=== PATIENT | male | born 1955 | race Caucasian/White ===

== ENCOUNTER 2016-10-18 18:50 | Inpatient (IN) | payer OTHER, BC ==
[2016-10-18] MEDS ORDERED: SODIUM CHLORIDE 500 ML IV STA (19:24)
[2016-10-18 19:26] VITALS: BMI 30.4
[2016-10-18 19:53] LABS: URINE APPEARANCE CLEAR; URINE BILIRUBIN NEGATIVE (NEGATIVE); URINE BLOOD NEGATIVE (NEGATIVE); URINE COLOR DKYELLOW; URINE GLUCOSE (UA) NEGATIVE (NEGATIVE); URINE KETONE NEGATIVE (NEGATIVE); URINE LEUK ESTERASE NEGATIVE (NEGATIVE); URINE NITRITE NEGATIVE (NEGATIVE); URINE UROBILINOGEN NEGATIVE E.U./dl (0.2-1.0)
[2016-10-18 20:03] LABS: URINE PROTEIN 2+ (NEGATIVE)
[2016-10-18 20:11] LABS: BASOPHIL 0.8 % (0-2.0); EOSINOPHIL 7.9 % (0-4.5); MCH 33.2 pg (25.7-33.7); MCHC 33.2 g/dl (32.0-35.9); MEAN CELL VOLUME 99.9 fl (80-96); MEAN PLT VOLUME 8.2 fl (7.5-11.1); NEUTROPHILS 77.3 % (42.8-82.8); PLATELET COUNT 195 K/MM3 (134-434); RDW 13.9 % (11.9-15.9)
[2016-10-18] MEDS ORDERED: FAMOTIDINE 20 MG/50 ML IVPB 50 ML IVPB ONE ×2 (20:14→20:20)
[2016-10-18] MEDS ORDERED: PANTOPRAZOLE SODIUM 100 ML IVPB ONE (20:14)
[2016-10-18 20:16] LABS: URINE MUCUS MANY; URINE RBC 1 /hpf (0-3); URINE WBC 2 /hpf (3-5)
[2016-10-18] MEDS ORDERED: PANTOPRAZOLE SODIUM 40 MG in SODIUM CHLORIDE 100 ML IVPB ONE (20:20)
[2016-10-18 20:38] LABS: INR 1.09 (0.82-1.09)
[2016-10-18 20:40] LABS: ACTIVATED PTT 33.6 SECONDS (26.9-34.4)
[2016-10-18] MEDS ORDERED: SODIUM CHLORIDE 1,000 ML IV SCH (21:00)
[2016-10-18] MEDS ORDERED: dilTIAZem HCL 50 MG/10 ML - 10 ML VIAL IVPUSH ONE (21:00)
[2016-10-18] MEDS ORDERED: dilTIAZem HCL 125 MG/25 ML - 25 ML VIAL ONE (21:06)
[2016-10-18] MEDS ORDERED: HYDROmorphone HCL CARPU-JECT 1 MG/1 ML DISP.SYRIN IVPB ONE (21:42)
--- NOTE | 2016-10-18 21:45 | PDOC ---
History of Present Illness - General Chief Complaint: Vomiting/Diarrhea Stated Complaint: VOMITING/DIARRHEA Time Seen by Provider: 10/18/16 19:05 History Source: Patient, Family Exam Limitations: No Limitations - History of Present Illness Travel History: No Initial Comments: 10/18/16 21:45 61yo Male patient w/ PmHx COPD, Afib, Stage 4 Melanoma metasatic, Nephrectomy ( left) presented to ED c/o nausea, DM, vomiting x 8 w/ diarrhea that began this morning. 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 Patient last chemo dose: . Denies CP, Diff breathing, back pain, fever, rectal bleeding, hematuria, hematemesis, dysuria, or any other complaints at this time. Oncologist: Dr. Glover. PCP: Dr. Andrade. Timing/Duration: reports: constant Quality: reports: severe Abdominal Pain Onset Location: reports: generalized abdomen Pain Radiation: reports: no radiation Activities at Onset: reports: no specific activity Treatment Prior to Arrive: worse with: analgesics, antacids, cold pack, heat, laxative, enema, other Aggravating Factors: worse with: None, Defecation, Eating, Emotional upset, Exertion, [place], Movement, Voiding, Change in position Alleviating Factors: improves with: Defecation, Passing Gas Past History - Travel Traveled outside of the country in the last 30 days: No Close contact w/someone who was outside of country & ill: No - Past Medical History Allergies/Adverse Reactions: Allergies Allergy/AdvReac Type Severity Reaction Status Date / Time codeine [Codeine] AdvReac Severe abd pain Verified 10/18/16 19:05 morphine AdvReac Severe Verified 10/18/16 19:05 Home Medications: Ambulatory Orders Budesonide/Formoterol Fumarate [Symbicort 160-4.5 Mcg Inhaler] 1 ih IH BID 11/07 Metformin HCl [Metformin HCl ER] 500 mg PO BID 12/09/15 Metoprolol Succinate [Toprol XL -] 50 mg PO HS 12/09/15 Albuterol Sulfate Inhaler - [Ventolin HFA Inhaler -] 1 - 2 inh PO Q4H PRN Ascorbic Acid [Vitamin C -] 100 mg PO DAILY 04/09/16 Ferrous Sulfate [Feosol] 325 mg PO BID 04/09/16 Gabapentin [Neurontin] 600 mg PO TID 04/09/16 Metoprolol Succinate [Toprol XL -] 100 mg PO AM 04/09/16 Alprazolam [Xanax] 0.5 mg PO Q8H PRN #42 tablet MDD 1.5 04/12/16 Digoxin [Lanoxin -] 0.25 mg PO DAILY #30 tablet 04/12/16 Dexamethasone [Decadron -] 2 mg PO BID 04/21/16 Pantoprazole Sodium [Protonix -] 40 mg PO DAILY 10/18/16 Prednisone 5 mg PO AM 10/18/16 Prednisone [Deltasone -] 2.5 mg PO HS 10/18/16 Repaglinide [Prandin -] 2 mg PO DAILY 10/18/16 Anemia: No Asthma: Yes Cancer: Yes (MELANOMA stage 4) Cardiac Disorders: Yes (AFIB, SVT) CVA: No COPD: Yes CHF: No Dementia: No Diabetes: No GI Disorders: No Disorders: No HTN: No Hypercholesterolemia: Yes Liver Disease: No Suicide Attempt (Hx): No Seizures: (CLEARED MASS IN FRONTAL LOBE) Thyroid Disease: No - Surgical History Abdominal Surgery: Yes (HOLLY INGUINAL HERNIA REPAIR X2) Appendectomy: No Cardiac Surgery: No (CARDIAC CATH 07/2008 CLEAR) Cholecystectomy: Yes Lung Surgery: No Neurologic Surgery: Yes (CRANIOTOMY 11/18) Orthopedic Surgery: Yes (left femoral dissection and total knee replacement) - Immunization History Td Vaccination: No TDAP Vaccination: No Immunization Up to Date: No - Psycho/Social/Smoking Cessation Hx Anxiety: No Suicidal Ideation: No Smoking Status: No Smoking History: Former smoker Have you smoked in the past 12 months: No Number of Cigarettes Smoked Daily: 0 If you are a former smoker, when did you quit?: 17yrs ago Information on smoking cessation initiated: No 'Breaking Loose' booklet given: 04/22/16 Hx Alcohol Use: Yes (occasional) Drug/Substance Use Hx: No Substance Use Type: None Hx Substance Use Treatment: No Abd/GI Specific PMHX - Complaint Specific PMHX Colitis: Yes Diverticulitis: Yes Gall Bladder Disease: No GERD: No Hepatitis: No Irritable Bowel Synd (IBS): No Pancreatitis: No GI Ulcer Disease: No Review of Systems - Review of Systems Able to Perform ROS?: Yes Is the patient limited Japanese proficient: No Constitutional: No: Chills, Fever Respiratory: No: Orthopnea, Shortness of Breath, Stridor, Wheezing Cardiac (ROS): No: Chest Pain, Lightheadedness, Palpitations, Syncope, Chest Tightness ABD/GI: Yes: Abdominal Distended, Diarrhea, Nausea, Vomiting, Abdominal cramping. No: Constipated, Difficulty Swallowing, Poor Appetite, Poor Fluid Intake, Rectal Bleeding : No: Burning, Dysuria, Flank Pain, Hematuria Musculoskeletal: Yes: Muscle Weakness. No: Back Pain Integumentary: Yes: Sweating. No: Bruising, Erythema, Rash Neurological: Yes: Headache. No: Numbness, Seizure, Tingling, Tremors, Weakness , Unsteady Gait, Ataxia, Dizziness All Other Systems: Reviewed and Negative *Physical Exam - Vital Signs Last Vital Signs Temp Pulse Resp BP Pulse Ox 99.0 F 160 H 18 120/68 93 L 10/18/16 18:50 10/18/16 18:50 10/18/16 18:50 10/18/16 18:50 10/18/16 18:50 - Physical Exam General Appearance: Yes: Nourished, Appropriately Dressed, Moderate Distress. No: Apparent Distress Respiratory/Chest: positive: Lungs Clear, Normal Breath Sounds. negative: Respiratory Distress, Accessory Muscle Use, Labored Respiration, Rapid RR, Crackles, Rales, Stridor, Wheezing Cardiovascular: positive: Tachycardia, Irregular Gastrointestinal/Abdominal: positive: Soft, Increased Bowel Sounds, Distended, Tenderness (generalized tenderness on examination. Neg [place] Sign). negative : Guarding, Rebound Musculoskeletal: positive: Normal Inspection. negative: CVA Tenderness Extremity: positive: Normal Capillary Refill, Normal Inspection, Normal Range of Motion. negative: Pedal Edema, Swelling, Erythema, Inflammation Integumentary: positive: Normal Color, Dry, Warm, Moist. 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, Fully Oriented, Alert, Normal Mood/ Affect, Normal Response, Motor Strength 5/5 Heart Score/ECG Review - ECG Impressions Normal ECG: No Non-specific ST Elevation: No Ischemic Changes: No Bradycardia: No Tachycardia: Afib w/rapid Vent rate Torsades bell Pointes: No WPW: No ED Treatment Course - LABORATORY CBC & Chemistry Diagram: 10/18/16 19:30 10/18/16 22:00 - ADDITIONAL ORDERS Additional order review: Laboratory Results 10/18/16 10/18/16 10/18/16 19:30 19:30 19:30 INR 1.09 PTT (Actin FS) 33.6 D Sodium Cancelled Potassium Cancelled Chloride Cancelled Carbon Dioxide Cancelled Anion Gap Cancelled BUN Cancelled Creatinine Cancelled Creat Clearance w eGFR Cancelled Random Glucose Cancelled Calcium Cancelled Phosphorus Cancelled Magnesium Cancelled Total Bilirubin Cancelled AST Cancelled ALT Cancelled Alkaline Phosphatase Cancelled Creatine Kinase Cancelled Troponin I Cancelled B-Natriuretic Peptide Cancelled Total Protein Cancelled Albumin Cancelled Total Amylase Cancelled Lipase Cancelled Urine Color Urine Appearance Urine pH Ur Specific [place] Urine Protein Urine Glucose (UA) Urine Ketones Urine Blood Urine Nitrite Urine Bilirubin Urine Urobilinogen Ur Leukocyte Esterase Urine RBC Urine WBC Ur Epithelial Cells Urine Mucus 10/18/16 19:20 INR PTT (Actin FS) Sodium Potassium Chloride Carbon Dioxide Anion Gap BUN Creatinine Creat Clearance w eGFR Random Glucose Calcium Phosphorus Magnesium Total Bilirubin AST ALT Alkaline Phosphatase Creatine Kinase Troponin I B-Natriuretic Peptide Total Protein Albumin Total Amylase Lipase Urine Color Dkyellow Urine Appearance Clear Urine pH 5.0 Ur Specific [place] 1.032 Urine Protein 2+ H Urine Glucose (UA) Negative Urine Ketones Negative Urine Blood Negative Urine Nitrite Negative Urine Bilirubin Negative Urine Urobilinogen Negative Ur Leukocyte Esterase Negative Urine RBC 1 Urine WBC 2 Ur Epithelial Cells Rare Urine Mucus Many 10/18/16 19:30 RBC 4.72 D MCV 99.9 H MCHC 33.2 RDW 13.9 D MPV 8.2 Neutrophils % 77.3 Lymphocytes % 6.5 L Monocytes % 7.5 Eosinophils % 7.9 H D Basophils % 0.8 - RADIOLOGY Radiology Studies Ordered: Category Date Time Status ABDOMEN & PELVIS CT W/O CONTR [CT] Stat CT Scan 10/18/16 21:03 Ordered CHEST X-RAY PORTABLE* [RAD] Stat Radiology 10/18/16 19:23 Taken - Medications Given in the ED: ED Medications Discontinued Medications Generic Name Dose Route Start Last Admin Trade Name Freq PRN Reason Stop Dose Admin Diltiazem HCl 10 mg 10/18/16 21:00 10/18/16 21:21 Cardizem Injection - IVPUSH 10/18/16 21:01 10 mg ONCE ONE Administration Sodium Chloride 500 mls @ 500 mls/hr 10/18/16 19:24 10/18/16 19:30 Normal Saline - IV 10/18/16 20:23 500 mls/hr ASDIR STA Administration Pantoprazole Sodium 40 mg/ 100 mls @ 200 mls/hr 10/18/16 20:20 10/18/16 20:20 Sodium Chloride IVPB 10/18/16 20:49 200 mls/hr NOW ONE Administration Famotidine/Sodium Chloride 50 mls @ 100 mls/hr 10/18/16 20:20 10/18/16 21:02 Pepcid 20 Mg Premixed Ivpb - IVPB 10/18/16 20:49 100 mls/hr ONCE ONE Administration *DC/Admit/Observation/Transfer Diagnosis at time of Disposition: Dehydration, Gastroenteritis - Discharge Dispostion Condition at time of disposition: Fair Admit: Yes - Referrals Referrals: Rodrigo Andrade MD [Primary Care Provider] -
[2016-10-18] MEDS ORDERED: HYDROmorphone HCL CARPU-JECT 1 MG/1 ML DISP.SYRIN ONE (21:57)
[2016-10-18 22:47] LABS: ALBUMIN 3.3 g/dl (3.4-5.0); ANION GAP 11 (8-16); BILIRUBIN,TOTAL 0.7 mg/dL (0.2-1.0); CALCIUM 7.7 mg/dL (8.5-10.1); CO2 25 mmol/L (21-32); COCKROFT - GAULT 95.33; GLUCOSE,RANDOM 147 mg/dL (74-106); MAGNESIUM 1.9 mg/dL (1.8-2.4); PHOSPHOROUS 1.7 mg/dL (2.5-4.9); SGOT/AST 23 U/L (15-37); SGPT/ALT 51 U/L (12-78); TOT PROT 6.4 g/dl (6.4-8.2)
[2016-10-18 22:50] LABS: ALK PHOS 106 U/L (45-117); TROPONIN I < 0.02 ng/ml (0.00-0.05)
[2016-10-19] MEDS ORDERED: HYDROmorphone HCL CARPU-JECT 1 MG/1 ML DISP.SYRIN IVPUSH ONE (04:07)
[2016-10-19] MEDS ORDERED: METOPROLOL SUCCINATE 50 MG TAB.SR.24H (FP) PO ONE (04:09)
[2016-10-19] MEDS ORDERED: ALBUTEROL SO4 2.5/IPRATROPIUM 0.5 INH SOL 3 ML VIAL.NEB. NEB ONE (04:23)
--- NOTE | 2016-10-19 04:36 | HP ---
CHIEF COMPLAINT: N/V/D PCP: Lupe HISTORY OF PRESENT ILLNESS: This is a 60 year old male with a past medical history of Stage 4 melanoma with mult surgeries and mets, adrenal insufficiency, HTN, HLD, atrial fibrillation, COPD/Asthma, diverticulosis with GI bleed, colitis who presented to the ED with c/o nausea, vomiting, diarrhea since AM on 10/18/16. Last time he vomited was 3pm. No further vomiting since, but 9 episodes diarrhea total. Pt denies any blood in stool. ER course was notable for: (1) WBC 10, Lactic acid 1.371 (2) CT abdomen and pelvis completed, see results below (3) arrived in afib with RVR, converted after NS Recent Travel: pt denies Past Medical / Surgical History Stage 4 melanoma with mets s/p 6 surgeries: 2005 initial removal on chin; 2009 Left nephrectomy; 2011 brain-frontal lobe resection; 2013 L femur resection; 2014 L TKR and partial femur replacement Diverticulosis with bleed s/p clipping 12/2015 adrenal insufficiency HTN Hyperlipidemia Atrial fibrillation COPD/Asthma B/L inguinal hernia repair Social History: Smoking: Quit 17y ago Alcohol: pt denies Drugs: pt denies Family History: mother with OA, father with OA, DM; 3 grandparents with CA , 1 with [place], 2 sisters healthy Allergies codeine [Codeine] Adverse Reaction (Severe, Verified 10/18/16 19:05) abd pain morphine Adverse Reaction (Severe, Verified 10/18/16 19:05) ABD PAIN HOME MEDICATIONS: 3 Medication Instructions Recorded Budesonide/Formoterol Fumarate 1 ih IH BID 11/08/11 [Symbicort 160-4.5 Mcg Inhaler] Metformin HCl [Metformin HCl ER] 500 mg PO BID 12/09/15 Metoprolol Succinate [Toprol XL -] 50 mg PO HS 12/09/15 Albuterol Sulfate Inhaler - 1 - 2 inh PO Q4H PRN 04/09/16 [Ventolin HFA Inhaler -] Ascorbic Acid [Vitamin C -] 100 mg PO DAILY 04/09/16 Ferrous Sulfate [Feosol] 325 mg PO BID 04/09/16 Gabapentin [Neurontin] 600 mg PO TID 04/09/16 Metoprolol Succinate [Toprol XL -] 100 mg PO AM 04/09/16 Alprazolam [Xanax] 0.5 mg PO Q8H PRN #42 tablet MDD 04/12/16 1.5 Digoxin [Lanoxin -] 0.25 mg PO DAILY #30 tablet 04/12/16 Dexamethasone [Decadron -] 2 mg PO BID 04/21/16 Pantoprazole Sodium [Protonix -] 40 mg PO DAILY 10/18/16 Prednisone 5 mg PO AM 10/18/16 Prednisone [Deltasone -] 2.5 mg PO HS 10/18/16 Repaglinide [Prandin -] 2 mg PO DAILY 10/18/16 REVIEW OF SYSTEMS CONSTITUTIONAL: Absent: fever, chills, diaphoresis, generalized weakness, malaise, loss of appetite, weight change HEENT: Absent: rhinorrhea, nasal congestion, throat pain, throat swelling, difficulty swallowing, mouth swelling, ear pain, eye pain, visual changes CARDIOVASCULAR: Absent: chest pain, syncope, palpitations, irregular heart rate, lightheadedness , peripheral edema RESPIRATORY: Absent: cough, shortness of breath, dyspnea with exertion, orthopnea, wheezing, stridor, hemoptysis GASTROINTESTINAL: Present: abdominal pain, nausea, vomiting, diarrhea Absent: abdominal distension, constipation, melena, hematochezia GENITOURINARY: Absent: dysuria, frequency, urgency, hesitancy, hematuria, flank pain, genital pain MUSCULOSKELETAL: Absent: myalgia, arthralgia, joint swelling, back pain, neck pain SKIN: Absent: rash, itching, pallor HEMATOLOGIC/IMMUNOLOGIC: Absent: easy bleeding, easy bruising, lymphadenopathy, frequent infections ENDOCRINE: Absent: unexplained weight gain, unexplained weight loss, heat intolerance, cold intolerance NEUROLOGIC: Absent: headache, focal weakness or paresthesias, dizziness, unsteady gait, seizure, mental status changes, bladder or bowel incontinence PSYCHIATRIC: Absent: anxiety, depression, suicidal or homicidal ideation, hallucinations. PHYSICAL EXAMINATION Vital Signs - 24 hr 3 10/18/16 10/18/16 18:50 21:20 Temperature 99.0 F Pulse Rate 160 H Pulse Rate [ 120 H Apical] Respiratory 18 20 Rate Blood Pressure 120/68 Blood Pressure 136/83 [Right Arm] O2 Sat by Pulse 93 L 94 L Oximetry (%) GENERAL: Awake, alert, and fully oriented, in no acute distress. HEAD: Normal with no signs of trauma. EYES: Pupils equal, round and reactive to light, extraocular movements intact, sclera anicteric, conjunctiva clear. No lid lag. EARS, NOSE, THROAT: Ears normal, nares patent, oropharynx clear without exudates. Moist mucous membranes. NECK: Normal range of motion, supple without lymphadenopathy, JVD, or masses. LUNGS: inspiratory and expiratory wheezing bilaterally HEART: Regular rate and rhythm, normal S1 and S2 without murmur, rub or gallop. ABDOMEN: Soft, nontender, not distended, normoactive bowel sounds, no guarding, no rebound, no masses. No hepatomegaly or splenomegaly. MUSCULOSKELETAL: Normal range of motion at all joints. No bony deformities or tenderness. No CVA tenderness. UPPER EXTREMITIES: 2+ pulses, warm, well-perfused. No cyanosis. No clubbing. No peripheral edema. LOWER EXTREMITIES: 2+ pulses, warm, well-perfused. No calf tenderness. No peripheral edema. NEUROLOGICAL: Cranial nerves II-XII intact. Normal speech. Normal gait. PSYCHIATRIC: Cooperative. Good eye contact. Appropriate mood and affect. SKIN: Warm, dry, normal turgor, no rashes or lesions noted, normal capillary refill. Laboratory Results - last 24 hr 3 10/18/16 10/18/16 10/18/16 10/18/16 10/18/16 19:30 19:30 22:00 22:02 02:00 WBC 10.0 RBC 4.72 D Hgb 15.7 D Hct 47.2 D MCV 99.9 H MCHC 33.2 RDW 13.9 D Plt Count 195 D MPV 8.2 Neutrophils % 77.3 Lymphocytes % 6.5 L Monocytes % 7.5 Eosinophils % 7.9 H D Basophils % 0.8 INR 1.09 PTT (Actin FS) 33.6 D Sodium 142 Potassium 3.6 Chloride 106 Carbon Dioxide 25 Anion Gap 11 BUN 17 D Creatinine 1.0 D Creat Clearance w eGFR > 60 Random Glucose 147 H D Lactic Acid 1.371 Calcium 7.7 L Phosphorus 1.7 L D Magnesium 1.9 Total Bilirubin 0.7 D AST 23 D ALT 51 D Alkaline Phosphatase 106 D Creatine Kinase 49 Troponin I < 0.02 B-Natriuretic Peptide Cancelled 89.23 Total Protein 6.4 D Albumin 3.3 L D Total Amylase 41 Lipase 164 Urine Color Urine Appearance Urine pH Ur Specific [place] Urine Protein Urine Glucose (UA) Urine Ketones Urine Blood Urine Nitrite Urine Bilirubin Urine Urobilinogen Ur Leukocyte Esterase Urine RBC Urine WBC Ur Epithelial Cells Urine Mucus 3 Urine Color Dkyellow 10/18/16 19:20 Urine Appearance Clear 10/18/16 19:20 Urine pH 5.0 (5.0-8.0) 10/18/16 19:20 Ur Specific [place] 1.032 (1.001-1.035) 10/18/16 19:20 Urine Protein 2+ (NEGATIVE) H 10/18/16 19:20 Urine Glucose (UA) Negative (NEGATIVE) 10/18/16 19:20 Urine Ketones Negative (NEGATIVE) 10/18/16 19:20 Urine Blood Negative (NEGATIVE) 10/18/16 19:20 Urine Nitrite Negative (NEGATIVE) 10/18/16 19:20 Urine Bilirubin Negative (NEGATIVE) 10/18/16 19:20 Ur Leukocyte Esterase Negative (NEGATIVE) 10/18/16 19:20 Urine RBC 1 /hpf (0-3) 10/18/16 19:20 Urine WBC 2 /hpf (3-5) 10/18/16 19:20 Ur Epithelial Cells Rare /hpf (FEW) 10/18/16 19:20 Urine Mucus Many 10/18/16 19:20 CT abdomen and pelvis without contrast: IMAGES: 515 INDICATION: Abdominal pain DATE OF SERVICE: 2016-10-18 23:23:45.0 COMPARISON: 04/22/16 FINDINGS: Lung bases are clear. The visualized cardiac chambers are normal size and configuration. Status post left nephrectomy. Status post cholecystectomy without biliary duct dilation. There is new linear air in the left hepatic lobe and minimally in the right pedicle which could represent postoperative pneumobilia, which is new since the prior exam, portal venous air, suggesting bowel ischemia, cannot be excluded. The hepatic lobe calcification is unchanged.. 10 mm partially calcified density in the gallbladder fossa may represent a retained stone and is unchanged. There is no gallbladder fossa inflammation. Normal unenhanced pancreas, spleen, adrenal glands and right kidney. No change in left inferior lumbar hernia status post surgery which colon protrudes but is not entrapped. The stomach and small bowel are normal. There is diffuse liquids without colonic wall thickening suggesting a viral illness. Colonic diverticulosis without evidence of diverticulitis. There is no aortic aneurysm. There is no significant retroperitoneal lymphadenopathy. The appendix is normal. The urinary bladder and prostate gland are normal. No pelvic free fluid is identified. There is no significant pelvic lymphadenopathy. IMPRESSION: New air in the liver could represent postoperative pneumobilia, but portal venous air, suggesting bowel ischemia, cannot be excluded. Diffuse liquid stool without colonic wall thickening may indicate a diarrheal illness. Stable left inferior lumbar hernia without bowel obstruction. ECG: atrial fibrillation with RVR, rate 130, QTC 456, ST/T wave abnormality:ST depressions 2,3, aVF, v3-v6, present on old ECG but more pronounced, likely rate related. CXR: no acute infiltrate or effusion seen, official read pending. ASSESSMENT/PLAN: 60yM with PMH stage 4 melanoma w/ mult mets and surgeries, adrenal insufficiency , HTN, HLD, Afib, COPD/asthma, diverticulosis, colitis presented to the ED with nausea, vomiting and diarrhea x 1 day. He is being admitted for further management. Atrial fibrillation with RVR - likely due to hypovolemia r/t acute gastritis - now in sinus rhythm, HR improved in 110s - cont IV hydration - repeat ECG in am. - cont home toprol and digoxin - digoxin level. diarrhea/gastroenteritis - stool culture and stool for c diff to r/o other etiology - cont iv hydration, NS @100cc/hr, supportive care hypophosphatemia - 15mmol IVPB over 4 hours - 2 packets neutraphos now - repeat labs in am asthma - duoneb now and q4h PRN for wheezing - cont home symbicort - monitor resp status, change nebs to standing if no improvement or declining. HTN - cont home BP meds adrenal insufficiency - cont home prednisone DVT PPX - defer chemoprophylaxis for now, major GI bleed history FEN - NS @ 100cc/hr - repeat labs am - trial clear liquid diet in am Dispo: pt currently requires inpatient care for management of his emergent condition. Visit type - Emergency Visit Emergency Visit: Yes ED Registration Date: 10/18/16 Care time: The patient presented to the Emergency Department on the above date and was hospitalized for further evaluation of their emergent condition. - New Patient This patient is new to me today: Yes Date on this admission: 10/19/16 - Critical Care Critical Care patient: No
[2016-10-19] MEDS ORDERED: ALPRAZolam 0.25 MG TABLET PO PRN (04:38)
[2016-10-19] MEDS ORDERED: ALBUTEROL SO4 2.5/IPRATROPIUM 0.5 INH SOL 3 ML VIAL.NEB. NEB PRN (04:41)
[2016-10-19] MEDS ORDERED: SODIUM PHOSPHATE - 15 MM in SODIUM CHLORIDE 250 ML IVPB ONE (04:44)
[2016-10-19] MEDS ORDERED: NAPH,MB-DB/K PH,MBDB POWDER PACKET PO ONE (04:47)
[2016-10-19] MEDS: GABAPENTIN 300 MG CAPSULE (FP) PO SCH ×3 (06:42→21:32)
[2016-10-19] MEDS: predniSONE 5 MG TABLET (UD) PO SCH ×2 (06:42→22:43)
[2016-10-19 09:07] LABS: BASOPHIL 0.2 % (0-2.0); EOSINOPHIL 7.9 % (0-4.5); MCH 33.3 pg (25.7-33.7); MCHC 32.9 g/dl (32.0-35.9); MEAN CELL VOLUME 101.1 fl (80-96); MEAN PLT VOLUME 7.9 fl (7.5-11.1); NEUTROPHILS 70.9 % (42.8-82.8); PLATELET COUNT 167 K/MM3 (134-434); RDW 14.4 % (11.9-15.9); WHITE BLOOD COUNT 9.7 K/mm3 (4.0-10.0)
[2016-10-19 09:22] LABS: CALCIUM 7.3 mg/dL (8.5-10.1); COCKROFT - GAULT 79.44; CREATININE 1.2 mg/dL (0.7-1.3); MAGNESIUM 1.7 mg/dL (1.8-2.4)
[2016-10-19] MEDS ORDERED: FERROUS SO4 325 MG TABLET (FP) ONE (09:39)
[2016-10-19] MEDS: DIGOXIN 0.25 MG TABLET (FP) PO SCH (09:40)
[2016-10-19] MEDS: FERROUS SO4 325 MG TABLET (FP) PO SCH ×2 (09:40→21:32)
[2016-10-19] MEDS: BUDESONIDE/FORMETEROL FUMARATE 160/4.5 mcg INHALER IH SCH ×2 (09:40→22:43)
[2016-10-19] MEDS: METOPROLOL SUCCINATE 100 MG TAB.SR.24H (FP) PO SCH (09:40)
[2016-10-19] MEDS: PANTOPRAZOLE 40 MG TABLET (FP) PO SCH (09:40)
[2016-10-19] MEDS ORDERED: ACETAMINOPHEN 325 MG TABLET (FP) ONE (09:56)
[2016-10-19] MEDS ORDERED: DEXAMETHASONE 4 MG TABLET (FP) PO SCH (10:00)
[2016-10-19] MEDS ORDERED: MAGNESIUM SULF 50% (8.12 MEQ/2 ML-1 GM VIAL) IVPB ONE (10:45)
--- NOTE | 2016-10-19 10:46 | PN ---
Progress Note, Physician Chief Complaint: Asked to see for AF, well known to our service from previous admissions. 1. Metastatic melanoma to brain, bone and GI tract with previous GI bleed. 2. PAF Presents to ER w/ one day of nausea, vomiting and diarrhea. Was in AF with moderately elevated V-response, given cardizem with improvement. He denies chest pain, SOB, palps. No PND, orthopnea, edema or syncope. CT showed prior cholecystectomy, pneumobilia and non-specific dilated loops of bowel. PMH: as above. -multiple prior ortho surgeries for mets -Cholecystectomy -Prior cath non-obstructive. -COPD -DM -adrenal insufficiency -GI bleed History of Present Illness: ALL: Codeine and Morphine FH: non-contributory to this presentation SH: , lives with who is an RN here. One daughter. 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 - Current Medication List Current Medications: Active Medications Albuterol/Ipratropium (Duoneb -) 1 amp NEB Q4H PRN PRN Reason: SHORTNESS OF BREATH Alprazolam (Xanax -) 0.5 mg PO Q8H PRN PRN Reason: ANXIETY Budesonide/Formoterol Fumarate (Symbicort 160/4.5mcg -) 1 puff IH BID [facility] Last Admin: 10/19/16 09:40 Dose: Not Given Digoxin (Lanoxin -) 0.25 mg PO DAILY [facility] Last Admin: 10/19/16 09:40 Dose: 0.25 mg Ferrous Sulfate (Feosol -) 325 mg PO BID [facility] Last Admin: 10/19/16 09:40 Dose: 325 mg Gabapentin (Neurontin -) 600 mg PO TID [facility] Last Admin: 10/19/16 06:42 Dose: 600 mg Hydromorphone HCl (Dilaudid Injection -) 1 mg IVPUSH Q4H PRN PRN Reason: PAIN Sodium Chloride (Normal Saline -) 1,000 mls @ 100 mls/hr IV ASDIR [facility] Last Admin: 10/18/16 21:21 Dose: 100 mls/hr Magnesium Sulfate (Magnesium Sulfate) 2 gm IVPB ONCE ONE Stop: 10/19/16 10:46 Metoprolol Succinate (Toprol Xl -) 100 mg PO DAILY [facility] Last Admin: 10/19/16 09:40 Dose: 100 mg Metoprolol Succinate (Toprol Xl -) 50 mg PO HS [facility] Pantoprazole Sodium (Protonix -) 40 mg PO DAILY [facility] Last Admin: 10/19/16 09:40 Dose: 40 mg Prednisone (Deltasone -) 2.5 mg PO HS [facility] Prednisone (Deltasone -) 5 mg PO AM [facility] Last Admin: 10/19/16 06:42 Dose: 5 mg - Objective Vital Signs: Vital Signs Temperature 99.0 F 10/18/16 18:50 Pulse Rate 106 H 10/19/16 09:05 Respiratory Rate 18 10/19/16 09:05 Blood Pressure 113/58 10/19/16 09:05 O2 Sat by Pulse Oximetry (%) 96 10/19/16 09:05 Constitutional: Yes: Calm Eyes: Yes: Conjunctiva Clear Cardiovascular: Yes: Pulse Irregular Respiratory: Yes: CTA Bilaterally Gastrointestinal: Yes: Soft (hyperactive bowel sounds, no rebound or guarding.) Edema: No Neurological: Yes: Alert, Oriented ...Motor Strength: WNL Labs: CBC, BMP 10/19/16 08:15 10/19/16 08:15 INR, PTT INR 1.09 (0.82-1.09) 10/18/16 19:30 Laboratory Tests 12/17/15 10/18/16 10/18/16 06:00 19:30 22:00 WBC 7.3 D Hgb 9.5 L Plt Count 289 INR 1.09 Potassium Creatinine Magnesium Creatine Kinase 49 Troponin I < 0.02 B-Natriuretic Peptide Total Amylase Lipase 164 Digoxin 10/18/16 10/18/16 10/19/16 22:00 22:02 08:15 WBC 9.7 Hgb 14.5 Plt Count 167 INR Potassium Creatinine Magnesium Creatine Kinase Troponin I B-Natriuretic Peptide 89.23 Total Amylase 41 Lipase Digoxin 10/19/16 08:15 WBC Hgb Plt Count INR Potassium 4.1 Creatinine 1.2 Magnesium 1.7 L Creatine Kinase Troponin I B-Natriuretic Peptide Total Amylase Lipase Digoxin 1.0395 - ....Imaging EKG: Image Reviewed (AF with RVR 130bpm, diffuse NSST changes.) Assessment/Plan IMP: Metastatic melanoma Probable/suspected gastroenteritis PAF with RVR in setting gastroenteritis and dehydration REC: Heart rate improved now down to high 90s and low 100s after hydration and IV Cardizem. Continue home meds and IV fluid hydration, heart rate trend should continue to improved. Can use IV cardizem PRN for rates > 130bpm (sustained) Because of his mets to brain/GI tract with previous GI bleed, he has not been fully anticoagulated (risk > benefit) Would continue ASA 81mg as tolerated. GI evaluation is planned.
--- NOTE | 2016-10-19 12:10 | CON.PULM ---
Consult - History of Present Illness Chief Complaint: diarrhea History of Present Illness: 61 year old male developed rapid onset of large amounts of diarrhea and abdominal pain. No fever or hematochezia. No vomiting or hematemesis. No syncope or palpitations. No chest pain. Pt has COPD which has been stable for months. No recent cough, sputum or wheezing. PMH -Stage 4 melanoma (s/p multiple surgical procedures including craniotomy, nephrectomy, femoral bone resection and knee replacement-all for mets). He is s/ p multiple rounds and types of chemotherapies. He has been off chemotherapy since 04/24. Pt's last CT scans were in July. Pt is followed at [facility] re : his melanoma. -PAF -Adrenal Insufficience -COPD:streroid dependent - History Source History Provided By: Patient, Medical Record Limitations to Obtaining History: No Limitations - Past Medical History Cardio/Vascular: Yes: AFIB Pulmonary: Yes: Asthma, COPD Gastrointestinal: Yes: Other (Colitis) Renal/: Yes: Other (L Nephrectomy) Musculoskeletal: Yes: Chronic low back pain Endocrine: Yes: Other (AI) Dermatology: Yes: Melanoma - Past Surgical History Past Surgical History: Yes: Cholecystectomy - Alcohol/Substance Use Hx Alcohol Use: Yes (occasional) - Smoking History Smoking history: Former smoker Have you smoked in the past 12 months: No Aproximately how many cigarettes per day: 0 If you are a former smoker, when did you quit?: 17yrs ago - Social History Usual Living Arrangement: With Spouse History of Recent Travel: No Home Medications - Allergies Allergies/Adverse Reactions: Allergies Allergy/AdvReac Type Severity Reaction Status Date / Time codeine [Codeine] AdvReac Severe abd pain Verified 10/18/16 19:05 morphine AdvReac Severe Verified 10/18/16 19:05 - Home Medications Home Medications: Ambulatory Orders Budesonide/Formoterol Fumarate [Symbicort 160-4.5 Mcg Inhaler] 1 ih IH BID 11/07 Metformin HCl [Metformin HCl ER] 500 mg PO BID 12/09/15 Metoprolol Succinate [Toprol XL -] 50 mg PO HS 12/09/15 Albuterol Sulfate Inhaler - [Ventolin HFA Inhaler -] 1 - 2 inh PO Q4H PRN Ascorbic Acid [Vitamin C -] 100 mg PO DAILY 04/09/16 Ferrous Sulfate [Feosol] 325 mg PO BID 04/09/16 Gabapentin [Neurontin] 600 mg PO TID 04/09/16 Metoprolol Succinate [Toprol XL -] 100 mg PO AM 04/09/16 Alprazolam [Xanax] 0.5 mg PO Q8H PRN #42 tablet MDD 1.5 04/12/16 Digoxin [Lanoxin -] 0.25 mg PO DAILY #30 tablet 04/12/16 Pantoprazole Sodium [Protonix -] 40 mg PO DAILY 10/18/16 Prednisone 5 mg PO AM 10/18/16 Prednisone [Deltasone -] 2.5 mg PO HS 10/18/16 Repaglinide [Prandin -] 2 mg PO DAILY 10/18/16 Physical Exam Vital Sings: Vital Signs Temperature 99.0 F 10/18/16 18:50 Pulse Rate 106 H 10/19/16 09:05 Respiratory Rate 18 10/19/16 09:05 Blood Pressure 113/58 10/19/16 09:05 O2 Sat by Pulse Oximetry (%) 96 10/19/16 09:05 Constitutional: Yes: Moderate Distress Eyes: No: Sclera Icterus HENT: Yes: Atraumatic, Normocephalic Neck: Yes: Supple, Trachea Midline Cardiovascular: Yes: Pulse Irregular. No: JVD, Gallop Respiratory: Yes: CTA Bilaterally ...Clubbing: No Gastrointestinal: Yes: Hyperactive Bowel Sounds, Tenderness (diffuse). No: Hepatomegaly, Palpable Mass, Splenomegaly, Tenderness, Rebound, Vomiting Edema: No Neurological: Yes: Alert, Oriented Labs: CBC, BMP 10/19/16 08:15 10/19/16 08:15 Imaging - Results Chest X-ray: Report Reviewed, Image Reviewed (MORGAN) Cat Scan: Report Reviewed, Image Reviewed Problem List - Problems (1) Sepsis Code(s): A41.9 - SEPSIS, UNSPECIFIED ORGANISM (2) COPD (chronic obstructive pulmonary disease) Code(s): J44.9 - CHRONIC OBSTRUCTIVE PULMONARY DISEASE, UNSPECIFIED Assessment/Plan 61 year old male who developed diarrhea and air in the portal vein. -r/o Sepsis, r/o C.Difficile colitis -COPD-pt on systemic steroids because of adrenal insufficiency. Respiratory status is stable at present -PAF-ventricular rate OK -Metastatic Melanoma-off chemotx since 04/24: being monitored by oncology at [facility]-no recurrence at last evaluation. The case was discussed with Dr. Aranda and Dr. García Suggest Antibiotics per Dr. Rivers GI f/u Monitor for hypotension-fluids PRN. In addition since pt is known to have adrenal insufficiency, he may need additional systemic steroids while under physiologic stress secondary to infection. Symbicort Albuterol PRN O2 PRN to maintain > SaO2 Thank you for referring this patient for consultation.
[2016-10-19] MEDS ORDERED: SODIUM CHLORIDE 1,000 ML IV SCH ×2 (12:45→17:16)
--- NOTE | 2016-10-19 12:53 | CON.GI ---
Consult Consult Specialty:: Gastroenterology Referred by:: Dr. Andrade Reason for Consultation:: Diarrhea and abdominal pain - History of Present Illness Chief Complaint: Diffuse abdominal colicky pain and explosive diarrhea History of Present Illness: 61M presents with sudden onset of diffuse severe colicky abdominal pain and explosive nonbloody diarrhea that began yesterday. He did eat chicken oz day before but no one else at home has diarrhea. He has not had antibiotics or foreign travel in te past 6 months. He last got chemotherapy for metastatic melanoma in 04/24. He did have a similar colitis attack in 2015 but this was related to a chemotherapeutic drug. Colonoscopy in 12/23 failed to reveal colitis but did reveal many pigmented lesions and diverticulosis. Biopsies failed to substantiate melanoma. His CT now reveals liver lesions and gas in bot intrahepatic portal veins and ducts. he has not had any recent biliary tract procedures and had a cholecystectomy remotely. 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) Cardio/Vascular: Yes: AFIB Pulmonary: Yes: Asthma, COPD, Pneumonia Gastrointestinal: Yes: Diverticulosis, Other (colon polyp= adenoma 2011) Renal/: Yes: Other (L Nephrectomy) Heme/Onc: Yes: Other (metastatic melanoma last rx'ed 04/24) Musculoskeletal: Yes: Chronic low back pain Endocrine: Yes: Other (AI) Dermatology: Yes: Melanoma - Past Surgical History Past Surgical History: Yes: Cholecystectomy, Colonoscopy, Craniotomy (for melanoma metastases with seizures), Hernia Repair (umbilical hernia repair), Nephrectomy (melanoma invasion), Tonsillectomy, Upper Endoscopy Additional Surgical History: LUE tendon repairs. multiple MOHs surgeries cutaneously ( chin, knee). 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 Place of : [facility] History of Recent Travel: No Home Medications - Allergies Allergies/Adverse Reactions: Allergies Allergy/AdvReac Type Severity Reaction Status Date / Time codeine [Codeine] AdvReac Severe abd pain Verified 10/18/16 19:05 morphine AdvReac Severe Verified 10/18/16 19:05 - Home Medications Home Medications: Ambulatory Orders Budesonide/Formoterol Fumarate [Symbicort 160-4.5 Mcg Inhaler] 1 ih IH BID 11/07 Metformin HCl [Metformin HCl ER] 500 mg PO BID 12/09/15 Metoprolol Succinate [Toprol XL -] 50 mg PO HS 12/09/15 Albuterol Sulfate Inhaler - [Ventolin HFA Inhaler -] 1 - 2 inh PO Q4H PRN Ascorbic Acid [Vitamin C -] 100 mg PO DAILY 04/09/16 Ferrous Sulfate [Feosol] 325 mg PO BID 04/09/16 Gabapentin [Neurontin] 600 mg PO TID 04/09/16 Metoprolol Succinate [Toprol XL -] 100 mg PO AM 04/09/16 Alprazolam [Xanax] 0.5 mg PO Q8H PRN #42 tablet MDD 1.5 04/12/16 Digoxin [Lanoxin -] 0.25 mg PO DAILY #30 tablet 04/12/16 Pantoprazole Sodium [Protonix -] 40 mg PO DAILY 10/18/16 Prednisone 5 mg PO AM 10/18/16 Prednisone [Deltasone -] 2.5 mg PO HS 10/18/16 Repaglinide [Prandin -] 2 mg PO DAILY 10/18/16 Family Disease History - Family Disease History Family Disease History: Diabetes: Father, CA: Son (melanoma) Review of Systems - Review of Systems Constitutional: reports: Chills Eyes: reports: No Symptoms HENT: reports: No Symptoms Neck: reports: No Symptoms Cardiovascular: reports: No Symptoms Respiratory: reports: No Symptoms Gastrointestinal: reports: Abdominal Pain, Diarrhea Genitourinary: reports: No Symptoms Musculoskeletal: reports: No Symptoms Physical Exam-GI Vital Signs: Vital Signs Temperature 98.3 F 10/19/16 12:38 Pulse Rate 82 10/19/16 12:38 Respiratory Rate 18 10/19/16 12:38 Blood Pressure 105/58 10/19/16 12:38 O2 Sat by Pulse Oximetry (%) 96 10/19/16 12:38 Current Medications Generic Name Dose Route Start Last Admin Trade Name Freq PRN Reason Stop Dose Admin Albuterol/Ipratropium 1 amp 10/19/16 04:41 Duoneb - NEB Q4H PRN SHORTNESS OF BREATH Alprazolam 0.5 mg 10/19/16 04:38 Xanax - PO Q8H PRN ANXIETY Budesonide/Formoterol Fumarate 1 puff 10/19/16 10:00 10/19/16 09:40 Symbicort 160/4.5mcg - IH Not Given BID SEBASTIÁN Digoxin 0.25 mg 10/19/16 10:00 10/19/16 09:40 Lanoxin - PO 0.25 mg DAILY SEBASTIÁN Administration Ferrous Sulfate 325 mg 10/19/16 10:00 10/19/16 09:40 Feosol - PO 325 mg BID SEBASTI[facility]N Administration Gabapentin 600 mg 10/19/16 06:00 10/19/16 06:42 Neurontin - PO 600 mg TID SEBASTIÁN Administration Hydromorphone HCl 1 mg 10/19/16 04:35 Dilaudid Injection - IVPUSH Q4H PRN PAIN Metronidazole 100 mls @ 100 mls/hr 10/19/16 12:30 Flagyl 500mg Premixed Ivpb - IVPB Q8H-IV SEBASTI[facility]N Sodium Chloride 1,000 mls @ 100 mls/hr 10/19/16 12:45 Normal Saline - IV ASDIR SEBASTIÁN Metoprolol Succinate 100 mg 10/19/16 10:00 10/19/16 09:40 Toprol Xl - PO 100 mg DAILY SEBASTIÁN Administration Metoprolol Succinate 50 mg 10/19/16 22:00 Toprol Xl - PO HS SEBASTIÁN Pantoprazole Sodium 40 mg 10/19/16 10:00 10/19/16 09:40 Protonix - PO 40 mg DAILY SEBASTIÁN Administration Piperacillin Sod/Tazobactam Sod 4.5 gm 10/19/16 12:30 Zosyn 4.5gm Ivpb (Pre-Docked) IVPB Q8H-IV SEBASTI[facility]N Prednisone 2.5 mg 10/19/16 22:00 Deltasone - PO HS ESBASTIÁN Prednisone 5 mg 10/19/16 07:00 10/19/16 06:42 Deltasone - PO 5 mg AM SEBASTIÁN Administration CBC,CMP WBC 9.7 K/mm3 (4.0-10.0) 10/19/16 08:15 RBC 4.37 M/mm3 (4.00-5.60) 10/19/16 08:15 Hgb 14.5 GM/dL (11.7-16.9) 10/19/16 08:15 Hct 44.2 % (35.4-49) 10/19/16 08:15 MCV 101.1 fl (80-96) H 10/19/16 08:15 MCHC 32.9 g/dl (32.0-35.9) 10/19/16 08:15 RDW 14.4 % (11.9-15.9) 10/19/16 08:15 Plt Count 167 K/MM3 (134-434) 10/19/16 08:15 MPV 7.9 fl (7.5-11.1) 10/19/16 08:15 Neutrophils % 70.9 % (42.8-82.8) 10/19/16 08:15 Lymphocytes % 11.0 % (8-40) D 10/19/16 08:15 Monocytes % 10.0 % (3.8-10.2) 10/19/16 08:15 Eosinophils % 7.9 % (0-4.5) H 10/19/16 08:15 Basophils % 0.2 % (0-2.0) 10/19/16 08:15 Sodium 142 mmol/L (136-145) 10/19/16 08:15 Potassium 4.1 mmol/L (3.5-5.1) 10/19/16 08:15 Chloride 106 mmol/L (98-107) 10/19/16 08:15 Carbon Dioxide 26 mmol/L (21-32) 10/19/16 08:15 Anion Gap 10 (8-16) 10/19/16 08:15 BUN 16 mg/dL (7-18) 10/19/16 08:15 Creatinine 1.2 mg/dL (0.7-1.3) 10/19/16 08:15 Creat Clearance w eGFR > 60 (>60) 10/18/16 22:00 Random Glucose 139 mg/dL (74-106) H 10/19/16 08:15 Lactic Acid 1.371 mmol/L (0.4-2.0) 10/19/16 02:00 Calcium 7.3 mg/dL (8.5-10.1) L 10/19/16 08:15 Phosphorus 3.0 mg/dL (2.5-4.9) D 10/19/16 08:15 Magnesium 1.7 mg/dL (1.8-2.4) L 10/19/16 08:15 Total Bilirubin 0.7 mg/dL (0.2-1.0) D 10/18/16 22:00 AST 23 U/L (15-37) D 10/18/16 22:00 ALT 51 U/L (12-78) D 10/18/16 22:00 Alkaline Phosphatase 106 U/L (45-117) D 10/18/16 22:00 Creatine Kinase 49 IU/L (39-308) 10/18/16 22:00 Troponin I < 0.02 ng/ml (0.00-0.05) 10/18/16 22:00 B-Natriuretic Peptide 89.23 pg/ml (5-125) 10/18/16 22:02 Total Protein 6.4 g/dl (6.4-8.2) D 10/18/16 22:00 Albumin 3.3 g/dl (3.4-5.0) L D 10/18/16 22:00 Total Amylase 41 U/L (25-115) 10/18/16 22:00 Lipase 164 U/L (73-393) 10/18/16 22:00 Constitutional: Yes: Mild Distress Eyes: Yes: Conjunctiva Clear HENT: Yes: Normocephalic Neck: Yes: Supple Cardiovascular: Yes: Regular Rate and Rhythm Respiratory: Yes: CTA Bilaterally Gastrointestinal Inspection: Yes: Scars (LIH, RIH, left flank, laparoscopic) ...Auscultate: Yes: Hyperactive Bowel Sounds ...Palpate: Yes: Soft, Other (nontender at present) ...Rectal Exam: Yes: Guaiac Negative (loose stool) Musculoskeletal: Yes: WNL Edema: No Labs: CBC, BMP 10/19/16 08:15 10/19/16 08:15 INR, PTT INR 1.09 (0.82-1.09) 10/18/16 19:30 Assessment/Plan I suspect an infectious colitis with concern that he has sepsis ascending via the portal venous system. Clostridia difficile and the ususal enteric pathogens need to be exclude. The pneumobilia is more difficult to explain but given the liver lesions suspected to be recurrent melanoma there may be some intraductal invasion. I have discussed antibiotic management with Dr García. Stools will be cultured. When stabizied an MRCP will be considered. Will follow
[2016-10-19] MEDS ORDERED: PIPERACILLIN/TAZOB 4.5 GM 100 ML IVPB ONE (13:04)
[2016-10-19] MEDS ORDERED: MAGNESIUM SULF 50% (8.12 MEQ/2 ML-1 GM VIAL) ONE (13:04)
[2016-10-19] MEDS ORDERED: METRONIDAZOLE 500 MG PREMIXED 100 ML IVPB ONE (13:05)
--- NOTE | 2016-10-19 13:06 | PN ---
Progress Note (short form) - Note Progress Note: ID consult dictated imp/reccd 61 year old male with metastatic melanoma- currently in remission- last treated in April admitted with sudden onset of multiple episodes of diarrhea nonbloody and abdominal pain recalls eating chicken on Monday night no salad no uncooked foots no travel pet dog has been eating the same foods as his who is not sick came to ED last night and found to be in rapid afib blood cultures sent ct scan with ?pneumobilia reviewed with radiologist he is profusely diaphoretic and c/o gas pains still having diarrhea yellow stool d/w GI, d/w Dr Hutchinson, d/w hospitilist suspect sepsis ?gastroenteritis, with air in portal venous system (new) will cover broadly with zosyn flagy ? tumor erosion ? liver abscess check liver sonogram may need repeat ct scan with iv contrast obtain stool cultures and cdiff no recent antibiotic use no recent hospitalizations afib with RVR metastatic melanoma
[2016-10-19] MEDS: METRONIDAZOLE 500 MG PREMIXED 100 ML IVPB SCH ×2 (13:09→17:09)
[2016-10-19] MEDS ORDERED: DEXTROSE 5%-0.45% SALINE 1,000 ML IV SCH (13:15)
[2016-10-19] MEDS: PIPERACILLIN/TAZOB 4.5 GM/100 ML PRE-DOCKED IVPB SCH ×2 (13:37→22:35)
--- NOTE | 2016-10-19 14:15 | CONS ---
DATE OF CONSULTATION: DATE OF DICTATION: 10/19/2016 Requested by the hospitalist service. This is a 61-year-old man. Past medical history of stage 4 melanoma. He was last treated in April and has been in remission since that time. He last had a PET scan in July where he was felt to be in continued remission. He has a history of hypertension, hyperlipidemia, atrial fibrillation, adrenal insufficiency, COPD, diverticulosis, and colitis. He presents to the emergency room with complaints of multiple episodes of diarrhea and then diffuse abdominal pain that started yesterday morning. He reports no change in his regular routine. He lives with his . They eat the same food. He had chicken to eat on the night before this started. His ate all the same foods he ate. He did not eat any salad. He did not eat any raw foods. He did not eat any soft cheeses. He had some vomiting, as well, that is now resolved. He continues to have diarrhea. It is yellow and non-bloody. He continues to have abdominal pain which he describes as gas pain. All the diarrhea is non-bloody. He was seen in the emergency room and treated with IV fluids. He had a CAT scan of his abdomen and pelvis done that showed new air in the portal venous system cannot be excluded. This was compared with a CAT scan from April 2016 and is apparently new. I am asked to see him for antibiotic recommendations. He denies any chest pain. He denies any trouble with his breathing. There is no history of any recent travel. PAST MEDICAL HISTORY: Notable for stage 4 melanoma. He has had 6 surgeries. He has had melanoma removed from his chin. He had a left nephrectomy in 2009. He had a frontal lobe resection in his brain in 2011. He had a femur resection in 2013, a left total knee replacement in 2014, and partial femur replacement. He has a history of diverticulosis with bleed, status post clipping in December 2015, adrenal insufficiency, hypertension, hyperlipidemia, atrial fibrillation, COPD, asthma, bilateral inguinal hernia repair. FAMILY HISTORY: Notable for osteoarthritis in his parents and grandparents have a history of malignancy. SOCIAL HISTORY: He is . 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 He says that he stopped smoking 17 years ago. There is no history of any alcohol or drug use. There is no history of any travel. ALLERGIES: He is allergic to CODEINE and MORPHINE. MEDICATIONS AN OUTPATIENT: Include Symbicort, metformin, Toprol XL, Ventolin inhaler, vitamin C, Feosol, Neurontin, Xanax, Lanoxin, Protonix, prednisone, and Prandin. REVIEW OF SYSTEMS: He denies chest pain. He denies any headache. He denies any trouble breathing. He notes gas pain. He notes continued diarrhea and he is extremely diaphoretic. PHYSICAL EXAMINATION: General: He is awake and alert. Vital signs: T-max is 99.3, current temperature is 98.3; pulse of 82; blood pressure 105/58; respiratory rate is 18. HEENT: He is normocephalic. His eyes are anicteric. Neck: Supple. Lungs: Clear to auscultation. Heart: Regular rate and rhythm. Abdomen: Soft. Slightly distended. He has good bowel sounds. Extremities: Without edema. He has no rash. White count is 9.7, hemoglobin 14.5, platelets are 167. INR is 1. BUN is 16 and creatinine is 1.2. LFTs are normal. Urinalysis has 2 white cells. Blood cultures are pending. Chest x-ray is negative. CAT scan findings are as previously discussed with status post cholecystectomy; hepatomegaly; interval pneumobilia; question of portal venous air; hiatal hernia; status post left nephrectomy; with fluid-filled small-bowel loops in the left flank; there are no signs of diverticulitis. In summary, this is a 61-year-old man with metastatic melanoma, currently not on treatment, admitted with acute onset of diarrhea. Given his diaphoresis and diarrhea, concern is for sepsis. The air in the biliary tree, as well, is concerning for anaerobic infection. We will cover him quite broadly, at this time, with Zosyn and Flagyl. Blood cultures have been sent. He has not been on recent antibiotics, but would obtain stool culture and stool C difficile. Would continue his IV fluids. Further imaging per GI. The case was discussed at length with Dr. Andrade, Dr. Bonilla, as well as the hospitalist. Further recommendations to follow, based on his clinical course. ALIYAH SHELL M.D. [id number]
--- NOTE | 2016-10-19 14:16 | EKG ---
Test Reason : Blood Pressure : / mmHG Vent. Rate : 093 BPM Atrial Rate : 093 BPM P-R Int : 146 ms QRS Dur : 094 ms QT Int : 344 ms P-R-T Axes : 066 079 065 degrees QTc Int : 427 ms SINUS RHYTHM WITH PREMATURE ATRIAL COMPLEXES WITH ABERRANT CONDUCTION NONSPECIFIC ST AND T WAVE ABNORMALITY ABNORMAL ECG WHEN COMPARED WITH ECG OF 18-OCT-2016 20:22, SINUS RHYTHM HAS REPLACED ATRIAL FIBRILLATION NONSPECIFIC T WAVE ABNORMALITY HAS REPLACED INVERTED T WAVES IN INFERIOR LEADS NONSPECIFIC T WAVE ABNORMALITY NOW EVIDENT IN LATERAL LEADS Confirmed by MARK BLOCK MD ([id number]) on 10/19/2016 2:16:10 PM Referred By: Diana ROMAN Confirmed By:MARK BLOCK MD
--- NOTE | 2016-10-19 14:16 | EKG ---
Test Reason : Blood Pressure : / mmHG Vent. Rate : 130 BPM Atrial Rate : 097 BPM P-R Int : 000 ms QRS Dur : 088 ms QT Int : 310 ms P-R-T Axes : 000 064 029 degrees QTc Int : 456 ms ATRIAL FIBRILLATION WITH RAPID VENTRICULAR RESPONSE ABNORMAL ECG WHEN COMPARED WITH ECG OF 22-APR-2016 14:17, ATRIAL FIBRILLATION HAS REPLACED SINUS RHYTHM VENT. RATE HAS INCREASED BY 55 BPM INVERTED T WAVES HAVE REPLACED NONSPECIFIC T WAVE ABNORMALITY IN INFERIOR LEADS T WAVE INVERSION NO LONGER EVIDENT IN ANTEROLATERAL LEADS Confirmed by MCKAYLA MORRIS, MARK ([id number]) on 10/19/2016 2:15:54 PM Referred By: Confirmed By:MARK BLOCK MD
[2016-10-19] MEDS: HYDROmorphone HCL CARPU-JECT 1 MG/1 ML DISP.SYRIN IVPUSH PRN ×2 (17:09→22:44)
[2016-10-19] MEDS: SODIUM CHLORIDE 1,000 ML IV SCH (21:32)
[2016-10-19] MEDS: METOPROLOL SUCCINATE 50 MG TAB.SR.24H (FP) PO SCH (21:32)
[2016-10-19] MEDS: ACETAMINOPHEN 325 MG TABLET (FP) PO PRN (21:33)
[2016-10-19] MEDS ORDERED: predniSONE 2.5 MG TABLET PO SCH (22:00)
[2016-10-19] MEDS: PIPERACILLIN/TAZOB 4.5 GM 4.5 GM in DEXTROSE 5%-WATER - 100 ML IVPB SCH (22:15)
[2016-10-20] MEDS: METRONIDAZOLE 500 MG PREMIXED 100 ML IVPB SCH ×3 (01:03→18:10)
[2016-10-20] MEDS: PIPERACILLIN/TAZOB 4.5 GM 4.5 GM in DEXTROSE 5%-WATER - 100 ML IVPB SCH ×3 (02:49→19:13)
[2016-10-20] MEDS ORDERED: VANCOMYCIN 1,250 MG in DEXTROSE 5%-WATER - 250 ML IVPB ONE (03:45)
[2016-10-20] MEDS: ACETAMINOPHEN 325 MG TABLET (FP) PO PRN (05:01)
[2016-10-20] MEDS: GABAPENTIN 300 MG CAPSULE (FP) PO SCH ×3 (05:01→21:17)
[2016-10-20] MEDS: predniSONE 5 MG TABLET (UD) PO SCH ×2 (06:14→21:17)
[2016-10-20 07:31] LABS: BASOPHIL 0.2 % (0-2.0); EOSINOPHIL 7.4 % (0-4.5); MCH 33.8 pg (25.7-33.7); MCHC 34.5 g/dl (32.0-35.9); MEAN CELL VOLUME 98.1 fl (80-96); MEAN PLT VOLUME 7.4 fl (7.5-11.1); NEUTROPHILS 74.7 % (42.8-82.8); PLATELET COUNT 154 K/MM3 (134-434); RDW 13.8 % (11.9-15.9); WHITE BLOOD COUNT 5.1 K/mm3 (4.0-10.0)
[2016-10-20 07:58] LABS: ALBUMIN 2.7 g/dl (3.4-5.0); BILIRUBIN,DIRECT 0.2 mg/dL (0.0-0.2)
[2016-10-20 07:59] LABS: ALBUMIN 2.7 g/dl (3.4-5.0); ANION GAP 8 (8-16); CO2 25 mmol/L (21-32); GLUCOSE,RANDOM 140 mg/dL (74-106); MAGNESIUM 2.2 mg/dL (1.8-2.4); SGOT/AST 48 U/L (15-37); SGPT/ALT 70 U/L (12-78)
[2016-10-20 08:00] LABS: BILIRUBIN,TOTAL 0.9 mg/dL (0.2-1.0); TOT PROT 5.1 g/dl (6.4-8.2)
[2016-10-20 08:01] LABS: ALK PHOS 82 U/L (45-117); BILIRUBIN,TOTAL 0.7 mg/dL (0.2-1.0); C-REACTIVE PROTEIN 12.5 MG/DL (0.00-0.3); COCKROFT - GAULT 86.66; CREATININE 1.1 mg/dL (0.7-1.3); TOT PROT 4.9 g/dl (6.4-8.2)
[2016-10-20 08:25] LABS: CALCIUM 6.4 mg/dL (8.5-10.1)
--- NOTE | 2016-10-20 09:24 | PN ---
Progress Note, Physician Chief Complaint: back in sinus no further diarrhea - Current Medication List Current Medications: Active Medications Acetaminophen (Tylenol -) 650 mg PO Q6H PRN PRN Reason: FEVER OR PAIN Last Admin: 10/20/16 05:01 Dose: 650 mg Albuterol/Ipratropium (Duoneb -) 1 amp NEB Q4H PRN PRN Reason: SHORTNESS OF BREATH Alprazolam (Xanax -) 0.5 mg PO Q8H PRN PRN Reason: ANXIETY Last Admin: 10/19/16 22:43 Dose: 0.5 mg Budesonide/Formoterol Fumarate (Symbicort 160/4.5mcg -) 1 puff IH BID [facility] Last Admin: 10/19/16 22:43 Dose: 1 puff Calcium Carbonate/Cholecalciferol (Os-Odell 500+D -) 1 tab PO BID [facility] Digoxin (Lanoxin -) 0.25 mg PO DAILY [facility] Last Admin: 10/19/16 09:40 Dose: 0.25 mg Ferrous Sulfate (Feosol -) 325 mg PO BID [facility] Last Admin: 10/19/16 21:32 Dose: 325 mg Gabapentin (Neurontin -) 600 mg PO TID [facility] Last Admin: 10/20/16 05:01 Dose: 600 mg Hydromorphone HCl (Dilaudid Injection -) 1 mg IVPUSH Q4H PRN PRN Reason: PAIN Last Admin: 10/19/16 22:44 Dose: 1 mg Metronidazole (Flagyl 500mg Premixed Ivpb -) 100 mls @ 100 mls/hr IVPB Q8H-IV [facility] Last Admin: 10/20/16 01:03 Dose: 100 mls/hr Sodium Chloride (Normal Saline -) 1,000 mls @ 100 mls/hr IV ASDIR [facility] Last Admin: 10/19/16 21:32 Dose: 100 mls/hr Piperacillin Sod/Tazobactam (Sod 4.5 gm/ Dextrose) 100 mls @ 200 mls/hr IVPB Q8H-IV [facility] Last Admin: 10/20/16 02:49 Dose: 200 mls/hr Metoprolol Succinate (Toprol Xl -) 100 mg PO DAILY [facility] Last Admin: 10/19/16 09:40 Dose: 100 mg Metoprolol Succinate (Toprol Xl -) 50 mg PO HS [facility] Last Admin: 10/19/16 21:32 Dose: 50 mg Pantoprazole Sodium (Protonix -) 40 mg PO DAILY [facility] Last Admin: 10/19/16 09:40 Dose: 40 mg Prednisone (Deltasone -) 5 mg PO AM [facility] Last Admin: 10/20/16 06:14 Dose: 5 mg Prednisone (Deltasone -) 2.5 mg PO HS [facility] Last Admin: 10/19/16 22:43 Dose: 2.5 mg - Objective Vital Signs: Vital Signs Temperature 99.3 F 10/20/16 06:00 Pulse Rate 76 10/20/16 06:00 Respiratory Rate 20 10/20/16 06:00 Blood Pressure 126/58 10/20/16 06:00 O2 Sat by Pulse Oximetry (%) 97 10/19/16 22:00 Constitutional: Yes: Calm Eyes: Yes: Conjunctiva Clear Cardiovascular: Yes: Regular Rate and Rhythm Respiratory: Yes: CTA Bilaterally Gastrointestinal: Yes: Soft Edema: No Neurological: Yes: Alert Labs: CBC, BMP 10/20/16 06:30 10/20/16 06:30 INR, PTT INR 1.09 (0.82-1.09) 10/18/16 19:30 Laboratory Tests 10/20/16 10/20/16 06:30 06:30 WBC 5.1 D Hgb 12.8 D Plt Count 154 Sodium 141 Potassium 3.5 BUN 11 D Creatinine 1.1 C-Reactive Protein 12.5 H D Assessment/Plan IMP: Metastatic melanoma Probable/suspected gastroenteritis vs colitis PAF with RVR in setting gastroenteritis and dehydration REC: Back in sinus with hydration and as diarrhea has subsided. Continue home meds GI work up in progress
[2016-10-20] MEDS ORDERED: PT OWN MED DRAWER 7, Y5N ONE ×3 (10:39→20:24)
[2016-10-20] MEDS: SODIUM CHLORIDE 1,000 ML IV SCH ×2 (10:47→18:09)
[2016-10-20] MEDS: BUDESONIDE/FORMETEROL FUMARATE 160/4.5 mcg INHALER IH SCH ×2 (10:55→21:17)
[2016-10-20] MEDS: CALCIUM 500MG/VIT-D 200 UNITS COMBO TABLET (FP) PO SCH ×2 (10:56→21:17)
[2016-10-20] MEDS: DIGOXIN 0.25 MG TABLET (FP) PO SCH (10:56)
[2016-10-20] MEDS: PANTOPRAZOLE 40 MG TABLET (FP) PO SCH (10:57)
[2016-10-20] MEDS: METOPROLOL SUCCINATE 100 MG TAB.SR.24H (FP) PO SCH (10:57)
[2016-10-20] MEDS: FERROUS SO4 325 MG TABLET (FP) PO SCH ×2 (10:57→21:17)
--- NOTE | 2016-10-20 13:55 | PN ---
Physical Exam: SUBJECTIVE: Patient seen and examined. He says he feels tired. He had a small BM this morning. Denies abd pain, fever, chills, diaphoresis. Tele: sinus OBJECTIVE: Vital Signs Period Temp Pulse Resp BP Sys/Betancourt Pulse Ox Last 24 Hr 98.7 F-99.3 F 72-80 18-20 94-126/49-65 97-97 PE Gen: plethoric Neuro: alert, awake, cn 2-12intact Pulm: CTAB CV: s1 s2 rrr no mrg Abd: s nt + hernia +bs Ext: warm no le edema Laboratory Results - last 24 hr 10/20/16 10/20/16 10/20/16 06:30 06:30 06:30 WBC 5.1 D RBC 3.80 L Hgb 12.8 D Hct 37.3 D MCV 98.1 H MCHC 34.5 RDW 13.8 Plt Count 154 MPV 7.4 L Neutrophils % 74.7 Lymphocytes % 10.8 Monocytes % 6.9 Eosinophils % 7.4 H Basophils % 0.2 Sodium 141 Potassium 3.5 Chloride 108 H Carbon Dioxide 25 Anion Gap 8 BUN 11 D Creatinine 1.1 Creat Clearance w eGFR > 60 Random Glucose 140 H Calcium 6.4 L* Magnesium 2.2 D Total Bilirubin 0.9 D 0.7 Direct Bilirubin 0.2 D GGT 96 H D AST 48 H D 48 H ALT 70 D 70 Alkaline Phosphatase 85 82 C-Reactive Protein 12.5 H D Total Protein 5.1 L D 4.9 L Albumin 2.7 L 2.7 L Total Amylase 32 D Lipase 121 Active Medications Generic Name Dose Route Start Last Admin Trade Name Freq PRN Reason Stop Dose Admin Acetaminophen 650 mg 10/19/16 20:51 10/20/16 05:01 Tylenol - PO 650 mg Q6H PRN Administration FEVER OR PAIN Albuterol/Ipratropium 1 amp 10/19/16 04:41 Duoneb - NEB Q4H PRN SHORTNESS OF BREATH Alprazolam 0.5 mg 10/19/16 04:38 10/19/16 22:43 Xanax - PO 0.5 mg Q8H PRN Administration ANXIETY Budesonide/Formoterol Fumarate 1 puff 10/19/16 10:00 10/20/16 10:55 Symbicort 160/4.5mcg - IH 1 puff BID [facility] Administration Calcium Carbonate/Cholecalciferol 1 tab 10/20/16 10:00 10/20/16 10:56 Os-Odell 500+D - PO 1 tab BID SE[facility]N Administration Digoxin 0.25 mg 10/19/16 10:00 10/20/16 10:56 Lanoxin - PO 0.25 mg DAILY SE[facility] Administration Ferrous Sulfate 325 mg 10/19/16 10:00 10/20/16 10:57 Feosol - PO 325 mg BID [facility] Administration Gabapentin 600 mg 10/19/16 06:00 10/20/16 05:01 Neurontin - PO 600 mg TID [facility] Administration Hydromorphone HCl 1 mg 10/19/16 04:35 10/19/16 22:44 Dilaudid Injection - IVPUSH 1 mg Q4H PRN Administration PAIN Metronidazole 100 mls @ 100 mls/hr 10/19/16 12:30 10/20/16 10:48 Flagyl 500mg Premixed Ivpb - IVPB 100 mls/hr Q8H-IV [facility]N Administration Sodium Chloride 1,000 mls @ 100 mls/hr 10/19/16 17:30 10/20/16 10:47 Normal Saline - IV 100 mls/hr ASDIR [facility] Administration Piperacillin Sod/Tazobactam 100 mls @ 200 mls/hr 10/19/16 21:45 10/20/16 11:57 Sod 4.5 gm/ Dextrose IVPB 200 mls/hr Q8H-IV [facility] Administration Metoprolol Succinate 100 mg 10/19/16 10:00 10/20/16 10:57 Toprol Xl - PO 100 mg DAILY SE[facility] Administration Metoprolol Succinate 50 mg 10/19/16 22:00 10/19/16 21:32 Toprol Xl - PO 50 mg HS [facility]N Administration Pantoprazole Sodium 40 mg 10/19/16 10:00 10/20/16 10:57 Protonix - PO 40 mg DAILY [facility] Administration Prednisone 5 mg 10/19/16 07:00 10/20/16 06:14 Deltasone - PO 5 mg AM [facility] Administration Prednisone 2.5 mg 10/19/16 22:00 10/19/16 22:43 Deltasone - PO 2.5 mg HS [facility] Administration Microbiology 10/20/16 14:00 Parasite Direct Smear - Final Stool Ova and Parasite Macroscopic Exam - Final Parasite Concentrated Smear - Preliminary Parasite Permanent Smear - Preliminary Cryptosporidium Antigen - Final - Final Giardia Antigen (THERESA) - Final 10/19/16 02:00 Blood Culture - Preliminary Blood - Peripheral Venous Staphylococcus Coagulase Neg 10/18/16 19:51 Salmonella/Shigella Culture - Preliminary Stool Non Lactose Fermenting Gnb Gram Negative Estrada Yersinia Culture - Preliminary NO ENTERIC PATHOGENS, 24 HOURS, ON PRIMARY PLATES Vibrio Culture - Final Escherichia coli 0157 Culture - Final NO GROWTH OF E COLI 0157 OBTAINED 10/19/16 02:00 Blood Culture - Preliminary Blood - Peripheral Venous NO GROWTH OBTAINED AFTER 24 HOURS, INCUBATION TO CONTINUE FOR 4 DAYS. 10/19/16 15:00 Clostridium difficile Antigen (THERESA) - Final Stool Clostridium difficile Toxin Assay - Final Assessment: 60 year old male with a past medical history of Stage 4 melanoma (s/ p multiple surgical procedures including craniotomy, nephrectomy, femoral bone resection and knee replacement-all for mets) adrenal insufficiency (on chronic steroids) HTN, HLD, atrial fibrillation, COPD/Asthma, diverticulosis with GI bleed, colitis admitted with c/o nausea, vomiting, x several episodes diarrhea. Plan: 1. Gram positive staph sepsis - BC x1 bottle +, ? contaminate - Stop Vanco - Continue zosyn (day 1) Flagyl (day 2) - Discussed with ID 2. Gastroenteritis - Stool cx pre jama nlfnb, gn rods, salmonella - Continue IVF - Zosyn/Flagyl - Advance to full liquids 3. Pneumobilia - CTAP with pneumobilia and prot venous air - Due to liver abscess vs mets vs transient bowel distention from above - GI following - Will obtain Renal consult eval for CTAP with contrast given hx of nephrectomy 4. A Fib w RVR - No sinus - Dig 0.25mg daily - Toprol xl 100mg qam - Toprol xl 50mg Hs 5. Melenoma stage 4 - Prednisone 5mg qam; 2.5mg HS - PPI 6. Hypocalcemia - No acute symptoms - Start ca/vid supp 1tab BID Visit type - Emergency Visit Emergency Visit: Yes ED Registration Date: 10/19/16 Care time: The patient presented to the Emergency Department on the above date and was hospitalized for further evaluation of their emergent condition. - New Patient This patient is new to me today: Yes Date on this admission: 10/20/16 - Critical Care Critical Care patient: No
--- NOTE | 2016-10-20 14:35 | PN ---
Progress Note (short form) - Note Progress Note: diarrhea improved didnt wake up at night to use the bathroom no abdominal pain 2 stools today no blood Vital Signs Period Temp Pulse Resp BP Sys/Betancourt Pulse Ox Last 24 Hr 98.2 F-99.3 F 72-80 18-20 94-126/49-65 94-97 cor-rrr lungs clear abd soft,nt +BS ext no edema CBC, BMP 10/20/16 06:30 10/20/16 06:30 Microbiology 10/18/16 19:51 Stool Salmonella/Shigella Culture - Preliminary Non Lactose Fermenting Gnb Gram Negative Estrada 10/18/16 19:51 Stool Yersinia Culture - Preliminary NO ENTERIC PATHOGENS, 24 HOURS, ON PRIMARY PLATES 10/18/16 19:51 Stool Vibrio Culture - Final 10/18/16 19:51 Stool Escherichia coli 0157 Culture - Final NO GROWTH OF E COLI 0157 OBTAINED 10/19/16 02:00 Blood - Peripheral Venous Blood Culture - Preliminary Pending Organism 10/19/16 02:00 Blood - Peripheral Venous Blood Culture - Preliminary NO GROWTH OBTAINED AFTER 24 HOURS, INCUBATION TO CONTINUE FOR 4 DAYS. 10/19/16 15:00 Stool Clostridium difficile Antigen (THERESA) - Final 10/19/16 15:00 Stool Clostridium difficile Toxin Assay - Final a/p sepsis gastroenteritis bacteremia-gram positive pneumobilia spoke with lab coag neg staph, will d/c vancomycin f/u stool studies ?need for further imaging - will d/w GI
--- NOTE | 2016-10-20 15:50 | PN ---
GI Progress Note Subjective: No acute events No abdominal pain Diarrhea improving Blood cx + however appears it will be a contaminant Stool Cx + however unclear if this will san out to be a pathogenic organism - Objective Vital Signs: Vital Signs Temperature 97.9 F 10/20/16 14:53 Pulse Rate 70 10/20/16 14:53 Respiratory Rate 16 10/20/16 14:53 Blood Pressure 130/70 10/20/16 14:53 O2 Sat by Pulse Oximetry (%) 94 L 10/20/16 10:00 Constitutional: Calm Eyes: No: Sclera Icterus Cardiovascular: Yes: Regular Rate and Rhythm Respiratory: Yes: CTA Bilaterally Gastrointestinal Inspection: No: Distention ...Auscultate: Yes: Normoactive Bowel Sounds ...Palpate: No: Tenderness ...Percussion: No: Tympanitic Edema: No Neurological: Yes: Alert, Oriented Labs: CBC, BMP 10/20/16 06:30 10/20/16 06:30 INR, PTT INR 1.09 (0.82-1.09) 10/18/16 19:30 Hepatic Panel Total Bilirubin 0.7 mg/dL (0.2-1.0) 10/20/16 06:30 Direct Bilirubin 0.2 mg/dL (0.0-0.2) D 10/20/16 06:30 AST 48 U/L (15-37) H 10/20/16 06:30 ALT 70 U/L (12-78) 10/20/16 06:30 Alkaline Phosphatase 82 U/L (45-117) 10/20/16 06:30 Albumin 2.7 g/dl (3.4-5.0) L 10/20/16 06:30 Problem List - Problems (1) Gastroenteritis Assessment/Plan: Clinically improved. Still unclear as to the etiology of the pneumobilia or portovenous air. ? if this was secondary to a transient ischemic event or from transient bowel dilation from a gastroenteritis. I discussed the case with Dr. García. Ideally a contrast study would be helpful to further evaluate liver parenchyma and bowel. Renal will give input regarding this given that Mr. Hoang has one kidney Advanced to full liquids Code(s): K52.9 - NONINFECTIVE GASTROENTERITIS AND COLITIS, UNSPECIFIED
[2016-10-20] MEDS ORDERED: VANCOMYCIN 1 GRAM (PRE-DOCKED) 1,000 MG/250 ML BAG IVPB SCH (16:00)
[2016-10-20] MEDS: HYDROmorphone HCL CARPU-JECT 1 MG/1 ML DISP.SYRIN IVPUSH PRN (17:02)
--- NOTE | 2016-10-20 17:54 | PN ---
Progress Note, Physician History of Present Illness: Pt alert. Diarrhea and abdominal pain reduced. - Current Medication List Current Medications: Active Medications Acetaminophen (Tylenol -) 650 mg PO Q6H PRN PRN Reason: FEVER OR PAIN Last Admin: 10/20/16 05:01 Dose: 650 mg Albuterol/Ipratropium (Duoneb -) 1 amp NEB Q4H PRN PRN Reason: SHORTNESS OF BREATH Alprazolam (Xanax -) 0.5 mg PO Q8H PRN PRN Reason: ANXIETY Last Admin: 10/19/16 22:43 Dose: 0.5 mg Budesonide/Formoterol Fumarate (Symbicort 160/4.5mcg -) 1 puff IH BID [facility] Last Admin: 10/20/16 10:55 Dose: 1 puff Calcium Carbonate/Cholecalciferol (Os-Odell 500+D -) 1 tab PO BID [facility] Last Admin: 10/20/16 10:56 Dose: 1 tab Digoxin (Lanoxin -) 0.25 mg PO DAILY [facility] Last Admin: 10/20/16 10:56 Dose: 0.25 mg Ferrous Sulfate (Feosol -) 325 mg PO BID [facility] Last Admin: 10/20/16 10:57 Dose: 325 mg Gabapentin (Neurontin -) 600 mg PO TID [facility] Last Admin: 10/20/16 15:00 Dose: 600 mg Hydromorphone HCl (Dilaudid Injection -) 1 mg IVPUSH Q4H PRN PRN Reason: PAIN Last Admin: 10/20/16 17:02 Dose: 1 mg Metronidazole (Flagyl 500mg Premixed Ivpb -) 100 mls @ 100 mls/hr IVPB Q8H-IV [facility] Last Admin: 10/20/16 10:48 Dose: 100 mls/hr Sodium Chloride (Normal Saline -) 1,000 mls @ 100 mls/hr IV ASDIR [facility] Last Admin: 10/20/16 10:47 Dose: 100 mls/hr Piperacillin Sod/Tazobactam (Sod 4.5 gm/ Dextrose) 100 mls @ 200 mls/hr IVPB Q8H-IV [facility] Last Admin: 10/20/16 11:57 Dose: 200 mls/hr Metoprolol Succinate (Toprol Xl -) 100 mg PO DAILY [facility] Last Admin: 10/20/16 10:57 Dose: 100 mg Metoprolol Succinate (Toprol Xl -) 50 mg PO HS [facility] Last Admin: 10/19/16 21:32 Dose: 50 mg Pantoprazole Sodium (Protonix -) 40 mg PO DAILY [facility] Last Admin: 10/20/16 10:57 Dose: 40 mg Prednisone (Deltasone -) 5 mg PO AM [facility] Last Admin: 10/20/16 06:14 Dose: 5 mg Prednisone (Deltasone -) 2.5 mg PO HS [facility] Last Admin: 10/19/16 22:43 Dose: 2.5 mg - Objective Vital Signs: Vital Signs Temperature 97.9 F 10/20/16 14:53 Pulse Rate 70 10/20/16 14:53 Respiratory Rate 16 10/20/16 14:53 Blood Pressure 130/70 10/20/16 14:53 O2 Sat by Pulse Oximetry (%) 94 L 10/20/16 10:00 Constitutional: Yes: No Distress Eyes: No: Sclera Icterus HENT: Yes: Atraumatic, Normocephalic Neck: Yes: Supple, Trachea Midline Cardiovascular: Yes: Regular Rate and Rhythm. No: JVD Respiratory: Yes: CTA Bilaterally Gastrointestinal: Yes: Soft. No: Tenderness Neurological: Yes: Alert, Oriented Labs: CBC, BMP 10/20/16 06:30 10/20/16 06:30 INR, PTT INR 1.09 (0.82-1.09) 10/18/16 19:30 Problem List - Problems (1) Sepsis Code(s): A41.9 - SEPSIS, UNSPECIFIED ORGANISM (2) COPD (chronic obstructive pulmonary disease) Code(s): J44.9 - CHRONIC OBSTRUCTIVE PULMONARY DISEASE, UNSPECIFIED Assessment/Plan 61 year old male who developed diarrhea and air in the portal vein. -r/o Sepsis, r/o C.Difficile colitis -COPD-pt on systemic steroids because of adrenal insufficiency. Respiratory status is stable at present -PAF-ventricular rate OK -Metastatic Melanoma-off chemotx since 04/24: being monitored by oncology at [facility]-no recurrence at last evaluation. Abdominal pain and diasrrhea improved unclear if positive blood culture is a contaminant. Vital signs and respiratory status stable. Suggest Antibiotics per ID Gi to decide re further imaging Symbicort Albuterol PRN O2 PRN to maintain > SaO2
[2016-10-20] MEDS ORDERED: diphenhydrAMINE HCL 25 MG CAPSULE (FP) PO PRN (20:31)
[2016-10-20] MEDS: METOPROLOL SUCCINATE 50 MG TAB.SR.24H (FP) PO SCH (21:17)
[2016-10-21] MEDS ORDERED: PT OWN MED DRAWER 7, Y5N ONE ×3 (01:03→22:10)
[2016-10-21] MEDS: METRONIDAZOLE 500 MG PREMIXED 100 ML IVPB SCH ×3 (01:05→17:40)
[2016-10-21] MEDS: SODIUM CHLORIDE 1,000 ML IV SCH ×4 (01:06→17:40)
[2016-10-21] MEDS: PIPERACILLIN/TAZOB 4.5 GM 4.5 GM in DEXTROSE 5%-WATER - 100 ML IVPB SCH ×2 (02:17→11:30)
[2016-10-21] MEDS: GABAPENTIN 300 MG CAPSULE (FP) PO SCH ×3 (05:59→22:15)
[2016-10-21] MEDS: predniSONE 5 MG TABLET (UD) PO SCH ×2 (06:00→22:13)
[2016-10-21 07:40] LABS: BASOPHIL 0.6 % (0-2.0); EOSINOPHIL 12.2 % (0-4.5); MCH 34.1 pg (25.7-33.7); MCHC 34.8 g/dl (32.0-35.9); MEAN CELL VOLUME 97.8 fl (80-96); MEAN PLT VOLUME 7.4 fl (7.5-11.1); NEUTROPHILS 53.6 % (42.8-82.8); PLATELET COUNT 151 K/MM3 (134-434); RDW 13.7 % (11.9-15.9); WHITE BLOOD COUNT 3.6 K/mm3 (4.0-10.0)
[2016-10-21 07:59] LABS: ALBUMIN 2.7 g/dl (3.4-5.0); ALK PHOS 71 U/L (45-117); ANION GAP 8 (8-16); BILIRUBIN,TOTAL 0.5 mg/dL (0.2-1.0); CALCIUM 7.3 mg/dL (8.5-10.1); CO2 24 mmol/L (21-32); COCKROFT - GAULT 105.92; CREATININE 0.9 mg/dL (0.7-1.3); GLUCOSE,RANDOM 131 mg/dL (74-106); SGOT/AST 25 U/L (15-37); SGPT/ALT 51 U/L (12-78); TOT PROT 5.1 g/dl (6.4-8.2)
--- NOTE | 2016-10-21 09:23 | PN ---
Progress Note, Physician History of Present Illness: seen and examined today in nad. no overnight events. feeling better. diarrhea improving. - Current Medication List Current Medications: Active Medications Acetaminophen (Tylenol -) 650 mg PO Q6H PRN PRN Reason: FEVER OR PAIN Last Admin: 10/20/16 05:01 Dose: 650 mg Albuterol/Ipratropium (Duoneb -) 1 amp NEB Q4H PRN PRN Reason: SHORTNESS OF BREATH Alprazolam (Xanax -) 0.5 mg PO Q8H PRN PRN Reason: ANXIETY Last Admin: 10/19/16 22:43 Dose: 0.5 mg Budesonide/Formoterol Fumarate (Symbicort 160/4.5mcg -) 1 puff IH BID [facility] Last Admin: 10/20/16 21:17 Dose: 1 puff Calcium Carbonate/Cholecalciferol (Os-Odell 500+D -) 1 tab PO BID [facility] Last Admin: 10/20/16 21:17 Dose: 1 tab Digoxin (Lanoxin -) 0.25 mg PO DAILY [facility] Last Admin: 10/20/16 10:56 Dose: 0.25 mg Diphenhydramine HCl (Benadryl -) 25 mg PO Q6H PRN Last Admin: 10/20/16 20:35 Dose: 25 mg Ferrous Sulfate (Feosol -) 325 mg PO BID [facility] Last Admin: 10/20/16 21:17 Dose: 325 mg Gabapentin (Neurontin -) 600 mg PO TID [facility] Last Admin: 10/21/16 05:59 Dose: 600 mg Hydromorphone HCl (Dilaudid Injection -) 1 mg IVPUSH Q4H PRN PRN Reason: PAIN Last Admin: 10/20/16 17:02 Dose: 1 mg Metronidazole (Flagyl 500mg Premixed Ivpb -) 100 mls @ 100 mls/hr IVPB Q8H-IV [facility] Last Admin: 10/21/16 01:05 Dose: 100 mls/hr Sodium Chloride (Normal Saline -) 1,000 mls @ 100 mls/hr IV ASDIR [facility] Last Admin: 10/21/16 01:06 Dose: 100 mls/hr Piperacillin Sod/Tazobactam (Sod 4.5 gm/ Dextrose) 100 mls @ 200 mls/hr IVPB Q8H-IV [facility] Last Admin: 10/21/16 02:17 Dose: 200 mls/hr Metoprolol Succinate (Toprol Xl -) 100 mg PO DAILY [facility] Last Admin: 10/20/16 10:57 Dose: 100 mg Metoprolol Succinate (Toprol Xl -) 50 mg PO HS [facility] Last Admin: 10/20/16 21:17 Dose: 50 mg Pantoprazole Sodium (Protonix -) 40 mg PO DAILY [facility] Last Admin: 10/20/16 10:57 Dose: 40 mg Prednisone (Deltasone -) 5 mg PO AM [facility] Last Admin: 10/21/16 06:00 Dose: 5 mg Prednisone (Deltasone -) 2.5 mg PO HS [facility] Last Admin: 10/20/16 21:17 Dose: 2.5 mg - Objective Vital Signs: Vital Signs Temperature 97.7 F 10/21/16 06:00 Pulse Rate 62 10/21/16 06:00 Respiratory Rate 20 10/21/16 06:00 Blood Pressure 97/56 10/21/16 06:00 O2 Sat by Pulse Oximetry (%) 94 L 10/20/16 21:00 Constitutional: Yes: Well Nourished, No Distress, Calm Eyes: Yes: WNL, Conjunctiva Clear, EOM Intact, PERRL HENT: Yes: WNL, Atraumatic, Normocephalic Neck: Yes: WNL, Supple, Trachea Midline Cardiovascular: Yes: WNL, Regular Rate and Rhythm, S1, S2. No: Bradycardia, Tachycardia, Pulse Irregular, Bruit, JVD, Gallop, Murmur, Rub, S3, S4, Varicosities Respiratory: Yes: WNL, Regular, CTA Bilaterally. No: Rales, Rhonchi, Wheezes Gastrointestinal: Yes: WNL, Normal Bowel Sounds, Soft. No: Distention, Tenderness Extremities: Yes: WNL Edema: No Peripheral Pulses WNL: Yes Peripheral Pulses: Left Doralis Pedis: 2+, Right Dorsalis Pedis: 2+ Integumentary: Yes: WNL Neurological: Yes: WNL, Alert, Oriented, Cran Nerves II-XII Intact ...Motor Strength: WNL Psychiatric: Yes: WNL, Alert, Oriented Labs: CBC, BMP 10/21/16 06:00 10/21/16 06:00 INR, PTT INR 1.09 (0.82-1.09) 10/18/16 19:30 - ....Imaging Chest X-ray: Report Reviewed, Image Reviewed EKG: Report Reviewed, Image Reviewed Other: Report Reviewed, Image Reviewed (tele-no longer on tele) Assessment/Plan IMP: Metastatic melanoma Probable/suspected gastroenteritis vs colitis PAF with RVR in setting gastroenteritis and dehydration REC: Remains in NSR after hydration and improvement in diarrhea, no longer on tele Cont Toprol and Digoxin GI work up in progress
[2016-10-21] MEDS: CALCIUM 500MG/VIT-D 200 UNITS COMBO TABLET (FP) PO SCH ×2 (09:52→22:13)
[2016-10-21] MEDS: PANTOPRAZOLE 40 MG TABLET (FP) PO SCH (09:57)
[2016-10-21] MEDS: FERROUS SO4 325 MG TABLET (FP) PO SCH ×2 (09:57→22:14)
[2016-10-21] MEDS: BUDESONIDE/FORMETEROL FUMARATE 160/4.5 mcg INHALER IH SCH ×2 (11:31→22:12)
[2016-10-21] MEDS: DIGOXIN 0.25 MG TABLET (FP) PO SCH (11:31)
[2016-10-21] MEDS: METOPROLOL SUCCINATE 100 MG TAB.SR.24H (FP) PO SCH (11:31)
--- NOTE | 2016-10-21 13:37 | CONSULT ---
Consult - text type - Consultation Consultation Note: Renal Consult for Contrast Nephropathy Prophylaxis This is a 60 year old Gentleman with PMhx of stage 4 Melenoma s/p multple suergies including a nephrectomy, Adrenal Insufficiency, HTN, HLD, Afib, COPD/ Asthma, GI bleed who presented with N/V/D and found to have bactermia/Sepsis with supected GI source planned for Contrast study of the Abd. PMhx: As above Allergies: NKDA Family Hx: NC Social Hx: No T/A/D ROS: No chest pain, sob, abd pain, fever, chills, N/V/D at the present time. Home meds: Home Medications Medication Instructions Recorded Budesonide/Formoterol Fumarate 1 ih IH BID 11/08/11 [Symbicort 160-4.5 Mcg Inhaler] Metformin HCl [Metformin HCl ER] 500 mg PO BID 12/09/15 Metoprolol Succinate [Toprol XL -] 50 mg PO HS 12/09/15 Albuterol Sulfate Inhaler - 1 - 2 inh PO Q4H PRN 04/09/16 [Ventolin HFA Inhaler -] Ascorbic Acid [Vitamin C -] 100 mg PO DAILY 04/09/16 Ferrous Sulfate [Feosol] 325 mg PO BID 04/09/16 Gabapentin [Neurontin] 600 mg PO TID 04/09/16 Metoprolol Succinate [Toprol XL -] 100 mg PO AM 04/09/16 Alprazolam [Xanax] 0.5 mg PO Q8H PRN #42 tablet MDD 04/12/16 1.5 Digoxin [Lanoxin -] 0.25 mg PO DAILY #30 tablet 04/12/16 Pantoprazole Sodium [Protonix -] 40 mg PO DAILY 10/18/16 Prednisone 5 mg PO AM 10/18/16 Prednisone [Deltasone -] 2.5 mg PO HS 10/18/16 Repaglinide [Prandin -] 2 mg PO DAILY 10/18/16 Vital Signs Temperature 97.7 F 10/21/16 06:00 Pulse Rate 60 10/21/16 11:31 Respiratory Rate 20 10/21/16 06:00 Blood Pressure 97/56 10/21/16 06:00 O2 Sat by Pulse Oximetry (%) 94 L 10/20/16 21:00 Gen: NAD HEENT: NC/AT, MMM, No JVD CVS: RRR, No M/R Lungs: CTA, no rales or wheeze Abd: soft NT/ND Ext: No edema, clubbing or cyanosis : No bladder distension CBC, BMP 10/21/16 06:00 10/21/16 06:00 Current Medications Acetaminophen (Tylenol -) 650 mg PO Q6H PRN PRN Reason: FEVER OR PAIN Last Admin: 10/20/16 05:01 Dose: 650 mg Albuterol/Ipratropium (Duoneb -) 1 amp NEB Q4H PRN PRN Reason: SHORTNESS OF BREATH Alprazolam (Xanax -) 0.5 mg PO Q8H PRN PRN Reason: ANXIETY Last Admin: 10/19/16 22:43 Dose: 0.5 mg Budesonide/Formoterol Fumarate (Symbicort 160/4.5mcg -) 1 puff IH BID [facility] Last Admin: 10/21/16 11:31 Dose: 1 puff Calcium Carbonate/Cholecalciferol (Os-Odell 500+D -) 1 tab PO BID [facility] Last Admin: 10/21/16 09:52 Dose: 1 tab Digoxin (Lanoxin -) 0.25 mg PO DAILY [facility] Last Admin: 10/21/16 11:31 Dose: 0.25 mg Diphenhydramine HCl (Benadryl -) 25 mg PO Q6H PRN Last Admin: 10/20/16 20:35 Dose: 25 mg Ferrous Sulfate (Feosol -) 325 mg PO BID [facility] Last Admin: 10/21/16 09:57 Dose: 325 mg Gabapentin (Neurontin -) 600 mg PO TID [facility] Last Admin: 10/21/16 05:59 Dose: 600 mg Hydromorphone HCl (Dilaudid Injection -) 1 mg IVPUSH Q4H PRN PRN Reason: PAIN Last Admin: 10/20/16 17:02 Dose: 1 mg Metronidazole (Flagyl 500mg Premixed Ivpb -) 100 mls @ 100 mls/hr IVPB Q8H-IV [facility] Last Admin: 10/21/16 09:55 Dose: 100 mls/hr Sodium Chloride (Normal Saline -) 1,000 mls @ 100 mls/hr IV ASDIR [facility] Last Admin: 10/21/16 01:06 Dose: 100 mls/hr Piperacillin Sod/Tazobactam (Sod 4.5 gm/ Dextrose) 100 mls @ 200 mls/hr IVPB Q8H-IV [facility] Last Admin: 10/21/16 11:30 Dose: 200 mls/hr Metoprolol Succinate (Toprol Xl -) 100 mg PO DAILY [facility] Last Admin: 10/21/16 11:31 Dose: 100 mg Metoprolol Succinate (Toprol Xl -) 50 mg PO HS [facility] Last Admin: 10/20/16 21:17 Dose: 50 mg Pantoprazole Sodium (Protonix -) 40 mg PO DAILY [facility] Last Admin: 10/21/16 09:57 Dose: 40 mg Prednisone (Deltasone -) 5 mg PO AM [facility] Last Admin: 10/21/16 06:00 Dose: 5 mg Prednisone (Deltasone -) 2.5 mg PO HS [facility] Last Admin: 10/20/16 21:17 Dose: 2.5 mg A/P 60 year old Gentleman with PMhx of stage 4 Melenoma s/p multple suergies including a nephrectomy, Adrenal Insufficiency, HTN, HLD, Afib, COPD/Asthma, GI bleed who presented with N/V/D and found to have bactermia/Sepsis with supected GI source planned for Contrast study of the Abd. #Contrast Nephropathy Risk Stratification/Prophylaxis Risk of ABHIJIT as calculated by ABHIJIT risk calculator developed by [employer] and published in the Journal of the [employer] is as follows: Risk of ABHIJIT (> 25% in Cr) is 7.5 to 14% (higher in presense of hypotension) and risk of needing [employer] is 0.04 to 0.12% BP is low (MAP ~69) Suggest IVF Bolous to increase pressure continue isotonic saline before and after procedure Mucomyst 1200mg BID today Trend BUN/Cr after avoid NSAIDs The above stated risks were discussed with the Pt and and they both expressed understanding Thank you Will monitor renal function Lonnie Worley DO
[2016-10-21] MEDS ORDERED: SODIUM CHLORIDE 500 ML IV STA (14:39)
--- NOTE | 2016-10-21 14:55 | PN ---
Progress Note (short form) - Note Progress Note: diarrhea improved no abdominal pain 2 stools today no blood Vital Signs Period Temp Pulse Resp BP Sys/Betancourt Pulse Ox Last 24 Hr 97.4 F-98.2 F 60-68 18-20 97-116/46-71 94 cor-rrr lungs clear abd soft,nt ext no edema CBC, BMP 10/21/16 06:00 10/21/16 06:00 Microbiology 10/18/16 19:51 Stool Salmonella/Shigella Culture - Final Escherichia Coli 10/18/16 19:51 Stool Campylobacter Culture - Final NO GROWTH OF CAMPYLOBACTER SPECIES OBTAINED 10/18/16 19:51 Stool Yersinia Culture - Final NO GROWTH OF YERSINIA SPECIES OBTAINED 10/18/16 19:51 Stool Vibrio Culture - Final 10/18/16 19:51 Stool Escherichia coli 0157 Culture - Final NO GROWTH OF E COLI 0157 OBTAINED 10/19/16 02:00 Blood - Peripheral Venous Blood Culture - Preliminary Staphylococcus Coagulase Neg 10/20/16 05:00 Stool Norovirus GI - Preliminary 10/20/16 05:00 Stool Norovirus GII - Preliminary 10/19/16 02:00 Blood - Peripheral Venous Blood Culture - Preliminary NO GROWTH OBTAINED AFTER 48 HOURS, INCUBATION TO CONTINUE FOR 3 DAYS. 10/20/16 14:00 Stool Parasite Direct Smear - Final 10/20/16 14:00 Stool Ova and Parasite Macroscopic Exam - Final 10/20/16 14:00 Stool Parasite Concentrated Smear - Preliminary 10/20/16 14:00 Stool Parasite Permanent Smear - Preliminary 10/20/16 14:00 Stool Cryptosporidium Antigen - Final 10/20/16 14:00 Stool - Final 10/20/16 14:00 Stool Giardia Antigen (THERESA) - Final 10/19/16 15:00 Stool Clostridium difficile Antigen (THERESA) - Final 10/19/16 15:00 Stool Clostridium difficile Toxin Assay - Final a/p sepsis gastroenteritis blood culture contaminant pneumobilia switch to rocephin/flagyl d/w GI- will get MRI abdomen- no contrast today d/w patient and
[2016-10-21] MEDS ORDERED: ACETYLCYSTEINE 20% 200MG/ML 30 ML VIAL *FOR ORAL / INH USE ONLY PO SCH (15:00)
--- NOTE | 2016-10-21 15:26 | PN ---
Physical Exam: SUBJECTIVE: Patient seen and examined, he says he feels much better today. His stool is light green now and its mildly odorous. Events: hypoensive: give 500cc bolus, keep MAP >70 OBJECTIVE: Vital Signs Period Temp Pulse Resp BP Sys/Betancourt Pulse Ox Last 24 Hr 97.4 F-98.2 F 58-68 18-20 97-123/46-72 94 PE Neuro: alert, awake, cn 2-12intact Pulm: CTAB CV: s1 s2 rrr no mrg Abd: s nt nd +bs Ext: warm no le edema Laboratory Results - last 24 hr 10/20/16 10/21/16 10/21/16 06:30 06:00 06:00 WBC 3.6 L RBC 3.70 L Hgb 12.6 Hct 36.2 MCV 97.8 H MCHC 34.8 RDW 13.7 Plt Count 151 MPV 7.4 L Neutrophils % 53.6 D Lymphocytes % 24.6 D Monocytes % 9.0 Eosinophils % 12.2 H Basophils % 0.6 Sodium 146 H Potassium 3.4 L Chloride 114 H Carbon Dioxide 24 Anion Gap 8 BUN 4 L D Creatinine 0.9 Creat Clearance w eGFR > 60 Random Glucose 131 H Calcium 7.3 L Total Bilirubin 0.5 D AST 25 D ALT 51 D Alkaline Phosphatase 71 Total Protein 5.1 L Albumin 2.7 L Tumor Marker AFP 1.3 Active Medications Generic Name Dose Route Start Last Admin Trade Name Freq PRN Reason Stop Dose Admin Acetaminophen 650 mg 10/19/16 20:51 10/20/16 05:01 Tylenol - PO 650 mg Q6H PRN Administration FEVER OR PAIN Acetylcysteine 1,200 mg 10/21/16 15:00 Mucomyst 20 Oral / Inh Use Only* PO 10/22/16 03:01 Q12H SEBASTIÁN Albuterol/Ipratropium 1 amp 10/19/16 04:41 Duoneb - NEB Q4H PRN SHORTNESS OF BREATH Alprazolam 0.5 mg 10/19/16 04:38 10/19/16 22:43 Xanax - PO 0.5 mg Q8H PRN Administration ANXIETY Budesonide/Formoterol Fumarate 1 puff 10/19/16 10:00 10/21/16 11:31 Symbicort 160/4.5mcg - IH 1 puff BID SEBASTI[facility]N Administration Calcium Carbonate/Cholecalciferol 1 tab 10/20/16 10:00 10/21/16 09:52 Os-Odell 500+D - PO 1 tab BID SEBAST[facility]N Administration Digoxin 0.25 mg 10/19/16 10:00 10/21/16 11:31 Lanoxin - PO 0.25 mg DAILY SE[facility]ST[facility]N Administration Diphenhydramine HCl 25 mg 10/20/16 20:31 10/20/16 20:35 Benadryl - PO 25 mg Q6H PRN Administration Ferrous Sulfate 325 mg 10/19/16 10:00 10/21/16 09:57 Feosol - PO 325 mg BID [facility] Administration Gabapentin 600 mg 10/19/16 06:00 10/21/16 13:54 Neurontin - PO 600 mg TID SE[facility]STI[facility]N Administration Hydromorphone HCl 1 mg 10/19/16 04:35 10/20/16 17:02 Dilaudid Injection - IVPUSH 1 mg Q4H PRN Administration PAIN Metronidazole 100 mls @ 100 mls/hr 10/19/16 12:30 10/21/16 09:55 Flagyl 500mg Premixed Ivpb - IVPB 100 mls/hr Q8H-IV [facility] Administration Sodium Chloride 1,000 mls @ 100 mls/hr 10/19/16 17:30 10/21/16 10:00 Normal Saline - IV 100 mls/hr ASDIR SEBASTI[facility]N Administration Sodium Chloride 500 mls @ 500 mls/hr 10/21/16 14:39 Normal Saline - IV 10/21/16 15:38 ASDIR STA Ceftriaxone Sodium 100 mls @ 200 mls/hr 10/21/16 15:00 Rocephin 2gm Ivpb (Pre-Docked) IVPB DAILY [facility] Metoprolol Succinate 100 mg 10/19/16 10:00 10/21/16 11:31 Toprol Xl - PO 100 mg DAILY [facility] Administration Metoprolol Succinate 50 mg 10/19/16 22:00 10/20/16 21:17 Toprol Xl - PO 50 mg HS SE[facility]ST[facility]N Administration Pantoprazole Sodium 40 mg 10/19/16 10:00 10/21/16 09:57 Protonix - PO 40 mg DAILY [facility] Administration Prednisone 5 mg 10/19/16 07:00 10/21/16 06:00 Deltasone - PO 5 mg AM [facility]N Administration Prednisone 2.5 mg 10/19/16 22:00 10/20/16 21:17 Deltasone - PO 2.5 mg HS SE[facility]STI[facility]N Administration Microbiology: 10/18/16 19:51 Stool Salmonella/Shigella Culture - Final 10/18/16 19:51 Stool Escherichia coli 0157 Culture - Final Escherichia Coli NO GROWTH OF CAMPYLOBACTER SPECIES OBTAINED NO GROWTH OF YERSINIA SPECIES OBTAINED NO GROWTH OF E COLI 0157 OBTAINED Imaging: - CTAP with pneumobilia and prot venous air Assessment: 60 year old male with a past medical history of Stage 4 melanoma (s/ p multiple surgical procedures including craniotomy, nephrectomy, femoral bone resection and knee replacement-all for mets) adrenal insufficiency (on chronic steroids) HTN, HLD, atrial fibrillation, COPD/Asthma, diverticulosis with GI bleed, colitis admitted with c/o nausea, vomiting, x several episodes diarrhea. Plan: 1. Gastroenteritis - Stool cx with Ecoli - Stop zosyn - Start ceftriaxone, continue flagyl - Continue IVF 2. Pneumobilia - Abdominal MRI w/o contrast today eval liver densities - If unhelpful move to CTAP w/ contrast, prep with mucomyst and monitor for hypotension, refer to nephrology note, consult appreciated - Diff dx: abscess vs mets vs transient bowel distention from above 3. Gram positive staph sepsis - Blood cx contaminate - Zosyn discontinued 4. A Fib w RVR - No sinus - Dig 0.25mg daily - Toprol xl 100mg qam - Toprol xl 50mg Hs 5. Melenoma stage 4 - Prednisone 5mg qam; 2.5mg HS - PPI 6. Hypocalcemia - Improved - Continue ca/vid supp 1 tab BID Visit type - Emergency Visit Emergency Visit: Yes ED Registration Date: 10/19/16 Care time: The patient presented to the Emergency Department on the above date and was hospitalized for further evaluation of their emergent condition. - New Patient This patient is new to me today: No - Critical Care Critical Care patient: No
[2016-10-21] MEDS: CEFTRIAXONE 100 ML IVPB SCH (15:27)
--- NOTE | 2016-10-21 16:42 | PN ---
Progress Note, Physician History of Present Illness: Pt alert. Diarrhea and abdominal pain reduced. - Current Medication List Current Medications: Active Medications Acetaminophen (Tylenol -) 650 mg PO Q6H PRN PRN Reason: FEVER OR PAIN Last Admin: 10/20/16 05:01 Dose: 650 mg Acetylcysteine (Mucomyst 20 Oral / Inh Use Only*) 1,200 mg PO Q12H [facility] Stop: 10/22/16 03:01 Last Admin: 10/21/16 15:22 Dose: Not Given Albuterol/Ipratropium (Duoneb -) 1 amp NEB Q4H PRN PRN Reason: SHORTNESS OF BREATH Alprazolam (Xanax -) 0.5 mg PO Q8H PRN PRN Reason: ANXIETY Last Admin: 10/19/16 22:43 Dose: 0.5 mg Budesonide/Formoterol Fumarate (Symbicort 160/4.5mcg -) 1 puff IH BID [facility] Last Admin: 10/21/16 11:31 Dose: 1 puff Calcium Carbonate/Cholecalciferol (Os-Odell 500+D -) 1 tab PO BID [facility] Last Admin: 10/21/16 09:52 Dose: 1 tab Digoxin (Lanoxin -) 0.25 mg PO DAILY [facility] Last Admin: 10/21/16 11:31 Dose: 0.25 mg Diphenhydramine HCl (Benadryl -) 25 mg PO Q6H PRN Last Admin: 10/20/16 20:35 Dose: 25 mg Ferrous Sulfate (Feosol -) 325 mg PO BID [facility] Last Admin: 10/21/16 09:57 Dose: 325 mg Gabapentin (Neurontin -) 600 mg PO TID [facility] Last Admin: 10/21/16 13:54 Dose: 600 mg Hydromorphone HCl (Dilaudid Injection -) 1 mg IVPUSH Q4H PRN PRN Reason: PAIN Last Admin: 10/20/16 17:02 Dose: 1 mg Metronidazole (Flagyl 500mg Premixed Ivpb -) 100 mls @ 100 mls/hr IVPB Q8H-IV [facility] Last Admin: 10/21/16 09:55 Dose: 100 mls/hr Sodium Chloride (Normal Saline -) 1,000 mls @ 100 mls/hr IV ASDIR [facility] Last Admin: 10/21/16 10:00 Dose: 100 mls/hr Ceftriaxone Sodium (Rocephin 2gm Ivpb (Pre-Docked)) 100 mls @ 200 mls/hr IVPB DAILY [facility] Last Admin: 10/21/16 15:27 Dose: 200 mls/hr Metoprolol Succinate (Toprol Xl -) 100 mg PO DAILY [facility] Last Admin: 10/21/16 11:31 Dose: 100 mg Metoprolol Succinate (Toprol Xl -) 50 mg PO HS [facility] Last Admin: 10/20/16 21:17 Dose: 50 mg Pantoprazole Sodium (Protonix -) 40 mg PO DAILY [facility] Last Admin: 10/21/16 09:57 Dose: 40 mg Prednisone (Deltasone -) 5 mg PO AM [facility] Last Admin: 10/21/16 06:00 Dose: 5 mg Prednisone (Deltasone -) 2.5 mg PO HS [facility] Last Admin: 10/20/16 21:17 Dose: 2.5 mg - Objective Vital Signs: Vital Signs Temperature 97.9 F 10/21/16 14:00 Pulse Rate 58 L 10/21/16 14:00 Respiratory Rate 20 10/21/16 14:00 Blood Pressure 123/72 10/21/16 14:00 O2 Sat by Pulse Oximetry (%) 94 L 10/20/16 21:00 Constitutional: Yes: No Distress, Calm Eyes: No: Sclera Icterus HENT: Yes: Atraumatic, Normocephalic Neck: Yes: Supple Cardiovascular: Yes: Regular Rate and Rhythm. No: JVD Respiratory: Yes: CTA Bilaterally Gastrointestinal: Yes: Soft, Hyperactive Bowel Sounds Edema: No Neurological: Yes: Alert, Oriented Labs: CBC, BMP 10/21/16 06:00 10/21/16 06:00 INR, PTT INR 1.09 (0.82-1.09) 10/18/16 19:30 Problem List - Problems (1) Sepsis Code(s): A41.9 - SEPSIS, UNSPECIFIED ORGANISM (2) COPD (chronic obstructive pulmonary disease) Code(s): J44.9 - CHRONIC OBSTRUCTIVE PULMONARY DISEASE, UNSPECIFIED Assessment/Plan 61 year old male who developed diarrhea and air in the portal vein. -r/o Sepsis, r/o C.Difficile colitis -COPD-pt on systemic steroids because of adrenal insufficiency. Respiratory status is stable at present -PAF-ventricular rate OK -Metastatic Melanoma-off chemotx since 04/24: being monitored by oncology at [facility]-no recurrence at last evaluation. Abdominal pain and diarrhea improved. Plan: MRI abdomen pending Antibiotics per ID Albuterol PRN O2 PRN to maintain > SaO2
--- NOTE | 2016-10-21 16:57 | PN ---
GI Progress Note Subjective: GI: Diarrhea subsiding . NO pain. Stool for C diff, Salmonella, Shigella and Campoylobacter is negative. Growing E coli but not 0157. Hungry. - Objective Vital Signs: Vital Signs Temperature 97.9 F 10/21/16 14:00 Pulse Rate 58 L 10/21/16 14:00 Respiratory Rate 20 10/21/16 14:00 Blood Pressure 123/72 10/21/16 14:00 O2 Sat by Pulse Oximetry (%) 94 L 10/20/16 21:00 Constitutional: No Distress ...Auscultate: Yes: Normoactive Bowel Sounds ...Palpate: Yes: Soft, Other (nontender) Labs: CBC, BMP 10/21/16 06:00 10/21/16 06:00 INR, PTT INR 1.09 (0.82-1.09) 10/18/16 19:30 Assessment/Plan Resolving infectious colitis. Await MRCP to assess status of portal venous and biliary gas. Will leave further investigation of liver masses to PET scan that will be done by his melanoma team. Will advance to lactose free diet.
[2016-10-21] MEDS: METOPROLOL SUCCINATE 50 MG TAB.SR.24H (FP) PO SCH (22:15)
[2016-10-22] MEDS: SODIUM CHLORIDE 1,000 ML IV SCH (01:12)
[2016-10-22] MEDS: METRONIDAZOLE 500 MG PREMIXED 100 ML IVPB SCH ×2 (01:12→09:34)
[2016-10-22] MEDS: predniSONE 5 MG TABLET (UD) PO SCH (06:58)
[2016-10-22] MEDS: GABAPENTIN 300 MG CAPSULE (FP) PO SCH ×2 (06:59→13:56)
[2016-10-22 07:56] LABS: ANION GAP 8 (8-16); CALCIUM 8.1 mg/dL (8.5-10.1); CO2 29 mmol/L (21-32); COCKROFT - GAULT 105.92; CREATININE 0.9 mg/dL (0.7-1.3); GLUCOSE,RANDOM 133 mg/dL (74-106); SGOT/AST 16 U/L (15-37); SGPT/ALT 46 U/L (12-78)
[2016-10-22 07:58] LABS: ALK PHOS 76 U/L (45-117); BILIRUBIN,TOTAL 0.5 mg/dL (0.2-1.0); TOT PROT 5.7 g/dl (6.4-8.2)
[2016-10-22] MEDS: DIGOXIN 0.25 MG TABLET (FP) PO SCH (09:34)
[2016-10-22] MEDS: PANTOPRAZOLE 40 MG TABLET (FP) PO SCH (09:34)
[2016-10-22] MEDS: METOPROLOL SUCCINATE 100 MG TAB.SR.24H (FP) PO SCH (09:34)
[2016-10-22] MEDS: CALCIUM 500MG/VIT-D 200 UNITS COMBO TABLET (FP) PO SCH (09:34)
[2016-10-22] MEDS: FERROUS SO4 325 MG TABLET (FP) PO SCH (09:34)
[2016-10-22] MEDS: CEFTRIAXONE 100 ML IVPB SCH (09:34)
[2016-10-22] MEDS: BUDESONIDE/FORMETEROL FUMARATE 160/4.5 mcg INHALER IH SCH ×2 (09:45→10:05)
[2016-10-22] MEDS ORDERED: PT OWN MED DRAWER 7, Y5N ONE (10:42)
--- NOTE | 2016-10-22 10:50 | PN ---
Progress Note, Physician Chief Complaint: ID Resting comfortably Diarrhea much improved Ceftriaxone and metronidazole - Current Medication List Current Medications: Active Medications Acetaminophen (Tylenol -) 650 mg PO Q6H PRN PRN Reason: FEVER OR PAIN Last Admin: 10/20/16 05:01 Dose: 650 mg Albuterol/Ipratropium (Duoneb -) 1 amp NEB Q4H PRN PRN Reason: SHORTNESS OF BREATH Alprazolam (Xanax -) 0.5 mg PO Q8H PRN PRN Reason: ANXIETY Last Admin: 10/19/16 22:43 Dose: 0.5 mg Budesonide/Formoterol Fumarate (Symbicort 160/4.5mcg -) 1 puff IH BID [facility] Last Admin: 10/22/16 10:05 Dose: 1 puff Calcium Carbonate/Cholecalciferol (Os-Odell 500+D -) 1 tab PO BID [facility] Last Admin: 10/22/16 09:34 Dose: 1 tab Digoxin (Lanoxin -) 0.25 mg PO DAILY [facility] Last Admin: 10/22/16 09:34 Dose: 0.25 mg Diphenhydramine HCl (Benadryl -) 25 mg PO Q6H PRN Last Admin: 10/20/16 20:35 Dose: 25 mg Ferrous Sulfate (Feosol -) 325 mg PO BID [facility] Last Admin: 10/22/16 09:34 Dose: 325 mg Gabapentin (Neurontin -) 600 mg PO TID [facility] Last Admin: 10/22/16 06:59 Dose: 600 mg Metronidazole (Flagyl 500mg Premixed Ivpb -) 100 mls @ 100 mls/hr IVPB Q8H-IV [facility] Last Admin: 10/22/16 09:34 Dose: 100 mls/hr Ceftriaxone Sodium (Rocephin 2gm Ivpb (Pre-Docked)) 100 mls @ 200 mls/hr IVPB DAILY [facility] Last Admin: 10/22/16 09:34 Dose: 200 mls/hr Sodium Chloride (Normal Saline -) 1,000 mls @ 75 mls/hr IV ASDIR [facility] Last Admin: 10/22/16 01:12 Dose: 75 mls/hr Metoprolol Succinate (Toprol Xl -) 100 mg PO DAILY [facility] Last Admin: 10/22/16 09:34 Dose: 100 mg Metoprolol Succinate (Toprol Xl -) 50 mg PO HS [facility] Last Admin: 10/21/16 22:15 Dose: Not Given Pantoprazole Sodium (Protonix -) 40 mg PO DAILY [facility] Last Admin: 10/22/16 09:34 Dose: 40 mg Prednisone (Deltasone -) 5 mg PO AM [facility] Last Admin: 10/22/16 06:58 Dose: 5 mg Prednisone (Deltasone -) 2.5 mg PO HS [facility] Last Admin: 10/21/16 22:13 Dose: 2.5 mg - Objective Vital Signs: Vital Signs Temperature 98.3 F 10/22/16 06:00 Pulse Rate 71 10/22/16 09:34 Respiratory Rate 16 10/22/16 06:00 Blood Pressure 104/57 10/22/16 06:00 O2 Sat by Pulse Oximetry (%) 96 10/21/16 21:00 Constitutional: Yes: Well Nourished, No Distress Neck: Yes: WNL, Supple Cardiovascular: Yes: S1, S2 Respiratory: Yes: WNL, Regular, CTA Bilaterally Gastrointestinal: Yes: WNL, Normal Bowel Sounds, Soft. No: Tenderness, Tenderness, Epigastrium Edema: No Labs: CBC, BMP 10/21/16 06:00 10/22/16 06:20 INR, PTT INR 1.09 (0.82-1.09) 10/18/16 19:30 Assessment/Plan Microbiology 10/19/16 02:00 Blood - Peripheral Venous Blood Culture - Final Staphylococcus Epidermidis 10/18/16 19:51 Stool Salmonella/Shigella Culture - Final 10/18/16 19:51 Stool Escherichia coli 0157 Culture - Final Escherichia Coli NO GROWTH OF CAMPYLOBACTER SPECIES OBTAINED NO GROWTH OF YERSINIA SPECIES OBTAINED NO GROWTH OF E COLI 0157 OBTAINED 10/19/16 02:00 Blood - Peripheral Venous Blood Culture - Preliminary Gram Positive Cocci Laboratory Tests 10/21/16 10/22/16 06:00 06:20 WBC 3.6 L Hgb 12.6 Plt Count 151 BUN 4 L Creatinine 0.9 Assessment Suspect gastroenteritis resolving Unsure what to make of air on CT scan but the MRI shows no acute pathology Blood cultures a contaminant Plan IF GI agrees could consider switching to oral antibiotic with a quinolone and metronidazole for few more days Primitivo MORRIS
--- NOTE | 2016-10-22 11:25 | PN ---
Progress Note, Physician History of Present Illness: seen and examined today in nad. no overnight events. no new complaints. tolerating food. wants to go home. - Current Medication List Current Medications: Active Medications Acetaminophen (Tylenol -) 650 mg PO Q6H PRN PRN Reason: FEVER OR PAIN Last Admin: 10/20/16 05:01 Dose: 650 mg Albuterol/Ipratropium (Duoneb -) 1 amp NEB Q4H PRN PRN Reason: SHORTNESS OF BREATH Alprazolam (Xanax -) 0.5 mg PO Q8H PRN PRN Reason: ANXIETY Last Admin: 10/19/16 22:43 Dose: 0.5 mg Budesonide/Formoterol Fumarate (Symbicort 160/4.5mcg -) 1 puff IH BID [facility] Last Admin: 10/22/16 10:05 Dose: 1 puff Calcium Carbonate/Cholecalciferol (Os-Odell 500+D -) 1 tab PO BID [facility] Last Admin: 10/22/16 09:34 Dose: 1 tab Digoxin (Lanoxin -) 0.25 mg PO DAILY [facility] Last Admin: 10/22/16 09:34 Dose: 0.25 mg Diphenhydramine HCl (Benadryl -) 25 mg PO Q6H PRN Last Admin: 10/20/16 20:35 Dose: 25 mg Ferrous Sulfate (Feosol -) 325 mg PO BID [facility] Last Admin: 10/22/16 09:34 Dose: 325 mg Gabapentin (Neurontin -) 600 mg PO TID [facility] Last Admin: 10/22/16 06:59 Dose: 600 mg Metronidazole (Flagyl 500mg Premixed Ivpb -) 100 mls @ 100 mls/hr IVPB Q8H-IV [facility] Last Admin: 10/22/16 09:34 Dose: 100 mls/hr Ceftriaxone Sodium (Rocephin 2gm Ivpb (Pre-Docked)) 100 mls @ 200 mls/hr IVPB DAILY [facility] Last Admin: 10/22/16 09:34 Dose: 200 mls/hr Sodium Chloride (Normal Saline -) 1,000 mls @ 75 mls/hr IV ASDIR [facility] Last Admin: 10/22/16 01:12 Dose: 75 mls/hr Metoprolol Succinate (Toprol Xl -) 100 mg PO DAILY [facility] Last Admin: 10/22/16 09:34 Dose: 100 mg Metoprolol Succinate (Toprol Xl -) 50 mg PO HS [facility] Last Admin: 10/21/16 22:15 Dose: Not Given Pantoprazole Sodium (Protonix -) 40 mg PO DAILY [facility] Last Admin: 10/22/16 09:34 Dose: 40 mg Prednisone (Deltasone -) 5 mg PO AM [facility] Last Admin: 10/22/16 06:58 Dose: 5 mg Prednisone (Deltasone -) 2.5 mg PO HS [facility] Last Admin: 10/21/16 22:13 Dose: 2.5 mg - Objective Vital Signs: Vital Signs Temperature 98.3 F 10/22/16 06:00 Pulse Rate 71 10/22/16 09:34 Respiratory Rate 16 10/22/16 06:00 Blood Pressure 104/57 10/22/16 06:00 O2 Sat by Pulse Oximetry (%) 96 10/21/16 21:00 Constitutional: Yes: Well Nourished, No Distress, Calm Eyes: Yes: WNL, Conjunctiva Clear, EOM Intact, PERRL HENT: Yes: WNL, Atraumatic, Normocephalic Neck: Yes: WNL, Supple, Trachea Midline Cardiovascular: Yes: Regular Rate and Rhythm, S1, S2. No: Bradycardia, Tachycardia, Pulse Irregular, Bruit, JVD, Gallop, Murmur, Rub, S3, S4, Varicosities Respiratory: Yes: WNL, Regular, CTA Bilaterally. No: Rales, Rhonchi, Wheezes Gastrointestinal: Yes: WNL, Normal Bowel Sounds, Soft. No: Distention, Tenderness Musculoskeletal: Yes: WNL Extremities: Yes: WNL Edema: No Peripheral Pulses WNL: Yes Peripheral Pulses: Left Doralis Pedis: 2+, Right Dorsalis Pedis: 2+ Integumentary: Yes: WNL Neurological: Yes: WNL, Alert, Oriented, Cran Nerves II-XII Intact ...Motor Strength: WNL Psychiatric: Yes: WNL, Alert, Oriented Labs: CBC, BMP 10/21/16 06:00 10/22/16 06:20 INR, PTT INR 1.09 (0.82-1.09) 10/18/16 19:30 - ....Imaging Chest X-ray: Report Reviewed, Image Reviewed EKG: Report Reviewed, Image Reviewed Other: Report Reviewed, Image Reviewed Assessment/Plan IMP: Metastatic melanoma Probable/suspected gastroenteritis vs colitis PAF with RVR in setting gastroenteritis and dehydration REC: Remains in NSR after hydration and improvement in diarrhea, no longer on tele Cont Toprol and Digoxin No additional inpatient cardiac work up needed, ok for discharge from a cardiac standpoint Receiving abx for presumed gastroenteritis
--- NOTE | 2016-10-22 12:49 | PN ---
GI Progress Note Subjective: No abdominal pain No fevers/chills Improved diarrhea and tolerating PO Abdominal MRI unrevealing - Objective Vital Signs: Vital Signs Temperature 97.8 F 10/22/16 10:00 Pulse Rate 71 10/22/16 10:00 Respiratory Rate 18 10/22/16 10:00 Blood Pressure 130/77 10/22/16 10:00 O2 Sat by Pulse Oximetry (%) 96 10/22/16 09:00 Constitutional: Calm Eyes: No: Sclera Icterus Cardiovascular: Yes: Regular Rate and Rhythm Respiratory: Yes: CTA Bilaterally Gastrointestinal Inspection: No: Distention ...Auscultate: Yes: Normoactive Bowel Sounds ...Palpate: No: Tenderness Edema: No Neurological: Yes: Alert, Oriented Labs: CBC, BMP 10/21/16 06:00 10/22/16 06:20 INR, PTT INR 1.09 (0.82-1.09) 10/18/16 19:30 Problem List - Problems (1) Gastroenteritis Assessment/Plan: Clinically much improved and tolerating PO. MRI unrevealing. Agree with ID to change to PO abx. OK for D/C Home from GI standpoint D/C Protonix Code(s): K52.9 - NONINFECTIVE GASTROENTERITIS AND COLITIS, UNSPECIFIED
[2016-10-22 16:00] VITALS: BP 129/52; PULSE 51; TEMP 98
--- NOTE | 2016-11-04 19:43 | DS ---
Physical Exam: SUBJECTIVE: Patient seen and examined OBJECTIVE: PHYSICAL EXAM GENERAL: The patient is awake, alert, and fully oriented, in no acute distress. HEAD: Normal with no signs of trauma. EYES: PERRL, extraocular movements intact, sclera anicteric, conjunctiva clear. ENT: Ears normal, nares patent, oropharynx clear without exudates, moist mucous membranes. NECK: Trachea midline, full range of motion, supple. LUNGS: Breath sounds equal, clear to auscultation bilaterally, no wheezes, no crackles, no accessory muscle use. HEART: Regular rate and rhythm, S1, S2 without murmur, rub or gallop. ABDOMEN: Soft, nontender, nondistended, normoactive bowel sounds, no guarding, no rebound, no hepatosplenomegaly, no masses. EXTREMITIES: 2+ pulses, warm, well-perfused, no edema. NEUROLOGICAL: Cranial nerves II through XII grossly intact. Normal speech, gait not observed. PSYCH: Normal mood, normal affect. SKIN: Warm, dry, normal turgor, no rashes or lesions noted. LABS CBCD WBC 3.6 K/mm3 (4.0-10.0) L 10/21/16 06:00 RBC 3.70 M/mm3 (4.00-5.60) L 10/21/16 06:00 Hgb 12.6 GM/dL (11.7-16.9) 10/21/16 06:00 Hct 36.2 % (35.4-49) 10/21/16 06:00 MCV 97.8 fl (80-96) H 10/21/16 06:00 MCHC 34.8 g/dl (32.0-35.9) 10/21/16 06:00 RDW 13.7 % (11.9-15.9) 10/21/16 06:00 Plt Count 151 K/MM3 (134-434) 10/21/16 06:00 MPV 7.4 fl (7.5-11.1) L 10/21/16 06:00 CMP Sodium 147 mmol/L (136-145) H 10/22/16 06:20 Potassium 3.7 mmol/L (3.5-5.1) 10/22/16 06:20 Chloride 110 mmol/L (98-107) H 10/22/16 06:20 Carbon Dioxide 29 mmol/L (21-32) D 10/22/16 06:20 Anion Gap 8 (8-16) 10/22/16 06:20 BUN 4 mg/dL (7-18) L 10/22/16 06:20 Creatinine 0.9 mg/dL (0.7-1.3) 10/22/16 06:20 Creat Clearance w eGFR > 60 (>60) 10/22/16 06:20 Calcium 8.1 mg/dL (8.5-10.1) L 10/22/16 06:20 Total Bilirubin 0.5 mg/dL (0.2-1.0) 10/22/16 06:20 AST 16 U/L (15-37) D 10/22/16 06:20 ALT 46 U/L (12-78) 10/22/16 06:20 Alkaline Phosphatase 76 U/L (45-117) 10/22/16 06:20 Total Protein 5.7 g/dl (6.4-8.2) L 10/22/16 06:20 Albumin 3.0 g/dl (3.4-5.0) L 10/22/16 06:20 Microbiology 10/22/16 07:00 Stool Parasite Direct Smear - Final 10/22/16 07:00 Stool Ova and Parasite Macroscopic Exam - Final 10/22/16 07:00 Stool Parasite Concentrated Smear - Final 10/22/16 07:00 Stool Parasite Permanent Smear - Final 10/22/16 07:00 Stool Cryptosporidium Antigen - Final 10/22/16 07:00 Stool - Final 10/22/16 07:00 Stool Giardia Antigen (THERESA) - Final 10/21/16 11:00 Stool Parasite Direct Smear - Final 10/21/16 11:00 Stool Ova and Parasite Macroscopic Exam - Final 10/21/16 11:00 Stool Parasite Concentrated Smear - Final 10/21/16 11:00 Stool Parasite Permanent Smear - Final 10/21/16 11:00 Stool Cryptosporidium Antigen - Final 10/21/16 11:00 Stool - Final 10/21/16 11:00 Stool Giardia Antigen (THERESA) - Final 10/20/16 14:00 Stool Parasite Direct Smear - Final 10/20/16 14:00 Stool Ova and Parasite Macroscopic Exam - Final 10/20/16 14:00 Stool Parasite Concentrated Smear - Final 10/20/16 14:00 Stool Parasite Permanent Smear - Final 10/20/16 14:00 Stool Cryptosporidium Antigen - Final 10/20/16 14:00 Stool - Final 10/20/16 14:00 Stool Giardia Antigen (THERESA) - Final 10/20/16 05:00 Stool Norovirus GI - Final 10/20/16 05:00 Stool Norovirus GII - Final 10/19/16 02:00 Blood - Peripheral Venous Blood Culture - Final Staphylococcus Epidermidis 10/20/16 11:48 Colon Fluid Gram Stain - Final 10/19/16 02:00 Blood - Peripheral Venous Blood Culture - Final Staphylococcus Epidermidis 10/18/16 19:51 Stool Salmonella/Shigella Culture - Final Escherichia Coli 10/18/16 19:51 Stool Campylobacter Culture - Final NO GROWTH OF CAMPYLOBACTER SPECIES OBTAINED 10/18/16 19:51 Stool Yersinia Culture - Final NO GROWTH OF YERSINIA SPECIES OBTAINED 10/18/16 19:51 Stool Vibrio Culture - Final 10/18/16 19:51 Stool Escherichia coli 0157 Culture - Final NO GROWTH OF E COLI 0157 OBTAINED 10/19/16 15:00 Stool Clostridium difficile Antigen (THERESA) - Final 10/19/16 15:00 Stool Clostridium difficile Toxin Assay - Final HOSPITAL COURSE: Date of Admission:10/19/16 Date of Discharge: 11/04/16 60 year old male with a past medical history of Stage 4 melanoma (s/p multiple surgical procedures including craniotomy, nephrectomy, femoral bone resection and knee replacement-all for mets) adrenal insufficiency (on chronic steroids) HTN, HLD, atrial fibrillation, COPD/Asthma, diverticulosis with GI bleed, colitis admitted with c/o nausea, vomiting, x several episodes diarrhea. Gastroenteritis - Stool cx with Ecoli - treated with vanco x 1; zosyn x 3 days; ceftriaxone x 2 days; metronidazole x 3 days; discharged with prescriptions to continue cipro x 4 days and metronidazole x 4 days Minutes to complete discharge: 35 Discharge Summary Reason For Visit: GASTROENTERITIS DEHYDRATION Current Active Problems Dehydration (Acute) Gastroenteritis (Acute) Sepsis (Acute) Condition: Fair - Instructions Diet, Activity, Other Instructions: Two prescriptions for antibiotics have been sent to your pharmacy. Take this medication as directed. Return to the emergency department for any new or worsening symptoms. Referrals: Rodrigo Andrade MD [Primary Care Provider] - Disposition: HOME - Home Medications Comprehensive Discharge Medication List: Ambulatory Orders Budesonide/Formoterol Fumarate [Symbicort 160-4.5 Mcg Inhaler] 1 ih IH BID 11/07 Metformin HCl [Metformin HCl ER] 500 mg PO BID 12/09/15 Metoprolol Succinate [Toprol XL -] 50 mg PO HS 12/09/15 Albuterol Sulfate Inhaler - [Ventolin HFA Inhaler -] 1 - 2 inh PO Q4H PRN Ascorbic Acid [Vitamin C -] 100 mg PO DAILY 04/09/16 Ferrous Sulfate [Feosol] 325 mg PO BID 04/09/16 Gabapentin [Neurontin] 600 mg PO TID 04/09/16 Metoprolol Succinate [Toprol XL -] 100 mg PO AM 04/09/16 Alprazolam [Xanax] 0.5 mg PO Q8H PRN #42 tablet MDD 1.5 04/12/16 Digoxin [Lanoxin -] 0.25 mg PO DAILY #30 tablet 04/12/16 Pantoprazole Sodium [Protonix -] 40 mg PO DAILY 10/18/16 Prednisone 5 mg PO AM 10/18/16 Prednisone [Deltasone -] 2.5 mg PO HS 10/18/16 Repaglinide [Prandin -] 2 mg PO DAILY 10/18/16 Ciprofloxacin HCl [Cipro] 500 mg PO BID #8 tablet 10/22/16 Metronidazole [Flagyl -] 500 mg PO TID #12 tablet 10/22/16 This patient is new to me today: Yes Date on this admission: 11/04/16 Emergency Visit: Yes ED Registration Date: 10/19/16 Care time: The patient presented to the Emergency Department on the above date and was hospitalized for further evaluation of their emergent condition. Critical Care patient: No - Discharge Referral Referred to [facility] Med [facility].C.: No
== END 2016-10-22 16:47 | disposition home or self-care (01) | DRG 641 ==
LOC: JER 18:50 → JERBED 10-19 03:03 → UNDOADMOB 10-19 03:20 → J4S 10-19 16:00 → OBSVTOIN 10-19 22:26
PROVIDERS: ADMIT Internal Medicine; ATTEND Nurse Practitioner Acute Care
DX: E86.0 Dehydration (principal); E27.40 Unspecified adrenocortical insufficiency; K52.9 Noninfective gastroenteritis and colitis, unspecified; E86.1 Hypovolemia; J44.9 Chronic obstructive pulmonary disease, unspecified; I48.91 Unspecified atrial fibrillation; Z87.891 Personal history of nicotine dependence; I10 Essential (primary) hypertension; E78.5 Hyperlipidemia, unspecified; J45.909 Unspecified asthma, uncomplicated; E83.39 Other disorders of phosphorus metabolism; E11.9 Type 2 diabetes mellitus without complications; Z79.84 Long term (current) use of oral hypoglycemic drugs; I48.0 Paroxysmal atrial fibrillation; E83.51 Hypocalcemia; Z85.820 Personal history of malignant melanoma of skin
CPT/HCPCS: 36415; 71010-TC; 74176-TC; 74181-TC; 76705-TC; 80048; 80053; 80076; 80162; 81003; 81015; 82105; 82150; 82550; 82977; 83605; 83690; 83735; 83880; 84100; 84484; 85025; 85610; 85730; 86140; 87040; 87045; 87046; 87177; 87186; 87205; 87207; 87209; 87324; 87328; 87329; 87449; 87798; 93005; 93010; 99285-25; G0378

== ENCOUNTER 2018-02-15 16:17 | Emergency (ER) | payer OTHER, BC ==
--- NOTE | 2018-02-15 16:27 | PDOC ---
History of Present Illness <Snehal Ramsey - Last Filed: 02/15/18 21:28> - General History Source: Patient, Family Exam Limitations: No Limitations - History of Present Illness Initial Comments: 02/15/18 19:49 The patient is a 62 year old male, accompanied by , with a significant PMH of COPD, Afib, Stage 4 melanoma metastatic, hypertension, hyperlipidemia, who presents to the emergency department with 2 days of progressively worsening left lower extremity weakness and left upper extremity weakness. The patient states he was at PT yesterday around 4 pm and noticed he was leaning more towards the left side and dragging his LLE. The patient states he has baseline left lower extremity weakness but reports the left leg feels more weak than his baseline. He denies any recent injuries or trauma. As per , she states the patient appears to be more fatigued and flat in the past few days than his baseline behavior. The patient reports he had a craniotomy on 01/22/18 at [facility] by Dr. Bales. The patient denies chest pain, shortness of breath, headache and dizziness. Denies fever, chills, nausea, vomit, diarrhea and constipation. Denies dysuria, frequency, urgency and hematuria. Allergies: codeine and morphine Surgical Hx: Nephrectomy (left), Craniotomy at [facility] on 01/22/18 Social history: No reported Neurosurgeon: Dr. Bales [phone] Oncologist: Dr. Glover [phone], <Herman Dai - Last Filed: 02/15/18 21:48> - General Stated Complaint: WEAKNESS Time Seen by Provider: 02/15/18 16:27 Past History - Past Medical History Anemia: Yes Asthma: Yes Cancer: Yes (MELANOMA stage 4) Cardiac Disorders: Yes (AFIB,) CVA: No COPD: Yes CHF: No Dementia: No Diabetes: Yes GI Disorders: Yes (diverticulitis/colitis) Disorders: No HTN: No Hypercholesterolemia: No Liver Disease: No Seizures: Yes (CLEARED MASS IN FRONTAL LOBE) Thyroid Disease: (adrenal insufficiency) - Surgical History Abdominal Surgery: Yes (HOLLY INGUINAL HERNIA REPAIR X2) Appendectomy: No Cardiac Surgery: No (CARDIAC CATH 07/2008 CLEAR) Cholecystectomy: Yes Lung Surgery: No Neurologic Surgery: Yes (CRANIOTOMY 11/18) Orthopedic Surgery: Yes (left femoral dissection and total knee replacement) - Immunization History Td Vaccination: No TDAP Vaccination: No Immunization Up to Date: No - Suicide/Smoking/Psychosocial Hx Smoking Status: No Smoking History: Former smoker Have you smoked in the past 12 months: No Number of Cigarettes Smoked Daily: 0 If you are a former smoker, when did you quit?: 17yrs ago 'Breaking Loose' booklet given: 04/22/16 Hx Alcohol Use: Yes (occasional) Drug/Substance Use Hx: No Substance Use Type: None Hx Substance Use Treatment: No <Snehal Ramsey - Last Filed: 02/15/18 21:28> <Herman Dai - Last Filed: 02/15/18 21:48> - Past Medical History Allergies/Adverse Reactions: Allergies Allergy/AdvReac Type Severity Reaction Status Date / Time codeine [Codeine] AdvReac Severe abd pain Verified 02/15/18 16:52 morphine AdvReac Severe Verified 02/15/18 16:52 Home Medications: Ambulatory Orders Budesonide/Formoterol Fumarate [Symbicort 160-4.5 Mcg Inhaler] 1 ih IH BID 11/07 Metformin HCl [Metformin HCl ER] 500 mg PO BID 12/09/15 Metoprolol Succinate [Toprol XL -] 50 mg PO HS 12/09/15 Ascorbic Acid [Vitamin C -] 100 mg PO DAILY 04/09/16 Ferrous Sulfate [Feosol] 325 mg PO BID 04/09/16 Gabapentin [Neurontin] 600 mg PO TID 04/09/16 Metoprolol Succinate [Toprol XL -] 100 mg PO AM 04/09/16 Digoxin [Lanoxin -] 0.25 mg PO DAILY #30 tablet 04/12/16 Pantoprazole Sodium [Protonix -] 40 mg PO DAILY 10/18/16 Prednisone 5 mg PO AM 10/18/16 Repaglinide [Prandin -] 1 mg PO DAILY 10/18/16 predniSONE [Deltasone -] 2.5 mg PO HS 10/18/16 Levalbuterol Tartrate [Xopenex Hfa] 15 gm IH PRN 02/15/18 Review of Systems - Review of Systems Comments:: 02/15/18 19:50 GENERAL/CONSTITUTIONAL: +Fatigue. No fever or chills. HEAD, EYES, EARS, NOSE AND THROAT: No change in vision. No ear pain or discharge. No sore throat. CARDIOVASCULAR: No chest pain or shortness of breath. RESPIRATORY: No cough, wheezing, or hemoptysis. GASTROINTESTINAL: No nausea, vomiting, diarrhea or constipation. GENITOURINARY: No dysuria, frequency, or change in urination. MUSCULOSKELETAL: No joint or muscle swelling or pain. No neck or back pain. SKIN: No rash NEUROLOGIC: +Left upper extremity weakness. +Left lower extremity weakness. No headache, vertigo, loss of consciousness. ENDOCRINE: No increased thirst. No abnormal weight change. HEMATOLOGIC/LYMPHATIC: No anemia, easy bleeding, or history of blood clots. ALLERGIC/IMMUNOLOGIC: No hives or skin allergy. <Herman Dai - Last Filed: 02/15/18 21:48> *Physical Exam - Vital Signs Last Vital Signs Temp Pulse Resp BP Pulse Ox 99.5 F 81 18 140/80 98 02/15/18 16:52 02/15/18 16:52 02/15/18 16:52 02/15/18 16:52 02/15/18 16:52 - Physical Exam Comments: 02/15/18 19:50 GENERAL: Awake, alert, and fully oriented, in no acute distress HEAD: No signs of trauma EYES: PERRLA, EOMI, sclera anicteric, conjunctiva clear ENT: Auricles normal inspection, hearing grossly normal, nares patent, oropharynx clear without exudates. Moist mucosa NECK: Normal ROM, supple, no lymphadenopathy, JVD, or masses LUNGS: Breath sounds equal, clear to auscultation bilaterally. No wheezes, and no crackles HEART: Regular rate and rhythm, normal S1 and S2, no murmurs, rubs or gallops ABDOMEN: +Mild suprapubic tenderness to palpation. Soft, normoactive bowel sounds. No guarding, no rebound. No masses EXTREMITIES: +Limited ROM of the left lower extremity. No edema. No clubbing or cyanosis. No cords, erythema, or tenderness NEUROLOGICAL: +Weakness of the shoulder girdle. +Weakness of the left upper extremity 4/5. +Weakness of the left lower extremity 3/5. +Some movement of the left lower extremity noted against gravity. Cranial nerves II through XII grossly intact. Normal speech. Neurovascular intact. Sensation intact throughout. SKIN: Warm, Dry, normal turgor, no rashes or lesions noted. <Herman Dai - Last Filed: 02/15/18 21:48> Heart Score/ECG Review - ECG Intrepretation Comment:: 02/15/18 18:59 sinus at 80, nl axis, nl interval, mild st depressions v4-6 <Snehal Ramsey - Last Filed: 02/15/18 21:28> ED Treatment Course - LABORATORY CBC & Chemistry Diagram: 02/15/18 18:30 02/15/18 18:30 <Snehal Ramsey - Last Filed: 02/15/18 21:28> - LABORATORY CBC & Chemistry Diagram: 02/15/18 18:30 02/15/18 18:30 - ADDITIONAL ORDERS Additional order review: Laboratory Results 02/15/18 02/15/18 02/15/18 18:30 18:30 18:30 PT with INR 12.00 INR 1.06 PTT (Actin FS) 30.3 Sodium 142 Potassium 3.8 Chloride 100 Carbon Dioxide 31 Anion Gap 11 BUN 12 Creatinine 0.9 Creat Clearance w eGFR > 60 Random Glucose 125 H Calcium 9.0 Magnesium 2.0 Total Bilirubin 0.5 AST 12 L D ALT 39 Alkaline Phosphatase 102 Creatine Kinase 30 L Troponin I < 0.02 Total Protein 6.7 Albumin 3.3 L Urine Color Ltyellow Urine Appearance Clear Urine pH 5.0 Ur Specific [place] 1.020 Urine Protein Negative Urine Glucose (UA) 3+ H Urine Ketones Negative Urine Blood Negative Urine Nitrite Negative Urine Bilirubin Negative Urine Urobilinogen Negative Ur Leukocyte Esterase Negative 02/15/18 18:30 RBC 4.16 MCV 96.0 MCHC 34.9 RDW 14.4 MPV 7.3 L Neutrophils % 71.4 D Lymphocytes % 16.0 D Monocytes % 8.7 Eosinophils % 2.9 Basophils % 1.0 - RADIOLOGY Radiograph Interpretation: 02/15/18 21:48 EXAM#: TYPE/EXAM: RESULT: [id number] CT/HEAD CT WITHOUT CONTRAST HISTORY PROVIDED: Headache TECHNIQUE: Sequential axial images were obtained from the base of the skull to the vertex. The patient is S/P right frontal craniotomy. There is a ventricular shunt extending through the surgical site into the frontal horn of the right lateral ventricle. There is a large amount of intracranial air at the craniotomy site, as well as vasogenic edema right frontal and parietal lobes. The edema is exerting mild mass effect and a slight midline shift. Clinical correlation as to the nature of the prior procedures is recommended. A follow-up MRI may also be warranted. There is no evidence of acute intracranial hemorrhage, mass lesions or infarctions. IMPRESSION: S/P right frontal craniotomy. There is intracranial air at the craniotomy site , as well as extensive vasogenic edema that is exerting mild mass effect and a slight midline shift. Clinical correlation and follow-up MRI recommended. Please see above discussion. Reported By: Julian Coe MD - Medications Given in the ED: ED Medications Discontinued Medications Generic Name Dose Route Start Last Admin Trade Name Freq PRN Reason Stop Dose Admin Acetaminophen 1,000 mg 02/15/18 18:59 02/15/18 19:13 Ofirmev Injection - IVPB 02/15/18 19:00 1,000 mg ONCE ONE Administration <Herman Dai - Last Filed: 02/15/18 21:48> Medical Decision Making - Medical Decision Making 02/15/18 18:56 a/p: 62yo male with melanoma to the brain s/p crani at [facility] -had tube placed for drainage of a fluid collection in the brain Neurosx is at [facility] weakness to L arm and increasing weakness L leg over last 2 days walks with a walker hx of chronic L leg weakness from prior crani for mass removal in the past -new L arm and increasing L leg weakness -also with low grade temp today -will send labs, ua -mild suprapubic ttp -will obtain xray, ekg, head ct -tylenol iv for pain -will monitor and reassess -discussed poss transfer to the patients neurosx pending ct findings - s/p crani x 3 weeks with new neuro deficits x 2 days 02/15/18 20:24 pt with air and vasogenic edema on head ct call placed to neurosx at [facility] family updated 02/15/18 21:[address] Bales - pts neurosx from [facility] slightly increased air to the crani site Dr. Bales accepts pt in transfer back to [facility] to the neurosx floor requests 1g Keppra IV be started <Snehal Ramsey - Last Filed: 02/15/18 21:28> - Medical Decision Making 02/15/18 21:10 Call placed to neurosurgeon Dr. Bales at 8:20 pm. Call returned at 8:35 pm. Case discussed. <Herman Dai - Last Filed: 02/15/18 21:48> *DC/Admit/Observation/Transfer - Transfer to Acute Care Facility Receiving Facility: [facility] Accepting Physician:: Dr. Yana Bales - Attestations Physician Attestion: 02/15/18 21:30 I, Dr. Snehal Ramsey DO, attest that this document has been prepared under my direction and personally reviewed by me in its entirety. I further attest, that it accurately reflects all work, treatment, procedures and medical decision -making performed by me. <Snehal Ramsey - Last Filed: 02/15/18 21:28> - Attestations Scribe Attestion: 02/15/18 19:54 Documentation prepared by Herman Dai, acting as durable medical equipment repairer for Snehal Ramsey DO. <Herman Dai - Last Filed: 02/15/18 21:48> Diagnosis at time of Disposition: Left-sided weakness, Pneumocephalus, Vasogenic brain edema - Discharge Dispostion Disposition: TRANSFER ACUTE CARE/OTHER HOSP Condition at time of disposition: Guarded - Referrals Referrals: Rodrigo Andrade MD [Primary Care Provider] - - Patient Instructions - Post Discharge Activity
[2018-02-15 16:55] VITALS: BMI 28.3
[2018-02-15] MEDS ORDERED: ACETAMINOPHEN INJECTION 100 ML IVPB ONE (18:51)
[2018-02-15] MEDS ORDERED: ACETAMINOPHEN 1000 MG/100 ML VIAL (NON FORMULARY) IVPB ONE (18:59)
[2018-02-15 19:07] LABS: PLATELET COUNT 341 K/MM3 (134-434); RDW 14.4 % (11.9-15.9)
[2018-02-15 19:09] LABS: EOS % 2.9 % (0-4.5); HEMATOCRIT 39.9 % (35.4-49); HEMOGLOBIN 13.9 GM/dL (11.7-16.9); MCH 33.5 pg (25.7-33.7); MCHC 34.9 g/dl (32.0-35.9); MEAN PLT VOLUME 7.3 fl (7.5-11.1); MONO % 8.7 % (3.8-10.2); NEUT % 71.4 % (42.8-82.8); RBC 4.16 M/mm3 (4.00-5.60); WHITE BLOOD COUNT 9.1 K/mm3 (4.0-10.0)
[2018-02-15 19:19] LABS: INR 1.06 (0.83-1.09)
[2018-02-15 19:22] LABS: ACTIVATED PTT 30.3 SECONDS (25.2-36.5)
[2018-02-15 19:32] LABS: URINE APPEARANCE CLEAR; URINE BILIRUBIN NEGATIVE (<2.0 mg/dL); URINE COLOR LTYELLOW; URINE GLUCOSE (UA) 3+ (NEGATIVE); URINE KETONE NEGATIVE (NEGATIVE); URINE LEUK ESTERASE NEGATIVE (NEGATIVE); URINE NITRITE NEGATIVE (NEGATIVE); URINE PROTEIN NEGATIVE (NEGATIVE); URINE UROBILINOGEN NEGATIVE mg/dL (0.2-1.0)
[2018-02-15 19:38] LABS: ALBUMIN 3.3 g/dl (3.4-5.0); ANION GAP 11 (8-16); BILIRUBIN,TOTAL 0.5 mg/dL (0.2-1.0); BLOOD UREA NITROGEN 12 mg/dL (7-18); CHLORIDE 100 mmol/L (98-107); CO2 31 mmol/L (21-32); CREATININE 0.9 mg/dL (0.7-1.3); GLUCOSE,RANDOM 125 mg/dL (74-106); POTASSIUM 3.8 mmol/L (3.5-5.1); SGOT/AST 12 U/L (15-37); SGPT/ALT 39 U/L (12-78); SODIUM 142 mmol/L (136-145); TOT PROT 6.7 g/dl (6.4-8.2)
[2018-02-15 19:40] LABS: ALK PHOS 102 U/L (45-117)
[2018-02-15] MEDS ORDERED: METOCLOPRAMIDE HCL INJECTION 10 MG/2 ML VIAL IVPUSH ONE (20:23)
[2018-02-15] MEDS ORDERED: METOCLOPRAMIDE HCL INJECTION 10 MG/2 ML VIAL ONE (20:31)
[2018-02-15] MEDS ORDERED: levETIRAcetam 500 MG/5 ML INJECTION VIAL IVPB ONE ×2 (20:53→21:31)
[2018-02-15 21:25] LABS: PLATELET ESTIMATE ADEQUATE
[2018-02-15 23:29] VITALS: BP 114/84; PULSE 76
[2018-02-15 23:31] VITALS: TEMP 99
--- NOTE | 2018-02-17 09:08 | EKG ---
Test Reason : Blood Pressure : / mmHG Vent. Rate : 080 BPM Atrial Rate : 080 BPM P-R Int : 156 ms QRS Dur : 092 ms QT Int : 354 ms P-R-T Axes : 030 063 043 degrees QTc Int : 408 ms NORMAL SINUS RHYTHM NONSPECIFIC ST AND T WAVE ABNORMALITY ABNORMAL ECG WHEN COMPARED WITH ECG OF 19-OCT-2016 11:41, ABERRANT CONDUCTION IS NO LONGER PRESENT NONSPECIFIC T WAVE ABNORMALITY, IMPROVED IN INFERIOR LEADS NONSPECIFIC T WAVE ABNORMALITY NO LONGER EVIDENT IN LATERAL LEADS Confirmed by SHERIDAN CLEMENT MD ([id number]) on 02/17/2018 9:08:24 AM Referred By: Confirmed By:SHERIDAN CLEMENT MD
== END 2018-02-15 23:42 | disposition short-term general hospital (02) ==
LOC: JER 16:17
PROC: 3E033NZ Introduction of Analgesics, Hypnotics, Sedatives into Peripheral Vein, Percutaneous Approach (ICD-10-PCS; principal; 2018-02-15)
PROC: 3E033GC Introduction of Other Therapeutic Substance into Peripheral Vein, Percutaneous Approach (ICD-10-PCS; 2018-02-15)
DX: G93.89 Other specified disorders of brain (principal); G93.6 Cerebral edema; M62.81 Muscle weakness (generalized); I48.91 Unspecified atrial fibrillation; C71.9 Malignant neoplasm of brain, unspecified; J44.9 Chronic obstructive pulmonary disease, unspecified; J45.909 Unspecified asthma, uncomplicated; I10 Essential (primary) hypertension; E78.5 Hyperlipidemia, unspecified; D64.9 Anemia, unspecified; E11.9 Type 2 diabetes mellitus without complications; Z87.891 Personal history of nicotine dependence; Z88.5 Allergy status to narcotic agent; Z79.84 Long term (current) use of oral hypoglycemic drugs
CPT/HCPCS: 36415; 70450-TC; 71045-TC-FY; 80053; 81003; 82550; 83735; 84484; 85025; 85610; 85730; 86850; 86900; 86901; 93005; 93010; 99285-25; J0131

== ENCOUNTER 2018-03-27 13:37 | Inpatient (IN) | payer OTHER, BC ==
--- NOTE | 2018-03-27 14:18 | CON.CARD ---
Consult Consult Specialty:: cardiology Reason for Consultation:: AF; diastolic CHF - History of Present Illness Chief Complaint: Prt A&oXE; feels weak. Pt's is at bedside, and says he developed the weak feeling "all of a sudden", uncharaceristically refusing to do physical rehabilitation today. History of Present Illness: 62 yr old white man with PMHx melanoma, s/p craniotomy 12/2017, thoracic vetebral surgery 01/2018, AF, HTN, DM, now admitted with fever and weakness. Pt had been undergoing physical therapy at home, but felt too weak to continue. 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: Seizure (related to cerebral melanoma) Cardio/Vascular: Yes: AFIB, HTN Pulmonary: Yes: Asthma, COPD Gastrointestinal: Yes: Other (Colitis) Renal/: Yes: Other (L Nephrectomy) Musculoskeletal: Yes: Chronic low back pain Endocrine: Yes: Other (AI) Dermatology: Yes: Melanoma - Past Surgical History Past Surgical History: Yes: Cholecystectomy - Alcohol/Substance Use Hx Alcohol Use: No - Smoking History Smoking history: Former smoker Have you smoked in the past 12 months: No Aproximately how many cigarettes per day: 0 If you are a former smoker, when did you quit?: 17yrs ago - Social History Usual Living Arrangement: With Spouse ADL: Independent 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 History of Recent Travel: No Home Medications - Allergies Allergies/Adverse Reactions: Allergies Allergy/AdvReac Type Severity Reaction Status Date / Time codeine [Codeine] AdvReac Severe abd pain Verified 02/15/18 16:52 morphine AdvReac Severe Verified 02/15/18 16:52 - Home Medications Home Medications: Ambulatory Orders Budesonide/Formoterol Fumarate [Symbicort 160-4.5 Mcg Inhaler] 1 ih IH BID 11/07 Metformin HCl [Metformin HCl ER] 500 mg PO BID 12/09/15 Metoprolol Succinate [Toprol XL -] 50 mg PO HS 12/09/15 Ascorbic Acid [Vitamin C -] 100 mg PO DAILY 04/09/16 Ferrous Sulfate [Feosol] 325 mg PO BID 04/09/16 Gabapentin [Neurontin] 600 mg PO TID 04/09/16 Metoprolol Succinate [Toprol XL -] 100 mg PO AM 04/09/16 Digoxin [Lanoxin -] 0.25 mg PO DAILY #30 tablet 04/12/16 Pantoprazole Sodium [Protonix -] 40 mg PO DAILY 10/18/16 Prednisone 5 mg PO AM 10/18/16 Repaglinide [Prandin -] 1 mg PO DAILY 10/18/16 predniSONE [Deltasone -] 2.5 mg PO HS 10/18/16 Levalbuterol Tartrate [Xopenex Hfa] 15 gm IH PRN 02/15/18 Family Disease History - Family Disease History Family Disease History: Diabetes: Father, CA: Son (melanoma) Review of Systems - Review of Systems Constitutional: reports: Fever, Weakness Eyes: reports: No Symptoms Neck: reports: No Symptoms Cardiovascular: reports: No Symptoms Respiratory: reports: SOB on Exertion Musculoskeletal: reports: Muscle Weakness Integumentary: reports: Bruising Neurological: reports: Weakness Psychiatric: reports: Altered Sleep Pattern, Anxiety, Depression - Risk Factors Known Risk Factors: Yes: Age, Gender, Hypertension, Physical Inactivity, Smoking (former), Other Vital Signs: Vital Signs Temperature 99.0 F 03/27/18 13:48 Pulse Rate 94 H 03/27/18 13:48 Respiratory Rate 18 03/27/18 13:48 Blood Pressure 107/63 03/27/18 13:48 O2 Sat by Pulse Oximetry (%) 95 03/27/18 13:48 Constitutional: Yes: Anxious Eyes: Yes: WNL HENT: Yes: WNL Neck: Yes: WNL Respiratory: Yes: Regular Gastrointestinal: Yes: Soft Renal/: No: Anuria Cardiovascular: Yes: Pulse Irregular JVD: No Carotid Bruit: No PMI: Non-Displaced Heart Sounds: Yes: S1, S2 Murmur: Yes: Systolic Murmur, Grade 1 Musculoskeletal: Yes: Back Pain, Joint Stiffness, Muscle Weakness Extremities: Yes: Cool Edema: No Peripheral Pulses WNL: Yes Integumentary: Yes: WNL Neurological: Yes: Alert, Oriented, Weakness Psychiatric: Yes: Other (anxiety/depression) - Other Data Ejection Fraction %: LVEF > or = 40 % Imaging - Results Chest X-ray: Image Reviewed (no acute pathology) Problem List - Problems (1) Anemia Code(s): D64.9 - ANEMIA, UNSPECIFIED Qualifiers: Anemia type: unspecified type Qualified Code(s): D64.9 - Anemia, unspecified (2) Atrial fibrillation Assessment/Plan: On metoprolol bid at home. Not on anticoagulant (?due to prior GI bleed). Normal LVEF; mild-moderate LA size;mild MR and TR by 2016 ECHO; will repeat. Code(s): I48.91 - UNSPECIFIED ATRIAL FIBRILLATION Qualifiers: Atrial fibrillation type: unspecified Qualified Code(s): I48.91 - Unspecified atrial fibrillation (3) COPD (chronic obstructive pulmonary disease) Code(s): J44.9 - CHRONIC OBSTRUCTIVE PULMONARY DISEASE, UNSPECIFIED (4) Melanoma Assessment/Plan: f/u with oncologist Code(s): C43.9 - MALIGNANT MELANOMA OF SKIN, UNSPECIFIED (5) Sepsis Code(s): A41.9 - SEPSIS, UNSPECIFIED ORGANISM (6) Weakness Code(s): R53.1 - WEAKNESS (7) Scalp wound Assessment/Plan: s/p redo craniotomy 01/2018; now with fever (101 F at home this morning, per pt' s ) and yellowish discharge from surgical site. Cultures; antibiotics; antipyretics. F/u with neurosurgeon. Code(s): S01.00XA - UNSPECIFIED OPEN WOUND OF SCALP, INITIAL ENCOUNTER
--- NOTE | 2018-03-27 15:04 | PDOC ---
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 The states that last week she noticed a yellow discharge coming from the surgical site on his scalp which she reported to the patients neurosurgeon, who put him on a course of amoxicillin. states that the discharge cleared up completely except for a scant amount of crusting from the surgical site. However, this morning, the patient became febrile to 101. Denies any associated chills, nausea, vomiting, diarrhea, cough , shortness of breath, chest pain or urinary complaints. The patient reports having a headache this morning but has since subsided. He denies any focal neurological deficits. <JobDanilo - Last Filed: 03/27/18 19:21> - General Chief Complaint: Cold Symptoms Stated Complaint: FEVER Time Seen by Provider: 03/27/18 14:00 Past History <Katrin May - Last Filed: 03/27/18 18:58> - Past Medical History Anemia: Yes Asthma: Yes Cancer: Yes (MELANOMA stage 4) Cardiac Disorders: Yes (AFIB,) CVA: No COPD: Yes CHF: No Dementia: No Diabetes: Yes GI Disorders: Yes (diverticulitis/colitis) Disorders: No HTN: No Hypercholesterolemia: No Liver Disease: No Seizures: Yes (CLEARED MASS IN FRONTAL LOBE) Thyroid Disease: (adrenal insufficiency) - Surgical History Abdominal Surgery: Yes (HOLLY INGUINAL HERNIA REPAIR X2) Appendectomy: No Cardiac Surgery: No (CARDIAC CATH 07/2008 CLEAR) Cholecystectomy: Yes Lung Surgery: No Neurologic Surgery: Yes (CRANIOTOMY 11/18) Orthopedic Surgery: Yes (left femoral dissection and total knee replacement) - Immunization History Td Vaccination: No TDAP Vaccination: No Immunization Up to Date: No - Suicide/Smoking/Psychosocial Hx Smoking Status: No Smoking History: Former smoker Have you smoked in the past 12 months: No Number of Cigarettes Smoked Daily: 0 If you are a former smoker, when did you quit?: 17yrs ago Information on smoking cessation initiated: No 'Breaking Loose' booklet given: 04/22/16 Hx Alcohol Use: No Drug/Substance Use Hx: No Substance Use Type: None Hx Substance Use Treatment: No <Danilo Kaiser - Last Filed: 03/27/18 19:21> - Past Medical History Allergies/Adverse Reactions: Allergies Allergy/AdvReac Type Severity Reaction Status Date / Time codeine [Codeine] AdvReac Severe abd pain Verified 02/15/18 16:52 morphine AdvReac Severe Verified 02/15/18 16:52 Home Medications: Ambulatory Orders Budesonide/Formoterol Fumarate [Symbicort 160-4.5 Mcg Inhaler] 1 ih IH BID 11/07 Metformin HCl [Metformin HCl ER] 500 mg PO BID 12/09/15 Metoprolol Succinate [Toprol XL -] 50 mg PO HS 12/09/15 Ascorbic Acid [Vitamin C -] 100 mg PO DAILY 04/09/16 Ferrous Sulfate [Feosol] 325 mg PO BID 04/09/16 Gabapentin [Neurontin] 600 mg PO TID 04/09/16 Metoprolol Succinate [Toprol XL -] 100 mg PO AM 04/09/16 Digoxin [Lanoxin -] 0.25 mg PO DAILY #30 tablet 04/12/16 Pantoprazole Sodium [Protonix -] 40 mg PO DAILY 10/18/16 Prednisone 5 mg PO AM 10/18/16 Repaglinide [Prandin -] 1 mg PO DAILY 10/18/16 predniSONE [Deltasone -] 2.5 mg PO HS 10/18/16 Levalbuterol Tartrate [Xopenex Hfa] 15 gm IH PRN 02/15/18 Review of Systems - Review of Systems Comments:: 03/27/18 15:04 "GENERAL/CONSTITUTIONAL: + fever, no chills. No weakness. HEAD, EYES, EARS, NOSE AND THROAT: No change in vision. No ear pain or discharge. No sore throat. CARDIOVASCULAR: No chest pain or shortness of breath. RESPIRATORY: No cough, wheezing, or hemoptysis. GASTROINTESTINAL: No nausea, vomiting, diarrhea or constipation. GENITOURINARY: No dysuria, frequency, or change in urination. MUSCULOSKELETAL: No joint or muscle swelling or pain. No neck or back pain. SKIN: No rash NEUROLOGIC: No headache, vertigo, loss of consciousness, or change in strength/ sensation. ENDOCRINE: No increased thirst. No abnormal weight change. HEMATOLOGIC/LYMPHATIC: No anemia, easy bleeding, or history of blood clots. ALLERGIC/IMMUNOLOGIC: No hives or skin allergy. " <Danilo Kaiser - Last Filed: 03/27/18 19:21> *Physical Exam - Vital Signs Last Vital Signs Temp Pulse Resp BP Pulse Ox 99.0 F 94 H 18 107/63 95 03/27/18 13:48 03/27/18 13:48 03/27/18 13:48 03/27/18 13:48 03/27/18 13:48 <Katrin May - Last Filed: 03/27/18 18:58> - Vital Signs Last Vital Signs Temp Pulse Resp BP Pulse Ox 99.0 F 94 H 18 107/63 95 03/27/18 13:48 03/27/18 13:48 03/27/18 13:48 03/27/18 13:48 03/27/18 13:48 - Physical Exam Comments: 03/27/18 15:04 GENERAL: Awake, alert, and fully oriented, in no acute distress. HEAD: + well healed craniotomy incision with scant amount of yellow crusting, no erythema/fluctuance/induration, no purulent drainage EYES: PERRLA, EOMI, sclera anicteric, conjunctiva clear ENT: Auricles normal inspection, hearing grossly normal, nares patent, oropharynx clear without exudates. Moist mucosa NECK: Nontender, no stepoffs, Normal ROM, supple, no lymphadenopathy, JVD, or masses LUNGS: Breath sounds equal, clear to auscultation bilaterally. No wheezes, and no crackles HEART: Regular rate and rhythm, normal S1 and S2, no murmurs, rubs or gallops ABDOMEN: Soft, nontender, normoactive bowel sounds. No guarding, no rebound. No masses EXTREMITIES: Normal range of motion, no edema. No clubbing or cyanosis. No cords, erythema, or tenderness NEUROLOGICAL: Cranial nerves II through XII intact. 5/5 strength and sensation in all extremities, Normal speech, normal gait, normal cerebellar function SKIN: Warm, Dry, normal turgor, no rashes or lesions noted. <OuDanilo - Last Filed: 03/27/18 19:21> ED Treatment Course - LABORATORY CBC & Chemistry Diagram: 03/27/18 15:23 03/27/18 15:23 - ADDITIONAL ORDERS Additional order review: Laboratory Results 03/27/18 03/27/18 03/27/18 15:36 15:23 15:23 PT with INR INR PTT (Actin FS) VBG pH 7.44 H POC VBG pCO2 39.9 POC VBG pO2 59.9 H Mixed VBG HCO3 26.8 H Sodium 141 Potassium 4.2 Chloride 102 Carbon Dioxide 26 Anion Gap 13 BUN 15 Creatinine 0.6 Creat Clearance w eGFR > 60 Random Glucose 252 H Total Bilirubin 1.0 AST 27 ALT 40 Alkaline Phosphatase 91 Troponin I < 0.02 Total Protein 5.9 L Albumin 2.7 L Urine Color Dkyellow Urine Appearance Clear Urine pH 5.0 Ur Specific [place] 1.028 Urine Protein 1+ H Urine Glucose (UA) 3+ H Urine Ketones Trace H Urine Blood Negative Urine Nitrite Negative Urine Bilirubin Negative Urine Urobilinogen Negative Ur Leukocyte Esterase Negative Urine WBC (Auto) 1 Urine RBC (Auto) 1 Urine Mucus Rare 03/27/18 15:23 PT with INR 12.50 INR 1.11 H PTT (Actin FS) 29.8 VBG pH POC VBG pCO2 POC VBG pO2 Mixed VBG HCO3 Sodium Potassium Chloride Carbon Dioxide Anion Gap BUN Creatinine Creat Clearance w eGFR Random Glucose Total Bilirubin AST ALT Alkaline Phosphatase Troponin I Total Protein Albumin Urine Color Urine Appearance Urine pH Ur Specific [place] Urine Protein Urine Glucose (UA) Urine Ketones Urine Blood Urine Nitrite Urine Bilirubin Urine Urobilinogen Ur Leukocyte Esterase Urine WBC (Auto) Urine RBC (Auto) Urine Mucus 03/27/18 15:23 RBC 3.63 L MCV 97.6 H MCHC 34.3 RDW 17.0 H MPV 7.5 Neutrophils % 84.0 H Lymphocytes % 7.3 L D Monocytes % 7.2 Eosinophils % 0.5 D Basophils % 1.0 - RADIOLOGY Radiograph Interpretation: 03/27/18 17:14 Chest x-ray as reviewed by Dr. Hamm reports interval spinal surgery but no acute pathology. - Medications Given in the ED: ED Medications Discontinued Medications Generic Name Dose Route Start Last Admin Trade Name Freq PRN Reason Stop Dose Admin Sodium Chloride 1,000 mls @ 1,000 mls/hr 03/27/18 15:05 03/27/18 15:39 Normal Saline - IV 03/27/18 16:04 1,000 mls/hr ASDIR STA Administration <Kartin May - Last Filed: 03/27/18 18:58> - LABORATORY CBC & Chemistry Diagram: 03/27/18 15:23 03/27/18 15:23 - RADIOLOGY Radiology Studies Ordered: Category Date Time Status HEAD CT WITH AND W/O CONTRAST [CT] Stat CT Scan 03/27/18 14:13 Ordered CHEST X-RAY PORTABLE* [RAD] Stat Radiology 03/27/18 14:10 Taken <JobDanilo - Last Filed: 03/27/18 19:21> Medical Decision Making - Medical Decision Making 03/27/18 18:[address] Magali Bales, patient's neurosurgeon. Awaiting waldemar back. 03/27/18 18:25 Microblog sent to [employer], awaiting call back. 03/27/18 18:35 Phone call returned by Dr. Bales, case was discussed. 03/27/18 18:46 Phone call placed to Dr. Ramirez Simmons, awaiting call back. 03/27/18 18:58 Phone call returned by Dr. Simmons. Case was discussed. <Katrin May - Last Filed: 03/27/18 18:58> - Medical Decision Making 03/27/18 15:04 62 M presenting with fever. Will need to r/o intracranial abscess given recent craniotomy and history of discharge from wound, though wound today looks well healed with no signs of infection. Also consider PNA/UTI/viral syndrome. - Labs, cultures - CXR, UA - Flu swab - CT head w/ contrast 03/27/18 18:16 Labs wnl. CXR and UA clear. CT head shows R frontal rim enhancing lesion - fluid collection vs abscess vs metastasis. Will attempt to call pt's neurosurgeon at [facility], Dr. Bales ([phone]) Discussed results with pt, who is adamant that he DOES NOT want to be transferred to [facility] and would not consent for a transfer. 03/27/18 18:[address] Bales, who reports that previous imaging did not reveal any collection or mass. She recommends transfer to [place] for further management. I discussed with pt, who again refuses transfer. Will consult nsgy here Empiric abx ordered for potential intracranial abscess 03/27/18 19:[address] Simmons, who recommends MRI w/wo contrast and starting seizure prophylaxis. Will load with Keppra 1g Will admit to hospitalist <Danilo Kaiser - Last Filed: 03/27/18 19:21> *DC/Admit/Observation/Transfer <Katrin May - Last Filed: 03/27/18 18:58> - Discharge Dispostion Decision to Admit order: Yes - Attestations Physician Attestion: 03/27/18 19:21 I, Dr. Danilo Kaiesr MD, attest that this document has been prepared under my direction and personally reviewed by me in its entirety. I further attest, that it accurately reflects all work, treatment, procedures and medical decision -making performed by me. <Danilo Kaiser - Last Filed: 03/27/18 19:21> Diagnosis at time of Disposition: Fever, Intracranial mass, Metastatic melanoma - Referrals Referrals: Rodrigo Andrade MD [Primary Care Provider] - - Patient Instructions - Post Discharge Activity
[2018-03-27] MEDS ORDERED: SODIUM CHLORIDE 1,000 ML IV STA (15:05)
[2018-03-27 15:37] LABS: EOS % 0.5 % (0-4.5); HEMATOCRIT 35.4 % (35.4-49); HEMOGLOBIN 12.2 GM/dL (11.7-16.9); LYMPH % 7.3 % (8-40); MCH 33.5 pg (25.7-33.7); MCHC 34.3 g/dl (32.0-35.9); MEAN CELL VOLUME 97.6 fl (80-96); MEAN PLT VOLUME 7.5 fl (7.5-11.1); MONO % 7.2 % (3.8-10.2); PLATELET COUNT 181 K/MM3 (134-434); RBC 3.63 M/mm3 (4.00-5.60); WHITE BLOOD COUNT 8.6 K/mm3 (4.0-10.0)
[2018-03-27 15:40] LABS: VENOUS PC02 39.9 mmHg (38-52); VENOUS PH 7.44 (7.32-7.42); VENOUS PO2 59.9 mmHg (28-48)
[2018-03-27 15:49] LABS: INR 1.11 (0.83-1.09); PROTHROMBIN TIME (PATIENT) 12.5 SEC (9.7-13.0)
[2018-03-27 15:52] LABS: ACTIVATED PTT 29.8 SECONDS (25.2-36.5)
[2018-03-27 16:00] LABS: ALBUMIN 2.7 g/dl (3.4-5.0); ANION GAP 13 MMOL/L (8-16); BLOOD UREA NITROGEN 15 mg/dL (7-18); CHLORIDE 102 mmol/L (98-107); CO2 26 mmol/L (21-32); CREATININE 0.6 mg/dL (0.55-1.3); GLUCOSE,RANDOM 252 mg/dL (74-106); SGPT/ALT 40 U/L (13-61); SODIUM 141 mmol/L (136-145); TOT PROT 5.9 g/dl (6.4-8.2)
[2018-03-27 16:02] LABS: ALK PHOS 91 U/L (45-117)
--- NOTE | 2018-03-27 16:13 | EKG ---
Test Reason : Blood Pressure : / mmHG Vent. Rate : 092 BPM Atrial Rate : 092 BPM P-R Int : 156 ms QRS Dur : 088 ms QT Int : 332 ms P-R-T Axes : 058 071 051 degrees QTc Int : 410 ms SINUS RHYTHM WITH PREMATURE ATRIAL COMPLEXES OTHERWISE NORMAL ECG WHEN COMPARED WITH ECG OF 15-FEB-2018 18:41, PREMATURE ATRIAL COMPLEXES ARE NOW PRESENT Confirmed by Sal Schwab ([id number]) on 03/27/2018 4:13:02 PM Referred By: Confirmed By:Sal Schwab
[2018-03-27 16:35] LABS: POTASSIUM 4.2 mmol/L (3.5-5.1); SGOT/AST 27 U/L (15-37)
[2018-03-27 16:58] LABS: URINE APPEARANCE CLEAR; URINE BILIRUBIN NEGATIVE (<2.0 mg/dL); URINE COLOR DKYELLOW; URINE GLUCOSE (UA) 3+ (NEGATIVE); URINE KETONE TRACE (NEGATIVE); URINE LEUK ESTERASE NEGATIVE (NEGATIVE); URINE NITRITE NEGATIVE (NEGATIVE); URINE UROBILINOGEN NEGATIVE mg/dL (0.2-1.0)
[2018-03-27 16:59] LABS: URINE PROTEIN 1+ (NEGATIVE)
[2018-03-27 17:06] LABS: URINE MUCUS RARE
[2018-03-27 17:26] LABS: PLATELET ESTIMATE ADEQUATE
[2018-03-27 17:36] LABS: CALCIUM 8.5 mg/dL (8.5-10.1)
[2018-03-27] MEDS ORDERED: VANCOMYCIN 1,250 MG in DEXTROSE 5%-WATER - 250 ML IVPB ONE (18:45)
[2018-03-27] MEDS ORDERED: PIPERACILLIN/TAZOB 4.5 GM 4.5 GM in DEXTROSE 5%-WATER 100 ML IVPB ONE (18:45)
[2018-03-27] MEDS ORDERED: PIPERACILLIN/TAZOB 4.5 GM 4.5 GM/100 ML BAG IVPB ONE (19:01)
[2018-03-27] MEDS ORDERED: levETIRAcetam 500 MG/5 ML INJECTION VIAL IVPB ONE ×2 (19:02→20:18)
[2018-03-27] MEDS ORDERED: ACETAMINOPHEN 325 MG TABLET (FP) PO ONE (19:39)
[2018-03-27] MEDS ORDERED: ACETAMINOPHEN 325 MG TABLET (FP) ONE (19:40)
--- NOTE | 2018-03-27 20:09 | PN ---
Progress Note (short form) - Note Progress Note: NEUROSURGERY CONSULT DICTATED H/o stage IV melanoma, hypertension, hyperlipidemia, diabetes, atrial fibrillation (not on anticoagulation), initially s/p craniotomy and debulking 5 years ago followed by stereotactic radiosurgery, and redo craniotomy and Ommaya catheter in 01/2018, who presents to the ED with complaints of fever that began this morning. Yellow discharge coming from the surgical site on his scalp for a couple weeks. Dr Bales, operating surgeon, put him on a course of amoxicillin. This morning, the patient became febrile to 101. Denies any associated chills, nausea, vomiting, diarrhea, cough, shortness of breath, chest pain or urinary complaints. The patient reports having a headache and PT noted L LE weakness. PE: Tmax 99.9 Scalp incision (posterior limb) with purulent discharge back incision- mostly healed with slight erythemia Mild jaundice L LE 4+/5, mild L UE drift Head CT 02/2018- R frontal craniotomy with intracranial air; catheter in frontal horn Head CT today- R frontal irregularly enhancing lesion with mild mass effect; catheter pulled back by collection/lesion Brain MRI (prelim)- fluid collection with peripheral enhancement; appears to connect with subdural and possibly subgaleal space; mild mass effect, mild edema Probable brain abscess: high risks for infection given stage IV melanoma, DM, prior RT, prior craniotomy, prior chemo and recent posterior T spine surgery Culture scalp drainage after cleaning and send for gram stain and culture Offered and strongly recommended transfer back to [facility] since he is within the postoperative period and Dr Bales had operated on him twice already If collection under the bone flap is purulent the bone flap would need to be presumed infected and removed aswell Pt declines to be transferred back to [facility], despite the above Obtain op report 01/2018 to ascertain implant type if possible Keppra for seizure prophylaxis
[2018-03-27] MEDS ORDERED: ENOXAPARIN NA (PORCINE) 40 MG/0.4 ML DISP.SYRIN SQ SCH (21:15)
--- NOTE | 2018-03-27 21:33 | HP ---
CHIEF COMPLAINT: fever and weakness x1 day PCP: HISTORY OF PRESENT ILLNESS: 62 y/o male with PMH of stage 4 melanoma with mets to the brain (s/p recent craniotomy) and kidney (s/p L nephrectomy), HTN, HLD, DM afib (not on AC), COPD presents to the ED with a one day history of fever and LE weakness. Of note, patient had a re-do craniotomy back in January at [facility] and began to notice yellowish discharge draining from the incision site shortly after the surgery, so [facility] so that the amount of fluid was soaking through his pillows nightly. Patient went to his neurosurgeon 10 days ago for this complaint and was placed on amoxicillin. This morning, patient woke up not feeling himself found to have a fever of 101 and also complained of headache, but denied any dizziness or vision changed. He went to physical therapy and the therapist noticed he wasnt acting himself so she told him to come to the ER. Of note, patient is refusing to go back to [facility] for any further treatment or surgeries. ER course was notable for: (1)labs unremarkable besides glucose of 252 (2) head CT showed R frontal rim enhancing lesion with fluid collection; possible abcess vs. metastatic disease (3) given vanc/zosyn and loaded with keppra 1g; received 1L fluids in ER Recent Travel: none PAST MEDICAL HISTORY: see above PAST SURGICAL HISTORY: 2 craniotomies; multiple herniated disc repair surgeries; inguinal hernia repair ; L nephrectomy; cholecystectomy; L knee replacement Social History: Smoking: former ppd smoker for 20 years; quit 17 years ago Alcohol:denies Drugs: denies Family History: father DM; paternal grandfather past from bone cancer; mother past from stomach cancer Allergies codeine [Codeine] Adverse Reaction (Severe, Verified 02/15/18 16:52) abd pain morphine Adverse Reaction (Severe, Verified 02/15/18 16:52) ABD PAIN HOME MEDICATIONS: Home Medications Medication Instructions Recorded Budesonide/Formoterol Fumarate 1 ih IH BID 11/08/11 [Symbicort 160-4.5 Mcg Inhaler] Metformin HCl [Metformin HCl ER] 500 mg PO BID 12/09/15 Metoprolol Succinate [Toprol XL -] 50 mg PO HS 12/09/15 Ascorbic Acid [Vitamin C -] 100 mg PO DAILY 04/09/16 Ferrous Sulfate [Feosol] 325 mg PO BID 04/09/16 Gabapentin [Neurontin] 600 mg PO TID 04/09/16 Metoprolol Succinate [Toprol XL -] 100 mg PO AM 04/09/16 Digoxin [Lanoxin -] 0.25 mg PO DAILY #30 tablet 04/12/16 Pantoprazole Sodium [Protonix -] 40 mg PO DAILY 10/18/16 Prednisone 5 mg PO AM 10/18/16 Repaglinide [Prandin -] 1 mg PO DAILY 10/18/16 predniSONE [Deltasone -] 2.5 mg PO HS 10/18/16 Levalbuterol Tartrate [Xopenex Hfa] 15 gm IH PRN 02/15/18 REVIEW OF SYSTEMS CONSTITUTIONAL: Present: fever, generalized weakness Absent: chills, diaphoresis, malaise, loss of appetite, weight change HEENT: Absent: rhinorrhea, nasal congestion, throat pain, throat swelling, difficulty swallowing, mouth swelling, ear pain, eye pain, visual changes CARDIOVASCULAR: Absent: chest pain, syncope, palpitations, irregular heart rate, lightheadedness , peripheral edema RESPIRATORY: Absent: cough, shortness of breath, dyspnea with exertion, orthopnea, wheezing, stridor, hemoptysis GASTROINTESTINAL: Absent: abdominal pain, abdominal distension, nausea, vomiting, diarrhea, constipation, melena, hematochezia GENITOURINARY: Absent: dysuria, frequency, urgency, hesitancy, hematuria, flank pain, genital pain MUSCULOSKELETAL: Absent: myalgia, arthralgia, joint swelling, back pain, neck pain SKIN: Absent: rash, itching, pallor HEMATOLOGIC/IMMUNOLOGIC: Absent: easy bleeding, easy bruising, lymphadenopathy, frequent infections ENDOCRINE: Absent: unexplained weight gain, unexplained weight loss, heat intolerance, cold intolerance NEUROLOGIC: Present: headache, Absent: focal weakness or paresthesias, dizziness, unsteady gait, seizure, mental status changes, bladder or bowel incontinence PSYCHIATRIC: Absent: anxiety, depression, suicidal or homicidal ideation, hallucinations. PHYSICAL EXAMINATION Vital Signs - 24 hr 03/27/18 03/27/18 13:48 15:10 Temperature 99.0 F 99.9 F H Pulse Rate 94 H Respiratory 18 Rate Blood Pressure 107/63 O2 Sat by Pulse 95 Oximetry (%) GENERAL: Awake, alert, and fully oriented, in no acute distress. HEAD: scalp incision sight + yellowish fluid draining from sight . NECK: no JVD appreciated . LUNGS:CTA B/L; no rales, rhonchi or wheezing. HEART: irregularly irregular, normal S1 and S2 without murmur, rub or gallop. ABDOMEN: Soft, nontender, not distended, normoactive bowel sounds, no guarding, no rebound, no masses. No hepatomegaly or splenomegaly. MUSCULOSKELETAL: Normal range of motion at all joints. No bony deformities or tenderness. No CVA tenderness. EXTREMITES: warm; well-perfused; no clubbing, cyanosis or edema NEUROLOGICAL: Cranial nerves II-XII intact. Normal speech. Normal gait. strength: LLE 4/5, LUE 5/5; RUE/RLE: 5/5; sensation intact B/L PSYCHIATRIC: Cooperative. Good eye contact. Appropriate mood and affect. SKIN: Warm, dry, normal turgor, no rashes or lesions noted, normal capillary refill. Laboratory Results - last 24 hr 03/27/18 03/27/18 03/27/18 15:23 15:23 15:23 WBC 8.6 RBC 3.63 L Hgb 12.2 Hct 35.4 MCV 97.6 H MCH 33.5 MCHC 34.3 RDW 17.0 H Plt Count 181 D MPV 7.5 Absolute Neuts (auto) 7.2 Total Counted 100 Neutrophils % 84.0 H Neutrophils % (Manual) 76.0 Band Neutrophils % 1.0 Lymphocytes % 7.3 L D Lymphocytes % (Manual) 10.0 D Monocytes % 7.2 Monocytes % (Manual) 8 Eosinophils % 0.5 D Basophils % 1.0 Nucleated RBC % 0 Metamyelocytes 5 H Platelet Estimate Adequate Platelet Comment No clumping noted PT with INR 12.50 INR 1.11 H PTT (Actin FS) 29.8 VBG pH 7.44 H POC VBG pCO2 39.9 POC VBG pO2 59.9 H Mixed VBG HCO3 26.8 H Sodium Potassium Chloride Carbon Dioxide Anion Gap BUN Creatinine Creat Clearance w eGFR Random Glucose Calcium Total Bilirubin AST ALT Alkaline Phosphatase Troponin I Total Protein Albumin Urine Color Urine Appearance Urine pH Ur Specific [place] Urine Protein Urine Glucose (UA) Urine Ketones Urine Blood Urine Nitrite Urine Bilirubin Urine Urobilinogen Ur Leukocyte Esterase Urine WBC (Auto) Urine RBC (Auto) Urine Mucus 03/27/18 03/27/18 15:23 15:36 WBC RBC Hgb Hct MCV MCH MCHC RDW Plt Count MPV Absolute Neuts (auto) Total Counted Neutrophils % Neutrophils % (Manual) Band Neutrophils % Lymphocytes % Lymphocytes % (Manual) Monocytes % Monocytes % (Manual) Eosinophils % Basophils % Nucleated RBC % Metamyelocytes Platelet Estimate Platelet Comment PT with INR INR PTT (Actin FS) VBG pH POC VBG pCO2 POC VBG pO2 Mixed VBG HCO3 Sodium 141 Potassium 4.2 Chloride 102 Carbon Dioxide 26 Anion Gap 13 BUN 15 Creatinine 0.6 Creat Clearance w eGFR > 60 Random Glucose 252 H Calcium 8.5 Total Bilirubin 1.0 AST 27 ALT 40 Alkaline Phosphatase 91 Troponin I < 0.02 Total Protein 5.9 L Albumin 2.7 L Urine Color Dkyellow Urine Appearance Clear Urine pH 5.0 Ur Specific [place] 1.028 Urine Protein 1+ H Urine Glucose (UA) 3+ H Urine Ketones Trace H Urine Blood Negative Urine Nitrite Negative Urine Bilirubin Negative Urine Urobilinogen Negative Ur Leukocyte Esterase Negative Urine WBC (Auto) 1 Urine RBC (Auto) 1 Urine Mucus Rare ASSESSMENT/PLAN: 62 y/o male with PMH of Stage 4 melanoma (s/p recent redo craniotomy in January at [facility]), afib (not on AC), HTN, HLD,DM, COPD presents to the ED with a one day history of fever and LE weakness found, to have a R frontal rim enhancing lesion with fluid collection on head CT. # R front rim enhancing lesion found on CT possibly 2/2 abscess vs. metastatic disease - Brain MRI w/wo contrast ordered for further evalution -c/w vanc and zosyn for now as per ID -Dr. Simmons consulted; wants culture and gram stain of fluid - keppra 500 BID for seizure prophylaxis -patient refusing to go back to [facility] for further care -tylenol PRN for fever -blood cx and urine cx pending #Afib -not on AC; -need to verify if patient still taking digoxin 0.125 #HTN/ - c/w patients home meds #DM - holding patients home dose -started on ISS DVT Prophylaxis: lovenox 40 SQ F/E/N not on standing fluids replete electrolytes when needed diabetic diet dispo: telemetry Problem List - Problem (1) Fever Code(s): R50.9 - FEVER, UNSPECIFIED (2) Intracranial mass Code(s): R90.0 - INTCRN SPACE-OCCUPYING LESION FOUND ON DX IMAGING OF CNSL (3) Metastatic melanoma Code(s): C79.9 - SECONDARY MALIGNANT NEOPLASM OF UNSPECIFIED SITE (4) Atrial fibrillation Code(s): I48.91 - UNSPECIFIED ATRIAL FIBRILLATION Qualifiers: Atrial fibrillation type: unspecified Qualified Code(s): I48.91 - Unspecified atrial fibrillation Visit type - Emergency Visit Emergency Visit: Yes ED Registration Date: 03/27/18 Care time: The patient presented to the Emergency Department on the above date and was hospitalized for further evaluation of their emergent condition. - New Patient This patient is new to me today: Yes Date on this admission: 03/27/18 - Critical Care Critical Care patient: No Hospitalist Screening - Colonoscopy Questionnaire Colonoscopy Questionnaire: Colonoscopy Questionnaire - Patient: 50 - 75 years old and never had a screening colonoscopy: Unknown History of colon or rectal polyps, or CA: Unknown History of IBD, Crohn's disease or UC: Unknown History of abdominal radiation therapy as a child: Unknown - Relative: 1 with colon or rectal CA, or polyps at age 60 or younger: Unknown Colon or rectal CA diagnosed at age 45 or younger: Unknown Multiple relatives with colon or rectal CA: Unknown - Outcome: Screening Result: Negative Screen
[2018-03-27] MEDS ORDERED: D5-1/2NS+20 MEQ KCL - 20 MEQ/1,000 ML INFUS.BAG IV SCH (22:00)
--- NOTE | 2018-03-27 22:40 | PN ---
Teaching Attending Note Name of Resident: Monika Rico ATTENDING PHYSICIAN STATEMENT I saw and evaluated the patient. I reviewed the resident's note and discussed the case with the resident. I agree with the resident's findings and plan as documented. 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 The states that last week she noticed a yellow discharge coming from the surgical site on his scalp which she reported to the patients neurosurgeon, who put him on a course of amoxicillin. states that the discharge cleared up completely except for a scant amount of crusting from the surgical site. However, this morning, the patient became febrile to 101. Denies any associated chills, nausea, vomiting, diarrhea, cough, shortness of breath, chest pain or urinary complaints. The patient reports having a headache this morning but has since subsided. OBJECTIVE: Alert Vital Signs Period Temp Pulse Resp BP Sys/Betancourt Pulse Ox Last 24 Hr 99.0 F-99.9 F 94 18 107/63 95 HEENT: No Jaundice, eye redness or discharge, PERRLA, EOMI. Healed scalp incision on crown of head - no active drainage. External ears are normal and hearing is grossly intact. No nasal discharge. Neck: Supple, nontender. No palpable adenopathy or thyromegaly. No JVD Chest: Good effort. Clear to auscultation and percussion. Heart: Regular. No S3, rub or murmur Abdomen: Not distended, soft, nontender and no HSM. No rebound or guarding. Normoactive bowel sounds. Ext: Peripheral pulses intact. No leg edema. Skin: Warm and dry. No petechiae, rash or ecchymosis. Neuro: Alert. Oriented x3. CN 2-12 grossly intact. Sensation grossly intact in all four extremities; decreased strength in LLE. Current Medications Generic Name Dose Route Start Last Admin Trade Name Freq PRN Reason Stop Dose Admin Enoxaparin Sodium 40 mg 03/27/18 21:15 Lovenox - SQ DAILY SEBASTIÁN Vancomycin HCl 1,250 mg/ 250 mls @ 166.667 mls/hr 03/28/18 08:00 Dextrose IVPB Q12H SEBASTIÁN Protocol Piperacillin Sod/Tazobactam 100 mls @ 200 mls/hr 03/28/18 02:00 Sod 4.5 gm/ Dextrose IVPB Q8H-IV SEBASTIÁN Protocol Potassium Chloride/Dextrose/Sod Cl 20 meq in 1,000 mls @ 75 mls/hr 03/27/18 22 :00 D5-1/2ns+20 Meq Kcl - IV ASDIR SEBASTIÁN Insulin Aspart 1 vial 03/27/18 22:00 Novolog Vial Sliding Scale - SQ ACHS [facility] Protocol Home Medications Medication Instructions Recorded Budesonide/Formoterol Fumarate 1 ih IH BID 11/08/11 [Symbicort 160-4.5 Mcg Inhaler] Metformin HCl [Metformin HCl ER] 500 mg PO BID 12/09/15 Metoprolol Succinate [Toprol XL -] 50 mg PO HS 12/09/15 Ascorbic Acid [Vitamin C -] 100 mg PO DAILY 04/09/16 Ferrous Sulfate [Feosol] 325 mg PO BID 04/09/16 Gabapentin [Neurontin] 600 mg PO TID 04/09/16 Metoprolol Succinate [Toprol XL -] 100 mg PO AM 04/09/16 Digoxin [Lanoxin -] 0.25 mg PO DAILY #30 tablet 04/12/16 Pantoprazole Sodium [Protonix -] 40 mg PO DAILY 10/18/16 Prednisone 5 mg PO AM 10/18/16 Repaglinide [Prandin -] 1 mg PO DAILY 10/18/16 predniSONE [Deltasone -] 2.5 mg PO HS 10/18/16 Levalbuterol Tartrate [Xopenex Hfa] 15 gm IH PRN 02/15/18 Abnormal Lab Results 03/27/18 03/27/18 03/27/18 15:23 15:23 15:23 RBC 3.63 L MCV 97.6 H RDW 17.0 H Neutrophils % 84.0 H Lymphocytes % 7.3 L D Metamyelocytes 5 H INR 1.11 H VBG pH 7.44 H POC VBG pO2 59.9 H Mixed VBG HCO3 26.8 H Random Glucose Total Protein Albumin Urine Protein Urine Glucose (UA) Urine Ketones 03/27/18 03/27/18 15:23 15:36 RBC MCV RDW Neutrophils % Lymphocytes % Metamyelocytes INR VBG pH POC VBG pO2 Mixed VBG HCO3 Random Glucose 252 H Total Protein 5.9 L Albumin 2.7 L Urine Protein 1+ H Urine Glucose (UA) 3+ H Urine Ketones Trace H ASSESSMENT AND PLAN: 1. Postcraniotomy CLOTHING SORTER infection? - CT head shows right frontal rim enhancing lesion - fluid collection vs abscess vs metastasis. Sepsis work up done and patient is being evaluated by the neurosurgeon. Started on vancomycin, zosyn and keppra. ID consult. 2. Hypoalbuminemia - Possibly due to combined effects of malnutrition and inflammation associated with comorbid chronic conditions. Will ensure adequate dietary protein intake and also consult manager zone. 3. DM - For now, we will hold the home diabetes drugs and implement sliding scale insulin regimen. Provide comprehensive diabetes care with patient teaching and counseling about the importance of euglycemia, eye care and foot care. 4. DVT prophylaxis - Lovenox 40 mg SQ q 24 hours. 5. Advance directives - Full code
[2018-03-27] MEDS: INSULIN SLIDING SCALE (NOVOLOG) 1 VIAL SQ SCH (23:31)
[2018-03-27] MEDS ORDERED: INSULIN (NOVOLOG) ASPART 100 UNITS/ML 10ML VIAL ONE (23:33)
[2018-03-28] MEDS ORDERED: ACETAMINOPHEN 325 MG TABLET (FP) PO ONE (02:52)
[2018-03-28] MEDS ORDERED: PIPERACILLIN/TAZOB 4.5 GM 4.5 GM/100 ML BAG IVPB ONE (02:52)
[2018-03-28] MEDS: PIPERACILLIN/TAZOB 4.5 GM 4.5 GM in DEXTROSE 5%-WATER 100 ML IVPB SCH (03:02)
[2018-03-28] MEDS: INSULIN SLIDING SCALE (NOVOLOG) 1 VIAL SQ SCH ×3 (07:08→21:43)
[2018-03-28 07:30] LABS: BASO % 0.9 % (0-2.0); HEMATOCRIT 34.6 % (35.4-49); HEMOGLOBIN 11.6 GM/dL (11.7-16.9); LYMPH % 12.4 % (8-40); MCH 32.9 pg (25.7-33.7); MCHC 33.7 g/dl (32.0-35.9); MEAN CELL VOLUME 97.5 fl (80-96); MEAN PLT VOLUME 7.2 fl (7.5-11.1); MONO % 6.6 % (3.8-10.2); NEUT % 79.1 % (42.8-82.8); PLATELET COUNT 153 K/MM3 (134-434); RBC 3.55 M/mm3 (4.00-5.60); RDW 16.5 % (11.9-15.9); WHITE BLOOD COUNT 7.1 K/mm3 (4.0-10.0)
[2018-03-28 07:59] LABS: ALBUMIN 2.6 g/dl (3.4-5.0); ANION GAP 10 MMOL/L (8-16); BLOOD UREA NITROGEN 9 mg/dL (7-18); CHLORIDE 98 mmol/L (98-107); CO2 29 mmol/L (21-32); CREATININE 0.7 mg/dL (0.55-1.3); GLUCOSE,RANDOM 147 mg/dL (74-106); MAGNESIUM 1.7 mg/dL (1.8-2.4); PHOSPHOROUS 2.8 mg/dL (2.5-4.9); POTASSIUM 3.5 mmol/L (3.5-5.1); SGOT/AST 17 U/L (15-37); SGPT/ALT 35 U/L (13-61); SODIUM 137 mmol/L (136-145)
[2018-03-28 08:00] LABS: ALK PHOS 93 U/L (45-117); TOT PROT 5.7 g/dl (6.4-8.2)
[2018-03-28] MEDS ORDERED: VANCOMYCIN 1,250 MG in DEXTROSE 5%-WATER - 250 ML IVPB SCH ×2 (08:00→20:00)
[2018-03-28] MEDS ORDERED: BENZOIN/ALOE VERA/STORAX/TOLU 58 ML BOTTLE ONE ×2 (08:02→10:40)
[2018-03-28 08:43] LABS: INR 1.18 (0.83-1.09); PROTHROMBIN TIME (PATIENT) 13.3 SEC (9.7-13.0)
--- NOTE | 2018-03-28 08:53 | PN ---
Progress Note (short form) - Note Progress Note: NEUROSURGERY H/o stage IV melanoma/renal cell met, s/p redo craniotomy , cyst exploration, and Ommaya catheter in 01/2018, who presents to the ED with fever and scalp purulent drainage. and daughter at bedside. R frontal H/A. PE: T 99 Scalp incision (posterior limb of R frontal craniotomy incision) with purulent discharge back incision- mostly healed with slight erythemia Mild jaundice L LE 4+/5, mild L UE drift Head CT 02/2018- R frontal craniotomy with intracranial air; catheter tip in frontal horn Head CT today- R frontal irregularly enhancing lesion with mild mass effect; catheter pulled back by collection/lesion; r/o abscess vs tumor recurrence ( though prior craniotomy did not reveal tumor) Brain MRI - fluid collection with peripheral enhancement; appears to connect with subdural and possibly subgaleal space; mild mass effect, mild edema Probable brain abscess: high risks for infection given stage IV melanoma, DM, prior RT, prior craniotomy, prior chemo and recent posterior T spine surgery Offered and strongly recommended transfer back to [facility] since he is within the postoperative period and Dr Bales had operated on him twice already; Pt declines to be transferred back to [facility], despite the above If collection under the bone flap is purulent the bone flap would need to be presumed infected and removed Indications for procedure, procedure in detail, risks, benefits, alternatives, and overall care discussed and pt wishes to proceed with surgery Prior course/treatment d/w operating surgeon, Dr. Bales [phone] [facility] for seizure prophylaxis
[2018-03-28] MEDS ORDERED: fentaNYL CITRATE 250 MCG/5 ML VIAL ONE (09:00)
[2018-03-28] MEDS ORDERED: ROCURONIUM BROMIDE 50 MG/5 ML VIAL ONE ×2 (09:00→11:33)
[2018-03-28] MEDS ORDERED: PROPOFOL 20 ML ONE (09:00)
[2018-03-28] MEDS ORDERED: ONDANSETRON 4 MG/2 ML VIAL ONE (09:00)
[2018-03-28] MEDS ORDERED: SUCCINYLCHOLINE CHLORIDE 200 MG/10 ML VIAL ONE (09:00)
[2018-03-28] MEDS ORDERED: LIDOCAINE HCL/PF 2% SDV 5ML VIAL ONE (09:00)
[2018-03-28] MEDS ORDERED: DEXAMETHASONE SOD PHOSPHATE 4 MG/1 ML VIAL ONE (09:00)
--- NOTE | 2018-03-28 09:19 | CONS ---
DATE OF CONSULTATION: 03/27/2018 REQUESTING PHYSICIAN: Dr. Kaiser at the emergency department PLC CONTROLS ENGINEER: Elias Sanchez M.D. CHIEF COMPLAINT: Status post right frontal craniotomy, rule out abscess. HISTORY OF PRESENT ILLNESS: The patient is a 62-year-old right-handed male with history of stage IV melanoma, diabetes, hypertension and atrial fibrillation, who underwent craniotomy initially 5 years ago at [facility] for a stage IV melanoma. This was followed by stereotactic radiosurgery at [place] also. This past December the patient was found to have a recurrent cyst/tumor and underwent repeat craniotomy under the care of Dr. Bales. An Ommaya reservoir was also placed, reportedly to drain the cystic collection at the time. The patient while at [place] and in rehabilitation underwent a thoracic MRI because of his lower extremity weakness and was found to have thoracic disk disease. There, in February he underwent posterior thoracic decompression with instrumentation were done at the same time as well. Postoperatively, the patient went home about 3 weeks ago and developed a significant amount of drainage from his right frontal scalp incision. The drainage was purulent. The patient did see his operating surgeon at [place] and was put on amoxicillin. The drainage did slow down. However, this morning he developed a fever of 101. He also has a headache in the right frontal region. There is no associated nausea or vomiting, and he has had no seizure activity. He states that he has lower extremity weakness and was unable to undergo PT earlier today. PAST MEDICAL HISTORY: Significant for hypertension, stage IV melanoma, hypercholesterolemia, diabetes, atrial fibrillation. CURRENT MEDICATIONS: Include metformin, metoprolol, vitamin C, gabapentin, digoxin, Protonix, prednisone, Symbicort inhaler. ALLERGIES: CODEINE, MORPHINE. SOCIAL HISTORY: He drinks alcohol socially. He does not work. He is retired. He lives at his . REVIEW OF SYSTEMS: Otherwise negative for other major constitutional, head and neck, cardiovascular, pulmonary, gastrointestinal, genitourinary, endocrinological, neurological or psychological problems except for the above. PHYSICAL EXAMINATION: Vital Signs: Temperature is 99.9 currently. Blood pressure is 107/63. He has a pulse rate of 94. HEENT: Examination shows a right frontal horseshoe-shaped incision, hinged laterally. There is purulent discharge from the posterior limb of the incision. The drainage will be sent for Gram stain and culture later. Neck: Supple. Heart: Coronary examination demonstrated an irregular rhythm. Respiratory: Lungs are clear bilaterally. Abdomen: Obese but benign. Extremities: Examination shows no signs of DVT. Neurologic: He is awake, alert and oriented x4. Cranial nerve examination is intact II through XII. Motor examination shows 5/5 strength except for the left lower extremity, which is 4 to 4+. Sensory examination is intact to light touch. He has decreased distal lower extremity vibratory sensation. Deep tendon reflexes are hyporeflexic throughout. His left big toe is upgoing. Gait was not tested for safety reasons. Back: Examination shows a lower posterior thoracic 5-inch incision in the midline. There is slight erythema around the incision, but the incision appears healed. DIAGNOSTIC STUDIES: Laboratory examination shows white blood cell count 8.6, hemoglobin 12.2. There are 84% neutrophils and 7.3% lymphocytes. The manual differential shows 76% neutrophils and 10% lymphocytes. INR is 1.11, and PTT is 29.8. Serum sodium is 141. Potassium is 4.2. BUN and creatinine are 15 and 0.6, respectively. Albumin is 2.7. Urinalysis shows 1+ protein and 3+ glucose; there is trace ketone, there is 1 WBC and 1 RBC; leukocyte esterase was negative. Blood culture and urine culture are pending. CT scan of the head from February 2018 demonstrated postcraniotomy changes with pneumocephalus. There is a ventricular catheter in the right frontal horn near the midline. There is slight edema. CT scan of the head with and without contrast from earlier today demonstrated right frontal vasogenic edema with mild mass effect and mild midline shift. On the current examination, there is a rim-enhancing right frontal lesion of approximately 3.4 x 3.4 x 3.5 cm. This could be either subdural or intraparenchymal lesion. The ventricular catheter has been retracted from outside the frontal horn on the right side. An Ommaya reservoir is noted over the frontal bone flap. IMPRESSION: 1. Stage IV metastatic melanoma. 2. Rule out brain abscess. 3. Status post posterior thoracic procedure. 4. Hypertension/atrial fibrillation. 5. Diabetes. RECOMMENDATIONS: The patient presents with purulent discharge from the posterior aspect of the scalp incision. He has a history of diabetes, prior craniotomy and radiation treatment, as well as chemotherapy, making him at increased risk of developing an infection. The scalp drainage will be sent for Gram stain and culture. He should be on empiric antibiotic coverage. I spoke to the ER attending and started the patient on Keppra for seizure prophylaxis because the brain abscess could be highly epileptogenic. An MRI of the brain with and without gadolinium is recommended. More likely than not, his craniotomy bone flap and Ommaya reservoir would need to be removed, and the abscess debrided. Unfortunately, the bone flap will need to be left out if there is underlying purulent material in the subdural space or the epidural space. The above was discussed with the patient at bedside in the emergency room. He is urged strongly to be transferred back to [place], since his operating surgeon had operated on him twice, most recently 2 months ago. The patient adamantly does not want to do so despite recommendation from the emergency room attending and myself. He does understand that the most ideal treatment should be delivered by his operating surgeon. All questions were answered at the bedside. ELIAS SANCHEZ M.D. [place]/[id number] MTDD
[2018-03-28] MEDS ORDERED: ACETAMINOPHEN 1000 MG/100 ML VIAL (NON FORMULARY) IVPB ONE ×4 (09:20→16:45)
[2018-03-28] MEDS ORDERED: ONDANSETRON 4 MG/2 ML VIAL IVPUSH ONE (09:21)
[2018-03-28] MEDS ORDERED: VANCOMYCIN 1,000 MG VIAL (RESTRICTED TO ID ONLY) IVPB ONE (09:45)
[2018-03-28] MEDS ORDERED: THROMBIN (BOVINE) 5,000 UNIT VIAL TP ONE ×2 (09:56→12:24)
--- NOTE | 2018-03-28 10:01 | PN ---
Progress Note (short form) - Note Progress Note: ID Consult dictated 62 year old male with stage IV melanoma with brain mets admitted with fever, craniotomy wound drainage. Imaging reveals enhancing R frontal lesion brain abscess v. neoplasm. For craniotomy/ debridement in OR. Pending c/s empiric antibiotic coverage vancomycin/ cefepime/ flagyl
[2018-03-28 10:45] LABS: ANISOCYTOSIS 1+; MACROCYTOSIS 1+
--- NOTE | 2018-03-28 11:03 | PN ---
Physical Exam: SUBJECTIVE: Patient seen and examined at bedside this morning. He admits headache localized to midline of the head. Endorses yellow, "sticky" drainage from Ommaya catheter for approx 10 days. States he does not want to take Keppra as it causes him flashbacks from the [employer]. Denies changes in vision, dizziness, fevers, chills, shortness of breath, chest pain, palpitations, abdominal pain, nausea, vomiting, diarrhea focal weakness. OBJECTIVE: Vital Signs Period Temp Pulse Resp BP Sys/Betancourt Pulse Ox Last 24 Hr 98.8 F-101.2 F 89-104 16-19 107-145/63-79 95-99 GENERAL: The patient is awake, alert, and fully oriented, in no acute distress. HEAD: Linear scar overlying the Omayya catheter. Diffuse wetness over scalp. EYES: PERRLA, extraocular movements intact b/l. Sclera anicteric, conjunctiva clear. ENT: Oropharynx clear without exudates or lesions. Moist mucous membranes. NECK: Trachea midline, Supple without lymphadenopathy. LUNGS: Good inspiratory effort. Breath sounds equal, clear to auscultation bilaterally. No wheezes. No accessory muscle use. HEART: Irregular rate and rhythm. S1, S2 auscultated without murmur appreciated. ABDOMEN: Soft, nontender, nondistended. Normoactive bowel sounds x4 quadrants. No guarding, no rebound. No hepatosplenomegaly appreciated.. EXTREMITIES: 2+ radial and dorsalis pedis pulses. Warm. No lower extremity edema b/l. NEUROLOGICAL: Cranial nerves II through XII grossly intact. Normal speech. Strength 5/5 b/l upper extremities in flexion, extension, abduciton, adduction. Strength 5/5 right lower extremity in hip flexion, extension and knee flexion, extension. 4/5 in left lower extremity hip flexion, extension and knee flexion, extension PSYCH: Appropriate mood and affect upon my encounter. Laboratory Results - last 24 hr 03/27/18 03/27/18 03/27/18 15:23 15:23 15:23 WBC 8.6 RBC 3.63 L Hgb 12.2 Hct 35.4 MCV 97.6 H MCH 33.5 MCHC 34.3 RDW 17.0 H Plt Count 181 D MPV 7.5 Absolute Neuts (auto) 7.2 Total Counted 100 Neutrophils % 84.0 H Neutrophils % (Manual) 76.0 Band Neutrophils % 1.0 Lymphocytes % 7.3 L D Lymphocytes % (Manual) 10.0 D Monocytes % 7.2 Monocytes % (Manual) 8 Eosinophils % 0.5 D Basophils % 1.0 Nucleated RBC % 0 Metamyelocytes 5 H Platelet Estimate Adequate Platelet Comment No clumping noted PT with INR 12.50 INR 1.11 H PTT (Actin FS) 29.8 VBG pH 7.44 H POC VBG pCO2 39.9 POC VBG pO2 59.9 H Mixed VBG HCO3 26.8 H Sodium Potassium Chloride Carbon Dioxide Anion Gap BUN Creatinine Creat Clearance w eGFR POC Glucometer Random Glucose Calcium Phosphorus Magnesium Total Bilirubin AST ALT Alkaline Phosphatase Troponin I Total Protein Albumin Urine Color Urine Appearance Urine pH Ur Specific [place] Urine Protein Urine Glucose (UA) Urine Ketones Urine Blood Urine Nitrite Urine Bilirubin Urine Urobilinogen Ur Leukocyte Esterase Urine WBC (Auto) Urine RBC (Auto) Urine Mucus Blood Type Antibody Screen 03/27/18 03/27/18 03/27/18 15:23 15:36 23:30 WBC RBC Hgb Hct MCV MCH MCHC RDW Plt Count MPV Absolute Neuts (auto) Total Counted Neutrophils % Neutrophils % (Manual) Band Neutrophils % Lymphocytes % Lymphocytes % (Manual) Monocytes % Monocytes % (Manual) Eosinophils % Basophils % Nucleated RBC % Metamyelocytes Platelet Estimate Platelet Comment PT with INR INR PTT (Actin FS) VBG pH POC VBG pCO2 POC VBG pO2 Mixed VBG HCO3 Sodium 141 Potassium 4.2 Chloride 102 Carbon Dioxide 26 Anion Gap 13 BUN 15 Creatinine 0.6 Creat Clearance w eGFR > 60 POC Glucometer [phone] Random Glucose 252 H Calcium 8.5 Phosphorus Magnesium Total Bilirubin 1.0 AST 27 ALT 40 Alkaline Phosphatase 91 Troponin I < 0.02 Total Protein 5.9 L Albumin 2.7 L Urine Color Dkyellow Urine Appearance Clear Urine pH 5.0 Ur Specific [place] 1.028 Urine Protein 1+ H Urine Glucose (UA) 3+ H Urine Ketones Trace H Urine Blood Negative Urine Nitrite Negative Urine Bilirubin Negative Urine Urobilinogen Negative Ur Leukocyte Esterase Negative Urine WBC (Auto) 1 Urine RBC (Auto) 1 Urine Mucus Rare Blood Type Antibody Screen 03/28/18 03/28/18 03/28/18 06:16 06:20 07:10 WBC 7.1 RBC 3.55 L Hgb 11.6 L Hct 34.6 L MCV 97.5 H MCH 32.9 MCHC 33.7 RDW 16.5 H Plt Count 153 MPV 7.2 L Absolute Neuts (auto) 5.6 Total Counted Neutrophils % 79.1 Neutrophils % (Manual) Band Neutrophils % Lymphocytes % 12.4 D Lymphocytes % (Manual) Monocytes % 6.6 Monocytes % (Manual) Eosinophils % 1.0 D Basophils % 0.9 Nucleated RBC % 0 Metamyelocytes Platelet Estimate Platelet Comment PT with INR INR PTT (Actin FS) VBG pH POC VBG pCO2 POC VBG pO2 Mixed VBG HCO3 Sodium Potassium Chloride Carbon Dioxide Anion Gap BUN Creatinine Creat Clearance w eGFR POC Glucometer [phone] Random Glucose Calcium Phosphorus Magnesium Total Bilirubin AST ALT Alkaline Phosphatase Troponin I Total Protein Albumin Urine Color Urine Appearance Urine pH Ur Specific [place] Urine Protein Urine Glucose (UA) Urine Ketones Urine Blood Urine Nitrite Urine Bilirubin Urine Urobilinogen Ur Leukocyte Esterase Urine WBC (Auto) Urine RBC (Auto) Urine Mucus Blood Type O POSITIVE Antibody Screen Negative 03/28/18 03/28/18 03/28/18 07:10 07:10 07:10 WBC RBC Hgb Hct MCV MCH MCHC RDW Plt Count MPV Absolute Neuts (auto) Total Counted Neutrophils % Neutrophils % (Manual) Band Neutrophils % Lymphocytes % Lymphocytes % (Manual) Monocytes % Monocytes % (Manual) Eosinophils % Basophils % Nucleated RBC % Metamyelocytes Platelet Estimate Platelet Comment PT with INR 13.30 H INR 1.18 H PTT (Actin FS) 29.5 VBG pH POC VBG pCO2 POC VBG pO2 Mixed VBG HCO3 Sodium 137 Potassium 3.5 Chloride 98 Carbon Dioxide 29 Anion Gap 10 BUN 9 Creatinine 0.7 Creat Clearance w eGFR > 60 POC Glucometer Random Glucose 147 H Calcium 8.0 L Phosphorus 2.8 Magnesium 1.7 L Total Bilirubin 1.0 AST 17 ALT 35 Alkaline Phosphatase 93 Troponin I Total Protein 5.7 L Albumin 2.6 L Urine Color Urine Appearance Urine pH Ur Specific [place] Urine Protein Urine Glucose (UA) Urine Ketones Urine Blood Urine Nitrite Urine Bilirubin Urine Urobilinogen Ur Leukocyte Esterase Urine WBC (Auto) Urine RBC (Auto) Urine Mucus Blood Type Antibody Screen Active Medications Generic Name Dose Route Start Last Admin Trade Name Freq PRN Reason Stop Dose Admin Enoxaparin Sodium 40 mg 03/27/18 21:15 09/18/18 23:14 Lovenox - SQ Not Given DAILY SEBASTIÁN Vancomycin HCl 1,250 mg/ 250 mls @ 166.667 mls/hr 03/28/18 08:00 Dextrose IVPB Q12H SEBASTIÁN Protocol Piperacillin Sod/Tazobactam 100 mls @ 200 mls/hr 03/28/18 02:00 03/28/18 03: 02 Sod 4.5 gm/ Dextrose IVPB 200 mls/hr Q8H-IV SEBASTIÁN Administration Protocol Potassium Chloride/Dextrose/Sod Cl 20 meq in 1,000 mls @ 75 mls/hr 03/27/18 22 :00 03/27/18 23:43 D5-1/2ns+20 Meq Kcl - IV 75 mls/hr ASDIR SEBASTIÁN Administration Insulin Aspart 1 vial 03/27/18 22:00 03/28/18 07:08 Novolog Vial Sliding Scale - SQ Not Given ACHS SE[facility]ST[facility]N Protocol IMAGING: CT head: Nonspecific right frontal rim enhancing lesion 3.4 x 3.4 x 3.3 cm concerning for abscess vs. neoplastic disease. MRI head: ASSESSMENT/PLAN: Patient is a 62 year old male with history of stage four melanoma (s/p recent revision of craniotomy in January d/t leaking cyst), Afib (not on anticoagulation) , HTN, DM, COPD, presents with complaint of yellow, sticky discharge from Ommaya catheter for approx. 10 days and new left lower extremity weakness. Probably brain abscess -CT scan shows rontal rim enhancing lesion 3.4 x 3.4 x 3.3 cm -Neurosurgery consult (Dr. Simmons) appreciated: Patient is for debridement, and craniotomy today. -ID consult (Dr. Wilhelm) appreciated: Empiric coverage with Vancomycin 1250mg Q12H, Cefepime 2gm Q8H IV, Flagy 500mg Q8H IV. -Follow wound cultures -Follow blood cultures -Tylenol 650mg PO Q6H PRN for pain Afib -Not on anticoagulation d/t history of GI bleed ?diverticulitis in 2016 -Continue Metoprolol 100mg PO AM, 50mg PO HS -Continue Digoxin 0.25mg PO daily HTN -Continue Metoprolol 100mg PO AM, 50mg PO HS DM -ISS -BGM ACHS FEN -No IV fluids -Follow CMP -Diabetic diet Prophylaxis -Lovenox 40mg subq QD Disposition -Continue care in medical-surgical floor. Visit type - Emergency Visit Emergency Visit: Yes ED Registration Date: 03/27/18 Care time: The patient presented to the Emergency Department on the above date and was hospitalized for further evaluation of their emergent condition. - New Patient This patient is new to me today: Yes Date on this admission: 03/28/18 - Critical Care Critical Care patient: No - Discharge Referral Referred to [facility] No
--- NOTE | 2018-03-28 11:08 | PN ---
Progress Note, Physician History of Present Illness: 62 yr old white man with PMHx melanoma, s/p craniotomy 12/2017, thoracic vetebral surgery 01/2018, AF, HTN, DM, now admitted with fever and weakness. Pt had been undergoing physical therapy at home, but felt too weak to continue. - Current Medication List Current Medications: Active Medications Enoxaparin Sodium (Lovenox -) 40 mg SQ DAILY SE[facility]ST[facility]N Last Admin: 03/27/18 23:14 Dose: Not Given Vancomycin HCl 1,250 mg/ (Dextrose) 250 mls @ 166.667 mls/hr IVPB Q12H SE[place]N; Protocol Potassium Chloride/Dextrose/Sod Cl (D5-1/2ns+20 Meq Kcl -) 20 meq in 1,000 mls @ 75 mls/hr IV ASDIR SEBASTI[facility]N Last Admin: 03/27/18 23:43 Dose: 75 mls/hr Cefepime HCl 2 gm/ Dextrose 100 mls @ 200 mls/hr IVPB Q8H-IV [facility]N; Protocol Metronidazole (Flagyl 500mg Premixed Ivpb -) 500 mg in 100 mls @ 100 mls/hr IVPB Q8H-IV [facility] Insulin Aspart (Novolog Vial Sliding Scale -) 1 vial SQ ACHS SE[facility]N; Protocol Last Admin: 03/28/18 07:08 Dose: Not Given - Objective Vital Signs: Vital Signs Temperature 101.2 F H 03/28/18 09:27 Pulse Rate 104 H 03/28/18 09:27 Respiratory Rate 16 03/28/18 09:27 Blood Pressure 145/79 03/28/18 09:27 O2 Sat by Pulse Oximetry (%) 98 03/28/18 08:00 Eyes: Yes: WNL, Conjunctiva Clear, EOM Intact HENT: Yes: WNL, Atraumatic, Normocephalic Neck: Yes: WNL, Supple, Trachea Midline Cardiovascular: Yes: Pulse Irregular, S1, S2 Respiratory: Yes: WNL, Regular, CTA Bilaterally Gastrointestinal: Yes: WNL, Normal Bowel Sounds Genitourinary: Yes: WNL Musculoskeletal: Yes: WNL Extremities: Yes: WNL Edema: No Integumentary: Yes: WNL Neurological: Yes: WNL, Alert, Oriented ...Motor Strength: WNL Psychiatric: Yes: WNL Labs: CBC, BMP 03/28/18 07:10 03/28/18 07:10 INR, PTT INR 1.18 (0.83-1.09) H 03/28/18 07:10 Assessment/Plan Problems (1) Anemia Code(s): D64.9 - ANEMIA, UNSPECIFIED Qualifiers: Anemia type: unspecified type Qualified Code(s): D64.9 - Anemia, unspecified (2) Atrial fibrillation Assessment/Plan: On metoprolol bid at home. Not on anticoagulant (?due to prior GI bleed). Normal LVEF; mild-moderate LA size;mild MR and TR by 2016 ECHO; will repeat. Code(s): I48.91 - UNSPECIFIED ATRIAL FIBRILLATION Qualifiers: Atrial fibrillation type: unspecified Qualified Code(s): I48.91 - Unspecified atrial fibrillation (3) COPD (chronic obstructive pulmonary disease) Code(s): J44.9 - CHRONIC OBSTRUCTIVE PULMONARY DISEASE, UNSPECIFIED (4) Melanoma Assessment/Plan: f/u with oncologist Code(s): C43.9 - MALIGNANT MELANOMA OF SKIN, UNSPECIFIED (5) Sepsis Code(s): A41.9 - SEPSIS, UNSPECIFIED ORGANISM (6) Weakness Code(s): R53.1 - WEAKNESS (7) Scalp wound Assessment/Plan: s/p redo craniotomy 01/2018; now with fever (101 F at home this morning, per pt' s ) and yellowish discharge from surgical site. Cultures; antibiotics; antipyretics. s/p debridement F/u with neurosurgeon. Code(s): S01.00XA - UNSPECIFIED OPEN WOUND OF SCALP, INITIAL ENCOUNTER
--- NOTE | 2018-03-28 11:23 | CONS ---
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 He was admitted to the hospital on March 27, 2018 with a 1 day history of fever and worsening generalized weakness. He had undergone craniotomies at [facility] in December 2017. He has melanoma with brain metastasis. He has an Ommaya catheter. He reports fever and drainage from the craniotomy wound. Neurosugeon was contacted and the patient was started on amoxicillin. According to the notes, the drainage improved; however, now he was admitted with a 1 day history of fever and drainage from the surgical site. He was seen in the emergency room where a CAT scan of the head was performed. It showed right frontal vasogenic edema with mild midline displacement, a nonspecific rim enhancing lesion in the right frontal lobe representing either a subdural collection, versus an intraparenchymal lesion. The findings were consistent with possible abscess, versus neoplastic disease. He was seen in consultation by Neurosurgery. An MRI was obtained. Official report is pending. However, according to Dr. Simmons there is a fluid collection with peripheral enhancement, which appears to connect with the subdural space with mild mass effect, probable brain abscess. The patient is to be taken to the operating room today for a craniotomy, bone flap and Ommaya reservoir removal and abscess debridement. PAST MEDICAL HISTORY: Positive for stage IV melanoma, history of craniotomy, chemotherapy and radiation, atrial fibrillation, COPD, hypertension, hyperlipidemia, diabetes mellitus. PAST SURGICAL HISTORY: As above. Thoracic vertebral surgery, left nephrectomy, cholecystectomy, bilateral total hip replacement, total knee replacement. ALLERGIES: TO CODEINE AND MORPHINE. MEDICATIONS: Metformin, Symbicort, Toprol, Neurontin, Lanoxin, Protonix. SOCIAL HISTORY: He lives at home with family, former smoker. LABORATORY DATA: White count 7.1, hematocrit 34.6, platelet count 153. Creatinine 0.7. Chest x-ray negative for acute infiltrate. PHYSICAL EXAMINATION: General: On exam, he is awake and alert, ambulatory, in no acute distress. Vitals: Temperature 101.2, blood pressure 145/79, pulse 104 regular, respirations 18 per minute. HEENT: Sclera anicteric. Craniotomy wound no drainage noted. Heart: Sounds S1, S2. Lungs: Clear bilaterally. Abdomen: Soft, no tenderness elicited, no mass, rebound or rigidity. Extremities: Negative for edema. IMPRESSION: A 62-year-old male with stage IV melanoma with brain metastasis admitted with fever, craniotomy wound drainage. Imaging reveals enhancing right frontal lesion; brain abscess, versus neoplasm. Patient for craniotomy/debridement in OR today. Pending cultures, empiric antibiotic coverage with vancomycin, cefepime and Flagyl. Further recommendations pending culture results. Will follow. Thank you for the kind referral. ANN REYNA M.D. [id number]
[2018-03-28] MEDS ORDERED: CEFEPIME 2 GM in DEXTROSE 5%-WATER 100 ML IVPB SCH (11:30)
[2018-03-28 11:43] LABS: PLATELET ESTIMATE ADEQUATE
[2018-03-28] MEDS ORDERED: BACITRACIN 50,000 UNITS VIAL TP ONE (12:01)
[2018-03-28] MEDS ORDERED: ONDANSETRON 4 MG/2 ML VIAL IVPUSH PRN ×4 (12:28→13:56)
[2018-03-28] MEDS ORDERED: D5-NS + 20 MEQ KCL - 20 MEQ/1,000 ML INFUS.BAG IV SCH ×2 (12:30→13:56)
[2018-03-28] MEDS ORDERED: NEOSTIGMINE METHYLSULFATE 0.5 MG/ML - 10 ML MDV ONE (12:36)
--- NOTE | 2018-03-28 12:37 | OP ---
Operative Note - Note: Operative Date: 03/28/18 Pre-Operative Diagnosis: Fever, post-craniotomy, purulent drainage Operation: R frontal craniectomy, debridement of abscess, excision of firbotic tissues, removal of Ommaya reservoir/catheter, CSF sampling from Ommaya, microdissection Findings: Fibrotic resection cavity stewart, purulent parenchymal fluids, CSF appears clear Surgeon: Elias Simmons Multiple Effect Evaporator Operator: Lazaro Bauer Anesthesiologist/CHIEF LIBRARIAN BRANCH: Antoni Benoit Anesthesia: General Specimens Removed: skin purulent tissue, CSF, resection cavity stewart - no tumor ; cloudy parenchymal fluid gram stain- gram + bacilli; Ommaya reservoir and ventricular catheter, skull flap Estimated Blood Loss (mls): 200 Operative Report Dictated: Yes
[2018-03-28] MEDS ORDERED: GLYCOPYRROLATE 0.2 MG/1 ML VIAL ONE ×2 (12:46)
[2018-03-28] MEDS ORDERED: AMPICILLIN SODIUM 250 MG VIAL IVPB SCH (13:00)
--- NOTE | 2018-03-28 13:26 | SURG ---
Surgery Advisor To Command In Combat Note Advisor To Command In Combat: Lazaro Bauer PA-C (Suzy) Date of Service: 03/28/18 Diagnosis: Fever, post-craniotomy, purulent drainage Procedure: R frontal craniectomy, debridement of abscess, excision of firbotic tissues, removal of Ommaya reservoir/catheter, CSF sampling from Ommaya, microdissection Placement of tinajero catheter in OR by PA I was present for the entirety of the operative procedure. For further detail, please refer to operative report. Visit type - Case Type Case Type: ED Admission - Emergency Emergency Visit: No - New patient This patient is new to me today: Yes Date on this admission: 03/28/18 - Critical Care Critical Care patient: No
[2018-03-28] MEDS ORDERED: LACTATED RINGERS SOLUTION 1,000 ML IV SCH ×2 (13:30→13:56)
[2018-03-28] MEDS ORDERED: ACETAMINOPHEN INJECTION 100 ML IVPB ONE (13:32)
[2018-03-28] MEDS ORDERED: DOCUSATE SODIUM 100 MG CAPSULE (FP) PO SCH (14:00)
[2018-03-28] MEDS ORDERED: AMPICILLIN SODIUM 2 GM VIAL IVPB ONE (14:20)
[2018-03-28 14:21] LABS: GLUCOSE,CSF 103 mg/dL (40-70)
--- NOTE | 2018-03-28 15:14 | OP ---
DATE OF OPERATION: 03/28/2018 PREOPERATIVE DIAGNOSES: 1. Status post recent right frontal craniotomy. 2. Subcutaneous and deep brain infection. 3. Diabetes. POSTOPERATIVE DIAGNOSES: 1. Status post recent right frontal craniotomy. 2. Subcutaneous and deep brain infection. 3. Diabetes. ATTENDING SURGEON: Elias Simmons MD DISTILLERY LABORER: NATHAN Londono ESTIMATED BLOOD LOSS: 200 mL. ANESTHESIA: General endotracheal. ANESTHESIOLOGIST: Antoni Benoit MD FINDINGS: 1. Subcutaneous and brain parenchymal purulent liquid with Gram stain consistent with gram-positive bacilli. 2. Fibrotic right frontal parenchymal tumor wall. INDICATION: The patient is a 62-year-old male with history of stage IV melanoma with metastasis to the right frontal lobe, status post prior radiation and chemotherapy as well as craniotomy for tumor debulking, who underwent repeat craniotomy for placement of Ommaya reservoir and biopsy at [facility]. The patient presents with purulent drainage, fever, and headache. CT scan and MRI demonstrating enhancing parenchymal lesions in the right frontal lobe with associated edema. Because of the patient's MRI findings and his clinical presentation, he is consented for right frontal craniotomy, debridement, Ommaya reservoir removal, including risks of general anesthesia. The patient understands the indication for the procedure, procedure in detail, risks and benefits and alternatives for treatment of his condition, and wished to proceed. No guarantees given for a favorable outcome. The patient has been on coverage with vancomycin and cefepime per Infectious Disease. PROCEDURES: 1. Right frontal craniectomy and removal of plating/screw system as well as the skull flap for debulking of resection cavity wall ([id number]). 2. Microsurgical dissection with operative microscope and microsurgical techniques (38767). 3. Removal of Ommaya reservoir and ventricular catheter ([id number]). PROCEDURE IN DETAIL: After patient was taken to the operating room, he was placed in supine position. After general anesthesia was induced and appropriate lines were placed, a Otero catheter was also inserted. The head was secured in a Pascal horseshoe with head turned to the left. The right frontotemporal region was clipped and then cleaned with alcohol and prepped with Betadine. After the patient was sterile prepped and draped, a prior incision was used. Moderate degree of bleeding was noted and hemostasis was obtained with monopolar followed by bipolar electrocautery. The scalp was undermined to facilitate closure later on. The scalp was opened from anterior to posterior because the purulent wound draining was from the posterior aspect of the scalp incision. The horseshoe-shaped incision was opened and a swab culture was obtained posteriorly. There was no meredith pus under the scalp flap. Rosario clips were applied. The scalp flap was secured with fish hooks and the prior craniotomy bone flap as well as the cranial plating system were skeletonized. The screws on the outside portion of the skull were removed, and the craniotomy bone flap was mobilized with periosteal elevator. There was no dura covering the brain. The craniotomy bone flap was removed. The cortical brain surface was slightly dusky in appearance and there was white cloudy fluid in the resection cavity. Fluid was sent for Gram stain and culture and Gram stain shows gram-positive bacilli. At this point, the wound was irrigated with saline first, and then antibiotic containing saline. CSF sample was previously taken from the Ommaya reservoir and CSF smaple was sent for culture and gram stain. With the surrounding purulent fluid the reservoir and ventricular catheter were both removed. The tumor resection wall was explored, and operative microscope was needed to provide both illumination and magnification. Microsurgical techniques were utilized. The very fibrotic tumor stewart were resected with bipolar electrocautery and pituitary rongeur. Frozen section only shows reactive and possible infectious tissues but no tumor. A good resection was accomplished. After resection was completed, edematous brain tissue was noted. Hemostasis was obtained with bipolar electrocautery. The wound at this point was irrigated with copious amount of antibiotic irrigation. A layer of Surgicel was laid on the resection cavity. A piece of 3 x 3-inch DuraGen was laid on top of the cortical brain surface after a large piece of Surgicel was laid on the cortical surface. Hemostasis was obtained with bipolar electrocautery at this point. Because of the infected fluid noted in the parenchyma, the skull flap could not be replaced. At this point, the scalp was closed as a single layer with interrupted vertical mattress suture with 3-0 nylon suture material. Xeroform, 4 x 4, and sterile head wrap was applied. The patient tolerated the procedure well and was extubated in the operating room. He was bilateral upper and lower extremities while in recovery. His examination is unchanged. The intraoperative findings were communicated with the patient as well as the patient's family in the waiting room. All needle and lap counts were correct. The OR timeout procedure was followed. The patient received 1 dose of 1 g vancomycin prior to the incision. The patient also took his morning beta vannessa prior to surgery. ELIAS SIMMONS M.D. PETERSON/[id number] MTDD
--- NOTE | 2018-03-28 15:19 | PN ---
Teaching Attending Note Name of Resident: Shahnaz Smith ATTENDING PHYSICIAN STATEMENT I saw and evaluated the patient. I reviewed the resident's note and discussed the case with the resident. I agree with the resident's findings and plan as documented. SUBJECTIVE: patient seen at 9 am before surgery. at that time , he had nausea , and vomiting. felt sick and tired. had ROBERTS . no change in vision. OBJECTIVE: NAD , Awake , alert , pleasant and cooperative HEENT: round equal pupils , reactive to light , MMM, no facial droop. surgical scar on scalp with small opening and purulent drainage . CC: RRR. no MRG Lungs: CTAB anteriorly . pt could not turn Abd: sfot, NT, ND , NL BS Ext: no edema NEuro : round equal reactive pupils, no facial droop. tongue and uvula at mid line. strength 5/5 in R upper and lower extremitie, proximally and distally. LUE strength 5/5 at shoulder , elbow and wrist . LLE : 4/5 hip flexion, knee flexion and extention . 4/5 plantar flexion ASSESSMENT AND PLAN: 62 year-old man with a PMH of metastatic melanoma , HTN, afib, NIDDM, adrenal insufficiency, COPD, HLP, nephrectomy, metastatic melanoma s/p cracneotomy 5 years ago, s/p re-do craniotomy 01/24 fro fluid collection, and Ommaya cath placement, T7-8 disc herniation s/p spinal sx in 02/24 , who presented with fever and purulent drainage from scalp incision site. He was found to have R frontal collection 1- R frontal abscess : s/p craniotomy, debridement, and drainage. imaging reviewed. wound G stain with G+ bacilli - Abx - neuro checks - appreciate Dr. Simmons input - follow intra-op cx - follow blood cx - vanco trough. monitor level closely as has h/o nephrectomy. Crcl 127%, cont with current dosing - hold chemical DVT px until safe per neuro 2- H/o A fib: in sinus rhythm on EKG. - cont home dig and toprol - will confirm meds. - not on AC, but was in past. will investigate. any way , now just got craniotomy, no Ac 3- H/o adrenal insufficiency: takes 5 mg in am and 2.5 in evening - per dose did not need to be increased with previous surgeries - will cont current dose and will ask Endocrine advise, to avoid adrenal crisis 4- DM: hole prandin and metformin, and cont SSI 5- h/o metastatic melanoma: most recent fluid aspiration from R frontal area was neg for malignancy per . DVT px , when safe per neuro surgery
[2018-03-28] MEDS ORDERED: predniSONE 10 MG TABLET (UD) PO ONE (15:38)
--- NOTE | 2018-03-28 15:45 | CONSULT ---
Consultation: REQUESTING PROVIDER: CONSULT REQUEST: We have been asked to medically evaluate this patient for POD 0 for craniotomy. HISTORY OF PRESENT ILLNESS: Patient is a 62 y/o male with a history of afib, DM, HTN, stage 4 melanoma, nephrectomy for metastasis, and 2 craniotomies the most recent being 01/24 who is admitted to the ICU POD 0 for R frontal craniotomy. Patient came to the ED with leakage of fluid from his last craniotomy site and a fever. Brain MRI showed a fluid collection. Dr. Simmons took patient to OR today for R frontal craniotomy, abscess debridment, excision of fibrotic tissue, removal of catheter and CSF sampling. Patient had previous surgeries at [facility] and follows up at [facility] for his treatment of melanoma. He does not receive treatment for the melanoma, but has CT scans every 3 months. Patient currently denies any headache, blurry vision, chest pain, shortness of breath, fever, constipation, or nausea. REVIEW OF SYSTEMS: CONSTITUTIONAL: Absent: fever, chills, diaphoresis, generalized weakness, malaise, loss of appetite, weight change HEENT: Absent: rhinorrhea, nasal congestion, throat pain, throat swelling, difficulty swallowing, mouth swelling, ear pain, eye pain, visual changes CARDIOVASCULAR: Absent: chest pain, syncope, palpitations, irregular heart rate, lightheadedness , peripheral edema RESPIRATORY: Absent: cough, shortness of breath, dyspnea with exertion, orthopnea, wheezing, stridor, hemoptysis GASTROINTESTINAL: Absent: abdominal pain, abdominal distension, nausea, vomiting, diarrhea, constipation, melena, hematochezia GENITOURINARY: Absent: dysuria, frequency, urgency, hesitancy, hematuria, flank pain, genital pain MUSCULOSKELETAL: Absent: myalgia, arthralgia, joint swelling, back pain, neck pain SKIN: Absent: rash, itching, pallor HEMATOLOGIC/IMMUNOLOGIC: Absent: easy bleeding, easy bruising, lymphadenopathy, frequent infections ENDOCRINE: Absent: unexplained weight gain, unexplained weight loss, heat intolerance, cold intolerance NEUROLOGIC: Absent: headache, focal weakness or paresthesias, dizziness, unsteady gait, seizure, mental status changes, bladder or bowel incontinence PSYCHIATRIC: Absent: anxiety, depression, suicidal or homicidal ideation, hallucinations. PHYSICAL EXAMINATION Vital Signs Temperature 97.4 F L 03/28/18 14:58 Pulse Rate 95 H 03/28/18 14:58 Respiratory Rate 18 03/28/18 14:58 Blood Pressure 102/74 03/28/18 14:58 O2 Sat by Pulse Oximetry (%) 98 03/28/18 14:20 GENERAL: Awake, alert, and fully oriented, in no acute distress. HEAD: head dressing EYES: Pupils equal, round and reactive to light, extraocular movements intact, LUNGS: Breath sounds equal, clear to auscultation bilaterally. No accessory muscle use. HEART: Regular rate and rhythm, normal S1 and S2 without murmur, rub or gallop. ABDOMEN: Soft, nontender, not distended, normoactive bowel sounds LOWER EXTREMITIES: warm, well-perfused. No calf tenderness. No peripheral edema. NEUROLOGICAL: sensation intact, 5/5 dorsal and plantar flexion, UE ROm intact PSYCHIATRIC: Cooperative. Good eye contact. Appropriate mood and affect. SKIN: Warm, dry, normal turgor, no rashes or lesions noted. CBCD WBC 7.1 K/mm3 (4.0-10.0) 03/28/18 07:10 RBC 3.55 M/mm3 (4.00-5.60) L 03/28/18 07:10 Hgb 11.6 GM/dL (11.7-16.9) L 03/28/18 07:10 Hct 34.6 % (35.4-49) L 03/28/18 07:10 MCV 97.5 fl (80-96) H 03/28/18 07:10 MCHC 33.7 g/dl (32.0-35.9) 03/28/18 07:10 RDW 16.5 % (11.9-15.9) H 03/28/18 07:10 Plt Count 153 K/MM3 (134-434) 03/28/18 07:10 MPV 7.2 fl (7.5-11.1) L 03/28/18 07:10 CMP Sodium 137 mmol/L (136-145) 03/28/18 07:10 Potassium 3.5 mmol/L (3.5-5.1) 03/28/18 07:10 Chloride 98 mmol/L (98-107) 03/28/18 07:10 Carbon Dioxide 29 mmol/L (21-32) 03/28/18 07:10 Anion Gap 10 MMOL/L (8-16) 03/28/18 07:10 BUN 9 mg/dL (7-18) 03/28/18 07:10 Creatinine 0.7 mg/dL (0.55-1.3) 03/28/18 07:10 Creat Clearance w eGFR > 60 (>60) 03/28/18 07:10 Calcium 8.0 mg/dL (8.5-10.1) L 03/28/18 07:10 Total Bilirubin 1.0 mg/dL (0.2-1) 03/28/18 07:10 AST 17 U/L (15-37) 03/28/18 07:10 ALT 35 U/L (13-61) 03/28/18 07:10 Alkaline Phosphatase 93 U/L (45-117) 03/28/18 07:10 Total Protein 5.7 g/dl (6.4-8.2) L 03/28/18 07:10 Albumin 2.6 g/dl (3.4-5.0) L 03/28/18 07:10 Microbiology 03/28/18 11:38 Head Gram Stain - Final 03/28/18 00:00 Nasopharyngeal Swab Influenza Types A,B Antigen - Final 03/28/18 00:00 Nasopharyngeal Swab - Final Active Medications Chlorhexidine Gluconate (Hibiclens For Decolonization -) 1 applic TP HS [place]N Chlorhexidine Gluconate (Hibiclens For Decolonization -) 1 applic TP HS [place] Digoxin (Lanoxin -) 0.25 mg PO DAILY [facility] Docusate Sodium (Colace -) 100 mg PO TID [place] Enoxaparin Sodium (Lovenox -) 40 mg SQ DAILY [facility] Fentanyl (Sublimaze Injection -) 50 mcg IVPUSH [id number] PRN PRN Reason: PAIN-PACU ORDER X 4 DOSES ONLY Stop: 03/28/18 21:00 Ampicillin Sodium 2 gm/ Sodium (Chloride) 100 mls @ 200 mls/hr IVPB Q4H-IV [facility] Cefepime HCl 2 gm/ Dextrose 100 mls @ 200 mls/hr IVPB Q8H-IV [facility]ST[facility]N; Protocol Metronidazole (Flagyl 500mg Premixed Ivpb -) 500 mg in 100 mls @ 100 mls/hr IVPB Q8H-IV [facility] Lactated Ringer's (Lactated Ringers Solution) 1,000 mls @ 125 mls/hr IV ASDIR [facility]BA[place]N Vancomycin HCl 1,250 mg/ (Dextrose) 250 mls @ 166.667 mls/hr IVPB Q12H [facility]ST[facility]N; Protocol Insulin Aspart (Novolog Vial Sliding Scale -) 1 vial SQ ACHS SE[facility]N; Protocol Metoprolol Succinate (Toprol Xl -) 50 mg PO HS [place]N Metoprolol Succinate (Toprol Xl -) 100 mg PO AM [place] Mupirocin (Bactroban Ointment (For Decolonization) -) 1 applic NS BID [place]N Stop: 04/02/18 21:59 Mupirocin (Bactroban Ointment (For Decolonization) -) 1 applic NS BID [place]ST[place]N Stop: 04/02/18 21:59 Ondansetron HCl (Zofran Injection) 4 mg IVPUSH Q6H PRN PRN Reason: NAUSEA Ondansetron HCl (Zofran Injection) 4 mg IVPUSH Q6H PRN PRN Reason: NAUSEA AND/OR VOMITING Stop: 03/29/18 06:00 Pantoprazole Sodium (Protonix Iv) 40 mg IVPUSH DAILY [facility] ASSESSMENT/PLAN: Patient is a 62 y/o male with a history of afib, stage 4 melanoma, nephrectomy for met, and 2 craniotomies the most recent being 01/24 who is POD 0 for R frontal craniotomy, abscess debridment, excision of fibrotic tissue, removal of catheter and CSF sampling. Neuro R Frontal Craniotomy - R frontal craniotomy, abscess debridment, excision of fibrotic tissue, removal of catheter and CSF sampling by Dr. Simmons - patient bone was not replaced, soft top at 3.5 x 3.5 site of incision, expected drainage from this surgery - discussed with NATHAN Cherry - past brain MRI: showed frontal lesion, because of recent craniotomy in 01/24 , worry for abscess/infection - CSF glucose increased at 103 - f/u repeat head CT tomorrow - f/u cx of CSF sampling, cx of catheter tip, and cx of bone - f/u bcx, ucx, nasopharyngeal swap - patient refusing keppra for seizure ppx - continue neuro checks hourly - keep head of bed elevated Cardio afib - continue digoxin .24 mg po daily - metoprolol 100 mg am, 50 mg hs - rate and rhythm controlled, EKG showed no av block, no st segment changes Pulm s/p surgery - incentive spirometer q 1h - CXR: no evidence of acute process Nephro s/p nephrectomy from metastasis - BUN/Cr stable - monitor closely - per ID continue antibiotics GI - ppx pantoprazole - bowel regimen: docusate - nausea: Zofran 4mg q6h prn QTC 410 Infectious Disease R frontal abscess - Ampicilin, Metronidazole - Cefepime - Vanc, Zosyn - Vanc trough for am - f/u Dr. Wilhelm - f/u cultures - if fevers, can give tylenol Endocrine DM - continue SS adrenal insufficency - 5mg in am and 2.5 mg in pm - f/u morning cortisol level - f/u Dr. Hernandes Hematology DVT ppx - SCD's for now - can restart lovenox tomorrow per surgery FEN - clear liquids as tolerated - LR @ 125 Dispo: We will continue to follow the patient. Thank you for this consultative opportunity. Visit type - Emergency Visit Emergency Visit: No - New Patient This patient is new to me today: Yes Date on this admission: 03/28/18 - Critical Care Critical Care patient: Yes Total Critical Care Time (in minutes): 45 Critical Care Statement: The care of this patient involved high complexity decision making to prevent further life threatening deterioration of the patient 's condition and/or to evaluate & treat vital organ system(s) failure or risk of failure.
[2018-03-28] MEDS ORDERED: HYDROCORTISONE SOD SUCCINATE 100 MG/2 ML VIAL IVPB ONE (15:55)
[2018-03-28] MEDS ORDERED: PANTOPRAZOLE 40 MG TABLET (FP) PO SCH (16:00)
[2018-03-28] MEDS ORDERED: PATIENT'S OWN MEDICATION (NON-FORMULARY) (Levalbuterol Tartrate [Xopenex Hfa] 15 GM) IH PRN (16:00)
[2018-03-28] MEDS: GABAPENTIN 300 MG CAPSULE (FP) PO SCH ×2 (16:22→21:18)
[2018-03-28] MEDS ORDERED: PT OWN MED DRAWER 7, Y5N ONE ×3 (16:50→20:25)
[2018-03-28] MEDS: DOCUSATE SODIUM 100 MG CAPSULE (FP) PO SCH ×2 (16:52→21:18)
[2018-03-28] MEDS: ASCORBIC ACID 250 MG TABLET (FP) PO SCH (17:48)
--- NOTE | 2018-03-28 17:48 | PN ---
Progress Note (short form) - Note Progress Note: NEUROSURGERY POD #1 Seen in PACU earlier Minimal H/A PE: AF, VSS CN- nonfocal; motor- L LE 4+-5/5 WBC 7.1, Hgb 11.6, Cr 0.7 Gram stain- gram positive baccili, PMN's Brain abscess: s/p craniectomy, debridement, Ommaya removal Stable neurologically Head CT in AM Cont iv abc Care d/w Dr Wilhelm intra-op findings d/w patient and family
--- NOTE | 2018-03-28 18:00 | CONSULT ---
Consult Consult Specialty:: Endocrinology Referred by:: Dileep Valenzuela Reason for Consultation:: Adrenal Insufficiency - History of Present Illness Chief Complaint: leakage from Craniotomy site History of Present Illness: This is a 62 y/o male with h/o Afib, T2DM, HTN, stage 4 melanoma, nephrectomy for metastasis, Adrenal insufficiency and 2 craniotomies the most recent being who is admitted to the ICU POD 0 for R frontal craniotomy. Patient came to the ED with leakage of fluid from his last craniotomy site and a fever. Brain MRI showed a fluid collection. Dr. Simmons took patient to OR today for R frontal craniotomy, abscess debridment, excision of fibrotic tissue, removal of catheter and CSF sampling. Patient had previous surgeries at [facility] and follows up at [facility] for his treatment of melanoma. He does not receive treatment for the melanoma, but has CT scans every 3 months. Patient currently denies any headache, blurry vision, chest pain, shortness of breath, fever, constipation, or nausea. Pt referred for management of Adrenal insufficiency. Pt in bed in NAD. On Prednisone 5 +2.5mg at home. 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) Cardio/Vascular: Yes: AFIB, HTN Pulmonary: Yes: Asthma, COPD Gastrointestinal: Yes: Other (Colitis) Renal/: Yes: Other (L Nephrectomy) Musculoskeletal: Yes: Chronic low back pain Endocrine: Yes: Diabetes Mellitus, Other (Adrenal Insufficiency) Dermatology: Yes: Melanoma - Past Surgical History Past Surgical History: Yes: Cholecystectomy - Alcohol/Substance Use Hx Alcohol Use: No - Smoking History Smoking history: Former smoker Have you smoked in the past 12 months: No Aproximately how many cigarettes per day: 0 If you are a former smoker, when did you quit?: 17yrs ago - Social History Usual Living Arrangement: With Spouse ADL: Independent 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 History of Recent Travel: No Home Medications - Allergies Allergies/Adverse Reactions: Allergies Allergy/AdvReac Type Severity Reaction Status Date / Time codeine [Codeine] AdvReac Severe abd pain Verified 02/15/18 16:52 morphine AdvReac Severe Verified 02/15/18 16:52 - Home Medications Home Medications: Ambulatory Orders Budesonide/Formoterol Fumarate [Symbicort 160-4.5 Mcg Inhaler] 1 ih IH BID 11/07 Metformin HCl [Metformin HCl ER] 500 mg PO BID 12/09/15 Metoprolol Succinate [Toprol XL -] 50 mg PO HS 12/09/15 Ascorbic Acid [Vitamin C -] 100 mg PO DAILY 04/09/16 Ferrous Sulfate [Feosol] 325 mg PO BID 04/09/16 Gabapentin [Neurontin] 600 mg PO TID 04/09/16 Metoprolol Succinate [Toprol XL -] 100 mg PO AM 04/09/16 Digoxin [Lanoxin -] 0.25 mg PO DAILY #30 tablet 04/12/16 Pantoprazole Sodium [Protonix -] 40 mg PO DAILY 10/18/16 Prednisone 5 mg PO AM 10/18/16 Repaglinide [Prandin -] 1 mg PO DAILY 10/18/16 predniSONE [Deltasone -] 2.5 mg PO HS 10/18/16 Levalbuterol Tartrate [Xopenex Hfa] 15 gm IH PRN 02/15/18 Family Disease History - Family Disease History Family Disease History: Diabetes: Father, CA: Son (melanoma) Review of Systems - Review of Systems Constitutional: reports: No Symptoms Eyes: reports: No Symptoms HENT: reports: No Symptoms Neck: reports: No Symptoms Cardiovascular: reports: No Symptoms Respiratory: reports: No Symptoms Gastrointestinal: reports: No Symptoms Genitourinary: reports: No Symptoms Musculoskeletal: reports: No Symptoms Integumentary: reports: No Symptoms Endocrine: reports: No Symptoms Physical Exam Vital Signs: Vital Signs Temperature 97.4 F L 03/28/18 14:58 Pulse Rate 95 H 03/28/18 14:58 Respiratory Rate 18 03/28/18 14:58 Blood Pressure 102/74 03/28/18 14:58 O2 Sat by Pulse Oximetry (%) 98 03/28/18 14:20 Constitutional: Yes: No Distress, Calm Eyes: Yes: Conjunctiva Clear, EOM Intact HENT: Yes: Other (Dressing over the head) Neck: Yes: Supple, Trachea Midline Cardiovascular: Yes: Pulse Irregular Respiratory: Yes: Regular, CTA Bilaterally Gastrointestinal: Yes: Normal Bowel Sounds, Soft Musculoskeletal: Yes: WNL Extremities: Yes: WNL Edema: No Neurological: Yes: Alert, Oriented, Other (Grossly no focal deficit) Labs: CBC, BMP 03/28/18 07:10 03/28/18 07:10 Imaging - Results MRI: Report Reviewed Assessment/Plan AP S/P Craniotomy ? abscess Melanoma A Fib S/P Nephrectomy Adrenal Insufficiency Start stress dose glucocorticoid Hydrocortison 50mg Iv stat and Q8 hrs If stable will do rapid taper after 24 hrs Will f/u
[2018-03-28] MEDS ORDERED: HYDROmorphone HCl 2 MG/ML VIAL IVPUSH PRN ×2 (18:11→18:23)
[2018-03-28] MEDS: CEFEPIME 2 GM in DEXTROSE 5%-WATER 100 ML IVPB SCH (21:15)
[2018-03-28] MEDS: AMPICILLIN - 2 GM in SODIUM CHLORIDE 100 ML IVPB SCH ×2 (21:15→23:30)
[2018-03-28] MEDS: BUDESONIDE/FORMETEROL FUMARATE 160/4.5 mcg INHALER IH SCH (21:17)
[2018-03-28] MEDS: FERROUS SO4 325 MG TABLET (FP) PO SCH (21:19)
[2018-03-28] MEDS: MUPIROCIN 2% TOPICAL OINTMENT FOR DECOLONIZATION NS SCH (21:20)
[2018-03-28] MEDS ORDERED: MUPIROCIN 2% TOPICAL OINTMENT FOR DECOLONIZATION NS SCH (22:00)
[2018-03-28] MEDS: CHLORHEXIDINE GLUCONATE 4% CLEANSER FOR DECOLONIZATION TP SCH ×2 (22:21)
[2018-03-29] MEDS: HYDROCORTISONE SOD SUCCINATE 100 MG/2 ML VIAL IVPUSH SCH ×4 (00:27→17:04)
[2018-03-29] MEDS: CEFEPIME 2 GM in DEXTROSE 5%-WATER 100 ML IVPB SCH ×3 (01:22→17:03)
[2018-03-29] MEDS: AMPICILLIN - 2 GM in SODIUM CHLORIDE 100 ML IVPB SCH ×6 (02:48→21:24)
[2018-03-29] MEDS: GABAPENTIN 300 MG CAPSULE (FP) PO SCH ×3 (06:23→21:25)
[2018-03-29] MEDS: DOCUSATE SODIUM 100 MG CAPSULE (FP) PO SCH ×3 (06:23→21:25)
[2018-03-29] MEDS: INSULIN SLIDING SCALE (NOVOLOG) 1 VIAL SQ SCH ×4 (06:48→21:47)
[2018-03-29 06:50] LABS: ALBUMIN 2.3 g/dl (3.4-5.0); ANION GAP 6 MMOL/L (8-16); BLOOD UREA NITROGEN 14 mg/dL (7-18); CALCIUM 7.8 mg/dL (8.5-10.1); CHLORIDE 103 mmol/L (98-107); CO2 30 mmol/L (21-32); CREATININE 0.9 mg/dL (0.55-1.3); GLUCOSE,RANDOM 278 mg/dL (74-106); MAGNESIUM 1.7 mg/dL (1.8-2.4); PHOSPHOROUS 3.2 mg/dL (2.5-4.9); POTASSIUM 3.7 mmol/L (3.5-5.1); SGOT/AST 18 U/L (15-37); SGPT/ALT 41 U/L (13-61); SODIUM 139 mmol/L (136-145)
[2018-03-29 06:52] LABS: ALK PHOS 82 U/L (45-117); BILIRUBIN,TOTAL 0.7 mg/dL (0.2-1); TOT PROT 5.3 g/dl (6.4-8.2)
[2018-03-29] MEDS ORDERED: MAGNESIUM OXIDE 400 MG TABLET (FP) PO ONE (07:13)
[2018-03-29] MEDS ORDERED: POTASSIUM CHLORIDE TABS 20 MEQ TABLET.ER (FP) PO ONE (07:13)
[2018-03-29 07:39] LABS: BASO % 0.2 % (0-2.0); HEMATOCRIT 31.2 % (35.4-49); HEMOGLOBIN 10.8 GM/dL (11.7-16.9); LYMPH % 4.4 % (8-40); MCH 33.2 pg (25.7-33.7); MCHC 34.5 g/dl (32.0-35.9); MEAN CELL VOLUME 96.1 fl (80-96); MEAN PLT VOLUME 7.6 fl (7.5-11.1); MONO % 2.1 % (3.8-10.2); NEUT % 93.3 % (42.8-82.8); PLATELET COUNT 148 K/MM3 (134-434); RBC 3.25 M/mm3 (4.00-5.60); RDW 16.8 % (11.9-15.9); WHITE BLOOD COUNT 7.3 K/mm3 (4.0-10.0)
[2018-03-29] MEDS: LACTATED RINGERS SOLUTION 1,000 ML IV SCH (08:08)
[2018-03-29] MEDS ORDERED: PT OWN MED DRAWER 7, Y5N ONE ×5 (08:10→21:21)
[2018-03-29] MEDS: ASCORBIC ACID 250 MG TABLET (FP) PO SCH (08:59)
[2018-03-29] MEDS: FERROUS SO4 325 MG TABLET (FP) PO SCH ×2 (09:00→21:25)
[2018-03-29] MEDS: DIGOXIN 0.25 MG TABLET (FP) PO SCH (09:00)
[2018-03-29] MEDS: PANTOPRAZOLE SODIUM 40 MG VIAL IVPUSH SCH (09:02)
[2018-03-29] MEDS: MUPIROCIN 2% TOPICAL OINTMENT FOR DECOLONIZATION NS SCH ×2 (09:05→21:41)
--- NOTE | 2018-03-29 09:14 | PN ---
Physical Exam: SUBJECTIVE: Patient is a 62 y/o male with a history of afib, DM, HTN, stage 4 melanoma, nephrectomy for metastasis, and 2 craniotomies the most recent being 01/24 who is admitted to the ICU POD 1 for R frontal craniotomy. Patient has no complaints overnight, just mentions he has a little double vision this morning. No acute events. OBJECTIVE: Vital Signs Temperature 97.8 F 03/29/18 06:00 Pulse Rate 94 H 03/29/18 09:00 Respiratory Rate 12 03/29/18 08:00 Blood Pressure 120/72 03/29/18 08:00 O2 Sat by Pulse Oximetry (%) 99 03/28/18 21:00 GENERAL: Awake, alert, and fully oriented, in no acute distress. HEAD: head dressing. stiches in place EYES: Pupils equal, round and reactive to light, extraocular movements intact, LUNGS: Breath sounds equal, clear to auscultation bilaterally. No accessory muscle use. HEART: Regular rate and rhythm, normal S1 and S2 without murmur, rub or gallop. ABDOMEN: Soft, nontender, not distended, normoactive bowel sounds LOWER EXTREMITIES: warm, well-perfused. No calf tenderness. No peripheral edema. NEUROLOGICAL: sensation intact, 5/5 dorsal and plantar flexion, UE ROm intact PSYCHIATRIC: Cooperative. Good eye contact. Appropriate mood and affect. SKIN: Warm, dry, normal turgor, no rashes or lesions noted. CBCD WBC 7.3 K/mm3 (4.0-10.0) 03/29/18 05:30 RBC 3.25 M/mm3 (4.00-5.60) L 03/29/18 05:30 Hgb 10.8 GM/dL (11.7-16.9) L 03/29/18 05:30 Hct 31.2 % (35.4-49) L 03/29/18 05:30 MCV 96.1 fl (80-96) H 03/29/18 05:30 MCHC 34.5 g/dl (32.0-35.9) 03/29/18 05:30 RDW 16.8 % (11.9-15.9) H 03/29/18 05:30 Plt Count 148 K/MM3 (134-434) 03/29/18 05:30 MPV 7.6 fl (7.5-11.1) 03/29/18 05:30 CMP Sodium 139 mmol/L (136-145) 03/29/18 05:30 Potassium 3.7 mmol/L (3.5-5.1) 03/29/18 05:30 Chloride 103 mmol/L (98-107) 03/29/18 05:30 Carbon Dioxide 30 mmol/L (21-32) 03/29/18 05:30 Anion Gap 6 MMOL/L (8-16) L 03/29/18 05:30 BUN 14 mg/dL (7-18) 03/29/18 05:30 Creatinine 0.9 mg/dL (0.55-1.3) 03/29/18 05:30 Creat Clearance w eGFR > 60 (>60) 03/29/18 05:30 Calcium 7.8 mg/dL (8.5-10.1) L 03/29/18 05:30 Total Bilirubin 0.7 mg/dL (0.2-1) 03/29/18 05:30 AST 18 U/L (15-37) 03/29/18 05:30 ALT 41 U/L (13-61) 03/29/18 05:30 Alkaline Phosphatase 82 U/L (45-117) 03/29/18 05:30 Total Protein 5.3 g/dl (6.4-8.2) L 03/29/18 05:30 Albumin 2.3 g/dl (3.4-5.0) L 03/29/18 05:30 Microbiology 03/28/18 10:43 Head Gram Stain - Final 03/28/18 13:28 Cerebral Spinal Fluid - Shunt-Csf Gram Stain - Final 03/28/18 11:49 Body Fluid - Other Gram Stain - Final 03/28/18 11:49 Body Fluid - Other Body Fluid Culture - Preliminary 03/28/18 11:49 Body Fluid - Other Gram Stain - Final 03/27/18 15:29 Blood - Peripheral Venous Blood Culture - Preliminary NO GROWTH OBTAINED AFTER 24 HOURS, INCUBATION TO CONTINUE FOR 4 DAYS. 03/27/18 15:20 Blood - Peripheral Venous Blood Culture - Preliminary NO GROWTH OBTAINED AFTER 24 HOURS, INCUBATION TO CONTINUE FOR 4 DAYS. 03/27/18 22:23 Head Gram Stain - Final 03/28/18 11:38 Head Gram Stain - Final Active Medications Ascorbic Acid (Vitamin C -) 250 mg PO DAILY [facility] Last Admin: 03/28/18 17:48 Dose: 250 mg Budesonide/Formoterol Fumarate (Symbicort 160/4.5mcg -) 1 puff IH BID [facility] Last Admin: 03/28/18 21:17 Dose: 1 puff Chlorhexidine Gluconate (Hibiclens For Decolonization -) 1 applic TP HS [facility] Last Admin: 03/28/18 22:21 Dose: 1 applic Chlorhexidine Gluconate (Hibiclens For Decolonization -) 1 applic TP HS [facility] Last Admin: 03/28/18 22:21 Dose: Not Given Digoxin (Lanoxin -) 0.25 mg PO DAILY [facility] Docusate Sodium (Colace -) 100 mg PO TID [facility] Last Admin: 03/29/18 06:23 Dose: 100 mg Ferrous Sulfate (Feosol -) 325 mg PO BID [facility] Last Admin: 03/28/18 21:19 Dose: 325 mg Gabapentin (Neurontin -) 600 mg PO TID [facility] Last Admin: 03/29/18 06:23 Dose: 600 mg Hydrocortisone Sodium Succinate (Solu-Cortef -) 50 mg IVPUSH Q8H-IV [facility] Last Admin: 03/29/18 02:47 Dose: 50 mg Hydromorphone HCl (Dilaudid Vial -) 0.5 mg IVPUSH Q4H PRN PRN Reason: PAIN LEVEL 6-10 Ampicillin Sodium 2 gm/ Sodium (Chloride) 100 mls @ 200 mls/hr IVPB Q4H-IV [facility] Last Admin: 03/29/18 06:24 Dose: 200 mls/hr Cefepime HCl 2 gm/ Dextrose 100 mls @ 200 mls/hr IVPB Q8H-IV [facility]; Protocol Last Admin: 03/29/18 01:22 Dose: 200 mls/hr Metronidazole (Flagyl 500mg Premixed Ivpb -) 500 mg in 100 mls @ 100 mls/hr IVPB Q8H-IV [facility] Last Admin: 03/29/18 01:23 Dose: 100 mls/hr Vancomycin HCl 1,250 mg/ (Dextrose) 250 mls @ 166.667 mls/hr IVPB Q12H [facility]; Protocol Last Admin: 03/28/18 21:16 Dose: 166.667 mls/hr Lactated Ringer's (Lactated Ringers Solution) 1,000 mls @ 75 mls/hr IV ASDIR [facility] Last Admin: 03/29/18 08:08 Dose: 75 mls/hr Insulin Aspart (Novolog Vial Sliding Scale -) 1 vial SQ ACHS [facility]; Protocol Last Admin: 03/29/18 06:48 Dose: 6 units Metoprolol Succinate (Toprol Xl -) 50 mg PO HS [facility] Last Admin: 03/28/18 21:40 Dose: 50 mg Metoprolol Succinate (Toprol Xl -) 100 mg PO AM [facility] Last Admin: 03/29/18 06:24 Dose: 100 mg Mupirocin (Bactroban Ointment (For Decolonization) -) 1 applic NS BID [facility] Stop: 04/02/18 21:59 Last Admin: 03/28/18 21:20 Dose: 1 applic Non-Formulary Medication (Levalbuterol Tartrate [Xopenex Hfa]) 15 gm IH Q4H PRN PRN Reason: SHORTNESS OF BREATH Ondansetron HCl (Zofran Injection) 4 mg IVPUSH Q6H PRN PRN Reason: NAUSEA Pantoprazole Sodium (Protonix Iv) 40 mg IVPUSH DAILY [facility] ASSESSMENT/PLAN: Patient is a 62 y/o male with a history of afib, stage 4 melanoma, nephrectomy for met, and 2 craniotomies the most recent being 01/24 who is POD 1 for R frontal craniotomy, abscess debridment, excision of fibrotic tissue, removal of catheter and CSF sampling. Neuro R Frontal Craniotomy with abscess - R frontal craniotomy, abscess debridment, excision of fibrotic tissue, removal of catheter and CSF sampling by Dr. Simmons - patient bone was not replaced, soft top at 3.5 x 3.5 site of incision, expected drainage from this surgery - discussed with NATHAN Cherry - past brain MRI: showed frontal lesion, because of recent craniotomy in 01/24 , worry for abscess/infection - CSF glucose increased at 103 - f/u cx of CSF sampling, cx of catheter tip, and cx of bone - f/u bcx, ucx, nasopharyngeal swap - head cx: staph coag negative, gram negative fawad, pending organisms - continue neuro checks hourly - keep head of bed elevated - f/u Head CT taken today, discussed case with radiology, will have read later today - nursing called Dr. Simmons and discussed patients vision change Cardio afib - continue digoxin .24 mg po daily - metoprolol 100 mg am, 50 mg hs - rate and rhythm controlled, EKG showed no av block, no st segment changes Pulm s/p surgery - incentive spirometer q 1h - CXR: no evidence of acute process Nephro s/p nephrectomy from metastasis - BUN/Cr stable - monitor closely - per ID continue antibiotics GI - ppx pantoprazole - bowel regimen: docusate - nausea: Zofran 4mg q6h prn QTC 410 Infectious Disease R frontal abscess - Ampicilin, Metronidazole - Cefepime - Zosyn - Vanc level 23- hold Vanc dose - repeat level was 16, continue to hold Vancomycin until trough below [address] Wilhelm - f/u trough level tomorrow - f/u Dr. Wilhelm - f/u cultures - head cx: staph coag negative, gram negative fawad, pending organisms - if fevers, can give tylenol Endocrine DM - continue SS adrenal insufficency - f/u morning cortisol level - Dr. Hernandes: 50 mg hydrochortisone q8h, can taper down after 24 hours Hematology DVT ppx - Heparin TID - SCD's FEN - diabetic diet - LR @ 125 Dispo: discuss with Dr. Simmons when patient can be moved to floors Visit type - Emergency Visit Emergency Visit: No - New Patient This patient is new to me today: No - Critical Care Critical Care patient: Yes Total Critical Care Time (in minutes): 45 Critical Care Statement: The care of this patient involved high complexity decision making to prevent further life threatening deterioration of the patient 's condition and/or to evaluate & treat vital organ system(s) failure or risk of failure.
--- NOTE | 2018-03-29 09:28 | PN ---
Progress Note, Physician Chief Complaint: PT A&Ox3; no chest pain or shortness of breath; s/p cranial debridement. History of Present Illness: 62 yr old white man with PMHx melanoma, s/p craniotomy 12/2017, thoracic vetebral surgery 01/2018, PAF, HTN, DM, now admitted with fever and weakness. Pt had been undergoing physical therapy at home, but felt too weak to continue. - Current Medication List Current Medications: Active Medications Ascorbic Acid (Vitamin C -) 250 mg PO DAILY [facility] Last Admin: 03/29/18 08:59 Dose: 250 mg Budesonide/Formoterol Fumarate (Symbicort 160/4.5mcg -) 1 puff IH BID [facility] Last Admin: 03/28/18 21:17 Dose: 1 puff Chlorhexidine Gluconate (Hibiclens For Decolonization -) 1 applic TP HS [facility] Last Admin: 03/28/18 22:21 Dose: 1 applic Chlorhexidine Gluconate (Hibiclens For Decolonization -) 1 applic TP [facility] Last Admin: 03/28/18 22:21 Dose: Not Given Digoxin (Lanoxin -) 0.25 mg PO DAILY [facility] Last Admin: 03/29/18 09:00 Dose: 0.25 mg Docusate Sodium (Colace -) 100 mg PO TID [facility] Last Admin: 03/29/18 06:23 Dose: 100 mg Ferrous Sulfate (Feosol -) 325 mg PO BID [facility] Last Admin: 03/29/18 09:00 Dose: 325 mg Gabapentin (Neurontin -) 600 mg PO TID [facility] Last Admin: 03/29/18 06:23 Dose: 600 mg Hydrocortisone Sodium Succinate (Solu-Cortef -) 50 mg IVPUSH Q8H-IV [facility] Last Admin: 03/29/18 09:00 Dose: 50 mg Hydromorphone HCl (Dilaudid Vial -) 0.5 mg IVPUSH Q4H PRN PRN Reason: PAIN LEVEL 6-10 Ampicillin Sodium 2 gm/ Sodium (Chloride) 100 mls @ 200 mls/hr IVPB Q4H-IV [facility] Last Admin: 03/29/18 06:24 Dose: 200 mls/hr Cefepime HCl 2 gm/ Dextrose 100 mls @ 200 mls/hr IVPB Q8H-IV [facility]; Protocol Last Admin: 03/29/18 08:59 Dose: 200 mls/hr Metronidazole (Flagyl 500mg Premixed Ivpb -) 500 mg in 100 mls @ 100 mls/hr IVPB Q8H-IV [facility] Last Admin: 03/29/18 09:01 Dose: 100 mls/hr Vancomycin HCl 1,250 mg/ (Dextrose) 250 mls @ 166.667 mls/hr IVPB Q12H [facility]; Protocol Last Admin: 03/28/18 21:16 Dose: 166.667 mls/hr Lactated Ringer's (Lactated Ringers Solution) 1,000 mls @ 75 mls/hr IV ASDIR [facility] Last Admin: 03/29/18 08:08 Dose: 75 mls/hr Insulin Aspart (Novolog Vial Sliding Scale -) 1 vial SQ ACHS [facility]; Protocol Last Admin: 03/29/18 06:48 Dose: 6 units Metoprolol Succinate (Toprol Xl -) 50 mg PO HS [facility] Last Admin: 03/28/18 21:40 Dose: 50 mg Metoprolol Succinate (Toprol Xl -) 100 mg PO AM [facility] Last Admin: 03/29/18 06:24 Dose: 100 mg Mupirocin (Bactroban Ointment (For Decolonization) -) 1 applic NS BID [facility] Stop: 04/02/18 21:59 Last Admin: 03/29/18 09:05 Dose: 1 applic Non-Formulary Medication (Levalbuterol Tartrate [Xopenex Hfa]) 15 gm IH Q4H PRN PRN Reason: SHORTNESS OF BREATH Ondansetron HCl (Zofran Injection) 4 mg IVPUSH Q6H PRN PRN Reason: NAUSEA Pantoprazole Sodium (Protonix Iv) 40 mg IVPUSH DAILY [facility] Last Admin: 03/29/18 09:02 Dose: 40 mg - Objective Vital Signs: Vital Signs Temperature 97.8 F 03/29/18 06:00 Pulse Rate 94 H 03/29/18 09:00 Respiratory Rate 12 03/29/18 08:00 Blood Pressure 120/72 03/29/18 08:00 O2 Sat by Pulse Oximetry (%) 99 03/28/18 21:00 Constitutional: Yes: Calm Eyes: Yes: WNL HENT: Yes: Other (scalp covered with "turban" bandage; sutures withou drainage) Neck: Yes: WNL Cardiovascular: Yes: S1, S2 Respiratory: Yes: Regular Gastrointestinal: Yes: Soft ...Rectal Exam: Yes: Deferred Genitourinary: No: Anuria Musculoskeletal: Yes: Muscle Weakness Extremities: Yes: Cool Edema: No Peripheral Pulses WNL: Yes Integumentary: Yes: Other Wound/Incision: Yes: Clean/Dry, Dressing Dry and Intact Neurological: Yes: Alert, Oriented, Weakness Psychiatric: Yes: Alert, Oriented Labs: CBC, BMP 03/29/18 05:30 03/29/18 05:30 INR, PTT INR 1.18 (0.83-1.09) H 03/28/18 07:10 Abnormal Lab Results 03/28/18 03/28/18 03/29/18 06:20 13:28 05:30 RBC Hgb Hct MCV RDW Neutrophils % Neutrophils % (Manual) Lymphocytes % Lymphocytes % (Manual) Monocytes % Monocytes % (Manual) Anion Gap 6 L Random Glucose 278 H Calcium 7.8 L Magnesium 1.7 L Total Protein 5.3 L Albumin 2.3 L CSF Glucose 103 H Random Vancomycin Crossmatch IS Only See Detail 03/29/18 03/29/18 05:30 11:10 RBC 3.25 L Hgb 10.8 L Hct 31.2 L MCV 96.1 H RDW 16.8 H Neutrophils % 93.3 H Neutrophils % (Manual) 89.0 H Lymphocytes % 4.4 L D Lymphocytes % (Manual) 2.0 L D Monocytes % 2.1 L Monocytes % (Manual) 3 L Anion Gap Random Glucose Calcium Magnesium Total Protein Albumin CSF Glucose Random Vancomycin 16.7 L Crossmatch IS Only - ....Imaging EKG: Image Reviewed (NSR; occasional APCs) Problem List - Problems (1) Anemia Code(s): D64.9 - ANEMIA, UNSPECIFIED Qualifiers: Anemia type: unspecified type Qualified Code(s): D64.9 - Anemia, unspecified (2) Atrial fibrillation Assessment/Plan: On metoprolol bid at home. Not on anticoagulant (?due to prior GI bleed). Normal LVEF; mild-moderate LA size;mild MR and TR by 2016 ECHO; will repeat. Code(s): I48.91 - UNSPECIFIED ATRIAL FIBRILLATION Qualifiers: Atrial fibrillation type: unspecified Qualified Code(s): I48.91 - Unspecified atrial fibrillation (3) COPD (chronic obstructive pulmonary disease) Code(s): J44.9 - CHRONIC OBSTRUCTIVE PULMONARY DISEASE, UNSPECIFIED (4) Melanoma Assessment/Plan: MRI: likely abscess, subdural empyema. s/p operation of cranial wound by Dr. Simmons. Code(s): C43.9 - MALIGNANT MELANOMA OF SKIN, UNSPECIFIED (5) Sepsis Code(s): A41.9 - SEPSIS, UNSPECIFIED ORGANISM (6) Weakness Code(s): R53.1 - WEAKNESS (7) Hypomagnesemia Assessment/Plan: mg and PO4 replaced; f/u all electrolytes. Code(s): E83.42 - HYPOMAGNESEMIA
--- NOTE | 2018-03-29 09:46 | PN ---
Progress Note (short form) - Note Progress Note: NEUROSURGERY POD #1 In ICU No H/A, No N/V C/o diplopia earlier reportedly PE: Tmax 97.8, AF, VSS CN- nonfocal; motor- L LE 4+-5/5 Gram stain- gram positive baccili, PMN's Head CT- postop changes R frontal lobe, edema Brain abscess: s/p craniectomy, debridement, Ommaya removal Stable neurologically Cont iv abx Care d/w Dr Wilhelm intra-op findings d/w patient Adv diet SQ heparin later today
[2018-03-29] MEDS ORDERED: PANTOPRAZOLE SODIUM 40 MG VIAL IVPUSH SCH (10:00)
[2018-03-29] MEDS ORDERED: ENOXAPARIN NA (PORCINE) 40 MG/0.4 ML DISP.SYRIN SQ SCH (10:00)
[2018-03-29] MEDS: BUDESONIDE/FORMETEROL FUMARATE 160/4.5 mcg INHALER IH SCH ×2 (10:54→22:00)
--- NOTE | 2018-03-29 11:12 | PN ---
Physical Exam: SUBJECTIVE: Patient seen and examined at bedside this morning. He is POD #1 after craniotomy, abscess debridement, excision of bone, fibrotic tissue, and removal of Ommaya catheter. Patient admits diplopia, and that when reading distant text on the TV, or along the stewart, the letters appear to be packed close together. He is tolerating clear liquids, anisha lindy. He has not passed bowel movement or flatus. Denies fevers, chills, shortness of breath palpitations, chest pain, palpitations, abdominal pain, nausea, vomiting, diarrhea. OBJECTIVE: Vital Signs Period Temp Pulse Resp BP Sys/Betancourt Pulse Ox Last 24 Hr 97.4 F-98.3 F 85-115 12-22 102-165/55-87 97-99 GENERAL: The patient is awake, alert, and fully oriented, in no acute distress. HEAD: S/P craniotomy. scar visualized, clean cutures. No active draining. EYES: PERRLA, extraocular movements intact b/l. No nystagmus b/l. Sclera anicteric, conjunctiva clear. ENT: Oropharynx clear without exudates or lesions. Moist mucous membranes. NECK: Trachea midline, Supple without lymphadenopathy. LUNGS: Good inspiratory effort. Breath sounds equal, clear to auscultation bilaterally. No wheezes. No accessory muscle use. HEART: Irregular rate and rhythm. S1, S2 auscultated without murmur appreciated. ABDOMEN: Soft, nontender, nondistended. Normoactive bowel sounds x4 quadrants. No guarding, no rebound. No hepatosplenomegaly appreciated.. EXTREMITIES: 2+ radial and dorsalis pedis pulses. Warm. No lower extremity edema b/l. NEUROLOGICAL: Cranial nerves II through XII grossly intact. Normal speech. Strength 5/5 b/l upper extremities in flexion, extension, abduciton, adduction. Strength 5/5 right lower extremity in hip flexion, extension and knee flexion, extension. 5/5 in left lower extremity hip flexion, extension and 4/5 knee flexion, extension. Plantarflexion and dorsiflexion 5/5 b/l. Sensation intact b/ l upper and lower extremities. PSYCH: Appropriate mood and affect upon my encounter. Laboratory Results - last 24 hr 03/28/18 03/28/18 03/28/18 06:20 07:10 13:28 WBC Corrected WBC (auto) RBC Hgb Hct MCV MCH MCHC RDW Plt Count MPV Absolute Neuts (auto) Neutrophils % Neutrophils % (Manual) 74.2 Band Neutrophils % 6.2 Lymphocytes % Lymphocytes % (Manual) 10.3 Monocytes % Monocytes % (Manual) 6 Eosinophils % Eosinophils % (Manual) 1.1 Basophils % Basophils % (Manual) 1.0 Myelocytes % (Man) 0 Promyelocytes % (Man) 0 Blast Cells % (Manual) 0 Nucleated RBC % Metamyelocytes 0 D Manual Slide Review Hypochromia 0 Platelet Estimate Adequate Platelet Comment Polychromasia 0 Poikilocytosis 0 Anisocytosis 1+ Microcytosis 0 Macrocytosis 1+ Sodium Potassium Chloride Carbon Dioxide Anion Gap BUN Creatinine Creat Clearance w eGFR POC Glucometer Random Glucose Calcium Phosphorus Magnesium Total Bilirubin AST ALT Alkaline Phosphatase Total Protein Albumin CSF Glucose 103 H CSF Total Protein 34 Random Vancomycin Blood Type O POSITIVE Antibody Screen Negative Crossmatch IS Only See Detail 03/28/18 03/28/18 03/28/18 14:19 16:41 21:36 WBC Corrected WBC (auto) RBC Hgb Hct MCV MCH MCHC RDW Plt Count MPV Absolute Neuts (auto) Neutrophils % Neutrophils % (Manual) Band Neutrophils % Lymphocytes % Lymphocytes % (Manual) Monocytes % Monocytes % (Manual) Eosinophils % Eosinophils % (Manual) Basophils % Basophils % (Manual) Myelocytes % (Man) Promyelocytes % (Man) Blast Cells % (Manual) Nucleated RBC % Metamyelocytes Manual Slide Review Hypochromia Platelet Estimate Platelet Comment Polychromasia Poikilocytosis Anisocytosis Microcytosis Macrocytosis Sodium Potassium Chloride Carbon Dioxide Anion Gap BUN Creatinine Creat Clearance w eGFR POC Glucometer [phone] > 400 Random Glucose Calcium Phosphorus Magnesium Total Bilirubin AST ALT Alkaline Phosphatase Total Protein Albumin CSF Glucose CSF Total Protein Random Vancomycin Blood Type Antibody Screen Crossmatch IS Only 03/29/18 03/29/18 03/29/18 05:30 05:30 05:30 WBC Cancelled Corrected WBC (auto) Cancelled RBC Cancelled Hgb Cancelled Hct Cancelled MCV Cancelled MCH Cancelled MCHC Cancelled RDW Cancelled Plt Count Cancelled MPV Cancelled Absolute Neuts (auto) Neutrophils % Neutrophils % (Manual) Band Neutrophils % Lymphocytes % Lymphocytes % (Manual) Monocytes % Monocytes % (Manual) Eosinophils % Eosinophils % (Manual) Basophils % Basophils % (Manual) Myelocytes % (Man) Promyelocytes % (Man) Blast Cells % (Manual) Nucleated RBC % Metamyelocytes Manual Slide Review Cancelled Hypochromia Platelet Estimate Platelet Comment Cancelled Polychromasia Poikilocytosis Anisocytosis Microcytosis Macrocytosis Sodium 139 Potassium 3.7 Chloride 103 Carbon Dioxide 30 Anion Gap 6 L BUN 14 Creatinine 0.9 Creat Clearance w eGFR > 60 POC Glucometer Random Glucose 278 H Calcium 7.8 L Phosphorus 3.2 Magnesium 1.7 L Total Bilirubin 0.7 AST 18 ALT 41 Alkaline Phosphatase 82 Total Protein 5.3 L Albumin 2.3 L CSF Glucose CSF Total Protein Random Vancomycin 23.52 Blood Type Antibody Screen Crossmatch IS Only 03/29/18 03/29/18 05:30 06:44 WBC 7.3 Corrected WBC (auto) RBC 3.25 L Hgb 10.8 L Hct 31.2 L MCV 96.1 H MCH 33.2 MCHC 34.5 RDW 16.8 H Plt Count 148 MPV 7.6 Absolute Neuts (auto) 6.8 Neutrophils % 93.3 H Neutrophils % (Manual) Band Neutrophils % Lymphocytes % 4.4 L D Lymphocytes % (Manual) Monocytes % 2.1 L Monocytes % (Manual) Eosinophils % 0.0 D Eosinophils % (Manual) Basophils % 0.2 Basophils % (Manual) Myelocytes % (Man) Promyelocytes % (Man) Blast Cells % (Manual) Nucleated RBC % 0 Metamyelocytes Manual Slide Review Hypochromia Platelet Estimate Platelet Comment Polychromasia Poikilocytosis Anisocytosis Microcytosis Macrocytosis Sodium Potassium Chloride Carbon Dioxide Anion Gap BUN Creatinine Creat Clearance w eGFR POC Glucometer [phone] Random Glucose Calcium Phosphorus Magnesium Total Bilirubin AST ALT Alkaline Phosphatase Total Protein Albumin CSF Glucose CSF Total Protein Random Vancomycin Blood Type Antibody Screen Crossmatch IS Only Active Medications Generic Name Dose Route Start Last Admin Trade Name Freq PRN Reason Stop Dose Admin Ascorbic Acid 250 mg 03/28/18 16:00 03/29/18 08:59 Vitamin C - PO 250 mg DAILY [facility] Administration Budesonide/Formoterol Fumarate 1 puff 03/28/18 22:00 03/29/18 10:54 Symbicort 160/4.5mcg - IH 1 puff BID [facility] Administration Chlorhexidine Gluconate 1 applic 03/28/18 22:00 03/28/18 22:21 Hibiclens For Decolonization - TP 1 applic HS [facility] Administration Chlorhexidine Gluconate 1 applic 03/28/18 22:00 03/28/18 22:21 Hibiclens For Decolonization - TP Not Given HS [facility] Digoxin 0.25 mg 03/29/18 10:00 03/29/18 09:00 Lanoxin - PO 0.25 mg DAILY [facility] Administration Docusate Sodium 100 mg 03/28/18 14:00 03/29/18 06:23 Colace - PO 100 mg TID [facility] Administration Ferrous Sulfate 325 mg 03/28/18 22:00 03/29/18 09:00 Feosol - PO 325 mg BID [facility] Administration Gabapentin 600 mg 03/28/18 16:00 03/29/18 06:23 Neurontin - PO 600 mg TID [facility] Administration Hydrocortisone Sodium Succinate 50 mg 03/29/18 00:01 03/29/18 09:00 Solu-Cortef - IVPUSH 50 mg Q8H-IV [facility] Administration Hydromorphone HCl 0.5 mg 03/28/18 18:23 Dilaudid Vial - IVPUSH Q4H PRN PAIN LEVEL 6-10 Ampicillin Sodium 2 gm/ Sodium 100 mls @ 200 mls/hr 03/28/18 14:00 03/29/18 10:52 Chloride IVPB 200 mls/hr Q4H-IV [facility] Administration Cefepime HCl 2 gm/ Dextrose 100 mls @ 200 mls/hr 03/28/18 14:00 03/29/18 08: 59 IVPB 200 mls/hr Q8H-IV [facility] Administration Protocol Metronidazole 500 mg in 100 mls @ 100 mls/hr 03/28/18 18:00 03/29/18 09:01 Flagyl 500mg Premixed Ivpb - IVPB 100 mls/hr Q8H-IV [facility] Administration Lactated Ringer's 1,000 mls @ 75 mls/hr 03/29/18 07:40 03/29/18 08:08 Lactated Ringers Solution IV 75 mls/hr ASDIR [facility] Administration Insulin Aspart 1 vial 03/28/18 16:30 03/29/18 06:48 Novolog Vial Sliding Scale - SQ 6 units ACHS [facility] Administration Protocol Metoprolol Succinate 50 mg 03/28/18 22:00 03/28/18 21:40 Toprol Xl - PO 50 mg HS [facility] Administration Metoprolol Succinate 100 mg 03/29/18 07:00 03/29/18 06:24 Toprol Xl - PO 100 mg AM [facility] Administration Mupirocin 1 applic 03/28/18 22:00 03/29/18 09:05 Bactroban Ointment (For Decolonization) - NS 04/02/18 21:59 1 applic BID [facility] Administration Non-Formulary Medication 15 gm 03/28/18 16:00 Levalbuterol Tartrate [Xopenex Hfa] IH Q4H PRN SHORTNESS OF BREATH Ondansetron HCl 4 mg 03/28/18 13:56 Zofran Injection IVPUSH Q6H PRN NAUSEA Pantoprazole Sodium 40 mg 03/29/18 10:00 03/29/18 09:02 Protonix Iv IVPUSH 40 mg DAILY [facility] Administration IMAGING: CT head: Nonspecific right frontal rim enhancing lesion 3.4 x 3.4 x 3.3 cm concerning for abscess vs. neoplastic disease. MRI head: Vasogenic edema of right frontal lobe. Findings suggestive of abscess with subdural empyema CT head (post-operative): Vasogenic edema right frontal lobe. No herniation, hydrocephalus. No acute ischemic changes. ASSESSMENT/PLAN: Patient is a 62 year old male with history of stage four melanoma (s/p recent revision of craniotomy in January d/t leaking cyst), Afib (not on anticoagulation) , HTN, DM, COPD, presents with complaint of yellow, sticky discharge from Ommaya catheter for approx. 10 days and new left lower extremity weakness. Brain abscess -Patient is POD #1 s/p craniotomy. -ID consult (Dr. Wilhelm) appreciated: Empiric coverage with Vancomycin 1250mg Q12H, Cefepime 2gm Q8H IV, Flagy 500mg Q8H IV. Ampicillin 2gm IV Q4H added Holding Vancomycin until trough reaches less than 15. At that point will reinstate Vancomycin 1gram Q2H -Wound cultures grow gram positive bacilli (concern for Listeria) -Follow blood cultures- -Tylenol 650mg PO Q6H PRN for pain 1-5 -Dilaudid 0.5mg IV Q4H for pain 6-10 Adrenal Insufficiency -Endocrinology (Dr. Martinez) consult appreciated: Hydocortisone 50mg Q8H for stress-dose steroids. Afib -Not on anticoagulation d/t history of GI bleed ?diverticulitis in 2016 -Continue Metoprolol 100mg PO AM, 50mg PO HS -Continue Digoxin 0.25mg PO daily HTN -Continue Metoprolol 100mg PO AM, 50mg PO HS DM -ISS -BGM ACHS FEN -Lactated Ringers 75mL/hr -Follow CMP -Diabetic diet Prophylaxis -Heparin 5000units subq TID Disposition -Continue care in ICU Visit type - Emergency Visit Emergency Visit: Yes ED Registration Date: 03/27/18 Care time: The patient presented to the Emergency Department on the above date and was hospitalized for further evaluation of their emergent condition. - New Patient This patient is new to me today: No - Critical Care Critical Care patient: Yes Total Critical Care Time (in minutes): 35 Critical Care Statement: The care of this patient involved high complexity decision making to prevent further life threatening deterioration of the patient 's condition and/or to evaluate & treat vital organ system(s) failure or risk of failure. - Discharge Referral Referred to [facility] No
[2018-03-29 11:14] LABS: ANISOCYTOSIS 1+; MACROCYTOSIS 1+; OVALOCYTE 1+; PLATELET ESTIMATE DECREASED
--- NOTE | 2018-03-29 11:28 | PN ---
Progress Note, Physician History of Present Illness: POD #1 R frontal craniotomy, debridement/ abscess drainage, removal of Ommaya catheter Awake, alert, oriented Conversant Temps down Had episode of diplopia this am Operative c/s pending ( gram stain GPR) WBC WNL Vanco level noted - Current Medication List Current Medications: Active Medications Ascorbic Acid (Vitamin C -) 250 mg PO DAILY [facility] Last Admin: 03/29/18 08:59 Dose: 250 mg Budesonide/Formoterol Fumarate (Symbicort 160/4.5mcg -) 1 puff IH BID [facility] Last Admin: 03/29/18 10:54 Dose: 1 puff Chlorhexidine Gluconate (Hibiclens For Decolonization -) 1 applic TP HS [facility] Last Admin: 03/28/18 22:21 Dose: 1 applic Chlorhexidine Gluconate (Hibiclens For Decolonization -) 1 applic TP HS [facility] Last Admin: 03/28/18 22:21 Dose: Not Given Digoxin (Lanoxin -) 0.25 mg PO DAILY [facility] Last Admin: 03/29/18 09:00 Dose: 0.25 mg Docusate Sodium (Colace -) 100 mg PO TID [facility] Last Admin: 03/29/18 06:23 Dose: 100 mg Ferrous Sulfate (Feosol -) 325 mg PO BID [facility] Last Admin: 03/29/18 09:00 Dose: 325 mg Gabapentin (Neurontin -) 600 mg PO TID [facility] Last Admin: 03/29/18 06:23 Dose: 600 mg Hydrocortisone Sodium Succinate (Solu-Cortef -) 50 mg IVPUSH Q8H-IV [facility] Last Admin: 03/29/18 09:00 Dose: 50 mg Hydromorphone HCl (Dilaudid Vial -) 0.5 mg IVPUSH Q4H PRN PRN Reason: PAIN LEVEL 6-10 Ampicillin Sodium 2 gm/ Sodium (Chloride) 100 mls @ 200 mls/hr IVPB Q4H-IV [facility] Last Admin: 03/29/18 10:52 Dose: 200 mls/hr Cefepime HCl 2 gm/ Dextrose 100 mls @ 200 mls/hr IVPB Q8H-IV [facility]; Protocol Last Admin: 03/29/18 08:59 Dose: 200 mls/hr Metronidazole (Flagyl 500mg Premixed Ivpb -) 500 mg in 100 mls @ 100 mls/hr IVPB Q8H-IV [facility] Last Admin: 03/29/18 09:01 Dose: 100 mls/hr Lactated Ringer's (Lactated Ringers Solution) 1,000 mls @ 75 mls/hr IV ASDIR [facility] Last Admin: 03/29/18 08:08 Dose: 75 mls/hr Insulin Aspart (Novolog Vial Sliding Scale -) 1 vial SQ ACHS [facility]; Protocol Last Admin: 03/29/18 06:48 Dose: 6 units Metoprolol Succinate (Toprol Xl -) 50 mg PO HS [facility] Last Admin: 03/28/18 21:40 Dose: 50 mg Metoprolol Succinate (Toprol Xl -) 100 mg PO AM [facility] Last Admin: 03/29/18 06:24 Dose: 100 mg Mupirocin (Bactroban Ointment (For Decolonization) -) 1 applic NS BID [facility] Stop: 04/02/18 21:59 Last Admin: 03/29/18 09:05 Dose: 1 applic Non-Formulary Medication (Levalbuterol Tartrate [Xopenex Hfa]) 15 gm IH Q4H PRN PRN Reason: SHORTNESS OF BREATH Ondansetron HCl (Zofran Injection) 4 mg IVPUSH Q6H PRN PRN Reason: NAUSEA Pantoprazole Sodium (Protonix Iv) 40 mg IVPUSH DAILY [facility] Last Admin: 03/29/18 09:02 Dose: 40 mg - Objective Vital Signs: Vital Signs Temperature 98.3 F 03/29/18 10:00 Pulse Rate 92 H 03/29/18 10:00 Respiratory Rate 12 03/29/18 10:00 Blood Pressure 165/73 03/29/18 10:00 O2 Sat by Pulse Oximetry (%) 99 03/28/18 21:00 Constitutional: Yes: Other HENT: Yes: Other (surgical wound intact No erythema/ drainage) Neck: Yes: Supple Cardiovascular: Yes: Regular Rate and Rhythm, S1, S2 Respiratory: Yes: CTA Bilaterally Gastrointestinal: Yes: Normal Bowel Sounds, Soft. No: Tenderness Labs: CBC, BMP 03/29/18 05:30 03/29/18 05:30 INR, PTT INR 1.18 (0.83-1.09) H 03/28/18 07:10 Assessment/Plan POD #1 R frontal craniotomy/ debridement/ abscess drainage/ removal of Ommaya Stage IV melanoma Solitary kidney Await c/s Continue cefepime/ flagyl/ ampicillin D/C vancomycin
--- NOTE | 2018-03-29 12:04 | PN ---
Teaching Attending Note Name of Resident: Arleen Gutiérrez ATTENDING PHYSICIAN STATEMENT I saw and evaluated the patient. I reviewed the resident's note and discussed the case with the resident. I agree with the resident's findings and plan as documented. SUBJECTIVE: Pt seen and examined in the ICU. s/p R frontal craniectomy/abscess drainage/ Ommaya removal. Some blurred vision this AM but now improving. OBJECTIVE: Vital Signs Period Temp Pulse Resp BP Sys/Betancourt Pulse Ox Last 24 Hr 97.4 F-98.3 F 85-115 12-22 102-165/55-87 97-99 Intake & Output 03/26/18 03/27/18 03/28/18 03/29/18 23:59 23:59 23:59 23:59 Intake Total 1000 3035 1510 Output Total 2440 1600 Balance 1000 595 -90 Weight 81.647 kg 83.461 kg 84.232 kg Gen: NAD at rest Heart: RRR Lung: decreased breath sounds at the bases Abd: soft, nontender Ext: no edema CBC, BMP 03/29/18 05:30 03/29/18 05:30 Active Medications Ascorbic Acid (Vitamin C -) 250 mg PO DAILY [facility] Last Admin: 03/29/18 08:59 Dose: 250 mg Budesonide/Formoterol Fumarate (Symbicort 160/4.5mcg -) 1 puff IH BID [facility] Last Admin: 03/29/18 10:54 Dose: 1 puff Chlorhexidine Gluconate (Hibiclens For Decolonization -) 1 applic TP [facility] Last Admin: 03/28/18 22:21 Dose: 1 applic Chlorhexidine Gluconate (Hibiclens For Decolonization -) 1 applic TP [facility] Last Admin: 03/28/18 22:21 Dose: Not Given Digoxin (Lanoxin -) 0.25 mg PO DAILY [facility] Last Admin: 03/29/18 09:00 Dose: 0.25 mg Docusate Sodium (Colace -) 100 mg PO TID [facility] Last Admin: 03/29/18 06:23 Dose: 100 mg Ferrous Sulfate (Feosol -) 325 mg PO BID [facility] Last Admin: 03/29/18 09:00 Dose: 325 mg Gabapentin (Neurontin -) 600 mg PO TID [facility] Last Admin: 03/29/18 06:23 Dose: 600 mg Hydrocortisone Sodium Succinate (Solu-Cortef -) 50 mg IVPUSH Q8H-IV [facility] Last Admin: 03/29/18 09:00 Dose: 50 mg Hydromorphone HCl (Dilaudid Vial -) 0.5 mg IVPUSH Q4H PRN PRN Reason: PAIN LEVEL 6-10 Ampicillin Sodium 2 gm/ Sodium (Chloride) 100 mls @ 200 mls/hr IVPB Q4H-IV [facility] Last Admin: 03/29/18 10:52 Dose: 200 mls/hr Cefepime HCl 2 gm/ Dextrose 100 mls @ 200 mls/hr IVPB Q8H-IV [facility]; Protocol Last Admin: 03/29/18 08:59 Dose: 200 mls/hr Metronidazole (Flagyl 500mg Premixed Ivpb -) 500 mg in 100 mls @ 100 mls/hr IVPB Q8H-IV [facility] Last Admin: 03/29/18 09:01 Dose: 100 mls/hr Lactated Ringer's (Lactated Ringers Solution) 1,000 mls @ 75 mls/hr IV ASDIR [facility] Last Admin: 03/29/18 08:08 Dose: 75 mls/hr Insulin Aspart (Novolog Vial Sliding Scale -) 1 vial SQ ACHS [facility]; Protocol Last Admin: 03/29/18 06:48 Dose: 6 units Metoprolol Succinate (Toprol Xl -) 50 mg PO HS [facility] Last Admin: 03/28/18 21:40 Dose: 50 mg Metoprolol Succinate (Toprol Xl -) 100 mg PO AM [facility] Last Admin: 03/29/18 06:24 Dose: 100 mg Mupirocin (Bactroban Ointment (For Decolonization) -) 1 applic NS BID [facility] Stop: 04/02/18 21:59 Last Admin: 03/29/18 09:05 Dose: 1 applic Non-Formulary Medication (Levalbuterol Tartrate [Xopenex Hfa]) 15 gm IH Q4H PRN PRN Reason: SHORTNESS OF BREATH Ondansetron HCl (Zofran Injection) 4 mg IVPUSH Q6H PRN PRN Reason: NAUSEA Pantoprazole Sodium (Protonix Iv) 40 mg IVPUSH DAILY [facility] Last Admin: 03/29/18 09:02 Dose: 40 mg ASSESSMENT AND PLAN: R Frontal Brain Abscess s/p Craniectomy/Abscess Drainage/Ommaya removal Metastatic Melanoma Atrial Fibrillation COPD Adrenal Insufficiency HTN DM Hyperlipidemia - continue antibiotics per ID - f/u cultures - continue hydrocortisone - inhaled bronchodilators - rate controlled - O2 to keep SpO2 >90% - pain control - DVT prophylaxis - continue ICU monitoring critical care time spent in reviewing chart, evaluating patient and formulating plan 35 min
[2018-03-29] MEDS ORDERED: INSULIN (NOVOLOG) ASPART 100 UNITS/ML 10ML VIAL ONE (12:53)
[2018-03-29] MEDS: HEPARIN NA (PORCINE) 5,000 UNITS/ML 1ML VIAL SQ SCH ×2 (12:59→21:25)
--- NOTE | 2018-03-29 14:01 | PN ---
Teaching Attending Note Name of Resident: Dileep Valenzuela ATTENDING PHYSICIAN STATEMENT I saw and evaluated the patient. I reviewed the resident's note and discussed the case with the resident. I agree with the resident's findings and plan as documented. SUBJECTIVE: no fever or hcills. feels better. N minimal ROBERTS this am . blurry vision this am , resolved by time of eval at 9 am . OBJECTIVE: NAD , Awake , alert , pleasant and cooperative HEENT: round equal pupils , reactive to light , MMM, no facial droop. surical wound with jeannie. and pulsating skin flap no drainage CC: RRR. no MRG Lungs: CTAB Ext: no edema NEuro : round equal reactive pupils, no facial droop. tongue and uvula at mid line. strength 5/5 in R upper and lower extremities, proximally and distally. LUE strength 5/5 at shoulder , elbow and wrist . LLE : 5/5 hip flexion. 4/5 knee flexion and extention . 5/5 plantar flexion and extension ASSESSMENT AND PLAN: 62 year-old man with a PMH of metastatic melanoma , HTN, afib, NIDDM, adrenal insufficiency, COPD, HLP, nephrectomy, metastatic melanoma s/p cracneotomy 5 years ago, s/p re-do craniotomy 01/24 fro fluid collection, and Ommaya cath placement, T7-8 disc herniation s/p spinal sx in 02/24 , who presented with fever and purulent drainage from scalp incision site. He was found to have R frontal collection 1- R frontal abscess : s/p craniotomy, debridement, and drainage. - Abx . vano level noted. - repeat CT noted. - follow cultures 2- H/o A fib: in sinus rhythm on EKG. - cont home dig and toprol - not on AC 3- H/o adrenal insufficiency: cont stress dose hydrocortisone for today . will taper tomorrow 4- DM: hole prandin and metformin, and cont SSI 5- h/o metastatic melanoma: out pt follo wup heparin sq. Ok with sx
[2018-03-29] MEDS ORDERED: ALPRAZolam 0.25 MG TABLET PO ONE ×2 (20:00)
[2018-03-29] MEDS: CHLORHEXIDINE GLUCONATE 4% CLEANSER FOR DECOLONIZATION TP SCH ×2 (21:29→22:00)
[2018-03-30] MEDS ORDERED: VANCOMYCIN 1,250 MG in DEXTROSE 5%-WATER - 250 ML IVPB SCH (00:01)
[2018-03-30] MEDS: CEFEPIME 2 GM in DEXTROSE 5%-WATER 100 ML IVPB SCH ×3 (01:19→20:29)
[2018-03-30] MEDS: AMPICILLIN - 2 GM in SODIUM CHLORIDE 100 ML IVPB SCH ×5 (01:19→22:30)
[2018-03-30] MEDS: HYDROCORTISONE SOD SUCCINATE 100 MG/2 ML VIAL IVPUSH SCH ×2 (01:23→22:31)
[2018-03-30] MEDS ORDERED: VANCOMYCIN 1,000 MG in DEXTROSE 5%-WATER - 250 ML IVPB SCH ×2 (02:30→14:30)
[2018-03-30] MEDS ORDERED: VANCOMYCIN 1,000 MG in DEXTROSE 5%-WATER - 250 ML IVPB ONE ×2 (02:30→14:05)
[2018-03-30] MEDS: DOCUSATE SODIUM 100 MG CAPSULE (FP) PO SCH ×3 (05:56→22:31)
[2018-03-30] MEDS: GABAPENTIN 300 MG CAPSULE (FP) PO SCH ×3 (05:56→22:31)
[2018-03-30] MEDS: HEPARIN NA (PORCINE) 5,000 UNITS/ML 1ML VIAL SQ SCH ×3 (05:57→22:31)
[2018-03-30] MEDS: INSULIN SLIDING SCALE (NOVOLOG) 1 VIAL SQ SCH ×4 (06:00→22:34)
[2018-03-30 06:12] LABS: BASO % 0.5 % (0-2.0); EOS % 0.5 % (0-4.5); HEMATOCRIT 27.7 % (35.4-49); HEMOGLOBIN 9.4 GM/dL (11.7-16.9); LYMPH % 5.3 % (8-40); MCH 33.3 pg (25.7-33.7); MCHC 34.1 g/dl (32.0-35.9); MEAN CELL VOLUME 97.8 fl (80-96); MEAN PLT VOLUME 7.6 fl (7.5-11.1); MONO % 3.8 % (3.8-10.2); NEUT % 89.9 % (42.8-82.8); PLATELET COUNT 148 K/MM3 (134-434); RBC 2.83 M/mm3 (4.00-5.60); RDW 16.6 % (11.9-15.9); WHITE BLOOD COUNT 8.3 K/mm3 (4.0-10.0)
[2018-03-30 06:48] LABS: ALBUMIN 2.1 g/dl (3.4-5.0); ALK PHOS 70 U/L (45-117); ANION GAP 8 MMOL/L (8-16); BILIRUBIN,TOTAL 0.5 mg/dL (0.2-1); BLOOD UREA NITROGEN 18 mg/dL (7-18); CALCIUM 7.9 mg/dL (8.5-10.1); CHLORIDE 104 mmol/L (98-107); CO2 30 mmol/L (21-32); CREATININE 0.9 mg/dL (0.55-1.3); MAGNESIUM 2.1 mg/dL (1.8-2.4); PHOSPHOROUS 2.1 mg/dL (2.5-4.9); POTASSIUM 3.7 mmol/L (3.5-5.1); SGOT/AST 10 U/L (15-37); SGPT/ALT 29 U/L (13-61); SODIUM 142 mmol/L (136-145); TOT PROT 4.8 g/dl (6.4-8.2)
[2018-03-30 06:52] LABS: GLUCOSE,RANDOM 335 mg/dL (74-106)
--- NOTE | 2018-03-30 07:59 | PN ---
Progress Note (short form) - Note Progress Note: NEUROSURGERY POD #2 In ICU No H/A, No N/V, no sz No diplopia PE: Tmax 98.6, AF, VSS Incision C/D/I General- unremarkable CN- nonfocal; motor- L LE 4+-5/5 Scalp drainage- staph epi and gram positive rods, aerobic culture negative x 24 hours, anaerobic culture pending cavity fluid gram stain- gram positive baccili, PMN's Head CT- postop changes R frontal lobe, edema Brain abscess: s/p craniectomy, debridement, Ommaya reservoir removal Stable neurologically Cont iv abx- on amp, cefepime and flagyl currently Adv diet D/C Otero Tx to 8 W
[2018-03-30] MEDS ORDERED: NAPH,MB-DB/K PH,MBDB POWDER PACKET PO ONE (08:00)
--- NOTE | 2018-03-30 09:02 | PN ---
Progress Note, Physician Chief Complaint: PT A&Ox3; he says, "I feel fine, except I didn't sleep all night because of the steroids". History of Present Illness: 62 yr old white man with PMHx melanoma, s/p craniotomy 12/2017, thoracic vetebral surgery 01/2018, PAF, HTN, DM, now admitted with fever and weakness. Pt had been undergoing physical therapy at home, but felt too weak to continue. - Current Medication List Current Medications: Active Medications Ascorbic Acid (Vitamin C -) 250 mg PO DAILY [facility] Last Admin: 03/29/18 08:59 Dose: 250 mg Budesonide/Formoterol Fumarate (Symbicort 160/4.5mcg -) 1 puff IH BID [facility] Last Admin: 03/29/18 22:00 Dose: 1 puff Chlorhexidine Gluconate (Hibiclens For Decolonization -) 1 applic TP HS [facility] Last Admin: 03/29/18 22:00 Dose: 1 applic Digoxin (Lanoxin -) 0.25 mg PO DAILY [facility] Last Admin: 03/29/18 09:00 Dose: 0.25 mg Docusate Sodium (Colace -) 100 mg PO TID [facility] Last Admin: 03/30/18 05:56 Dose: 100 mg Ferrous Sulfate (Feosol -) 325 mg PO BID [facility] Last Admin: 03/29/18 21:25 Dose: 325 mg Gabapentin (Neurontin -) 600 mg PO TID [facility] Last Admin: 03/30/18 05:56 Dose: 600 mg Heparin Sodium (Porcine) (Heparin -) 5,000 unit SQ TID [facility] Last Admin: 03/30/18 05:57 Dose: 5,000 unit Hydrocortisone Sodium Succinate (Solu-Cortef -) 50 mg IVPUSH Q8H-IV [facility] Last Admin: 03/30/18 01:23 Dose: 50 mg Hydromorphone HCl (Dilaudid Vial -) 0.5 mg IVPUSH Q4H PRN PRN Reason: PAIN LEVEL 6-10 Ampicillin Sodium 2 gm/ Sodium (Chloride) 100 mls @ 200 mls/hr IVPB Q4H-IV [facility] Last Admin: 03/30/18 05:52 Dose: 200 mls/hr Cefepime HCl 2 gm/ Dextrose 100 mls @ 200 mls/hr IVPB Q8H-IV [facility]; Protocol Last Admin: 03/30/18 01:19 Dose: 200 mls/hr Metronidazole (Flagyl 500mg Premixed Ivpb -) 500 mg in 100 mls @ 100 mls/hr IVPB Q8H-IV [facility] Last Admin: 03/30/18 01:23 Dose: 100 mls/hr Lactated Ringer's (Lactated Ringers Solution) 1,000 mls @ 75 mls/hr IV ASDIR [facility] Last Admin: 03/29/18 08:08 Dose: 75 mls/hr Insulin Aspart (Novolog Vial Sliding Scale -) 1 vial SQ ACHS [facility]; Protocol Last Admin: 03/30/18 06:00 Dose: 8 units Lactobacillus Acidophilus (Bacid -) 1 tab PO DAILY [facility] Metoprolol Succinate (Toprol Xl -) 50 mg PO HS [facility] Last Admin: 03/29/18 21:25 Dose: 50 mg Metoprolol Succinate (Toprol Xl -) 100 mg PO AM [facility] Last Admin: 03/30/18 06:16 Dose: 100 mg Mupirocin (Bactroban Ointment (For Decolonization) -) 1 applic NS BID [facility] Stop: 04/02/18 21:59 Last Admin: 03/29/18 21:41 Dose: 1 applic Non-Formulary Medication (Levalbuterol Tartrate [Xopenex Hfa]) 15 gm IH Q4H PRN PRN Reason: SHORTNESS OF BREATH Ondansetron HCl (Zofran Injection) 4 mg IVPUSH Q6H PRN PRN Reason: NAUSEA Pantoprazole Sodium (Protonix Iv) 40 mg IVPUSH DAILY [facility] Last Admin: 03/29/18 09:02 Dose: 40 mg - Objective Vital Signs: Vital Signs Temperature 98.6 F 03/30/18 02:00 Pulse Rate 81 03/30/18 08:00 Respiratory Rate 18 03/30/18 08:00 Blood Pressure 129/59 L 03/30/18 08:00 O2 Sat by Pulse Oximetry (%) 97 03/29/18 20:31 Constitutional: Yes: Calm Eyes: Yes: WNL HENT: Yes: Other (dressing of scalp surgical wound is dry) Neck: Yes: WNL Cardiovascular: Yes: S1, S2 Respiratory: Yes: WNL Gastrointestinal: Yes: Soft ...Rectal Exam: Yes: Deferred Genitourinary: No: Anuria Musculoskeletal: Yes: Muscle Weakness Extremities: Yes: Cool Edema: No Peripheral Pulses WNL: Yes Integumentary: Yes: Incision Wound/Incision: Yes: Clean/Dry, Dressing Removed (pt removes protective dressing to show surgical cranial site) Neurological: Yes: Alert, Oriented, Weakness Psychiatric: Yes: WNL Labs: CBC, BMP 03/30/18 05:30 03/30/18 05:30 INR, PTT INR 1.18 (0.83-1.09) H 03/28/18 07:10 Abnormal Lab Results 03/30/18 03/30/18 03/30/18 01:00 05:30 05:30 RBC 2.83 L Hgb 9.4 L Hct 27.7 L MCV 97.8 H RDW 16.6 H Neutrophils % 89.9 H Neutrophils % (Manual) 90.9 H Lymphocytes % 5.3 L D Lymphocytes % (Manual) 1.0 L D Random Glucose 335 H* Calcium 7.9 L Phosphorus 2.1 L AST 10 L Total Protein 4.8 L Albumin 2.1 L Random Vancomycin 8.4 L 03/30/18 19:30 RBC Hgb Hct MCV RDW Neutrophils % Neutrophils % (Manual) Lymphocytes % Lymphocytes % (Manual) Random Glucose 538 H* Calcium Phosphorus AST Total Protein Albumin Random Vancomycin Problem List - Problems (1) Anemia Code(s): D64.9 - ANEMIA, UNSPECIFIED Qualifiers: Anemia type: unspecified type Qualified Code(s): D64.9 - Anemia, unspecified (2) Atrial fibrillation Assessment/Plan: On metoprolol bid at home. Not on anticoagulant (?due to prior GI bleed). Normal LVEF; mild-moderate LA size;mild MR and TR by 2016 ECHO. Code(s): I48.91 - UNSPECIFIED ATRIAL FIBRILLATION Qualifiers: Atrial fibrillation type: unspecified Qualified Code(s): I48.91 - Unspecified atrial fibrillation (3) COPD (chronic obstructive pulmonary disease) Code(s): J44.9 - CHRONIC OBSTRUCTIVE PULMONARY DISEASE, UNSPECIFIED (4) Melanoma Assessment/Plan: post-craniotomy. MRI: likely abscess, subdural empyema. s/p operation of cranial wound by Dr. Simmons. Code(s): C43.9 - MALIGNANT MELANOMA OF SKIN, UNSPECIFIED (5) Sepsis Code(s): A41.9 - SEPSIS, UNSPECIFIED ORGANISM (6) Weakness Code(s): R53.1 - WEAKNESS (7) Hypomagnesemia Assessment/Plan: mg and PO4 replaced; Mg norrmal level today (2.1); PO4 still low at 2.1. Code(s): E83.42 - HYPOMAGNESEMIA
--- NOTE | 2018-03-30 09:18 | PN ---
Progress Note (short form) - Note Progress Note: Feels good Denies any complaints Vital Signs Period Temp Pulse Resp BP Sys/Betancourt Pulse Ox Last 24 Hr 98.2 F-98.6 F 75-104 11-18 102-165/58-85 97 PE: AOx3 Neck: supple. no JVD HEENT: EOMI Lungs: CTA CVS: S1S2 Abd: Benign EXT: No edema Neuro: No focal deficit CMP Sodium 142 mmol/L (136-145) 03/30/18 05:30 Potassium 3.7 mmol/L (3.5-5.1) 03/30/18 05:30 Chloride 104 mmol/L (98-107) 03/30/18 05:30 Carbon Dioxide 30 mmol/L (21-32) 03/30/18 05:30 Anion Gap 8 MMOL/L (8-16) 03/30/18 05:30 BUN 18 mg/dL (7-18) 03/30/18 05:30 Creatinine 0.9 mg/dL (0.55-1.3) 03/30/18 05:30 Creat Clearance w eGFR > 60 (>60) 03/30/18 05:30 POC Glucometer > 400 UNITS (80-120) 03/29/18 21:46 Random Glucose 335 mg/dL (74-106) H* 03/30/18 05:30 Calcium 7.9 mg/dL (8.5-10.1) L 03/30/18 05:30 Phosphorus 2.1 mg/dL (2.5-4.9) L 03/30/18 05:30 Magnesium 2.1 mg/dL (1.8-2.4) 03/30/18 05:30 Total Bilirubin 0.5 mg/dL (0.2-1) 03/30/18 05:30 AST 10 U/L (15-37) L 03/30/18 05:30 ALT 29 U/L (13-61) 03/30/18 05:30 Alkaline Phosphatase 70 U/L (45-117) 03/30/18 05:30 Troponin I < 0.02 ng/ml (0.00-0.05) 03/27/18 15:23 Total Protein 4.8 g/dl (6.4-8.2) L 03/30/18 05:30 Albumin 2.1 g/dl (3.4-5.0) L 03/30/18 05:30 Cortisol AM Sample 42.3 ug/dL (.) 03/29/18 05:30 Current Medications Generic Name Dose Route Start Last Admin Trade Name Madhu PRN Reason Stop Dose Admin Ascorbic Acid 250 mg 03/28/18 16:00 03/29/18 08:59 Vitamin C - PO 250 mg DAILY [facility] Administration Budesonide/Formoterol Fumarate 1 puff 03/28/18 22:00 03/29/18 22:00 Symbicort 160/4.5mcg - IH 1 puff BID [facility] Administration Chlorhexidine Gluconate 1 applic 03/28/18 22:00 03/29/18 22:00 Hibiclens For Decolonization - TP 1 applic HS [facility] Administration Digoxin 0.25 mg 03/29/18 10:00 03/29/18 09:00 Lanoxin - PO 0.25 mg DAILY [facility] Administration Docusate Sodium 100 mg 03/28/18 14:00 03/30/18 05:56 Colace - PO 100 mg TID [facility] Administration Ferrous Sulfate 325 mg 03/28/18 22:00 03/29/18 21:25 Feosol - PO 325 mg BID [facility] Administration Gabapentin 600 mg 03/28/18 16:00 03/30/18 05:56 Neurontin - PO 600 mg TID [facility] Administration Heparin Sodium (Porcine) 5,000 unit 03/29/18 14:00 03/30/18 05:57 Heparin - SQ 5,000 unit TID [facility] Administration Hydrocortisone Sodium Succinate 50 mg 03/30/18 10:00 Solu-Cortef - IVPUSH BID [facility] Hydromorphone HCl 0.5 mg 03/28/18 18:23 Dilaudid Vial - IVPUSH Q4H PRN PAIN LEVEL 6-10 Ampicillin Sodium 2 gm/ Sodium 100 mls @ 200 mls/hr 03/28/18 14:00 03/30/18 05:52 Chloride IVPB 200 mls/hr Q4H-IV [facility] Administration Cefepime HCl 2 gm/ Dextrose 100 mls @ 200 mls/hr 03/28/18 14:00 03/30/18 01: 19 IVPB 200 mls/hr Q8H-IV [facility] Administration Protocol Metronidazole 500 mg in 100 mls @ 100 mls/hr 03/28/18 18:00 03/30/18 01:23 Flagyl 500mg Premixed Ivpb - IVPB 100 mls/hr Q8H-IV [facility] Administration Lactated Ringer's 1,000 mls @ 75 mls/hr 03/29/18 07:40 03/29/18 08:08 Lactated Ringers Solution IV 75 mls/hr ASDIR [facility] Administration Insulin Aspart 1 vial 03/28/18 16:30 03/30/18 06:00 Novolog Vial Sliding Scale - SQ 8 units ACHS [facility] Administration Protocol Lactobacillus Acidophilus 1 tab 03/30/18 10:00 Bacid - PO DAILY [facility] Metoprolol Succinate 50 mg 03/28/18 22:00 03/29/18 21:25 Toprol Xl - PO 50 mg HS [facility] Administration Metoprolol Succinate 100 mg 03/29/18 07:00 03/30/18 06:16 Toprol Xl - PO 100 mg AM [facility] Administration Mupirocin 1 applic 03/28/18 22:00 03/29/18 21:41 Bactroban Ointment (For Decolonization) - NS 04/02/18 21:59 1 applic BID [facility] Administration Non-Formulary Medication 15 gm 03/28/18 16:00 Levalbuterol Tartrate [Xopenex Hfa] IH Q4H PRN SHORTNESS OF BREATH Ondansetron HCl 4 mg 03/28/18 13:56 Zofran Injection IVPUSH Q6H PRN NAUSEA Pantoprazole Sodium 40 mg 03/29/18 10:00 03/29/18 09:02 Protonix Iv IVPUSH 40 mg DAILY [facility] Administration AP S/P Craniotomy ? abscess Melanoma A Fib S/P Nephrectomy Adrenal Insufficiency Decrease Hydrocortison 50mg Iv BID, then 25 BID if asymptomatic If stable will do rapid taper after 24 hrs Will f/u
--- NOTE | 2018-03-30 09:34 | PN ---
Physical Exam: SUBJECTIVE:Patient is a 62 y/o male with a history of afib, DM, HTN, stage 4 melanoma, nephrectomy for metastasis, and 2 craniotomies the most recent being who is admitted to the ICU POD 2 for R frontal craniotomy. Patient has no complaints overnight, reports he had trouble sleeping. OBJECTIVE: Vital Signs Period Temp Pulse Resp BP Sys/Betancourt Pulse Ox Last 24 Hr 98.2 F-98.6 F 75-104 - 102-165/58-85 97 GENERAL: Awake, alert, and fully oriented, in no acute distress. HEAD: head dressing. stiches in place, drainage not appreciated EYES: Pupils equal, round and reactive to light, extraocular movements intact, LUNGS: Breath sounds equal, clear to auscultation bilaterally. No accessory muscle use. HEART: Regular rate and rhythm, normal S1 and S2 without murmur, rub or gallop. ABDOMEN: Soft, nontender, not distended, normoactive bowel sounds LOWER EXTREMITIES: warm, well-perfused. No calf tenderness. No peripheral edema. NEUROLOGICAL: sensation intact, 5/5 dorsal and plantar flexion, UE ROM intact CBCD WBC 8.3 K/mm3 (4.0-10.0) 03/30/18 05:30 RBC 2.83 M/mm3 (4.00-5.60) L 03/30/18 05:30 Hgb 9.4 GM/dL (11.7-16.9) L 03/30/18 05:30 Hct 27.7 % (35.4-49) L 03/30/18 05:30 MCV 97.8 fl (80-96) H 03/30/18 05:30 MCHC 34.1 g/dl (32.0-35.9) 03/30/18 05:30 RDW 16.6 % (11.9-15.9) H 03/30/18 05:30 Plt Count 148 K/MM3 (134-434) 03/30/18 05:30 MPV 7.6 fl (7.5-11.1) 03/30/18 05:30 CMP Sodium 142 mmol/L (136-145) 03/30/18 05:30 Potassium 3.7 mmol/L (3.5-5.1) 03/30/18 05:30 Chloride 104 mmol/L (98-107) 03/30/18 05:30 Carbon Dioxide 30 mmol/L (21-32) 03/30/18 05:30 Anion Gap 8 MMOL/L (8-16) 03/30/18 05:30 BUN 18 mg/dL (7-18) 03/30/18 05:30 Creatinine 0.9 mg/dL (0.55-1.3) 03/30/18 05:30 Creat Clearance w eGFR > 60 (>60) 03/30/18 05:30 Calcium 7.9 mg/dL (8.5-10.1) L 03/30/18 05:30 Total Bilirubin 0.5 mg/dL (0.2-1) 03/30/18 05:30 AST 10 U/L (15-37) L 03/30/18 05:30 ALT 29 U/L (13-61) 03/30/18 05:30 Alkaline Phosphatase 70 U/L (45-117) 03/30/18 05:30 Total Protein 4.8 g/dl (6.4-8.2) L 03/30/18 05:30 Albumin 2.1 g/dl (3.4-5.0) L 03/30/18 05:30 Microbiology 03/28/18 13:28 Cerebral Spinal Fluid - Shunt-Csf Gram Stain - Final 03/28/18 13:28 Cerebral Spinal Fluid - Shunt-Csf CSF Culture - Preliminary 03/27/18 15:29 Blood - Peripheral Venous Blood Culture - Preliminary NO GROWTH OBTAINED AFTER 48 HOURS, INCUBATION TO CONTINUE FOR 3 DAYS. 03/27/18 15:20 Blood - Peripheral Venous Blood Culture - Preliminary NO GROWTH OBTAINED AFTER 48 HOURS, INCUBATION TO CONTINUE FOR 3 DAYS. 03/28/18 13:31 Catheter Tip - Catheter - Other Foreign Body Culture - Preliminary NO GROWTH OBTAINED AFTER 24 HOURS INCUBATION, REINCUBATED. 03/28/18 10:43 Head Gram Stain - Final 03/28/18 10:43 Head Wound Culture - Preliminary Staphylococcus Coagulase Neg Gram Negative Fawad 03/27/18 22:23 Head Gram Stain - Final 03/27/18 22:23 Head Wound Culture - Preliminary Staphylococcus Coagulase Neg Pending Organism 03/28/18 11:49 Body Fluid - Other Gram Stain - Final 03/28/18 11:49 Body Fluid - Other Body Fluid Culture - Preliminary NO AEROBIC GROWTH, 24 HRS 09/19/18 11:49 Body Fluid - Other Gram Stain - Final 03/28/18 11:49 Body Fluid - Other Body Fluid Culture - Preliminary NO AEROBIC GROWTH, 24 HRS 03/27/18 15:36 Urine - Urine Clean Catch Urine Culture - Final NO GROWTH OBTAINED Active Medications Ascorbic Acid (Vitamin C -) 250 mg PO DAILY [facility] Last Admin: 03/29/18 08:59 Dose: 250 mg Budesonide/Formoterol Fumarate (Symbicort 160/4.5mcg -) 1 puff IH BID [facility] Last Admin: 03/29/18 22:00 Dose: 1 puff Chlorhexidine Gluconate (Hibiclens For Decolonization -) 1 applic TP HS [facility] Last Admin: 03/29/18 22:00 Dose: 1 applic Digoxin (Lanoxin -) 0.25 mg PO DAILY [facility] Last Admin: 03/29/18 09:00 Dose: 0.25 mg Docusate Sodium (Colace -) 100 mg PO TID [facility] Last Admin: 03/30/18 05:56 Dose: 100 mg Ferrous Sulfate (Feosol -) 325 mg PO BID [facility] Last Admin: 03/29/18 21:25 Dose: 325 mg Gabapentin (Neurontin -) 600 mg PO TID [facility] Last Admin: 03/30/18 05:56 Dose: 600 mg Heparin Sodium (Porcine) (Heparin -) 5,000 unit SQ TID [facility] Last Admin: 03/30/18 05:57 Dose: 5,000 unit Hydrocortisone Sodium Succinate (Solu-Cortef -) 50 mg IVPUSH BID [facility] Hydromorphone HCl (Dilaudid Vial -) 0.5 mg IVPUSH Q4H PRN PRN Reason: PAIN LEVEL 6-10 Ampicillin Sodium 2 gm/ Sodium (Chloride) 100 mls @ 200 mls/hr IVPB Q4H-IV [facility] Last Admin: 03/30/18 05:52 Dose: 200 mls/hr Cefepime HCl 2 gm/ Dextrose 100 mls @ 200 mls/hr IVPB Q8H-IV [facility]; Protocol Last Admin: 03/30/18 01:19 Dose: 200 mls/hr Metronidazole (Flagyl 500mg Premixed Ivpb -) 500 mg in 100 mls @ 100 mls/hr IVPB Q8H-IV [facility] Last Admin: 03/30/18 01:23 Dose: 100 mls/hr Lactated Ringer's (Lactated Ringers Solution) 1,000 mls @ 75 mls/hr IV ASDIR [facility] Last Admin: 03/29/18 08:08 Dose: 75 mls/hr Insulin Aspart (Novolog Vial Sliding Scale -) 1 vial SQ ACHS [facility]; Protocol Last Admin: 03/30/18 06:00 Dose: 8 units Lactobacillus Acidophilus (Bacid -) 1 tab PO DAILY [facility] Metoprolol Succinate (Toprol Xl -) 50 mg PO HS [facility] Last Admin: 03/29/18 21:25 Dose: 50 mg Metoprolol Succinate (Toprol Xl -) 100 mg PO AM [facility] Last Admin: 03/30/18 06:16 Dose: 100 mg Mupirocin (Bactroban Ointment (For Decolonization) -) 1 applic NS BID [facility] Stop: 04/02/18 21:59 Last Admin: 03/29/18 21:41 Dose: 1 applic Non-Formulary Medication (Levalbuterol Tartrate [Xopenex Hfa]) 15 gm IH Q4H PRN PRN Reason: SHORTNESS OF BREATH Ondansetron HCl (Zofran Injection) 4 mg IVPUSH Q6H PRN PRN Reason: NAUSEA Pantoprazole Sodium (Protonix Iv) 40 mg IVPUSH DAILY [facility] Last Admin: 03/29/18 09:02 Dose: 40 mg ASSESSMENT/PLAN: Patient is a 62 y/o male with a history of afib, stage 4 melanoma, nephrectomy for met, and 2 craniotomies the most recent being 01/24 who is POD 2 for R frontal craniotomy, abscess debridment, excision of fibrotic tissue, removal of catheter and CSF sampling. Neuro R Frontal Craniotomy with abscess - R frontal craniotomy, abscess debridment, excision of fibrotic tissue, removal of catheter and CSF sampling by Dr. Simmons - patient bone was not replaced, soft top at 3.5 x 3.5 site of incision, expected drainage from this surgery - discussed with NATHAN Cherry - past brain MRI: showed frontal lesion, because of recent craniotomy in 01/24 , worry for abscess/infection - CSF glucose increased at 103 - f/u cx of CSF sampling, cx of catheter tip, and cx of bone - f/u bcx, ucx, nasopharyngeal swap - head cx: staph coag negative, gram negative fawad, pending organisms - continue neuro checks hourly - keep head of bed elevated - repeat head CT: vasogenic edema at the R frontal lobe Cardio afib - continue digoxin .24 mg po daily - metoprolol 100 mg am, 50 mg hs - rate and rhythm controlled, EKG showed no av block, no st segment changes Pulm s/p surgery - incentive spirometer q 1h - CXR: no evidence of acute process Nephro s/p nephrectomy from metastasis - BUN/Cr stable - monitor closely - per ID continue antibiotics GI - ppx pantoprazole - bowel regimen: docusate - nausea: Zofran 4mg q6h prn QTC 410 Infectious Disease R frontal abscess - Ampicilin, Metronidazole - Cefepime - Zosyn - f/u Dr. Wilhelm - f/u cultures - head cx: staph coag negative, gram negative fawad, pending organisms - if fevers, can give tylenol - Vanc trough drawn at 12 am last night and low so dose of Vanc given, f.u ID rec's Endocrine DM - continue SS adrenal insufficency - morning cortisol level 42.3 - Dr. Hernandes: 50 mg hydrochortisone BID Hematology DVT ppx - Heparin TID - SCD's FEN - diabetic diet - LR @ 125 Dispo: patient can be transferred to 8w Visit type - Emergency Visit Emergency Visit: No - New Patient This patient is new to me today: No - Critical Care Critical Care patient: Yes Total Critical Care Time (in minutes): 40 Critical Care Statement: The care of this patient involved high complexity decision making to prevent further life threatening deterioration of the patient 's condition and/or to evaluate & treat vital organ system(s) failure or risk of failure.
[2018-03-30] MEDS ORDERED: PT OWN MED DRAWER 7, Y5N ONE ×3 (09:42→23:10)
[2018-03-30] MEDS: PANTOPRAZOLE SODIUM 40 MG VIAL IVPUSH SCH (09:49)
[2018-03-30] MEDS: ASCORBIC ACID 250 MG TABLET (FP) PO SCH (09:58)
[2018-03-30] MEDS: BUDESONIDE/FORMETEROL FUMARATE 160/4.5 mcg INHALER IH SCH (09:58)
[2018-03-30] MEDS ORDERED: HYDROCORTISONE SOD SUCCINATE 100 MG/2 ML VIAL IVPUSH SCH (10:00)
[2018-03-30] MEDS ORDERED: LACTOBACILLUS ACIDOPHILUS 1 TABLET PO SCH (10:00)
[2018-03-30] MEDS: DIGOXIN 0.25 MG TABLET (FP) PO SCH (10:07)
[2018-03-30] MEDS: FERROUS SO4 325 MG TABLET (FP) PO SCH ×2 (10:07→22:31)
[2018-03-30] MEDS: MUPIROCIN 2% TOPICAL OINTMENT FOR DECOLONIZATION NS SCH (10:07)
[2018-03-30] MEDS ORDERED: INSULIN (NOVOLOG) ASPART 100 UNITS/ML 10ML VIAL ONE ×3 (10:49→22:18)
[2018-03-30] MEDS: LACTATED RINGERS SOLUTION 1,000 ML IV SCH (11:09)
[2018-03-30 11:21] LABS: ANISOCYTOSIS 1+; MACROCYTOSIS 1+; PLATELET ESTIMATE DECREASED
--- NOTE | 2018-03-30 12:15 | PN ---
Teaching Attending Note Name of Resident: Arleen Gutiérrez ATTENDING PHYSICIAN STATEMENT I saw and evaluated the patient. I reviewed the resident's note and discussed the case with the resident. I agree with the resident's findings and plan as documented. SUBJECTIVE: Patient seen and examined in the ICU. Awake and alert. No ROBERTS or dizziness. No CP or SOB. OBJECTIVE: Intake & Output 03/27/18 03/28/18 03/29/18 03/30/18 23:59 23:59 23:59 23:59 Intake Total 1000 3035 2960 1550 Output Total 2440 4200 Balance 1000 595 -1240 1550 Weight 180 lb 184 lb 185 lb 185 lb 5 oz Last Vital Signs Temp Pulse Resp BP Pulse Ox 98.6 F 83 18 139/60 97 03/30/18 02:00 03/30/18 11:00 03/30/18 11:00 03/30/18 11:00 03/29/18 20:31 Active Medications Ascorbic Acid (Vitamin C -) 250 mg PO DAILY [facility] Last Admin: 03/30/18 09:58 Dose: 250 mg Budesonide/Formoterol Fumarate (Symbicort 160/4.5mcg -) 1 puff IH BID [facility] Last Admin: 03/30/18 09:58 Dose: 1 puff Chlorhexidine Gluconate (Hibiclens For Decolonization -) 1 applic TP HS [facility] Last Admin: 03/29/18 22:00 Dose: 1 applic Digoxin (Lanoxin -) 0.25 mg PO DAILY [facility] Last Admin: 03/30/18 10:07 Dose: 0.25 mg Docusate Sodium (Colace -) 100 mg PO TID [facility] Last Admin: 03/30/18 05:56 Dose: 100 mg Ferrous Sulfate (Feosol -) 325 mg PO BID [facility] Last Admin: 03/30/18 10:07 Dose: 325 mg Gabapentin (Neurontin -) 600 mg PO TID [facility] Last Admin: 03/30/18 05:56 Dose: 600 mg Heparin Sodium (Porcine) (Heparin -) 5,000 unit SQ TID [facility] Last Admin: 03/30/18 05:57 Dose: 5,000 unit Hydrocortisone Sodium Succinate (Solu-Cortef -) 25 mg IVPUSH BID [facility] Hydromorphone HCl (Dilaudid Vial -) 0.5 mg IVPUSH Q4H PRN PRN Reason: PAIN LEVEL 6-10 Ampicillin Sodium 2 gm/ Sodium (Chloride) 100 mls @ 200 mls/hr IVPB Q4H-IV [facility] Last Admin: 03/30/18 11:09 Dose: 200 mls/hr Cefepime HCl 2 gm/ Dextrose 100 mls @ 200 mls/hr IVPB Q8H-IV [facility]; Protocol Last Admin: 03/30/18 11:09 Dose: 200 mls/hr Metronidazole (Flagyl 500mg Premixed Ivpb -) 500 mg in 100 mls @ 100 mls/hr IVPB Q8H-IV [facility] Last Admin: 03/30/18 09:47 Dose: 100 mls/hr Lactated Ringer's (Lactated Ringers Solution) 1,000 mls @ 75 mls/hr IV ASDIR [facility] Last Admin: 03/30/18 11:09 Dose: 75 mls/hr Insulin Aspart (Novolog Vial Sliding Scale -) 1 vial SQ ACHS [facility]; Protocol Last Admin: 03/30/18 11:16 Dose: 6 units Lactobacillus Acidophilus (Bacid -) 1 tab PO DAILY [facility] Last Admin: 03/30/18 09:49 Dose: 1 tab Metoprolol Succinate (Toprol Xl -) 50 mg PO HS [facility] Last Admin: 03/29/18 21:25 Dose: 50 mg Metoprolol Succinate (Toprol Xl -) 100 mg PO AM [facility] Last Admin: 03/30/18 06:16 Dose: 100 mg Mupirocin (Bactroban Ointment (For Decolonization) -) 1 applic NS BID [facility] Stop: 04/02/18 21:59 Last Admin: 03/30/18 10:07 Dose: 1 applic Non-Formulary Medication (Levalbuterol Tartrate [Xopenex Hfa]) 15 gm IH Q4H PRN PRN Reason: SHORTNESS OF BREATH Ondansetron HCl (Zofran Injection) 4 mg IVPUSH Q6H PRN PRN Reason: NAUSEA Pantoprazole Sodium (Protonix Iv) 40 mg IVPUSH DAILY [facility] Last Admin: 03/30/18 09:49 Dose: 40 mg Gen: Awake and alert, NAD at rest, bandage intact Heart: RRR Lung: decreased breath sounds at the bases Abd: soft, nontender Ext: no edema Laboratory Results - last 24 hr 0903/29/18 03/29/18 05:30 11:10 12:11 WBC RBC Hgb Hct MCV MCH MCHC RDW Plt Count MPV Absolute Neuts (auto) Neutrophils % Neutrophils % (Manual) Band Neutrophils % Lymphocytes % Lymphocytes % (Manual) Monocytes % Monocytes % (Manual) Eosinophils % Eosinophils % (Manual) Basophils % Basophils % (Manual) Myelocytes % (Man) Promyelocytes % (Man) Blast Cells % (Manual) Nucleated RBC % Metamyelocytes Hypochromia Platelet Estimate Polychromasia Poikilocytosis Anisocytosis Microcytosis Macrocytosis Sodium Potassium Chloride Carbon Dioxide Anion Gap BUN Creatinine Creat Clearance w eGFR POC Glucometer [phone] Random Glucose Calcium Phosphorus Magnesium Total Bilirubin AST ALT Alkaline Phosphatase Total Protein Albumin Cortisol AM Sample 42.3 Random Vancomycin 16.7 L 03/29/18 03/29/18 03/30/18 16:38 21:46 01:00 WBC RBC Hgb Hct MCV MCH MCHC RDW Plt Count MPV Absolute Neuts (auto) Neutrophils % Neutrophils % (Manual) Band Neutrophils % Lymphocytes % Lymphocytes % (Manual) Monocytes % Monocytes % (Manual) Eosinophils % Eosinophils % (Manual) Basophils % Basophils % (Manual) Myelocytes % (Man) Promyelocytes % (Man) Blast Cells % (Manual) Nucleated RBC % Metamyelocytes Hypochromia Platelet Estimate Polychromasia Poikilocytosis Anisocytosis Microcytosis Macrocytosis Sodium Potassium Chloride Carbon Dioxide Anion Gap BUN Creatinine Creat Clearance w eGFR POC Glucometer [phone] > 400 Random Glucose Calcium Phosphorus Magnesium Total Bilirubin AST ALT Alkaline Phosphatase Total Protein Albumin Cortisol AM Sample Random Vancomycin 8.4 L 03/30/18 03/30/18 03/30/18 05:30 05:30 05:38 WBC 8.3 RBC 2.83 L Hgb 9.4 L Hct 27.7 L MCV 97.8 H MCH 33.3 MCHC 34.1 RDW 16.6 H Plt Count 148 MPV 7.6 Absolute Neuts (auto) 7.5 Neutrophils % 89.9 H Neutrophils % (Manual) 90.9 H Band Neutrophils % 1.0 Lymphocytes % 5.3 L D Lymphocytes % (Manual) 1.0 L D Monocytes % 3.8 D Monocytes % (Manual) 5 Eosinophils % 0.5 D Eosinophils % (Manual) 0.0 Basophils % 0.5 Basophils % (Manual) 0.0 Myelocytes % (Man) 1 D Promyelocytes % (Man) 0 Blast Cells % (Manual) 0 Nucleated RBC % 0 Metamyelocytes 1 D Hypochromia 0 Platelet Estimate Decreased Polychromasia 0 Poikilocytosis 0 Anisocytosis 1+ Microcytosis 0 Macrocytosis 1+ Sodium 142 Potassium 3.7 Chloride 104 Carbon Dioxide 30 Anion Gap 8 BUN 18 Creatinine 0.9 Creat Clearance w eGFR > 60 POC Glucometer [phone] Random Glucose 335 H* Calcium 7.9 L Phosphorus 2.1 L Magnesium 2.1 Total Bilirubin 0.5 AST 10 L ALT 29 Alkaline Phosphatase 70 Total Protein 4.8 L Albumin 2.1 L Cortisol AM Sample Random Vancomycin 03/30/18 11:13 WBC RBC Hgb Hct MCV MCH MCHC RDW Plt Count MPV Absolute Neuts (auto) Neutrophils % Neutrophils % (Manual) Band Neutrophils % Lymphocytes % Lymphocytes % (Manual) Monocytes % Monocytes % (Manual) Eosinophils % Eosinophils % (Manual) Basophils % Basophils % (Manual) Myelocytes % (Man) Promyelocytes % (Man) Blast Cells % (Manual) Nucleated RBC % Metamyelocytes Hypochromia Platelet Estimate Polychromasia Poikilocytosis Anisocytosis Microcytosis Macrocytosis Sodium Potassium Chloride Carbon Dioxide Anion Gap BUN Creatinine Creat Clearance w eGFR POC Glucometer [phone] Random Glucose Calcium Phosphorus Magnesium Total Bilirubin AST ALT Alkaline Phosphatase Total Protein Albumin Cortisol AM Sample Random Vancomycin ASSESSMENT AND PLAN: R Frontal Brain Abscess s/p Craniectomy/Abscess Drainage/Ommaya removal Metastatic Melanoma Atrial Fibrillation COPD Adrenal Insufficiency HTN DM Hyperlipidemia - ABX per ID - Steroid wean - inhaled bronchodilators - rate controlled - O2 to keep SpO2 >90% - pain control - DVT prophylaxis - [address] Holder
--- NOTE | 2018-03-30 14:17 | PN ---
Physical Exam: SUBJECTIVE: Patient seen and examined at bedside this morning. No acute overnight events. He is POD #2 after craniotomy, abscess debridement, excision of bone, fibrotic tissue, and removal of Ommaya catheter. Admits resolution of diplopia, and no longer sees letters as "close together" with distant vision. He is tolerating diabetic diet, urinating without tinajero catheter, and passing flatus. Denies headache, dizziness, lightheadedness, fevers, chills, shortness of breath, chest pain, palpitations, abdominal pain, nausea, vomiting, diarrhea , hematuria, dysuria. OBJECTIVE: Vital Signs Period Temp Pulse Resp BP Sys/Betancourt Pulse Ox Last 24 Hr 98.2 F-98.6 F 75-104 11-18 102-157/58-85 97 GENERAL: The patient is awake, alert, and fully oriented, in no acute distress. HEAD: S/P craniotomy. scar visualized, clean cutures. No active draining. EYES: PERRLA, extraocular movements intact b/l. No nystagmus b/l. Sclera anicteric, conjunctiva clear. ENT: Oropharynx clear without exudates or lesions. Moist mucous membranes. NECK: Trachea midline, Supple without lymphadenopathy. LUNGS: Good inspiratory effort. Breath sounds equal, clear to auscultation bilaterally. No wheezes. No accessory muscle use. HEART: Irregular rate and rhythm. S1, S2 auscultated without murmur appreciated. ABDOMEN: Soft, nontender, nondistended. Normoactive bowel sounds x4 quadrants. No guarding, no rebound. No hepatosplenomegaly appreciated.. EXTREMITIES: 2+ radial and dorsalis pedis pulses. Warm. No lower extremity edema b/l. NEUROLOGICAL: Cranial nerves II through XII grossly intact. Normal speech. Strength 5/5 b/l upper extremities in flexion, extension, abduciton, adduction. Biceps reflex 2+ b/l. Strength 5/5 right lower extremity in hip flexion, extension and knee flexion, extension. Patellar and Achilles tendon reflex 2+ b/ l. 5/5 in left lower extremity hip flexion, extension and 4/5 knee flexion, extension. 1+ left patellar reflex, 2+ left Achilles tendon. Plantarflexion and dorsiflexion 5/5 b/l. Sensation intact b/l upper and lower extremities. PSYCH: Appropriate mood and affect upon my encounter. Laboratory Results - last 24 hr 03/29/18 03/29/18 03/29/18 05:30 12:11 16:38 WBC RBC Hgb Hct MCV MCH MCHC RDW Plt Count MPV Absolute Neuts (auto) Neutrophils % Neutrophils % (Manual) Band Neutrophils % Lymphocytes % Lymphocytes % (Manual) Monocytes % Monocytes % (Manual) Eosinophils % Eosinophils % (Manual) Basophils % Basophils % (Manual) Myelocytes % (Man) Promyelocytes % (Man) Blast Cells % (Manual) Nucleated RBC % Metamyelocytes Hypochromia Platelet Estimate Polychromasia Poikilocytosis Anisocytosis Microcytosis Macrocytosis Sodium Potassium Chloride Carbon Dioxide Anion Gap BUN Creatinine Creat Clearance w eGFR POC Glucometer [phone] Random Glucose Calcium Phosphorus Magnesium Total Bilirubin AST ALT Alkaline Phosphatase Total Protein Albumin Cortisol AM Sample 42.3 Random Vancomycin 03/29/18 03/30/18 03/30/18 21:46 01:00 05:30 WBC 8.3 RBC 2.83 L Hgb 9.4 L Hct 27.7 L MCV 97.8 H MCH 33.3 MCHC 34.1 RDW 16.6 H Plt Count 148 MPV 7.6 Absolute Neuts (auto) 7.5 Neutrophils % 89.9 H Neutrophils % (Manual) 90.9 H Band Neutrophils % 1.0 Lymphocytes % 5.3 L D Lymphocytes % (Manual) 1.0 L D Monocytes % 3.8 D Monocytes % (Manual) 5 Eosinophils % 0.5 D Eosinophils % (Manual) 0.0 Basophils % 0.5 Basophils % (Manual) 0.0 Myelocytes % (Man) 1 D Promyelocytes % (Man) 0 Blast Cells % (Manual) 0 Nucleated RBC % 0 Metamyelocytes 1 D Hypochromia 0 Platelet Estimate Decreased Polychromasia 0 Poikilocytosis 0 Anisocytosis 1+ Microcytosis 0 Macrocytosis 1+ Sodium Potassium Chloride Carbon Dioxide Anion Gap BUN Creatinine Creat Clearance w eGFR POC Glucometer > 400 Random Glucose Calcium Phosphorus Magnesium Total Bilirubin AST ALT Alkaline Phosphatase Total Protein Albumin Cortisol AM Sample Random Vancomycin 8.4 L 03/30/18 03/30/18 03/30/18 05:30 05:38 11:13 WBC RBC Hgb Hct MCV MCH MCHC RDW Plt Count MPV Absolute Neuts (auto) Neutrophils % Neutrophils % (Manual) Band Neutrophils % Lymphocytes % Lymphocytes % (Manual) Monocytes % Monocytes % (Manual) Eosinophils % Eosinophils % (Manual) Basophils % Basophils % (Manual) Myelocytes % (Man) Promyelocytes % (Man) Blast Cells % (Manual) Nucleated RBC % Metamyelocytes Hypochromia Platelet Estimate Polychromasia Poikilocytosis Anisocytosis Microcytosis Macrocytosis Sodium 142 Potassium 3.7 Chloride 104 Carbon Dioxide 30 Anion Gap 8 BUN 18 Creatinine 0.9 Creat Clearance w eGFR > 60 POC Glucometer [phone] Random Glucose 335 H* Calcium 7.9 L Phosphorus 2.1 L Magnesium 2.1 Total Bilirubin 0.5 AST 10 L ALT 29 Alkaline Phosphatase 70 Total Protein 4.8 L Albumin 2.1 L Cortisol AM Sample Random Vancomycin Active Medications Generic Name Dose Route Start Last Admin Trade Name Freq PRN Reason Stop Dose Admin Ascorbic Acid 250 mg 03/28/18 16:00 03/30/18 09:58 Vitamin C - PO 250 mg DAILY [facility] Administration Budesonide/Formoterol Fumarate 1 puff 03/28/18 22:00 03/30/18 09:58 Symbicort 160/4.5mcg - IH 1 puff BID [facility] Administration Chlorhexidine Gluconate 1 applic 03/28/18 22:00 03/29/18 22:00 Hibiclens For Decolonization - TP 1 applic HS [facility] Administration Digoxin 0.25 mg 03/29/18 10:00 03/30/18 10:07 Lanoxin - PO 0.25 mg DAILY [facility] Administration Docusate Sodium 100 mg 03/28/18 14:00 03/30/18 13:33 Colace - PO 100 mg TID [facility] Administration Ferrous Sulfate 325 mg 03/28/18 22:00 03/30/18 10:07 Feosol - PO 325 mg BID [facility] Administration Gabapentin 600 mg 03/28/18 16:00 03/30/18 13:33 Neurontin - PO 600 mg TID [facility] Administration Heparin Sodium (Porcine) 5,000 unit 03/29/18 14:00 03/30/18 13:39 Heparin - SQ 5,000 unit TID [facility] Administration Hydrocortisone Sodium Succinate 25 mg 03/30/18 10:06 Solu-Cortef - IVPUSH BID [facility] Hydromorphone HCl 0.5 mg 09/19/18 18:23 Dilaudid Vial - IVPUSH Q4H PRN PAIN LEVEL 6-10 Ampicillin Sodium 2 gm/ Sodium 100 mls @ 200 mls/hr 03/28/18 14:00 03/30/18 11:09 Chloride IVPB 200 mls/hr Q4H-IV [facility] Administration Cefepime HCl 2 gm/ Dextrose 100 mls @ 200 mls/hr 03/28/18 14:00 03/30/18 11: 09 IVPB 200 mls/hr Q8H-IV [facility] Administration Protocol Metronidazole 500 mg in 100 mls @ 100 mls/hr 03/28/18 18:00 03/30/18 09:47 Flagyl 500mg Premixed Ivpb - IVPB 100 mls/hr Q8H-IV [facility] Administration Lactated Ringer's 1,000 mls @ 75 mls/hr 03/29/18 07:40 03/30/18 11:09 Lactated Ringers Solution IV 75 mls/hr ASDIR [facility] Administration Insulin Aspart 1 vial 03/28/18 16:30 03/30/18 11:16 Novolog Vial Sliding Scale - SQ 6 units ACHS [facility] Administration Protocol Lactobacillus Acidophilus 1 tab 03/30/18 10:00 03/30/18 09:49 Bacid - PO 1 tab DAILY [facility] Administration Metoprolol Succinate 50 mg 03/28/18 22:00 03/29/18 21:25 Toprol Xl - PO 50 mg HS [facility] Administration Metoprolol Succinate 100 mg 03/29/18 07:00 03/30/18 06:16 Toprol Xl - PO 100 mg AM [facility] Administration Mupirocin 1 applic 03/28/18 22:00 03/30/18 10:07 Bactroban Ointment (For Decolonization) - NS 04/02/18 21:59 1 applic BID [facility] Administration Non-Formulary Medication 15 gm 03/28/18 16:00 Levalbuterol Tartrate [Xopenex Hfa] IH Q4H PRN SHORTNESS OF BREATH Ondansetron HCl 4 mg 03/28/18 13:56 Zofran Injection IVPUSH Q6H PRN NAUSEA Pantoprazole Sodium 40 mg 03/29/18 10:00 03/30/18 09:49 Protonix Iv IVPUSH 40 mg DAILY [facility] Administration IMAGING: CT head: Nonspecific right frontal rim enhancing lesion 3.4 x 3.4 x 3.3 cm concerning for abscess vs. neoplastic disease. MRI head: Vasogenic edema of right frontal lobe. Findings suggestive of abscess with subdural empyema CT head (post-operative): Vasogenic edema right frontal lobe. No herniation, hydrocephalus. No acute ischemic changes. ASSESSMENT/PLAN: Patient is a 62 year old male with history of stage four melanoma (s/p recent revision of craniotomy in January d/t leaking cyst), Afib (not on anticoagulation) , HTN, DM, COPD, presents with complaint of yellow, sticky discharge from Ommaya catheter for approx. 10 days and new left lower extremity weakness. Brain abscess -Patient is POD #2 s/p craniotomy. -ID consult (Dr. Wilhelm) appreciated: Empiric coverage with Vancomycin 1250mg Q12H, Cefepime 2gm Q8H IV, Flagy 500mg Q8H IV. Ampicillin 2gm IV Q4H Reinstate Vancomycin 1gram Q24H. Vancomycin trough overnight was 8.4. -Wound cultures (from scalp) grow gram positive bacilli. Staph coagulase negative, E. coli, strep viridians -CSF cultures negative at 46 hours -Blood cultures- growing gram positive bacilli (concern for Listeria) -Tylenol 650mg PO Q6H PRN for pain 1-5 -Dilaudid 0.5mg IV Q4H for pain 6-10 Adrenal Insufficiency -Endocrinology (Dr. Martinez) consult appreciated. -Hydocortisone lowered to 25mg BID Afib -Not on anticoagulation d/t history of GI bleed ?diverticulitis in 2016 -Continue Metoprolol 100mg PO AM, 50mg PO HS -Continue Digoxin 0.25mg PO daily HTN -Continue Metoprolol 100mg PO AM, 50mg PO HS DM -ISS (scale and dosage updated) -BGM ACHS FEN -Patient tolerating PO fluids. Encourage judicious hydration. -Follow CMP -Diabetic diet Prophylaxis -Heparin 5000units subq TID Disposition -Continue care in medical-surgical floor Visit type - Emergency Visit Emergency Visit: Yes ED Registration Date: 03/27/18 Care time: The patient presented to the Emergency Department on the above date and was hospitalized for further evaluation of their emergent condition. - New Patient This patient is new to me today: No - Critical Care Critical Care patient: No - Discharge Referral Referred to [facility] No
--- NOTE | 2018-03-30 14:19 | PN ---
Progress Note, Physician History of Present Illness: POD # 2 R frontal craniotomy, debridement/ abscess drainage, removal of Ommaya catheter Awake, alert, oriented Conversant Temps down Operative c/s no growth Wound c/s (swab of scalp) SCN/E coli WBC WNL Vanco level noted - Current Medication List Current Medications: Active Medications Ascorbic Acid (Vitamin C -) 250 mg PO DAILY [facility] Last Admin: 03/30/18 09:58 Dose: 250 mg Budesonide/Formoterol Fumarate (Symbicort 160/4.5mcg -) 1 puff IH BID [facility] Last Admin: 03/30/18 09:58 Dose: 1 puff Chlorhexidine Gluconate (Hibiclens For Decolonization -) 1 applic TP HS [facility] Last Admin: 03/29/18 22:00 Dose: 1 applic Digoxin (Lanoxin -) 0.25 mg PO DAILY [facility] Last Admin: 03/30/18 10:07 Dose: 0.25 mg Docusate Sodium (Colace -) 100 mg PO TID [facility] Last Admin: 03/30/18 13:33 Dose: 100 mg Ferrous Sulfate (Feosol -) 325 mg PO BID [facility] Last Admin: 03/30/18 10:07 Dose: 325 mg Gabapentin (Neurontin -) 600 mg PO TID [facility] Last Admin: 03/30/18 13:33 Dose: 600 mg Heparin Sodium (Porcine) (Heparin -) 5,000 unit SQ TID [facility] Last Admin: 03/30/18 13:39 Dose: 5,000 unit Hydrocortisone Sodium Succinate (Solu-Cortef -) 25 mg IVPUSH BID [facility] Hydromorphone HCl (Dilaudid Vial -) 0.5 mg IVPUSH Q4H PRN PRN Reason: PAIN LEVEL 6-10 Ampicillin Sodium 2 gm/ Sodium (Chloride) 100 mls @ 200 mls/hr IVPB Q4H-IV [facility] Last Admin: 03/30/18 11:09 Dose: 200 mls/hr Cefepime HCl 2 gm/ Dextrose 100 mls @ 200 mls/hr IVPB Q8H-IV [facility]; Protocol Last Admin: 03/30/18 11:09 Dose: 200 mls/hr Metronidazole (Flagyl 500mg Premixed Ivpb -) 500 mg in 100 mls @ 100 mls/hr IVPB Q8H-IV [facility] Last Admin: 03/30/18 09:47 Dose: 100 mls/hr Lactated Ringer's (Lactated Ringers Solution) 1,000 mls @ 75 mls/hr IV ASDIR [facility] Last Admin: 03/30/18 11:09 Dose: 75 mls/hr Vancomycin HCl 1,000 mg/ (Dextrose) 250 mls @ 166.667 mls/hr IVPB ONCE ONE; Protocol Stop: 03/30/18 15:34 Insulin Aspart (Novolog Vial Sliding Scale -) 1 vial SQ ACHS [facility]; Protocol Lactobacillus Acidophilus (Bacid -) 1 tab PO DAILY [facility] Last Admin: 03/30/18 09:49 Dose: 1 tab Metoprolol Succinate (Toprol Xl -) 50 mg PO HS [facility] Last Admin: 03/29/18 21:25 Dose: 50 mg Metoprolol Succinate (Toprol Xl -) 100 mg PO AM [facility] Last Admin: 03/30/18 06:16 Dose: 100 mg Mupirocin (Bactroban Ointment (For Decolonization) -) 1 applic NS BID [facility] Stop: 04/02/18 21:59 Last Admin: 03/30/18 10:07 Dose: 1 applic Non-Formulary Medication (Levalbuterol Tartrate [Xopenex Hfa]) 15 gm IH Q4H PRN PRN Reason: SHORTNESS OF BREATH Ondansetron HCl (Zofran Injection) 4 mg IVPUSH Q6H PRN PRN Reason: NAUSEA Pantoprazole Sodium (Protonix Iv) 40 mg IVPUSH DAILY [facility] Last Admin: 03/30/18 09:49 Dose: 40 mg - Objective Vital Signs: Vital Signs Temperature 98.6 F 03/30/18 02:00 Pulse Rate 99 H 03/30/18 13:00 Respiratory Rate 20 03/30/18 13:00 Blood Pressure 126/88 03/30/18 13:00 O2 Sat by Pulse Oximetry (%) 97 03/29/18 20:31 Constitutional: Yes: No Distress Eyes: Yes: Conjunctiva Clear HENT: Yes: Other (craniotomy wound no erythema/ drainage) Cardiovascular: Yes: Regular Rate and Rhythm, S1, S2 Respiratory: Yes: CTA Bilaterally Gastrointestinal: Yes: Normal Bowel Sounds, Soft, Abdomen, Obese. No: Tenderness Edema: No Labs: CBC, BMP 03/30/18 05:30 03/30/18 05:30 INR, PTT INR 1.18 (0.83-1.09) H 03/28/18 07:10 Assessment/Plan POD #2 R frontal craniotomy/ debridement/ abscess drainage/ removal of Ommaya Stage IV melanoma Solitary kidney Await final c/s Continue cefepime/ flagyl/ ampicillin. resume vancomycin
--- NOTE | 2018-03-30 14:23 | PN ---
Teaching Attending Note Name of Resident: Dileep Valenzuela ATTENDING PHYSICIAN STATEMENT I saw and evaluated the patient. I reviewed the resident's note and discussed the case with the resident. I agree with the resident's findings and plan as documented. SUBJECTIVE: no fever or chills. no ROBERTS, no visual changes. OBJECTIVE: NAD , Awake HEENT: round equal pupils , reactive to light , MMM, no facial droop. surgical wound with jeannie. no drainage CC: RRR. no MRG Lungs: CTAB Ext: no edema NEuro : round equal reactive pupils, no facial droop. tongue and uvula at mid line. strength 5/5 in R upper and lower extremities, proximally and distally. LUE strength 5/5 at shoulder , elbow and wrist . LLE : 4/5 hip flexion. 3/5 knee flexion and extension. 5/5 plantar flexion and extension ASSESSMENT AND PLAN: 62 year-old man with a PMH of metastatic melanoma , HTN, afib, NIDDM, adrenal insufficiency, COPD, HLP, nephrectomy, metastatic melanoma s/p cracneotomy 5 years ago, s/p re-do craniotomy 01/24 fro fluid collection, and Ommaya cath placement, T7-8 disc herniation s/p spinal sx in 02/24 , who presented with fever and purulent drainage from scalp incision site. He was found to have R frontal collection 1- R frontal abscess: s/p craniotomy, debridement, and drainage. - cont Abx. vanco dose adjusted - cultrues reviewed. will d/w ID the need for ampicillin - follow rest of cx 2- H/o A fib: in sinus rhythm on EKG. - cont home dig and toprol - not on AC 3- H/o adrenal insufficiency:decrease hydrocortisone to 25 BID . 5- DM : worsening in BGM due to steroids. increase SSI 6- h/o metastatic melanoma: out pt follow up heparin sq PT Tx out of unit
[2018-03-30] MEDS ORDERED: ONDANSETRON 4 MG/2 ML VIAL IVPUSH PRN (16:53)
[2018-03-30] MEDS ORDERED: HYDROmorphone HCl 2 MG/ML VIAL IVPUSH PRN (16:53)
[2018-03-30] MEDS: VANCOMYCIN 1,000 MG in DEXTROSE 5%-WATER - 250 ML IVPB SCH (17:17)
[2018-03-30] MEDS ORDERED: MUPIROCIN 2% TOPICAL OINTMENT FOR DECOLONIZATION NS SCH (22:00)
[2018-03-30] MEDS ORDERED: CHLORHEXIDINE GLUCONATE 4% CLEANSER FOR DECOLONIZATION TP SCH (22:00)
[2018-03-31] MEDS: BUDESONIDE/FORMETEROL FUMARATE 160/4.5 mcg INHALER IH SCH ×3 (00:24→22:01)
[2018-03-31] MEDS ORDERED: PT OWN MED DRAWER 7, Y5N ONE ×8 (01:02→22:00)
[2018-03-31] MEDS: AMPICILLIN - 2 GM in SODIUM CHLORIDE 100 ML IVPB SCH ×7 (01:05→19:22)
[2018-03-31] MEDS: CEFEPIME 2 GM in DEXTROSE 5%-WATER 100 ML IVPB SCH ×4 (01:42→19:22)
[2018-03-31] MEDS: DOCUSATE SODIUM 100 MG CAPSULE (FP) PO SCH ×3 (05:36→21:43)
[2018-03-31] MEDS: GABAPENTIN 300 MG CAPSULE (FP) PO SCH ×3 (05:36→21:43)
[2018-03-31] MEDS: HEPARIN NA (PORCINE) 5,000 UNITS/ML 1ML VIAL SQ SCH ×3 (05:36→21:44)
[2018-03-31] MEDS: INSULIN SLIDING SCALE (NOVOLOG) 1 VIAL SQ SCH ×5 (06:16→21:41)
[2018-03-31 06:51] LABS: HEMOGLOBIN 9.6 GM/dL (11.7-16.9); MCH 32.8 pg (25.7-33.7); MCHC 34.2 g/dl (32.0-35.9); MEAN PLT VOLUME 7.4 fl (7.5-11.1); PLATELET COUNT 143 K/MM3 (134-434); RBC 2.92 M/mm3 (4.00-5.60); RDW 16.7 % (11.9-15.9); WHITE BLOOD COUNT 6.8 K/mm3 (4.0-10.0)
[2018-03-31] MEDS: PIPERACILLIN/TAZOB 4.5 GM 4.5 GM in DEXTROSE 5%-WATER 100 ML IVPB SCH (07:50)
[2018-03-31 07:58] LABS: ALBUMIN 2.2 g/dl (3.4-5.0); ALK PHOS 74 U/L (45-117); ANION GAP 10 MMOL/L (8-16); BILIRUBIN,TOTAL 0.7 mg/dL (0.2-1); BLOOD UREA NITROGEN 14 mg/dL (7-18); CALCIUM 8.2 mg/dL (8.5-10.1); CHLORIDE 102 mmol/L (98-107); CO2 30 mmol/L (21-32); CREATININE 0.8 mg/dL (0.55-1.3); GLUCOSE,RANDOM 256 mg/dL (74-106); SGOT/AST 11 U/L (15-37); SGPT/ALT 28 U/L (13-61); SODIUM 143 mmol/L (136-145); TOT PROT 4.8 g/dl (6.4-8.2)
[2018-03-31 07:59] LABS: POTASSIUM 2.9 mmol/L (3.5-5.1)
--- NOTE | 2018-03-31 08:50 | PN ---
Progress Note (short form) - Note Progress Note: NEUROSURGERY POD #3 On 9 W No H/A, No N/V, no sz No diplopia PE: Tmax 99.1, AF, VSS Incision C/D/I General- unremarkable CN- nonfocal; motor- L LE 4+-5/5 Scalp drainage- staph epi, E Coli cavity fluid gram stain- gram positive baccili, PMN's; negative x [address]- postop changes R frontal lobe, edema Brain abscess: s/p craniectomy, debridement, Ommaya reservoir removal Stable neurologically Cont iv abx- on amp, cefepime and flagyl currently per ID OOB/mobilize PT ordered Check final culture and sensitivity
[2018-03-31] MEDS: LACTOBACILLUS ACIDOPHILUS 1 TABLET PO SCH (09:11)
[2018-03-31] MEDS: FERROUS SO4 325 MG TABLET (FP) PO SCH ×2 (09:11→21:44)
[2018-03-31] MEDS: DIGOXIN 0.25 MG TABLET (FP) PO SCH (09:12)
[2018-03-31] MEDS: HYDROCORTISONE SOD SUCCINATE 100 MG/2 ML VIAL IVPUSH SCH ×2 (09:12→21:59)
[2018-03-31] MEDS: ASCORBIC ACID 500 MG TABLET (FP) PO SCH (09:14)
[2018-03-31] MEDS ORDERED: KCL 10 MEQ IVPB 10 MEQ/100 ML INFUS.BAG IVPB SCH (09:15)
[2018-03-31 09:33] LABS: MAGNESIUM 1.8 mg/dL (1.8-2.4); PHOSPHOROUS 2.2 mg/dL (2.5-4.9)
[2018-03-31] MEDS ORDERED: PANTOPRAZOLE SODIUM 40 MG VIAL IVPUSH SCH (10:00)
--- NOTE | 2018-03-31 10:01 | PN ---
Teaching Attending Note Name of Resident: Dileep Valenzuela ATTENDING PHYSICIAN STATEMENT I saw and evaluated the patient. I reviewed the resident's note and discussed the case with the resident. I agree with the resident's findings and plan as documented. SUBJECTIVE: No fever or chills. No ROBERTS or visual changes. . OBJECTIVE: NAD , Awake HEENT: round equal pupils , reactive to light , MMM, no facial droop. surgical wound with jeannie. no drainage CC: RRR. no MRG Lungs: CTAB Ext: no edema NEuro : round equal reactive pupils, no facial droop. tongue and uvula at mid line. strength 5/5 in R upper and lower extremities, proximally and distally. LUE strength 5/5 at shoulder , elbow and wrist . LLE : 4/5 hip flexion. 3/5 knee flexion and extension. 5/5 plantar flexion and extension ASSESSMENT AND PLAN: 62 year-old man with a PMH of metastatic melanoma , HTN, afib, NIDDM, adrenal insufficiency, COPD, HLP, nephrectomy, metastatic melanoma s/p cracneotomy 5 years ago, s/p re-do craniotomy 01/24 fro fluid collection, and Ommaya cath placement, T7-8 disc herniation s/p spinal sx in 02/24 , who presented with fever and purulent drainage from scalp incision site. He was found to have R frontal collection 1- R frontal abscess: s/p craniotomy, debridement, and drainage. - cont Abx. - follow final cx 2- H/o A fib: in sinus rhythm on EKG. - cont home dig and toprol - not on AC 3- H/o adrenal insufficiency:cont BID dosing today and once tomorrow then switch to home dose 5- DM : add levemir for now 6- h/o metastatic melanoma: out pt follow up heparin sq PT
--- NOTE | 2018-03-31 10:11 | PN ---
Physical Exam: SUBJECTIVE: Patient seen and examined at bedside this morning. He is POD #3 after craniotomy, abscess debridement,and Ommaya catheter removal. Admits he slept well last night, though he states he is still tired. Complains spasm of left hand that began today. Admits similar occurrence after last craniotomy that lasted approx. 1 week. He does not recall any workup or treatment at that time. Denies parasthesias, weakness, or trauma. Admits one semi-soft bowel movement overnight without meredith blood or melena. Urinating well without tinajero catheter, without dysuria or hematuria. Tolerating diabetic diet without abdominal pain, nausea or vomiting. Denies fevers, chills, shortness of breath, chest pain, palpitations. OBJECTIVE: Vital Signs Period Temp Pulse Resp BP Sys/Betancourt Pulse Ox Last 24 Hr 98.1 F-99.4 F 78-99 18-20 115-155/60-88 98 GENERAL: The patient is awake, alert, and fully oriented, in no acute distress. HEAD: S/P craniotomy. scar visualized, clean cutures. No active draining. EYES: PERRLA, extraocular movements intact b/l. No nystagmus b/l. Sclera anicteric, conjunctiva clear. ENT: Oropharynx clear without exudates or lesions. Moist mucous membranes. NECK: Trachea midline, Supple without lymphadenopathy. LUNGS: Good inspiratory effort. Breath sounds equal, clear to auscultation bilaterally. No wheezes. No accessory muscle use. HEART: Irregular rate and rhythm. S1, S2 auscultated without murmur appreciated. ABDOMEN: Soft, nontender, nondistended. Normoactive bowel sounds x4 quadrants. No guarding, no rebound. No hepatosplenomegaly appreciated.. EXTREMITIES: 2+ radial and dorsalis pedis pulses. Warm. No lower extremity edema b/l. NEUROLOGICAL: Cranial nerves II through XII grossly intact. Normal speech. Strength 5/5 b/l upper extremities in flexion, extension, abduciton, adduction. Biceps reflex 2+ b/l. Strength 5/5 right lower extremity in hip flexion, extension and knee flexion, extension. Patellar and Achilles tendon reflex 2+ b/ l. 5/5 in left lower extremity hip flexion, extension and 4/5 knee flexion, extension. 1+ left patellar reflex, 2+ left Achilles tendon. Plantarflexion and dorsiflexion 5/5 b/l. Sensation intact b/l upper and lower extremities. PSYCH: Blunted affect upon my encounter today. Laboratory Results - last 24 hr 03/30/18 03/30/18 03/30/18 05:30 05:38 11:13 WBC RBC Hgb Hct MCV MCH MCHC RDW Plt Count MPV Neutrophils % (Manual) 90.9 H Band Neutrophils % 1.0 Lymphocytes % (Manual) 1.0 L D Monocytes % (Manual) 5 Eosinophils % (Manual) 0.0 Basophils % (Manual) 0.0 Myelocytes % (Man) 1 D Promyelocytes % (Man) 0 Blast Cells % (Manual) 0 Nucleated RBC % 0 Metamyelocytes 1 D Hypochromia 0 Platelet Estimate Decreased Polychromasia 0 Poikilocytosis 0 Anisocytosis 1+ Microcytosis 0 Macrocytosis 1+ Sodium Potassium Chloride Carbon Dioxide Anion Gap BUN Creatinine Creat Clearance w eGFR POC Glucometer [phone] Random Glucose Calcium Phosphorus Magnesium Total Bilirubin AST ALT Alkaline Phosphatase Total Protein Albumin 03/30/18 03/31/18 03/31/18 19:30 00:33 06:08 WBC RBC Hgb Hct MCV MCH MCHC RDW Plt Count MPV Neutrophils % (Manual) Band Neutrophils % Lymphocytes % (Manual) Monocytes % (Manual) Eosinophils % (Manual) Basophils % (Manual) Myelocytes % (Man) Promyelocytes % (Man) Blast Cells % (Manual) Nucleated RBC % Metamyelocytes Hypochromia Platelet Estimate Polychromasia Poikilocytosis Anisocytosis Microcytosis Macrocytosis Sodium Potassium Chloride Carbon Dioxide Anion Gap BUN Creatinine Creat Clearance w eGFR POC Glucometer 324 255 Random Glucose 538 H* Calcium Phosphorus Magnesium Total Bilirubin AST ALT Alkaline Phosphatase Total Protein Albumin 03/31/18 03/31/18 06:30 06:30 WBC 6.8 RBC 2.92 L Hgb 9.6 L Hct 28.0 L MCV 96.0 MCH 32.8 MCHC 34.2 RDW 16.7 H Plt Count 143 MPV 7.4 L Neutrophils % (Manual) Band Neutrophils % Lymphocytes % (Manual) Monocytes % (Manual) Eosinophils % (Manual) Basophils % (Manual) Myelocytes % (Man) Promyelocytes % (Man) Blast Cells % (Manual) Nucleated RBC % Metamyelocytes Hypochromia Platelet Estimate Polychromasia Poikilocytosis Anisocytosis Microcytosis Macrocytosis Sodium 143 Potassium 2.9 L* Chloride 102 Carbon Dioxide 30 Anion Gap 10 BUN 14 Creatinine 0.8 Creat Clearance w eGFR > 60 POC Glucometer Random Glucose 256 H Calcium 8.2 L Phosphorus 2.2 L Magnesium 1.8 Total Bilirubin 0.7 AST 11 L ALT 28 Alkaline Phosphatase 74 Total Protein 4.8 L Albumin 2.2 L Active Medications Generic Name Dose Route Start Last Admin Trade Name Zionq PRN Reason Stop Dose Admin Ascorbic Acid 250 mg 03/31/18 10:00 03/31/18 09:14 Vitamin C - PO 250 mg DAILY SEBASTIÁN Administration Budesonide/Formoterol Fumarate 1 puff 03/30/18 22:00 03/31/18 09:14 Symbicort 160/4.5mcg - IH 1 puff BID SEBASTIÁN Administration Digoxin 0.25 mg 03/31/18 10:00 03/31/18 09:12 Lanoxin - PO 0.25 mg DAILY SEBASTIÁN Administration Docusate Sodium 100 mg 03/30/18 22:00 03/31/18 05:36 Colace - PO 100 mg TID SEBASTIÁN Administration Ferrous Sulfate 325 mg 03/30/18 22:00 03/31/18 09:11 Feosol - PO 325 mg BID SEBASTIÁN Administration Gabapentin 600 mg 03/30/18 22:00 03/31/18 05:36 Neurontin - PO 600 mg TID SEBASTIÁN Administration Heparin Sodium (Porcine) 5,000 unit 03/30/18 22:00 03/31/18 05:36 Heparin - SQ 5,000 unit TID SEBASTIÁN Administration Hydrocortisone Sodium Succinate 25 mg 03/30/18 10:06 03/31/18 09:12 Solu-Cortef - IVPUSH 25 mg BID SEBASTIÁN Administration Hydromorphone HCl 0.5 mg 03/30/18 16:53 Dilaudid Vial - IVPUSH Q4H PRN PAIN LEVEL 6-10 Ampicillin Sodium 2 gm/ Sodium 100 mls @ 200 mls/hr 03/30/18 18:00 03/31/18 06:02 Chloride IVPB 200 mls/hr Q4H-IV SEBASTIÁN Administration Cefepime HCl 2 gm/ Dextrose 100 mls @ 200 mls/hr 03/30/18 18:00 03/31/18 01: 42 IVPB 200 mls/hr Q8H-IV SEBASTIÁN Administration Protocol Metronidazole 500 mg in 100 mls @ 100 mls/hr 03/30/18 18:00 03/31/18 09:11 Flagyl 500mg Premixed Ivpb - IVPB 100 mls/hr Q8H-IV SEBASTIÁN Administration Vancomycin HCl 1,000 mg/ 250 mls @ 200 mls/hr 03/30/18 17:15 03/30/18 17:17 Dextrose IVPB 200 mls/hr Q24H SEBASTIÁN Administration Protocol Insulin Aspart 1 vial 03/30/18 14:09 03/31/18 06:16 Novolog Vial Sliding Scale - SQ 7 units ACHS SEBASTIÁN Administration Protocol Lactobacillus Acidophilus 1 tab 03/31/18 10:00 03/31/18 09:11 Bacid - PO 1 tab DAILY SEBASTIÁN Administration Metoprolol Succinate 50 mg 03/30/18 22:00 03/30/18 22:30 Toprol Xl - PO 50 mg HS SEBASTIÁN Administration Metoprolol Succinate 100 mg 03/31/18 07:00 03/31/18 09:11 Toprol Xl - PO 100 mg DAILY@0700 SEBASTIÁN Administration Non-Formulary Medication 15 gm 03/30/18 16:53 Levalbuterol Tartrate [Xopenex Hfa] IH Q4H PRN SHORTNESS OF BREATH Ondansetron HCl 4 mg 03/30/18 16:53 Zofran Injection IVPUSH Q6H PRN NAUSEA Pantoprazole Sodium 40 mg 03/31/18 10:00 03/31/18 09:12 Protonix Iv IVPUSH 40 mg DAILY SEBASTIÁN Administration Potassium Chloride 40 meq 03/31/18 09:34 K-Dur - PO 03/31/18 09:35 ONCE ONE IMAGING: CT head: Nonspecific right frontal rim enhancing lesion 3.4 x 3.4 x 3.3 cm concerning for abscess vs. neoplastic disease. MRI head: Vasogenic edema of right frontal lobe. Findings suggestive of abscess with subdural empyema CT head (post-operative): Vasogenic edema right frontal lobe. No herniation, hydrocephalus. No acute ischemic changes. ASSESSMENT/PLAN: Patient is a 62 year old male with history of stage four melanoma (s/p recent revision of craniotomy in January d/t leaking cyst), Afib (not on anticoagulation) , HTN, DM, COPD, presents with complaint of yellow, sticky discharge from Ommaya catheter for approx. 10 days and new left lower extremity weakness. Brain abscess -Patient is POD #3 s/p craniotomy. -ID consult (Dr. Wilhelm) appreciated: Empiric coverage with Vancomycin 1250mg Q12H, Cefepime 2gm Q8H IV, Flagy 500mg Q8H IV. Ampicillin 2gm IV Q4H Reinstate Vancomycin 1gram Q24H. -Wound cultures (from scalp) grow gram positive bacilli. Staph coagulase negative, E. coli, strep viridians -CSF cultures negative at 46 hours -Blood cultures- negative for growth at 72 hours -Tylenol 650mg PO Q6H PRN for pain 1-5 -Dilaudid 0.5mg IV Q4H for pain 6-10 Fevers -Unclear etiology. May be due to atelectasis, vs. C.diff vs. DVT. -F/U chest xray -Encourage continuous use of incentive spirometer -B/L lower extremity duplex US to rule out DVT -F/U stool for C.diff -Will consider blood cultures if fever progresses. Hypokalemia, hypophosphatemia -Potassium 2.9, Mg1.8, Phos 2.2 -Replete with 40meq K-dur PO -Phos NaK 2X packets -Will F/U Potassium and Phosphorus after repletion -K-Phos at 15mm IV started Adrenal Insufficiency -Endocrinology (Dr. Martinez) consult appreciated. -Hydocortisone lowered to 25mg BID Afib -Not on anticoagulation d/t history of GI bleed ?diverticulitis in 2016 -Continue Metoprolol 100mg PO AM, 50mg PO HS -Continue Digoxin 0.25mg PO daily HTN -Continue Metoprolol 100mg PO AM, 50mg PO HS DM -Begin Levemir 15 units subq in the mornings -ISS (scale and dosage updated) -BGM ACHS FEN -Patient tolerating PO fluids. Encourage judicious hydration. -Follow CMP -Diabetic diet Prophylaxis -Heparin 5000units subq TID Disposition -Continue care in medical-surgical floor Visit type - Emergency Visit Emergency Visit: Yes ED Registration Date: 03/27/18 Care time: The patient presented to the Emergency Department on the above date and was hospitalized for further evaluation of their emergent condition. - New Patient This patient is new to me today: No - Critical Care Critical Care patient: No - Discharge Referral Referred to [facility] No
[2018-03-31] MEDS ORDERED: POTASSIUM CHLORIDE TABS 20 MEQ TABLET.ER (FP) PO ONE (10:15)
[2018-03-31] MEDS ORDERED: INSULIN (NOVOLOG) ASPART 100 UNITS/ML 10ML VIAL ONE ×6 (11:37→21:32)
--- NOTE | 2018-03-31 11:52 | PN ---
Progress Note (short form) - Note Progress Note: feels fatigued awake and alert Vital Signs Period Temp Pulse Resp BP Sys/Betancourt Pulse Ox Last 24 Hr 98.1 F-99.4 F 78-99 18-20 115-155/61-88 98 cor-rrr lungs clear abd soft, nt ext no edema CBC, BMP 03/31/18 06:30 03/31/18 06:30 Microbiology 03/27/18 15:29 Blood - Peripheral Venous Blood Culture - Preliminary NO GROWTH OBTAINED AFTER 72 HOURS, INCUBATION TO CONTINUE FOR 2 DAYS. 03/27/18 15:20 Blood - Peripheral Venous Blood Culture - Preliminary NO GROWTH OBTAINED AFTER 72 HOURS, INCUBATION TO CONTINUE FOR 2 DAYS. 03/28/18 13:31 Catheter Tip - Catheter - Other Foreign Body Culture - Final NO GROWTH AFTER 48 HOURS INCUBATION 03/28/18 13:28 Cerebral Spinal Fluid - Shunt-Csf Gram Stain - Final 03/28/18 13:28 Cerebral Spinal Fluid - Shunt-Csf CSF Culture - Preliminary 03/28/18 11:49 Body Fluid - Other Gram Stain - Final 03/28/18 11:49 Body Fluid - Other Body Fluid Culture - Preliminary NO AEROBIC GROWTH, 24 HRS 03/28/18 11:49 Body Fluid - Other Anaerobic Culture - Preliminary 03/28/18 11:49 Body Fluid - Other Gram Stain - Final 03/28/18 11:49 Body Fluid - Other Body Fluid Culture - Preliminary NO AEROBIC GROWTH, 24 HRS 03/28/18 11:49 Body Fluid - Other Anaerobic Culture - Preliminary 03/27/18 22:23 Head Gram Stain - Final 03/27/18 22:23 Head Wound Culture - Preliminary Staphylococcus Coagulase Neg Streptococcus Viridans 03/28/18 10:43 Head Gram Stain - Final 03/28/18 10:43 Head Wound Culture - Preliminary Staphylococcus Coagulase Neg Escherichia Coli 03/27/18 15:36 Urine - Urine Clean Catch Urine Culture - Final NO GROWTH OBTAINED 03/28/18 11:38 Head Gram Stain - Final 03/28/18 00:00 Nasopharyngeal Swab Influenza Types A,B Antigen - Final 03/28/18 00:00 Nasopharyngeal Swab - Final a/p pod#3 s/p craniotomy awaiting cultures to narrow antibiotic therapy stage 4 melanoma solitary kidney replete potassium d/w Hospitalist earlier today
[2018-03-31] MEDS ORDERED: NAPH,MB-DB/K PH,MBDB POWDER PACKET PO ONE (12:17)
[2018-03-31 14:20] LABS: PHOSPHOROUS 1.7 mg/dL (2.5-4.9); POTASSIUM 3.2 mmol/L (3.5-5.1)
[2018-03-31] MEDS ORDERED: INSULIN (LEVEMIR) 100 UNITS/ML UNITS SQ ONE ×2 (15:17→16:43)
[2018-03-31] MEDS ORDERED: POTASSIUM PHOSPHATE 15 MM in SODIUM CHLORIDE 245 ML IVPB ONE (16:00)
[2018-03-31] MEDS: VANCOMYCIN 1,000 MG in DEXTROSE 5%-WATER - 250 ML IVPB SCH (16:28)
[2018-03-31] MEDS: ACETAMINOPHEN 325 MG TABLET (FP) PO PRN (16:50)
--- NOTE | 2018-03-31 16:52 | HOSP ---
Subjective - Review of Symptoms Events since last encounter: fever this afternoon. pt seen , feels tired. no pain or cough. annoyed by the L hand tremors. Lungs: fine crackles at R base. L leg edema > R . no tenderness ( L leg is always swollen per ) a/p fever : could be due to atelectasis. unlikely PNA or other infection as on broad spectrum Abx . no diarrhea . - check c diff if diarrhea - US to r/o DVT - check Cxray - if higher fever, will send blood cx - incentive spirometer d/w patient and Physical Examination Vital Signs: Vital Signs Temperature 100.0 F H 03/31/18 15:50 Pulse Rate 91 H 03/31/18 15:50 Respiratory Rate 18 03/31/18 15:50 Blood Pressure 126/67 03/31/18 15:50 O2 Sat by Pulse Oximetry (%) 95 03/31/18 09:00 Labs: CBC, BMP 03/31/18 06:30 03/31/18 13:05
[2018-04-01] MEDS: AMPICILLIN - 2 GM in SODIUM CHLORIDE 100 ML IVPB SCH ×7 (02:55→21:43)
[2018-04-01] MEDS ORDERED: PT OWN MED DRAWER 7, Y5N ONE ×4 (03:08→14:51)
[2018-04-01] MEDS: CEFEPIME 2 GM in DEXTROSE 5%-WATER 100 ML IVPB SCH ×2 (04:45→10:30)
[2018-04-01] MEDS: GABAPENTIN 300 MG CAPSULE (FP) PO SCH ×3 (06:38→22:18)
[2018-04-01] MEDS: DOCUSATE SODIUM 100 MG CAPSULE (FP) PO SCH ×3 (06:38→22:17)
[2018-04-01] MEDS: HEPARIN NA (PORCINE) 5,000 UNITS/ML 1ML VIAL SQ SCH ×3 (06:39→22:23)
[2018-04-01] MEDS: INSULIN SLIDING SCALE (NOVOLOG) 1 VIAL SQ SCH ×4 (06:44→22:14)
[2018-04-01] MEDS: INSULIN (LEVEMIR) 100 UNITS/ML UNITS SQ SCH (07:00)
[2018-04-01] MEDS ORDERED: INSULIN (LEVEMIR) 100 UNITS/ML UNITS SQ ONE (07:32)
[2018-04-01 07:48] LABS: HEMATOCRIT 27.8 % (35.4-49); HEMOGLOBIN 9.6 GM/dL (11.7-16.9); MCH 33.6 pg (25.7-33.7); MCHC 34.5 g/dl (32.0-35.9); MEAN CELL VOLUME 97.3 fl (80-96); MEAN PLT VOLUME 7.6 fl (7.5-11.1); PLATELET COUNT 154 K/MM3 (134-434); RBC 2.85 M/mm3 (4.00-5.60); RDW 16.4 % (11.9-15.9)
[2018-04-01 08:23] LABS: ANION GAP 10 MMOL/L (8-16); BLOOD UREA NITROGEN 14 mg/dL (7-18); CALCIUM 7.6 mg/dL (8.5-10.1); CHLORIDE 105 mmol/L (98-107); CO2 30 mmol/L (21-32); CREATININE 0.8 mg/dL (0.55-1.3); GLUCOSE,RANDOM 221 mg/dL (74-106); MAGNESIUM 1.7 mg/dL (1.8-2.4); PHOSPHOROUS 3.1 mg/dL (2.5-4.9); POTASSIUM 3.5 mmol/L (3.5-5.1); SODIUM 145 mmol/L (136-145)
[2018-04-01] MEDS: DIGOXIN 0.25 MG TABLET (FP) PO SCH (09:26)
[2018-04-01] MEDS: FERROUS SO4 325 MG TABLET (FP) PO SCH ×2 (09:26→22:17)
[2018-04-01] MEDS: LACTOBACILLUS ACIDOPHILUS 1 TABLET PO SCH (09:26)
[2018-04-01] MEDS: HYDROCORTISONE SOD SUCCINATE 100 MG/2 ML VIAL IVPUSH SCH (09:27)
[2018-04-01] MEDS: ASCORBIC ACID 500 MG TABLET (FP) PO SCH (09:28)
[2018-04-01] MEDS: BUDESONIDE/FORMETEROL FUMARATE 160/4.5 mcg INHALER IH SCH ×2 (09:28→22:25)
[2018-04-01] MEDS: PANTOPRAZOLE 40 MG TABLET (FP) PO SCH (09:28)
--- NOTE | 2018-04-01 09:32 | PN ---
Progress Note (short form) - Note Progress Note: NEUROSURGERY POD #4 On 8W No H/A, No N/V, no sz No diplopia PE: Tmax 99.9, VSS Incision C/D/I General- unremarkable CN- nonfocal; motor- L LE 4+-5/5 WBC 7, K 3.5 CXR- bibasilar atelectasis LE doppler pending Scalp drainage- staph epi, E Coli cavity fluid gram stain- gram positive baccili, PMN's; proprionibacterium Head CT- postop changes R frontal lobe, edema Brain abscess: s/p craniectomy, debridement, Ommaya reservoir removal Stable neurologically Care d/w ID and medical team Cont iv abx- on amp/vanco, cefepime and flagyl currently per ID OOB/mobilize PT
[2018-04-01] MEDS ORDERED: INSULIN (LEVEMIR) 100 UNITS/ML UNITS SQ SCH (10:00)
[2018-04-01] MEDS ORDERED: MAGNESIUM SULF 50% (8.12 MEQ/2 ML-1 GM VIAL) IVPB ONE (10:23)
--- NOTE | 2018-04-01 10:29 | PN ---
Progress Note (short form) - Note Progress Note: Subjective: feels better today. has no fever or chills. still tremors and twitching in his L hand Objective: Vital Signs: Last Vital Signs Temp Pulse Resp BP Pulse Ox 98.2 F 76 18 139/74 96 04/01/18 09:22 04/01/18 09:26 04/01/18 09:22 04/01/18 09:22 03/31/18 21:00 Laboratory Results - last 24 hr 03/28/18 03/31/18 03/31/18 06:20 11:31 13:05 WBC RBC Hgb Hct MCV MCH MCHC RDW Plt Count MPV Sodium Potassium 3.2 L Chloride Carbon Dioxide Anion Gap BUN Creatinine Creat Clearance w eGFR POC Glucometer 339 Random Glucose Calcium Phosphorus 1.7 L Magnesium Crossmatch IS Only See Detail 03/31/18 03/31/18 04/01/18 16:46 21:39 06:30 WBC 7.0 RBC 2.85 L Hgb 9.6 L Hct 27.8 L MCV 97.3 H MCH 33.6 MCHC 34.5 RDW 16.4 H Plt Count 154 MPV 7.6 Sodium Potassium Chloride Carbon Dioxide Anion Gap BUN Creatinine Creat Clearance w eGFR POC Glucometer 304 315 Random Glucose Calcium Phosphorus Magnesium Crossmatch IS Only 04/01/18 04/01/18 06:30 06:46 WBC RBC Hgb Hct MCV MCH MCHC RDW Plt Count MPV Sodium 145 Potassium 3.5 Chloride 105 Carbon Dioxide 30 Anion Gap 10 BUN 14 Creatinine 0.8 Creat Clearance w eGFR > 60 POC Glucometer 212 Random Glucose 221 H Calcium 7.6 L Phosphorus 3.1 Magnesium 1.7 L Crossmatch IS Only Physical Exam: NAD , Awake HEENT: round equal pupils , surgical wound on scalp with no drainage or erythema CC: RRR. no MRG Lungs: CTAB Ext: LLE edema, no erythema or tenderness . twitching of L hand NEuro : round equal reactive pupils, no facial droop. tongue and uvula at mid line. strength 5/5 in R upper and lower extremities, proximally and distally. LUE strength 5/5 at shoulder , elbow and wrist . LLE : 4/5 hip flexion. 3/5 knee flexion and extension. 5/5 plantar flexion and extension ASSESSMENT AND PLAN: 62 year-old man with a PMH of metastatic melanoma , HTN, afib, NIDDM, adrenal insufficiency, COPD, HLP, nephrectomy, metastatic melanoma s/p cracneotomy 5 years ago, s/p re-do craniotomy 01/24 fro fluid collection, and Ommaya cath placement, T7-8 disc herniation s/p spinal sx in 02/24 , who presented with fever and purulent drainage from scalp incision site. He was found to have R frontal collection 1- R frontal abscess: s/p craniotomy, debridement, and drainage. - new cx results revioed ( propriobactrium) d/w ID. follow sensitivity and dc ampicillin - d/w Dr. Simmons, the staph epi seen on cx are from skin superficially before craniotomy 2- H/o A fib: - cont home dig and toprol - not on AC 3- H/o adrenal insufficiency: one dose of hydrocortisone this am , then switch to home dose of 5 in am and 2.5 in HS 5- DM : cont levemir and SSI . might be able to cut down after steroids taper 6- h/o metastatic melanoma: out pt follow up heparin sq PT Visit type - Emergency Visit Emergency Visit: Yes ED Registration Date: 03/27/18 Care time: The patient presented to the Emergency Department on the above date and was hospitalized for further evaluation of their emergent condition. - New Patient This patient is new to me today: No - Critical Care Critical Care patient: No
[2018-04-01] MEDS ORDERED: VANCOMYCIN 1,000 MG in SODIUM CHLORIDE 250 ML IVPB SCH (10:39)
[2018-04-01] MEDS ORDERED: CEFEPIME 2 GM in SODIUM CHLORIDE 100 ML IVPB SCH (10:40)
--- NOTE | 2018-04-01 10:48 | PN ---
Progress Note (short form) - Note Progress Note: feels better today, less fatigued soft bm yesterday fever yesterday Vital Signs Period Temp Pulse Resp BP Sys/Betancourt Pulse Ox Last 24 Hr 98.2 F-100.6 F 76-91 18-20 126-139/67-74 96 cor-rrr lungs clear abd soft,nt ext no phlebitis CBC, BMP 04/01/18 06:30 04/01/18 06:30 Microbiology 03/28/18 11:49 Body Fluid - Other Gram Stain - Final 03/28/18 11:49 Body Fluid - Other Body Fluid Culture - Preliminary NO AEROBIC GROWTH, 24 HRS 03/28/18 11:49 Body Fluid - Other Anaerobic Culture - Preliminary Propionibacterium Acnes 03/27/18 15:29 Blood - Peripheral Venous Blood Culture - Preliminary NO GROWTH OBTAINED AFTER 96 HOURS, INCUBATION TO CONTINUE FOR 1 DAYS. 03/27/18 15:20 Blood - Peripheral Venous Blood Culture - Preliminary NO GROWTH OBTAINED AFTER 96 HOURS, INCUBATION TO CONTINUE FOR 1 DAYS. 03/27/18 22:23 Head Gram Stain - Final 03/27/18 22:23 Head Wound Culture - Preliminary Staphylococcus Epidermidis Streptococcus Viridans 03/28/18 10:43 Head Gram Stain - Final 03/28/18 10:43 Head Wound Culture - Final Staphylococcus Epidermidis Escherichia Coli 03/28/18 13:28 Cerebral Spinal Fluid - Shunt-Csf Gram Stain - Final 03/28/18 13:28 Cerebral Spinal Fluid - Shunt-Csf CSF Culture - Final 03/28/18 11:49 Body Fluid - Other Gram Stain - Final 03/28/18 11:49 Body Fluid - Other Body Fluid Culture - Preliminary NO AEROBIC GROWTH, 24 HRS 03/28/18 11:49 Body Fluid - Other Anaerobic Culture - Preliminary 03/28/18 13:31 Catheter Tip - Catheter - Other Foreign Body Culture - Final NO GROWTH AFTER 48 HOURS INCUBATION 03/27/18 15:36 Urine - Urine Clean Catch Urine Culture - Final NO GROWTH OBTAINED 03/28/18 11:38 Head Gram Stain - Final 03/28/18 00:00 Nasopharyngeal Swab Influenza Types A,B Antigen - Final 03/28/18 00:00 Nasopharyngeal Swab - Final cxray atelectasis a/p pod#3 s/p craniotomy awaiting cultures to narrow antibiotic therapy d/c cefepime, switch to ceftriaxone fever yesterday- ?atelectasis repeat blood cultures if fevers recur duplex pending incentive spirometry check vanco trough in am stage 4 melanoma solitary kidney d/w Hospitalist earlier today d/w Dr Simmons
[2018-04-01] MEDS ORDERED: INSULIN (NOVOLOG) ASPART 100 UNITS/ML 10ML VIAL ONE (12:22)
[2018-04-01] MEDS ORDERED: DEXTROSE 5%-WATER 100 ML IVPB ONE (14:48)
[2018-04-01] MEDS ORDERED: CEFTRIAXONE 2 GM in DEXTROSE 5%-WATER 100 ML IVPB SCH (15:00)
[2018-04-01] MEDS: VANCOMYCIN 1,000 MG in SODIUM CHLORIDE 250 ML IVPB SCH (16:29)
[2018-04-01] MEDS ORDERED: CEFTRIAXONE 2 GM-D5W BAG 2 GM/50 ML BAG IVPB SCH (18:00)
[2018-04-01] MEDS ORDERED: predniSONE 2.5 MG TABLET PO SCH (22:00)
[2018-04-01] MEDS: predniSONE 5 MG TABLET (UD) PO SCH (22:17)
[2018-04-02] MEDS: AMPICILLIN - 2 GM in SODIUM CHLORIDE 100 ML IVPB SCH ×6 (01:28→21:37)
[2018-04-02] MEDS: DOCUSATE SODIUM 100 MG CAPSULE (FP) PO SCH ×3 (06:10→21:34)
[2018-04-02] MEDS: GABAPENTIN 300 MG CAPSULE (FP) PO SCH ×3 (06:10→21:36)
[2018-04-02] MEDS: HEPARIN NA (PORCINE) 5,000 UNITS/ML 1ML VIAL SQ SCH ×3 (06:11→21:37)
[2018-04-02] MEDS: INSULIN (LEVEMIR) 100 UNITS/ML UNITS SQ SCH (06:48)
[2018-04-02] MEDS: INSULIN SLIDING SCALE (NOVOLOG) 1 VIAL SQ SCH ×4 (06:48→21:38)
--- NOTE | 2018-04-02 08:02 | PN ---
Progress Note (short form) - Note Progress Note: Pt seen and examined. States he is feeling well today. Looking forward to working with PT today, hoping to walk. Was oob to chair yesterday. Tolerating Po , +voiding, +BMS. Denies cp/sob, n/v/d, h/a, calf pain/edema. Had some visual disturbances Monday which have resolved. Vital Signs Temp 99.2 F 04/02/18 06:00 Pulse 69 04/02/18 06:00 Resp 22 H 04/02/18 06:00 BP 137/69 04/02/18 06:00 Pulse Ox 93 L 04/01/18 21:00 Intake & Output 04/01/18 04/01/18 04/02/18 11:59 23:59 11:59 Intake Total 1050 Output Total 700 Balance 350 Weight 184 lb 7 oz 186 lb 6.4 oz Intake: IVPB 1050 Output: Urine 700 Void 700 Other: Voiding Method Urinal Urinal Weight Measurement Method Built in [facility] Built in [facility] CBC, BMP 04/01/18 06:30 Gen: awake, alert, nad, laying in bed watching TV H: Incision c/d/i, no erythema, no drainage. No facial droop, tongue protrudes midline Ext: B/L UE [employer] Representative strength intact, RUE 5/5 biceps/triceps/WF/WE, RLE 5/5 DF/PF, LUE 4+/5 biceps, 4+/5 triceps, LLE 3+/5 PF/DF, SILT equal b/l UEs/LEs 2+ PT b/l les, DP not appreciated 62 y/o M w/ PMHx Afib, T2DM, HTN, stage 4 melanoma, nephrectomy for metastasis, Adrenal insufficiency and 2 craniotomies the most recent being 01/24 who is now admitted 03/27 with fevers and drainage from scalp incision, s/p craniectomy, debridement, Ommaya reservoir removal on 03/28. Micro: Scalp drainage- staph epi, E Coli Cavity fluid gram stain- gram positive baccili, PMN's; proprionibacterium Exam stable, incision c/d/i. Low grade fever this AM (99.2). Cont iv abx- on amp/vanco, ceftriaxone and flagyl currently per ID OOB/mobilize Incentive spirometry DVT prophylaxis
[2018-04-02 08:03] LABS: MAGNESIUM 1.9 mg/dL (1.8-2.4); PHOSPHOROUS 2.7 mg/dL (2.5-4.9)
--- NOTE | 2018-04-02 08:09 | PN ---
Progress Note (short form) - Note Progress Note: NEUROSURGERY POD #5 On 8W No H/A, No N/V, no sz No diplopia tolerating diet well PE: Tmax 99.2, VSS Incision C/D/I General- unremarkable CN- nonfocal; motor- L LE 4+-5/5 CXR- bibasilar atelectasis LE doppler negative for DVT Scalp drainage- staph epi, E Coli resection cavity fluid- proprionibacterium Head CT- postop changes R frontal lobe, edema Brain abscess: s/p craniectomy, debridement, Ommaya reservoir removal Stable neurologically Care d/w ID and medical team Cont iv abx- on amp/vanco, ceftriaxone and flagyl currently per ID OOB/mobilize Incentive spirometry DVT prophylaxis PT
[2018-04-02] MEDS ORDERED: PT OWN MED DRAWER 7, Y5N ONE ×4 (09:57→17:30)
[2018-04-02] MEDS ORDERED: POTASSIUM CHLORIDE TABS 20 MEQ TABLET.ER (FP) PO ONE ×2 (10:00→15:31)
[2018-04-02] MEDS: LACTOBACILLUS ACIDOPHILUS 1 TABLET PO SCH (10:46)
[2018-04-02] MEDS: ASCORBIC ACID 500 MG TABLET (FP) PO SCH (10:46)
[2018-04-02] MEDS: BUDESONIDE/FORMETEROL FUMARATE 160/4.5 mcg INHALER IH SCH ×2 (10:47→21:37)
[2018-04-02] MEDS: FERROUS SO4 325 MG TABLET (FP) PO SCH ×2 (10:47→21:36)
[2018-04-02] MEDS: PANTOPRAZOLE 40 MG TABLET (FP) PO SCH (10:47)
[2018-04-02] MEDS: DIGOXIN 0.25 MG TABLET (FP) PO SCH (10:48)
[2018-04-02] MEDS: predniSONE 5 MG TABLET (UD) PO SCH ×2 (10:48→21:35)
--- NOTE | 2018-04-02 11:52 | PN ---
Progress Note, Physician History of Present Illness: POD # 5 R frontal craniotomy, debridement/ abscess drainage, removal of Ommaya catheter Awake, alert, oriented Conversant Temps down Operative c/s P. acnes Wound c/s (swab of scalp) SCN/E coli WBC WNL - Current Medication List Current Medications: Active Medications Acetaminophen (Tylenol -) 650 mg PO Q6H PRN PRN Reason: TEMP > 100 Last Admin: 03/31/18 16:50 Dose: 650 mg Ascorbic Acid (Vitamin C -) 250 mg PO DAILY [facility] Last Admin: 04/02/18 10:46 Dose: 250 mg Budesonide/Formoterol Fumarate (Symbicort 160/4.5mcg -) 1 puff IH BID [facility] Last Admin: 04/02/18 10:47 Dose: 1 puff Digoxin (Lanoxin -) 0.25 mg PO DAILY [facility] Last Admin: 04/02/18 10:48 Dose: 0.25 mg Docusate Sodium (Colace -) 100 mg PO TID [facility] Last Admin: 04/02/18 06:10 Dose: Not Given Ferrous Sulfate (Feosol -) 325 mg PO BID [facility] Last Admin: 04/02/18 10:47 Dose: 325 mg Gabapentin (Neurontin -) 600 mg PO TID [facility] Last Admin: 04/02/18 06:10 Dose: 600 mg Heparin Sodium (Porcine) (Heparin -) 5,000 unit SQ TID [facility] Last Admin: 04/02/18 06:11 Dose: 5,000 unit Hydromorphone HCl (Dilaudid Vial -) 0.5 mg IVPUSH Q4H PRN PRN Reason: PAIN LEVEL 6-10 Ampicillin Sodium 2 gm/ Sodium (Chloride) 100 mls @ 200 mls/hr IVPB Q4H-IV [facility] Last Admin: 04/02/18 11:22 Dose: 200 mls/hr Metronidazole (Flagyl 500mg Premixed Ivpb -) 500 mg in 100 mls @ 100 mls/hr IVPB Q8H-IV [facility] Last Admin: 04/02/18 10:47 Dose: 100 mls/hr Ceftriaxone Sodium 2 gm/ (Dextrose) 100 mls @ 200 mls/hr IVPB Q24H [facility] Last Admin: 04/01/18 15:00 Dose: 200 mls/hr Vancomycin HCl 1,000 mg/ (Sodium Chloride) 250 mls @ 200 mls/hr IVPB Q24H [facility]; Protocol Last Admin: 04/01/18 16:29 Dose: 200 mls/hr Insulin Aspart (Novolog Vial Sliding Scale -) 1 vial SQ ACHS [facility]; Protocol Last Admin: 04/02/18 06:48 Dose: 5 units Insulin Detemir (Levemir Vial) 15 units SQ 0700 [facility] Last Admin: 04/02/18 06:48 Dose: 15 unit Lactobacillus Acidophilus (Bacid -) 1 tab PO DAILY [facility] Last Admin: 04/02/18 10:46 Dose: 1 tab Metoprolol Succinate (Toprol Xl -) 50 mg PO HS [facility] Last Admin: 04/01/18 22:18 Dose: 50 mg Metoprolol Succinate (Toprol Xl -) 100 mg PO DAILY@0700 [facility] Last Admin: 04/02/18 06:10 Dose: 100 mg Non-Formulary Medication (Levalbuterol Tartrate [Xopenex Hfa]) 15 gm IH Q4H PRN PRN Reason: SHORTNESS OF BREATH Ondansetron HCl (Zofran Injection) 4 mg IVPUSH Q6H PRN PRN Reason: NAUSEA Pantoprazole Sodium (Protonix -) 40 mg PO DAILY [facility] Last Admin: 04/02/18 10:47 Dose: 40 mg Prednisone (Deltasone -) 5 mg PO DAILY [facility] Last Admin: 04/02/18 10:48 Dose: 5 mg Prednisone (Deltasone -) 2.5 mg [address] [facility] Last Admin: 04/01/18 22:17 Dose: 2.5 mg - Objective Vital Signs: Vital Signs Temperature 99.2 F 04/02/18 06:00 Pulse Rate 85 04/02/18 10:48 Respiratory Rate 22 H 04/02/18 06:00 Blood Pressure 137/69 04/02/18 06:00 O2 Sat by Pulse Oximetry (%) 93 L 04/01/18 21:00 Constitutional: Yes: No Distress HENT: Yes: Other (scalp surgical wound healing well no erythema/ drainage) Cardiovascular: Yes: Regular Rate and Rhythm, S1, S2 Respiratory: Yes: CTA Bilaterally Gastrointestinal: Yes: Normal Bowel Sounds, Soft. No: Tenderness Labs: CBC, BMP 04/01/18 06:30 04/02/18 06:30 INR, PTT INR 1.18 (0.83-1.09) H 03/28/18 07:10 Assessment/Plan POD #5 R frontal craniotomy/ debridement/ abscess drainage/ removal of Ommaya Stage IV melanoma Solitary kidney Continue flagyl/ ampicillin / vancomycin
[2018-04-02 12:56] VITALS: BMI 30.9
--- NOTE | 2018-04-02 13:10 | PN ---
Progress Note, Physician History of Present Illness: 62 yr old white man with PMHx melanoma, s/p craniotomy 12/2017, thoracic vetebral surgery 01/2018, AF, HTN, DM, now admitted with fever and weakness. Pt had been undergoing physical therapy at home, but felt too weak to continue. - Current Medication List Current Medications: Active Medications Acetaminophen (Tylenol -) 650 mg PO Q6H PRN PRN Reason: TEMP > 100 Last Admin: 03/31/18 16:50 Dose: 650 mg Ascorbic Acid (Vitamin C -) 250 mg PO DAILY [facility] Last Admin: 04/02/18 10:46 Dose: 250 mg Budesonide/Formoterol Fumarate (Symbicort 160/4.5mcg -) 1 puff IH BID [facility] Last Admin: 04/02/18 10:47 Dose: 1 puff Digoxin (Lanoxin -) 0.25 mg PO DAILY [facility] Last Admin: 04/02/18 10:48 Dose: 0.25 mg Docusate Sodium (Colace -) 100 mg PO TID [facility] Last Admin: 04/02/18 06:10 Dose: Not Given Ferrous Sulfate (Feosol -) 325 mg PO BID [facility] Last Admin: 04/02/18 10:47 Dose: 325 mg Gabapentin (Neurontin -) 600 mg PO TID [facility] Last Admin: 04/02/18 06:10 Dose: 600 mg Heparin Sodium (Porcine) (Heparin -) 5,000 unit SQ TID [facility] Last Admin: 04/02/18 06:11 Dose: 5,000 unit Hydromorphone HCl (Dilaudid Vial -) 0.5 mg IVPUSH Q4H PRN PRN Reason: PAIN LEVEL 6-10 Ampicillin Sodium 2 gm/ Sodium (Chloride) 100 mls @ 200 mls/hr IVPB Q4H-IV [facility] Last Admin: 04/02/18 11:22 Dose: 200 mls/hr Metronidazole (Flagyl 500mg Premixed Ivpb -) 500 mg in 100 mls @ 100 mls/hr IVPB Q8H-IV [facility] Last Admin: 04/02/18 10:47 Dose: 100 mls/hr Vancomycin HCl 1,000 mg/ (Sodium Chloride) 250 mls @ 200 mls/hr IVPB Q24H [facility]; Protocol Last Admin: 04/01/18 16:29 Dose: 200 mls/hr Insulin Aspart (Novolog Vial Sliding Scale -) 1 vial SQ ACHS [facility]; Protocol Last Admin: 04/02/18 06:48 Dose: 5 units Insulin Detemir (Levemir Vial) 15 units SQ 0700 [facility] Last Admin: 04/02/18 06:48 Dose: 15 unit Lactobacillus Acidophilus (Bacid -) 1 tab PO DAILY [facility] Last Admin: 04/02/18 10:46 Dose: 1 tab Metoprolol Succinate (Toprol Xl -) 50 mg PO [facility] Last Admin: 04/01/18 22:18 Dose: 50 mg Metoprolol Succinate (Toprol Xl -) 100 mg PO DAILY@0700 [facility] Last Admin: 04/02/18 06:10 Dose: 100 mg Non-Formulary Medication (Levalbuterol Tartrate [Xopenex Hfa]) 15 gm IH Q4H PRN PRN Reason: SHORTNESS OF BREATH Ondansetron HCl (Zofran Injection) 4 mg IVPUSH Q6H PRN PRN Reason: NAUSEA Pantoprazole Sodium (Protonix -) 40 mg PO DAILY [facility] Last Admin: 04/02/18 10:47 Dose: 40 mg Prednisone (Deltasone -) 5 mg PO DAILY [facility] Last Admin: 04/02/18 10:48 Dose: 5 mg Prednisone (Deltasone -) 2.5 mg PO [facility] Last Admin: 04/01/18 22:17 Dose: 2.5 mg - Objective Vital Signs: Vital Signs Temperature 99.2 F 04/02/18 06:00 Pulse Rate 85 04/02/18 10:48 Respiratory Rate 22 H 04/02/18 06:00 Blood Pressure 137/69 04/02/18 06:00 O2 Sat by Pulse Oximetry (%) 93 L 04/01/18 21:00 Eyes: Yes: WNL, Conjunctiva Clear, EOM Intact HENT: Yes: WNL, Atraumatic, Normocephalic Neck: Yes: WNL, Supple, Trachea Midline Cardiovascular: Yes: WNL, Regular Rate and Rhythm Respiratory: Yes: WNL, Regular, CTA Bilaterally Gastrointestinal: Yes: WNL, Normal Bowel Sounds Genitourinary: Yes: WNL Musculoskeletal: Yes: WNL Extremities: Yes: WNL Edema: No Integumentary: Yes: WNL Neurological: Yes: WNL, Alert, Oriented ...Motor Strength: WNL Psychiatric: Yes: WNL Labs: CBC, BMP 04/01/18 06:30 INR, PTT INR 1.18 (0.83-1.09) H 03/28/18 07:10 Assessment/Plan Problems (1) Anemia Code(s): D64.9 - ANEMIA, UNSPECIFIED Qualifiers: Anemia type: unspecified type Qualified Code(s): D64.9 - Anemia, unspecified (2) Atrial fibrillation Assessment/Plan: On metoprolol bid at home. Not on anticoagulant (?due to prior GI bleed). Normal LVEF; mild-moderate LA size;mild MR and TR by 2016 ECHO. Code(s): I48.91 - UNSPECIFIED ATRIAL FIBRILLATION Qualifiers: Atrial fibrillation type: unspecified Qualified Code(s): I48.91 - Unspecified atrial fibrillation (3) COPD (chronic obstructive pulmonary disease) Code(s): J44.9 - CHRONIC OBSTRUCTIVE PULMONARY DISEASE, UNSPECIFIED (4) Melanoma Assessment/Plan: post-craniotomy. MRI: likely abscess, subdural empyema. s/p operation of cranial wound by Dr. Simmons. Code(s): C43.9 - MALIGNANT MELANOMA OF SKIN, UNSPECIFIED (5) Sepsis Code(s): A41.9 - SEPSIS, UNSPECIFIED ORGANISM (6) Weakness Code(s): R53.1 - WEAKNESS (7) Hypomagnesemia Assessment/Plan: mg and PO4 replaced; Mg norrmal level today (2.1); PO4 still low at 2.1. Code(s): E83.42 - HYPOMAGNESEMIA
[2018-04-02] MEDS: ACETAMINOPHEN 325 MG TABLET (FP) PO PRN ×2 (14:09→21:49)
--- NOTE | 2018-04-02 14:51 | PATH ---
Surgical Pathology Report Patient Name: BRANDON RECIO Med. Rec. #: [id number] /Age/Gender: 1955 (Age: 62) / M Account: [id number] Location: [facility] MED/SURG Taken: 03/28/2018 Received: 03/28/2018 Reported: 04/02/2018 Physicians: Elias Simmons M.D. PHYSICIAN EMERGENCY DEPT Specimen(s) Received A: RIGHT FRONTAL LOBE TISSUE B: RIGHT FRONTAL LOBE TISSUE C: BONE FLAP WITH PLATES AND SCREWS D: OLD OMMAYA RESERVOIR Clinical History Right frontal lobe tissue Intraoperative Consult Diagnosis Right frontal lobe tissue, frozen section: Predominately necrotic material and scattered inflammatory cells. No definitive tumor identified. Sd Perez M.D., 03/28/2018 Final Diagnosis A. FRONTAL LOBE TISSUE, RIGHT, BIOPSY (FS): PREDOMINANTLY NECROTIC TISSUE WITH ACUTE AND CHRONIC INFLAMMATION AND FOCAL DYSTROPHIC CALCIFICATIONS. SPECIAL STAINS FOR FUNGUS (PAS) AND ACID FAST BACILLI ARE NEGATIVE. SEE COMMENT. B. FRONTAL LOBE TISSUE, RIGHT, BIOPSY BRAIN PARENCHYMA WITH AREAS OF NECROSIS, ACUTE AND CHRONIC INFLAMMATION, HISTIOCYTIC PROLIFERATION, HEMOSIDERIN DEPOSITION, FOCAL DYSTROPHIC CALCIFICATIONS, AND REACTIVE CHANGES. SEE COMMENT. C. BONE FLAP AND SCREWS, EXCISION: PORTION OF BONE WITH REACTIVE CHANGES. SURGICAL HARDWARE. MACROSCOPIC DIAGNOSIS. D. OMMAYA RESERVOIR, REMOVAL: OMMAYA RESERVOIR. MACROSCOPIC DIAGNOSIS. Comment: No definitive/viable tumor is identified. Immunohistochemical stains performed at [facility] and interpreted at [facility] ([id number]) show that Melan-A is negative. Immuno stain for Sox-10 is non-contributory. History of melanoma is noted. Suggest clinical and microbiology studies correlation. Electronically Signed Arleen Aguiar M.D. Gross Description A. Received fresh labeled "right frontal lobe tissue," are 3 rivers fragments of necrotic soft tissue ranging from 0.5-0.9 cm in greatest dimension. A touch prep is performed and the specimen is entirely submitted for frozen section. The frozen section residue is entirely submitted in one cassette. B. Received in formalin labeled "right frontal lobe tissue," is a 3.0 x 2.2 x 0.3 cm aggregate of rivers soft tissue fragments. The specimen is entirely submitted in 2 cassettes. C. Received in formalin labeled "bone flap plates and screws," is a 6.5 x 4.6 x 0.6 cm rivers portion of bone, consistent with a portion of skull. The specimen displays 5 sr metallic portions of hardware with 8 screws. A hospital sales representative section is submitted in one cassette, following decalcification. D. Received fresh labeled "Ommaya reservoir," is a 2.0 cm in greatest dimension clear, rubbery device. No soft tissue is present. No sections are submitted, gross only. 03/28/2018 [facility]03/28/2018
--- NOTE | 2018-04-02 15:21 | PN ---
Physical Exam: SUBJECTIVE: Patient seen and examined at bedside this morning. He is POD #5 s/p craniotomy, abscess debridement, and Ommaya catheter removal. Still complains of tremor in the left hand when he tries to hold objects. Patient denies headache, double vision, dizziness, fevers, chills, shortness of breath, chest pain, palpitations, abdominal pain, nausea vomiting, diarrhea, constipation, melena hematochezia, dysuria, hematuria. OBJECTIVE: Vital Signs Period Temp Pulse Resp BP Sys/Betancourt Pulse Ox Last 24 Hr 98.4 F-101.2 F 69-85 22-22 120-147/65-74 93 GENERAL: The patient is awake, alert, and fully oriented, in no acute distress. HEAD: S/P craniotomy. scar visualized, clean cutures. No active draining. EYES: PERRLA, extraocular movements intact b/l. No nystagmus b/l. Sclera anicteric, conjunctiva clear. ENT: Oropharynx clear without exudates or lesions. Moist mucous membranes. NECK: Trachea midline, Supple without lymphadenopathy. LUNGS: Good inspiratory effort. Breath sounds equal, clear to auscultation bilaterally. No wheezes. No accessory muscle use. HEART: Irregular rate and rhythm. S1, S2 auscultated without murmur appreciated. ABDOMEN: Soft, nontender, nondistended. Normoactive bowel sounds x4 quadrants. No guarding, no rebound. No hepatosplenomegaly appreciated.. EXTREMITIES: 2+ radial and dorsalis pedis pulses. Warm. No lower extremity edema b/l. NEUROLOGICAL: Cranial nerves II through XII grossly intact. Normal speech. Strength 5/5 b/l upper extremities in flexion, extension, abduciton, adduction. Tremor in left arm noted with strength testing against resistance. Biceps reflex 2+ b/l. Strength 5/5 right lower extremity in hip flexion, extension and knee flexion, extension. Patellar and Achilles tendon reflex 2+ b/l. 5/5 in left lower extremity hip flexion, extension and 4/5 knee flexion, extension. 1+ left patellar reflex, 2+ left Achilles tendon. Plantarflexion and dorsiflexion 5 /5 b/l. Sensation intact b/l upper and lower extremities. PSYCH: Mood and affect appropriate upon my encounter today. Laboratory Results - last 24 hr 03/30/18 03/30/18 04/01/18 18:19 22:02 16:55 Potassium POC Glucometer > 600 469 286 Phosphorus Magnesium 04/01/18 04/02/18 04/02/18 22:07 06:15 06:30 Potassium 3.0 L POC Glucometer 336 209 Phosphorus 2.7 Magnesium 1.9 04/02/18 04/02/18 11:50 12:21 Potassium 3.1 L POC Glucometer 141 Phosphorus Magnesium Active Medications Generic Name Dose Route Start Last Admin Trade Name Freq PRN Reason Stop Dose Admin Acetaminophen 650 mg 03/31/18 16:28 04/02/18 14:09 Tylenol - PO 650 mg Q6H PRN Administration TEMP > 100 Ascorbic Acid 250 mg 03/31/18 10:00 04/02/18 10:46 Vitamin C - PO 250 mg DAILY [facility] Administration Budesonide/Formoterol Fumarate 1 puff 03/30/18 22:00 04/02/18 10:47 Symbicort 160/4.5mcg - IH 1 puff BID [facility] Administration Digoxin 0.25 mg 03/31/18 10:00 04/02/18 10:48 Lanoxin - PO 0.25 mg DAILY [facility] Administration Docusate Sodium 100 mg 03/30/18 22:00 04/02/18 14:09 Colace - PO 100 mg TID [facility] Administration Ferrous Sulfate 325 mg 03/30/18 22:00 04/02/18 10:47 Feosol - PO 325 mg BID [facility] Administration Gabapentin 600 mg 03/30/18 22:00 04/02/18 14:09 Neurontin - PO 600 mg TID [facility] Administration Heparin Sodium (Porcine) 5,000 unit 03/30/18 22:00 04/02/18 14:10 Heparin - SQ 5,000 unit TID [facility] Administration Hydromorphone HCl 0.5 mg 03/30/18 16:53 Dilaudid Vial - IVPUSH Q4H PRN PAIN LEVEL 6-10 Ampicillin Sodium 2 gm/ Sodium 100 mls @ 200 mls/hr 03/30/18 18:00 04/02/18 14:09 Chloride IVPB 200 mls/hr Q4H-IV [facility] Administration Metronidazole 500 mg in 100 mls @ 100 mls/hr 03/30/18 18:00 04/02/18 10:47 Flagyl 500mg Premixed Ivpb - IVPB 100 mls/hr Q8H-IV [facility] Administration Vancomycin HCl 1,000 mg/ 250 mls @ 200 mls/hr 04/01/18 17:30 04/01/18 16:29 Sodium Chloride IVPB 200 mls/hr Q24H [facility] Administration Protocol Insulin Aspart 1 vial 03/30/18 14:09 04/02/18 14:08 Novolog Vial Sliding Scale - SQ Not Given ACHS [facility] Protocol Insulin Detemir 15 units 04/01/18 07:00 04/02/18 06:48 Levemir Vial SQ 15 unit 0700 [facility] Administration Lactobacillus Acidophilus 1 tab 03/31/18 10:00 04/02/18 10:46 Bacid - PO 1 tab DAILY [facility] Administration Metoprolol Succinate 50 mg 03/30/18 22:00 04/01/18 22:18 Toprol Xl - PO 50 mg HS [facility] Administration Metoprolol Succinate 100 mg 03/31/18 07:00 04/02/18 06:10 Toprol Xl - PO 100 mg DAILY@0700 [facility] Administration Non-Formulary Medication 15 gm 03/30/18 16:53 Levalbuterol Tartrate [Xopenex Hfa] IH Q4H PRN SHORTNESS OF BREATH Ondansetron HCl 4 mg 03/30/18 16:53 Zofran Injection IVPUSH Q6H PRN NAUSEA Pantoprazole Sodium 40 mg 04/01/18 10:00 04/02/18 10:47 Protonix - PO 40 mg DAILY [facility] Administration Prednisone 5 mg 04/02/18 10:00 04/02/18 10:48 Deltasone - PO 5 mg DAILY [facility] Administration Prednisone 2.5 mg 04/01/18 22:00 04/01/18 22:17 Deltasone - PO 2.5 mg HS [facility] Administration IMAGING: CT head: Nonspecific right frontal rim enhancing lesion 3.4 x 3.4 x 3.3 cm concerning for abscess vs. neoplastic disease. MRI head: Vasogenic edema of right frontal lobe. Findings suggestive of abscess with subdural empyema CT head (post-operative): Vasogenic edema right frontal lobe. No herniation, hydrocephalus. No acute ischemic changes. ASSESSMENT/PLAN: Patient is a 62 year old male with history of stage four melanoma (s/p recent revision of craniotomy in January d/t leaking cyst), Afib (not on anticoagulation) , HTN, DM, COPD, presents with complaint of yellow, sticky discharge from Ommaya catheter for approx. 10 days and new left lower extremity weakness. Brain abscess -Patient is POD #5 s/p craniotomy. -ID consult (Dr. Wilhelm) appreciated: Empiric coverage with Ceftriaxone 2gm Q24H IV, Flagy 500mg Q8H IV. Ampicillin 2gm IV Q4H Reinstate Vancomycin 1gram Q24H. -Wound cultures noted. -CSF cultures negative for growth -Blood cultures- negative for growth -Tylenol 650mg PO Q6H PRN for pain 1-5 -Dilaudid 0.5mg IV Q4H for pain 6-10 Fevers -Unclear etiology. May be due to atelectasis, vs. C.diff vs. DVT. -Tmax today 101.2F -Chest xray shows bibasilar subsegmental atelectasis, and questionable small left pleural effusion. -Encourage continuous use of incentive spirometer -B/L lower extremity duplex US negative for DVT -Stool for C.diff negative. -Will consider blood cultures if fever progresses. Hypokalemia, hypophosphatemia -Potassium 3.0, Mg 1.8, Phos 2.7 -Replete with 40meq K-dur PO X2 -Will F/U Potassium after repletion Adrenal Insufficiency -Endocrinology (Dr. Martinez) consult appreciated. -Reinstate home dose Prednisone 5mg AM, 2.5mg HS. Afib -Not on anticoagulation d/t history of GI bleed ?diverticulitis in 2016 -Continue Metoprolol 100mg PO AM, 50mg PO HS -Continue Digoxin 0.25mg PO daily HTN -Continue Metoprolol 100mg PO AM, 50mg PO HS DM -Begin Levemir 15 units subq in the mornings -ISS (scale and dosage updated) -BGM ACHS FEN -Patient tolerating PO fluids. Encourage judicious hydration. -Follow CMP -Diabetic diet Prophylaxis -Heparin 5000units subq TID Disposition -Continue care in medical-surgical floor Visit type - Emergency Visit Emergency Visit: Yes ED Registration Date: 03/27/18 Care time: The patient presented to the Emergency Department on the above date and was hospitalized for further evaluation of their emergent condition. - New Patient This patient is new to me today: No - Critical Care Critical Care patient: No - Discharge Referral Referred to [facility] Med P.C.: No
--- NOTE | 2018-04-02 16:14 | PN ---
Teaching Attending Note Name of Resident: Dileep Valenzuela ATTENDING PHYSICIAN STATEMENT I saw and evaluated the patient. I reviewed the resident's note and discussed the case with the resident. I agree with the resident's findings and plan as documented. SUBJECTIVE: No fever or chills . noapin, no weakness. L arm twitching is beter OBJECTIVE: NAD, Awake HEENT: round equal pupils, surgical wound on scalp with no drainage or erythema CC: RRR. no MRG Lungs: CTAB Ext: LLE edema, no erythema or tenderness . twitching of L hand Neuro : round equal reactive pupils, no facial droop. tongue and uvula at mid line. strength 5/5 in R upper and lower extremities, proximally and distally. LUE strength 5/5 at shoulder , elbow and wrist . LLE : 3/5 hip flexion. 3/5 knee flexion and extension. 5/5 plantar flexion and extension ASSESSMENT AND PLAN: 62 year-old man with a PMH of metastatic melanoma , HTN, afib, NIDDM, adrenal insufficiency, COPD, HLP, nephrectomy, metastatic melanoma s/p cracneotomy 5 years ago, s/p re-do craniotomy 01/24 fro fluid collection, and Ommaya cath placement, T7-8 disc herniation s/p spinal sx in 02/24 , who presented with fever and purulent drainage from scalp incision site. He was found to have R frontal collection 1- R frontal abscess: s/p craniotomy, debridement, and drainage. - cont Abx , vanco , flagyl and ampicillin - vanco trough this afternoon monitor neuro exam 2- H/o A fib: - cont home dig and toprol - not on AC 3- H/o adrenal insufficiency: cont home dose of 5 in am and 2.5 in HS 5- DM : decrease levemir dose as steroids are off . might be able to dc later cont SSI . 6- h/o metastatic melanoma: out pt follow up Heparin sq PT
[2018-04-02] MEDS ORDERED: INSULIN (NOVOLOG) ASPART 100 UNITS/ML 10ML VIAL ONE (17:47)
[2018-04-02] MEDS: VANCOMYCIN 1,000 MG in SODIUM CHLORIDE 250 ML IVPB SCH ×2 (17:48→19:24)
[2018-04-02 22:15] LABS: ANION GAP 10 MMOL/L (8-16); BLOOD UREA NITROGEN 14 mg/dL (7-18); CALCIUM 7.4 mg/dL (8.5-10.1); CHLORIDE 102 mmol/L (98-107); CO2 29 mmol/L (21-32); CREATININE 0.9 mg/dL (0.55-1.3); GLUCOSE,RANDOM 228 mg/dL (74-106); POTASSIUM 3.6 mmol/L (3.5-5.1); SODIUM 141 mmol/L (136-145)
[2018-04-03] MEDS: AMPICILLIN - 2 GM in SODIUM CHLORIDE 100 ML IVPB SCH ×6 (02:04→21:54)
[2018-04-03] MEDS: INSULIN SLIDING SCALE (NOVOLOG) 1 VIAL SQ SCH ×4 (06:19→21:39)
[2018-04-03] MEDS: HEPARIN NA (PORCINE) 5,000 UNITS/ML 1ML VIAL SQ SCH ×3 (06:19→21:35)
[2018-04-03] MEDS: INSULIN (LEVEMIR) 100 UNITS/ML UNITS SQ SCH (06:20)
[2018-04-03] MEDS: GABAPENTIN 300 MG CAPSULE (FP) PO SCH ×3 (06:22→21:33)
[2018-04-03] MEDS: DOCUSATE SODIUM 100 MG CAPSULE (FP) PO SCH ×3 (06:23→21:33)
[2018-04-03 07:48] LABS: HEMATOCRIT 29.3 % (35.4-49); HEMOGLOBIN 10.1 GM/dL (11.7-16.9); MCH 33.1 pg (25.7-33.7); MCHC 34.3 g/dl (32.0-35.9); MEAN CELL VOLUME 96.4 fl (80-96); MEAN PLT VOLUME 7.7 fl (7.5-11.1); PLATELET COUNT 196 K/MM3 (134-434); RBC 3.04 M/mm3 (4.00-5.60); RDW 17.2 % (11.9-15.9); WHITE BLOOD COUNT 7.4 K/mm3 (4.0-10.0)
--- NOTE | 2018-04-03 07:53 | PN ---
Progress Note (short form) - Note Progress Note: NEUROSURGERY POD #6 On 8W No H/A, No N/V, no sz No diplopia tolerating diet well PE: Tmax 100, VSS Incision C/D/I General- unremarkable, in good spirit CN- nonfocal; motor- L LE 4+-5/5 CXR- bibasilar atelectasis LE doppler negative for DVT Scalp drainage- staph epi, E Coli resection cavity fluid- proprionibacterium Head CT- postop changes R frontal lobe, edema Brain abscess: s/p craniectomy, debridement, Ommaya reservoir removal Stable neurologically Care d/w ID and medical team Cont iv abx- on amp/vanco, and flagyl per ID OOB/mobilize Incentive spirometry DVT prophylaxis PT
[2018-04-03] MEDS ORDERED: PT OWN MED DRAWER 7, Y5N ONE ×4 (08:55→19:04)
[2018-04-03] MEDS: ACETAMINOPHEN 325 MG TABLET (FP) PO PRN (08:56)
[2018-04-03 09:01] LABS: ALBUMIN 2.2 g/dl (3.4-5.0); ALK PHOS 72 U/L (45-117); ANION GAP 8 MMOL/L (8-16); BILIRUBIN,TOTAL 0.6 mg/dL (0.2-1); BLOOD UREA NITROGEN 13 mg/dL (7-18); CALCIUM 7.7 mg/dL (8.5-10.1); CHLORIDE 101 mmol/L (98-107); CO2 29 mmol/L (21-32); CREATININE 0.7 mg/dL (0.55-1.3); GLUCOSE,RANDOM 161 mg/dL (74-106); MAGNESIUM 1.9 mg/dL (1.8-2.4); PHOSPHOROUS 2.2 mg/dL (2.5-4.9); POTASSIUM 3.4 mmol/L (3.5-5.1); SGOT/AST 21 U/L (15-37); SGPT/ALT 34 U/L (13-61); SODIUM 138 mmol/L (136-145); TOT PROT 5.1 g/dl (6.4-8.2)
[2018-04-03] MEDS: PANTOPRAZOLE 40 MG TABLET (FP) PO SCH (10:25)
[2018-04-03] MEDS: FERROUS SO4 325 MG TABLET (FP) PO SCH ×2 (10:25→21:33)
[2018-04-03] MEDS: LACTOBACILLUS ACIDOPHILUS 1 TABLET PO SCH (10:25)
[2018-04-03] MEDS: predniSONE 5 MG TABLET (UD) PO SCH ×2 (10:25→21:45)
[2018-04-03] MEDS: ASCORBIC ACID 500 MG TABLET (FP) PO SCH (10:25)
[2018-04-03] MEDS: BUDESONIDE/FORMETEROL FUMARATE 160/4.5 mcg INHALER IH SCH ×2 (10:26→21:43)
[2018-04-03] MEDS: DIGOXIN 0.25 MG TABLET (FP) PO SCH (10:27)
[2018-04-03] MEDS ORDERED: INSULIN (NOVOLOG) ASPART 100 UNITS/ML 10ML VIAL ONE (12:45)
--- NOTE | 2018-04-03 12:47 | PN ---
Progress Note, Physician History of Present Illness: POD # 6 R frontal craniotomy, debridement/ abscess drainage, removal of Ommaya catheter Awake, alert, oriented No c/o pain Low grade temp Operative c/s P. acnes Wound c/s (swab of scalp) SCN/E coli WBC WNL - Current Medication List Current Medications: Active Medications Acetaminophen (Tylenol -) 650 mg PO Q6H PRN PRN Reason: TEMP > 100 Last Admin: 04/03/18 08:56 Dose: 650 mg Ascorbic Acid (Vitamin C -) 250 mg PO DAILY [facility] Last Admin: 04/03/18 10:25 Dose: 250 mg Budesonide/Formoterol Fumarate (Symbicort 160/4.5mcg -) 1 puff IH BID [facility] Last Admin: 04/03/18 10:26 Dose: 1 puff Digoxin (Lanoxin -) 0.25 mg PO DAILY [facility] Last Admin: 04/03/18 10:27 Dose: 0.25 mg Docusate Sodium (Colace -) 100 mg PO TID [facility] Last Admin: 04/03/18 06:23 Dose: 100 mg Ferrous Sulfate (Feosol -) 325 mg PO BID [facility] Last Admin: 04/03/18 10:25 Dose: 325 mg Gabapentin (Neurontin -) 600 mg PO TID [facility] Last Admin: 04/03/18 06:22 Dose: 600 mg Heparin Sodium (Porcine) (Heparin -) 5,000 unit SQ TID [facility] Last Admin: 04/03/18 06:19 Dose: 5,000 unit Ampicillin Sodium 2 gm/ Sodium (Chloride) 100 mls @ 200 mls/hr IVPB Q4H-IV [facility] Last Admin: 04/03/18 08:59 Dose: 200 mls/hr Metronidazole (Flagyl 500mg Premixed Ivpb -) 500 mg in 100 mls @ 100 mls/hr IVPB Q8H-IV [facility] Last Admin: 04/03/18 10:25 Dose: 100 mls/hr Vancomycin HCl 1,000 mg/ (Sodium Chloride) 250 mls @ 200 mls/hr IVPB Q24H [facility]; Protocol Last Admin: 04/02/18 19:24 Dose: 200 mls/hr Insulin Aspart (Novolog Vial Sliding Scale -) 1 vial SQ ACHS [facility]; Protocol Last Admin: 04/03/18 06:19 Dose: 3 units Insulin Detemir (Levemir Vial) 7 units SQ 0700 [facility] Last Admin: 04/03/18 06:20 Dose: 7 units Lactobacillus Acidophilus (Bacid -) 1 tab PO DAILY [facility] Last Admin: 04/03/18 10:25 Dose: 1 tab Metoprolol Succinate (Toprol Xl -) 50 mg PO HS [facility] Last Admin: 04/02/18 21:37 Dose: 50 mg Metoprolol Succinate (Toprol Xl -) 100 mg PO DAILY@0700 [facility] Last Admin: 04/03/18 06:23 Dose: 100 mg Non-Formulary Medication (Levalbuterol Tartrate [Xopenex Hfa]) 15 gm IH Q4H PRN PRN Reason: SHORTNESS OF BREATH Ondansetron HCl (Zofran Injection) 4 mg IVPUSH Q6H PRN PRN Reason: NAUSEA Pantoprazole Sodium (Protonix -) 40 mg PO DAILY [facility] Last Admin: 04/03/18 10:25 Dose: 40 mg Prednisone (Deltasone -) 5 mg PO DAILY [facility] Last Admin: 04/03/18 10:25 Dose: 5 mg Prednisone (Deltasone -) 2.5 mg PO [facility] Last Admin: 04/02/18 21:35 Dose: 2.5 mg - Objective Vital Signs: Vital Signs Temperature 100 F H 04/03/18 06:00 Pulse Rate 88 04/03/18 10:27 Respiratory Rate 20 04/03/18 06:00 Blood Pressure 133/69 04/03/18 06:00 O2 Sat by Pulse Oximetry (%) 94 L 04/02/18 21:00 Constitutional: Yes: No Distress Eyes: Yes: Conjunctiva Clear HENT: Yes: Other (surgical wound healing well No erythema/ drainage) Cardiovascular: Yes: Regular Rate and Rhythm, S1, S2 Respiratory: Yes: CTA Bilaterally Gastrointestinal: Yes: Normal Bowel Sounds, Soft. No: Tenderness Edema: No Labs: CBC, BMP 04/03/18 07:15 04/03/18 07:15 INR, PTT INR 1.18 (0.83-1.09) H 03/28/18 07:10 Assessment/Plan POD #6 R frontal craniotomy/ debridement/ abscess drainage/ removal of Ommaya Stage IV melanoma Solitary kidney Continue flagyl/ ampicillin / vancomycin
--- NOTE | 2018-04-03 13:31 | PN ---
Progress Note, Physician Chief Complaint: PT A&Ox3; no chest pain or izziness; frustrated that he is not been allowed to walk more (but has trouble moving his legs). History of Present Illness: 62 yr old white man with PMHx melanoma, s/p craniotomy 12/2017, thoracic vetebral surgery 01/2018, PAF, HTN, DM, now admitted with fever and weakness. Pt had been undergoing physical therapy at home, but felt too weak to continue. - Current Medication List Current Medications: Active Medications Acetaminophen (Tylenol -) 650 mg PO Q6H PRN PRN Reason: TEMP > 100 Last Admin: 04/03/18 08:56 Dose: 650 mg Ascorbic Acid (Vitamin C -) 250 mg PO DAILY [facility] Last Admin: 04/03/18 10:25 Dose: 250 mg Budesonide/Formoterol Fumarate (Symbicort 160/4.5mcg -) 1 puff IH BID [facility] Last Admin: 04/03/18 10:26 Dose: 1 puff Digoxin (Lanoxin -) 0.25 mg PO DAILY [facility] Last Admin: 04/03/18 10:27 Dose: 0.25 mg Docusate Sodium (Colace -) 100 mg PO TID [facility] Last Admin: 04/03/18 06:23 Dose: 100 mg Ferrous Sulfate (Feosol -) 325 mg PO BID [facility] Last Admin: 04/03/18 10:25 Dose: 325 mg Gabapentin (Neurontin -) 600 mg PO TID [facility] Last Admin: 04/03/18 06:22 Dose: 600 mg Heparin Sodium (Porcine) (Heparin -) 5,000 unit SQ TID [facility] Last Admin: 04/03/18 06:19 Dose: 5,000 unit Ampicillin Sodium 2 gm/ Sodium (Chloride) 100 mls @ 200 mls/hr IVPB Q4H-IV [facility] Last Admin: 04/03/18 08:59 Dose: 200 mls/hr Metronidazole (Flagyl 500mg Premixed Ivpb -) 500 mg in 100 mls @ 100 mls/hr IVPB Q8H-IV [facility] Last Admin: 04/03/18 10:25 Dose: 100 mls/hr Vancomycin HCl 1,000 mg/ (Sodium Chloride) 250 mls @ 200 mls/hr IVPB Q24H [facility]; Protocol Last Admin: 04/02/18 19:24 Dose: 200 mls/hr Insulin Aspart (Novolog Vial Sliding Scale -) 1 vial SQ ACHS [facility]; Protocol Last Admin: 04/03/18 12:51 Dose: 3 units Insulin Detemir (Levemir Vial) 7 units SQ 0700 [facility] Last Admin: 04/03/18 06:20 Dose: 7 units Lactobacillus Acidophilus (Bacid -) 1 tab PO DAILY [facility] Last Admin: 04/03/18 10:25 Dose: 1 tab Metoprolol Succinate (Toprol Xl -) 50 mg PO [facility] Last Admin: 04/02/18 21:37 Dose: 50 mg Metoprolol Succinate (Toprol Xl -) 100 mg PO DAILY@0700 [facility] Last Admin: 04/03/18 06:23 Dose: 100 mg Non-Formulary Medication (Levalbuterol Tartrate [Xopenex Hfa]) 15 gm IH Q4H PRN PRN Reason: SHORTNESS OF BREATH Ondansetron HCl (Zofran Injection) 4 mg IVPUSH Q6H PRN PRN Reason: NAUSEA Pantoprazole Sodium (Protonix -) 40 mg PO DAILY [facility] Last Admin: 04/03/18 10:25 Dose: 40 mg Prednisone (Deltasone -) 5 mg PO DAILY [facility] Last Admin: 04/03/18 10:25 Dose: 5 mg Prednisone (Deltasone -) 2.5 mg PO [facility] Last Admin: 04/02/18 21:35 Dose: 2.5 mg - Objective Vital Signs: Vital Signs Temperature 100 F H 04/03/18 06:00 Pulse Rate 88 04/03/18 10:27 Respiratory Rate 20 04/03/18 06:00 Blood Pressure 133/69 04/03/18 06:00 O2 Sat by Pulse Oximetry (%) 94 L 04/02/18 21:00 Labs: CBC, BMP 04/03/18 07:15 04/03/18 07:15 INR, PTT INR 1.18 (0.83-1.09) H 03/28/18 07:10 Problem List - Problems (1) Sepsis Assessment/Plan: low-grade fever persists; f/u with ID. Code(s): A41.9 - SEPSIS, UNSPECIFIED ORGANISM Qualifiers: Sepsis type: puerperal sepsis Qualified Code(s): O85 - Puerperal sepsis (2) Anemia Code(s): D64.9 - ANEMIA, UNSPECIFIED Qualifiers: Anemia type: unspecified type Qualified Code(s): D64.9 - Anemia, unspecified (3) Atrial fibrillation Assessment/Plan: Now on metoprolol ER 50 mg daily. On digoxin; f/u level (keep 0.5-1.0); review need for continuation of this medication (on metoprolol for HR control; LVEF WNL). Not on anticoagulant (?due to prior GI bleed); review feasibility of starting warfarin or NOAC. Normal LVEF; mild-moderate LA size;mild MR and TR by 2016 ECHO. Code(s): I48.91 - UNSPECIFIED ATRIAL FIBRILLATION Qualifiers: Atrial fibrillation type: unspecified Qualified Code(s): I48.91 - Unspecified atrial fibrillation (4) COPD (chronic obstructive pulmonary disease) Code(s): J44.9 - CHRONIC OBSTRUCTIVE PULMONARY DISEASE, UNSPECIFIED (5) Melanoma Assessment/Plan: post-craniotomy. MRI: likely abscess, subdural empyema. s/p operation of cranial wound by Dr. Simmons. Code(s): C43.9 - MALIGNANT MELANOMA OF SKIN, UNSPECIFIED (6) Weakness Code(s): R53.1 - WEAKNESS (7) Hypokalemia Assessment/Plan: replete, and keep K 4-4.5. F/u digoxin level; review need for continuation of the medication (on metoprolol for HR control; LVEF is WNL on ECHO). Code(s): E87.6 - HYPOKALEMIA
[2018-04-03] MEDS ORDERED: POTASSIUM CHLORIDE TABS 20 MEQ TABLET.ER (FP) PO ONE (13:44)
[2018-04-03] MEDS ORDERED: NAPH,MB-DB/K PH,MBDB POWDER PACKET PO ONE (13:48)
--- NOTE | 2018-04-03 17:45 | PN ---
Teaching Attending Note Name of Resident: Dileep Valenzuela ATTENDING PHYSICIAN STATEMENT I saw and evaluated the patient. I reviewed the resident's note and discussed the case with the resident. I agree with the resident's findings and plan as documented. SUBJECTIVE: No fever or chills. feels better OBJECTIVE: NAD, Awake HEENT: round equal pupils, surgical wound on scalp with no drainage or erythema CC: RRR. no MRG Lungs: CTAB Ext: LLE edema, no erythema or tenderness. twitching of L hand is better Neuro : round equal reactive pupils, no facial droop. tongue and uvula at mid line. strength 5/5 in R upper and lower extremities, proximally and distally. LUE strength 5/5 at shoulder, elbow and wrist . LLE : 3/5 hip flexion. 3/5 knee flexion and extension. 5/5 plantar flexion and extension ASSESSMENT AND PLAN: 62 year-old man with a PMH of metastatic melanoma , HTN, afib, NIDDM, adrenal insufficiency, COPD, HLP, nephrectomy, metastatic melanoma s/p cracneotomy 5 years ago, s/p re-do craniotomy 01/24 fro fluid collection, and Ommaya cath placement, T7-8 disc herniation s/p spinal sx in 02/24 , who presented with fever and purulent drainage from scalp incision site. He was found to have R frontal collection 1- R frontal abscess: s/p craniotomy, debridement, and drainage. - cont Abx , vanco , flagyl and ampicillin - follow vanco trough this afternoon goal 15-20 2- H/o A fib: - cont home dig and toprol - dig level noted 3- H/o adrenal insufficiency: cont home dose of 5 in am and 2.5 in HS 5- DM : cont levemir at 7, hopefully can stop soon . cont SSI . 6- h/o metastatic melanoma: out pt follow up Heparin sq PT
[2018-04-03 17:59] LABS: ANION GAP 9 MMOL/L (8-16); BLOOD UREA NITROGEN 14 mg/dL (7-18); CALCIUM 8.1 mg/dL (8.5-10.1); CHLORIDE 100 mmol/L (98-107); CO2 28 mmol/L (21-32); CREATININE 0.8 mg/dL (0.55-1.3); GLUCOSE,RANDOM 295 mg/dL (74-106); POTASSIUM 4.1 mmol/L (3.5-5.1); SODIUM 137 mmol/L (136-145)
[2018-04-03] MEDS: VANCOMYCIN 1,000 MG in SODIUM CHLORIDE 250 ML IVPB SCH ×2 (18:16→19:08)
[2018-04-03] MEDS ORDERED: SODIUM PHOSPHATE - 15 MM in SODIUM CHLORIDE 250 ML IVPB ONE (18:18)
--- NOTE | 2018-04-03 18:25 | PN ---
Physical Exam: SUBJECTIVE: Patient seen and examined at bedside this morning. He is POD #6 s/p craniotomy, abscess debridement, and Ommaya catheter removal. States tremor in the left hand is improving. Tmax 100F today morning. Patient denies headache, double vision, dizziness, chills, shortness of breath, chest pain, palpitations , abdominal pain, nausea vomiting, diarrhea, constipation, melena hematochezia, dysuria, hematuria. OBJECTIVE: Vital Signs Period Temp Pulse Resp BP Sys/Betancourt Pulse Ox Last 24 Hr 98.3 F-100 F 72-97 18-20 128-143/66-72 94-94 GENERAL: The patient is awake, alert, and fully oriented, in no acute distress. HEAD: S/P craniotomy. scar visualized, clean cutures. No active draining. EYES: PERRLA, extraocular movements intact b/l. No nystagmus b/l. Sclera anicteric, conjunctiva clear. ENT: Oropharynx clear without exudates or lesions. Moist mucous membranes. NECK: Trachea midline, Supple without lymphadenopathy. LUNGS: Good inspiratory effort. Breath sounds equal, clear to auscultation bilaterally. No wheezes. No accessory muscle use. HEART: Irregular rate and rhythm. S1, S2 auscultated without murmur appreciated. ABDOMEN: Soft, nontender, nondistended. Normoactive bowel sounds x4 quadrants. No guarding, no rebound. No hepatosplenomegaly appreciated.. EXTREMITIES: 2+ radial and dorsalis pedis pulses. Warm. No lower extremity edema b/l. NEUROLOGICAL: Cranial nerves II through XII grossly intact. Normal speech. Strength 5/5 b/l upper extremities in flexion, extension, abduciton, adduction. Tremor in left arm noted with strength testing against resistance. Biceps reflex 2+ b/l. Strength 5/5 right lower extremity in hip flexion, extension and knee flexion, extension. Patellar and Achilles tendon reflex 2+ b/l. 5/5 in left lower extremity hip flexion, extension and 4/5 knee flexion, extension. 1+ left patellar reflex, 2+ left Achilles tendon. Plantarflexion and dorsiflexion 5 /5 b/l. Sensation intact b/l upper and lower extremities. PSYCH: Mood and affect appropriate upon my encounter today. Laboratory Results - last 24 hr 04/02/18 04/02/1818 17:00 20:00 21:31 WBC RBC Hgb Hct MCV MCH MCHC RDW Plt Count MPV Sodium 141 Potassium 3.6 Chloride 102 Carbon Dioxide 29 Anion Gap 10 BUN 14 Creatinine 0.9 Creat Clearance w eGFR > 60 POC Glucometer 256 Random Glucose 228 H Calcium 7.4 L Phosphorus Magnesium Total Bilirubin AST ALT Alkaline Phosphatase Total Protein Albumin Vancomycin Pre-Dose 5.5 L Digoxin 04/03/18 04/03/18 04/03/18 06:15 07:15 07:15 WBC 7.4 RBC 3.04 L Hgb 10.1 L Hct 29.3 L MCV 96.4 H MCH 33.1 MCHC 34.3 RDW 17.2 H Plt Count 196 D MPV 7.7 Sodium 138 Potassium 3.4 L Chloride 101 Carbon Dioxide 29 Anion Gap 8 BUN 13 Creatinine 0.7 Creat Clearance w eGFR > 60 POC Glucometer 178 Random Glucose 161 H Calcium 7.7 L Phosphorus 2.2 L Magnesium 1.9 Total Bilirubin 0.6 AST 21 ALT 34 Alkaline Phosphatase 72 Total Protein 5.1 L Albumin 2.2 L Vancomycin Pre-Dose Digoxin 1.10 04/03/18 04/03/18 04/03/18 12:35 16:35 16:35 WBC RBC Hgb Hct MCV MCH MCHC RDW Plt Count MPV Sodium 137 Potassium 4.1 Chloride 100 Carbon Dioxide 28 Anion Gap 9 BUN 14 Creatinine 0.8 Creat Clearance w eGFR > 60 POC Glucometer 179 Random Glucose 295 H Calcium 8.1 L Phosphorus 2.0 L Magnesium Total Bilirubin AST ALT Alkaline Phosphatase Total Protein Albumin Vancomycin Pre-Dose 4.7 L Digoxin 04/03/18 17:27 WBC RBC Hgb Hct MCV MCH MCHC RDW Plt Count MPV Sodium Potassium Chloride Carbon Dioxide Anion Gap BUN Creatinine Creat Clearance w eGFR POC Glucometer 292 Random Glucose Calcium Phosphorus Magnesium Total Bilirubin AST ALT Alkaline Phosphatase Total Protein Albumin Vancomycin Pre-Dose Digoxin Active Medications Generic Name Dose Route Start Last Admin Trade Name Freq PRN Reason Stop Dose Admin Acetaminophen 650 mg 03/31/18 16:28 04/03/18 08:56 Tylenol - PO 650 mg Q6H PRN Administration TEMP > 100 Ascorbic Acid 250 mg 03/31/18 10:00 04/03/18 10:25 Vitamin C - PO 250 mg DAILY [facility] Administration Budesonide/Formoterol Fumarate 1 puff 03/30/18 22:00 04/03/18 10:26 Symbicort 160/4.5mcg - IH 1 puff BID [facility] Administration Digoxin 0.25 mg 03/31/18 10:00 04/03/18 10:27 Lanoxin - PO 0.25 mg DAILY [facility] Administration Docusate Sodium 100 mg 03/30/18 22:00 04/03/18 14:16 Colace - PO 100 mg TID [facility] Administration Ferrous Sulfate 325 mg 03/30/18 22:00 04/03/18 10:25 Feosol - PO 325 mg BID [facility] Administration Gabapentin 600 mg 03/30/18 22:00 04/03/18 14:16 Neurontin - PO 600 mg TID [facility] Administration Heparin Sodium (Porcine) 5,000 unit 03/30/18 22:00 04/03/18 14:17 Heparin - SQ 5,000 unit TID [facility] Administration Ampicillin Sodium 2 gm/ Sodium 100 mls @ 200 mls/hr 03/30/18 18:00 04/03/18 17:26 Chloride IVPB 200 mls/hr Q4H-IV [facility] Administration Metronidazole 500 mg in 100 mls @ 100 mls/hr 03/30/18 18:00 04/03/18 10:25 Flagyl 500mg Premixed Ivpb - IVPB 100 mls/hr Q8H-IV [facility] Administration Vancomycin HCl 1,000 mg/ 250 mls @ 200 mls/hr 04/01/18 17:30 04/02/18 19:24 Sodium Chloride IVPB 200 mls/hr Q24H [facility] Administration Protocol Insulin Aspart 1 vial 03/30/18 14:09 04/03/18 17:29 Novolog Vial Sliding Scale - SQ 7 units ACHS [facility] Administration Protocol Insulin Detemir 7 units 04/02/18 17:52 04/03/18 06:20 Levemir Vial SQ 7 units 0700 [facility] Administration Lactobacillus Acidophilus 1 tab 03/31/18 10:00 04/03/18 10:25 Bacid - PO 1 tab DAILY [facility] Administration Metoprolol Succinate 50 mg 03/30/18 22:00 04/02/18 21:37 Toprol Xl - PO 50 mg HS [facility] Administration Metoprolol Succinate 100 mg 03/31/18 07:00 04/03/18 06:23 Toprol Xl - PO 100 mg DAILY@0700 [facility] Administration Non-Formulary Medication 15 gm 03/30/18 16:53 Levalbuterol Tartrate [Xopenex Hfa] IH Q4H PRN SHORTNESS OF BREATH Ondansetron HCl 4 mg 03/30/18 16:53 Zofran Injection IVPUSH Q6H PRN NAUSEA Pantoprazole Sodium 40 mg 04/01/18 10:00 04/03/18 10:25 Protonix - PO 40 mg DAILY [facility] Administration Prednisone 5 mg 04/02/18 10:00 04/03/18 10:25 Deltasone - PO 5 mg DAILY [facility] Administration Prednisone 2.5 mg 04/01/18 22:00 04/02/18 21:35 Deltasone - PO 2.5 mg HS [facility] Administration IMAGING: CT head: Nonspecific right frontal rim enhancing lesion 3.4 x 3.4 x 3.3 cm concerning for abscess vs. neoplastic disease. MRI head: Vasogenic edema of right frontal lobe. Findings suggestive of abscess with subdural empyema CT head (post-operative): Vasogenic edema right frontal lobe. No herniation, hydrocephalus. No acute ischemic changes. ASSESSMENT/PLAN: Patient is a 62 year old male with history of stage four melanoma (s/p recent revision of craniotomy in January d/t leaking cyst), Afib (not on anticoagulation) , HTN, DM, COPD, presents with complaint of yellow, sticky discharge from Ommaya catheter for approx. 10 days and new left lower extremity weakness. Brain abscess -Patient is POD #6 s/p craniotomy. -ID consult (Dr. Wilhelm) appreciated: Empiric coverage with Ceftriaxone 2gm Q24H IV, Flagy 500mg Q8H IV. Ampicillin 2gm IV Q4H Vancomycin 1gram Q24H. -F/U vancomycin trough -Wound cultures noted. -CSF cultures negative for growth -Blood cultures- negative for growth -Tylenol 650mg PO Q6H PRN for pain 1-5 -Dilaudid 0.5mg IV Q4H for pain 6-10 Fevers -Unclear etiology. May be due to atelectasis, vs. C.diff vs. DVT. -Tmax today 101.2F -Chest xray shows bibasilar subsegmental atelectasis, and questionable small left pleural effusion. -Encourage continuous use of incentive spirometer -B/L lower extremity duplex US negative for DVT -Stool for C.diff negative. -Will consider blood cultures if fever progresses. Hypokalemia, hypophosphatemia -Repleted with Phos Na- K X2 PO packets -15mmol Na- phos IVPB -Will f/u BMP, Mg, Phos Adrenal Insufficiency -Endocrinology (Dr. Martinez) consult appreciated. -Reinstate home dose Prednisone 5mg AM, 2.5mg HS. Afib -Not on anticoagulation d/t history of GI bleed ?diverticulitis in 2016 -Continue Metoprolol 100mg PO AM, 50mg PO HS -Continue Digoxin 0.25mg PO daily HTN -Continue Metoprolol 100mg PO AM, 50mg PO HS DM -Begin Levemir 15 units subq in the mornings -ISS (scale and dosage updated) -BGM ACHS FEN -Patient tolerating PO fluids. Encourage judicious hydration. -Follow CMP -Diabetic diet Prophylaxis -Heparin 5000units subq TID Disposition -Continue care in medical-surgical floor Visit type - Emergency Visit Emergency Visit: Yes ED Registration Date: 03/27/18 Care time: The patient presented to the Emergency Department on the above date and was hospitalized for further evaluation of their emergent condition. - New Patient This patient is new to me today: No - Critical Care Critical Care patient: No - Discharge Referral Referred to [facility] Med P.C.: No
[2018-04-03] MEDS ORDERED: MAG HYDROX/AL HYDROX/SIMETH 30 ML UNIT-DOSE CUP PO ONE (22:35)
[2018-04-04] MEDS: AMPICILLIN - 2 GM in SODIUM CHLORIDE 100 ML IVPB SCH ×6 (02:15→21:36)
[2018-04-04] MEDS: DOCUSATE SODIUM 100 MG CAPSULE (FP) PO SCH ×3 (05:26→21:36)
[2018-04-04] MEDS: HEPARIN NA (PORCINE) 5,000 UNITS/ML 1ML VIAL SQ SCH ×3 (05:27→21:37)
[2018-04-04] MEDS: GABAPENTIN 300 MG CAPSULE (FP) PO SCH ×3 (05:28→21:37)
[2018-04-04] MEDS: INSULIN SLIDING SCALE (NOVOLOG) 1 VIAL SQ SCH ×4 (06:03→23:29)
[2018-04-04] MEDS: INSULIN (LEVEMIR) 100 UNITS/ML UNITS SQ SCH (06:07)
[2018-04-04] MEDS: VANCOMYCIN 1,000 MG in SODIUM CHLORIDE 250 ML IVPB SCH ×2 (06:09→19:02)
[2018-04-04 07:02] LABS: HEMATOCRIT 28.7 % (35.4-49); HEMOGLOBIN 9.8 GM/dL (11.7-16.9); MCH 33.1 pg (25.7-33.7); MEAN CELL VOLUME 97.2 fl (80-96); MEAN PLT VOLUME 7.8 fl (7.5-11.1); PLATELET COUNT 236 K/MM3 (134-434); RBC 2.95 M/mm3 (4.00-5.60); RDW 17.7 % (11.9-15.9)
--- NOTE | 2018-04-04 07:38 | PN ---
Progress Note (short form) - Note Progress Note: NEUROSURGERY POD #7 On 8W No H/A, No N/V, no sz tolerating diet well PE: Tmax 99.9, VSS Incision C/D/I General- unremarkable, in good spirit CN- nonfocal; motor- L LE 4+-5/5 CXR- bibasilar atelectasis LE doppler negative for DVT Brain abscess: s/p craniectomy, debridement, Ommaya reservoir removal Stable neurologically Care d/w ID and medical team Cont iv abx- on amp/vanco/flagyl per ID OOB/mobilize Incentive spirometry DVT prophylaxis PT May discharge when afebrile and iv abx regimen/logistics finalized D/w medical team
[2018-04-04 07:45] LABS: ALBUMIN 2.1 g/dl (3.4-5.0); ALK PHOS 83 U/L (45-117); ANION GAP 13 MMOL/L (8-16); BILIRUBIN,TOTAL 0.4 mg/dL (0.2-1); BLOOD UREA NITROGEN 11 mg/dL (7-18); CHLORIDE 104 mmol/L (98-107); CO2 24 mmol/L (21-32); CREATININE 0.9 mg/dL (0.55-1.3); GLUCOSE,RANDOM 271 mg/dL (74-106); MAGNESIUM 1.7 mg/dL (1.8-2.4); PHOSPHOROUS 2.4 mg/dL (2.5-4.9); POTASSIUM 3.8 mmol/L (3.5-5.1); SGOT/AST 16 U/L (15-37); SGPT/ALT 29 U/L (13-61); SODIUM 141 mmol/L (136-145); TOT PROT 4.9 g/dl (6.4-8.2)
--- NOTE | 2018-04-04 08:31 | PN ---
Physical Exam: SUBJECTIVE: Patient seen and examined at bedside this morning. He is POD #7 s/p craniotomy, abscess debridement, and Ommaya catheter removal. Admits continued improvement with tremor in the left hand, diminishing in intensity. Tmax 99.9F today morning. Urinating well, and had solid bowel movement this morning with 30mL mag-hydrox. Patient denies headache, double vision, dizziness, chills, shortness of breath, chest pain, palpitations, abdominal pain, nausea vomiting, diarrhea, constipation, melena hematochezia, dysuria, hematuria. He states he would like to go to a Christening this Monday, and hopes to be well for the event. Is considering rehab, to take the strain off his . OBJECTIVE: Vital Signs Period Temp Pulse Resp BP Sys/Betancourt Pulse Ox Last 24 Hr 98.3 F-100.3 F 85-97 18-20 123-143/66-71 94-94 GENERAL: The patient is awake, alert, and fully oriented, in no acute distress. HEAD: S/P craniotomy. scar visualized, clean cutures. No active draining. EYES: PERRLA, extraocular movements intact b/l. No nystagmus b/l. Sclera anicteric, conjunctiva clear. ENT: Oropharynx clear without exudates or lesions. Moist mucous membranes. NECK: Trachea midline, Supple without lymphadenopathy. LUNGS: Good inspiratory effort. Breath sounds equal, clear to auscultation bilaterally. No wheezes. No accessory muscle use. HEART: Irregular rate and rhythm. S1, S2 auscultated without murmur appreciated. ABDOMEN: Soft, nontender, nondistended. Normoactive bowel sounds x4 quadrants. No guarding, no rebound. No hepatosplenomegaly appreciated.. EXTREMITIES: 2+ radial and dorsalis pedis pulses. Warm. No lower extremity edema b/l. NEUROLOGICAL: Cranial nerves II through XII grossly intact. Normal speech. Strength 5/5 b/l upper extremities in flexion, extension, abduciton, adduction. Tremor in left arm diminishing with strength testing against resistance. Biceps reflex 2+ b/l. Strength 5/5 right lower extremity in hip flexion, extension and knee flexion, extension. Patellar and Achilles tendon reflex 2+ b/l. 5/5 in left lower extremity hip flexion, extension and 4/5 knee flexion, extension. 1+ left patellar reflex, 2+ left Achilles tendon. Plantarflexion and dorsiflexion 5 /5 b/l. Sensation intact b/l upper and lower extremities. PSYCH: Mood and affect appropriate upon my encounter today. Laboratory Results - last 24 hr 04/03/18 04/03/18 04/03/18 07:15 12:35 16:35 WBC RBC Hgb Hct MCV MCH MCHC RDW Plt Count MPV Sodium 138 Potassium 3.4 L Chloride 101 Carbon Dioxide 29 Anion Gap 8 BUN 13 Creatinine 0.7 Creat Clearance w eGFR > 60 POC Glucometer 179 Random Glucose 161 H Calcium 7.7 L Phosphorus 2.2 L Magnesium 1.9 Total Bilirubin 0.6 AST 21 ALT 34 Alkaline Phosphatase 72 Total Protein 5.1 L Albumin 2.2 L Vancomycin Pre-Dose 4.7 L Digoxin 1.10 04/03/18 04/03/18 04/03/18 16:35 17:27 21:09 WBC RBC Hgb Hct MCV MCH MCHC RDW Plt Count MPV Sodium 137 Potassium 4.1 Chloride 100 Carbon Dioxide 28 Anion Gap 9 BUN 14 Creatinine 0.8 Creat Clearance w eGFR > 60 POC Glucometer 292 321 Random Glucose 295 H Calcium 8.1 L Phosphorus 2.0 L Magnesium Total Bilirubin AST ALT Alkaline Phosphatase Total Protein Albumin Vancomycin Pre-Dose Digoxin 04/04/18 04/04/18 04/04/18 05:41 06:30 06:30 WBC 7.0 RBC 2.95 L Hgb 9.8 L Hct 28.7 L MCV 97.2 H MCH 33.1 MCHC 34.0 RDW 17.7 H Plt Count 236 D MPV 7.8 Sodium 141 Potassium 3.8 Chloride 104 Carbon Dioxide 24 Anion Gap 13 BUN 11 Creatinine 0.9 Creat Clearance w eGFR > 60 POC Glucometer 281 Random Glucose 271 H Calcium 8.0 L Phosphorus 2.4 L Magnesium 1.7 L Total Bilirubin 0.4 AST 16 ALT 29 Alkaline Phosphatase 83 Total Protein 4.9 L Albumin 2.1 L Vancomycin Pre-Dose Digoxin Active Medications Generic Name Dose Route Start Last Admin Trade Name Freq PRN Reason Stop Dose Admin Acetaminophen 650 mg 03/31/18 16:28 04/03/18 08:56 Tylenol - PO 650 mg Q6H PRN Administration TEMP > 100 Ascorbic Acid 250 mg 03/31/18 10:00 04/03/18 10:25 Vitamin C - PO 250 mg DAILY [facility] Administration Budesonide/Formoterol Fumarate 1 puff 03/30/18 22:00 04/03/18 21:43 Symbicort 160/4.5mcg - IH 1 puff BID [facility] Administration Digoxin 0.25 mg 03/31/18 10:00 04/03/18 10:27 Lanoxin - PO 0.25 mg DAILY [facility] Administration Docusate Sodium 100 mg 03/30/18 22:00 04/04/18 05:26 Colace - PO Not Given TID [facility] Ferrous Sulfate 325 mg 03/30/18 22:00 04/03/18 21:33 Feosol - PO 325 mg BID [facility] Administration Gabapentin 600 mg 03/30/18 22:00 04/04/18 05:28 Neurontin - PO 600 mg TID [facility] Administration Heparin Sodium (Porcine) 5,000 unit 03/30/18 22:00 04/04/18 05:27 Heparin - SQ 5,000 unit TID [facility] Administration Ampicillin Sodium 2 gm/ Sodium 100 mls @ 200 mls/hr 03/30/18 18:00 04/04/18 05:26 Chloride IVPB 200 mls/hr Q4H-IV [facility] Administration Metronidazole 500 mg in 100 mls @ 100 mls/hr 03/30/18 18:00 04/04/18 01:15 Flagyl 500mg Premixed Ivpb - IVPB 100 mls/hr Q8H-IV [facility] Administration Vancomycin HCl 1,000 mg/ 250 mls @ 200 mls/hr 04/03/18 18:15 04/04/18 06:09 Sodium Chloride IVPB 200 mls/hr Q12H [facility] Administration Protocol Insulin Aspart 1 vial 03/30/18 14:09 04/04/18 06:03 Novolog Vial Sliding Scale - SQ 7 units ACHS [facility] Administration Protocol Insulin Detemir 7 units 04/02/18 17:52 04/04/18 06:07 Levemir Vial SQ 7 units 0700 [facility] Administration Lactobacillus Acidophilus 1 tab 03/31/18 10:00 04/03/18 10:25 Bacid - PO 1 tab DAILY [facility] Administration Magnesium Oxide 400 mg 04/04/18 07:58 Mag-Ox - PO 04/04/18 07:59 ONCE ONE Metoprolol Succinate 50 mg 03/30/18 22:00 04/03/18 21:33 Toprol Xl - PO 50 mg HS [facility] Administration Metoprolol Succinate 100 mg 03/31/18 07:00 04/04/18 06:13 Toprol Xl - PO 100 mg DAILY@0700 [facility] Administration Non-Formulary Medication 15 gm 03/30/18 16:53 Levalbuterol Tartrate [Xopenex Hfa] IH Q4H PRN SHORTNESS OF BREATH Ondansetron HCl 4 mg 03/30/18 16:53 Zofran Injection IVPUSH Q6H PRN NAUSEA Pantoprazole Sodium 40 mg 04/01/18 10:00 04/03/18 10:25 Protonix - PO 40 mg DAILY [facility] Administration Potassium Phos/Sodium Phos 1 packet 04/04/18 07:58 Phos-Nak Packet - PO 04/04/18 07:59 ONCE ONE Prednisone 5 mg 04/02/18 10:00 04/03/18 10:25 Deltasone - PO 5 mg DAILY [facility] Administration Prednisone 2.5 mg 04/01/18 22:00 04/03/18 21:45 Deltasone - PO 2.5 mg HS [facility] Administration IMAGING: CT head: Nonspecific right frontal rim enhancing lesion 3.4 x 3.4 x 3.3 cm concerning for abscess vs. neoplastic disease. MRI head: Vasogenic edema of right frontal lobe. Findings suggestive of abscess with subdural empyema CT head (post-operative): Vasogenic edema right frontal lobe. No herniation, hydrocephalus. No acute ischemic changes. ASSESSMENT/PLAN: Patient is a 62 year old male with history of stage four melanoma (s/p recent revision of craniotomy in January d/t leaking cyst), Afib (not on anticoagulation) , HTN, DM, COPD, presents with complaint of yellow, sticky discharge from Ommaya catheter for approx. 10 days and new left lower extremity weakness. Brain abscess -Patient is POD #7 s/p craniotomy. -ID consult (Dr. Wilhelm) appreciated: Empiric coverage with Ampicillin 2gm IV Q4H , Vancomycin 1gram Q12H. -F/U vancomycin trough -Wound cultures noted. -CSF cultures negative for growth -Blood cultures- negative for growth -Tylenol 650mg PO Q6H PRN for pain 1-5 -Dilaudid 0.5mg IV Q4H for pain 6-10 Fevers -Unclear etiology. May be due to atelectasis, vs. C.diff vs. DVT. -Tmax today 101.2F -Chest xray shows bibasilar subsegmental atelectasis, and questionable small left pleural effusion. -Encourage continuous use of incentive spirometer -B/L lower extremity duplex US negative for DVT -Stool for C.diff negative. -Will consider blood cultures if fever progresses. Hypokalemia, hypophosphatemia -Repleted with Phos Na- K X2 PO packets -15mmol Na- phos IVPB -Will f/u BMP, Mg, Phos Adrenal Insufficiency -Endocrinology (Dr. Martinez) consult appreciated. -Reinstate home dose Prednisone 5mg AM, 2.5mg HS. Afib -Not on anticoagulation d/t history of GI bleed ?diverticulitis in 2016 -Continue Metoprolol 100mg PO AM, 50mg PO HS -Continue Digoxin 0.25mg PO daily HTN -Continue Metoprolol 100mg PO AM, 50mg PO HS DM -Begin Levemir 15 units subq in the mornings -ISS (scale and dosage updated) -BGM ACHS FEN -Patient tolerating PO fluids. Encourage judicious hydration. -Follow CMP -Diabetic diet Prophylaxis -Heparin 5000units subq TID Disposition -Continue care in medical-surgical floor Visit type - Emergency Visit Emergency Visit: Yes ED Registration Date: 03/27/18 Care time: The patient presented to the Emergency Department on the above date and was hospitalized for further evaluation of their emergent condition. - New Patient This patient is new to me today: No - Critical Care Critical Care patient: No - Discharge Referral Referred to [facility] Med P.C.: No
[2018-04-04] MEDS ORDERED: NAPH,MB-DB/K PH,MBDB POWDER PACKET PO ONE (09:00)
[2018-04-04] MEDS ORDERED: MAGNESIUM OXIDE 400 MG TABLET (FP) PO ONE (09:00)
[2018-04-04] MEDS ORDERED: PT OWN MED DRAWER 7, Y5N ONE ×4 (09:42→20:43)
[2018-04-04] MEDS: predniSONE 5 MG TABLET (UD) PO SCH ×2 (09:44→21:37)
[2018-04-04] MEDS: PANTOPRAZOLE 40 MG TABLET (FP) PO SCH (09:44)
[2018-04-04] MEDS: LACTOBACILLUS ACIDOPHILUS 1 TABLET PO SCH (09:45)
[2018-04-04] MEDS: DIGOXIN 0.25 MG TABLET (FP) PO SCH (09:45)
[2018-04-04] MEDS: FERROUS SO4 325 MG TABLET (FP) PO SCH ×2 (09:45→21:37)
[2018-04-04] MEDS: ASCORBIC ACID 500 MG TABLET (FP) PO SCH (09:45)
[2018-04-04] MEDS: BUDESONIDE/FORMETEROL FUMARATE 160/4.5 mcg INHALER IH SCH ×2 (09:46→21:37)
--- NOTE | 2018-04-04 11:31 | PN ---
Progress Note, Physician History of Present Illness: 62 yr old white man with PMHx melanoma, s/p craniotomy 12/2017, thoracic vetebral surgery 01/2018, AF, HTN, DM, now admitted with fever and weakness. Pt had been undergoing physical therapy at home, but felt too weak to continue. - Current Medication List Current Medications: Active Medications Acetaminophen (Tylenol -) 650 mg PO Q6H PRN PRN Reason: TEMP > 100 Last Admin: 04/03/18 08:56 Dose: 650 mg Ascorbic Acid (Vitamin C -) 250 mg PO DAILY [facility] Last Admin: 04/04/18 09:45 Dose: 250 mg Budesonide/Formoterol Fumarate (Symbicort 160/4.5mcg -) 1 puff IH BID [facility] Last Admin: 04/04/18 09:46 Dose: 1 puff Digoxin (Lanoxin -) 0.25 mg PO DAILY [facility] Last Admin: 04/04/18 09:45 Dose: 0.25 mg Docusate Sodium (Colace -) 100 mg PO TID [facility] Last Admin: 04/04/18 05:26 Dose: Not Given Ferrous Sulfate (Feosol -) 325 mg PO BID [facility] Last Admin: 04/04/18 09:45 Dose: 325 mg Gabapentin (Neurontin -) 600 mg PO TID [facility] Last Admin: 04/04/18 05:28 Dose: 600 mg Heparin Sodium (Porcine) (Heparin -) 5,000 unit SQ TID [facility] Last Admin: 04/04/18 05:27 Dose: 5,000 unit Ampicillin Sodium 2 gm/ Sodium (Chloride) 100 mls @ 200 mls/hr IVPB Q4H-IV [facility] Last Admin: 04/04/18 09:45 Dose: 200 mls/hr Metronidazole (Flagyl 500mg Premixed Ivpb -) 500 mg in 100 mls @ 100 mls/hr IVPB Q8H-IV [facility] Last Admin: 04/04/18 10:48 Dose: 100 mls/hr Vancomycin HCl 1,000 mg/ (Sodium Chloride) 250 mls @ 200 mls/hr IVPB Q12H [facility]; Protocol Last Admin: 04/04/18 06:09 Dose: 200 mls/hr Insulin Aspart (Novolog Vial Sliding Scale -) 1 vial SQ ACHS [facility]; Protocol Last Admin: 04/04/18 06:03 Dose: 7 units Insulin Detemir (Levemir Vial) 7 units SQ 0700 [facility] Last Admin: 04/04/18 06:07 Dose: 7 units Lactobacillus Acidophilus (Bacid -) 1 tab PO DAILY [facility] Last Admin: 04/04/18 09:45 Dose: 1 tab Metoprolol Succinate (Toprol Xl -) 50 mg PO HS [facility] Last Admin: 04/03/18 21:33 Dose: 50 mg Metoprolol Succinate (Toprol Xl -) 100 mg PO DAILY@0700 [facility] Last Admin: 04/04/18 06:13 Dose: 100 mg Non-Formulary Medication (Levalbuterol Tartrate [Xopenex Hfa]) 15 gm IH Q4H PRN PRN Reason: SHORTNESS OF BREATH Ondansetron HCl (Zofran Injection) 4 mg IVPUSH Q6H PRN PRN Reason: NAUSEA Pantoprazole Sodium (Protonix -) 40 mg PO DAILY [facility] Last Admin: 04/04/18 09:44 Dose: 40 mg Prednisone (Deltasone -) 5 mg PO DAILY [facility] Last Admin: 04/04/18 09:44 Dose: 5 mg Prednisone (Deltasone -) 2.5 mg PO [facility] Last Admin: 04/03/18 21:45 Dose: 2.5 mg - Objective Vital Signs: Vital Signs Temperature 99.9 F H 04/04/18 06:00 Pulse Rate 88 04/04/18 09:45 Respiratory Rate 20 04/04/18 06:00 Blood Pressure 136/69 04/04/18 06:00 O2 Sat by Pulse Oximetry (%) 94 L 04/03/18 21:00 Eyes: Yes: WNL, Conjunctiva Clear, EOM Intact HENT: Yes: WNL, Atraumatic, Normocephalic Neck: Yes: WNL, Supple, Trachea Midline Cardiovascular: Yes: WNL, Regular Rate and Rhythm Respiratory: Yes: WNL, Regular, CTA Bilaterally Gastrointestinal: Yes: WNL, Normal Bowel Sounds Genitourinary: Yes: WNL Musculoskeletal: Yes: WNL Extremities: Yes: WNL Edema: No Integumentary: Yes: WNL Neurological: Yes: WNL, Alert, Oriented ...Motor Strength: WNL Psychiatric: Yes: WNL Labs: CBC, BMP 04/04/18 06:30 09/26/18 06:30 INR, PTT INR 1.18 (0.83-1.09) H 03/28/18 07:10 Assessment/Plan Problems (1) Sepsis Assessment/Plan: low-grade fever persists; f/u with ID. Code(s): A41.9 - SEPSIS, UNSPECIFIED ORGANISM Qualifiers: Sepsis type: puerperal sepsis Qualified Code(s): O85 - Puerperal sepsis (2) Anemia Code(s): D64.9 - ANEMIA, UNSPECIFIED Qualifiers: Anemia type: unspecified type Qualified Code(s): D64.9 - Anemia, unspecified (3) Atrial fibrillation Assessment/Plan: Now on metoprolol ER 50 mg daily. On digoxin; f/u level (keep 0.5-1.0); review need for continuation of this medication (on metoprolol for HR control; LVEF WNL). Not on anticoagulant (?due to prior GI bleed); review feasibility of starting warfarin or NOAC. Normal LVEF; mild-moderate LA size;mild MR and TR by 2015 ECHO. Code(s): I48.91 - UNSPECIFIED ATRIAL FIBRILLATION Qualifiers: Atrial fibrillation type: unspecified Qualified Code(s): I48.91 - Unspecified atrial fibrillation (4) COPD (chronic obstructive pulmonary disease) Code(s): J44.9 - CHRONIC OBSTRUCTIVE PULMONARY DISEASE, UNSPECIFIED (5) Melanoma Assessment/Plan: post-craniotomy. MRI: likely abscess, subdural empyema. s/p operation of cranial wound by Dr. Simmons. Code(s): C43.9 - MALIGNANT MELANOMA OF SKIN, UNSPECIFIED (6) Weakness Code(s): R53.1 - WEAKNESS (7) Hypokalemia Assessment/Plan: replete, and keep K 4-4.5. F/u digoxin level; review need for continuation of the medication (on metoprolol for HR control; LVEF is WNL on ECHO). Code(s): E87.6 - HYPOKALEMIA
--- NOTE | 2018-04-04 15:06 | PN ---
Teaching Attending Note Name of Resident: Dileep Valenzuela ATTENDING PHYSICIAN STATEMENT I saw and evaluated the patient. I reviewed the resident's note and discussed the case with the resident. I agree with the resident's findings and plan as documented. SUBJECTIVE: Patient is feeling better, no fever for now. OBJECTIVE: Vital Signs Temperature 98.9 F 04/04/18 14:42 Pulse Rate 80 04/04/18 14:42 Respiratory Rate 18 04/04/18 14:42 Blood Pressure 128/78 04/04/18 14:42 O2 Sat by Pulse Oximetry (%) 94 L 04/03/18 21:00 GENERAL: The patient is awake, alert, and fully oriented, in no acute distress. HEAD: S/P craniotomy. scar visualized. No active draining. EYES: PERRLA, extraocular movements intact b/l. Sclera anicteric, conjunctiva clear. ENT: Oropharynx clear without exudates or lesions. Moist mucous membranes. NECK: Trachea midline, Supple without lymphadenopathy. LUNGS: CTA BL ood inspiratory effort. Breath sounds equal, clear to auscultation bilaterally. CVS: RRR, S1, S2 auscultated without murmur appreciated. ABDOMEN: Soft, nontender, nondistended. Normoactive bowel sounds x4 quadrants. No hepatosplenomegaly appreciated.. EXTREMITIES: 2+ radial and dorsalis pedis pulses. Warm. No lower extremity edema b/l. NEUROLOGICAL: Cranial nerves II through XII grossly intact. PSYCH: Mood and affect appropriate CBCD WBC 7.0 K/mm3 (4.0-10.0) 04/04/18 06:30 RBC 2.95 M/mm3 (4.00-5.60) L 04/04/18 06:30 Hgb 9.8 GM/dL (11.7-16.9) L 04/04/18 06:30 Hct 28.7 % (35.4-49) L 04/04/18 06:30 MCV 97.2 fl (80-96) H 04/04/18 06:30 MCHC 34.0 g/dl (32.0-35.9) 04/04/18 06:30 RDW 17.7 % (11.9-15.9) H 04/04/18 06:30 Plt Count 236 K/MM3 (134-434) D 04/04/18 06:30 MPV 7.8 fl (7.5-11.1) 04/04/18 06:30 CMP Sodium 141 mmol/L (136-145) 04/04/18 06:30 Potassium 3.8 mmol/L (3.5-5.1) 04/04/18 06:30 Chloride 104 mmol/L (98-107) 04/04/18 06:30 Carbon Dioxide 24 mmol/L (21-32) 04/04/18 06:30 Anion Gap 13 MMOL/L (8-16) 04/04/18 06:30 BUN 11 mg/dL (7-18) 04/04/18 06:30 Creatinine 0.9 mg/dL (0.55-1.3) 04/04/18 06:30 Creat Clearance w eGFR > 60 (>60) 04/04/18 06:30 Random Glucose 271 mg/dL (74-106) H 04/04/18 06:30 Calcium 8.0 mg/dL (8.5-10.1) L 04/04/18 06:30 Total Bilirubin 0.4 mg/dL (0.2-1) 04/04/18 06:30 AST 16 U/L (15-37) 04/04/18 06:30 ALT 29 U/L (13-61) 04/04/18 06:30 Alkaline Phosphatase 83 U/L (45-117) 04/04/18 06:30 Total Protein 4.9 g/dl (6.4-8.2) L 04/04/18 06:30 Albumin 2.1 g/dl (3.4-5.0) L 04/04/18 06:30 CARDIAC ENZYMES Troponin I < 0.02 ng/ml (0.00-0.05) 03/27/18 15:23 Home Medications Medication Instructions Recorded Budesonide/Formoterol Fumarate 1 ih IH BID 11/08/11 [Symbicort 160-4.5 Mcg Inhaler] Metformin HCl [Metformin HCl ER] 500 mg PO BID 12/09/15 Metoprolol Succinate [Toprol XL -] 50 mg PO HS 12/09/15 Ascorbic Acid [Vitamin C -] 100 mg PO DAILY 04/09/16 Ferrous Sulfate [Feosol] 325 mg PO BID 04/09/16 Gabapentin [Neurontin] 600 mg PO TID 04/09/16 Metoprolol Succinate [Toprol XL -] 100 mg PO AM 04/09/16 Digoxin [Lanoxin -] 0.25 mg PO DAILY #30 tablet 04/12/16 Pantoprazole Sodium [Protonix -] 40 mg PO DAILY 10/18/16 Prednisone 5 mg PO AM 10/18/16 Repaglinide [Prandin -] 1 mg PO DAILY 10/18/16 predniSONE [Deltasone -] 2.5 mg PO HS 10/18/16 Levalbuterol Tartrate [Xopenex Hfa] 15 gm IH PRN 02/15/18 ASSESSMENT AND PLAN: Patient is a 62 year-old man with a PMH of metastatic melanoma , HTN, afib, NIDDM, adrenal insufficiency, COPD, HLP, nephrectomy, metastatic melanoma s/p craniotomy 5 years ago, s/p re-do craniotomy 01/24 fro fluid collection, and Ommaya cath placement, T7-8 disc herniation s/p spinal sx in 02/24 , who presented with fever and purulent drainage from scalp incision site. He was found to have R frontal collection # Right frontal abscess: s/p craniotomy by Dr.Tom Simmons s/p debridement and drainage. on IV Abx , vanco, flagyl and ampicillin will continue, ID on the case vanco trough goal is 15-20, follow the level. # H/o A fib: cont home dig and toprol, dig level noted # H/o adrenal insufficiency: cont home dose Prednisone 5mg in am and 2.5mg in HS # DM : cont levemir 7U,and SSI . # h/o metastatic melanoma: out pt follow up Heparin sq
[2018-04-04] MEDS ORDERED: INSULIN (NOVOLOG) ASPART 100 UNITS/ML 10ML VIAL ONE (21:15)
--- NOTE | 2018-04-04 22:19 | PN ---
Progress Note, Physician History of Present Illness: POD # 7 R frontal craniotomy, debridement/ abscess drainage, removal of Ommaya catheter Awake, alert, oriented No c/o pain Low grade temp Ommaya catheter c/s P. acnes - Current Medication List Current Medications: Active Medications Acetaminophen (Tylenol -) 650 mg PO Q6H PRN PRN Reason: TEMP > 100 Last Admin: 04/03/18 08:56 Dose: 650 mg Ascorbic Acid (Vitamin C -) 250 mg PO DAILY [facility] Last Admin: 04/04/18 09:45 Dose: 250 mg Budesonide/Formoterol Fumarate (Symbicort 160/4.5mcg -) 1 puff IH BID [facility] Last Admin: 04/04/18 21:37 Dose: 1 puff Digoxin (Lanoxin -) 0.25 mg PO DAILY [facility] Last Admin: 04/04/18 09:45 Dose: 0.25 mg Docusate Sodium (Colace -) 100 mg PO TID [facility] Last Admin: 04/04/18 21:36 Dose: Not Given Ferrous Sulfate (Feosol -) 325 mg PO BID [facility] Last Admin: 04/04/18 21:37 Dose: 325 mg Gabapentin (Neurontin -) 600 mg PO TID [facility] Last Admin: 04/04/18 21:37 Dose: 600 mg Heparin Sodium (Porcine) (Heparin -) 5,000 unit SQ TID [facility] Last Admin: 04/04/18 21:37 Dose: 5,000 unit Ampicillin Sodium 2 gm/ Sodium (Chloride) 100 mls @ 200 mls/hr IVPB Q4H-IV [facility] Last Admin: 04/04/18 21:36 Dose: 200 mls/hr Vancomycin HCl 1,000 mg/ (Sodium Chloride) 250 mls @ 200 mls/hr IVPB Q12H [facility]; Protocol Last Admin: 04/04/18 19:02 Dose: 200 mls/hr Insulin Aspart (Novolog Vial Sliding Scale -) 1 vial SQ ACHS [facility]; Protocol Last Admin: 04/04/18 17:54 Dose: 9 units Insulin Detemir (Levemir Vial) 7 units SQ 0700 [facility] Last Admin: 04/04/18 06:07 Dose: 7 units Lactobacillus Acidophilus (Bacid -) 1 tab PO DAILY [facility] Last Admin: 04/04/18 09:45 Dose: 1 tab Metoprolol Succinate (Toprol Xl -) 50 mg PO HS [facility] Last Admin: 04/04/18 21:37 Dose: 50 mg Metoprolol Succinate (Toprol Xl -) 100 mg PO DAILY@0700 [facility] Last Admin: 04/04/18 06:13 Dose: 100 mg Non-Formulary Medication (Levalbuterol Tartrate [Xopenex Hfa]) 15 gm IH Q4H PRN PRN Reason: SHORTNESS OF BREATH Ondansetron HCl (Zofran Injection) 4 mg IVPUSH Q6H PRN PRN Reason: NAUSEA Pantoprazole Sodium (Protonix -) 40 mg PO DAILY [facility] Last Admin: 04/04/18 09:44 Dose: 40 mg Prednisone (Deltasone -) 5 mg PO DAILY [facility] Last Admin: 04/04/18 09:44 Dose: 5 mg Prednisone (Deltasone -) 2.5 mg PO [facility] Last Admin: 04/04/18 21:37 Dose: 2.5 mg - Objective Vital Signs: Vital Signs Temperature 98.4 F 04/04/18 20:00 Pulse Rate 94 H 04/04/18 20:00 Respiratory Rate 17 04/04/18 20:00 Blood Pressure 121/67 04/04/18 20:00 O2 Sat by Pulse Oximetry (%) 94 L 04/04/18 09:00 Constitutional: Yes: No Distress Eyes: Yes: Conjunctiva Clear HENT: Yes: Other (craniotomy wound healing well No erythema/drainage) Cardiovascular: Yes: Regular Rate and Rhythm, S1, S2 Respiratory: Yes: CTA Bilaterally Gastrointestinal: Yes: Normal Bowel Sounds, Soft Edema: Yes Edema: LLE: 1+, RLE: 1+ Labs: CBC, BMP 04/04/18 06:30 04/04/18 06:30 INR, PTT INR 1.18 (0.83-1.09) H 03/28/18 07:10 Assessment/Plan POD #7 R frontal craniotomy/ debridement/ abscess drainage/ removal of Ommaya + catheter c/s P. acnes Stage IV melanoma Solitary kidney Continue ampicillin / vancomycin D/C flagyl
[2018-04-05] MEDS: AMPICILLIN - 2 GM in SODIUM CHLORIDE 100 ML IVPB SCH ×8 (01:22→21:58)
[2018-04-05] MEDS: HEPARIN NA (PORCINE) 5,000 UNITS/ML 1ML VIAL SQ SCH ×3 (06:25→22:00)
[2018-04-05] MEDS: DOCUSATE SODIUM 100 MG CAPSULE (FP) PO SCH ×4 (06:25→21:59)
[2018-04-05] MEDS: VANCOMYCIN 1,000 MG in SODIUM CHLORIDE 250 ML IVPB SCH ×2 (06:25→17:14)
[2018-04-05] MEDS: INSULIN SLIDING SCALE (NOVOLOG) 1 VIAL SQ SCH ×4 (06:30→22:03)
[2018-04-05] MEDS: GABAPENTIN 300 MG CAPSULE (FP) PO SCH ×3 (06:34→21:59)
[2018-04-05] MEDS: INSULIN (LEVEMIR) 100 UNITS/ML UNITS SQ SCH (06:34)
[2018-04-05 06:57] LABS: HEMATOCRIT 29.5 % (35.4-49); MCHC 33.9 g/dl (32.0-35.9); MEAN CELL VOLUME 97.2 fl (80-96); MEAN PLT VOLUME 7.7 fl (7.5-11.1); PLATELET COUNT 274 K/MM3 (134-434); RBC 3.03 M/mm3 (4.00-5.60); RDW 17.7 % (11.9-15.9); WHITE BLOOD COUNT 8.7 K/mm3 (4.0-10.0)
--- NOTE | 2018-04-05 07:30 | PN ---
Progress Note (short form) - Note Progress Note: NEUROSURGERY POD #8 On 8W No H/A, No N/V, no sz tolerating diet well Walked to nursing station yesterday PE: Tmax 99.5, VSS Incision C/D/I General- unremarkable, in good spirit CN- nonfocal; motor- L LE 4+-5/5 CXR- bibasilar atelectasis LE doppler negative for DVT catheter tip and cavity fluid- proprionobacter Brain abscess: s/p craniectomy, debridement, Ommaya reservoir removal Stable neurologically Care d/w ID and medical team Cont iv abx- on amp/vanco per ID Await sensitivity OOB/mobilize Incentive spirometry DVT prophylaxis PT Consider removing half of sutures tomorrow May discharge when afebrile and iv abx regimen/logistics finalized
[2018-04-05 07:53] LABS: ALBUMIN 2.2 g/dl (3.4-5.0); ALK PHOS 74 U/L (45-117); ANION GAP 11 MMOL/L (8-16); BILIRUBIN,TOTAL 0.5 mg/dL (0.2-1); BLOOD UREA NITROGEN 12 mg/dL (7-18); CALCIUM 8.2 mg/dL (8.5-10.1); CHLORIDE 104 mmol/L (98-107); CO2 27 mmol/L (21-32); CREATININE 0.6 mg/dL (0.55-1.3); GLUCOSE,RANDOM 180 mg/dL (74-106); MAGNESIUM 1.9 mg/dL (1.8-2.4); PHOSPHOROUS 2.7 mg/dL (2.5-4.9); SGOT/AST 22 U/L (15-37); SGPT/ALT 34 U/L (13-61); SODIUM 142 mmol/L (136-145); TOT PROT 5.2 g/dl (6.4-8.2)
[2018-04-05] MEDS ORDERED: INSULIN (NOVOLOG) ASPART 100 UNITS/ML 10ML VIAL ONE ×3 (08:14→17:25)
[2018-04-05] MEDS: DIGOXIN 0.25 MG TABLET (FP) PO SCH (10:38)
[2018-04-05] MEDS: FERROUS SO4 325 MG TABLET (FP) PO SCH ×2 (10:40→21:59)
[2018-04-05] MEDS: PANTOPRAZOLE 40 MG TABLET (FP) PO SCH (10:40)
[2018-04-05] MEDS: predniSONE 5 MG TABLET (UD) PO SCH ×2 (10:40→22:00)
[2018-04-05] MEDS: LACTOBACILLUS ACIDOPHILUS 1 TABLET PO SCH (10:40)
[2018-04-05] MEDS: BUDESONIDE/FORMETEROL FUMARATE 160/4.5 mcg INHALER IH SCH ×2 (10:41→21:59)
[2018-04-05] MEDS: ASCORBIC ACID 500 MG TABLET (FP) PO SCH (10:41)
--- NOTE | 2018-04-05 15:18 | PN ---
Physical Exam: SUBJECTIVE: Patient seen and examined at bedside this morning. He is POD #8 s/p craniotomy, abscess debridement, and Ommaya catheter removal. Admits continued improvement with tremor in the left hand, diminishing in intensity and frequency. Tmax 99.0F today morning. Patient denies headache, double vision, dizziness, chills, shortness of breath, chest pain, palpitations, abdominal pain , nausea vomiting, diarrhea, constipation, melena, hematochezia, dysuria, hematuria. Discussed plan for possible discharge with his over the phone today, and expresses concern that he is not strong enough to come home, and she is unable to take care of him. OBJECTIVE: Vital Signs Period Temp Pulse Resp BP Sys/Betancourt Pulse Ox Last 24 Hr 98.4 F-99.5 F 19-94 17-20 121-147/67-78 96 GENERAL: The patient is awake, alert, and fully oriented, in no acute distress. HEAD: S/P craniotomy. Scar visualized, clean sutures. No active draining. EYES: PERRLA, extraocular movements intact b/l. No nystagmus b/l. Sclera anicteric, conjunctiva clear. ENT: Oropharynx clear without exudates or lesions. Moist mucous membranes. NECK: Trachea midline, Supple without lymphadenopathy. LUNGS: Good inspiratory effort. Breath sounds equal, clear to auscultation bilaterally. No wheezes. No accessory muscle use. HEART: Irregular rate and rhythm. S1, S2 auscultated without murmur appreciated. ABDOMEN: Soft, nontender, nondistended. Normoactive bowel sounds x4 quadrants. No guarding, no rebound. No hepatosplenomegaly appreciated.. EXTREMITIES: 2+ radial and dorsalis pedis pulses. Warm. No lower extremity edema b/l. NEUROLOGICAL: Cranial nerves II through XII grossly intact. Normal speech. Strength 5/5 b/l upper extremities in flexion, extension, abduciton, adduction. Tremor in left arm diminishing with strength testing against resistance. Biceps reflex 2+ b/l. Strength 5/5 right lower extremity in hip flexion, extension and knee flexion, extension. Patellar and Achilles tendon reflex 2+ b/l. 5/5 in left lower extremity hip flexion, extension and 4/5 knee flexion, extension. 1+ left patellar reflex, 2+ left Achilles tendon. Plantarflexion and dorsiflexion 5 /5 b/l. Sensation intact b/l upper and lower extremities. PSYCH: Mood and affect appropriate upon my encounter today. Laboratory Results - last 24 hr 04/04/18 04/04/18 04/05/18 17:50 21:11 06:23 WBC RBC Hgb Hct MCV MCH MCHC RDW Plt Count MPV Sodium Potassium Chloride Carbon Dioxide Anion Gap BUN Creatinine Creat Clearance w eGFR POC Glucometer 332 315 213 Random Glucose Calcium Phosphorus Magnesium Total Bilirubin AST ALT Alkaline Phosphatase Total Protein Albumin 04/05/18 04/05/18 04/05/18 06:31 06:31 11:39 WBC 8.7 RBC 3.03 L Hgb 10.0 L Hct 29.5 L MCV 97.2 H MCH 33.0 MCHC 33.9 RDW 17.7 H Plt Count 274 MPV 7.7 Sodium 142 Potassium 4.0 Chloride 104 Carbon Dioxide 27 Anion Gap 11 BUN 12 Creatinine 0.6 Creat Clearance w eGFR > 60 POC Glucometer 173 Random Glucose 180 H Calcium 8.2 L Phosphorus 2.7 Magnesium 1.9 Total Bilirubin 0.5 AST 22 ALT 34 Alkaline Phosphatase 74 Total Protein 5.2 L Albumin 2.2 L Active Medications Generic Name Dose Route Start Last Admin Trade Name Freq PRN Reason Stop Dose Admin Acetaminophen 650 mg 03/31/18 16:28 04/03/18 08:56 Tylenol - PO 650 mg Q6H PRN Administration TEMP > 100 Ascorbic Acid 250 mg 03/31/18 10:00 04/05/18 10:41 Vitamin C - PO 250 mg DAILY [facility] Administration Budesonide/Formoterol Fumarate 1 puff 03/30/18 22:00 04/05/18 10:41 Symbicort 160/4.5mcg - IH 1 puff BID [facility] Administration Digoxin 0.25 mg 03/31/18 10:00 04/05/18 10:38 Lanoxin - PO 0.25 mg DAILY [facility] Administration Docusate Sodium 100 mg 03/30/18 22:00 04/05/18 14:33 Colace - PO 100 mg TID [facility] Administration Ferrous Sulfate 325 mg 03/30/18 22:00 04/05/18 10:40 Feosol - PO 325 mg BID [facility] Administration Gabapentin 600 mg 03/30/18 22:00 04/05/18 14:33 Neurontin - PO 600 mg TID [facility] Administration Heparin Sodium (Porcine) 5,000 unit 03/30/18 22:00 04/05/18 14:33 Heparin - SQ 5,000 unit TID [facility] Administration Ampicillin Sodium 2 gm/ Sodium 100 mls @ 200 mls/hr 03/30/18 18:00 04/05/18 14:35 Chloride IVPB Not Given Q4H-IV [facility] Vancomycin HCl 1,000 mg/ 250 mls @ 200 mls/hr 04/03/18 18:15 04/05/18 06:25 Sodium Chloride IVPB 200 mls/hr Q12H [facility] Administration Protocol Insulin Aspart 1 vial 03/30/18 14:09 04/05/18 11:44 Novolog Vial Sliding Scale - SQ 3 units ACHS [facility] Administration Protocol Insulin Detemir 7 units 04/02/18 17:52 04/05/18 06:34 Levemir Vial SQ 7 units 0700 [facility] Administration Lactobacillus Acidophilus 1 tab 03/31/18 10:00 04/05/18 10:40 Bacid - PO 1 tab DAILY [facility] Administration Metoprolol Succinate 50 mg 03/30/18 22:00 04/04/18 21:37 Toprol Xl - PO 50 mg HS [facility] Administration Metoprolol Succinate 100 mg 03/31/18 07:00 04/05/18 06:25 Toprol Xl - PO 100 mg DAILY@0700 [facility] Administration Non-Formulary Medication 15 gm 03/30/18 16:53 Levalbuterol Tartrate [Xopenex Hfa] IH Q4H PRN SHORTNESS OF BREATH Ondansetron HCl 4 mg 03/30/18 16:53 Zofran Injection IVPUSH Q6H PRN NAUSEA Pantoprazole Sodium 40 mg 04/01/18 10:00 04/05/18 10:40 Protonix - PO 40 mg DAILY [facility] Administration Prednisone 5 mg 04/02/18 10:00 04/05/18 10:40 Deltasone - PO 5 mg DAILY [facility] Administration Prednisone 2.5 mg 04/01/18 22:00 04/04/18 21:37 Deltasone - PO 2.5 mg HS [facility] Administration IMAGING: CT head: Nonspecific right frontal rim enhancing lesion 3.4 x 3.4 x 3.3 cm concerning for abscess vs. neoplastic disease. MRI head: Vasogenic edema of right frontal lobe. Findings suggestive of abscess with subdural empyema CT head (post-operative): Vasogenic edema right frontal lobe. No herniation, hydrocephalus. No acute ischemic changes. ASSESSMENT/PLAN: Patient is a 62 year old male with history of stage four melanoma (s/p recent revision of craniotomy in January d/t leaking cyst), Afib (not on anticoagulation) , HTN, DM, COPD, presents with complaint of yellow, sticky discharge from Ommaya catheter for approx. 10 days and new left lower extremity weakness. Brain abscess -Patient is POD #7 s/p craniotomy. -ID consult (Dr. Wilhelm) appreciated: Empiric coverage with Ampicillin 2gm IV Q4H , Vancomycin 1gram Q12H. -Bacid 1 tablet PO daily. -Wound cultures noted. -CSF cultures negative for growth -Blood cultures- negative for growth -Tylenol 650mg PO Q6H PRN for pain 1-5 -Dilaudid 0.5mg IV Q4H for pain 6-10 Fevers -Resolved. Tmax 99.0F this morning. Hypokalemia, hypophosphatemia -Resolved. -Will continue follow up CMP, Mg, Phos. Adrenal Insufficiency -Endocrinology (Dr. Martinez) consult appreciated. -Reinstate home dose Prednisone 5mg AM, 2.5mg HS. Afib -Not on anticoagulation d/t history of GI bleed, questionable diverticulitis in 2015 -Continue Metoprolol 100mg PO AM, 50mg PO HS -Continue Digoxin 0.25mg PO daily HTN -Continue Metoprolol 100mg PO AM, 50mg PO HS DM -Levemir 7 units subq in the mornings -ISS -BGM ACHS FEN -Patient tolerating PO fluids. Encourage judicious hydration. -Follow CMP -Diabetic diet Prophylaxis -Heparin 5000units subq TID -Pantoprazole 40mg PO daily Disposition -Continue care in medical-surgical floor Visit type - Emergency Visit Emergency Visit: Yes ED Registration Date: 03/27/18 Care time: The patient presented to the Emergency Department on the above date and was hospitalized for further evaluation of their emergent condition. - New Patient This patient is new to me today: No - Critical Care Critical Care patient: No - Discharge Referral Referred to [facility] Med P.C.: No
--- NOTE | 2018-04-05 16:26 | PN ---
Progress Note, Physician History of Present Illness: POD #8 R frontal craniotomy, debridement/ abscess drainage, removal of Ommaya catheter Awake, alert, oriented No c/o pain Afebrile WBC WNL Ommaya catheter c/s P. acnes - Current Medication List Current Medications: Active Medications Acetaminophen (Tylenol -) 650 mg PO Q6H PRN PRN Reason: TEMP > 100 Last Admin: 04/03/18 08:56 Dose: 650 mg Ascorbic Acid (Vitamin C -) 250 mg PO DAILY [facility] Last Admin: 04/05/18 10:41 Dose: 250 mg Budesonide/Formoterol Fumarate (Symbicort 160/4.5mcg -) 1 puff IH BID [facility] Last Admin: 04/05/18 10:41 Dose: 1 puff Digoxin (Lanoxin -) 0.25 mg PO DAILY [facility] Last Admin: 04/05/18 10:38 Dose: 0.25 mg Docusate Sodium (Colace -) 100 mg PO TID [facility] Last Admin: 04/05/18 06:25 Dose: Not Given Ferrous Sulfate (Feosol -) 325 mg PO BID [facility] Last Admin: 04/05/18 10:40 Dose: 325 mg Gabapentin (Neurontin -) 600 mg PO TID [facility] Last Admin: 04/05/18 14:33 Dose: 600 mg Heparin Sodium (Porcine) (Heparin -) 5,000 unit SQ TID [facility] Last Admin: 04/05/18 14:33 Dose: 5,000 unit Ampicillin Sodium 2 gm/ Sodium (Chloride) 100 mls @ 200 mls/hr IVPB Q4H-IV [facility] Last Admin: 04/05/18 14:35 Dose: Not Given Vancomycin HCl 1,000 mg/ (Sodium Chloride) 250 mls @ 200 mls/hr IVPB Q12H [facility]; Protocol Last Admin: 04/05/18 06:25 Dose: 200 mls/hr Insulin Aspart (Novolog Vial Sliding Scale -) 1 vial SQ ACHS [facility]; Protocol Last Admin: 04/05/18 11:44 Dose: 3 units Insulin Detemir (Levemir Vial) 7 units SQ 0700 [facility] Last Admin: 04/05/18 06:34 Dose: 7 units Lactobacillus Acidophilus (Bacid -) 1 tab PO DAILY [facility] Last Admin: 04/05/18 10:40 Dose: 1 tab Metoprolol Succinate (Toprol Xl -) 50 mg PO HS [facility] Last Admin: 04/04/18 21:37 Dose: 50 mg Metoprolol Succinate (Toprol Xl -) 100 mg PO DAILY@0700 [facility] Last Admin: 04/05/18 06:25 Dose: 100 mg Non-Formulary Medication (Levalbuterol Tartrate [Xopenex Hfa]) 15 gm IH Q4H PRN PRN Reason: SHORTNESS OF BREATH Ondansetron HCl (Zofran Injection) 4 mg IVPUSH Q6H PRN PRN Reason: NAUSEA Pantoprazole Sodium (Protonix -) 40 mg PO DAILY [facility] Last Admin: 04/05/18 10:40 Dose: 40 mg Prednisone (Deltasone -) 5 mg PO DAILY [facility] Last Admin: 04/05/18 10:40 Dose: 5 mg Prednisone (Deltasone -) 2.5 mg PO HS [facility] Last Admin: 04/04/18 21:37 Dose: 2.5 mg - Objective Vital Signs: Vital Signs Temperature 99.4 F 04/05/18 14:33 Pulse Rate 19 L 04/05/18 14:33 Respiratory Rate 18 04/05/18 14:33 Blood Pressure 128/78 04/05/18 14:33 O2 Sat by Pulse Oximetry (%) 96 04/04/18 21:00 Constitutional: Yes: No Distress HENT: Yes: Other (craniotomy wound no erythema/ drainage) Cardiovascular: Yes: Regular Rate and Rhythm, S1, S2 Respiratory: Yes: CTA Bilaterally Gastrointestinal: Yes: Normal Bowel Sounds, Soft. No: Tenderness Labs: CBC, BMP 04/05/18 06:31 04/05/18 06:31 INR, PTT INR 1.18 (0.83-1.09) H 03/28/18 07:10 Assessment/Plan POD #8 R frontal craniotomy/ debridement/ abscess drainage/ removal of Ommaya + catheter c/s P. acnes Stage IV melanoma Solitary kidney Continue ampicillin / vancomycin For PICC, outpatient antibiotics ( ceftriaxone 2gm IVPB q12h x 7d)
[2018-04-05] MEDS ORDERED: PT OWN MED DRAWER 7, Y5N ONE (16:31)
--- NOTE | 2018-04-05 16:34 | PN ---
Teaching Attending Note Name of Resident: Dileep Valenzuela ATTENDING PHYSICIAN STATEMENT I saw and evaluated the patient. I reviewed the resident's note and discussed the case with the resident. I agree with the resident's findings and plan as documented. SUBJECTIVE: Patient is comfortable with no acute distress. patient is feeling weak. No fever overnight. OBJECTIVE: CBCD WBC 8.7 K/mm3 (4.0-10.0) 04/05/18 06:31 RBC 3.03 M/mm3 (4.00-5.60) L 04/05/18 06:31 Hgb 10.0 GM/dL (11.7-16.9) L 04/05/18 06:31 Hct 29.5 % (35.4-49) L 04/05/18 06:31 MCV 97.2 fl (80-96) H 04/05/18 06:31 MCHC 33.9 g/dl (32.0-35.9) 04/05/18 06:31 RDW 17.7 % (11.9-15.9) H 04/05/18 06:31 Plt Count 274 K/MM3 (134-434) 04/05/18 06:31 MPV 7.7 fl (7.5-11.1) 04/05/18 06:31 GENERAL: The patient is awake, alert, and fully oriented, in no acute distress. HEAD: S/P craniotomy. scar visualized. No active draining. EYES: PERRLA, extraocular movements intact b/l. Sclera anicteric, conjunctiva clear. ENT: Oropharynx clear without exudates or lesions. Moist mucous membranes. NECK: Trachea midline, Supple without lymphadenopathy. LUNGS: CTA BL ood inspiratory effort. Breath sounds equal, clear to auscultation bilaterally. CVS: RRR, S1, S2 auscultated without murmur appreciated. ABDOMEN: Soft, nontender, nondistended. Normoactive bowel sounds x4 quadrants. No hepatosplenomegaly appreciated.. EXTREMITIES: 2+ radial and dorsalis pedis pulses. Warm. No lower extremity edema b/l. NEUROLOGICAL: Cranial nerves II through XII grossly intact. PSYCH: Mood and affect appropriate CMP Sodium 142 mmol/L (136-145) 04/05/18 06:31 Potassium 4.0 mmol/L (3.5-5.1) 04/05/18 06:31 Chloride 104 mmol/L (98-107) 04/05/18 06:31 Carbon Dioxide 27 mmol/L (21-32) 04/05/18 06:31 Anion Gap 11 MMOL/L (8-16) 04/05/18 06:31 BUN 12 mg/dL (7-18) 04/05/18 06:31 Creatinine 0.6 mg/dL (0.55-1.3) 04/05/18 06:31 Creat Clearance w eGFR > 60 (>60) 04/05/18 06:31 Random Glucose 180 mg/dL (74-106) H 04/05/18 06:31 Calcium 8.2 mg/dL (8.5-10.1) L 04/05/18 06:31 Total Bilirubin 0.5 mg/dL (0.2-1) 04/05/18 06:31 AST 22 U/L (15-37) 04/05/18 06:31 ALT 34 U/L (13-61) 04/05/18 06:31 Alkaline Phosphatase 74 U/L (45-117) 04/05/18 06:31 Total Protein 5.2 g/dl (6.4-8.2) L 04/05/18 06:31 Albumin 2.2 g/dl (3.4-5.0) L 04/05/18 06:31 CARDIAC ENZYMES Troponin I < 0.02 ng/ml (0.00-0.05) 03/27/18 15:23 Current Medications Generic Name Dose Route Start Last Admin Trade Name Freq PRN Reason Stop Dose Admin Acetaminophen 650 mg 03/31/18 16:28 04/03/18 08:56 Tylenol - PO 650 mg Q6H PRN Administration TEMP > 100 Ascorbic Acid 250 mg 03/31/18 10:00 04/05/18 10:41 Vitamin C - PO 250 mg DAILY [facility] Administration Budesonide/Formoterol Fumarate 1 puff 03/30/18 22:00 04/05/18 10:41 Symbicort 160/4.5mcg - IH 1 puff BID [facility] Administration Digoxin 0.25 mg 03/31/18 10:00 04/05/18 10:38 Lanoxin - PO 0.25 mg DAILY [facility] Administration Docusate Sodium 100 mg 03/30/18 22:00 04/05/18 16:24 Colace - PO Not Given TID [facility] Ferrous Sulfate 325 mg 03/30/18 22:00 04/05/18 10:40 Feosol - PO 325 mg BID [facility] Administration Gabapentin 600 mg 03/30/18 22:00 04/05/18 14:33 Neurontin - PO 600 mg TID [facility] Administration Heparin Sodium (Porcine) 5,000 unit 03/30/18 22:00 04/05/18 14:33 Heparin - SQ 5,000 unit TID [facility] Administration Ampicillin Sodium 2 gm/ Sodium 100 mls @ 200 mls/hr 03/30/18 18:00 04/05/18 14:35 Chloride IVPB Not Given Q4H-IV [facility] Vancomycin HCl 1,000 mg/ 250 mls @ 200 mls/hr 04/03/18 18:15 04/05/18 06:25 Sodium Chloride IVPB 200 mls/hr Q12H [facility] Administration Protocol Insulin Aspart 1 vial 03/30/18 14:09 04/05/18 11:44 Novolog Vial Sliding Scale - SQ 3 units ACHS [facility] Administration Protocol Insulin Detemir 7 units 04/02/18 17:52 04/05/18 06:34 Levemir Vial SQ 7 units 0700 [facility] Administration Lactobacillus Acidophilus 1 tab 03/31/18 10:00 04/05/18 10:40 Bacid - PO 1 tab DAILY [facility] Administration Metoprolol Succinate 50 mg 03/30/18 22:00 04/04/18 21:37 Toprol Xl - PO 50 mg HS [facility] Administration Metoprolol Succinate 100 mg 03/31/18 07:00 04/05/18 06:25 Toprol Xl - PO 100 mg DAILY@0700 [facility] Administration Non-Formulary Medication 15 gm 03/30/18 16:53 Levalbuterol Tartrate [Xopenex Hfa] IH Q4H PRN SHORTNESS OF BREATH Ondansetron HCl 4 mg 03/30/18 16:53 Zofran Injection IVPUSH Q6H PRN NAUSEA Pantoprazole Sodium 40 mg 04/01/18 10:00 04/05/18 10:40 Protonix - PO 40 mg DAILY [facility] Administration Prednisone 5 mg 04/02/18 10:00 04/05/18 10:40 Deltasone - PO 5 mg DAILY [facility] Administration Prednisone 2.5 mg 04/01/18 22:00 09/26/18 21:37 Deltasone - PO 2.5 mg HS [facility] Administration Home Medications Medication Instructions Recorded Budesonide/Formoterol Fumarate 1 ih IH BID 11/08/11 [Symbicort 160-4.5 Mcg Inhaler] Metformin HCl [Metformin HCl ER] 500 mg PO BID 12/09/15 Metoprolol Succinate [Toprol XL -] 50 mg PO HS 12/09/15 Ascorbic Acid [Vitamin C -] 100 mg PO DAILY 04/09/16 Ferrous Sulfate [Feosol] 325 mg PO BID 04/09/16 Gabapentin [Neurontin] 600 mg PO TID 04/09/16 Metoprolol Succinate [Toprol XL -] 100 mg PO AM 04/09/16 Digoxin [Lanoxin -] 0.25 mg PO DAILY #30 tablet 04/12/16 Pantoprazole Sodium [Protonix -] 40 mg PO DAILY 10/18/16 Prednisone 5 mg PO AM 10/18/16 Repaglinide [Prandin -] 1 mg PO DAILY 10/18/16 predniSONE [Deltasone -] 2.5 mg PO HS 10/18/16 Levalbuterol Tartrate [Xopenex Hfa] 15 gm IH PRN 02/15/18 ASSESSMENT AND PLAN: Patient is a 62 year-old man with a PMHx of metastatic melanoma , HTN, afib, NIDDM, adrenal insufficiency, COPD, HLP, nephrectomy, metastatic melanoma s/p craniotomy 5 years ago, s/p re-do craniotomy 01/24 for fluid collection, and Ommaya cath placement, T7-8 disc herniation s/p spinal sx in 02/24 , who presented with fever and purulent drainage from scalp incision site. He was found to have Right frontal collection. # Right frontal abscess: s/p craniotomy by Dr.Tom Simmons s/p debridement and drainage. on IV Abx , vanco, flagyl and ampicillin will continue, ID on the case vanco trough goal is 15-20, follow the level. # H/o A fib: cont. home dig and toprol, dig level noted # H/o adrenal insufficiency: cont. home dose Prednisone 5mg in am and 2.5mg in HS # DM : cont levemir 7U,and SSI . # h/o metastatic melanoma: outpt follow up Heparin sq
[2018-04-05] MEDS: ACETAMINOPHEN 325 MG TABLET (FP) PO PRN (18:13)
--- NOTE | 2018-04-05 22:13 | PN ---
Progress Note, Physician Chief Complaint: PT A&Ox3; no chest pain or dyspnea; slightly more strength in legs, but still weak History of Present Illness: 62 yr old white man with PMHx melanoma, s/p craniotomy 12/2017, thoracic vetebral surgery 01/2018, PAF, HTN, DM, now admitted with fever and weakness. Pt had been undergoing physical therapy at home, but felt too weak to continue. - Current Medication List Current Medications: Active Medications Acetaminophen (Tylenol -) 650 mg PO Q6H PRN PRN Reason: TEMP > 100 Last Admin: 04/05/18 18:13 Dose: 650 mg Ascorbic Acid (Vitamin C -) 250 mg PO DAILY [facility] Last Admin: 04/05/18 10:41 Dose: 250 mg Budesonide/Formoterol Fumarate (Symbicort 160/4.5mcg -) 1 puff IH BID [facility] Last Admin: 04/05/18 21:59 Dose: 1 puff Digoxin (Lanoxin -) 0.25 mg PO DAILY [facility] Last Admin: 04/05/18 10:38 Dose: 0.25 mg Docusate Sodium (Colace -) 100 mg PO TID [facility] Last Admin: 04/05/18 21:59 Dose: Not Given Ferrous Sulfate (Feosol -) 325 mg PO BID [facility] Last Admin: 04/05/18 21:59 Dose: 325 mg Gabapentin (Neurontin -) 600 mg PO TID [facility] Last Admin: 04/05/18 21:59 Dose: 600 mg Heparin Sodium (Porcine) (Heparin -) 5,000 unit SQ TID [facility] Last Admin: 04/05/18 22:00 Dose: 5,000 unit Ampicillin Sodium 2 gm/ Sodium (Chloride) 100 mls @ 200 mls/hr IVPB Q4H-IV [facility] Last Admin: 04/05/18 21:58 Dose: 200 mls/hr Vancomycin HCl 1,000 mg/ (Sodium Chloride) 250 mls @ 200 mls/hr IVPB Q12H [facility]; Protocol Last Admin: 04/05/18 17:14 Dose: 200 mls/hr Insulin Aspart (Novolog Vial Sliding Scale -) 1 vial SQ ACHS [facility]; Protocol Last Admin: 04/05/18 22:03 Dose: 5 units Insulin Detemir (Levemir Vial) 7 units SQ 0700 [facility] Last Admin: 04/05/18 06:34 Dose: 7 units Lactobacillus Acidophilus (Bacid -) 1 tab PO DAILY [facility] Last Admin: 04/05/18 10:40 Dose: 1 tab Metoprolol Succinate (Toprol Xl -) 50 mg PO HS [facility] Last Admin: 04/05/18 22:00 Dose: 50 mg Metoprolol Succinate (Toprol Xl -) 100 mg PO DAILY@0700 [facility] Last Admin: 04/05/18 06:25 Dose: 100 mg Non-Formulary Medication (Levalbuterol Tartrate [Xopenex Hfa]) 15 gm IH Q4H PRN PRN Reason: SHORTNESS OF BREATH Ondansetron HCl (Zofran Injection) 4 mg IVPUSH Q6H PRN PRN Reason: NAUSEA Pantoprazole Sodium (Protonix -) 40 mg PO DAILY [facility] Last Admin: 04/05/18 10:40 Dose: 40 mg Prednisone (Deltasone -) 5 mg PO DAILY [facility] Last Admin: 04/05/18 10:40 Dose: 5 mg Prednisone (Deltasone -) 2.5 mg PO [facility] Last Admin: 04/05/18 22:00 Dose: 2.5 mg - Objective Vital Signs: Vital Signs Temperature 99.5 F 04/05/18 17:04 Pulse Rate 85 04/05/18 17:04 Respiratory Rate 20 04/05/18 17:04 Blood Pressure 138/71 04/05/18 17:04 O2 Sat by Pulse Oximetry (%) 96 04/04/18 21:00 Constitutional: Yes: Calm Eyes: Yes: WNL HENT: Yes: Other (s/p craniotomy) Neck: Yes: Decreased ROM Cardiovascular: Yes: S1, S2 Respiratory: Yes: Regular Gastrointestinal: Yes: Soft ...Rectal Exam: Yes: Deferred Genitourinary: No: Anuria Musculoskeletal: Yes: Back Pain, Joint Stiffness, Muscle Weakness Extremities: Yes: Cool Edema: No Peripheral Pulses WNL: Yes Integumentary: Yes: Incision Wound/Incision: Yes: Dressing Dry and Intact Neurological: Yes: Alert, Oriented, Weakness Psychiatric: Yes: Alert, Oriented Labs: CBC, BMP 04/05/18 06:31 04/05/18 06:31 INR, PTT INR 1.18 (0.83-1.09) H 03/28/18 07:10 Abnormal Lab Results 04/05/18 04/05/18 06:31 06:31 RBC 3.03 L Hgb 10.0 L Hct 29.5 L MCV 97.2 H RDW 17.7 H Random Glucose 180 H Calcium 8.2 L Total Protein 5.2 L Albumin 2.2 L Problem List - Problems (1) Sepsis Assessment/Plan: since 99.9 temp early am yesterday, pt has been afebrile. S/p craniotomy, ID; Omayya grew culture + for P. acne IV antibiotics per ID (PICC due to need for extended IV Rx). Code(s): A41.9 - SEPSIS, UNSPECIFIED ORGANISM Qualifiers: Sepsis type: puerperal sepsis Qualified Code(s): O85 - Puerperal sepsis (2) Anemia Code(s): D64.9 - ANEMIA, UNSPECIFIED Qualifiers: Anemia type: unspecified type Qualified Code(s): D64.9 - Anemia, unspecified (3) Atrial fibrillation Assessment/Plan: Now on metoprolol ER 50 mg daily. On digoxin; reduce dose to 0.125 mg daily; keep level 0.5-1.0; (also on metoprolol for HR control; LVEF WNL; review continuing need for digoxin). Not on anticoagulant (?due to prior GI bleed); review feasibility of starting warfarin or NOAC. Normal LVEF; mild-moderate LA size;mild MR and TR by 2015 ECHO. Code(s): I48.91 - UNSPECIFIED ATRIAL FIBRILLATION Qualifiers: Atrial fibrillation type: unspecified Qualified Code(s): I48.91 - Unspecified atrial fibrillation (4) COPD (chronic obstructive pulmonary disease) Code(s): J44.9 - CHRONIC OBSTRUCTIVE PULMONARY DISEASE, UNSPECIFIED (5) Melanoma Assessment/Plan: post-craniotomy. MRI: likely abscess, subdural empyema. Stage IV melanoma. s/p craniotomy; debridement; Omayya removal. Code(s): C43.9 - MALIGNANT MELANOMA OF SKIN, UNSPECIFIED (6) Weakness Code(s): R53.1 - WEAKNESS (7) Diastolic CHF Assessment/Plan: on metoprolol,digoxin (review continuing need fot the latter). Furosemide prn. F/u echo for LVEF. F/u BUN/Cr, electrolytes, Is and Os, daily weight. F/u BNP. Code(s): I50.30 - UNSPECIFIED DIASTOLIC (CONGESTIVE) HEART FAILURE
[2018-04-05] MEDS ORDERED: ALBUTEROL SO4 8 GM HFA INHALER IH PRN (22:25)
[2018-04-06] MEDS: AMPICILLIN - 2 GM in SODIUM CHLORIDE 100 ML IVPB SCH ×6 (01:25→21:20)
[2018-04-06] MEDS ORDERED: PT OWN MED DRAWER 7, Y5N ONE ×4 (05:58→19:07)
[2018-04-06] MEDS: GABAPENTIN 300 MG CAPSULE (FP) PO SCH ×3 (06:02→21:20)
[2018-04-06] MEDS: DOCUSATE SODIUM 100 MG CAPSULE (FP) PO SCH ×3 (06:03→21:21)
[2018-04-06] MEDS: HEPARIN NA (PORCINE) 5,000 UNITS/ML 1ML VIAL SQ SCH ×3 (06:03→21:27)
[2018-04-06] MEDS: INSULIN SLIDING SCALE (NOVOLOG) 1 VIAL SQ SCH ×4 (06:20→21:26)
[2018-04-06] MEDS: INSULIN (LEVEMIR) 100 UNITS/ML UNITS SQ SCH (06:20)
[2018-04-06] MEDS: VANCOMYCIN 1,000 MG in SODIUM CHLORIDE 250 ML IVPB SCH ×2 (06:21→19:35)
--- NOTE | 2018-04-06 08:03 | PN ---
Progress Note (short form) - Note Progress Note: NEUROSURGERY POD #9 On 8W No H/A, No N/V, no sz tolerating diet well Walked to nursing station yesterday PE: Tmax 99.5, VSS Incision C/D/I General- unremarkable, in good spirit CN- nonfocal; motor- L LE 4+-5/5 catheter tip and cavity fluid- proprionobacter, sensitivity pending C diff pending Brain abscess: s/p craniectomy, debridement, Ommaya reservoir removal Stable neurologically Cont iv abx- on amp/vanco per ID Await sensitivity OOB/mobilize/PT Incentive spirometry DVT prophylaxis Consider removing half of sutures today May discharge when afebrile and iv abx regimen/logistics finalized D/w Pt has vertical mattress sutures and may be difficult to remove
[2018-04-06 08:48] LABS: HEMATOCRIT 33.9 % (35.4-49); HEMOGLOBIN 11.2 GM/dL (11.7-16.9); MCH 32.5 pg (25.7-33.7); MEAN CELL VOLUME 98.4 fl (80-96); MEAN PLT VOLUME 7.6 fl (7.5-11.1); PLATELET COUNT 373 K/MM3 (134-434); RBC 3.45 M/mm3 (4.00-5.60); RDW 17.6 % (11.9-15.9); WHITE BLOOD COUNT 10.8 K/mm3 (4.0-10.0)
[2018-04-06 09:16] LABS: ALBUMIN 2.6 g/dl (3.4-5.0); ALK PHOS 82 U/L (45-117); ANION GAP 8 MMOL/L (8-16); BILIRUBIN,TOTAL 0.6 mg/dL (0.2-1); BLOOD UREA NITROGEN 11 mg/dL (7-18); CALCIUM 8.5 mg/dL (8.5-10.1); CHLORIDE 104 mmol/L (98-107); CO2 28 mmol/L (21-32); CREATININE 0.7 mg/dL (0.55-1.3); GLUCOSE,RANDOM 127 mg/dL (74-106); MAGNESIUM 1.9 mg/dL (1.8-2.4); PHOSPHOROUS 2.6 mg/dL (2.5-4.9); POTASSIUM 3.8 mmol/L (3.5-5.1); SGOT/AST 25 U/L (15-37); SGPT/ALT 38 U/L (13-61); SODIUM 140 mmol/L (136-145); TOT PROT 5.9 g/dl (6.4-8.2)
--- NOTE | 2018-04-06 09:51 | PN ---
Progress Note, Physician Chief Complaint: PT A&Ox3; wants to regain strength and walk more; no chest pain or dyspnea. History of Present Illness: 62 yr old white man with PMHx melanoma, s/p craniotomy 12/2017, thoracic vetebral surgery 01/2018, PAF, HTN, DM, now admitted with fever and weakness. Pt had been undergoing physical therapy at home, but felt too weak to continue. - Current Medication List Current Medications: Active Medications Acetaminophen (Tylenol -) 650 mg PO Q6H PRN PRN Reason: TEMP > 100 Last Admin: 04/05/18 18:13 Dose: 650 mg Albuterol Sulfate (Ventolin Hfa Inhaler -) 2 puff IH Q4H PRN PRN Reason: SHORTNESS OF BREATH Ascorbic Acid (Vitamin C -) 250 mg PO DAILY [facility] Last Admin: 04/05/18 10:41 Dose: 250 mg Budesonide/Formoterol Fumarate (Symbicort 160/4.5mcg -) 1 puff IH BID [facility] Last Admin: 04/05/18 21:59 Dose: 1 puff Digoxin (Lanoxin -) 0.125 mg PO DAILY [facility] Docusate Sodium (Colace -) 100 mg PO TID [facility] Last Admin: 04/06/18 06:03 Dose: Not Given Ferrous Sulfate (Feosol -) 325 mg PO BID [facility] Last Admin: 04/05/18 21:59 Dose: 325 mg Gabapentin (Neurontin -) 600 mg PO TID [facility] Last Admin: 04/06/18 06:02 Dose: 600 mg Heparin Sodium (Porcine) (Heparin -) 5,000 unit SQ TID [facility] Last Admin: 04/06/18 06:03 Dose: 5,000 unit Ampicillin Sodium 2 gm/ Sodium (Chloride) 100 mls @ 200 mls/hr IVPB Q4H-IV [facility] Last Admin: 04/06/18 05:59 Dose: 200 mls/hr Vancomycin HCl 1,000 mg/ (Sodium Chloride) 250 mls @ 200 mls/hr IVPB Q12H [facility]; Protocol Last Admin: 04/06/18 06:21 Dose: 200 mls/hr Insulin Aspart (Novolog Vial Sliding Scale -) 1 vial SQ ACHS [facility]; Protocol Last Admin: 04/06/18 06:20 Dose: 3 units Insulin Detemir (Levemir Vial) 7 units SQ 0700 [facility] Last Admin: 04/06/18 06:20 Dose: 7 units Lactobacillus Acidophilus (Bacid -) 1 tab PO DAILY [facility] Last Admin: 04/05/18 10:40 Dose: 1 tab Metoprolol Succinate (Toprol Xl -) 50 mg PO HS [facility] Last Admin: 04/05/18 22:00 Dose: 50 mg Metoprolol Succinate (Toprol Xl -) 100 mg PO DAILY@0700 [facility] Last Admin: 04/06/18 06:36 Dose: 100 mg Ondansetron HCl (Zofran Injection) 4 mg IVPUSH Q6H PRN PRN Reason: NAUSEA Pantoprazole Sodium (Protonix -) 40 mg PO DAILY [facility] Last Admin: 04/05/18 10:40 Dose: 40 mg Prednisone (Deltasone -) 5 mg PO DAILY [facility] Last Admin: 04/05/18 10:40 Dose: 5 mg Prednisone (Deltasone -) 2.5 mg PO [facility] Last Admin: 04/05/18 22:00 Dose: 2.5 mg - Objective Vital Signs: Vital Signs Temperature 98.7 F 04/06/18 06:00 Pulse Rate 82 04/06/18 06:00 Respiratory Rate 20 04/06/18 06:00 Blood Pressure 133/70 04/06/18 06:00 O2 Sat by Pulse Oximetry (%) 97 04/05/18 21:00 Constitutional: Yes: Calm Eyes: Yes: WNL HENT: Yes: Other (s/p craniotomy) Neck: Yes: WNL Cardiovascular: Yes: Regular Rate and Rhythm Respiratory: Yes: WNL Gastrointestinal: Yes: Soft ...Rectal Exam: Yes: Deferred Genitourinary: No: Anuria Musculoskeletal: Yes: Joint Stiffness, Muscle Weakness Extremities: Yes: Cool Edema: No Peripheral Pulses WNL: Yes Integumentary: Yes: Other (surgical scars (vertical, central back from thoracic vertebral surgery; left knee-->thigh from 2 knee/melanoma surgeries; s/p craniotomy "redo")) Psychiatric: Yes: Alert, Oriented Labs: CBC, BMP 04/06/18 08:30 04/06/18 08:30 INR, PTT INR 1.18 (0.83-1.09) H 03/28/18 07:10 Abnormal Lab Results 04/06/18 04/07/1818 17:30 06:21 06:21 RBC 3.22 L Hgb 10.5 L Hct 31.6 L MCV 98.2 H RDW 18.0 H Random Glucose 208 H Total Protein 5.7 L Albumin 2.5 L Vancomycin Pre-Dose 15.7 L Problem List - Problems (1) Sepsis Assessment/Plan: , pt has been afebrile since 04/03/18. S/p craniotomy, ID; Omayya grew culture + for P. acne IV antibiotics per ID (PICC due to need for extended IV Rx). Code(s): A41.9 - SEPSIS, UNSPECIFIED ORGANISM Qualifiers: Sepsis type: puerperal sepsis Qualified Code(s): O85 - Puerperal sepsis (2) Anemia Code(s): D64.9 - ANEMIA, UNSPECIFIED Qualifiers: Anemia type: unspecified type Qualified Code(s): D64.9 - Anemia, unspecified (3) Atrial fibrillation Assessment/Plan: Now on metoprolol ER 50 mg daily. EKG: NSR; APCs. On digoxin; reduce dose to 0.125 mg daily; keep level 0.5-1.0; (also on metoprolol for HR control; LVEF WNL; review continuing need for digoxin). Not on anticoagulant (?due to prior GI bleed); review feasibility of starting warfarin or NOAC. Normal LVEF; mild-moderate LA size;mild MR and TR by 2015 ECHO. Code(s): I48.91 - UNSPECIFIED ATRIAL FIBRILLATION Qualifiers: Atrial fibrillation type: unspecified Qualified Code(s): I48.91 - Unspecified atrial fibrillation (4) COPD (chronic obstructive pulmonary disease) Code(s): J44.9 - CHRONIC OBSTRUCTIVE PULMONARY DISEASE, UNSPECIFIED (5) Melanoma Assessment/Plan: post-craniotomy. MRI: likely abscess, subdural empyema. Stage IV melanoma. s/p craniotomy; debridement; Omayya removal. Code(s): C43.9 - MALIGNANT MELANOMA OF SKIN, UNSPECIFIED (6) Weakness Code(s): R53.1 - WEAKNESS (7) Diastolic CHF Assessment/Plan: on metoprolol,digoxin (review continuing need fot the latter). Furosemide prn. F/u echo for LVEF. F/u BUN/Cr, electrolytes, Is and Os, daily weight. F/u BNP. Code(s): I50.30 - UNSPECIFIED DIASTOLIC (CONGESTIVE) HEART FAILURE
[2018-04-06] MEDS: LACTOBACILLUS ACIDOPHILUS 1 TABLET PO SCH (10:55)
[2018-04-06] MEDS: DIGOXIN 0.125 MG TABLET (FP) PO SCH (10:55)
[2018-04-06] MEDS: FERROUS SO4 325 MG TABLET (FP) PO SCH ×2 (10:55→21:20)
[2018-04-06] MEDS: PANTOPRAZOLE 40 MG TABLET (FP) PO SCH (10:55)
[2018-04-06] MEDS: ASCORBIC ACID 500 MG TABLET (FP) PO SCH (10:55)
[2018-04-06] MEDS: predniSONE 5 MG TABLET (UD) PO SCH ×2 (10:55→21:21)
[2018-04-06] MEDS: BUDESONIDE/FORMETEROL FUMARATE 160/4.5 mcg INHALER IH SCH ×2 (10:56→21:31)
--- NOTE | 2018-04-06 13:42 | PN ---
Physical Exam: SUBJECTIVE: Patient seen and examined at bedside this morning. He is POD #9 s/p craniotomy, abscess debridement, and Ommaya catheter removal. Admits continued improvement with tremor in the left hand, diminishing in intensity and frequency. Tmax 98.7F today morning. Patient denies headache, double vision, dizziness, chills, shortness of breath, chest pain, palpitations, abdominal pain , nausea vomiting, diarrhea, constipation, melena, hematochezia, dysuria, hematuria. Patient expresses desire to go home, however his has concern that he is not strong enough to return home, and she is not able to fully care for him. She has listed her preferences for SNF, now awaiting placement. OBJECTIVE: Vital Signs Period Temp Pulse Resp BP Sys/Betancourt Pulse Ox Last 24 Hr 98.7 F-99.5 F 19-88 18-20 128-138/70-78 97 GENERAL: The patient is awake, alert, and fully oriented, in no acute distress. HEAD: S/P craniotomy. Scar visualized, clean sutures. No active draining. EYES: PERRLA, extraocular movements intact b/l. No nystagmus b/l. Sclera anicteric, conjunctiva clear. ENT: Oropharynx clear without exudates or lesions. Moist mucous membranes. NECK: Trachea midline, Supple without lymphadenopathy. LUNGS: Good inspiratory effort. Breath sounds equal, clear to auscultation bilaterally. No wheezes. No accessory muscle use. HEART: Irregular rate and rhythm. S1, S2 auscultated without murmur appreciated. ABDOMEN: Soft, nontender, nondistended. Normoactive bowel sounds x4 quadrants. No guarding, no rebound. No hepatosplenomegaly appreciated.. EXTREMITIES: 2+ radial and dorsalis pedis pulses. Warm. No lower extremity edema b/l. NEUROLOGICAL: Cranial nerves II through XII grossly intact. Normal speech. Strength 5/5 b/l upper extremities in flexion, extension, abduciton, adduction. Tremor in left arm diminishing with strength testing against resistance. Biceps reflex 2+ b/l. Strength 5/5 right lower extremity in hip flexion, extension and knee flexion, extension. Patellar and Achilles tendon reflex 2+ b/l. 5/5 in left lower extremity hip flexion, extension and 4/5 knee flexion, extension. 1+ left patellar reflex, 2+ left Achilles tendon. Plantarflexion and dorsiflexion 5 /5 b/l. Sensation intact b/l upper and lower extremities. PSYCH: Mood and affect appropriate upon my encounter today. Laboratory Results - last 24 hr 04/05/18 04/05/18 04/05/18 17:14 22:02 22:26 WBC RBC Hgb Hct MCV MCH MCHC RDW Plt Count MPV Sodium Potassium Chloride Carbon Dioxide Anion Gap BUN Creatinine Creat Clearance w eGFR POC Glucometer 253 231 Random Glucose Calcium Phosphorus Magnesium Total Bilirubin AST ALT Alkaline Phosphatase B-Natriuretic Peptide 202.9 H Total Protein Albumin 04/06/18 04/06/18 04/06/18 06:02 08:30 08:30 WBC 10.8 H RBC 3.45 L Hgb 11.2 L Hct 33.9 L MCV 98.4 H MCH 32.5 MCHC 33.0 RDW 17.6 H Plt Count 373 D MPV 7.6 Sodium 140 Potassium 3.8 Chloride 104 Carbon Dioxide 28 Anion Gap 8 BUN 11 Creatinine 0.7 Creat Clearance w eGFR > 60 POC Glucometer 172 Random Glucose 127 H Calcium 8.5 Phosphorus 2.6 Magnesium 1.9 Total Bilirubin 0.6 AST 25 ALT 38 Alkaline Phosphatase 82 B-Natriuretic Peptide Total Protein 5.9 L Albumin 2.6 L 04/06/18 12:09 WBC RBC Hgb Hct MCV MCH MCHC RDW Plt Count MPV Sodium Potassium Chloride Carbon Dioxide Anion Gap BUN Creatinine Creat Clearance w eGFR POC Glucometer 210 Random Glucose Calcium Phosphorus Magnesium Total Bilirubin AST ALT Alkaline Phosphatase B-Natriuretic Peptide Total Protein Albumin Active Medications Generic Name Dose Route Start Last Admin Trade Name Madhu PRN Reason Stop Dose Admin Acetaminophen 650 mg 03/31/18 16:28 04/05/18 18:13 Tylenol - PO 650 mg Q6H PRN Administration TEMP > 100 Albuterol Sulfate 2 puff 04/05/18 22:25 Ventolin Hfa Inhaler - IH Q4H PRN SHORTNESS OF BREATH Ascorbic Acid 250 mg 03/31/18 10:00 04/06/18 10:55 Vitamin C - PO 250 mg DAILY [facility] Administration Budesonide/Formoterol Fumarate 1 puff 03/30/18 22:00 04/06/18 10:56 Symbicort 160/4.5mcg - IH 1 puff BID [facility] Administration Digoxin 0.125 mg 04/06/18 10:00 04/06/18 10:55 Lanoxin - PO 0.125 mg DAILY [facility] Administration Docusate Sodium 100 mg 03/30/18 22:00 04/06/18 06:03 Colace - PO Not Given TID [facility] Ferrous Sulfate 325 mg 03/30/18 22:00 04/06/18 10:55 Feosol - PO 325 mg BID [facility] Administration Gabapentin 600 mg 03/30/18 22:00 04/06/18 06:02 Neurontin - PO 600 mg TID [facility] Administration Heparin Sodium (Porcine) 5,000 unit 03/30/18 22:00 04/06/18 06:03 Heparin - SQ 5,000 unit TID [facility] Administration Ampicillin Sodium 2 gm/ Sodium 100 mls @ 200 mls/hr 03/30/18 18:00 04/06/18 11:01 Chloride IVPB 200 mls/hr Q4H-IV [facility] Administration Vancomycin HCl 1,000 mg/ 250 mls @ 200 mls/hr 04/03/18 18:15 04/06/18 06:21 Sodium Chloride IVPB 200 mls/hr Q12H [facility] Administration Protocol Insulin Aspart 1 vial 03/30/18 14:09 04/06/18 12:28 Novolog Vial Sliding Scale - SQ 5 units ACHS [facility] Administration Protocol Insulin Detemir 7 units 04/02/18 17:52 04/06/18 06:20 Levemir Vial SQ 7 units 0700 [facility] Administration Lactobacillus Acidophilus 1 tab 03/31/18 10:00 04/06/18 10:55 Bacid - PO 1 tab DAILY [facility] Administration Metoprolol Succinate 50 mg 03/30/18 22:00 04/05/18 22:00 Toprol Xl - PO 50 mg HS [facility] Administration Metoprolol Succinate 100 mg 03/31/18 07:00 04/06/18 06:36 Toprol Xl - PO 100 mg DAILY@0700 [facility] Administration Ondansetron HCl 4 mg 03/30/18 16:53 Zofran Injection IVPUSH Q6H PRN NAUSEA Pantoprazole Sodium 40 mg 04/01/18 10:00 04/06/18 10:55 Protonix - PO 40 mg DAILY [facility] Administration Prednisone 5 mg 04/02/18 10:00 04/06/18 10:55 Deltasone - PO 5 mg DAILY [facility] Administration Prednisone 2.5 mg 04/01/18 22:00 04/05/18 22:00 Deltasone - PO 2.5 mg HS [facility] Administration IMAGING: CT head: Nonspecific right frontal rim enhancing lesion 3.4 x 3.4 x 3.3 cm concerning for abscess vs. neoplastic disease. MRI head: Vasogenic edema of right frontal lobe. Findings suggestive of abscess with subdural empyema CT head (post-operative): Vasogenic edema right frontal lobe. No herniation, hydrocephalus. No acute ischemic changes. ASSESSMENT/PLAN: Patient is a 62 year old male with history of stage four melanoma (s/p recent revision of craniotomy in January d/t leaking cyst), Afib (not on anticoagulation) , HTN, DM, COPD, presents with complaint of yellow, sticky discharge from Ommaya catheter for approx. 10 days and new left lower extremity weakness. Brain abscess -Patient is POD #9 s/p craniotomy. -ID consult (Dr. Wilhelm) appreciated: Empiric coverage with Ampicillin 2gm IV Q4H , Vancomycin 1gram Q12H. -Bacid 1 tablet PO daily. -Wound cultures noted. -CSF cultures negative for growth -Blood cultures- negative for growth -Tylenol 650mg PO Q6H PRN for pain 1-5 -Dilaudid 0.5mg IV Q4H for pain 6-10 Fevers -Resolved. Tmax 99.0F this morning. Hypokalemia, hypophosphatemia -Resolved. -Will continue follow up CMP, Mg, Phos. Adrenal Insufficiency -Endocrinology (Dr. Martinez) consult appreciated. -Reinstate home dose Prednisone 5mg AM, 2.5mg HS. Afib -Not on anticoagulation d/t history of GI bleed, questionable diverticulitis in 2016 -Continue Metoprolol 100mg PO AM, 50mg PO HS -Continue Digoxin 0.25mg PO daily -Cardiac echo shows: LV size, thickness, wall motion, function normal. EF normal. Trace- mild MR, TR. HTN -Continue Metoprolol 100mg PO AM, 50mg PO HS DM -Levemir 7 units subq in the mornings -ISS -BGM ACHS FEN -Patient tolerating PO fluids. Encourage judicious hydration. -Follow CMP -Diabetic diet Prophylaxis -Heparin 5000units subq TID -Pantoprazole 40mg PO daily Disposition -Continue care in medical-surgical floor Visit type - Emergency Visit Emergency Visit: Yes ED Registration Date: 03/27/18 Care time: The patient presented to the Emergency Department on the above date and was hospitalized for further evaluation of their emergent condition. - New Patient This patient is new to me today: No - Critical Care Critical Care patient: No - Discharge Referral Referred to [facility] No
--- NOTE | 2018-04-06 13:48 | PN ---
Teaching Attending Note Name of Resident: Dileep Valenzuela ATTENDING PHYSICIAN STATEMENT I saw and evaluated the patient. I reviewed the resident's note and discussed the case with the resident. I agree with the resident's findings and plan as documented. SUBJECTIVE: Patient is better but feeling weak. Unable to ambulate. OBJECTIVE: Vital Signs Temperature 98.7 F 04/06/18 06:00 Pulse Rate 88 04/06/18 10:55 Respiratory Rate 20 04/06/18 06:00 Blood Pressure 133/70 04/06/18 06:00 O2 Sat by Pulse Oximetry (%) 97 04/05/18 21:00 GENERAL: The patient is awake, alert, and fully oriented, in no acute distress. HEAD: S/P craniotomy. scar visualized. No active draining. EYES: PERRLA, extraocular movements intact b/l. Sclera anicteric, conjunctiva clear. ENT: Oropharynx clear without exudates or lesions. Moist mucous membranes. NECK: Trachea midline, Supple without lymphadenopathy. LUNGS: CTA BL ood inspiratory effort. Breath sounds equal, clear to auscultation bilaterally. CVS: RRR, S1, S2 auscultated without murmur appreciated. ABDOMEN: Soft, nontender, nondistended. Normoactive bowel sounds x4 quadrants. No hepatosplenomegaly appreciated.. EXTREMITIES: 2+ radial and dorsalis pedis pulses. Warm. No lower extremity edema b/l. NEUROLOGICAL: Cranial nerves II through XII grossly intact. PSYCH: Mood and affect appropriate CBCD WBC 10.8 K/mm3 (4.0-10.0) H 04/06/18 08:30 RBC 3.45 M/mm3 (4.00-5.60) L 04/06/18 08:30 Hgb 11.2 GM/dL (11.7-16.9) L 04/06/18 08:30 Hct 33.9 % (35.4-49) L 04/06/18 08:30 MCV 98.4 fl (80-96) H 04/06/18 08:30 MCHC 33.0 g/dl (32.0-35.9) 04/06/18 08:30 RDW 17.6 % (11.9-15.9) H 04/06/18 08:30 Plt Count 373 K/MM3 (134-434) D 04/06/18 08:30 MPV 7.6 fl (7.5-11.1) 04/06/18 08:30 CMP Sodium 140 mmol/L (136-145) 04/06/18 08:30 Potassium 3.8 mmol/L (3.5-5.1) 04/06/18 08:30 Chloride 104 mmol/L (98-107) 04/06/18 08:30 Carbon Dioxide 28 mmol/L (21-32) 04/06/18 08:30 Anion Gap 8 MMOL/L (8-16) 04/06/18 08:30 BUN 11 mg/dL (7-18) 04/06/18 08:30 Creatinine 0.7 mg/dL (0.55-1.3) 04/06/18 08:30 Creat Clearance w eGFR > 60 (>60) 04/06/18 08:30 Random Glucose 127 mg/dL (74-106) H 04/06/18 08:30 Calcium 8.5 mg/dL (8.5-10.1) 04/06/18 08:30 Total Bilirubin 0.6 mg/dL (0.2-1) 04/06/18 08:30 AST 25 U/L (15-37) 04/06/18 08:30 ALT 38 U/L (13-61) 04/06/18 08:30 Alkaline Phosphatase 82 U/L (45-117) 04/06/18 08:30 Total Protein 5.9 g/dl (6.4-8.2) L 04/06/18 08:30 Albumin 2.6 g/dl (3.4-5.0) L 04/06/18 08:30 CARDIAC ENZYMES Troponin I < 0.02 ng/ml (0.00-0.05) 03/27/18 15:23 Current Medications Generic Name Dose Route Start Last Admin Trade Name Freq PRN Reason Stop Dose Admin Acetaminophen 650 mg 03/31/18 16:28 04/05/18 18:13 Tylenol - PO 650 mg Q6H PRN Administration TEMP > 100 Albuterol Sulfate 2 puff 04/05/18 22:25 Ventolin Hfa Inhaler - IH Q4H PRN SHORTNESS OF BREATH Ascorbic Acid 250 mg 03/31/18 10:00 04/06/18 10:55 Vitamin C - PO 250 mg DAILY [facility] Administration Budesonide/Formoterol Fumarate 1 puff 03/30/18 22:00 04/06/18 10:56 Symbicort 160/4.5mcg - IH 1 puff BID [facility] Administration Digoxin 0.125 mg 04/06/18 10:00 04/06/18 10:55 Lanoxin - PO 0.125 mg DAILY [facility] Administration Docusate Sodium 100 mg 03/30/18 22:00 04/06/18 06:03 Colace - PO Not Given TID [facility] Ferrous Sulfate 325 mg 03/30/18 22:00 04/06/18 10:55 Feosol - PO 325 mg BID [facility] Administration Gabapentin 600 mg 03/30/18 22:00 04/06/18 06:02 Neurontin - PO 600 mg TID [facility] Administration Heparin Sodium (Porcine) 5,000 unit 03/30/18 22:00 04/06/18 06:03 Heparin - SQ 5,000 unit TID [facility] Administration Ampicillin Sodium 2 gm/ Sodium 100 mls @ 200 mls/hr 03/30/18 18:00 04/06/18 11:01 Chloride IVPB 200 mls/hr Q4H-IV [facility] Administration Vancomycin HCl 1,000 mg/ 250 mls @ 200 mls/hr 04/03/18 18:15 04/06/18 06:21 Sodium Chloride IVPB 200 mls/hr Q12H [facility] Administration Protocol Insulin Aspart 1 vial 03/30/18 14:09 04/06/18 12:28 Novolog Vial Sliding Scale - SQ 5 units ACHS [facility] Administration Protocol Insulin Detemir 7 units 04/02/18 17:52 04/06/18 06:20 Levemir Vial SQ 7 units 0700 [facility] Administration Lactobacillus Acidophilus 1 tab 03/31/18 10:00 04/06/18 10:55 Bacid - PO 1 tab DAILY [facility] Administration Metoprolol Succinate 50 mg 03/30/18 22:00 04/05/18 22:00 Toprol Xl - PO 50 mg HS [facility] Administration Metoprolol Succinate 100 mg 03/31/18 07:00 04/06/18 06:36 Toprol Xl - PO 100 mg DAILY@0700 [facility] Administration Ondansetron HCl 4 mg 03/30/18 16:53 Zofran Injection IVPUSH Q6H PRN NAUSEA Pantoprazole Sodium 40 mg 04/01/18 10:00 04/06/18 10:55 Protonix - PO 40 mg DAILY [facility] Administration Prednisone 5 mg 04/02/18 10:00 04/06/18 10:55 Deltasone - PO 5 mg DAILY [facility] Administration Prednisone 2.5 mg 04/01/18 22:00 04/05/18 22:00 Deltasone - PO 2.5 mg HS [facility] Administration Home Medications Medication Instructions Recorded Budesonide/Formoterol Fumarate 1 ih IH BID 11/08/11 [Symbicort 160-4.5 Mcg Inhaler] Metformin HCl [Metformin HCl ER] 500 mg PO BID 12/09/15 Metoprolol Succinate [Toprol XL -] 50 mg PO HS 12/09/15 Ascorbic Acid [Vitamin C -] 100 mg PO DAILY 04/09/16 Ferrous Sulfate [Feosol] 325 mg PO BID 04/09/16 Gabapentin [Neurontin] 600 mg PO TID 04/09/16 Metoprolol Succinate [Toprol XL -] 100 mg PO AM 04/09/16 Digoxin [Lanoxin -] 0.25 mg PO DAILY #30 tablet 04/12/16 Pantoprazole Sodium [Protonix -] 40 mg PO DAILY 10/18/16 Prednisone 5 mg PO AM 10/18/16 Repaglinide [Prandin -] 1 mg PO DAILY 10/18/16 predniSONE [Deltasone -] 2.5 mg PO HS 10/18/16 Levalbuterol Tartrate [Xopenex Hfa] 15 gm IH PRN 02/15/18 ASSESSMENT AND PLAN: Patient is a 62 year-old man with a PMHx of metastatic melanoma , HTN, afib, NIDDM, adrenal insufficiency, COPD, HLP, nephrectomy, metastatic melanoma s/p craniotomy 5 years ago, s/p re-do craniotomy 01/24 for fluid collection, and Ommaya cath placement, T7-8 disc herniation s/p spinal sx in 02/24 , who presented with fever and purulent drainage from scalp incision site. He was found to have Right frontal collection. # Right frontal abscess: s/p craniotomy by Dr.Tom Simmons s/p debridement and drainage. on IV Abx , vanco, flagyl and ampicillin will continue, ID on the case vanco trough is 15.7 goal is 15-20, continue . # H/o A fib: cont. home dig and toprol, dig level noted # H/o adrenal insufficiency: cont. home dose Prednisone 5mg in am and 2.5mg in HS # DM : cont levemir 7U,and SSI . # h/o metastatic melanoma: outpt follow up Heparin sq waiting for rehab. placement after the sutures are removed by Dr.Tom Simmons.
--- NOTE | 2018-04-06 14:18 | ECHO ---
Version: 1 Name: BRANDON RECIO Exam: Adult Echocardiogram Study Date: 04/06/2018, 9:17 AM Age: 62 Years MMode/2D Measurements & Calculations IVSd: 0.77 cm LVIDs: 3.7 cm LVIDd: 5.0 cm LVPWd: 0.75 cm LA dimension: 3.8 cm Doppler Measurements & Calculations MV E max alberto: 54.8 cm/sec MV A max alberto: 61.2 cm/sec MV E/A: 0.90 TR max alberto: 152.9 cm/sec TR max P.4 mmHg Procedure A two-dimensional transthoracic echocardiogram with color flow and Doppler was performed. Left Ventricle The left ventricular size, thickness and function are normal. The left ventricular ejection fraction is normal. E/A reversal consistent with but not diagnostic of poor LV compliance. The left ventricular wall motion is normal. Right Ventricle The right ventricle is normal in size and function. Atria Normal left and right atrial size and function. Mitral Valve There is mild mitral valve thickening. There is no mitral valve stenosis. There is trace to mild vishal ral regurgitation. Tricuspid Valve There is mild tricuspid valve thickening. There is no tricuspid stenosis. There is Trace to mild tri cuspid regurgitation. Aortic Valve The aortic valve is normal in structure and function. No hemodynamically significant valvular aortic stenosis. No aortic regurgitation is present. Pulmonic Valve The pulmonic valve is not well visualized. There is no pulmonic valvular stenosis. There is no pulmo omaira valvular regurgitation. Great Vessels The aortic root is normal size. Pericardium/Pleura There is no pericardial effusion. Summary Statements The left ventricular size, thickness and function are normal The left ventricular ejection fraction is normal. The left ventricular wall motion is normal. There is trace to mild mitral regurgitation. There is Trace to mild tricuspid regurgitation. MD Jesus Patrick 04/06/2018, 2:18 PM Ordering Physician: Terence Grace Referring Physician: ORBY PEPPER Performed By: Keyanna Carney
--- NOTE | 2018-04-06 16:52 | PN ---
Progress Note (short form) - Note Progress Note: Pt seen for suture removal. Per attending everyother suture to be removed due to h/o radiation and recent infection. Incision line painted with Betadine before and after suture removal. Everyother suture removed without issue. Pt tolerated well. wound edges well fused, no evidence of dehiscence. No erythema or drainage from incision site. Plan to remove remainder of sutures next week.
[2018-04-06] MEDS ORDERED: INSULIN (NOVOLOG) ASPART 100 UNITS/ML 10ML VIAL ONE ×2 (19:07→21:25)
[2018-04-07] MEDS: AMPICILLIN - 2 GM in SODIUM CHLORIDE 100 ML IVPB SCH ×6 (01:17→23:21)
[2018-04-07] MEDS: DOCUSATE SODIUM 100 MG CAPSULE (FP) PO SCH ×3 (05:18→21:10)
[2018-04-07] MEDS: GABAPENTIN 300 MG CAPSULE (FP) PO SCH ×3 (05:21→21:10)
[2018-04-07] MEDS: HEPARIN NA (PORCINE) 5,000 UNITS/ML 1ML VIAL SQ SCH ×3 (05:58→21:11)
[2018-04-07] MEDS: VANCOMYCIN 1,000 MG in SODIUM CHLORIDE 250 ML IVPB SCH ×2 (06:20→18:12)
[2018-04-07] MEDS: INSULIN SLIDING SCALE (NOVOLOG) 1 VIAL SQ SCH ×4 (06:32→21:17)
[2018-04-07] MEDS: INSULIN (LEVEMIR) 100 UNITS/ML UNITS SQ SCH (06:32)
[2018-04-07 07:54] LABS: HEMATOCRIT 31.6 % (35.4-49); HEMOGLOBIN 10.5 GM/dL (11.7-16.9); MCH 32.6 pg (25.7-33.7); MCHC 33.2 g/dl (32.0-35.9); MEAN CELL VOLUME 98.2 fl (80-96); MEAN PLT VOLUME 8.1 fl (7.5-11.1); PLATELET COUNT 348 K/MM3 (134-434); RBC 3.22 M/mm3 (4.00-5.60)
[2018-04-07 08:47] LABS: ALBUMIN 2.5 g/dl (3.4-5.0); ALK PHOS 88 U/L (45-117); ANION GAP 10 MMOL/L (8-16); BILIRUBIN,TOTAL 0.5 mg/dL (0.2-1); BLOOD UREA NITROGEN 17 mg/dL (7-18); CHLORIDE 104 mmol/L (98-107); CO2 27 mmol/L (21-32); CREATININE 0.8 mg/dL (0.55-1.3); GLUCOSE,RANDOM 208 mg/dL (74-106); MAGNESIUM 1.9 mg/dL (1.8-2.4); PHOSPHOROUS 3.3 mg/dL (2.5-4.9); POTASSIUM 4.2 mmol/L (3.5-5.1); SGOT/AST 15 U/L (15-37); SGPT/ALT 35 U/L (13-61); SODIUM 141 mmol/L (136-145); TOT PROT 5.7 g/dl (6.4-8.2)
--- NOTE | 2018-04-07 09:22 | PN ---
Progress Note (short form) - Note Progress Note: NEUROSURGERY POD #10 No H/A, No N/V, no sz tolerating diet PE: Tmax 98.8, VSS Incision C/D/I, half of sutures removed yesterday General- unremarkable, in good spirit CN- nonfocal; motor- L LE 4+-5/5 WBC 10k catheter tip and cavity fluid- proprionobacter, sensitivity pending C diff negative Brain abscess: s/p craniectomy, debridement, Ommaya reservoir removal Stable neurologically Cont iv abx- on amp/vanco per ID Await sensitivity OOB/mobilize/PT DVT prophylaxis Consider removing remainder of sutures Monday D/w
[2018-04-07] MEDS ORDERED: PT OWN MED DRAWER 7, Y5N ONE ×3 (10:30→18:05)
[2018-04-07] MEDS: ASCORBIC ACID 500 MG TABLET (FP) PO SCH (10:32)
[2018-04-07] MEDS: PANTOPRAZOLE 40 MG TABLET (FP) PO SCH (10:32)
[2018-04-07] MEDS: FERROUS SO4 325 MG TABLET (FP) PO SCH ×2 (10:32→21:10)
[2018-04-07] MEDS: LACTOBACILLUS ACIDOPHILUS 1 TABLET PO SCH (10:32)
[2018-04-07] MEDS: predniSONE 5 MG TABLET (UD) PO SCH ×2 (10:34→21:10)
[2018-04-07] MEDS: DIGOXIN 0.125 MG TABLET (FP) PO SCH (10:34)
[2018-04-07] MEDS: BUDESONIDE/FORMETEROL FUMARATE 160/4.5 mcg INHALER IH SCH ×2 (10:35→21:15)
--- NOTE | 2018-04-07 12:17 | PN ---
Progress Note, Physician Chief Complaint: PT A&Ox3; wants to regain strength and walk more; no chest pain or dyspnea. Now has a sore throat, worse when he swallows. History of Present Illness: 62 yr old white man with PMHx melanoma, s/p craniotomy 12/2017, thoracic vetebral surgery 01/2018, PAF, HTN, DM, now admitted with fever and weakness. Pt had been undergoing physical therapy at home, but felt too weak to continue. - Current Medication List Current Medications: Active Medications Acetaminophen (Tylenol -) 650 mg PO Q6H PRN PRN Reason: TEMP > 100 Last Admin: 04/05/18 18:13 Dose: 650 mg Albuterol Sulfate (Ventolin Hfa Inhaler -) 2 puff IH Q4H PRN PRN Reason: SHORTNESS OF BREATH Ascorbic Acid (Vitamin C -) 250 mg PO DAILY [facility] Last Admin: 04/07/18 10:32 Dose: 250 mg Budesonide/Formoterol Fumarate (Symbicort 160/4.5mcg -) 1 puff IH BID [facility] Last Admin: 04/07/18 10:35 Dose: 1 puff Digoxin (Lanoxin -) 0.125 mg PO DAILY [facility] Last Admin: 04/07/18 10:34 Dose: 0.125 mg Docusate Sodium (Colace -) 100 mg PO TID [facility] Last Admin: 04/07/18 05:18 Dose: Not Given Ferrous Sulfate (Feosol -) 325 mg PO BID [facility] Last Admin: 04/07/18 10:32 Dose: 325 mg Gabapentin (Neurontin -) 600 mg PO TID [facility] Last Admin: 04/07/18 05:21 Dose: 600 mg Heparin Sodium (Porcine) (Heparin -) 5,000 unit SQ TID [facility] Last Admin: 04/07/18 05:58 Dose: 5,000 unit Ampicillin Sodium 2 gm/ Sodium (Chloride) 100 mls @ 200 mls/hr IVPB Q4H-IV [facility] Last Admin: 04/07/18 10:33 Dose: 200 mls/hr Vancomycin HCl 1,000 mg/ (Sodium Chloride) 250 mls @ 200 mls/hr IVPB Q12H [facility]; Protocol Last Admin: 04/07/18 06:20 Dose: 200 mls/hr Insulin Aspart (Novolog Vial Sliding Scale -) 1 vial SQ ACHS [facility]; Protocol Last Admin: 04/07/18 06:32 Dose: 5 units Insulin Detemir (Levemir Vial) 7 units SQ 0700 [facility] Last Admin: 04/07/18 06:32 Dose: 7 units Lactobacillus Acidophilus (Bacid -) 1 tab PO DAILY [facility] Last Admin: 04/07/18 10:32 Dose: 1 tab Metoprolol Succinate (Toprol Xl -) 50 mg PO [facility] Last Admin: 04/06/18 21:21 Dose: 50 mg Metoprolol Succinate (Toprol Xl -) 100 mg PO DAILY@0700 [facility] Last Admin: 04/07/18 06:05 Dose: 100 mg Ondansetron HCl (Zofran Injection) 4 mg IVPUSH Q6H PRN PRN Reason: NAUSEA Pantoprazole Sodium (Protonix -) 40 mg PO DAILY [facility] Last Admin: 04/07/18 10:32 Dose: 40 mg Prednisone (Deltasone -) 5 mg PO DAILY [facility] Last Admin: 04/07/18 10:34 Dose: 5 mg Prednisone (Deltasone -) 2.5 mg PO [facility] Last Admin: 04/06/18 21:21 Dose: 2.5 mg - Objective Vital Signs: Vital Signs Temperature 98.8 F 04/07/18 06:00 Pulse Rate 76 04/07/18 10:34 Respiratory Rate 20 04/07/18 06:00 Blood Pressure 117/67 04/07/18 06:00 O2 Sat by Pulse Oximetry (%) 97 04/06/18 21:00 Constitutional: Yes: Anxious Eyes: Yes: WNL HENT: Yes: Other Neck: Yes: WNL Cardiovascular: Yes: S1, S2, S4 Respiratory: Yes: Regular Gastrointestinal: Yes: Soft ...Rectal Exam: Yes: Deferred Genitourinary: No: Anuria Musculoskeletal: Yes: Joint Stiffness, Muscle Weakness Extremities: Yes: Cool Edema: No Peripheral Pulses WNL: Yes Integumentary: Yes: Other Wound/Incision: Yes: Clean/Dry (pt's head now shaved; craniotomy scars dry) Neurological: Yes: Unsteady Gait (pt has to walk with left leg straight due to prior surgeries; he says "I feel like a two-year child is holding onto my leg when I walk"), Weakness Psychiatric: Yes: Alert, Oriented Labs: CBC, BMP 04/07/18 06:21 04/07/18 06:21 INR, PTT INR 1.18 (0.83-1.09) H 03/28/18 07:10 Abnormal Lab Results 04/06/18 04/07/18 04/07/18 17:30 06:21 06:21 RBC 3.22 L Hgb 10.5 L Hct 31.6 L MCV 98.2 H RDW 18.0 H Random Glucose 208 H Total Protein 5.7 L Albumin 2.5 L Vancomycin Pre-Dose 15.7 L Problem List - Problems (1) Sepsis Assessment/Plan: , pt has been afebrile since 04/03/18; now with sore throat. S/p craniotomy, ID; Omayya grew culture + for P. acne IV antibiotics per ID (PICC due to need for extended IV Rx). Code(s): A41.9 - SEPSIS, UNSPECIFIED ORGANISM Qualifiers: Sepsis type: puerperal sepsis Qualified Code(s): O85 - Puerperal sepsis (2) Anemia Code(s): D64.9 - ANEMIA, UNSPECIFIED Qualifiers: Anemia type: unspecified type Qualified Code(s): D64.9 - Anemia, unspecified (3) Atrial fibrillation Assessment/Plan: Now on metoprolol ER 50 mg daily. EKG: NSR; APCs. On digoxin; reduce dose to 0.125 mg daily; keep level 0.5-1.0; (also on metoprolol for HR control; LVEF WNL; review continuing need for digoxin). Not on anticoagulant (?due to prior GI bleed); review feasibility of starting warfarin or NOAC. Normal LVEF; mild-moderate LA size;mild MR and TR by 2016 ECHO. EKG in am. Code(s): I48.91 - UNSPECIFIED ATRIAL FIBRILLATION Qualifiers: Atrial fibrillation type: unspecified Qualified Code(s): I48.91 - Unspecified atrial fibrillation (4) COPD (chronic obstructive pulmonary disease) Code(s): J44.9 - CHRONIC OBSTRUCTIVE PULMONARY DISEASE, UNSPECIFIED (5) Melanoma Assessment/Plan: post-craniotomy. MRI: likely abscess, subdural empyema. Stage IV melanoma. s/p craniotomy; debridement; Omayya removal. Code(s): C43.9 - MALIGNANT MELANOMA OF SKIN, UNSPECIFIED (6) Weakness Code(s): R53.1 - WEAKNESS (7) Diastolic CHF Assessment/Plan: on metoprolol,digoxin Furosemide prn. ECHO: normal LVEF; trace-mild TR and MR F/u BUN/Cr, electrolytes, Is and Os, daily weight. BNP 203.9 Plan: discontinue digoxin. Code(s): I50.30 - UNSPECIFIED DIASTOLIC (CONGESTIVE) HEART FAILURE
--- NOTE | 2018-04-07 14:07 | PN ---
Progress Note (short form) - Note Progress Note: Patient is feeling better with no acute distress. Vital Signs Temperature 98.8 F 04/07/18 06:00 Pulse Rate 76 04/07/18 10:34 Respiratory Rate 20 04/07/18 06:00 Blood Pressure 117/67 04/07/18 06:00 O2 Sat by Pulse Oximetry (%) 97 04/06/18 21:00 GENERAL: The patient is awake, alert, and fully oriented, in no acute distress. HEAD: S/P craniotomy. scar visualized. No active draining. EYES: PERRLA, extraocular movements intact b/l. Sclera anicteric, conjunctiva clear. ENT: Oropharynx clear without exudates or lesions. Moist mucous membranes. NECK: Trachea midline, Supple without lymphadenopathy. LUNGS: CTA BL ood inspiratory effort. Breath sounds equal, clear to auscultation bilaterally. CVS: RRR, S1, S2 auscultated without murmur appreciated. ABDOMEN: Soft, nontender, nondistended. Normoactive bowel sounds x4 quadrants. No hepatosplenomegaly appreciated.. EXTREMITIES: 2+ radial and dorsalis pedis pulses. Warm. No lower extremity edema b/l. NEUROLOGICAL: Cranial nerves II through XII grossly intact. PSYCH: Mood and affect appropriate CBCD WBC 10.0 K/mm3 (4.0-10.0) 04/07/18 06:21 RBC 3.22 M/mm3 (4.00-5.60) L 04/07/18 06:21 Hgb 10.5 GM/dL (11.7-16.9) L 04/07/18 06:21 Hct 31.6 % (35.4-49) L 04/07/18 06:21 MCV 98.2 fl (80-96) H 04/07/18 06:21 MCHC 33.2 g/dl (32.0-35.9) 04/07/18 06:21 RDW 18.0 % (11.9-15.9) H 04/07/18 06:21 Plt Count 348 K/MM3 (134-434) 04/07/18 06:21 MPV 8.1 fl (7.5-11.1) 04/07/18 06:21 CMP Sodium 141 mmol/L (136-145) 04/07/18 06:21 Potassium 4.2 mmol/L (3.5-5.1) 04/07/18 06:21 Chloride 104 mmol/L (98-107) 04/07/18 06:21 Carbon Dioxide 27 mmol/L (21-32) 04/07/18 06:21 Anion Gap 10 MMOL/L (8-16) 04/07/18 06:21 BUN 17 mg/dL (7-18) 04/07/18 06:21 Creatinine 0.8 mg/dL (0.55-1.3) 04/07/18 06:21 Creat Clearance w eGFR > 60 (>60) 04/07/18 06:21 Random Glucose 208 mg/dL (74-106) H 04/07/18 06:21 Calcium 9.0 mg/dL (8.5-10.1) 04/07/18 06:21 Total Bilirubin 0.5 mg/dL (0.2-1) 04/07/18 06:21 AST 15 U/L (15-37) 04/07/18 06:21 ALT 35 U/L (13-61) 04/07/18 06:21 Alkaline Phosphatase 88 U/L (45-117) 04/07/18 06:21 Total Protein 5.7 g/dl (6.4-8.2) L 04/07/18 06:21 Albumin 2.5 g/dl (3.4-5.0) L 04/07/18 06:21 CARDIAC ENZYMES Troponin I < 0.02 ng/ml (0.00-0.05) 03/27/18 15:23 Current Medications Generic Name Dose Route Start Last Admin Trade Name Madhu PRN Reason Stop Dose Admin Acetaminophen 650 mg 03/31/18 16:28 04/05/18 18:13 Tylenol - PO 650 mg Q6H PRN Administration TEMP > 100 Albuterol Sulfate 2 puff 04/05/18 22:25 Ventolin Hfa Inhaler - IH Q4H PRN SHORTNESS OF BREATH Ascorbic Acid 250 mg 03/31/18 10:00 04/07/18 10:32 Vitamin C - PO 250 mg DAILY [facility] Administration Budesonide/Formoterol Fumarate 1 puff 03/30/18 22:00 04/07/18 10:35 Symbicort 160/4.5mcg - IH 1 puff BID [facility] Administration Docusate Sodium 100 mg 03/30/18 22:00 04/07/18 05:18 Colace - PO Not Given TID [facility] Ferrous Sulfate 325 mg 03/30/18 22:00 04/07/18 10:32 Feosol - PO 325 mg BID [facility] Administration Gabapentin 600 mg 03/30/18 22:00 04/07/18 05:21 Neurontin - PO 600 mg TID [facility] Administration Heparin Sodium (Porcine) 5,000 unit 04/06/18 22:00 04/07/18 05:58 Heparin - SQ 5,000 unit TID [facility] Administration Ampicillin Sodium 2 gm/ Sodium 100 mls @ 200 mls/hr 03/30/18 18:00 04/07/18 10:33 Chloride IVPB 200 mls/hr Q4H-IV [facility] Administration Vancomycin HCl 1,000 mg/ 250 mls @ 200 mls/hr 04/03/18 18:15 04/07/18 06:20 Sodium Chloride IVPB 200 mls/hr Q12H [facility] Administration Protocol Insulin Aspart 1 vial 03/30/18 14:09 04/07/18 06:32 Novolog Vial Sliding Scale - SQ 5 units ACHS [facility] Administration Protocol Insulin Detemir 7 units 04/02/18 17:52 04/07/18 06:32 Levemir Vial SQ 7 units 0700 [facility] Administration Lactobacillus Acidophilus 1 tab 03/31/18 10:00 04/07/18 10:32 Bacid - PO 1 tab DAILY [facility] Administration Metoprolol Succinate 50 mg 03/30/18 22:00 04/06/18 21:21 Toprol Xl - PO 50 mg HS [facility] Administration Metoprolol Succinate 100 mg 03/31/18 07:00 04/07/18 06:05 Toprol Xl - PO 100 mg DAILY@0700 [facility] Administration Ondansetron HCl 4 mg 03/30/18 16:53 Zofran Injection IVPUSH Q6H PRN NAUSEA Pantoprazole Sodium 40 mg 04/01/18 10:00 04/07/18 10:32 Protonix - PO 40 mg DAILY [facility] Administration Prednisone 5 mg 04/02/18 10:00 04/07/18 10:34 Deltasone - PO 5 mg DAILY [facility] Administration Prednisone 2.5 mg 04/01/18 22:00 04/06/18 21:21 Deltasone - PO 2.5 mg HS [facility] Administration Home Medications Medication Instructions Recorded Budesonide/Formoterol Fumarate 1 ih IH BID 11/08/11 [Symbicort 160-4.5 Mcg Inhaler] Metformin HCl [Metformin HCl ER] 500 mg PO BID 12/09/15 Metoprolol Succinate [Toprol XL -] 50 mg PO HS 12/09/15 Ascorbic Acid [Vitamin C -] 100 mg PO DAILY 04/09/16 Ferrous Sulfate [Feosol] 325 mg PO BID 04/09/16 Gabapentin [Neurontin] 600 mg PO TID 04/09/16 Metoprolol Succinate [Toprol XL -] 100 mg PO AM 04/09/16 Digoxin [Lanoxin -] 0.25 mg PO DAILY #30 tablet 04/12/16 Pantoprazole Sodium [Protonix -] 40 mg PO DAILY 10/18/16 Prednisone 5 mg PO AM 10/18/16 Repaglinide [Prandin -] 1 mg PO DAILY 10/18/16 predniSONE [Deltasone -] 2.5 mg PO HS 10/18/16 Levalbuterol Tartrate [Xopenex Hfa] 15 gm IH PRN 02/15/18 ASSESSMENT AND PLAN: Patient is a 62 year-old man with a PMHx of metastatic melanoma , HTN, afib, NIDDM, adrenal insufficiency, COPD, HLP, nephrectomy, metastatic melanoma s/p craniotomy 5 years ago, s/p re-do craniotomy 01/24 for fluid collection, and Ommaya cath placement, T7-8 disc herniation s/p spinal sx in 02/24 , who presented with fever and purulent drainage from scalp incision site. He was found to have Right frontal collection. # Right frontal abscess: s/p craniotomy by Dr.Tom Simmons s/p debridement and drainage. on IV Abx , vanco, flagyl and ampicillin will continue, ID on the case vanco trough is 15.7 goal is 15-20, continue . Dr. Ramirez Simmons rut remove the sutures on Monday. # H/o A fib: cont. home dig and toprol, dig level noted # H/o adrenal insufficiency: cont. home dose Prednisone 5mg in am and 2.5mg in HS # DM : cont levemir 7U,and SSI . # h/o metastatic melanoma: outpt follow up Heparin sq waiting for rehab. placement after the sutures are removed by Dr.Tom Simmons. Visit type - Emergency Visit Emergency Visit: Yes ED Registration Date: 03/27/18 Care time: The patient presented to the Emergency Department on the above date and was hospitalized for further evaluation of their emergent condition. - New Patient This patient is new to me today: No - Critical Care Critical Care patient: No - Discharge Referral Referred to [facility] Med P.C.: No
[2018-04-07] MEDS ORDERED: INSULIN (NOVOLOG) ASPART 100 UNITS/ML 10ML VIAL ONE (18:20)
[2018-04-07] MEDS: BENZOCAINE/MENTH/CETYLPYRD CL 1 EACH LOZENGE MM PRN (18:35)
[2018-04-07] MEDS: NYSTATIN POWDER 100,000 UNITS/GM - 15 GM TOPICAL POWDER TP SCH (21:11)
[2018-04-08] MEDS: AMPICILLIN - 2 GM in SODIUM CHLORIDE 100 ML IVPB SCH ×6 (02:21→21:55)
[2018-04-08] MEDS: DOCUSATE SODIUM 100 MG CAPSULE (FP) PO SCH ×3 (06:26→21:55)
[2018-04-08] MEDS: GABAPENTIN 300 MG CAPSULE (FP) PO SCH ×3 (06:27→21:54)
[2018-04-08] MEDS: HEPARIN NA (PORCINE) 5,000 UNITS/ML 1ML VIAL SQ SCH ×3 (06:27→21:55)
[2018-04-08] MEDS: INSULIN SLIDING SCALE (NOVOLOG) 1 VIAL SQ SCH ×4 (06:35→21:53)
[2018-04-08] MEDS: INSULIN (LEVEMIR) 100 UNITS/ML UNITS SQ SCH (06:35)
--- NOTE | 2018-04-08 06:59 | PN ---
Progress Note, Physician Chief Complaint: PT A&Ox3;2nd day of having a sore throat (only when he swallows). History of Present Illness: 62 yr old white man with PMHx melanoma, s/p craniotomy 12/2017, thoracic vetebral surgery 01/2018, PAF, HTN, DM, now admitted with fever and weakness. Pt had been undergoing physical therapy at home, but felt too weak to continue. - Current Medication List Current Medications: Active Medications Acetaminophen (Tylenol -) 650 mg PO Q6H PRN PRN Reason: TEMP > 100 Last Admin: 04/05/18 18:13 Dose: 650 mg Albuterol Sulfate (Ventolin Hfa Inhaler -) 2 puff IH Q4H PRN PRN Reason: SHORTNESS OF BREATH Ascorbic Acid (Vitamin C -) 250 mg PO DAILY [facility] Last Admin: 04/07/18 10:32 Dose: 250 mg Benzocaine/Menthol (Cepacol Lozenge -) 1 each MM PRN PRN PRN Reason: SORE THROAT Last Admin: 04/07/18 18:35 Dose: 1 each Budesonide/Formoterol Fumarate (Symbicort 160/4.5mcg -) 1 puff IH BID [facility] Last Admin: 04/07/18 21:15 Dose: 1 puff Docusate Sodium (Colace -) 100 mg PO TID [facility] Last Admin: 04/08/18 06:26 Dose: 100 mg Ferrous Sulfate (Feosol -) 325 mg PO BID [facility] Last Admin: 04/07/18 21:10 Dose: 325 mg Gabapentin (Neurontin -) 600 mg PO TID [facility] Last Admin: 04/08/18 06:27 Dose: 600 mg Heparin Sodium (Porcine) (Heparin -) 5,000 unit SQ TID [facility] Last Admin: 04/08/18 06:27 Dose: 5,000 unit Ampicillin Sodium 2 gm/ Sodium (Chloride) 100 mls @ 200 mls/hr IVPB Q4H-IV [facility] Last Admin: 04/08/18 06:26 Dose: 200 mls/hr Vancomycin HCl 1,000 mg/ (Sodium Chloride) 250 mls @ 200 mls/hr IVPB Q12H [facility]; Protocol Last Admin: 04/07/18 18:12 Dose: 200 mls/hr Insulin Aspart (Novolog Vial Sliding Scale -) 1 vial SQ ACHS [facility]; Protocol Last Admin: 04/08/18 06:35 Dose: 5 units Insulin Detemir (Levemir Vial) 7 units SQ 0700 [facility] Last Admin: 04/08/18 06:35 Dose: 7 units Lactobacillus Acidophilus (Bacid -) 1 tab PO DAILY [facility] Last Admin: 04/07/18 10:32 Dose: 1 tab Metoprolol Succinate (Toprol Xl -) 50 mg PO HS [facility] Last Admin: 04/07/18 21:10 Dose: 50 mg Metoprolol Succinate (Toprol Xl -) 100 mg PO DAILY@0700 [facility] Last Admin: 04/08/18 06:27 Dose: 100 mg Nystatin (Nystop Powder -) 1 applic TP BID [facility] Last Admin: 04/07/18 21:11 Dose: 1 applic Ondansetron HCl (Zofran Injection) 4 mg IVPUSH Q6H PRN PRN Reason: NAUSEA Pantoprazole Sodium (Protonix -) 40 mg PO DAILY [facility] Last Admin: 04/07/18 10:32 Dose: 40 mg Prednisone (Deltasone -) 5 mg PO DAILY [facility] Last Admin: 04/07/18 10:34 Dose: 5 mg Prednisone (Deltasone -) 2.5 mg PO [facility] Last Admin: 04/07/18 21:10 Dose: 2.5 mg - Objective Vital Signs: Vital Signs Temperature 98.2 F 04/07/18 21:00 Pulse Rate 81 04/07/18 21:00 Respiratory Rate 20 04/07/18 21:00 Blood Pressure 123/62 04/07/18 21:00 O2 Sat by Pulse Oximetry (%) 97 04/07/18 21:00 Constitutional: Yes: Calm Eyes: Yes: WNL HENT: Yes: WNL Labs: CBC, BMP 04/07/18 06:21 04/07/18 06:21 INR, PTT INR 1.18 (0.83-1.09) H 03/28/18 07:10 Problem List - Problems (1) Sepsis Assessment/Plan: , pt has been afebrile since 04/03/18; now with sore throat x 48 hours. WBC 10.8-->10.0 S/p craniotomy, ID; Maryya grew culture + for P. acne IV antibiotics per ID (PICC due to need for extended IV Rx). Code(s): A41.9 - SEPSIS, UNSPECIFIED ORGANISM Qualifiers: Sepsis type: puerperal sepsis Qualified Code(s): O85 - Puerperal sepsis (2) Anemia Code(s): D64.9 - ANEMIA, UNSPECIFIED Qualifiers: Anemia type: unspecified type Qualified Code(s): D64.9 - Anemia, unspecified (3) Atrial fibrillation Assessment/Plan: Now on metoprolol ER 50 mg daily.Discontinued digoxin (normal LVEF; HR well- controlled; risk of s/3s with his other medications). EKG: NSR; APCs. Not on anticoagulant (?due to prior GI bleed); review feasibility of starting warfarin or NOAC. Normal LVEF; mild-moderate LA size;mild MR and TR by 2015 ECHO. EKG today: normal sinus rhythm. Code(s): I48.91 - UNSPECIFIED ATRIAL FIBRILLATION Qualifiers: Atrial fibrillation type: unspecified Qualified Code(s): I48.91 - Unspecified atrial fibrillation (4) COPD (chronic obstructive pulmonary disease) Code(s): J44.9 - CHRONIC OBSTRUCTIVE PULMONARY DISEASE, UNSPECIFIED (5) Melanoma Assessment/Plan: post-craniotomy. MRI: likely abscess, subdural empyema. Stage IV melanoma. s/p craniotomy; debridement; Omayya removal. Code(s): C43.9 - MALIGNANT MELANOMA OF SKIN, UNSPECIFIED (6) Weakness Code(s): R53.1 - WEAKNESS (7) Diastolic CHF Assessment/Plan: on metoprolol,digoxin Furosemide prn. ECHO: normal LVEF; trace-mild TR and MR F/u BUN/Cr, electrolytes, Is and Os, daily weight. BNP 203.9 Plan: discontinue digoxin. Code(s): I50.30 - UNSPECIFIED DIASTOLIC (CONGESTIVE) HEART FAILURE
[2018-04-08] MEDS: VANCOMYCIN 1,000 MG in SODIUM CHLORIDE 250 ML IVPB SCH ×2 (07:13→19:00)
[2018-04-08] MEDS: BENZOCAINE/MENTH/CETYLPYRD CL 1 EACH LOZENGE MM PRN (07:18)
[2018-04-08] MEDS ORDERED: NYSTATIN 500,000 UNITS/5 ML SUSPENSION PO ONE (07:55)
--- NOTE | 2018-04-08 07:55 | PN ---
Progress Note (short form) - Note Progress Note: NEUROSURGERY POD #11 No H/A, No N/V, no sz tolerating diet Sore throat, no cough PE: Tmax 98.7, VSS Incision C/D/I, half of sutures removed yesterday General- unremarkable, in good spirit CN- nonfocal; motor- L LE 4+-5/5 catheter tip and cavity fluid- proprionobacter, sensitivity pending C diff negative Brain abscess: s/p craniectomy, debridement, Ommaya reservoir removal Stable neurologically Cont iv abx- on amp/vanco per ID Await final sensitivity OOB/mobilize/PT DVT prophylaxis Nystatin S/S Consider removing remainder of sutures tomorrow
[2018-04-08] MEDS ORDERED: PT OWN MED DRAWER 7, Y5N ONE ×4 (10:17→21:49)
[2018-04-08] MEDS: ASCORBIC ACID 500 MG TABLET (FP) PO SCH (10:23)
[2018-04-08] MEDS: PANTOPRAZOLE 40 MG TABLET (FP) PO SCH (10:23)
[2018-04-08] MEDS: LACTOBACILLUS ACIDOPHILUS 1 TABLET PO SCH (10:23)
[2018-04-08] MEDS: NYSTATIN POWDER 100,000 UNITS/GM - 15 GM TOPICAL POWDER TP SCH ×2 (10:24→22:06)
[2018-04-08] MEDS: BUDESONIDE/FORMETEROL FUMARATE 160/4.5 mcg INHALER IH SCH ×2 (10:24→22:06)
[2018-04-08] MEDS: FERROUS SO4 325 MG TABLET (FP) PO SCH ×2 (10:24→21:55)
[2018-04-08] MEDS: predniSONE 5 MG TABLET (UD) PO SCH ×2 (10:24→21:55)
--- NOTE | 2018-04-08 10:57 | PN ---
Physical Exam: SUBJECTIVE: Patient seen and examined at bedside this morning. He is POD #11 s/ p craniotomy, abscess debridement, and Ommaya catheter removal. Admits continued improvement with tremor in the left hand. Tmax 98.5F today morning. Patient denies headache, double vision, dizziness, chills, shortness of breath, chest pain, palpitations, abdominal pain, nausea vomiting, diarrhea, constipation, melena, hematochezia, dysuria, hematuria. OBJECTIVE: Vital Signs Period Temp Pulse Resp BP Sys/Betancourt Pulse Ox Last 24 Hr 98.2 F-98.7 F 80-89 18-20 114-134/62-88 97 GENERAL: The patient is awake, alert, and fully oriented, in no acute distress. HEAD: S/P craniotomy. Scar visualized, clean sutures. No active draining. Half of sutures removed. EYES: PERRLA, extraocular movements intact b/l. No nystagmus b/l. Sclera anicteric, conjunctiva clear. ENT: Oropharynx clear without exudates or lesions. Moist mucous membranes. NECK: Trachea midline, Supple without lymphadenopathy. LUNGS: Good inspiratory effort. Breath sounds equal, clear to auscultation bilaterally. No wheezes. No accessory muscle use. HEART: Irregular rate and rhythm. S1, S2 auscultated without murmur appreciated. ABDOMEN: Soft, nontender, nondistended. Normoactive bowel sounds x4 quadrants. No guarding, no rebound. No hepatosplenomegaly appreciated.. EXTREMITIES: 2+ radial and dorsalis pedis pulses. Warm. No lower extremity edema b/l. NEUROLOGICAL: Cranial nerves II through XII grossly intact. Normal speech. Strength 5/5 b/l upper extremities in flexion, extension, abduciton, adduction. Tremor in left arm diminishing with strength testing against resistance. Biceps reflex 2+ b/l. Strength 5/5 right lower extremity in hip flexion, extension and knee flexion, extension. Patellar and Achilles tendon reflex 2+ b/l. 5/5 in left lower extremity hip flexion, extension and 4/5 knee flexion, extension. 1+ left patellar reflex, 2+ left Achilles tendon. Plantarflexion and dorsiflexion 5 /5 b/l. Sensation intact b/l upper and lower extremities. PSYCH: Mood and affect appropriate upon my encounter today. Laboratory Results - last 24 hr 04/07/18 04/07/18 04/07/18 11:20 18:15 21:16 POC Glucometer 275 291 322 04/08/18 06:24 POC Glucometer 211 Active Medications Generic Name Dose Route Start Last Admin Trade Name Freq PRN Reason Stop Dose Admin Acetaminophen 650 mg 03/31/18 16:28 04/05/18 18:13 Tylenol - PO 650 mg Q6H PRN Administration TEMP > 100 Albuterol Sulfate 2 puff 04/05/18 22:25 Ventolin Hfa Inhaler - IH Q4H PRN SHORTNESS OF BREATH Ascorbic Acid 250 mg 03/31/18 10:00 04/08/18 10:23 Vitamin C - PO 250 mg DAILY SE[facility]N Administration Benzocaine/Menthol 1 each 04/07/18 14:49 04/08/18 07:18 Cepacol Lozenge - MM 1 each PRN PRN Administration SORE THROAT Budesonide/Formoterol Fumarate 1 puff 03/30/18 22:00 04/08/18 10:24 Symbicort 160/4.5mcg - IH 1 puff BID [facility]N Administration Docusate Sodium 100 mg 03/30/18 22:00 04/08/18 06:26 Colace - PO 100 mg TID SE[facility]ST[facility]N Administration Ferrous Sulfate 325 mg 03/30/18 22:00 04/08/18 10:24 Feosol - PO 325 mg BID [facility] Administration Gabapentin 600 mg 03/30/18 22:00 04/08/18 06:27 Neurontin - PO 600 mg TID [facility]N Administration Heparin Sodium (Porcine) 5,000 unit 04/06/18 22:00 04/08/18 06:27 Heparin - SQ 5,000 unit TID [facility]N Administration Ampicillin Sodium 2 gm/ Sodium 100 mls @ 200 mls/hr 03/30/18 18:00 04/08/18 10:23 Chloride IVPB 200 mls/hr Q4H-IV [facility]N Administration Vancomycin HCl 1,000 mg/ 250 mls @ 200 mls/hr 04/03/18 18:15 04/08/18 07:13 Sodium Chloride IVPB 200 mls/hr Q12H [facility]N Administration Protocol Insulin Aspart 1 vial 03/30/18 14:09 04/08/18 06:35 Novolog Vial Sliding Scale - SQ 5 units ACHS SE[facility]N Administration Protocol Insulin Detemir 7 units 04/02/18 17:52 04/08/18 06:35 Levemir Vial SQ 7 units 0700 [facility]N Administration Lactobacillus Acidophilus 1 tab 03/31/18 10:00 04/08/18 10:23 Bacid - PO 1 tab DAILY [facility] Administration Metoprolol Succinate 50 mg 03/30/18 22:00 04/07/18 21:10 Toprol Xl - PO 50 mg HS [facility]N Administration Metoprolol Succinate 100 mg 03/31/18 07:00 04/08/18 06:27 Toprol Xl - PO 100 mg DAILY@0700 [facility] Administration Nystatin 1 applic 04/07/18 22:00 04/08/18 10:24 Nystop Powder - TP 1 applic BID [facility] Administration Ondansetron HCl 4 mg 03/30/18 16:53 Zofran Injection IVPUSH Q6H PRN NAUSEA Pantoprazole Sodium 40 mg 04/01/18 10:00 04/08/18 10:23 Protonix - PO 40 mg DAILY [facility] Administration Prednisone 5 mg 04/02/18 10:00 04/08/18 10:24 Deltasone - PO 5 mg DAILY [facility] Administration Prednisone 2.5 mg 04/01/18 22:00 04/07/18 21:10 Deltasone - PO 2.5 mg HS [facility] Administration IMAGING: CT head: Nonspecific right frontal rim enhancing lesion 3.4 x 3.4 x 3.3 cm concerning for abscess vs. neoplastic disease. MRI head: Vasogenic edema of right frontal lobe. Findings suggestive of abscess with subdural empyema CT head (post-operative): Vasogenic edema right frontal lobe. No herniation, hydrocephalus. No acute ischemic changes. ASSESSMENT/PLAN: Patient is a 62 year old male with history of stage four melanoma (s/p recent revision of craniotomy in January d/t leaking cyst), Afib (not on anticoagulation) , HTN, DM, COPD, presents with complaint of yellow, sticky discharge from Ommaya catheter for approx. 10 days and new left lower extremity weakness. Brain abscess -Patient is POD #11 s/p craniotomy. -ID consult (Dr. Wilhelm) appreciated: Empiric coverage with Ampicillin 2gm IV Q4H , Vancomycin 1gram Q12H. -Bacid 1 tablet PO daily. -Wound cultures noted. -CSF cultures negative for growth -Blood cultures- negative for growth -Tylenol 650mg PO Q6H PRN for pain 1-5 Fevers -Resolved. Will follow vital signs closely. Hypokalemia, hypophosphatemia -Resolved. -Will continue follow up CMP, Mg, Phos. Adrenal Insufficiency -Endocrinology (Dr. Martinez) consult appreciated. -Reinstate home dose Prednisone 5mg AM, 2.5mg HS. Afib -Not on anticoagulation d/t history of GI bleed, questionable diverticulitis in 2016 -Continue Metoprolol 100mg PO AM, 50mg PO HS -Continue Digoxin 0.25mg PO daily -Cardiac echo shows: LV size, thickness, wall motion, function normal. EF normal. Trace- mild MR, TR. HTN -Continue Metoprolol 100mg PO AM, 50mg PO HS DM -Levemir 7 units subq in the mornings -ISS -BGM ACHS FEN -Patient tolerating PO fluids. Encourage judicious hydration. -Follow CMP -Diabetic diet Prophylaxis -Heparin 5000units subq TID -Pantoprazole 40mg PO daily Disposition -Continue care in medical-surgical floor. Possible D/C tomorrow to [facility] for rehab. Visit type - Emergency Visit Emergency Visit: Yes ED Registration Date: 03/27/18 Care time: The patient presented to the Emergency Department on the above date and was hospitalized for further evaluation of their emergent condition. - New Patient This patient is new to me today: No - Critical Care Critical Care patient: No - Discharge Referral Referred to [facility] Med P.C.: No
--- NOTE | 2018-04-08 11:00 | PN ---
Progress Note, Physician History of Present Illness: POD #11 R frontal craniotomy, debridement/ abscess drainage, removal of Ommaya catheter Awake, alert, oriented No complaints Afebrile WBC WNL Ommaya catheter c/s P. acnes - Current Medication List Current Medications: Active Medications Acetaminophen (Tylenol -) 650 mg PO Q6H PRN PRN Reason: TEMP > 100 Last Admin: 04/05/18 18:13 Dose: 650 mg Albuterol Sulfate (Ventolin Hfa Inhaler -) 2 puff IH Q4H PRN PRN Reason: SHORTNESS OF BREATH Ascorbic Acid (Vitamin C -) 250 mg PO DAILY [facility] Last Admin: 04/08/18 10:23 Dose: 250 mg Benzocaine/Menthol (Cepacol Lozenge -) 1 each MM PRN PRN PRN Reason: SORE THROAT Last Admin: 04/08/18 07:18 Dose: 1 each Budesonide/Formoterol Fumarate (Symbicort 160/4.5mcg -) 1 puff IH BID [facility] Last Admin: 04/08/18 10:24 Dose: 1 puff Docusate Sodium (Colace -) 100 mg PO TID [facility] Last Admin: 04/08/18 06:26 Dose: 100 mg Ferrous Sulfate (Feosol -) 325 mg PO BID [facility] Last Admin: 04/08/18 10:24 Dose: 325 mg Gabapentin (Neurontin -) 600 mg PO TID [facility] Last Admin: 04/08/18 06:27 Dose: 600 mg Heparin Sodium (Porcine) (Heparin -) 5,000 unit SQ TID [facility] Last Admin: 04/08/18 06:27 Dose: 5,000 unit Ampicillin Sodium 2 gm/ Sodium (Chloride) 100 mls @ 200 mls/hr IVPB Q4H-IV [facility] Last Admin: 04/08/18 10:23 Dose: 200 mls/hr Vancomycin HCl 1,000 mg/ (Sodium Chloride) 250 mls @ 200 mls/hr IVPB Q12H [facility]; Protocol Last Admin: 04/08/18 07:13 Dose: 200 mls/hr Insulin Aspart (Novolog Vial Sliding Scale -) 1 vial SQ ACHS [facility]; Protocol Last Admin: 04/08/18 06:35 Dose: 5 units Insulin Detemir (Levemir Vial) 7 units SQ 0700 [facility] Last Admin: 04/08/18 06:35 Dose: 7 units Lactobacillus Acidophilus (Bacid -) 1 tab PO DAILY [facility] Last Admin: 04/08/18 10:23 Dose: 1 tab Metoprolol Succinate (Toprol Xl -) 50 mg PO HS [facility] Last Admin: 04/07/18 21:10 Dose: 50 mg Metoprolol Succinate (Toprol Xl -) 100 mg PO DAILY@0700 [facility] Last Admin: 04/08/18 06:27 Dose: 100 mg Nystatin (Nystop Powder -) 1 applic TP BID [facility] Last Admin: 04/08/18 10:24 Dose: 1 applic Ondansetron HCl (Zofran Injection) 4 mg IVPUSH Q6H PRN PRN Reason: NAUSEA Pantoprazole Sodium (Protonix -) 40 mg PO DAILY [facility] Last Admin: 04/08/18 10:23 Dose: 40 mg Prednisone (Deltasone -) 5 mg PO DAILY [facility] Last Admin: 04/08/18 10:24 Dose: 5 mg Prednisone (Deltasone -) 2.5 mg PO HS [facility] Last Admin: 04/07/18 21:10 Dose: 2.5 mg - Objective Vital Signs: Vital Signs Temperature 98.5 F 04/08/18 06:00 Pulse Rate 81 04/08/18 06:00 Respiratory Rate 20 04/08/18 06:00 Blood Pressure 134/73 04/08/18 06:00 O2 Sat by Pulse Oximetry (%) 97 04/07/18 21:00 Constitutional: Yes: No Distress Eyes: Yes: Conjunctiva Clear HENT: Yes: Other (craniotomy wound no erythema/ drainage) Cardiovascular: Yes: Regular Rate and Rhythm, S1, S2 Respiratory: Yes: CTA Bilaterally Gastrointestinal: Yes: Normal Bowel Sounds, Soft. No: Tenderness Edema: No Labs: CBC, BMP 04/07/18 06:21 04/07/18 06:21 INR, PTT INR 1.18 (0.83-1.09) H 03/28/18 07:10 Assessment/Plan POD #11 R frontal craniotomy/ debridement/ abscess drainage/ removal of Ommaya + catheter c/s P. acnes Stage IV melanoma Solitary kidney Continue ampicillin / vancomycin For PICC, outpatient antibiotics ( ceftriaxone 2gm IVPB q12h x 7d)
[2018-04-08] MEDS ORDERED: INSULIN (NOVOLOG) ASPART 100 UNITS/ML 10ML VIAL ONE (11:49)
--- NOTE | 2018-04-08 17:26 | PN ---
Teaching Attending Note Name of Resident: Dileep Valenzuela ATTENDING PHYSICIAN STATEMENT I saw and evaluated the patient. I reviewed the resident's note and discussed the case with the resident. I agree with the resident's findings and plan as documented. SUBJECTIVE: Patient is comfortable with no acute distress. No chest pain no shortness breath. OBJECTIVE: Vital Signs Temperature 98.2 F 04/08/18 15:36 Pulse Rate 86 04/08/18 15:36 Respiratory Rate 16 04/08/18 15:36 Blood Pressure 131/73 04/08/18 15:36 O2 Sat by Pulse Oximetry (%) 97 04/08/18 09:00 GENERAL: The patient is awake, alert, and fully oriented, in no acute distress. HEAD: S/P craniotomy. scar visualized. No active draining. EYES: PERRLA, extraocular movements intact b/l. Sclera anicteric, conjunctiva clear. ENT: Oropharynx clear without exudates or lesions. Moist mucous membranes. NECK: Trachea midline, Supple without lymphadenopathy. LUNGS: CTA BL ood inspiratory effort. Breath sounds equal, clear to auscultation bilaterally. CVS: RRR, S1, S2 auscultated without murmur appreciated. ABDOMEN: Soft, nontender, nondistended. Normoactive bowel sounds x4 quadrants. No hepatosplenomegaly appreciated.. EXTREMITIES: 2+ radial and dorsalis pedis pulses. Warm. No lower extremity edema b/l. NEUROLOGICAL: Cranial nerves II through XII grossly intact. PSYCH: Mood and affect appropriate CBCD WBC 10.0 K/mm3 (4.0-10.0) 04/07/18 06:21 RBC 3.22 M/mm3 (4.00-5.60) L 04/07/18 06:21 Hgb 10.5 GM/dL (11.7-16.9) L 04/07/18 06:21 Hct 31.6 % (35.4-49) L 04/07/18 06:21 MCV 98.2 fl (80-96) H 04/07/18 06:21 MCHC 33.2 g/dl (32.0-35.9) 04/07/18 06:21 RDW 18.0 % (11.9-15.9) H 04/07/18 06:21 Plt Count 348 K/MM3 (134-434) 04/07/18 06:21 MPV 8.1 fl (7.5-11.1) 04/07/18 06:21 CMP Sodium 141 mmol/L (136-145) 04/07/18 06:21 Potassium 4.2 mmol/L (3.5-5.1) 04/07/18 06:21 Chloride 104 mmol/L (98-107) 04/07/18 06:21 Carbon Dioxide 27 mmol/L (21-32) 04/07/18 06:21 Anion Gap 10 MMOL/L (8-16) 04/07/18 06:21 BUN 17 mg/dL (7-18) 04/07/18 06:21 Creatinine 0.8 mg/dL (0.55-1.3) 04/07/18 06:21 Creat Clearance w eGFR > 60 (>60) 04/07/18 06:21 Random Glucose 208 mg/dL (74-106) H 04/07/18 06:21 Calcium 9.0 mg/dL (8.5-10.1) 04/07/18 06:21 Total Bilirubin 0.5 mg/dL (0.2-1) 04/07/18 06:21 AST 15 U/L (15-37) 04/07/18 06:21 ALT 35 U/L (13-61) 04/07/18 06:21 Alkaline Phosphatase 88 U/L (45-117) 04/07/18 06:21 Total Protein 5.7 g/dl (6.4-8.2) L 04/07/18 06:21 Albumin 2.5 g/dl (3.4-5.0) L 04/07/18 06:21 CARDIAC ENZYMES Troponin I < 0.02 ng/ml (0.00-0.05) 03/27/18 15:23 Current Medications Generic Name Dose Route Start Last Admin Trade Name Freq PRN Reason Stop Dose Admin Acetaminophen 650 mg 03/31/18 16:28 04/05/18 18:13 Tylenol - PO 650 mg Q6H PRN Administration TEMP > 100 Albuterol Sulfate 2 puff 04/05/18 22:25 Ventolin Hfa Inhaler - IH Q4H PRN SHORTNESS OF BREATH Ascorbic Acid 250 mg 03/31/18 10:00 04/08/18 10:23 Vitamin C - PO 250 mg DAILY [facility] Administration Benzocaine/Menthol 1 each 04/07/18 14:49 04/08/18 07:18 Cepacol Lozenge - MM 1 each PRN PRN Administration SORE THROAT Budesonide/Formoterol Fumarate 1 puff 03/30/18 22:00 04/08/18 10:24 Symbicort 160/4.5mcg - IH 1 puff BID [facility] Administration Docusate Sodium 100 mg 03/30/18 22:00 04/08/18 14:30 Colace - PO 100 mg TID [facility] Administration Ferrous Sulfate 325 mg 03/30/18 22:00 04/08/18 10:24 Feosol - PO 325 mg BID [facility] Administration Gabapentin 600 mg 03/30/18 22:00 04/08/18 14:30 Neurontin - PO 600 mg TID [facility]N Administration Heparin Sodium (Porcine) 5,000 unit 04/06/18 22:00 04/08/18 14:30 Heparin - SQ 5,000 unit TID [facility]N Administration Ampicillin Sodium 2 gm/ Sodium 100 mls @ 200 mls/hr 03/30/18 18:00 04/08/18 14:30 Chloride IVPB 200 mls/hr Q4H-IV [facility] Administration Vancomycin HCl 1,000 mg/ 250 mls @ 200 mls/hr 04/03/18 18:15 04/08/18 07:13 Sodium Chloride IVPB 200 mls/hr Q12H [facility] Administration Protocol Insulin Aspart 1 vial 03/30/18 14:09 04/08/18 11:46 Novolog Vial Sliding Scale - SQ 1 units ACHS [facility]N Administration Protocol Insulin Detemir 7 units 04/02/18 17:52 04/08/18 06:35 Levemir Vial SQ 7 units 0700 [facility] Administration Lactobacillus Acidophilus 1 tab 03/31/18 10:00 04/08/18 10:23 Bacid - PO 1 tab DAILY [facility] Administration Metoprolol Succinate 50 mg 03/30/18 22:00 04/07/18 21:10 Toprol Xl - PO 50 mg HS [facility] Administration Metoprolol Succinate 100 mg 03/31/18 07:00 04/08/18 06:27 Toprol Xl - PO 100 mg DAILY@0700 [facility] Administration Nystatin 1 applic 04/07/18 22:00 04/08/18 10:24 Nystop Powder - TP 1 applic BID [facility] Administration Ondansetron HCl 4 mg 03/30/18 16:53 Zofran Injection IVPUSH Q6H PRN NAUSEA Pantoprazole Sodium 40 mg 04/01/18 10:00 04/08/18 10:23 Protonix - PO 40 mg DAILY [facility] Administration Prednisone 5 mg 04/02/18 10:00 04/08/18 10:24 Deltasone - PO 5 mg DAILY [facility] Administration Prednisone 2.5 mg 04/01/18 22:00 04/07/18 21:10 Deltasone - PO 2.5 mg HS [facility]N Administration Home Medications Medication Instructions Recorded Budesonide/Formoterol Fumarate 1 ih IH BID 11/08/11 [Symbicort 160-4.5 Mcg Inhaler] Metformin HCl [Metformin HCl ER] 500 mg PO BID 12/09/15 Metoprolol Succinate [Toprol XL -] 50 mg PO HS 12/09/15 Ascorbic Acid [Vitamin C -] 100 mg PO DAILY 04/09/16 Ferrous Sulfate [Feosol] 325 mg PO BID 04/09/16 Gabapentin [Neurontin] 600 mg PO TID 04/09/16 Metoprolol Succinate [Toprol XL -] 100 mg PO AM 04/09/16 Digoxin [Lanoxin -] 0.25 mg PO DAILY #30 tablet 04/12/16 Pantoprazole Sodium [Protonix -] 40 mg PO DAILY 10/18/16 Prednisone 5 mg PO AM 10/18/16 Repaglinide [Prandin -] 1 mg PO DAILY 10/18/16 predniSONE [Deltasone -] 2.5 mg PO HS 10/18/16 Levalbuterol Tartrate [Xopenex Hfa] 15 gm IH PRN 02/15/18 ASSESSMENT AND PLAN: Patient is a 62 year-old man with a PMHx of metastatic melanoma , HTN, afib, NIDDM, adrenal insufficiency, COPD, HLP, nephrectomy, metastatic melanoma s/p craniotomy 5 years ago, s/p re-do craniotomy 01/24 for fluid collection, and Ommaya cath placement, T7-8 disc herniation s/p spinal sx in 02/24 , who presented with fever and purulent drainage from scalp incision site. He was found to have Right frontal collection. # Right frontal abscess: s/p craniotomy by Dr.Tom Simmons s/p debridement and drainage. on IV Abx , vanco, flagyl and ampicillin will continue, ID on the case vanco trough is 15.7 goal is 15-20, continue . Dr. Ramirez Simmons will remove the sutures on Monday. # H/o A fib: cont. home dig and toprol, dig level noted # H/o adrenal insufficiency: cont. home dose Prednisone 5mg in am and 2.5mg in HS # DM : cont levemir 7U,and SSI . # h/o metastatic melanoma: outpt follow up Heparin sq waiting for rehab. placement after the sutures are removed by Dr.Tom Simmons.
[2018-04-09] MEDS ORDERED: PT OWN MED DRAWER 7, Y5N ONE ×5 (01:02→17:31)
[2018-04-09] MEDS: AMPICILLIN - 2 GM in SODIUM CHLORIDE 100 ML IVPB SCH ×5 (01:12→17:33)
[2018-04-09] MEDS: DOCUSATE SODIUM 100 MG CAPSULE (FP) PO SCH ×2 (05:55→14:22)
[2018-04-09] MEDS: HEPARIN NA (PORCINE) 5,000 UNITS/ML 1ML VIAL SQ SCH ×2 (05:58→14:22)
[2018-04-09] MEDS: GABAPENTIN 300 MG CAPSULE (FP) PO SCH ×2 (05:58→14:22)
[2018-04-09] MEDS: INSULIN (LEVEMIR) 100 UNITS/ML UNITS SQ SCH (06:01)
[2018-04-09] MEDS: INSULIN SLIDING SCALE (NOVOLOG) 1 VIAL SQ SCH ×3 (06:01→17:33)
--- NOTE | 2018-04-09 06:10 | EKG ---
Test Reason : Blood Pressure : / mmHG Vent. Rate : 072 BPM Atrial Rate : 072 BPM P-R Int : 156 ms QRS Dur : 090 ms QT Int : 388 ms P-R-T Axes : 045 064 055 degrees QTc Int : 424 ms NORMAL SINUS RHYTHM NORMAL ECG WHEN COMPARED WITH ECG OF 27-MAR-2018 14:20, PREMATURE ATRIAL COMPLEXES ARE NO LONGER PRESENT Confirmed by KAYDEN DIEGO MD ([id number]) on 04/09/2018 6:09:39 AM Referred By: Mick MORIN Confirmed By:KAYDEN DIEGO MD
[2018-04-09 06:58] LABS: HEMATOCRIT 33.1 % (35.4-49); MCH 32.6 pg (25.7-33.7); MCHC 33.4 g/dl (32.0-35.9); MEAN CELL VOLUME 97.6 fl (80-96); MEAN PLT VOLUME 7.7 fl (7.5-11.1); PLATELET COUNT 421 K/MM3 (134-434); RBC 3.39 M/mm3 (4.00-5.60); RDW 17.6 % (11.9-15.9); WHITE BLOOD COUNT 7.3 K/mm3 (4.0-10.0)
[2018-04-09 07:26] LABS: ALBUMIN 2.6 g/dl (3.4-5.0); ALK PHOS 90 U/L (45-117); ANION GAP 8 MMOL/L (8-16); BILIRUBIN,TOTAL 0.5 mg/dL (0.2-1); BLOOD UREA NITROGEN 11 mg/dL (7-18); CALCIUM 9.1 mg/dL (8.5-10.1); CHLORIDE 101 mmol/L (98-107); CO2 31 mmol/L (21-32); CREATININE 0.7 mg/dL (0.55-1.3); GLUCOSE,RANDOM 212 mg/dL (74-106); POTASSIUM 4.3 mmol/L (3.5-5.1); SGOT/AST 18 U/L (15-37); SGPT/ALT 35 U/L (13-61); SODIUM 140 mmol/L (136-145); TOT PROT 6.1 g/dl (6.4-8.2)
--- NOTE | 2018-04-09 08:08 | PN ---
Progress Note (short form) - Note Progress Note: NEUROSURGERY POD #12 No H/A, No N/V, no sz tolerating diet Sore throat, no cough Walking with walker and PT PE: AF, VSS Incision C/D/I, half of sutures removed previously General- unremarkable, in good spirit CN- nonfocal; motor- L LE 4+-5/5 catheter tip and cavity fluid- proprionobacter, sensitivity pending WBC 7.3, Hgb 11 Brain abscess: s/p craniectomy, debridement, Ommaya reservoir removal Stable neurologically Cont iv abx- on amp/vanco currently Await final sensitivity OOB/mobilize/PT DVT prophylaxis Removing remainder of sutures tomorrow PICC line for outpatient ceftriaxone per ID
[2018-04-09] MEDS: VANCOMYCIN 1,000 MG in SODIUM CHLORIDE 250 ML IVPB SCH ×2 (09:02→18:45)
[2018-04-09] MEDS: ASCORBIC ACID 500 MG TABLET (FP) PO SCH (10:32)
[2018-04-09] MEDS: PANTOPRAZOLE 40 MG TABLET (FP) PO SCH (10:33)
[2018-04-09] MEDS: predniSONE 5 MG TABLET (UD) PO SCH (10:33)
[2018-04-09] MEDS: FERROUS SO4 325 MG TABLET (FP) PO SCH (10:33)
[2018-04-09] MEDS: LACTOBACILLUS ACIDOPHILUS 1 TABLET PO SCH (10:33)
[2018-04-09] MEDS: BUDESONIDE/FORMETEROL FUMARATE 160/4.5 mcg INHALER IH SCH (10:34)
[2018-04-09] MEDS: NYSTATIN POWDER 100,000 UNITS/GM - 15 GM TOPICAL POWDER TP SCH (10:34)
--- NOTE | 2018-04-09 11:23 | DS ---
Physical Exam: SUBJECTIVE: Patient seen and examined at bedside this morning. He is POD #12 s/ p craniotomy, abscess debridement, and Ommaya catheter removal. Patient denies headache, double vision, dizziness, chills, shortness of breath, chest pain, palpitations, abdominal pain, nausea vomiting, diarrhea, constipation, melena, hematochezia, dysuria, hematuria. OBJECTIVE: Vital Signs Period Temp Pulse Resp BP Sys/Betancourt Pulse Ox Last 24 Hr 97.2 F-98.4 F 73-86 16-20 131-137/71-75 PHYSICAL EXAM GENERAL: The patient is awake, alert, and fully oriented, in no acute distress. HEAD: S/P craniotomy. Scar visualized, clean sutures. No active draining. Half of sutures removed. EYES: PERRLA, extraocular movements intact b/l. No nystagmus b/l. Sclera anicteric, conjunctiva clear. ENT: Oropharynx clear without exudates or lesions. Moist mucous membranes. NECK: Trachea midline, Supple without lymphadenopathy. LUNGS: Good inspiratory effort. Breath sounds equal, clear to auscultation bilaterally. No wheezes. No accessory muscle use. HEART: Irregular rate and rhythm. S1, S2 auscultated without murmur appreciated. ABDOMEN: Soft, nontender, nondistended. Normoactive bowel sounds x4 quadrants. No guarding, no rebound. No hepatosplenomegaly appreciated.. EXTREMITIES: 2+ radial and dorsalis pedis pulses. Warm. No lower extremity edema b/l. NEUROLOGICAL: Cranial nerves II through XII grossly intact. Normal speech. Strength 5/5 b/l upper extremities in flexion, extension, abduciton, adduction. Tremor in left arm diminishing with strength testing against resistance. Biceps reflex 2+ b/l. Strength 5/5 right lower extremity in hip flexion, extension and knee flexion, extension. Patellar and Achilles tendon reflex 2+ b/l. 5/5 in left lower extremity hip flexion, extension and 4/5 knee flexion, extension. 1+ left patellar reflex, 2+ left Achilles tendon. Plantarflexion and dorsiflexion 5 /5 b/l. Sensation intact b/l upper and lower extremities. PSYCH: Mood and affect appropriate upon my encounter today. LABS Laboratory Results - last 24 hr 04/08/18 04/08/18 04/08/18 11:46 17:52 21:51 WBC RBC Hgb Hct MCV MCH MCHC RDW Plt Count MPV Sodium Potassium Chloride Carbon Dioxide Anion Gap BUN Creatinine Creat Clearance w eGFR POC Glucometer 134 299 328 Random Glucose Calcium Phosphorus Magnesium Total Bilirubin AST ALT Alkaline Phosphatase Total Protein Albumin 04/09/18 04/09/18 04/09/18 05:50 06:00 06:00 WBC 7.3 RBC 3.39 L Hgb 11.0 L Hct 33.1 L MCV 97.6 H MCH 32.6 MCHC 33.4 RDW 17.6 H Plt Count 421 D MPV 7.7 Sodium 140 Potassium 4.3 Chloride 101 Carbon Dioxide 31 Anion Gap 8 BUN 11 Creatinine 0.7 Creat Clearance w eGFR > 60 POC Glucometer 235 Random Glucose 212 H Calcium 9.1 Phosphorus 4.0 Magnesium 2.0 Total Bilirubin 0.5 AST 18 ALT 35 Alkaline Phosphatase 90 Total Protein 6.1 L Albumin 2.6 L HOSPITAL COURSE: Date of Admission:03/27/18 Date of Discharge: 04/09/18 Patient is a 62 year old male with history of stage four melanoma (s/p recent revision of craniotomy in January d/t leaking cyst), Afib (not on anticoagulation) , HTN, DM, COPD, presented with complaint of yellow, sticky discharge from Ommaya catheter for approx. 10 days, and left lower extremity weakness. CT head showed nonspecific right frontal rim enhancing lesion 3.4 x 3.4 x 3.3 cm concerning for abscess vs. neoplastic disease. MRI head showed vasogenic edema of right frontal lobe, suggestive of abscess with subdural empyema. Patient was taken for craniotomy, abscess debridement, and Ommaya catheter removal. Blood cultures were negative for growth. Wound cultures grew Strep viridians, Staphy epidermidis, E coli, and propionibacterium acnes. Patient was treated with Ceftriaxone, Flagyl, Ampicillin, Vancomycin. Flagyl, and Ceftriaxone were discontinued. Patient was discharged on IV Rocephin 2 grams Q12H for three days via peripheral IV. Instructed to follow up with primary care provider, neurosurgeon, and infectious disease physician within one week of discharge. Minutes to complete discharge: 45 Discharge Summary Reason For Visit: FEVER Current Active Problems Fever (Acute) Intracranial mass (Acute) Weakness (Acute) Condition: Improved - Instructions Diet, Activity, Other Instructions: You were admitted with yellow drainage from the Ommaya catheter, headache and fevers. CAT scan of your brain showed the infection (brain abscess). Neurosurgeon Dr. Simmons performed surgery to remove the Ommaya catheter, and drain the source of infection. You were treated with intravenous antibiotics. We increased your dose of steroids due to the surgery. You will resume your regular dose of Prednisone 5mg in morning, and 2.5mg at night. You will need three more days of intravenous antibiotics (Rocephin 2 grams every 12 hours). Continue taking your home medications as directed. It is important that you follow up with your primary care physician within one week of discharge. It is important that you follow up with the neurosurgeon (Dr. Simmons) within one week of discharge. It is important that you follow up with the infectious disease physician (Dr. Wilhelm) within one week after discharge. Please return to the nearest emergency department if you experience any fevers, chills, headaches, change in vision, lightheadedness, dizziness, falls, chest pain, palpitations, bleeding or drainage from surgical site. Referrals: Ten Wilhelm MD [Staff Physician] - Elias Simmons MD [Staff Physician] - 1 Week Rodrigo Andrade MD [Primary Care Provider] - Disposition: INTERMEDIATE FACILITY - Home Medications Comprehensive Discharge Medication List: Ambulatory Orders Budesonide/Formoterol Fumarate [Symbicort 160-4.5 Mcg Inhaler] 1 ih IH BID 11/07 Metformin HCl [Metformin HCl ER] 500 mg PO BID 12/09/15 Metoprolol Succinate [Toprol XL -] 50 mg PO HS 12/09/15 Ascorbic Acid [Vitamin C -] 100 mg PO DAILY 04/09/16 Ferrous Sulfate [Feosol] 325 mg PO BID 04/09/16 Gabapentin [Neurontin] 600 mg PO TID 04/09/16 Metoprolol Succinate [Toprol XL -] 100 mg PO AM 04/09/16 Digoxin [Lanoxin -] 0.25 mg PO DAILY #30 tablet 04/12/16 Pantoprazole Sodium [Protonix -] 40 mg PO DAILY 10/18/16 Prednisone 5 mg PO AM 10/18/16 Repaglinide [Prandin -] 1 mg PO DAILY 10/18/16 predniSONE [Deltasone -] 2.5 mg PO HS 10/18/16 Levalbuterol Tartrate [Xopenex Hfa] 15 gm IH PRN 02/15/18 Ceftriaxone [Rocephin 2Gm Ivpb (Pre-Docked)] 2 gm IVPB Q12H 3 Days #6 bag This patient is new to me today: No Emergency Visit: Yes ED Registration Date: 03/27/18 Care time: The patient presented to the Emergency Department on the above date and was hospitalized for further evaluation of their emergent condition. Critical Care patient: No - Discharge Referral Referred to [facility] Med P.C.: No
[2018-04-09] MEDS ORDERED: INSULIN (NOVOLOG) ASPART 100 UNITS/ML 10ML VIAL ONE ×2 (11:53→17:31)
--- NOTE | 2018-04-09 12:14 | PN ---
Progress Note, Physician History of Present Illness: 62 yr old white man with PMHx melanoma, s/p craniotomy 12/2017, thoracic vetebral surgery 01/2018, AF, HTN, DM, now admitted with fever and weakness. Pt had been undergoing physical therapy at home, but felt too weak to continue. - Current Medication List Current Medications: Active Medications Acetaminophen (Tylenol -) 650 mg PO Q6H PRN PRN Reason: TEMP > 100 Last Admin: 04/05/18 18:13 Dose: 650 mg Albuterol Sulfate (Ventolin Hfa Inhaler -) 2 puff IH Q4H PRN PRN Reason: SHORTNESS OF BREATH Ascorbic Acid (Vitamin C -) 250 mg PO DAILY [facility] Last Admin: 04/09/18 10:32 Dose: 250 mg Benzocaine/Menthol (Cepacol Lozenge -) 1 each MM PRN PRN PRN Reason: SORE THROAT Last Admin: 04/08/18 07:18 Dose: 1 each Budesonide/Formoterol Fumarate (Symbicort 160/4.5mcg -) 1 puff IH BID [facility] Last Admin: 04/09/18 10:34 Dose: 1 puff Docusate Sodium (Colace -) 100 mg PO TID [facility] Last Admin: 04/09/18 05:55 Dose: 100 mg Ferrous Sulfate (Feosol -) 325 mg PO BID [facility] Last Admin: 04/09/18 10:33 Dose: 325 mg Gabapentin (Neurontin -) 600 mg PO TID [facility] Last Admin: 04/09/18 05:58 Dose: 600 mg Heparin Sodium (Porcine) (Heparin -) 5,000 unit SQ TID [facility] Last Admin: 04/09/18 05:58 Dose: 5,000 unit Ampicillin Sodium 2 gm/ Sodium (Chloride) 100 mls @ 200 mls/hr IVPB Q4H-IV [facility] Last Admin: 04/09/18 11:11 Dose: 200 mls/hr Vancomycin HCl 1,000 mg/ (Sodium Chloride) 250 mls @ 200 mls/hr IVPB Q12H [facility]; Protocol Last Admin: 04/09/18 09:02 Dose: 200 mls/hr Insulin Aspart (Novolog Vial Sliding Scale -) 1 vial SQ ACHS [facility]; Protocol Last Admin: 04/09/18 11:56 Dose: 5 units Insulin Detemir (Levemir Vial) 7 units SQ 0700 [facility] Last Admin: 04/09/18 06:01 Dose: 7 units Lactobacillus Acidophilus (Bacid -) 1 tab PO DAILY [facility] Last Admin: 04/09/18 10:33 Dose: 1 tab Metoprolol Succinate (Toprol Xl -) 50 mg PO HS [facility] Last Admin: 04/08/18 21:55 Dose: 50 mg Metoprolol Succinate (Toprol Xl -) 100 mg PO DAILY@0700 [facility] Last Admin: 04/09/18 06:00 Dose: 100 mg Nystatin (Nystop Powder -) 1 applic TP BID [facility] Last Admin: 04/09/18 10:34 Dose: 1 applic Ondansetron HCl (Zofran Injection) 4 mg IVPUSH Q6H PRN PRN Reason: NAUSEA Pantoprazole Sodium (Protonix -) 40 mg PO DAILY [facility] Last Admin: 04/09/18 10:33 Dose: 40 mg Prednisone (Deltasone -) 5 mg PO DAILY [facility] Last Admin: 04/09/18 10:33 Dose: 5 mg Prednisone (Deltasone -) 2.5 mg PO [facility] Last Admin: 04/08/18 21:55 Dose: 2.5 mg - Objective Vital Signs: Vital Signs Temperature 98.1 F 04/09/18 06:00 Pulse Rate 74 04/09/18 06:00 Respiratory Rate 18 04/09/18 06:00 Blood Pressure 131/72 04/09/18 06:00 O2 Sat by Pulse Oximetry (%) 97 04/08/18 09:00 Eyes: Yes: WNL, Conjunctiva Clear, EOM Intact HENT: Yes: WNL, Atraumatic, Normocephalic Neck: Yes: WNL, Supple, Trachea Midline Cardiovascular: Yes: WNL, Regular Rate and Rhythm Respiratory: Yes: WNL, Regular, CTA Bilaterally Gastrointestinal: Yes: WNL, Normal Bowel Sounds Genitourinary: Yes: WNL Musculoskeletal: Yes: WNL Extremities: Yes: WNL Edema: No Integumentary: Yes: WNL Neurological: Yes: WNL, Alert, Oriented ...Motor Strength: WNL Psychiatric: Yes: WNL Labs: CBC, BMP 04/09/18 06:00 04/09/18 06:00 INR, PTT INR 1.18 (0.83-1.09) H 03/28/18 07:10 Assessment/Plan - Problems (1) Sepsis Assessment/Plan: , pt has been afebrile since 04/03/18; now with sore throat x 48 hours. WBC 10.8-->10.0 S/p craniotomy, ID; Omayya grew culture + for P. acne IV antibiotics per ID (PICC due to need for extended IV Rx). Code(s): A41.9 - SEPSIS, UNSPECIFIED ORGANISM Qualifiers: Sepsis type: puerperal sepsis Qualified Code(s): O85 - Puerperal sepsis (2) Anemia Code(s): D64.9 - ANEMIA, UNSPECIFIED Qualifiers: Anemia type: unspecified type Qualified Code(s): D64.9 - Anemia, unspecified (3) Atrial fibrillation Assessment/Plan: Now on metoprolol ER 50 mg daily.Discontinued digoxin (normal LVEF; HR well- controlled; risk of s/3s with his other medications). EKG: NSR; APCs. Not on anticoagulant (?due to prior GI bleed); review feasibility of starting warfarin or NOAC. Normal LVEF; mild-moderate LA size;mild MR and TR by 2016 ECHO. EKG today: normal sinus rhythm. Code(s): I48.91 - UNSPECIFIED ATRIAL FIBRILLATION Qualifiers: Atrial fibrillation type: unspecified Qualified Code(s): I48.91 - Unspecified atrial fibrillation (4) COPD (chronic obstructive pulmonary disease) Code(s): J44.9 - CHRONIC OBSTRUCTIVE PULMONARY DISEASE, UNSPECIFIED (5) Melanoma Assessment/Plan: post-craniotomy. MRI: likely abscess, subdural empyema. Stage IV melanoma. s/p craniotomy; debridement; Omayya removal. Code(s): C43.9 - MALIGNANT MELANOMA OF SKIN, UNSPECIFIED (6) Weakness Code(s): R53.1 - WEAKNESS (7) Diastolic CHF Assessment/Plan: on metoprolol,digoxin Furosemide prn. ECHO: normal LVEF; trace-mild TR and MR F/u BUN/Cr, electrolytes, Is and Os, daily weight. BNP 203.9 Plan: discontinue digoxin. Code(s): I50.30 - UNSPECIFIED DIASTOLIC (CONGESTIVE) HEART FAILURE
--- NOTE | 2018-04-09 15:38 | PN ---
Teaching Attending Note Name of Resident: Dileep Shawkarolina ATTENDING PHYSICIAN STATEMENT I saw and evaluated the patient. I reviewed the resident's note and discussed the case with the resident. I agree with the resident's findings and plan as documented. SUBJECTIVE: Patient is comfortable with no acute distress. OBJECTIVE: Vital Signs Temperature 98.6 F 04/09/18 15:15 Pulse Rate 92 H 04/09/18 15:15 Respiratory Rate 20 04/09/18 15:15 Blood Pressure 117/62 04/09/18 15:15 O2 Sat by Pulse Oximetry (%) 98 04/09/18 09:00 CBCD WBC 7.3 K/mm3 (4.0-10.0) 04/09/18 06:00 RBC 3.39 M/mm3 (4.00-5.60) L 04/09/18 06:00 Hgb 11.0 GM/dL (11.7-16.9) L 04/09/18 06:00 Hct 33.1 % (35.4-49) L 04/09/18 06:00 MCV 97.6 fl (80-96) H 04/09/18 06:00 MCHC 33.4 g/dl (32.0-35.9) 04/09/18 06:00 RDW 17.6 % (11.9-15.9) H 04/09/18 06:00 Plt Count 421 K/MM3 (134-434) D 04/09/18 06:00 MPV 7.7 fl (7.5-11.1) 04/09/18 06:00 GENERAL: The patient is awake, alert, and fully oriented, in no acute distress. HEAD: S/P craniotomy. scar visualized. No active draining. EYES: PERRLA, extraocular movements intact b/l. Sclera anicteric, conjunctiva clear. ENT: Oropharynx clear without exudates or lesions. Moist mucous membranes. NECK: Trachea midline, Supple without lymphadenopathy. LUNGS: CTA BL ood inspiratory effort. Breath sounds equal, clear to auscultation bilaterally. CVS: RRR, S1, S2 auscultated without murmur appreciated. ABDOMEN: Soft, nontender, nondistended. Normoactive bowel sounds x4 quadrants. No hepatosplenomegaly appreciated.. EXTREMITIES: 2+ radial and dorsalis pedis pulses. Warm. No lower extremity edema b/l. NEUROLOGICAL: Cranial nerves II through XII grossly intact. PSYCH: Mood and affect appropriate CMP Sodium 140 mmol/L (136-145) 04/09/18 06:00 Potassium 4.3 mmol/L (3.5-5.1) 04/09/18 06:00 Chloride 101 mmol/L (98-107) 04/09/18 06:00 Carbon Dioxide 31 mmol/L (21-32) 04/09/18 06:00 Anion Gap 8 MMOL/L (8-16) 04/09/18 06:00 BUN 11 mg/dL (7-18) 04/09/18 06:00 Creatinine 0.7 mg/dL (0.55-1.3) 04/09/18 06:00 Creat Clearance w eGFR > 60 (>60) 04/09/18 06:00 Random Glucose 212 mg/dL (74-106) H 04/09/18 06:00 Calcium 9.1 mg/dL (8.5-10.1) 04/09/18 06:00 Total Bilirubin 0.5 mg/dL (0.2-1) 04/09/18 06:00 AST 18 U/L (15-37) 04/09/18 06:00 ALT 35 U/L (13-61) 04/09/18 06:00 Alkaline Phosphatase 90 U/L (45-117) 04/09/18 06:00 Total Protein 6.1 g/dl (6.4-8.2) L 04/09/18 06:00 Albumin 2.6 g/dl (3.4-5.0) L 04/09/18 06:00 CARDIAC ENZYMES Troponin I < 0.02 ng/ml (0.00-0.05) 03/27/18 15:23 Current Medications Generic Name Dose Route Start Last Admin Trade Name Freq PRN Reason Stop Dose Admin Acetaminophen 650 mg 03/31/18 16:28 04/05/18 18:13 Tylenol - PO 650 mg Q6H PRN Administration TEMP > 100 Albuterol Sulfate 2 puff 04/05/18 22:25 Ventolin Hfa Inhaler - IH Q4H PRN SHORTNESS OF BREATH Ascorbic Acid 250 mg 03/31/18 10:00 04/09/18 10:32 Vitamin C - PO 250 mg DAILY [facility] Administration Benzocaine/Menthol 1 each 04/07/18 14:49 04/08/18 07:18 Cepacol Lozenge - MM 1 each PRN PRN Administration SORE THROAT Budesonide/Formoterol Fumarate 1 puff 03/30/18 22:00 04/09/18 10:34 Symbicort 160/4.5mcg - IH 1 puff BID [facility] Administration Docusate Sodium 100 mg 03/30/18 22:00 04/09/18 14:22 Colace - PO 100 mg TID [facility] Administration Ferrous Sulfate 325 mg 03/30/18 22:00 04/09/18 10:33 Feosol - PO 325 mg BID [facility] Administration Gabapentin 600 mg 03/30/18 22:00 04/09/18 14:22 Neurontin - PO 600 mg TID [facility] Administration Heparin Sodium (Porcine) 5,000 unit 04/06/18 22:00 04/09/18 14:22 Heparin - SQ 5,000 unit TID [facility] Administration Ampicillin Sodium 2 gm/ Sodium 100 mls @ 200 mls/hr 03/30/18 18:00 04/09/18 14:22 Chloride IVPB 200 mls/hr Q4H-IV [facility] Administration Vancomycin HCl 1,000 mg/ 250 mls @ 200 mls/hr 04/03/18 18:15 04/09/18 09:02 Sodium Chloride IVPB 200 mls/hr Q12H [facility] Administration Protocol Insulin Aspart 1 vial 03/30/18 14:09 04/09/18 11:56 Novolog Vial Sliding Scale - SQ 5 units ACHS [facility] Administration Protocol Insulin Detemir 7 units 04/02/18 17:52 04/09/18 06:01 Levemir Vial SQ 7 units 0700 [facility] Administration Lactobacillus Acidophilus 1 tab 03/31/18 10:00 04/09/18 10:33 Bacid - PO 1 tab DAILY [facility] Administration Metoprolol Succinate 50 mg 03/30/18 22:00 04/08/18 21:55 Toprol Xl - PO 50 mg HS [facility] Administration Metoprolol Succinate 100 mg 03/31/18 07:00 04/09/18 06:00 Toprol Xl - PO 100 mg DAILY@0700 [facility] Administration Nystatin 1 applic 04/07/18 22:00 04/09/18 10:34 Nystop Powder - TP 1 applic BID [facility] Administration Ondansetron HCl 4 mg 03/30/18 16:53 Zofran Injection IVPUSH Q6H PRN NAUSEA Pantoprazole Sodium 40 mg 04/01/18 10:00 04/09/18 10:33 Protonix - PO 40 mg DAILY [facility] Administration Prednisone 5 mg 04/02/18 10:00 04/09/18 10:33 Deltasone - PO 5 mg DAILY [facility] Administration Prednisone 2.5 mg 04/01/18 22:00 04/08/18 21:55 Deltasone - PO 2.5 mg HS [facility] Administration Home Medications Medication Instructions Recorded Budesonide/Formoterol Fumarate 1 ih IH BID 11/08/11 [Symbicort 160-4.5 Mcg Inhaler] Metformin HCl [Metformin HCl ER] 500 mg PO BID 12/09/15 Metoprolol Succinate [Toprol XL -] 50 mg PO HS 12/09/15 Ascorbic Acid [Vitamin C -] 100 mg PO DAILY 04/09/16 Ferrous Sulfate [Feosol] 325 mg PO BID 04/09/16 Gabapentin [Neurontin] 600 mg PO TID 04/09/16 Metoprolol Succinate [Toprol XL -] 100 mg PO AM 04/09/16 Digoxin [Lanoxin -] 0.25 mg PO DAILY #30 tablet 04/12/16 Pantoprazole Sodium [Protonix -] 40 mg PO DAILY 10/18/16 Prednisone 5 mg PO AM 10/18/16 Repaglinide [Prandin -] 1 mg PO DAILY 10/18/16 predniSONE [Deltasone -] 2.5 mg PO HS 10/18/16 Levalbuterol Tartrate [Xopenex Hfa] 15 gm IH PRN 02/15/18 Ceftriaxone [Rocephin 2Gm Ivpb 2 gm IVPB Q12H 3 Days #6 bag 04/09/18 (Pre-Docked)] Microbiology 03/28/18 11:49 Body Fluid - Other Gram Stain - Final 03/28/18 11:49 Body Fluid - Other Body Fluid Culture - Final NO GROWTH OF AEROBIC ORGANISMS AFTER 48 HOURS INCUBATION 03/28/18 11:49 Body Fluid - Other Anaerobic Culture - Final Propionibacterium Acnes 03/28/18 13:31 Catheter Tip - Catheter - Other Foreign Body Culture - Final Propionibacterium Acnes 04/01/18 06:44 Stool Clostridium difficile Antigen (THERESA) - Final 04/01/18 06:44 Stool Clostridium difficile Toxin Assay - Final 03/28/18 11:49 Body Fluid - Other Gram Stain - Final 03/28/18 11:49 Body Fluid - Other Body Fluid Culture - Final NO GROWTH OF AEROBIC ORGANISMS AFTER 48 HOURS INCUBATION 03/28/18 11:49 Body Fluid - Other Anaerobic Culture - Preliminary Propionibacterium Acnes 03/27/18 15:29 Blood - Peripheral Venous Blood Culture - Final NO GROWTH AFTER 5 DAYS INCUBATION 03/27/18 15:20 Blood - Peripheral Venous Blood Culture - Final NO GROWTH AFTER 5 DAYS INCUBATION 03/27/18 22:23 Head Gram Stain - Final 03/27/18 22:23 Head Wound Culture - Final Staphylococcus Epidermidis Streptococcus Viridans 03/28/18 10:43 Head Gram Stain - Final 03/28/18 10:43 Head Wound Culture - Final Staphylococcus Epidermidis Escherichia Coli 03/28/18 13:28 Cerebral Spinal Fluid - Shunt-Csf Gram Stain - Final 03/28/18 13:28 Cerebral Spinal Fluid - Shunt-Csf CSF Culture - Final 03/27/18 15:36 Urine - Urine Clean Catch Urine Culture - Final NO GROWTH OBTAINED 03/28/18 11:38 Head Gram Stain - Final 03/28/18 00:00 Nasopharyngeal Swab Influenza Types A,B Antigen - Final 03/28/18 00:00 Nasopharyngeal Swab - Final ASSESSMENT AND PLAN: Patient is a 62 year-old man with a PMHx of metastatic melanoma , HTN, afib, NIDDM, adrenal insufficiency, COPD, HLP, nephrectomy, metastatic melanoma s/p craniotomy 5 years ago, s/p re-do craniotomy 01/24 for fluid collection, and Ommaya cath placement, T7-8 disc herniation s/p spinal sx in 02/24 , who presented with fever and purulent drainage from scalp incision site. He was found to have Right frontal collection. # Right frontal abscess: s/p craniotomy by Dr.Tom Simmons s/p debridement and drainage. s/p IV vanco, flagyl and ampicillin Dr. Ramirez Simmons removed the sutures . will the discharge the patient to rehab on IV Rocephin 2gm as per ID x 3 more days # H/o A fib: cont. home dig and toprol, dig level noted # H/o adrenal insufficiency: cont. home dose Prednisone 5mg in am and 2.5mg in HS # DM : cont levemir 7U,and SSI . # h/o metastatic melanoma: outpt follow up will discharge the patient to rehab., the sutures are removed by Dr.Tom Simmons.
[2018-04-09 17:13] VITALS: BP 114/61; PULSE 90; TEMP 98
== END 2018-04-09 21:53 | DRG 23 ==
LOC: JER 13:37 → JERBED 19:21 → UNDOADMIN 21:07 → JERBED 21:07 → JICU 03-28 14:42 → J8W 03-30 16:14
PROVIDERS: ADMIT Internal Medicine; ATTEND Internal Medicine
PROC: 00P Central Nervous System and Cranial Nerves, Removal (ICD-10-PCS; 2018-03-28)
PROC: 0JB00ZZ Excision of Scalp Subcutaneous Tissue and Fascia, Open Approach (ICD-10-PCS; 2018-03-28)
PROC: 0NP00JZ Removal of Synthetic Substitute from Skull, Open Approach (ICD-10-PCS; 2018-03-28)
PROC: 0J900ZX Drainage of Scalp Subcutaneous Tissue and Fascia, Open Approach, Diagnostic (ICD-10-PCS; 2018-03-28)
PROC: 009T3ZX Drainage of Spinal Meninges, Percutaneous Approach, Diagnostic (ICD-10-PCS; 2018-03-28)
PROC: 00P60JZ Removal of Synthetic Substitute from Cerebral Ventricle, Open Approach (ICD-10-PCS; principal; 2018-03-28 09:00)
DX: G06.0 Intracranial abscess and granuloma (principal); G93.6 Cerebral edema; C79.31 Secondary malignant neoplasm of brain; E27.40 Unspecified adrenocortical insufficiency; C79.02 Secondary malignant neoplasm of left kidney and renal pelvis; J98.11 Atelectasis; I50.30 Unspecified diastolic (congestive) heart failure; J90 Pleural effusion, not elsewhere classified; I11.0 Hypertensive heart disease with heart failure; C43.9 Malignant melanoma of skin, unspecified; I48.91 Unspecified atrial fibrillation; E11.9 Type 2 diabetes mellitus without complications; R56.9 Unspecified convulsions; J44.9 Chronic obstructive pulmonary disease, unspecified; M54.5 Low back pain; B95.7 Other staphylococcus as the cause of diseases classified elsewhere; D64.9 Anemia, unspecified; R53.1 Weakness; S01.00XA Unspecified open wound of scalp, initial encounter; E83.39 Other disorders of phosphorus metabolism; E88.09 Other disorders of plasma-protein metabolism, not elsewhere classified; E83.42 Hypomagnesemia; E66.9 Obesity, unspecified; M51.24 Other intervertebral disc displacement, thoracic region; B96.20 Unspecified Escherichia coli [E. coli] as the cause of diseases classified elsewhere; Z68.30 Body mass index [BMI] 30.0-30.9, adult; Z90.5 Acquired absence of kidney; Z96.652 Presence of left artificial knee joint; Z87.891 Personal history of nicotine dependence
CPT/HCPCS: 36415; 36430; 70450-TC; 70470-TC; 70553-TC; 71045-TC-FY; 80048; 80053; 80162; 81003; 81015; 82533; 82803; 82945; 82947; 82962; 83735; 83880; 84100; 84132; 84157; 84484; 85025; 85027; 85610; 85730; 86850; 86900; 86901; 86922; 87040; 87070; 87075; 87076; 87077; 87086; 87186; 87205; 87324; 87449; 87804; 88300-TC; 88304-TC; 88307-TC; 88311-TC; 88331-TC; 93005; 93010; 93306-TC; 93970-TC; 94760; 97116-GP; 97161-GP; 99285-25; G0480; J0131; J1644; J7030

== ENCOUNTER 2018-10-03 12:21 | Emergency (ER) | payer OTHER, BC ==
[2018-10-03 12:33] VITALS: TEMP 98.2; BMI 28.3
--- NOTE | 2018-10-03 13:52 | PDOC ---
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 The patient states he went to physical therapy for the first time today to regain strength and upon leaving, his left knee buckled causing him to fall backward sustaining head injury to his left posterior scalp. He states his head hit a planter when he fell. He reports a mild ROBERTS localized to the left posterior lateral scalp. Denies LOC. He denies any other injuries or complaints. DEnies recent fevers, chills, cp, sob, focal weakness or numbness. Per pt's , he does not have any residual metastatic disease after treatment. Allergies: codeine, morphine PCP - Dr. Andrade Neuro: Dr. Simmons Past History - Past Medical History Allergies/Adverse Reactions: Allergies Allergy/AdvReac Type Severity Reaction Status Date / Time codeine [Codeine] AdvReac Severe abd pain Verified 10/03/18 12:31 morphine AdvReac Severe Verified 10/03/18 12:31 Home Medications: Ambulatory Orders Budesonide/Formoterol Fumarate [Symbicort 160-4.5 Mcg Inhaler] 1 ih IH BID 11/07 Metoprolol Succinate [Toprol XL -] 50 mg PO HS 12/09/15 metFORMIN HCL [Metformin ER Osmotic] 500 mg PO BID 12/09/15 Ascorbic Acid [Vitamin C -] 100 mg PO DAILY 04/09/16 Ferrous Sulfate [Feosol] 325 mg PO BID 04/09/16 Gabapentin [Neurontin] 600 mg PO TID 04/09/16 Metoprolol Succinate [Toprol XL -] 100 mg PO AM 04/09/16 Digoxin [Lanoxin -] 0.25 mg PO DAILY #30 tablet 04/12/16 Pantoprazole Sodium [Protonix -] 40 mg PO DAILY 10/18/16 Prednisone 5 mg PO AM 10/18/16 Repaglinide [Prandin -] 1 mg PO DAILY 10/18/16 predniSONE [Deltasone -] 2.5 mg PO HS 10/18/16 Levalbuterol Tartrate [Xopenex Hfa] 15 gm IH PRN 02/15/18 Ceftriaxone [Rocephin 2Gm Ivpb (Pre-Docked)] 2 gm IVPB Q12H 3 Days #6 bag Anemia: Yes Asthma: Yes Cancer: Yes (MELANOMA stage 4) Cardiac Disorders: Yes (AFIB,) COPD: Yes Diabetes: Yes GI Disorders: Yes (diverticulitis/colitis) Seizures: Yes (CLEARED MASS IN FRONTAL LOBE) Thyroid Disease: (adrenal insufficiency) - Surgical History Abdominal Surgery: Yes (HOLLY INGUINAL HERNIA REPAIR X2) Cardiac Surgery: No (CARDIAC CATH 07/2008 CLEAR) Cholecystectomy: Yes Neurologic Surgery: Yes (CRANIOTOMY 11/18) Orthopedic Surgery: Yes (left femoral dissection and total knee replacement) - Immunization History Td Vaccination: No TDAP Vaccination: No Immunization Up to Date: No - Suicide/Smoking/Psychosocial Hx Smoking Status: No Smoking History: Former smoker Have you smoked in the past 12 months: No Number of Cigarettes Smoked Daily: 0 If you are a former smoker, when did you quit?: 18 years ago Information on smoking cessation initiated: No 'Breaking Loose' booklet given: 04/22/16 Hx Alcohol Use: No Drug/Substance Use Hx: No Substance Use Type: None Hx Substance Use Treatment: No Review of Systems - Review of Systems Comments:: 10/03/18 18:05 "GENERAL/CONSTITUTIONAL: No fever or chills. No weakness. HEAD, EYES, EARS, NOSE AND THROAT: No change in vision. No ear pain or discharge. No sore throat. GASTROINTESTINAL: No nausea, vomiting, diarrhea or constipation. GENITOURINARY: No dysuria, frequency, or change in urination. CARDIOVASCULAR: No chest pain or shortness of breath. RESPIRATORY: No cough, wheezing, or hemoptysis. MUSCULOSKELETAL: No joint or muscle swelling or pain. No neck or back pain. SKIN: No rash NEUROLOGIC: (+) Left posterior lateral headache. No vertigo, loss of consciousness, or change in strength/sensation. ENDOCRINE: No increased thirst. No abnormal weight change. HEMATOLOGIC/LYMPHATIC: No anemia, easy bleeding, or history of blood clots. ALLERGIC/IMMUNOLOGIC: No hives or skin allergy." *Physical Exam - Vital Signs Last Vital Signs Temp Pulse Resp BP Pulse Ox 98.2 F 67 18 133/80 97 10/03/18 12:31 10/03/18 12:31 10/03/18 12:31 10/03/18 12:31 10/03/18 12:31 - Physical Exam Comments: 10/03/18 18:05 GENERAL: Awake, alert, and fully oriented, in no acute distress HEAD: No signs of trauma, no hematomas or open wounds ENT: Oropharynx clear without exudates. Moist mucosa LUNGS: Breath sounds equal, clear to auscultation bilaterally. No wheezes, and no crackles HEART: Regular rate and rhythm, normal S1 and S2, no murmurs, rubs or gallops ABDOMEN: Soft, nontender, normoactive bowel sounds. No guarding, no rebound. No masses EXTREMITIES: Normal range of motion, no edema. No cords, erythema, or tenderness BACK: No midline spinal tenderness in cervical/thoracic/lumbar region NEUROLOGICAL: Normal speech, cranial nerves intact, equal strength and sensation b/l SKIN: Warm, Dry, normal turgor, no rashes or lesions noted. ED Treatment Course - LABORATORY CBC & Chemistry Diagram: 10/03/18 15:35 10/03/18 15:35 - RADIOLOGY Radiology Studies Ordered: Category Date Time Status HEAD CT WITHOUT CONTRAST [CT] Stat CT Scan 10/03/18 13:29 Taken Medical Decision Making - Medical Decision Making 10/03/18 18:06 62yo M with MMP including metastatic melanoma, not currently on chemo or radiation presents to the ED with mechanical fall after his leg gave out. He reports his leg gives out often and his reports he is supposed to be using a walker and he refuses to. +mild headache, but pt declines pain meds even tylenol Vitals wnl. Exam with no evidence of trauma, pt at baseline. Pt has no pain. CTH negative for acute change but showed changes consistent with encephalomalacia. Pt's neurosurgeon is Dr. Simmons, discussed CTH results with him, he states that these findings are consistent with his previous surgery and not acute. Dr. Simmons requests a set of basic labs to eval for elevated WBC. CBC/BMP ordered, are unremarkable. All results discussed with patient and his . Pt is well appearing, stable for DC home. Return precautions given. I discussed the physical exam findings, ancillary test results and final diagnoses with the patient. I answered all of the patient's questions. The patient was satisfied with the care received and felt comfortable with the discharge plan and treatment plan. The patient will call their primary care physician within 24 hours to arrange follow-up and will return to the Emergency Department with any new, persistent or worsening symptoms. 10/03/18 18:11 *DC/Admit/Observation/Transfer Diagnosis at time of Disposition: Closed head injury, Fall, Headache - Discharge Dispostion Disposition: HOME Condition at time of disposition: Stable Decision to Admit order: No - Referrals Referrals: Rodrigo Andrade MD [Primary Care Provider] - - Patient Instructions Printed Discharge Instructions: DI for Closed Head Injury Additional Instructions: Follow up with your primary care doctor in 1-2 days. Return to the emergency department if you have any new, worsening, or concerning symptoms - Post Discharge Activity - Attestations Physician Attestion: 10/03/18 18:12 I, Dr. Thierry Vargas MD, attest that this document has been prepared under my direction and personally reviewed by me in its entirety. I further attest, that it accurately reflects all work, treatment, procedures and medical decision -making performed by me.
[2018-10-03 15:48] LABS: BASO % 0.5 % (0-2.0); EOS % 1.1 % (0-4.5); HEMATOCRIT 36.4 % (35.4-49); HEMOGLOBIN 11.7 GM/dL (11.7-16.9); MCH 29.8 pg (25.7-33.7); MCHC 32.2 g/dl (32.0-35.9); MEAN CELL VOLUME 92.5 fl (80-96); MEAN PLT VOLUME 7.8 fl (7.5-11.1); MONO % 6.1 % (3.8-10.2); NEUT % 79.3 % (42.8-82.8); PLATELET COUNT 243 K/MM3 (134-434); RBC 3.93 M/mm3 (4.00-5.60); RDW 15.1 % (11.9-15.9); WHITE BLOOD COUNT 8.8 K/mm3 (4.0-10.0)
[2018-10-03 16:13] LABS: ANION GAP 8 MMOL/L (8-16); BLOOD UREA NITROGEN 14 mg/dL (7-18); CALCIUM 8.8 mg/dL (8.5-10.1); CHLORIDE 105 mmol/L (98-107); CO2 26 mmol/L (21-32); CREATININE 0.8 mg/dL (0.55-1.3); GLUCOSE,RANDOM 142 mg/dL (74-106); SODIUM 140 mmol/L (136-145)
[2018-10-03 18:57] VITALS: BP 135/78; PULSE 72
== END 2018-10-03 16:22 | disposition home or self-care (01) ==
LOC: JER 12:21
DX: S09.90XA Unspecified injury of head, initial encounter (principal); R51 Headache; W10.9XXA Fall (on) (from) unspecified stairs and steps, initial encounter; Y93.89 Activity, other specified; Y92.531 Health care provider office as the place of occurrence of the external cause; C43.9 Malignant melanoma of skin, unspecified; C71.9 Malignant neoplasm of brain, unspecified; I10 Essential (primary) hypertension; E78.5 Hyperlipidemia, unspecified; E11.9 Type 2 diabetes mellitus without complications; I48.91 Unspecified atrial fibrillation; J45.909 Unspecified asthma, uncomplicated; Z87.891 Personal history of nicotine dependence
CPT/HCPCS: 36415; 70450-TC; 80048; 85025; 99281-25

== ENCOUNTER 2019-03-27 06:48 | Inpatient (IN) | payer OTHER, BC ==
[2019-03-27] MEDS ORDERED: SODIUM CHLORIDE 500 ML IV STA (07:41)
[2019-03-27 08:53] LABS: BASO % 0.8 % (0-2.0); EOS % 1.3 % (0-4.5); HEMOGLOBIN 10.1 GM/dL (11.7-16.9); LYMPH % 14.9 % (8-40); MCH 27.6 pg (25.7-33.7); MCHC 31.7 g/dl (32.0-35.9); MEAN CELL VOLUME 86.9 fl (80-96); MEAN PLT VOLUME 7.3 fl (7.5-11.1); MONO % 8.2 % (3.8-10.2); NEUT % 74.8 % (42.8-82.8); PLATELET COUNT 273 K/MM3 (134-434); RBC 3.68 M/mm3 (4.00-5.60); RDW 19.6 % (11.9-15.9); WHITE BLOOD COUNT 9.2 K/mm3 (4.0-10.0)
[2019-03-27 09:25] LABS: INR 1.13 (0.83-1.09); PROTHROMBIN TIME (PATIENT) 13.4 SEC (9.7-13.0)
[2019-03-27 09:26] LABS: ALBUMIN 2.8 g/dl (3.4-5.0); BILIRUBIN,TOTAL 0.5 mg/dL (0.2-1); CALCIUM 8.4 mg/dL (8.5-10.1); POTASSIUM 3.8 mmol/L (3.5-5.1); TOT PROT 5.7 g/dl (6.4-8.2)
--- NOTE | 2019-03-27 09:35 | PDOC ---
Documentation entered by Viry Lyles SCRIBE, acting as scribe for Kaleb Garcia MD. Kaleb Garcia MD: This documentation has been prepared by the Rafal lord Sammi, SCRIBE, under my direction and personally reviewed by me in its entirety. I confirm that the documentation accurately reflects all work, treatment, procedures, and medical decision making performed by me. 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 The patient reports an episode of a headache, nausea, and dizziness this morning, causing him to lose balance and catching himself on a table. at bedside states the patient has been agitated for the past week and notes he was pale and out of it for a few minutes following incident this morning. Patient notes palpitations on Monday which have subsided. Denies chest pain or shortness of breath. PCP: Javier Amos Cardio: [place] Neurosurg: [place] [facility] hx: former smoker (~20 yrs ago) Past History - Past Medical History Allergies/Adverse Reactions: Allergies Allergy/AdvReac Type Severity Reaction Status Date / Time codeine [Codeine] AdvReac Severe abd pain Verified 03/27/19 06:56 morphine AdvReac Severe Verified 03/27/19 06:56 Home Medications: Ambulatory Orders Budesonide/Formoterol Fumarate [Symbicort 160-4.5 Mcg Inhaler] 1 ih IH BID 11/07 Metoprolol Succinate [Toprol XL -] 50 mg PO HS 12/09/15 metFORMIN HCL [Metformin ER Osmotic] 500 mg PO BID 12/09/15 Ascorbic Acid [Vitamin C -] 100 mg PO DAILY 04/09/16 Ferrous Sulfate [Feosol] 325 mg PO BID 04/09/16 Gabapentin [Neurontin] 600 mg PO TID 04/09/16 Metoprolol Succinate [Toprol XL -] 100 mg PO AM 04/09/16 Digoxin [Lanoxin -] 0.25 mg PO DAILY #30 tablet 04/12/16 Pantoprazole Sodium [Protonix -] 40 mg PO DAILY 10/18/16 Prednisone 5 mg PO AM 10/18/16 Repaglinide [Prandin -] 1 mg PO DAILY 10/18/16 predniSONE [Deltasone -] 2.5 mg PO HS 10/18/16 Levalbuterol Tartrate [Xopenex Hfa] 15 gm IH PRN 02/15/18 Ceftriaxone [Rocephin 2Gm Ivpb (Pre-Docked)] 2 gm IVPB Q12H 3 Days #6 bag Anemia: Yes Asthma: Yes Cancer: Yes (MELANOMA stage 4) Cardiac Disorders: Yes (AFIB,) COPD: Yes Diabetes: Yes GI Disorders: Yes (diverticulitis/colitis) Seizures: Yes (CLEARED MASS IN FRONTAL LOBE) Thyroid Disease: (adrenal insufficiency) - Surgical History Abdominal Surgery: Yes (HOLLY INGUINAL HERNIA REPAIR X2) Cardiac Surgery: No (CARDIAC CATH 07/2008 CLEAR) Cholecystectomy: Yes Neurologic Surgery: Yes (CRANIOTOMY 11/18) Orthopedic Surgery: Yes (left femoral dissection and total knee replacement) - Immunization History Td Vaccination: No TDAP Vaccination: No Immunization Up to Date: No - Suicide/Smoking/Psychosocial Hx Smoking Status: No Smoking History: Unknown if ever smoked Have you smoked in the past 12 months: No Number of Cigarettes Smoked Daily: 0 If you are a former smoker, when did you quit?: 18 years ago 'Breaking Loose' booklet given: 04/22/16 Hx Alcohol Use: No Drug/Substance Use Hx: No Substance Use Type: None Hx Substance Use Treatment: No Review of Systems - Review of Systems Comments:: 03/27/19 07:54 CONSTITUTIONAL: No fever, no chills, no fatigue EYES: No visual changes ENT: No ear pain, no sore throat CARDIOVASCULAR: No chest pain RESPIRATORY: No cough, no SOB GI: (+)nausea. No abdominal pain, no vomiting, no constipation, no diarrhea GENITOURINARY: No dysuria, no frequency, no hematuria MUSKULOSKELETAL: No backpain, no joint pain, no myalgias SKIN: No rash NEURO: (+)headache (+)dizziness *Physical Exam - Vital Signs Last Vital Signs Temp Pulse Resp BP Pulse Ox 97.7 F 76 18 95/54 L 99 03/27/19 06:54 03/27/19 06:54 03/27/19 06:54 03/27/19 06:54 03/27/19 06:54 - Physical Exam Comments: 03/27/19 09:08 CONSTITUTIONAL: (+)orthostatic. Awake, alert, pale appearing, in no distress, HEAD: (+)palpable defect to right hemicacalvarian EYES: PERRL; EOM intact ENMT: (+)mid chin scar. External appears normal; normal oropharynx NECK: (+)left anterior cervical scare. Supple; non-tender; no cervical lymphadenopathy CARD: irregularly, irregular, Normal S1, S2; no murmurs, rubs, or gallops RESP: Normal chest excursion with respiration; breath sounds clear and equal bilaterally; no wheezes, rhonchi, or rales EXT: (+)left thigh scar. Normal ROM in all four extremities; non-tender to palpation; distal pulses intact SKIN: Warm, dry, no rash NEURO: aox3; cn ii-xii groslly intact, motor:5/5x4, no pronation drift; gait- deffered. Heart Score/ECG Review - ECG Impressions Comment:: 03/27/19 07:43 A flutter with variable conduction. ED Treatment Course - LABORATORY CBC & Chemistry Diagram: 03/27/19 08:45 03/27/19 08:45 - ADDITIONAL ORDERS Additional order review: Laboratory Results 03/27/19 03/27/19 08:45 08:45 PT with INR 13.40 H INR 1.13 H Sodium 139 Potassium 3.8 Chloride 102 Carbon Dioxide 29 Anion Gap 8 BUN 20.0 H Creatinine 1.0 Est GFR (CKD-EPI)AfAm 91.78 Est GFR (CKD-EPI)NonAf 79.19 Random Glucose 176 H Calcium 8.4 L Magnesium 2.0 Total Bilirubin 0.5 AST 11 L ALT 17 Alkaline Phosphatase 93 Total Protein 5.7 L Albumin 2.8 L 03/27/19 08:45 RBC 3.68 L MCV 86.9 MCHC 31.7 L RDW 19.6 H MPV 7.3 L Neutrophils % 74.8 Lymphocytes % 14.9 Monocytes % 8.2 Eosinophils % 1.3 Basophils % 0.8 - RADIOLOGY Radiology Studies Ordered: Category Date Time Status HEAD CT WITHOUT CONTRAST [CT] Stat CT Scan 03/27/19 07:41 Taken CHEST X-RAY PORTABLE* [RAD] Stat Radiology 03/27/19 07:39 Completed - Medications Given in the ED: ED Medications Discontinued Medications Generic Name Dose Route Start Last Admin Trade Name Madhu PRN Reason Stop Dose Admin Sodium Chloride 500 mls @ 500 mls/hr 03/27/19 07:41 03/27/19 08:41 Normal Saline - IV 03/27/19 08:40 500 mls/hr ASDIR STA Administration Medical Decision Making - Medical Decision Making 03/27/19 09:30 Patient is 63-year-old male with history of metastatic malignant melanoma, a flutter (not on anticoagulation currently),copd, dm presents with signs and sxs c/w near syncopal episode. in the ed, pt is awake, alert, w/o focal neur deficits, orthostatic clinically and by vs. EKG reveals aflutter at rate of 63 with variable conduction w/o evidence of acute ischemia. pt is pale appearing, but denies melena. will obtain cbc, cmp, cardiac profile, ua, chest x-ray, ct head head. will judiciously hydrate, will reascess. likely admission. *DC/Admit/Observation/Transfer Diagnosis at time of Disposition: Near syncope Gastrointestinal hemorrhage Qualifiers: GI bleed type/associated pathology: unspecified gastrointestinal hemorrhage type Qualified Code(s): K92.2 - Gastrointestinal hemorrhage, unspecified Atrial flutter Qualifiers: Atrial flutter type: unspecified Qualified Code(s): I48.92 - Unspecified atrial flutter - Discharge Dispostion Condition at time of disposition: Fair Decision to Admit order: Yes - Referrals - Patient Instructions - Post Discharge Activity
[2019-03-27] MEDS ORDERED: PANTOPRAZOLE SODIUM 40 MG VIAL IVPUSH ONE (10:59)
[2019-03-27] MEDS ORDERED: PANTOPRAZOLE SODIUM 40 MG VIAL ONE (11:10)
--- NOTE | 2019-03-27 11:17 | EKG ---
Test Reason : Blood Pressure : / mmHG Vent. Rate : 075 BPM Atrial Rate : 312 BPM P-R Int : 000 ms QRS Dur : 090 ms QT Int : 376 ms P-R-T Axes : 269 061 048 degrees QTc Int : 419 ms ATRIAL FLUTTER WITH VARIABLE A-V BLOCK WITH PREMATURE VENTRICULAR OR ABERRANTLY CONDUCTED COMPLEXES NONSPECIFIC ST ABNORMALITY ABNORMAL ECG WHEN COMPARED WITH ECG OF 08-APR-2018 11:10, ATRIAL FLUTTER HAS REPLACED SINUS RHYTHM ST NOW DEPRESSED IN INFERIOR LEADS Confirmed by MCKAYLA MORRIS, MARK ([id number]) on 03/27/2019 11:17:00 AM Referred By: Confirmed By:MARK BLOCK MD
--- NOTE | 2019-03-27 12:50 | CON.GI ---
Consult Consult Specialty:: Gastroenterology Referred by:: Dr. Kaleb Garcia Reason for Consultation:: near syncope following nausea - History of Present Illness Chief Complaint: near syncope History of Present Illness: 63M with h/0 diffuse melanoma and s/p multiple therapies developed nausea from the smell of his pet's dogfood this AM. He did not vomit and denies sharp abdominal pain. He dies have dyspepsis. He suffered an near syncopal spell after the nausea but did not lose consciousness. He has lost about 50lbs this year and did not have the PET scan that his oncologist at [facility] ordered in 11/25. he has lost 10 lbs within the past month despite a good appetite. His bowel movements fluctuate between formed and diarrhea and are iron stained. he denies ant overt rectal bleeding or melena. He had an EGD and a colonoscopy with nc on 12/09/15 when no UGI bleeding source was found.His colonoscopy revealed multiple hyperpigmented lesions but biopsies did not confirm melena. He presented with GI bleeding at that time. He is not receiving any chemotherapy at present and denies using NSAIDs. His Hb is not far from baseline. Also had a ROBERTS this moring. - History Source History Provided By: Patient Limitations to Obtaining History: No Limitations - Past Medical History SANITOR: Yes: Seizure (related to cerebral melanoma) Cardio/Vascular: Yes: AFIB, HTN Pulmonary: Yes: Asthma, COPD Gastrointestinal: Yes: Diverticulosis, Other (multiple hyperpigmented colonic lesions and diverticulosis on 12/23 colonoscopy biut biopsies did not confirm melanoma) Renal/: Yes: Other (L Nephrectomy) Heme/Onc: Yes: Cancer (diffuse including cerebral melanoma) Musculoskeletal: Yes: Chronic low back pain Endocrine: Yes: Diabetes Mellitus, Other (Adrenal Insufficiency) Dermatology: Yes: Melanoma (diffuse and s/p multiple therapies) - Past Surgical History Past Surgical History: Yes: Cholecystectomy - Alcohol/Substance Use Hx Alcohol Use: No - Smoking History Smoking history: Unknown if ever smoked Have you smoked in the past 12 months: No Aproximately how many cigarettes per day: 0 If you are a former smoker, when did you quit?: 18 years ago - Social History Usual Living Arrangement: With Spouse ADL: Independent 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 History of Recent Travel: No Home Medications - Allergies Allergies/Adverse Reactions: Allergies Allergy/AdvReac Type Severity Reaction Status Date / Time codeine [Codeine] AdvReac Severe abd pain Verified 03/27/19 06:56 morphine AdvReac Severe Verified 03/27/19 06:56 - Home Medications Home Medications: Ambulatory Orders Budesonide/Formoterol Fumarate [Symbicort 160-4.5 Mcg Inhaler] 1 ih IH BID 11/07 Metoprolol Succinate [Toprol XL -] 50 mg PO HS 12/09/15 metFORMIN HCL [Metformin ER Osmotic] 500 mg PO DAILY 12/09/15 Ascorbic Acid [Vitamin C -] 100 mg PO DAILY 04/09/16 Ferrous Sulfate [Feosol] 325 mg PO DAILY 04/09/16 Gabapentin [Neurontin] 600 mg PO TID 04/09/16 Metoprolol Succinate [Toprol XL -] 100 mg PO AM 04/09/16 Digoxin [Lanoxin -] 0.25 mg PO DAILY #30 tablet 04/12/16 Prednisone 5 mg PO AM 10/18/16 Repaglinide [Prandin -] 1 mg PO BID 10/18/16 predniSONE [Deltasone -] 2.5 mg PO HS 10/18/16 Levalbuterol Tartrate [Xopenex Hfa] 15 gm IH PRN PRN 02/15/18 Alprazolam [Xanax] 0.25 mg PO Q8H PRN 03/27/19 Rosuvastatin Calcium [Crestor] 5 mg PO DAILY 03/27/19 Family Disease History - Family Disease History Family Disease History: Diabetes: Father, CA: Son (melanoma) Physical Exam-GI Vital Signs: Vital Signs Temperature 98.1 F 03/27/19 06:56 Pulse Rate 85 03/27/19 10:27 Respiratory Rate 10 03/27/19 06:56 Blood Pressure 108/39 L 03/27/19 10:27 O2 Sat by Pulse Oximetry (%) 98 03/27/19 12:15 Current Medications Generic Name Dose Route Start Last Admin Trade Name Freq PRN Reason Stop Dose Admin Pantoprazole Sodium 40 mg 03/27/19 22:00 Protonix Iv IVPUSH BID SEBASTIÁN CBC,CMP WBC 9.2 K/mm3 (4.0-10.0) 03/27/19 08:45 RBC 3.68 M/mm3 (4.00-5.60) L 03/27/19 08:45 Hgb 10.1 GM/dL (11.7-16.9) L 03/27/19 08:45 Hct 32.0 % (35.4-49) L 03/27/19 08:45 MCV 86.9 fl (80-96) 03/27/19 08:45 MCH 27.6 pg (25.7-33.7) 03/27/19 08:45 MCHC 31.7 g/dl (32.0-35.9) L 03/27/19 08:45 RDW 19.6 % (11.9-15.9) H 03/27/19 08:45 Plt Count 273 K/MM3 (134-434) 03/27/19 08:45 MPV 7.3 fl (7.5-11.1) L 03/27/19 08:45 Absolute Neuts (auto) 6.9 K/mm3 (1.5-8.0) 03/27/19 08:45 Neutrophils % 74.8 % (42.8-82.8) 03/27/19 08:45 Lymphocytes % 14.9 % (8-40) 03/27/19 08:45 Monocytes % 8.2 % (3.8-10.2) 03/27/19 08:45 Eosinophils % 1.3 % (0-4.5) 03/27/19 08:45 Basophils % 0.8 % (0-2.0) 03/27/19 08:45 Nucleated RBC % 0 % (0-0) 03/27/19 08:45 Sodium 139 mmol/L (136-145) 03/27/19 08:45 Potassium 3.8 mmol/L (3.5-5.1) 03/27/19 08:45 Chloride 102 mmol/L (98-107) 03/27/19 08:45 Carbon Dioxide 29 mmol/L (21-32) 03/27/19 08:45 Anion Gap 8 MMOL/L (8-16) 03/27/19 08:45 BUN 20.0 mg/dL (7-18) H 03/27/19 08:45 Creatinine 1.0 mg/dL (0.55-1.3) 03/27/19 08:45 Est GFR (CKD-EPI)AfAm 91.78 03/27/19 08:45 Est GFR (CKD-EPI)NonAf 79.19 03/27/19 08:45 Random Glucose 176 mg/dL (74-106) H 03/27/19 08:45 Calcium 8.4 mg/dL (8.5-10.1) L 03/27/19 08:45 Magnesium 2.0 mg/dL (1.8-2.4) 03/27/19 08:45 Total Bilirubin 0.5 mg/dL (0.2-1) 03/27/19 08:45 AST 11 U/L (15-37) L 03/27/19 08:45 ALT 17 U/L (13-61) 03/27/19 08:45 Alkaline Phosphatase 93 U/L (45-117) 03/27/19 08:45 Total Protein 5.7 g/dl (6.4-8.2) L 03/27/19 08:45 Albumin 2.8 g/dl (3.4-5.0) L 03/27/19 08:45 Constitutional: Yes: Anxious Eyes: Yes: Conjunctiva Clear HENT: Yes: Other (dry tongue) Neck: Yes: Trachea Midline Cardiovascular: Yes: Regular Rate and Rhythm Respiratory: Yes: CTA Bilaterally Gastrointestinal Inspection: Yes: Scars (left lower lateral incisional hernia is nontender RIH,LIH and laaparoscopic inicsions) ...Auscultate: Yes: Normoactive Bowel Sounds ...Palpate: Yes: Tenderness (LUQ tenderness but no peritoneal signs) ...Rectal Exam: Yes: Guaiac Positive (iron stained g positive stool) Neurological: Yes: Alert, Oriented Labs: CBC, BMP 03/27/19 08:45 03/27/19 08:45 INR, PTT INR 1.13 (0.83-1.09) H 03/27/19 08:45 Problem List - Problems (1) Nausea Assessment/Plan: The combination of nausea, headache, diarrhea and dehydration suggests a viral gastroenteritis Code(s): R11.0 - NAUSEA (2) Occult blood in stools Code(s): R19.5 - OTHER FECAL ABNORMALITIES (3) Hernia of abdominal wall Code(s): K43.9 - VENTRAL HERNIA WITHOUT OBSTRUCTION OR GANGRENE (4) Near syncope Code(s): R55 - SYNCOPE AND COLLAPSE (5) Dehydration Code(s): E86.0 - DEHYDRATION (6) Atrial fibrillation Code(s): I48.91 - UNSPECIFIED ATRIAL FIBRILLATION Qualifiers: Atrial fibrillation type: unspecified Qualified Code(s): I48.91 - Unspecified atrial fibrillation (7) COPD (chronic obstructive pulmonary disease) Code(s): J44.9 - CHRONIC OBSTRUCTIVE PULMONARY DISEASE, UNSPECIFIED (8) Diabetes Code(s): E11.9 - TYPE 2 DIABETES MELLITUS WITHOUT COMPLICATIONS (9) Headache Code(s): R51 - HEADACHE (10) Intracranial mass Code(s): R90.0 - INTCRN SPACE-OCCUPYING LESION FOUND ON DX IMAGING OF CNSL (11) Metastatic melanoma Code(s): C79.9 - SECONDARY MALIGNANT NEOPLASM OF UNSPECIFIED SITE (12) Atrial flutter Code(s): I48.92 - UNSPECIFIED ATRIAL FLUTTER Qualifiers: Atrial flutter type: unspecified Qualified Code(s): I48.92 - Unspecified atrial flutter Assessment/Plan Assessment: - The combination of nausea, headache, diarrhea and dehydration suggests a viral gastroenteritis - Occult bleeding is suspected to be chronic and from small bowel vascular ectasias however GI melanoma was not excluded by colonoscopic biopsies Plan: -- IV rehydration -- Clear liquids -- Reglan -- PPI -- Follow CBCs, if Hb drops significantly I will consider repeat endoscopic reevaluation
[2019-03-27] MEDS ORDERED: PATIENT'S OWN MEDICATION (NON-FORMULARY) (Metformin Hcl [Metformin Er Osmotic] 500 MG) PO SCH (14:30)
[2019-03-27] MEDS ORDERED: PATIENT'S OWN MEDICATION (NON-FORMULARY) (Gabapentin [Neurontin] 600 MG) PO SCH (14:30)
[2019-03-27 14:40] LABS: URINE APPEARANCE CLEAR; URINE BILIRUBIN NEGATIVE (NEGATIVE); URINE COLOR YELLOW; URINE GLUCOSE (UA) NEGATIVE (NEGATIVE); URINE KETONE TRACE (NEGATIVE); URINE LEUK ESTERASE NEGATIVE (NEGATIVE); URINE NITRITE NEGATIVE (NEGATIVE); URINE PROTEIN NEGATIVE (NEGATIVE); URINE UROBILINOGEN 0.2 mg/dL (0.2-1.0)
[2019-03-27] MEDS: DIGOXIN 0.25 MG TABLET (FP) PO SCH (15:04)
[2019-03-27] MEDS: ALPRAZolam 0.25 MG TABLET PO PRN (15:57)
[2019-03-27] MEDS ORDERED: PT OWN MED DRAWER 7, Y5N ONE ×3 (17:19→22:19)
[2019-03-27] MEDS ORDERED: REPAGLINIDE 2 MG TABLET (FP) PO SCH (17:30)
--- NOTE | 2019-03-27 17:58 | HP ---
Admitting History and Physical - Primary Care Physician PCP: Brayden Amos - Admission Chief Complaint: Dizziness History of Present Illness: Pt in [place] until this AM when became "dizzy" after smelling his dog food; it lasted couple of minutes, not associated with CP, palpitations, SOB. Pt came to ER where was found to have low BP (improved with IVF) and stool positive for blood. 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 s/p nephrectomy) Musculoskeletal: Yes: Chronic low back pain Endocrine: Yes: Diabetes Mellitus, Other (Adrenal Insufficiency) Dermatology: Yes: Melanoma (diffuse and s/p multiple therapies) - Past Surgical History Past Surgical History: Yes: Cholecystectomy, Nephrectomy (Left) - Advance Directives Advance Directives: Yes: Living Will, Health Care Proxy - Smoking History Smoking history: Unknown if ever smoked Have you smoked in the past 12 months: No Aproximately how many cigarettes per day: 0 If you are a former smoker, when did you quit?: 18 years ago - Alcohol/Substance Use Hx Alcohol Use: No - Social History ADL: Independent 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 History of Recent Travel: No Home Medications - Allergies Allergies/Adverse Reactions: Allergies Allergy/AdvReac Type Severity Reaction Status Date / Time codeine [Codeine] AdvReac Severe abd pain Verified 03/27/19 06:56 morphine AdvReac Severe Verified 03/27/19 06:56 - Home Medications Home Medications: Ambulatory Orders Budesonide/Formoterol Fumarate [Symbicort 160-4.5 Mcg Inhaler] 1 ih IH BID 11/07 Metoprolol Succinate [Toprol XL -] 50 mg PO HS 12/09/15 metFORMIN HCL [Metformin ER Osmotic] 500 mg PO DAILY 12/09/15 Ascorbic Acid [Vitamin C -] 100 mg PO DAILY 04/09/16 Ferrous Sulfate [Feosol] 325 mg PO DAILY 04/09/16 Gabapentin [Neurontin] 600 mg PO TID 04/09/16 Metoprolol Succinate [Toprol XL -] 100 mg PO AM 04/09/16 Digoxin [Lanoxin -] 0.25 mg PO DAILY #30 tablet 04/12/16 Prednisone 5 mg PO AM 10/18/16 Repaglinide [Prandin -] 1 mg PO BID 10/18/16 predniSONE [Deltasone -] 2.5 mg PO HS 10/18/16 Levalbuterol Tartrate [Xopenex Hfa] 15 gm IH PRN PRN 02/15/18 Alprazolam [Xanax] 0.25 mg PO Q8H PRN 03/27/19 Rosuvastatin Calcium [Crestor] 5 mg PO DAILY 03/27/19 Family Disease History - Family Disease History Family Disease History: Diabetes: Father, CA: Son (melanoma) Review of Systems - Review of Systems Constitutional: reports: Loss of Appetite, Weakness. denies: Chills, Fever Eyes: reports: Double Vision. denies: Blurred Vision HENT: reports: Difficult Swallowing. denies: Ear Discharge, Nasal Congestion, Throat Pain Neck: denies: Stiffness, Tenderness Cardiovascular: denies: Chest Pain, Edema, Palpitations Respiratory: denies: Cough, Hemoptysis, Wheezing Gastrointestinal: denies: Abdominal Pain, Diarrhea, Rectal Bleeding, Vomiting Blood Genitourinary: denies: Burning, Discharge Musculoskeletal: reports: Back Pain (chronic). denies: Extremity Pain Integumentary: reports: Eczema. denies: Bruising Neurological: denies: Change in LOC, Confusion Endocrine: denies: Excessive Sweating, Unexplained Weight Gain Hematology/Lymphatic: denies: Easily Bruised, Excessive Bleeding Psychiatric: reports: Anxiety. denies: Depression Physical Examination Vital Signs: Vital Signs Temperature 97.7 F 03/27/19 12:45 Pulse Rate 105 H 03/27/19 15:04 Respiratory Rate 18 03/27/19 12:45 Blood Pressure 115/63 03/27/19 12:45 O2 Sat by Pulse Oximetry (%) 98 03/27/19 15:00 Constitutional: Yes: No Distress, Calm Eyes: Yes: Conjunctiva Clear, EOM Intact HENT: Yes: Normocephalic. No: Epistaxis, Nasal Congestion Neck: Yes: Supple, Trachea Midline. No: Lymphadenopathy Cardiovascular: Yes: Tachycardia, Pulse Irregular. No: Bruit, JVD Respiratory: Yes: Regular (but coarse BS), CTA Bilaterally Gastrointestinal: Yes: Normal Bowel Sounds, Soft. No: Hepatomegaly, Splenomegaly, Tenderness ...Rectal Exam: Yes: Deferred Renal/: No: Bladder Distention, Otero Present Extremities: No: Cool, Cyanosis Edema: No Integumentary: No: Bruising, Erythema, Jaundice Neurological: Yes: Alert, Oriented, Other (motor and sensory examination is symmetric in UE/ LE/ face) Psychiatric: Yes: Alert, Oriented. No: Agitated Labs: CBC, BMP 03/27/19 08:45 03/27/19 08:45 Imaging - Results Chest X-ray: Report Reviewed Cat Scan: Report Reviewed Problem List - Problems (1) Atrial fibrillation with RVR Code(s): I48.91 - UNSPECIFIED ATRIAL FIBRILLATION (2) Near syncope Code(s): R55 - SYNCOPE AND COLLAPSE (3) Occult blood in stools Code(s): R19.5 - OTHER FECAL ABNORMALITIES (4) Anemia Code(s): D64.9 - ANEMIA, UNSPECIFIED Qualifiers: Anemia type: unspecified type Qualified Code(s): D64.9 - Anemia, unspecified (5) Dehydration Code(s): E86.0 - DEHYDRATION (6) Metastatic melanoma Code(s): C79.9 - SECONDARY MALIGNANT NEOPLASM OF UNSPECIFIED SITE Assessment/Plan Serial CE GI consult, appreciated Cardio consult IVF Admit to Monitor bed AM labs Pt's condition was d/w pt and his (at bedside); all questins were answered
--- NOTE | 2019-03-27 18:12 | CON.CARD ---
Consult Consult Specialty:: Cardiology Referred by:: Dr. Amos Reason for Consultation:: Syncope/near syncope, atrial fibrillation with rapid VR. - History of Present Illness Chief Complaint: Dizziness/lightheadedness and palpitation. History of Present Illness: 63year old man with a PMHx of HTN, DM, HLD, Afib, not on AC due to GI bleed and falls, stage 4 melanoma, s/p multiple prior surgeries including left kidney resection, s/p craniotomy 12/2017, thoracic vertebral surgery 01/2018 admitted with near syncope. The patient reports an episode of a headache, nausea, and dizziness this morning , causing him to lose balance and catching himself on a table. He also reports intermittent palpitation and one episodes of left sided chest pain 2 days prior to the admission. The patient was found to have orthostatic hypotension. ECG shows atrial fibrillation/flutter at 75 BPM. However, telemetry reveals episodes of rapid VR , up to 160s BPM. Seen by GI, IV hydration and PPI recommended. CT scan of head unremarkable. Echo 04/06/2018 [facility]: LV size, thickness, and function are normal Mild MR/TR. 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) Cardio/Vascular: Yes: AFIB, HTN Pulmonary: Yes: Asthma, COPD Gastrointestinal: Yes: Diverticulosis, Other (multiple hyperpigmented colonic lesions and diverticulosis on 12/23 colonoscopy biut biopsies did not confirm melanoma) Renal/: Yes: Other (L Nephrectomy) Musculoskeletal: Yes: Chronic low back pain Endocrine: Yes: Diabetes Mellitus, Other (Adrenal Insufficiency) Dermatology: Yes: Melanoma (diffuse and s/p multiple therapies) - Past Surgical History Past Surgical History: Yes: Cholecystectomy - Alcohol/Substance Use Hx Alcohol Use: No - Smoking History Smoking history: Unknown if ever smoked Have you smoked in the past 12 months: No Aproximately how many cigarettes per day: 0 If you are a former smoker, when did you quit?: 18 years ago - Social History Usual Living Arrangement: With Spouse ADL: Independent 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 History of Recent Travel: No Home Medications - Allergies Allergies/Adverse Reactions: Allergies Allergy/AdvReac Type Severity Reaction Status Date / Time codeine [Codeine] AdvReac Severe abd pain Verified 03/27/19 06:56 morphine AdvReac Severe Verified 03/27/19 06:56 - Home Medications Home Medications: Ambulatory Orders Budesonide/Formoterol Fumarate [Symbicort 160-4.5 Mcg Inhaler] 1 ih IH BID 11/07 Metoprolol Succinate [Toprol XL -] 50 mg PO HS 12/09/15 metFORMIN HCL [Metformin ER Osmotic] 500 mg PO DAILY 12/09/15 Ascorbic Acid [Vitamin C -] 100 mg PO DAILY 04/09/16 Ferrous Sulfate [Feosol] 325 mg PO DAILY 04/09/16 Gabapentin [Neurontin] 600 mg PO TID 04/09/16 Metoprolol Succinate [Toprol XL -] 100 mg PO AM 04/09/16 Digoxin [Lanoxin -] 0.25 mg PO DAILY #30 tablet 04/12/16 Prednisone 5 mg PO AM 10/18/16 Repaglinide [Prandin -] 1 mg PO BID 10/18/16 predniSONE [Deltasone -] 2.5 mg PO HS 10/18/16 Levalbuterol Tartrate [Xopenex Hfa] 15 gm IH PRN PRN 02/15/18 Alprazolam [Xanax] 0.25 mg PO Q8H PRN 03/27/19 Rosuvastatin Calcium [Crestor] 5 mg PO DAILY 03/27/19 Family Disease History - Family Disease History Family Disease History: Diabetes: Father, CA: Son (melanoma) Review of Systems - Review of Systems Constitutional: reports: Malaise, Weakness Eyes: reports: No Symptoms HENT: reports: No Symptoms Neck: reports: No Symptoms Cardiovascular: reports: Chest Pain, Palpitations Respiratory: reports: No Symptoms Gastrointestinal: reports: Diarrhea Genitourinary: reports: No Symptoms Breasts: reports: No Symptoms Reported Musculoskeletal: reports: Muscle Weakness Integumentary: reports: No Symptoms Neurological: reports: Dizziness, Headache Hematology/Lymphatic: reports: Easily Bruised Vital Signs: Vital Signs Temperature 97.7 F 03/27/19 12:45 Pulse Rate 105 H 03/27/19 15:04 Respiratory Rate 18 03/27/19 12:45 Blood Pressure 115/63 03/27/19 12:45 O2 Sat by Pulse Oximetry (%) 98 03/27/19 15:00 General: Well developed. Well nourished. No acute distress. Head: Normocephalic. Atraumatic, Eyes: PERRLA, EOMI. Sclerae anicteric. Conjunctivae clear. Neck: Supple. No JVD. No bruits. Heart: Normal S1, S2: Irregular rhythm and rate. No murmur. No gallop or rub. Lungs: Symmetrical air entry. Clear to auscultation. No crackle. No wheezing or rhonchi. Abdomen: Soft. Bowel sound positive. Non tender. No masses. Extremities: No edema. No clubbing or cyanosis. PD 2+, equal bilaterally. Neuro: Intact, no focal findings. AAO X3 - Other Data Labs, Other Data: CBC, BMP 03/27/19 08:45 03/27/19 08:45 INR, PTT INR 1.13 (0.83-1.09) H 03/27/19 08:45 Assessment/Plan 63year old man with a PMHx of HTN, DM, HLD, Afib, not on AC due to GI bleed and falls, stage 4 melanoma, s/p multiple prior surgeries including left kidney resection, s/p craniotomy 12/2017, thoracic vertebral surgery 01/2018 admitted with near syncope. The patient was found to have orthostatic hypotension. ECG shows atrial fibrillation/flutter at 75 BPM. However, telemetry reveals episodes of rapid VR , up to 160s BPM. Seen by GI, IV hydration and PPI recommended. CT scan of head unremarkable. Echo 04/06/2018 [facility]: LV size, thickness, and function are normal Mild MR/TR. 1) Near syncope likely secondary to orthostatic hypotension and rapid atrial fibrillation. -IV and oral hydration. -May liberate salt intake at this time. -Ventricular rate control as follows. 2) Persistent atrial fibrillation with episodes of rapid ventricular response. -Continue current dose of metoprolol succinate, low baseline BP prevents to titrate it up. -Continue digoxin. -Start Amiodarone 400 mg twice daily with meals for rate and possible rhythm control. -Not on AC due to GI bleeding and falls. He has risk of stroke with [id number]- VASc score of 2. I discussed his case with Dr. Cadet. We will follow the patient with you.
[2019-03-27] MEDS: METOCLOPRAMIDE HCL INJECTION 10 MG/2 ML VIAL IVPUSH SCH ×2 (18:35→22:53)
[2019-03-27] MEDS: SODIUM CHLORIDE 1,000 ML IV SCH (21:17)
[2019-03-27] MEDS ORDERED: ACETAMINOPHEN 325 MG TABLET (FP) PO PRN (21:50)
[2019-03-27] MEDS ORDERED: predniSONE 2.5 MG TABLET PO SCH (22:00)
[2019-03-27 22:45] LABS: CALCIUM 8.3 mg/dL (8.5-10.1); CREATININE 0.9 mg/dL (0.55-1.3); POTASSIUM 3.3 mmol/L (3.5-5.1)
[2019-03-27] MEDS: PANTOPRAZOLE SODIUM 40 MG VIAL IVPUSH SCH (22:50)
[2019-03-27] MEDS: GABAPENTIN 300 MG CAPSULE (FP) PO SCH (22:50)
[2019-03-27] MEDS: ROSUVASTATIN CA 5 MG TABLET (FP) PO SCH (22:50)
[2019-03-27] MEDS: ASCORBIC ACID 500 MG/5 ML UNIT DOSE CUP PO SCH (22:52)
[2019-03-27] MEDS: REPAGLINIDE 0.5 MG TABLET (FP) PO SCH (22:52)
[2019-03-27] MEDS ORDERED: POTASSIUM CHLORIDE TABS 20 MEQ TABLET.ER (FP) PO ONE (23:51)
[2019-03-28] MEDS: BUDESONIDE/FORMETEROL FUMARATE 160/4.5 mcg INHALER IH SCH ×3 (00:54→21:01)
[2019-03-28] MEDS: METOCLOPRAMIDE HCL INJECTION 10 MG/2 ML VIAL IVPUSH SCH ×4 (02:27→20:49)
[2019-03-28] MEDS: GABAPENTIN 300 MG CAPSULE (FP) PO SCH ×3 (05:54→21:01)
[2019-03-28] MEDS: predniSONE 5 MG TABLET (UD) PO SCH ×2 (06:03→21:03)
[2019-03-28] MEDS ORDERED: PT OWN MED DRAWER 7, Y5N ONE ×6 (06:11→16:49)
[2019-03-28 06:26] LABS: HEMATOCRIT 31.2 % (35.4-49); MCH 27.7 pg (25.7-33.7); MCHC 31.9 g/dl (32.0-35.9); MEAN CELL VOLUME 86.8 fl (80-96); MEAN PLT VOLUME 7.7 fl (7.5-11.1); PLATELET COUNT 273 K/MM3 (134-434); RBC 3.59 M/mm3 (4.00-5.60); RDW 19.7 % (11.9-15.9); WHITE BLOOD COUNT 11.3 K/mm3 (4.0-10.0)
[2019-03-28 06:45] LABS: ALBUMIN 2.5 g/dl (3.4-5.0); BILIRUBIN,TOTAL 0.7 mg/dL (0.2-1); BLOOD UREA NITROGEN 16.3 mg/dL (7-18); CALCIUM 8.4 mg/dL (8.5-10.1); POTASSIUM 3.9 mmol/L (3.5-5.1)
[2019-03-28] MEDS: REPAGLINIDE 0.5 MG TABLET (FP) PO SCH ×2 (08:26→16:54)
[2019-03-28] MEDS: SODIUM CHLORIDE 1,000 ML IV SCH ×3 (10:33→19:48)
[2019-03-28] MEDS: DIGOXIN 0.25 MG TABLET (FP) PO SCH (10:34)
[2019-03-28] MEDS: ASCORBIC ACID 500 MG/5 ML UNIT DOSE CUP PO SCH (10:35)
[2019-03-28] MEDS: PANTOPRAZOLE SODIUM 40 MG VIAL IVPUSH SCH ×2 (10:35→21:01)
[2019-03-28 14:12] VITALS: BMI 26.9
--- NOTE | 2019-03-28 14:46 | PN ---
Progress Note, Physician Chief Complaint: Cardiology FU Telem AF HR 70s Resolved dizziness. History of Present Illness: 63year old man with a PMHx of HTN, DM, HLD, Afib, not on AC due to GI bleed and falls, stage 4 melanoma, s/p multiple prior surgeries including left kidney resection, s/p craniotomy 12/2017, thoracic vertebral surgery 01/2018 admitted with near syncope. The patient reports an episode of a headache, nausea, and dizziness this morning , causing him to lose balance and catching himself on a table. He also reports intermittent palpitation and one episodes of left sided chest pain 2 days prior to the admission. He was dehydrated and had orthostatic hypotension. ECG shows atrial fibrillation /flutter at 75 BPM. Echo 04/06/2018 [facility]: LV size, thickness, and function are normal Mild MR/TR. - Current Medication List Current Medications: Active Medications Acetaminophen (Tylenol -) 650 mg PO Q12H PRN PRN Reason: FEVER Last Admin: 03/27/19 22:50 Dose: 650 mg Alprazolam (Xanax -) 0.25 mg PO Q8H PRN PRN Reason: ANXIETY Last Admin: 03/27/19 15:57 Dose: 0.25 mg Ascorbic Acid (Vitamin C Oral Solution -) 100 mg PO DAILY [facility] Last Admin: 03/28/19 10:35 Dose: 100 mg Budesonide/Formoterol Fumarate (Symbicort 160/4.5mcg -) 1 puff IH BID [facility] Last Admin: 03/28/19 10:36 Dose: 1 puff Digoxin (Lanoxin -) 0.25 mg PO DAILY [facility] Last Admin: 03/28/19 10:34 Dose: 0.25 mg Gabapentin (Neurontin -) 600 mg PO TID [facility] Last Admin: 03/28/19 14:25 Dose: 600 mg Sodium Chloride (Normal Saline -) 1,000 mls @ 75 mls/hr IV ASDIR [facility] Last Admin: 03/28/19 10:33 Dose: 75 mls/hr Metformin HCl (Glucophage Xr -) 500 mg PO ACBK [facility] Last Admin: 03/28/19 06:03 Dose: 500 mg Metoclopramide HCl (Reglan Injection -) 10 mg IVPUSH Q6H-IV [facility] Last Admin: 03/28/19 14:26 Dose: 10 mg Metoprolol Succinate (Toprol Xl -) 50 mg PO HS [facility] Last Admin: 03/27/19 22:51 Dose: 50 mg Metoprolol Succinate (Toprol Xl -) 100 mg PO AM [facility] Last Admin: 03/28/19 06:04 Dose: 100 mg Pantoprazole Sodium (Protonix Iv) 40 mg IVPUSH BID [facility] Last Admin: 03/28/19 10:35 Dose: 40 mg Prednisone (Deltasone -) 5 mg PO AM [facility] Last Admin: 03/28/19 06:03 Dose: 5 mg Prednisone (Deltasone -) 2.5 mg PO HS [facility] Repaglinide (Prandin -) 1 mg PO BIDWM [facility] Last Admin: 03/28/19 08:26 Dose: 1 mg Rosuvastatin Calcium (Crestor -) 5 mg PO HS [facility] Last Admin: 03/27/19 22:50 Dose: 5 mg - Objective Vital Signs: Vital Signs Temperature 98.9 F 03/28/19 14:35 Pulse Rate 76 03/28/19 14:35 Respiratory Rate 20 03/28/19 14:35 Blood Pressure 106/50 L 03/28/19 14:35 O2 Sat by Pulse Oximetry (%) 95 03/28/19 09:00 Constitutional: Yes: Well Nourished, No Distress Eyes: Yes: Conjunctiva Clear, EOM Intact HENT: Yes: Atraumatic, Normocephalic Neck: Yes: Supple, Trachea Midline Cardiovascular: Yes: Pulse Irregular, S1, S2. No: JVD Respiratory: Yes: Regular, CTA Bilaterally Edema: No Labs: CBC, BMP 03/28/19 05:40 03/28/19 05:40 INR, PTT INR 1.13 (0.83-1.09) H 03/27/19 08:45 Problem List - Problems (1) Atrial flutter Code(s): I48.92 - UNSPECIFIED ATRIAL FLUTTER Qualifiers: Atrial flutter type: unspecified Qualified Code(s): I48.92 - Unspecified atrial flutter (2) Dehydration Code(s): E86.0 - DEHYDRATION Assessment/Plan 63year old man with a PMHx of HTN, DM, HLD, Afib, not on AC due to GI bleed and falls, stage 4 melanoma, s/p multiple prior surgeries including left kidney resection, s/p craniotomy 12/2017, thoracic vertebral surgery 01/2018 admitted with near syncope and dehydration. 1) Near syncope likely secondary to orthostatic hypotension and dehydration. -Improved symptoms. -Encourage PO fluids. 2) Persistent atrial fibrillation with episodes of rapid ventricular response. -Continue current dose of metoprolol succinate 100AM 50 PM. -Continue digoxin. -HR is controlled once IVF given and pt volume status improved. -Not on AC due to GI bleeding and falls. He has risk of stroke with [id number]- VASc score of 2. We will sign off.
--- NOTE | 2019-03-28 16:35 | PN ---
Progress Note (short form) - Note Progress Note: ID CONSULT DICTATED FEVER S/P NEAR SYNCOPAL EPISODE ? SOURCE LEUKOCYTOSIS HX REMOVAL INFECTED OMAYA CATHETER P. ACNES S/P NEPHRECTONY STAGE IV MELANOMA CULTURES PENDING EMPIRIC CEFTRIAXONE
--- NOTE | 2019-03-28 16:43 | PN ---
Progress Note, Physician Chief Complaint: feels better; OOB to chair; LAURA at bedside, said he had some LLQ tenderness yesterday and low grade fever; has h/o diverticulitis in the past and metastatic melanoma for many years on IV ATB no pain today; ate OK - Current Medication List Current Medications: Active Medications Acetaminophen (Tylenol -) 650 mg PO Q12H PRN PRN Reason: FEVER Last Admin: 03/27/19 22:50 Dose: 650 mg Alprazolam (Xanax -) 0.25 mg PO Q8H PRN PRN Reason: ANXIETY Last Admin: 03/27/19 15:57 Dose: 0.25 mg Ascorbic Acid (Vitamin C Oral Solution -) 100 mg PO DAILY [facility] Last Admin: 03/28/19 10:35 Dose: 100 mg Budesonide/Formoterol Fumarate (Symbicort 160/4.5mcg -) 1 puff IH BID [facility] Last Admin: 03/28/19 10:36 Dose: 1 puff Digoxin (Lanoxin -) 0.25 mg PO DAILY [facility] Last Admin: 03/28/19 10:34 Dose: 0.25 mg Gabapentin (Neurontin -) 600 mg PO TID [facility] Last Admin: 03/28/19 14:25 Dose: 600 mg Sodium Chloride (Normal Saline -) 1,000 mls @ 75 mls/hr IV ASDIR [facility] Last Admin: 03/28/19 10:33 Dose: 75 mls/hr Ceftriaxone Sodium 1 gm/ (Dextrose) 50 mls @ 100 mls/hr IVPB DAILY [facility]; Protocol Metformin HCl (Glucophage Xr -) 500 mg PO ACBK [facility] Last Admin: 03/28/19 06:03 Dose: 500 mg Metoclopramide HCl (Reglan Injection -) 10 mg IVPUSH Q6H-IV [facility] Last Admin: 03/28/19 14:26 Dose: 10 mg Metoprolol Succinate (Toprol Xl -) 50 mg PO HS [facility] Last Admin: 03/27/19 22:51 Dose: 50 mg Metoprolol Succinate (Toprol Xl -) 100 mg PO AM [facility] Last Admin: 03/28/19 06:04 Dose: 100 mg Pantoprazole Sodium (Protonix Iv) 40 mg IVPUSH BID [facility] Last Admin: 03/28/19 10:35 Dose: 40 mg Prednisone (Deltasone -) 5 mg PO AM [facility] Last Admin: 03/28/19 06:03 Dose: 5 mg Prednisone (Deltasone -) 2.5 mg PO HS [facility] Repaglinide (Prandin -) 1 mg PO BIDWM [facility] Last Admin: 03/28/19 08:26 Dose: 1 mg Rosuvastatin Calcium (Crestor -) 5 mg PO HS [facility] Last Admin: 03/27/19 22:50 Dose: 5 mg - Objective Vital Signs: Vital Signs Temperature 98.9 F 03/28/19 14:35 Pulse Rate 76 03/28/19 14:35 Respiratory Rate 20 03/28/19 14:35 Blood Pressure 106/50 L 03/28/19 14:35 O2 Sat by Pulse Oximetry (%) 95 03/28/19 09:00 Constitutional: Yes: No Distress, Calm Eyes: Yes: Conjunctiva Clear HENT: Yes: Atraumatic Neck: Yes: Supple Cardiovascular: Yes: Regular Rate and Rhythm Respiratory: Yes: CTA Bilaterally Gastrointestinal: Yes: Soft. No: Tenderness Genitourinary: No: Hematuria Musculoskeletal: No: Joint Stiffness, Joint Swelling Extremities: No: Cold, Cool Edema: No Integumentary: No: Rash, Venous Stasis Changes Neurological: Yes: WNL, Alert, Oriented ...Motor Strength: WNL Psychiatric: Yes: WNL, Alert, Oriented. No: Agitated, Suicidal Ideation Labs: CBC, BMP 03/28/19 05:40 03/28/19 05:40 INR, PTT INR 1.13 (0.83-1.09) H 03/27/19 08:45 - ....Imaging Other: Report Reviewed Assessment/Plan The patient is a 63 year old male with a PMH of HTN, HLD, DM, Afib (not on anticoagulation), and stage four melanoma with metastasis to the brain s/p craniotomy and Ommaya catheter in January 2018 and mets to kidney s/p nephrectomy who presents s/p pre-syncopal episode, some LLQ tenderness and anemia with guaiac + stools labs, Cx f/u had low grade fever and has h/o diverticulitis in the past IV ATB per ID cardiology, GI f/u will get CAP CT r/o mass / abscess d.w pt and d/w staff
[2019-03-28] MEDS ORDERED: DEXTROSE 5%-WATER - 50 ML IVPB ONE (16:50)
[2019-03-28] MEDS ORDERED: cefTRIAXone SODIUM 1 GM VIAL ONE (16:50)
[2019-03-28] MEDS: CEFTRIAXONE 1 GM in DEXTROSE 5%-WATER - 50 ML IVPB SCH (17:56)
--- NOTE | 2019-03-28 19:08 | CONS ---
DATE OF CONSULTATION: DATE OF DICTATION: 03/28/2019 HISTORY OF PRESENT ILLNESS: The patient is a 63-year-old male with a history of stage 4 melanoma, evaluated for low-grade fever. The patient reports being well until the morning of March 27, 2019. He was feeding his dog when he suddenly felt a wave of nausea after smelling the dog food. He subsequently became dizzy and had a near syncopal episode. He reports collapsing into a [employer] cabinet. He denied any significant trauma. There were no reports of head trauma or loss of consciousness. He also complained of headache and dizziness. He was evaluated in the emergency room where a CAT scan of the head was negative for any acute changes. His course has been complicated by fever. Patient reports having a fever to 101 overnight. However according to the records, his highest temperature was 100.3. At the present time he is awake and alert. He feels much better. He has no focal complaint. He denies any chest pain, shortness of breath, cough, or sputum production. Denies dysuria or hematuria. No complaints of calf tenderness. The patient has a history of stage 4 melanoma with metastases to the brain and kidney. He was hospitalized on March of 2018 for a removal of an infected Ommaya catheter. At that time, cultures were positive for P. acnes. The catheter was removed, and he was treated with a course of IV antibiotics. Past medical history also includes hypertension, hyperlipidemia, diabetes mellitus, atrial fibrillation. PAST SURGICAL HISTORY: Status post craniectomy December 2017, nephrectomy, thoracic surgery. ALLERGIES: CODEINE and MORPHINE. MEDICATION: Include 2.5 mg of prednisone daily. His medications also include Toprol, metformin, Lanoxin, Xopenex. SOCIAL HISTORY: Lives at home with his significant other. Former smoker. LABORATORY DATA: White count on admission 9.2, presently 11.3. Hematocrit 31.2, platelets 273. BUN 16, creatinine 1.0. Liver enzymes normal. Urinalysis negative. Chest x-ray negative. Blood cultures pending. PHYSICAL EXAMINATION: General: On exam, he is awake and alert, out of bed to chair, in no acute distress. Vital signs: Temperature 98.9, T-max 100.3, blood pressure 106/56, pulse 76 regular, respirations 20 per minute. HEENT: Sclerae anicteric. There is a deformity present in the right skull corresponding to the craniectomy. Oropharynx negative. Cardiovascular: Heart sounds S1, S2. Lungs: Clear. Abdomen: Soft, nontender. Extremities: Negative Homans sign. IMPRESSION: 1. Fever, status post near syncopal episode. 2. Leukocytosis. 3. History of removal of infected Ommaya catheter. 4. Status post nephrectomy. 5. Stage 4 melanoma. Await cultures. Source of fever and leukocytosis not clear. However, in light of near syncopal episode, will empirically cover for infection with ceftriaxone 1 g IV piggyback every 24 hours. Further recommendations pending cultures. Will follow. Thank you for the kind referral. ANN REYNA M.D. [id number]
[2019-03-28] MEDS ORDERED: ALBUTEROL SO4 8 GM HFA INHALER IH PRN (20:17)
[2019-03-28] MEDS: ROSUVASTATIN CA 5 MG TABLET (FP) PO SCH (21:01)
--- NOTE | 2019-03-28 22:29 | PN.GI ---
GI Progress Note Subjective: GI Note: No further nausea. Tolerating solids. No GI complaints. Hb stable. Fever noted - Objective Vital Signs: Vital Signs Temperature 98.1 F 03/28/19 18:00 Pulse Rate 78 03/28/19 18:00 Respiratory Rate 19 03/28/19 18:00 Blood Pressure 128/82 03/28/19 18:00 O2 Sat by Pulse Oximetry (%) 95 03/28/19 09:00 Constitutional: No Distress, Mild Distress ...Auscultate: Yes: Normoactive Bowel Sounds ...Palpate: Yes: Soft, Other (nontender) Labs: CBC, BMP 03/28/19 05:40 03/28/19 05:40 INR, PTT INR 1.13 (0.83-1.09) H 03/27/19 08:45 Assessment/Plan Assessment: - The combination of rapidly resolved nausea, headache, diarrhea, dehydration and now fever favors a viral gastroenteritis - Occult bleeding is suspected to be chronic and from small bowel vascular ectasias however GI melanoma was not excluded by colonoscopic biopsies Plan: -- IV rehydration -- Switch Reglan to po -- Await CT and blood cultures Problem List - Problems (1) Gastroenteritis Code(s): K52.9 - NONINFECTIVE GASTROENTERITIS AND COLITIS, UNSPECIFIED (2) Nausea Code(s): R11.0 - NAUSEA (3) Occult blood in stools Code(s): R19.5 - OTHER FECAL ABNORMALITIES (4) Hernia of abdominal wall Code(s): K43.9 - VENTRAL HERNIA WITHOUT OBSTRUCTION OR GANGRENE (5) Near syncope Code(s): R55 - SYNCOPE AND COLLAPSE (6) Dehydration Code(s): E86.0 - DEHYDRATION (7) Atrial fibrillation Code(s): I48.91 - UNSPECIFIED ATRIAL FIBRILLATION Qualifiers: Atrial fibrillation type: unspecified Qualified Code(s): I48.91 - Unspecified atrial fibrillation (8) COPD (chronic obstructive pulmonary disease) Code(s): J44.9 - CHRONIC OBSTRUCTIVE PULMONARY DISEASE, UNSPECIFIED (9) Diabetes Code(s): E11.9 - TYPE 2 DIABETES MELLITUS WITHOUT COMPLICATIONS (10) Headache Code(s): R51 - HEADACHE (11) Intracranial mass Code(s): R90.0 - INTCRN SPACE-OCCUPYING LESION FOUND ON DX IMAGING OF CNSL (12) Metastatic melanoma Code(s): C79.9 - SECONDARY MALIGNANT NEOPLASM OF UNSPECIFIED SITE (13) Atrial flutter Code(s): I48.92 - UNSPECIFIED ATRIAL FLUTTER Qualifiers: Atrial flutter type: unspecified Qualified Code(s): I48.92 - Unspecified atrial flutter
[2019-03-29] MEDS: GABAPENTIN 300 MG CAPSULE (FP) PO SCH ×3 (06:08→21:16)
[2019-03-29] MEDS: predniSONE 5 MG TABLET (UD) PO SCH ×2 (06:08→21:16)
[2019-03-29] MEDS: METOCLOPRAMIDE HCL 10 MG TABLET (FP) PO SCH ×3 (06:08→17:12)
[2019-03-29 08:08] LABS: BASO % 0.8 % (0-2.0); EOS % 1.4 % (0-4.5); HEMOGLOBIN 8.7 GM/dL (11.7-16.9); MCH 28.1 pg (25.7-33.7); MCHC 32.3 g/dl (32.0-35.9); MEAN CELL VOLUME 87.2 fl (80-96); MEAN PLT VOLUME 8.1 fl (7.5-11.1); MONO % 7.6 % (3.8-10.2); NEUT % 78.2 % (42.8-82.8); PLATELET COUNT 227 K/MM3 (134-434); RBC 3.09 M/mm3 (4.00-5.60); RDW 19.6 % (11.9-15.9); WHITE BLOOD COUNT 7.4 K/mm3 (4.0-10.0)
[2019-03-29 08:09] LABS: ALBUMIN 2.3 g/dl (3.4-5.0); BILIRUBIN,TOTAL 0.2 mg/dL (0.2-1); BLOOD UREA NITROGEN 17.5 mg/dL (7-18); CALCIUM 8.3 mg/dL (8.5-10.1); CREATININE 0.9 mg/dL (0.55-1.3); POTASSIUM 3.9 mmol/L (3.5-5.1)
[2019-03-29] MEDS: REPAGLINIDE 0.5 MG TABLET (FP) PO SCH ×2 (09:00→17:12)
[2019-03-29] MEDS ORDERED: PANTOPRAZOLE 40 MG TABLET (FP) PO SCH (10:00)
--- NOTE | 2019-03-29 10:38 | PN ---
Progress Note, Physician Chief Complaint: OOB to chair awaiting CT scans to be done no c/o feels better afebrile ate OK wants to go home - Current Medication List Current Medications: Active Medications Acetaminophen (Tylenol -) 650 mg PO Q12H PRN PRN Reason: FEVER Last Admin: 03/27/19 22:50 Dose: 650 mg Alprazolam (Xanax -) 0.25 mg PO Q8H PRN PRN Reason: ANXIETY Last Admin: 03/27/19 15:57 Dose: 0.25 mg Ascorbic Acid (Vitamin C Oral Solution -) 100 mg PO DAILY [facility] Last Admin: 03/28/19 10:35 Dose: 100 mg Budesonide/Formoterol Fumarate (Symbicort 160/4.5mcg -) 1 puff IH BID [facility] Last Admin: 03/28/19 21:01 Dose: 1 puff Digoxin (Lanoxin -) 0.25 mg PO DAILY [facility] Last Admin: 03/28/19 10:34 Dose: 0.25 mg Gabapentin (Neurontin -) 600 mg PO TID [facility] Last Admin: 03/29/19 06:08 Dose: 600 mg Sodium Chloride (Normal Saline -) 1,000 mls @ 75 mls/hr IV ASDIR [facility] Last Admin: 03/28/19 19:48 Dose: Not Given Ceftriaxone Sodium 1 gm/ (Dextrose) 50 mls @ 100 mls/hr IVPB DAILY [facility]; Protocol Last Admin: 03/28/19 17:56 Dose: 100 mls/hr Metformin HCl (Glucophage Xr -) 500 mg PO ACBK [facility] Last Admin: 03/29/19 06:07 Dose: Not Given Metoclopramide HCl (Reglan -) 10 mg PO TIDAC [facility] Last Admin: 03/29/19 06:08 Dose: 10 mg Metoprolol Succinate (Toprol Xl -) 50 mg PO HS [facility] Last Admin: 03/28/19 21:03 Dose: Not Given Metoprolol Succinate (Toprol Xl -) 100 mg PO AM [facility] Last Admin: 03/29/19 06:08 Dose: 100 mg Non-Formulary Medication (Levalbuterol Tartrate [Xopenex Hfa]) 15 gm IH PRN PRN PRN Reason: ASTHMA Pantoprazole Sodium (Protonix -) 40 mg PO DAILY [facility] Prednisone (Deltasone -) 5 mg PO AM [facility] Last Admin: 03/29/19 06:08 Dose: 5 mg Prednisone (Deltasone -) 2.5 mg PO HS [facility] Last Admin: 03/28/19 21:03 Dose: 2.5 mg Repaglinide (Prandin -) 1 mg PO BIDWM [facility] Last Admin: 03/28/19 16:54 Dose: 1 mg Rosuvastatin Calcium (Crestor -) 5 mg PO HS [facility] Last Admin: 03/28/19 21:01 Dose: 5 mg - Objective Vital Signs: Vital Signs Temperature 98.0 F 03/29/19 09:15 Pulse Rate 68 03/29/19 09:15 Respiratory Rate 18 03/29/19 09:15 Blood Pressure 112/60 03/29/19 09:15 O2 Sat by Pulse Oximetry (%) 96 03/28/19 21:00 Constitutional: Yes: No Distress, Calm Eyes: Yes: Conjunctiva Clear HENT: Yes: Atraumatic Neck: Yes: Supple Cardiovascular: Yes: Regular Rate and Rhythm Respiratory: Yes: CTA Bilaterally Gastrointestinal: Yes: Soft. No: Tenderness Genitourinary: No: Hematuria Musculoskeletal: No: Joint Stiffness, Joint Swelling Extremities: No: Cold, Cool Edema: No Integumentary: No: Rash, Venous Stasis Changes Neurological: Yes: WNL, Alert, Oriented ...Motor Strength: WNL Psychiatric: Yes: WNL, Alert, Oriented. 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
[2019-03-29] MEDS ORDERED: cefTRIAXone SODIUM 1 GM VIAL ONE (10:41)
[2019-03-29] MEDS ORDERED: DEXTROSE 5%-WATER - 50 ML IVPB ONE (10:41)
[2019-03-29] MEDS ORDERED: PT OWN MED DRAWER 7, Y5N ONE ×6 (10:44→17:17)
[2019-03-29] MEDS: ASCORBIC ACID 500 MG/5 ML UNIT DOSE CUP PO SCH (10:56)
[2019-03-29] MEDS: BUDESONIDE/FORMETEROL FUMARATE 160/4.5 mcg INHALER IH SCH ×2 (10:57→21:16)
[2019-03-29] MEDS: DIGOXIN 0.25 MG TABLET (FP) PO SCH (11:05)
--- NOTE | 2019-03-29 12:32 | PN ---
Progress Note, Physician History of Present Illness: AWAKE, ALERT OOB IN CHAIR NO COMPLAINTS TEMPS, WBC DOWN BC NO GROWTH - Current Medication List Current Medications: Active Medications Acetaminophen (Tylenol -) 650 mg PO Q12H PRN PRN Reason: FEVER Last Admin: 03/27/19 22:50 Dose: 650 mg Alprazolam (Xanax -) 0.25 mg PO Q8H PRN PRN Reason: ANXIETY Last Admin: 03/27/19 15:57 Dose: 0.25 mg Ascorbic Acid (Vitamin C Oral Solution -) 100 mg PO DAILY [facility] Last Admin: 03/29/19 10:56 Dose: 100 mg Budesonide/Formoterol Fumarate (Symbicort 160/4.5mcg -) 1 puff IH BID [facility] Last Admin: 03/29/19 10:57 Dose: 1 puff Digoxin (Lanoxin -) 0.25 mg PO DAILY [facility] Last Admin: 03/29/19 11:05 Dose: 0.25 mg Gabapentin (Neurontin -) 600 mg PO TID [facility] Last Admin: 03/29/19 06:08 Dose: 600 mg Sodium Chloride (Normal Saline -) 1,000 mls @ 75 mls/hr IV ASDIR [facility] Last Admin: 03/28/19 19:48 Dose: Not Given Ceftriaxone Sodium 1 gm/ (Dextrose) 50 mls @ 100 mls/hr IVPB DAILY [facility]; Protocol Last Admin: 03/28/19 17:56 Dose: 100 mls/hr Metformin HCl (Glucophage Xr -) 500 mg PO ACBK [facility] Last Admin: 03/29/19 06:07 Dose: Not Given Metoclopramide HCl (Reglan -) 10 mg PO TIDAC [facility] Last Admin: 03/29/19 10:56 Dose: 10 mg Metoprolol Succinate (Toprol Xl -) 50 mg PO HS [facility] Last Admin: 03/28/19 21:03 Dose: Not Given Metoprolol Succinate (Toprol Xl -) 100 mg PO AM [facility] Last Admin: 03/29/19 06:08 Dose: 100 mg Non-Formulary Medication (Levalbuterol Tartrate [Xopenex Hfa]) 15 gm IH PRN PRN PRN Reason: ASTHMA Pantoprazole Sodium (Protonix -) 40 mg PO DAILY@0800 [facility] Prednisone (Deltasone -) 5 mg PO AM [facility] Last Admin: 03/29/19 06:08 Dose: 5 mg Prednisone (Deltasone -) 2.5 mg PO HS [facility] Last Admin: 03/28/19 21:03 Dose: 2.5 mg Repaglinide (Prandin -) 1 mg PO BIDWM [facility] Last Admin: 03/28/19 16:54 Dose: 1 mg Rosuvastatin Calcium (Crestor -) 5 mg PO HS [facility] Last Admin: 03/28/19 21:01 Dose: 5 mg - Objective Vital Signs: Vital Signs Temperature 98.0 F 03/29/19 09:15 Pulse Rate 68 03/29/19 11:05 Respiratory Rate 18 03/29/19 09:15 Blood Pressure 112/60 03/29/19 09:15 O2 Sat by Pulse Oximetry (%) 96 03/29/19 09:00 Constitutional: Yes: No Distress Eyes: Yes: Conjunctiva Clear Cardiovascular: Yes: Regular Rate and Rhythm, S1, S2 Respiratory: Yes: CTA Bilaterally Gastrointestinal: Yes: Normal Bowel Sounds, Soft. No: Tenderness Edema: No Labs: CBC, BMP 03/29/19 06:30 03/29/19 06:30 INR, PTT INR 1.13 (0.83-1.09) H 03/27/19 08:45 Assessment/Plan FEVER/ LEUKOCYTOSIS IMPROVED S/P NEAR SYNCOPE STAGE IV MELANOMA S/P NEPHRECTOMY IF TEMPS/ WBC REMAIN DOWN, CULTURES NEGATIVE D/C ANTIBIOTICS
[2019-03-29] MEDS: PANTOPRAZOLE 40 MG TABLET (FP) PO SCH (12:58)
[2019-03-29] MEDS: SODIUM CHLORIDE 1,000 ML IV SCH ×2 (14:04→21:13)
[2019-03-29] MEDS: CEFTRIAXONE 1 GM in DEXTROSE 5%-WATER - 50 ML IVPB SCH (14:05)
--- NOTE | 2019-03-29 14:58 | PN.GI ---
GI Progress Note Subjective: GI NOte: Tolerating diet. No diarrhea. Had formed BM. No pain,. BC no growth - Objective Vital Signs: Vital Signs Temperature 98.0 F 03/29/19 09:15 Pulse Rate 68 03/29/19 11:05 Respiratory Rate 18 03/29/19 09:15 Blood Pressure 112/60 03/29/19 09:15 O2 Sat by Pulse Oximetry (%) 96 03/29/19 09:00 Constitutional: Calm ...Auscultate: Yes: Normoactive Bowel Sounds ...Palpate: Yes: Soft, Other (nontender) Labs: CBC, BMP 03/29/19 06:30 03/29/19 06:30 INR, PTT INR 1.13 (0.83-1.09) H 03/27/19 08:45 Assessment/Plan Assessment: - Resolving viral gastroenteritis - Occult bleeding is suspected to be chronic and from small bowel vascular ectasias however GI melanoma was not excluded by colonoscopic biopsies Plan: -- IV rehydration -- Will stop Reglan. Can resume if necessary for postviral or diabetic gastroparesis -- Await CT reading Dr Valdovinos will be covering this weekend Problem List - Problems (1) Gastroenteritis Code(s): K52.9 - NONINFECTIVE GASTROENTERITIS AND COLITIS, UNSPECIFIED (2) Nausea Code(s): R11.0 - NAUSEA (3) Occult blood in stools Code(s): R19.5 - OTHER FECAL ABNORMALITIES (4) Hernia of abdominal wall Code(s): K43.9 - VENTRAL HERNIA WITHOUT OBSTRUCTION OR GANGRENE (5) Near syncope Code(s): R55 - SYNCOPE AND COLLAPSE (6) Dehydration Code(s): E86.0 - DEHYDRATION (7) Atrial fibrillation Code(s): I48.91 - UNSPECIFIED ATRIAL FIBRILLATION Qualifiers: Atrial fibrillation type: unspecified Qualified Code(s): I48.91 - Unspecified atrial fibrillation (8) COPD (chronic obstructive pulmonary disease) Code(s): J44.9 - CHRONIC OBSTRUCTIVE PULMONARY DISEASE, UNSPECIFIED (9) Diabetes Code(s): E11.9 - TYPE 2 DIABETES MELLITUS WITHOUT COMPLICATIONS (10) Headache Code(s): R51 - HEADACHE (11) Intracranial mass Code(s): R90.0 - INTCRN SPACE-OCCUPYING LESION FOUND ON DX IMAGING OF CNSL (12) Metastatic melanoma Code(s): C79.9 - SECONDARY MALIGNANT NEOPLASM OF UNSPECIFIED SITE (13) Atrial flutter Code(s): I48.92 - UNSPECIFIED ATRIAL FLUTTER Qualifiers: Atrial flutter type: unspecified Qualified Code(s): I48.92 - Unspecified atrial flutter
[2019-03-29] MEDS: ROSUVASTATIN CA 5 MG TABLET (FP) PO SCH (21:16)
[2019-03-30] MEDS: GABAPENTIN 300 MG CAPSULE (FP) PO SCH ×3 (05:58→21:21)
[2019-03-30] MEDS: predniSONE 5 MG TABLET (UD) PO SCH ×2 (05:59→21:21)
[2019-03-30] MEDS: METOCLOPRAMIDE HCL 10 MG TABLET (FP) PO SCH ×3 (05:59→17:16)
[2019-03-30] MEDS ORDERED: cefTRIAXone SODIUM 1 GM VIAL ONE (08:43)
[2019-03-30] MEDS ORDERED: PT OWN MED DRAWER 7, Y5N ONE ×3 (08:43→17:13)
[2019-03-30] MEDS ORDERED: DEXTROSE 5%-WATER - 50 ML IVPB ONE (08:44)
[2019-03-30] MEDS: REPAGLINIDE 0.5 MG TABLET (FP) PO SCH ×2 (09:03→17:16)
[2019-03-30] MEDS: ASCORBIC ACID 500 MG/5 ML UNIT DOSE CUP PO SCH (09:04)
[2019-03-30] MEDS: PANTOPRAZOLE 40 MG TABLET (FP) PO SCH (09:04)
[2019-03-30] MEDS: ALPRAZolam 0.25 MG TABLET PO PRN (09:05)
[2019-03-30] MEDS: BUDESONIDE/FORMETEROL FUMARATE 160/4.5 mcg INHALER IH SCH ×2 (09:06→21:22)
[2019-03-30] MEDS: CEFTRIAXONE 1 GM in DEXTROSE 5%-WATER - 50 ML IVPB SCH (09:07)
[2019-03-30 10:33] LABS: HEMATOCRIT 28.4 % (35.4-49); MCH 27.6 pg (25.7-33.7); MCHC 31.6 g/dl (32.0-35.9); MEAN CELL VOLUME 87.3 fl (80-96); PLATELET COUNT 222 K/MM3 (134-434); RBC 3.26 M/mm3 (4.00-5.60); RDW 19.1 % (11.9-15.9); WHITE BLOOD COUNT 5.5 K/mm3 (4.0-10.0)
[2019-03-30 11:01] LABS: ALBUMIN 2.4 g/dl (3.4-5.0); BILIRUBIN,TOTAL 0.3 mg/dL (0.2-1); BLOOD UREA NITROGEN 17.1 mg/dL (7-18); CALCIUM 8.4 mg/dL (8.5-10.1); POTASSIUM 4.4 mmol/L (3.5-5.1); TOT PROT 5.3 g/dl (6.4-8.2)
[2019-03-30 11:27] LABS: INR 1.08 (0.83-1.09); PROTHROMBIN TIME (PATIENT) 12.8 SEC (9.7-13.0)
[2019-03-30 11:30] LABS: ACTIVATED PTT 29.7 SECONDS (25.2-36.5)
[2019-03-30] MEDS: DIGOXIN 0.25 MG TABLET (FP) PO SCH (11:46)
--- NOTE | 2019-03-30 13:01 | PN ---
Progress Note, Physician History of Present Illness: Pt wants to eat. Pt w/o fever, chills, Nausea, vomiting, SOB, CP, palpitations - Current Medication List Current Medications: Active Medications Acetaminophen (Tylenol -) 650 mg PO Q12H PRN PRN Reason: FEVER Last Admin: 03/27/19 22:50 Dose: 650 mg Albuterol Sulfate (Ventolin Hfa Inhaler -) 2 puff IH Q4H PRN PRN Reason: SHORTNESS OF BREATH/WHEEZING Alprazolam (Xanax -) 0.25 mg PO Q8H PRN PRN Reason: ANXIETY Last Admin: 03/30/19 09:05 Dose: 0.25 mg Ascorbic Acid (Vitamin C Oral Solution -) 100 mg PO DAILY [facility] Last Admin: 03/30/19 09:04 Dose: 100 mg Budesonide/Formoterol Fumarate (Symbicort 160/4.5mcg -) 1 puff IH BID [facility] Last Admin: 03/30/19 09:06 Dose: 1 puff Digoxin (Lanoxin -) 0.25 mg PO DAILY [facility] Last Admin: 03/30/19 11:46 Dose: 0.25 mg Gabapentin (Neurontin -) 600 mg PO TID [facility] Last Admin: 03/30/19 05:58 Dose: 600 mg Sodium Chloride (Normal Saline -) 1,000 mls @ 75 mls/hr IV ASDIR [facility] Last Admin: 03/29/19 21:13 Dose: Not Given Ceftriaxone Sodium 1 gm/ (Dextrose) 50 mls @ 100 mls/hr IVPB DAILY [facility]; Protocol Last Admin: 03/30/19 09:07 Dose: 100 mls/hr Metformin HCl (Glucophage Xr -) 500 mg PO ACBK [facility] Last Admin: 03/30/19 06:00 Dose: 500 mg Metoclopramide HCl (Reglan -) 10 mg PO TIDAC [facility] Last Admin: 03/30/19 11:46 Dose: 10 mg Metoprolol Succinate (Toprol Xl -) 50 mg PO HS [facility] Last Admin: 03/29/19 21:16 Dose: 50 mg Metoprolol Succinate (Toprol Xl -) 100 mg PO AM [facility] Last Admin: 03/30/19 05:59 Dose: 100 mg Pantoprazole Sodium (Protonix -) 40 mg PO DAILY@0800 [facility] Last Admin: 03/30/19 09:04 Dose: 40 mg Prednisone (Deltasone -) 5 mg PO AM [facility] Last Admin: 03/30/19 05:59 Dose: 5 mg Prednisone (Deltasone -) 2.5 mg PO HS [facility] Last Admin: 03/29/19 21:16 Dose: 2.5 mg Repaglinide (Prandin -) 1 mg PO BIDWM [facility] Last Admin: 03/30/19 09:03 Dose: 1 mg Rosuvastatin Calcium (Crestor -) 5 mg PO HS [facility] Last Admin: 03/29/19 21:16 Dose: 5 mg - Objective Vital Signs: Vital Signs Temperature 98 F 03/30/19 10:00 Pulse Rate 60 03/30/19 11:46 Respiratory Rate 20 03/30/19 10:00 Blood Pressure 133/63 03/30/19 10:00 O2 Sat by Pulse Oximetry (%) 97 03/29/19 21:00 Constitutional: Yes: No Distress, Anxious Cardiovascular: Yes: Regular Rate and Rhythm, S1, S2 Respiratory: Yes: Regular, CTA Bilaterally Gastrointestinal: Yes: Normal Bowel Sounds, Soft. No: Tenderness, Rebound Edema: No Neurological: Yes: Alert, Oriented Labs: CBC, BMP 03/30/19 10:16 03/30/19 10:16 INR, PTT INR 1.08 (0.83-1.09) 03/30/19 10:16 - ....Imaging Cat Scan: Report Reviewed Problem List - Problems (1) Atrial fibrillation with RVR Code(s): I48.91 - UNSPECIFIED ATRIAL FIBRILLATION (2) Near syncope Code(s): R55 - SYNCOPE AND COLLAPSE (3) Occult blood in stools Code(s): R19.5 - OTHER FECAL ABNORMALITIES (4) Anemia Code(s): D64.9 - ANEMIA, UNSPECIFIED Qualifiers: Anemia type: unspecified type Qualified Code(s): D64.9 - Anemia, unspecified (5) Dehydration Code(s): E86.0 - DEHYDRATION (6) Metastatic melanoma Code(s): C79.9 - SECONDARY MALIGNANT NEOPLASM OF UNSPECIFIED SITE (7) Abdominal abscess Code(s): [id number] - (8) Perforated bowel Code(s): K63.1 - PERFORATION OF INTESTINE (NONTRAUMATIC) Assessment/Plan NPO Surgical consult, case was d/w Dr Chad Wang IR consult, case was reviewed with Dr Bennett Case was d/w Dr García, at bedside; at add Flagyl. To f/u with GI Pt's condition was d/w pt and his (at bedside) AM labs
--- NOTE | 2019-03-30 13:54 | PN ---
Progress Note (short form) - Note Progress Note: no more fevers now NPO ct scan findings noted- eroded tumor?- collection with air/fluid/contrast Left upper pelvis +adenopathy Vital Signs Period Temp Pulse Resp BP Sys/Betancourt Pulse Ox Last 24 Hr 98 F-99.2 F 60-83 16-20 110-133/58-68 97-97 cor-rrr lungs clear abd soft,nt ext no edema CBC, BMP 03/30/19 10:16 03/30/19 10:16 Microbiology 03/28/19 11:25 Blood - Peripheral Venous Blood Culture - Preliminary NO GROWTH OBTAINED AFTER 48 HOURS, INCUBATION TO CONTINUE FOR 3 DAYS. 03/28/19 11:32 Blood - Peripheral Venous Blood Culture - Preliminary NO GROWTH OBTAINED AFTER 48 HOURS, INCUBATION TO CONTINUE FOR 3 DAYS. 03/28/19 17:20 Urine - Urine Clean Catch Urine Culture - Final NO GROWTH OBTAINED a/p possible intraabdominal abscess/infected tumor- continue rocephin, add flagyl surgery to evaluate d/w dr Amos stage 4 melanoma solitary kidney
--- NOTE | 2019-03-30 15:21 | PN ---
GI Progress Note Subjective: aked to review ctscan, history of stage IV melanoma, s/p multiple surgeries, h/ o PET CT with a small focus in the abdomen previously CT reviewed, interval mass compared to 2017,new finding of 10cm mass possibly involving the small bowel and compromising the small bowel intralumenally There is no signs of infection and obstruction - Objective Vital Signs: Vital Signs Temperature 98 F 03/30/19 10:00 Pulse Rate 60 03/30/19 11:46 Respiratory Rate 20 03/30/19 10:00 Blood Pressure 133/63 03/30/19 10:00 O2 Sat by Pulse Oximetry (%) 97 03/30/19 09:00 Constitutional: Well Nourished Eyes: Yes: Conjunctiva Clear HENT: Yes: Atraumatic Neck: Yes: Supple Cardiovascular: Yes: Regular Rate and Rhythm Respiratory: Yes: CTA Bilaterally ...Palpate: Yes: Soft. No: Firm/Rigid, Guarding, Hepatomegaly, Mass, Pulsatile Mass, Tenderness Labs: CBC, BMP 03/30/19 10:16 03/30/19 10:16 INR, PTT INR 1.08 (0.83-1.09) 03/30/19 10:16 Problem List - Problems (1) Neoplasm of small intestine Assessment/Plan: --most likely meleanoma R> may have clear liquids in the absence of obstruction will need diagnostic laparoscopy to obtain a tissue diagnosis oncology cosult Code(s): D49.0 - NEOPLASM OF UNSPECIFIED BEHAVIOR OF DIGESTIVE SYSTEM
--- NOTE | 2019-03-30 16:59 | CONSULT ---
Consult Consult Specialty:: Medical Oncology Reason for Consultation:: Possible recurrence of melanoma - History of Present Illness Chief Complaint: Dizziness History of Present Illness: 63 y/o gentleman with a PMHx of HTN, DM, HLD, Afib, not on AC due to GI bleed and falls, stage 4 melanoma, s/p multiple prior surgeries including left kidney resection, s/p craniotomy 12/2017, thoracic vertebral surgery 01/2018 admitted with near syncope. Mentioned also L chest pain. He had orthostatic hypotension, Afib/flutter with episodes of VR per cardiology note. He has been living with melanoma for more than 13 years. He was treated by Dr. Quintana at [facility] initially with ipilimumab (Yervoy) with severe complications including colitis, rash, steroid-induced psychosis and later with pembrolizumab (Keytruda) also with multiple complications. 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 S/P Ipi+Pembro (not concurrent)) Musculoskeletal: Yes: Chronic low back pain Endocrine: Yes: Diabetes Mellitus, Other (Adrenal Insufficiency) Dermatology: Yes: Melanoma (diffuse and s/p multiple therapies) - Past Surgical History Past Surgical History: Yes: Cholecystectomy, Nephrectomy (Left) - Alcohol/Substance Use Hx Alcohol Use: No - Smoking History Smoking history: Unknown if ever smoked Have you smoked in the past 12 months: No Aproximately how many cigarettes per day: 0 If you are a former smoker, when did you quit?: 18 years ago - Social History Usual Living Arrangement: With Spouse ADL: Independent 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 History of Recent Travel: No Home Medications - Allergies Allergies/Adverse Reactions: Allergies Allergy/AdvReac Type Severity Reaction Status Date / Time codeine [Codeine] AdvReac Severe abd pain Verified 03/27/19 06:56 morphine AdvReac Severe Verified 03/27/19 06:56 - Home Medications Home Medications: Ambulatory Orders Budesonide/Formoterol Fumarate [Symbicort 160-4.5 Mcg Inhaler] 1 ih IH BID 11/07 Metoprolol Succinate [Toprol XL -] 50 mg PO HS 12/09/15 metFORMIN HCL [Metformin ER Osmotic] 500 mg PO DAILY 12/09/15 Ascorbic Acid [Vitamin C -] 100 mg PO DAILY 04/09/16 Ferrous Sulfate [Feosol] 325 mg PO DAILY 04/09/16 Gabapentin [Neurontin] 600 mg PO TID 04/09/16 Metoprolol Succinate [Toprol XL -] 100 mg PO AM 04/09/16 Digoxin [Lanoxin -] 0.25 mg PO DAILY #30 tablet 04/12/16 Prednisone 5 mg PO AM 10/18/16 Repaglinide [Prandin -] 1 mg PO BID 10/18/16 predniSONE [Deltasone -] 2.5 mg PO HS 10/18/16 Levalbuterol Tartrate [Xopenex Hfa] 15 gm IH PRN PRN 02/15/18 Alprazolam [Xanax] 0.25 mg PO Q8H PRN 03/27/19 Rosuvastatin Calcium [Crestor] 5 mg PO DAILY 03/27/19 Review of Systems - Review of Systems Constitutional: reports: No Symptoms, Unintentional Wgt. Loss (Had weight loss ~ 50 lb), Weakness Eyes: reports: No Symptoms HENT: reports: No Symptoms Neck: reports: No Symptoms Cardiovascular: reports: No Symptoms, Chest Pain Respiratory: reports: No Symptoms, Cough Gastrointestinal: reports: No Symptoms Genitourinary: reports: No Symptoms, Hematuria Breasts: reports: No Symptoms Reported Musculoskeletal: reports: No Symptoms Integumentary: reports: No Symptoms Neurological: reports: Dizziness (Pre-syncopal event) Endocrine: reports: No Symptoms Hematology/Lymphatic: reports: No Symptoms Psychiatric: reports: No Symptoms Physical Exam Vital Signs: Vital Signs Temperature 98.6 F 03/30/19 14:20 Pulse Rate 50 L 03/30/19 14:20 Respiratory Rate 18 03/30/19 14:20 Blood Pressure 121/65 03/30/19 14:20 O2 Sat by Pulse Oximetry (%) 97 03/30/19 09:00 Constitutional: Yes: Well Nourished, No Distress, Calm Eyes: Yes: WNL, Conjunctiva Clear HENT: Yes: WNL, Atraumatic, Normocephalic Neck: Yes: WNL, Supple, Trachea Midline Cardiovascular: Yes: WNL, Regular Rate and Rhythm, Pulse Irregular Respiratory: Yes: WNL, Regular, CTA Bilaterally Gastrointestinal: Yes: Normal Bowel Sounds, Soft ...Rectal Exam: Yes: Deferred Renal/: Yes: WNL Musculoskeletal: Yes: WNL Extremities: Yes: WNL Integumentary: Yes: WNL ...Motor Strength: LLE (Weaknes 3/5) Psychiatric: Yes: WNL, Alert, Oriented Labs: CBC, BMP 03/30/19 10:16 03/30/19 10:16 Problem List - Problems (1) Metastatic melanoma Code(s): C79.9 - SECONDARY MALIGNANT NEOPLASM OF UNSPECIFIED SITE Assessment/Plan 63 y/o gentleman with metastatic melanoma for 13 year presenting with dizziness , L chest pain and found to have a 10 cm X 9 cm X 5 cm mass in his upper pelvis / abdomen, suspicious for disease relapse. Also with a retroperitoneal lymph node conglomerate. Recommend: 1) R/O Melanoma relapse: Agree with surgery consultation 2) Upon either debulking surgery or biopsy, if disease is confirmed patient expressed preference to continue his oncology care here at [facility] with Dr. Collins and Dr. Sutherland rather than going back to the [facility] [place] [facility]. Daughter ( also an RN as her mother), expressing preference for surgical/local treatment given severe prior complications. Radiation can also be considered. Multiple novel therapeutic options including targeted agents and immunotherapies are also available. Multidisciplinary tumor board conference after surgical evaluation. 3) Thank you for this consultation.
[2019-03-30] MEDS: SODIUM CHLORIDE 1,000 ML IV SCH (17:23)
[2019-03-30] MEDS: ROSUVASTATIN CA 5 MG TABLET (FP) PO SCH (21:21)
[2019-03-31] MEDS: predniSONE 5 MG TABLET (UD) PO SCH ×2 (06:03→21:37)
[2019-03-31] MEDS: METOCLOPRAMIDE HCL 10 MG TABLET (FP) PO SCH ×3 (06:03→17:07)
[2019-03-31] MEDS: GABAPENTIN 300 MG CAPSULE (FP) PO SCH ×3 (06:03→21:37)
[2019-03-31 07:08] LABS: BASO % 0.8 % (0-2.0); EOS % 2.1 % (0-4.5); HEMATOCRIT 26.9 % (35.4-49); HEMOGLOBIN 8.7 GM/dL (11.7-16.9); LYMPH % 16.7 % (8-40); MCH 27.8 pg (25.7-33.7); MCHC 32.5 g/dl (32.0-35.9); MEAN CELL VOLUME 85.6 fl (80-96); MEAN PLT VOLUME 7.9 fl (7.5-11.1); NEUT % 73.4 % (42.8-82.8); PLATELET COUNT 258 K/MM3 (134-434); RBC 3.14 M/mm3 (4.00-5.60); RDW 19.5 % (11.9-15.9); WHITE BLOOD COUNT 5.9 K/mm3 (4.0-10.0)
[2019-03-31 07:25] LABS: ALBUMIN 2.5 g/dl (3.4-5.0); BILIRUBIN,TOTAL 0.6 mg/dL (0.2-1); BLOOD UREA NITROGEN 10.7 mg/dL (7-18); CALCIUM 8.4 mg/dL (8.5-10.1); CREATININE 0.8 mg/dL (0.55-1.3); POTASSIUM 3.9 mmol/L (3.5-5.1); TOT PROT 5.2 g/dl (6.4-8.2)
[2019-03-31] MEDS ORDERED: PT OWN MED DRAWER 7, Y5N ONE ×2 (08:01→17:35)
[2019-03-31] MEDS: REPAGLINIDE 0.5 MG TABLET (FP) PO SCH ×2 (08:44→17:07)
[2019-03-31] MEDS: SODIUM CHLORIDE 1,000 ML IV SCH ×2 (08:44→21:37)
[2019-03-31] MEDS: PANTOPRAZOLE 40 MG TABLET (FP) PO SCH (08:44)
[2019-03-31] MEDS ORDERED: cefTRIAXone SODIUM 1 GM VIAL ONE (08:59)
[2019-03-31] MEDS ORDERED: DEXTROSE 5%-WATER - 50 ML IVPB ONE (08:59)
[2019-03-31] MEDS: DIGOXIN 0.25 MG TABLET (FP) PO SCH (09:31)
[2019-03-31] MEDS: CEFTRIAXONE 1 GM in DEXTROSE 5%-WATER - 50 ML IVPB SCH (09:31)
[2019-03-31] MEDS: ASCORBIC ACID 500 MG/5 ML UNIT DOSE CUP PO SCH (09:32)
[2019-03-31] MEDS: BUDESONIDE/FORMETEROL FUMARATE 160/4.5 mcg INHALER IH SCH ×2 (09:33→21:37)
[2019-03-31 09:50] LABS: ERYTHROCYTE SEDIMENTATION RATE 81 mm/hr (0-20)
--- NOTE | 2019-03-31 12:54 | PN ---
Progress Note, Physician History of Present Illness: Pt is tolerating clear liquids well, no abd pain, nausea,no vomitting Pt w/o fever, chills, SOB, CP, palpitations - Current Medication List Current Medications: Active Medications Acetaminophen (Tylenol -) 650 mg PO Q12H PRN PRN Reason: FEVER Last Admin: 03/27/19 22:50 Dose: 650 mg Albuterol Sulfate (Ventolin Hfa Inhaler -) 2 puff IH Q4H PRN PRN Reason: SHORTNESS OF BREATH/WHEEZING Alprazolam (Xanax -) 0.25 mg PO Q6H PRN PRN Reason: ANXIETY Ascorbic Acid (Vitamin C Oral Solution -) 100 mg PO DAILY [facility] Last Admin: 03/31/19 09:32 Dose: 100 mg Budesonide/Formoterol Fumarate (Symbicort 160/4.5mcg -) 1 puff IH BID [facility] Last Admin: 03/31/19 09:33 Dose: 1 puff Digoxin (Lanoxin -) 0.25 mg PO DAILY [facility] Last Admin: 03/31/19 09:31 Dose: 0.25 mg Gabapentin (Neurontin -) 600 mg PO TID [facility] Last Admin: 03/31/19 06:03 Dose: 600 mg Sodium Chloride (Normal Saline -) 1,000 mls @ 75 mls/hr IV ASDIR [facility] Last Admin: 03/31/19 08:44 Dose: 75 mls/hr Ceftriaxone Sodium 1 gm/ (Dextrose) 50 mls @ 100 mls/hr IVPB DAILY [facility]; Protocol Last Admin: 03/31/19 09:31 Dose: 100 mls/hr Metronidazole (Flagyl 500mg Premixed Ivpb -) 500 mg in 100 mls @ 100 mls/hr IVPB Q8H-IV [facility] Last Admin: 03/31/19 09:31 Dose: 100 mls/hr Metformin HCl (Glucophage Xr -) 500 mg PO ACBK [facility] Last Admin: 03/31/19 06:03 Dose: 500 mg Metoclopramide HCl (Reglan -) 10 mg PO TIDAC [facility] Last Admin: 03/31/19 11:29 Dose: 10 mg Metoprolol Succinate (Toprol Xl -) 50 mg PO HS [facility] Last Admin: 03/30/19 21:18 Dose: Not Given Metoprolol Succinate (Toprol Xl -) 100 mg PO AM [facility] Last Admin: 03/31/19 06:03 Dose: 100 mg Pantoprazole Sodium (Protonix -) 40 mg PO DAILY@0800 [facility] Last Admin: 03/31/19 08:44 Dose: 40 mg Prednisone (Deltasone -) 5 mg PO AM [facility] Last Admin: 03/31/19 06:03 Dose: 5 mg Prednisone (Deltasone -) 2.5 mg PO HS [facility] Last Admin: 03/30/19 21:21 Dose: 2.5 mg Repaglinide (Prandin -) 1 mg PO BIDWM [facility] Last Admin: 03/31/19 08:44 Dose: 1 mg Rosuvastatin Calcium (Crestor -) 5 mg PO [facility] Last Admin: 03/30/19 21:21 Dose: 5 mg - Objective Vital Signs: Vital Signs Temperature 98 F 03/31/19 10:00 Pulse Rate 64 03/31/19 10:00 Respiratory Rate 18 03/31/19 10:00 Blood Pressure 109/58 L 03/31/19 10:00 O2 Sat by Pulse Oximetry (%) 97 03/30/19 20:37 Constitutional: Yes: No Distress, Calm Cardiovascular: Yes: Regular Rate and Rhythm, S1, S2 Respiratory: Yes: Regular, CTA Bilaterally Gastrointestinal: Yes: Normal Bowel Sounds, Soft. No: Tenderness, Tenderness, Rebound Edema: No Neurological: Yes: Alert, Oriented Labs: CBC, BMP 03/31/19 06:31 03/31/19 06:31 INR, PTT INR 1.08 (0.83-1.09) 03/30/19 10:16 Problem List - Problems (1) Atrial fibrillation with RVR Code(s): I48.91 - UNSPECIFIED ATRIAL FIBRILLATION (2) Near syncope Code(s): R55 - SYNCOPE AND COLLAPSE (3) Occult blood in stools Code(s): R19.5 - OTHER FECAL ABNORMALITIES (4) Anemia Code(s): D64.9 - ANEMIA, UNSPECIFIED Qualifiers: Anemia type: unspecified type Qualified Code(s): D64.9 - Anemia, unspecified (5) Dehydration Code(s): E86.0 - DEHYDRATION (6) Metastatic melanoma Code(s): C79.9 - SECONDARY MALIGNANT NEOPLASM OF UNSPECIFIED SITE (7) Abdominal abscess Code(s): BGY9477 - (8) Perforated bowel Code(s): K63.1 - PERFORATION OF INTESTINE (NONTRAUMATIC) Assessment/Plan Clear liquids IV abtx Surgical consult IR consult ID, GI, Onco consults are appreciated AM labs
[2019-03-31] MEDS: ALPRAZolam 0.25 MG TABLET PO PRN ×2 (15:12→22:15)
--- NOTE | 2019-03-31 15:22 | PN ---
Progress Note (short form) - Note Progress Note: 63 y/o gentleman with a PMHx of HTN, DM, HLD, Afib, not on AC due to GI bleed and falls, stage 4 melanoma, s/p multiple prior surgeries including left kidney resection, s/p craniotomy 12/2017, thoracic vertebral surgery 01/2018 admitted with near syncope. Mentioned also L chest pain. He had orthostatic hypotension, Afib/flutter with episodes of VR per cardiology note. He has been living with melanoma for more than 13 years. He was treated by Dr. Quintana at [facility] initially with ipilimumab (Yervoy) with severe complications including colitis, rash, steroid-induced psychosis and later with pembrolizumab (Keytruda) also with multiple complications. Nevertheless, he went from being very sick with physician-predicted 2 month survival to more than 3.5 years disease free until this presentation Visit of 03/31: Doing well, voices no complaints. Feels better. Awaiting for surgical consultation. Reinforcing that they prefer to stay here than to go to the city. ROS: 14 point elicited in detail and negative or as per above Current Medications Acetaminophen (Tylenol -) 650 mg PO Q12H PRN PRN Reason: FEVER Last Admin: 03/27/19 22:50 Dose: 650 mg Albuterol Sulfate (Ventolin Hfa Inhaler -) 2 puff IH Q4H PRN PRN Reason: SHORTNESS OF BREATH/WHEEZING Alprazolam (Xanax -) 0.25 mg PO Q6H PRN PRN Reason: ANXIETY Last Admin: 03/31/19 15:12 Dose: 0.25 mg Ascorbic Acid (Vitamin C Oral Solution -) 100 mg PO DAILY [facility] Last Admin: 03/31/19 09:32 Dose: 100 mg Budesonide/Formoterol Fumarate (Symbicort 160/4.5mcg -) 1 puff IH BID [facility] Last Admin: 03/31/19 09:33 Dose: 1 puff Digoxin (Lanoxin -) 0.25 mg PO DAILY [facility] Last Admin: 03/31/19 09:31 Dose: 0.25 mg Gabapentin (Neurontin -) 600 mg PO TID [facility] Last Admin: 03/31/19 13:08 Dose: 600 mg Sodium Chloride (Normal Saline -) 1,000 mls @ 75 mls/hr IV ASDIR [facility] Last Admin: 03/31/19 08:44 Dose: 75 mls/hr Ceftriaxone Sodium 1 gm/ (Dextrose) 50 mls @ 100 mls/hr IVPB DAILY [facility]; Protocol Last Admin: 03/31/19 09:31 Dose: 100 mls/hr Metronidazole (Flagyl 500mg Premixed Ivpb -) 500 mg in 100 mls @ 100 mls/hr IVPB Q8H-IV [facility] Last Admin: 03/31/19 09:31 Dose: 100 mls/hr Metformin HCl (Glucophage Xr -) 500 mg PO ACBK [facility] Last Admin: 03/31/19 06:03 Dose: 500 mg Metoclopramide HCl (Reglan -) 10 mg PO TIDAC [facility] Last Admin: 03/31/19 11:29 Dose: 10 mg Metoprolol Succinate (Toprol Xl -) 50 mg PO HS [facility] Last Admin: 03/30/19 21:18 Dose: Not Given Metoprolol Succinate (Toprol Xl -) 100 mg PO AM [facility] Last Admin: 03/31/19 06:03 Dose: 100 mg Pantoprazole Sodium (Protonix -) 40 mg PO DAILY@0800 [facility] Last Admin: 03/31/19 08:44 Dose: 40 mg Prednisone (Deltasone -) 5 mg PO AM [facility] Last Admin: 03/31/19 06:03 Dose: 5 mg Prednisone (Deltasone -) 2.5 mg PO HS [facility] Last Admin: 03/30/19 21:21 Dose: 2.5 mg Repaglinide (Prandin -) 1 mg PO BIDWM [facility] Last Admin: 03/31/19 08:44 Dose: 1 mg Rosuvastatin Calcium (Crestor -) 5 mg PO [facility] Last Admin: 03/30/19 21:21 Dose: 5 mg Physical Exam Last Vital Signs Temp Pulse Resp BP Pulse Ox 98.0 F 64 20 111/57 L 97 03/31/19 13:10 03/31/19 13:10 03/31/19 13:10 03/31/19 13:10 03/31/19 09:00 Constitutional: Yes: Well Nourished, No Distress, Calm Eyes: Yes: WNL, Conjunctiva Clear HENT: Yes: WNL, Atraumatic, Normocephalic Neck: Yes: WNL, Supple, Trachea Midline Cardiovascular: Yes: WNL, Regular Rate and Rhythm, Pulse Irregular Respiratory: Yes: WNL, Regular, CTA Bilaterally Gastrointestinal: Yes: Normal Bowel Sounds, Soft ...Rectal Exam: Yes: Deferred Renal/: Yes: WNL Musculoskeletal: Yes: WNL Extremities: Yes: WNL Integumentary: Yes: WNL ...Motor Strength: LLE (Weaknes 3/5) Psychiatric: Yes: WNL, Alert, Oriented 03/31/19 06:31 03/31/19 06:31 Problem List - Problems (1) Metastatic melanoma Code(s): C79.9 - SECONDARY MALIGNANT NEOPLASM OF UNSPECIFIED SITE Assessment/Plan 63 y/o gentleman with metastatic melanoma for 13 year presenting with dizziness , L chest pain and found to have a 10 cm X 9 cm X 5 cm mass in his upper pelvis / abdomen, suspicious for disease relapse. Also with a retroperitoneal lymph node conglomerate. Recommend: 1) R/O Melanoma relapse: Agree with surgery consultation. Pending 2) Upon either debulking surgery or biopsy, if disease is confirmed patient expressed preference to continue his oncology care here at [facility] with Dr. Collins and Dr. Sutherland rather than going back to the [facility]. Daughter ( also an RN as her mother), expressing preference for surgical/local treatment given severe prior complications. Radiation can also be considered. Multiple novel therapeutic options including targeted agents and immunotherapies are also available. Multidisciplinary tumor board conference after surgical evaluation. 3) Likely anemia of chronic disease/inflammatory +/- AMRIT component, present since 2016. Consider iron profile (Iron, TIBC, ferritin) Vit B12, reticulocyte count. Problem List - Problems (1) Metastatic melanoma Code(s): C79.9 - SECONDARY MALIGNANT NEOPLASM OF UNSPECIFIED SITE
[2019-03-31] MEDS: ROSUVASTATIN CA 5 MG TABLET (FP) PO SCH (21:37)
[2019-04-01 05:59] LABS: HEMATOCRIT 26.9 % (35.4-49); HEMOGLOBIN 8.6 GM/dL (11.7-16.9); MCH 27.5 pg (25.7-33.7); MCHC 31.9 g/dl (32.0-35.9); MEAN CELL VOLUME 86.2 fl (80-96); MEAN PLT VOLUME 8.7 fl (7.5-11.1); PLATELET COUNT 208 K/MM3 (134-434); RBC 3.12 M/mm3 (4.00-5.60); RDW 18.5 % (11.9-15.9); WHITE BLOOD COUNT 7.4 K/mm3 (4.0-10.0)
[2019-04-01] MEDS: GABAPENTIN 300 MG CAPSULE (FP) PO SCH ×3 (06:07→21:23)
[2019-04-01] MEDS: METOCLOPRAMIDE HCL 10 MG TABLET (FP) PO SCH ×3 (06:08→16:47)
[2019-04-01] MEDS: predniSONE 5 MG TABLET (UD) PO SCH ×2 (06:08→21:23)
[2019-04-01 06:26] LABS: ALBUMIN 2.4 g/dl (3.4-5.0); BILIRUBIN,TOTAL 0.2 mg/dL (0.2-1); BLOOD UREA NITROGEN 8.3 mg/dL (7-18); CALCIUM 8.5 mg/dL (8.5-10.1); CREATININE 0.8 mg/dL (0.55-1.3); POTASSIUM 4.1 mmol/L (3.5-5.1); TOT PROT 4.9 g/dl (6.4-8.2)
[2019-04-01] MEDS ORDERED: DEXTROSE 5%-WATER - 50 ML IVPB ONE (09:45)
[2019-04-01] MEDS ORDERED: cefTRIAXone SODIUM 1 GM VIAL ONE (09:45)
[2019-04-01] MEDS ORDERED: PT OWN MED DRAWER 7, Y5N ONE ×2 (09:45→16:22)
[2019-04-01] MEDS: PANTOPRAZOLE 40 MG TABLET (FP) PO SCH (09:55)
[2019-04-01] MEDS: DIGOXIN 0.25 MG TABLET (FP) PO SCH (09:55)
[2019-04-01] MEDS: REPAGLINIDE 0.5 MG TABLET (FP) PO SCH ×2 (09:57→16:47)
[2019-04-01] MEDS: ASCORBIC ACID 500 MG/5 ML UNIT DOSE CUP PO SCH (09:57)
[2019-04-01] MEDS: CEFTRIAXONE 1 GM in DEXTROSE 5%-WATER - 50 ML IVPB SCH (09:59)
[2019-04-01] MEDS: BUDESONIDE/FORMETEROL FUMARATE 160/4.5 mcg INHALER IH SCH ×2 (10:01→21:23)
--- NOTE | 2019-04-01 11:30 | CONS ---
DATE OF ADMISSION: 03/27/2019 DATE OF DICTATION: 03/31/2019 REFERRING PHYSICIAN: Cecille Amos MD REASON FOR CONSULTATION: Abdominal mass, abscess. BRIEF HISTORY: This is a 63-year-old gentleman who was admitted to the hospital with a near syncope and dizziness. At the time of admission, he was found to have multiple medical problems as well as undergoing a CAT scan that demonstrated a 10-cm abdominal finding. This abdominal finding had findings consistent with fluid, air, and contrast. The etiology of this is not clear at this time. Patient has no clinical signs of sepsis or abdominal pain. He did have a history of a weight loss of approximately 50 pounds over the past year and 10 pounds over the past month. PAST MEDICAL HISTORY: Significant for atrial fibrillation, asthma, COPD, hypertension, metastatic melanoma, status post interferon treatment, multiple excisions of implants. PAST SURGICAL HISTORY: Cholecystectomy and a left nephrectomy. MEDICATIONS: Refer to chart. ALLERGIES: CODEINE and MORPHINE. SOCIAL HISTORY: Patient denies tobacco and alcohol use. No history of drug use. PHYSICAL EXAMINATION: The abdomen is soft, nontender, nondistended. There is a large abdominal noted just to the left of the umbilicus and inferior to the umbilicus slightly. This corresponds most likely to the CT finding of a 10-cm intra-abdominal mass. He also has a left flank hernia from his left nephrectomy. IMPRESSION/PLAN: Left flank hernia, intra-abdominal mass, multitude of medical problems, history of metastatic melanoma. This is a 63-year-old gentleman who presented to the hospital with a near syncopal episode. His workup is notable for an intra-abdominal mass. Given the finding on CAT scan, it is apparent that this mass communicates with the bowel. Whether at this point since this has the appearance of fluid/abscess, I would recommend at least an initial attempt at percutaneous drainage of this lesion and further workup to determine if this is a metastatic implant of some sort. The patient, his , and myself had a very long conversation regarding the approach of percutaneous drainage and further workup versus exploratory laparotomy, resection of this mass, and possible ostomy of some sort. The patient is very adamant against having any type of ostomy and understands that if he does percutaneous drainage with further workup down the road there could be a delay in diagnosis of carcinoma. He understands this, and at this current point, he does not wish to have an operation and is accepting of a delay in diagnosis on the very worst end. Patient is scheduled for an attempt at an interventional drainage and potential biopsy of a solid lesion if noted at the time of intervention. If this cannot be attempted percutaneously then the patient will need a laparotomy for further evaluation and resolution of this mass and collection. We will be available to continue to follow with this patient. Further recommendations will be made after the interventional evaluation and possible drainage. Thank you for allowing me to participate in the care of your patient. KAYDEN LOGAN M.D. [id number] cc: MD Ayla Da Silva MD
[2019-04-01] MEDS: ALPRAZolam 0.25 MG TABLET PO PRN (13:03)
--- NOTE | 2019-04-01 13:41 | PN ---
Progress Note, Physician Chief Complaint: OOB to chair; Tyrone at bedside pt feels well no pain no fever had BM NL d/w them consults, tests and options of further w/u and treatment - Current Medication List Current Medications: Active Medications Acetaminophen (Tylenol -) 650 mg PO Q12H PRN PRN Reason: FEVER Last Admin: 03/27/19 22:50 Dose: 650 mg Albuterol Sulfate (Ventolin Hfa Inhaler -) 2 puff IH Q4H PRN PRN Reason: SHORTNESS OF BREATH/WHEEZING Alprazolam (Xanax -) 0.25 mg PO Q6H PRN PRN Reason: ANXIETY Last Admin: 04/01/19 13:03 Dose: 0.25 mg Ascorbic Acid (Vitamin C Oral Solution -) 100 mg PO DAILY [facility] Last Admin: 04/01/19 09:57 Dose: 100 mg Budesonide/Formoterol Fumarate (Symbicort 160/4.5mcg -) 1 puff IH BID [facility] Last Admin: 04/01/19 10:01 Dose: 1 puff Digoxin (Lanoxin -) 0.25 mg PO DAILY [facility] Last Admin: 04/01/19 09:55 Dose: 0.25 mg Gabapentin (Neurontin -) 600 mg PO TID [facility] Last Admin: 04/01/19 13:03 Dose: 600 mg Sodium Chloride (Normal Saline -) 1,000 mls @ 75 mls/hr IV ASDIR [facility] Last Admin: 03/31/19 21:37 Dose: Not Given Ceftriaxone Sodium 1 gm/ (Dextrose) 50 mls @ 100 mls/hr IVPB DAILY [facility]; Protocol Last Admin: 04/01/19 09:59 Dose: 100 mls/hr Metronidazole (Flagyl 500mg Premixed Ivpb -) 500 mg in 100 mls @ 100 mls/hr IVPB Q8H-IV [facility] Last Admin: 04/01/19 11:04 Dose: 100 mls/hr Metformin HCl (Glucophage Xr -) 500 mg PO ACBK [facility] Last Admin: 04/01/19 06:08 Dose: 500 mg Metoclopramide HCl (Reglan -) 10 mg PO TIDAC [facility] Last Admin: 04/01/19 11:48 Dose: 10 mg Metoprolol Succinate (Toprol Xl -) 50 mg PO HS [facility] Last Admin: 03/31/19 21:37 Dose: Not Given Metoprolol Succinate (Toprol Xl -) 100 mg PO AM [facility] Last Admin: 04/01/19 06:08 Dose: 100 mg Pantoprazole Sodium (Protonix -) 40 mg PO DAILY@0800 [facility] Last Admin: 04/01/19 09:55 Dose: 40 mg Prednisone (Deltasone -) 5 mg PO AM [facility] Last Admin: 04/01/19 06:08 Dose: 5 mg Prednisone (Deltasone -) 2.5 mg PO HS [facility] Last Admin: 03/31/19 21:37 Dose: 2.5 mg Repaglinide (Prandin -) 1 mg PO BIDWM [facility] Last Admin: 04/01/19 09:57 Dose: 1 mg Rosuvastatin Calcium (Crestor -) 5 mg PO [facility] Last Admin: 03/31/19 21:37 Dose: 5 mg - Objective Vital Signs: Vital Signs Temperature 98.0 F 04/01/19 13:38 Pulse Rate 86 04/01/19 13:38 Respiratory Rate 16 04/01/19 13:38 Blood Pressure 124/88 04/01/19 13:38 O2 Sat by Pulse Oximetry (%) 95 04/01/19 10:00 Constitutional: Yes: No Distress, Calm Eyes: Yes: Conjunctiva Clear HENT: Yes: Atraumatic Neck: Yes: Supple Cardiovascular: Yes: Regular Rate and Rhythm Respiratory: Yes: CTA Bilaterally. No: Rales Gastrointestinal: Yes: Soft. No: Tenderness Genitourinary: No: Hematuria Musculoskeletal: No: Joint Stiffness, Joint Swelling Extremities: No: Cold, Cool, Cyanosis Edema: No Integumentary: No: Rash, Venous Stasis Changes Neurological: Yes: WNL, Alert, Oriented ...Motor Strength: WNL Psychiatric: Yes: WNL, Alert, Oriented. No: Agitated, Suicidal Ideation Labs: CBC, BMP 04/01/19 05:25 04/01/19 05:25 INR, PTT INR 1.08 (0.83-1.09) 03/30/19 10:16 - ....Imaging Other: Report Reviewed Assessment/Plan The patient is a 63 year old male with a PMH of HTN, HLD, DM, Afib (not on anticoagulation), and stage four melanoma with metastasis to the brain s/p craniotomy and mets to kidney s/p nephrectomy admitted with a pre-syncopal episode, some LLQ tenderness and anemia with guaiac + stools abdomen CT c/w large mass with air fluid level communicating with the bowel d/w surgery dr Wang who reviewed CT with IR - best approach would be exploratory lap possible excision of the mas, drainage of the abscess, also diagnostic r/o CA / infection. IV ATB per ID; d.w cardio - preop eval dr Cadet check labs in am d.w pt and d/w staff
--- NOTE | 2019-04-01 14:42 | PN ---
Progress Note, Physician History of Present Illness: AWAKE, ALERT OOB IN CHAIR NO COMPLAINTS DENIES ABDOMINAL PAIN TOLERATING LIQUIDS TEMPS, WBC DOWN BC NO GROWTH - Current Medication List Current Medications: Active Medications Acetaminophen (Tylenol -) 650 mg PO Q12H PRN PRN Reason: FEVER Last Admin: 03/27/19 22:50 Dose: 650 mg Albuterol Sulfate (Ventolin Hfa Inhaler -) 2 puff IH Q4H PRN PRN Reason: SHORTNESS OF BREATH/WHEEZING Alprazolam (Xanax -) 0.25 mg PO Q6H PRN PRN Reason: ANXIETY Last Admin: 04/01/19 13:03 Dose: 0.25 mg Ascorbic Acid (Vitamin C Oral Solution -) 100 mg PO DAILY [facility] Last Admin: 04/01/19 09:57 Dose: 100 mg Budesonide/Formoterol Fumarate (Symbicort 160/4.5mcg -) 1 puff IH BID [facility] Last Admin: 04/01/19 10:01 Dose: 1 puff Digoxin (Lanoxin -) 0.25 mg PO DAILY [facility] Last Admin: 04/01/19 09:55 Dose: 0.25 mg Gabapentin (Neurontin -) 600 mg PO TID [facility] Last Admin: 04/01/19 13:03 Dose: 600 mg Sodium Chloride (Normal Saline -) 1,000 mls @ 75 mls/hr IV ASDIR [facility] Last Admin: 03/31/19 21:37 Dose: Not Given Ceftriaxone Sodium 1 gm/ (Dextrose) 50 mls @ 100 mls/hr IVPB DAILY [facility]; Protocol Last Admin: 04/01/19 09:59 Dose: 100 mls/hr Metronidazole (Flagyl 500mg Premixed Ivpb -) 500 mg in 100 mls @ 100 mls/hr IVPB Q8H-IV [facility] Last Admin: 04/01/19 11:04 Dose: 100 mls/hr Metformin HCl (Glucophage Xr -) 500 mg PO ACBK [facility] Last Admin: 04/01/19 06:08 Dose: 500 mg Metoclopramide HCl (Reglan -) 10 mg PO TIDAC [facility] Last Admin: 04/01/19 11:48 Dose: 10 mg Metoprolol Succinate (Toprol Xl -) 50 mg PO HS [facility] Last Admin: 03/31/19 21:37 Dose: Not Given Metoprolol Succinate (Toprol Xl -) 100 mg PO AM [facility] Last Admin: 04/01/19 06:08 Dose: 100 mg Pantoprazole Sodium (Protonix -) 40 mg PO DAILY@0800 [facility] Last Admin: 04/01/19 09:55 Dose: 40 mg Prednisone (Deltasone -) 5 mg PO AM [facility] Last Admin: 04/01/19 06:08 Dose: 5 mg Prednisone (Deltasone -) 2.5 mg PO HS [facility] Last Admin: 03/31/19 21:37 Dose: 2.5 mg Repaglinide (Prandin -) 1 mg PO BIDWM [facility] Last Admin: 04/01/19 09:57 Dose: 1 mg Rosuvastatin Calcium (Crestor -) 5 mg PO [facility] Last Admin: 03/31/19 21:37 Dose: 5 mg - Objective Vital Signs: Vital Signs Temperature 98.0 F 04/01/19 13:38 Pulse Rate 86 04/01/19 13:38 Respiratory Rate 16 04/01/19 13:38 Blood Pressure 124/88 04/01/19 13:38 O2 Sat by Pulse Oximetry (%) 95 04/01/19 10:00 Constitutional: Yes: No Distress Eyes: Yes: Conjunctiva Clear Cardiovascular: Yes: Regular Rate and Rhythm, S1, S2 Respiratory: Yes: CTA Bilaterally Gastrointestinal: Yes: Normal Bowel Sounds, Soft. No: Tenderness Edema: No Labs: CBC, BMP 04/01/19 05:25 04/01/19 05:25 INR, PTT INR 1.08 (0.83-1.09) 03/30/19 10:16 Assessment/Plan ? INTRA ABDOMINAL ABSCESS ? INFECTED TUMOR FEVER/ LEUKOCYTOSIS IMPROVED S/P NEAR SYNCOPE STAGE IV MELANOMA S/P NEPHRECTOMY CONTINUE EMPIRIC CEFTRIAXONE/ FLAGYL SURGICAL F/U
--- NOTE | 2019-04-01 16:43 | PN ---
Progress Note (short form) - Note Progress Note: Subjective: Patient seen and examined at bedside. No events overnight. No new complaints. Objective: Vital Signs Temperature 98.0 F 04/01/19 13:38 Pulse Rate 86 04/01/19 13:38 Respiratory Rate 16 04/01/19 13:38 Blood Pressure 124/88 04/01/19 13:38 O2 Sat by Pulse Oximetry (%) 95 04/01/19 10:00 PE: Gen: Patient sitting in wheelchair outside of his room. Patient responds in one word sentences and falls asleep during the interview. Cardio: regular rate and rhythm. S1, S2 heard. No murmurs, gallops, rubs Pulm: Lungs CTA b/l down to the bases. Abdomen: Soft, nontender, nondistended. Bowel sounds heard. Neuro: CN 2 -10 intact b/l. Patient A&O x3. Moving all 4 limbs spontaneously. CBC, BMP 04/01/19 05:25 04/01/19 05:25 Assessment & plan: The patient is a 63 y/o f w/ PMH metastatic melanoma who presented w/ dizziness , L chest pain and found to have a 10 cm X 9 cm X 5 cm mass in his abdomen w/ associated lymphadenopathy. #abdominal mass r/o disease recurrence -surgery consulted; patient is opting to pursue IR guided drainage/biopsy of mass -ID following #anemia -likely 2/2 AOCD -monitor CBC -maintain normal transfusion thresholds.
[2019-04-01] MEDS: ROSUVASTATIN CA 5 MG TABLET (FP) PO SCH (21:23)
--- NOTE | 2019-04-01 21:50 | PN ---
Progress Note (short form) - Note Progress Note: Patient seen and examined Denies any complaints AFVSS Cor: RSR, No murmurs, No gallops Lungs: Clear to P&A Abd: Soft, Normal bowel sounds, No organomegaly Ext:No significant edema Labs/meds reviewed a/p 63 y/o gentleman with metastatic melanoma for 13 year presenting with dizziness , L chest pain, rectal bleeding, profound wt. loss and found to have a 10 cm X 9 cm X 5 cm mass in his upper pelvis/ abdomen with connection to the bowel, suspicious for disease relapse. Also with a retroperitoneal lymph node conglomerate. exploratory lap possible resection of the mass, drainage of the abscess, per Dr.Lau GUARDADO ATB per ID; will follow
[2019-04-02] MEDS: SODIUM CHLORIDE 1,000 ML IV SCH (02:59)
[2019-04-02] MEDS: predniSONE 5 MG TABLET (UD) PO SCH ×2 (06:12→21:43)
[2019-04-02] MEDS: GABAPENTIN 300 MG CAPSULE (FP) PO SCH ×3 (06:12→21:42)
[2019-04-02] MEDS: METOCLOPRAMIDE HCL 10 MG TABLET (FP) PO SCH ×3 (06:12→16:48)
[2019-04-02 06:59] LABS: BASO % 1.1 % (0-2.0); HEMOGLOBIN 9.4 GM/dL (11.7-16.9); LYMPH % 14.4 % (8-40); MCHC 32.5 g/dl (32.0-35.9); MEAN CELL VOLUME 86.1 fl (80-96); MEAN PLT VOLUME 7.7 fl (7.5-11.1); MONO % 8.6 % (3.8-10.2); NEUT % 73.9 % (42.8-82.8); PLATELET COUNT 258 K/MM3 (134-434); RBC 3.37 M/mm3 (4.00-5.60); RDW 18.4 % (11.9-15.9); WHITE BLOOD COUNT 7.4 K/mm3 (4.0-10.0)
[2019-04-02 07:14] LABS: INR 1.18 (0.83-1.09); PROTHROMBIN TIME (PATIENT) 13.9 SEC (9.7-13.0)
[2019-04-02 07:16] LABS: ACTIVATED PTT 31.4 SECONDS (25.2-36.5)
[2019-04-02 07:28] LABS: ALBUMIN 2.5 g/dl (3.4-5.0); BILIRUBIN,TOTAL 0.4 mg/dL (0.2-1); BLOOD UREA NITROGEN 7.2 mg/dL (7-18); CALCIUM 8.2 mg/dL (8.5-10.1); CREATININE 0.9 mg/dL (0.55-1.3); POTASSIUM 3.9 mmol/L (3.5-5.1); TOT PROT 5.1 g/dl (6.4-8.2)
[2019-04-02] MEDS ORDERED: PT OWN MED DRAWER 7, Y5N ONE ×2 (08:50→16:46)
[2019-04-02] MEDS ORDERED: cefTRIAXone SODIUM 1 GM VIAL ONE (08:51)
[2019-04-02] MEDS ORDERED: DEXTROSE 5%-WATER - 50 ML IVPB ONE (08:52)
[2019-04-02] MEDS: REPAGLINIDE 0.5 MG TABLET (FP) PO SCH ×2 (08:58→16:48)
[2019-04-02] MEDS: PANTOPRAZOLE 40 MG TABLET (FP) PO SCH (08:58)
[2019-04-02] MEDS: CEFTRIAXONE 1 GM in DEXTROSE 5%-WATER - 50 ML IVPB SCH (09:24)
[2019-04-02] MEDS: DIGOXIN 0.25 MG TABLET (FP) PO SCH (09:25)
[2019-04-02] MEDS: BUDESONIDE/FORMETEROL FUMARATE 160/4.5 mcg INHALER IH SCH ×2 (09:26→21:43)
[2019-04-02] MEDS: ASCORBIC ACID 500 MG/5 ML UNIT DOSE CUP PO SCH (09:26)
--- NOTE | 2019-04-02 10:17 | PN ---
Progress Note, Physician History of Present Illness: asked to re-evaluate pt as he is planned for ex-lap and possible small bowel resection tomorrow. pt seen and examined today in nad. states he is feeling better since admission. no chest pain or sob. HR has been better controlled. - Current Medication List Current Medications: Active Medications Acetaminophen (Tylenol -) 650 mg PO Q12H PRN PRN Reason: FEVER Last Admin: 03/27/19 22:50 Dose: 650 mg Albuterol Sulfate (Ventolin Hfa Inhaler -) 2 puff IH Q4H PRN PRN Reason: SHORTNESS OF BREATH/WHEEZING Alprazolam (Xanax -) 0.25 mg PO Q6H PRN PRN Reason: ANXIETY Last Admin: 04/01/19 13:03 Dose: 0.25 mg Ascorbic Acid (Vitamin C Oral Solution -) 100 mg PO DAILY [facility] Last Admin: 04/02/19 09:26 Dose: 100 mg Budesonide/Formoterol Fumarate (Symbicort 160/4.5mcg -) 1 puff IH BID [facility] Last Admin: 04/02/19 09:26 Dose: 1 puff Digoxin (Lanoxin -) 0.25 mg PO DAILY [facility] Last Admin: 04/02/19 09:25 Dose: 0.25 mg Gabapentin (Neurontin -) 600 mg PO TID [facility] Last Admin: 04/02/19 06:12 Dose: 600 mg Sodium Chloride (Normal Saline -) 1,000 mls @ 75 mls/hr IV ASDIR [facility] Last Admin: 04/02/19 02:59 Dose: 75 mls/hr Ceftriaxone Sodium 1 gm/ (Dextrose) 50 mls @ 100 mls/hr IVPB DAILY [facility], [facility]; Protocol Last Admin: 04/02/19 09:24 Dose: 100 mls/hr Metronidazole (Flagyl 500mg Premixed Ivpb -) 500 mg in 100 mls @ 100 mls/hr IVPB Q8H-IV [facility] Last Admin: 04/02/19 01:44 Dose: 100 mls/hr Metformin HCl (Glucophage Xr -) 500 mg PO ACBK [facility] Last Admin: 04/02/19 06:12 Dose: 500 mg Metoclopramide HCl (Reglan -) 10 mg PO TIDAC [facility] Last Admin: 04/02/19 06:12 Dose: 10 mg Metoprolol Succinate (Toprol Xl -) 50 mg PO [facility] Last Admin: 04/01/19 21:24 Dose: Not Given Metoprolol Succinate (Toprol Xl -) 100 mg PO AM [facility] Last Admin: 04/02/19 06:12 Dose: 100 mg Pantoprazole Sodium (Protonix -) 40 mg PO DAILY@0800 [facility] Last Admin: 04/02/19 08:58 Dose: 40 mg Prednisone (Deltasone -) 5 mg PO AM [facility] Last Admin: 04/02/19 06:12 Dose: 5 mg Prednisone (Deltasone -) 2.5 mg PO [facility] Last Admin: 04/01/19 21:23 Dose: 2.5 mg Repaglinide (Prandin -) 1 mg PO BIDWM [facility] Last Admin: 04/02/19 08:58 Dose: 1 mg Rosuvastatin Calcium (Crestor -) 5 mg PO [facility] Last Admin: 04/01/19 21:23 Dose: 5 mg - Objective Vital Signs: Vital Signs Temperature 96.7 F L 04/02/19 06:17 Pulse Rate 87 04/02/19 09:25 Respiratory Rate 20 04/02/19 06:17 Blood Pressure 114/55 L 04/02/19 06:17 O2 Sat by Pulse Oximetry (%) 94 L 04/01/19 21:00 Constitutional: Yes: No Distress, Calm Eyes: Yes: Conjunctiva Clear, EOM Intact HENT: Yes: Atraumatic, Normocephalic Neck: Yes: Supple, Trachea Midline Cardiovascular: Yes: Pulse Irregular, S1, S2. No: Regular Rate and Rhythm, Bradycardia, Tachycardia, Bruit, JVD, Gallop, Murmur, Rub, S3, S4, Varicosities Respiratory: Yes: Regular, CTA Bilaterally. No: Rales, Rhonchi, SOB, Wheezes Gastrointestinal: Yes: Normal Bowel Sounds, Soft Extremities: Yes: WNL Edema: No Peripheral Pulses WNL: Yes Neurological: Yes: Alert, Oriented Psychiatric: Yes: Alert, Oriented Labs: CBC, BMP 04/02/19 06:36 04/02/19 06:36 INR, PTT INR 1.18 (0.83-1.09) H 04/02/19 06:36 - ....Imaging Chest X-ray: Report Reviewed, Image Reviewed EKG: Report Reviewed, Image Reviewed Other: Report Reviewed, Image Reviewed (tele-AF HR adequately controlled, intermittent periods of mild RVR) Assessment/Plan 63year old man with a PMHx of HTN, DM, HLD, Afib, not on AC due to GI bleed and falls, stage 4 melanoma, s/p multiple prior surgeries including left kidney resection, s/p craniotomy 12/2017, thoracic vertebral surgery 01/2018 admitted with near syncope and dehydration. Preop cardiovascular exam -planned for ex-lap with possible small bowel resection, possible colostomy -at this time there is no cardiac contraindication to the planned procedure and would recommend to proceed without delay for additional cardiac work up -cont current rate control regimen with Toprol and digoxin -if develops RVR can give extra doses of Lopressor IV prn as BP tolerates Near syncope likely secondary to orthostatic hypotension and dehydration. -Improved symptoms. -Encourage PO fluids. -IVF as needed Persistent atrial fibrillation with episodes of rapid ventricular response. -Continue current dose of metoprolol succinate 100AM 50 PM. -Continue digoxin. -HR is better controlled after IVF given and pt volume status improved. -Not on AC due to GI bleeding and falls. He has risk of stroke with [id number]- VASc score of 2.
--- NOTE | 2019-04-02 10:53 | SPA.PREOP ---
- PRE-OP NOTE Dx: inta abdominal mass Planned Procedure: exp laparotomy with possible small bowel resection/colostomy Surgeon: Last Vital Signs Temp Pulse Resp BP Pulse Ox 96.7 F L 87 20 114/55 L 94 L 04/02/19 06:17 04/02/19 09:25 04/02/19 06:17 04/02/19 06:17 04/01/19 21:00 Lab Results WBC 7.4 K/mm3 (4.0-10.0) 04/02/19 06:36 RBC 3.37 M/mm3 (4.00-5.60) L 04/02/19 06:36 Hgb 9.4 GM/dL (11.7-16.9) L 04/02/19 06:36 Hct 29.0 % (35.4-49) L 04/02/19 06:36 MCV 86.1 fl (80-96) 04/02/19 06:36 MCHC 32.5 g/dl (32.0-35.9) 04/02/19 06:36 RDW 18.4 % (11.9-15.9) H 04/02/19 06:36 Plt Count 258 K/MM3 (134-434) D 04/02/19 06:36 Sodium 141 mmol/L (136-145) 04/02/19 06:36 Potassium 3.9 mmol/L (3.5-5.1) 04/02/19 06:36 Chloride 105 mmol/L (98-107) 04/02/19 06:36 Carbon Dioxide 29 mmol/L (21-32) 04/02/19 06:36 Anion Gap 7 MMOL/L (8-16) L 04/02/19 06:36 BUN 7.2 mg/dL (7-18) 04/02/19 06:36 Creatinine 0.9 mg/dL (0.55-1.3) 04/02/19 06:36 Random Glucose 110 mg/dL (74-106) H 04/02/19 06:36 Calcium 8.2 mg/dL (8.5-10.1) L 04/02/19 06:36 Blood Type O POSITIVE 04/02/19 09:35 Antibody Screen Negative 04/02/19 09:35 INR 1.18 (0.83-1.09) H 04/02/19 06:36 - ASSESSMENT/PLAN 1. Make NPO after midnight except po meds 2. GI/DVT PPX 3. Medical optimization / clearance 4. Consent to be obtained by surgeon after risks, benefits and alternatives discussed with patient and or Health Care Proxy. Problem List - Problems (1) Metastatic melanoma Assessment/Plan: pt with a h/o of metastatic melanoma, now with inta-abd mass, most likely recurrent cancer Plan for OR tomorrow with Dr. Wang Npo after midnight, may take cardiac meds with sips of clears in the am Please clear medically/cardiac for tomorrow surgery T&S ordered today Code(s): C79.9 - SECONDARY MALIGNANT NEOPLASM OF UNSPECIFIED SITE
[2019-04-02] MEDS: ALPRAZolam 0.25 MG TABLET PO PRN ×2 (12:08→21:42)
--- NOTE | 2019-04-02 12:08 | PN ---
Progress Note, Physician History of Present Illness: Pt minimal abd discomfort, no appetite, no vomiting. + anxiety, OK with Xanax Pt w/o fever, chills, SOB, CP, palpitations - Current Medication List Current Medications: Active Medications Acetaminophen (Tylenol -) 650 mg PO Q12H PRN PRN Reason: FEVER Last Admin: 03/27/19 22:50 Dose: 650 mg Albuterol Sulfate (Ventolin Hfa Inhaler -) 2 puff IH Q4H PRN PRN Reason: SHORTNESS OF BREATH/WHEEZING Alprazolam (Xanax -) 0.25 mg PO Q6H PRN PRN Reason: ANXIETY Last Admin: 04/01/19 13:03 Dose: 0.25 mg Ascorbic Acid (Vitamin C Oral Solution -) 100 mg PO DAILY [facility] Last Admin: 04/02/19 09:26 Dose: 100 mg Budesonide/Formoterol Fumarate (Symbicort 160/4.5mcg -) 1 puff IH BID [facility] Last Admin: 04/02/19 09:26 Dose: 1 puff Digoxin (Lanoxin -) 0.25 mg PO DAILY [facility] Last Admin: 04/02/19 09:25 Dose: 0.25 mg Gabapentin (Neurontin -) 600 mg PO TID [facility] Last Admin: 04/02/19 06:12 Dose: 600 mg Sodium Chloride (Normal Saline -) 1,000 mls @ 75 mls/hr IV ASDIR [facility] Last Admin: 04/02/19 02:59 Dose: 75 mls/hr Ceftriaxone Sodium 1 gm/ (Dextrose) 50 mls @ 100 mls/hr IVPB DAILY [facility]; Protocol Last Admin: 04/02/19 09:24 Dose: 100 mls/hr Metronidazole (Flagyl 500mg Premixed Ivpb -) 500 mg in 100 mls @ 100 mls/hr IVPB Q8H-IV [facility] Last Admin: 04/02/19 10:30 Dose: 100 mls/hr Metformin HCl (Glucophage Xr -) 500 mg PO ACBK [facility] Last Admin: 04/02/19 06:12 Dose: 500 mg Metoclopramide HCl (Reglan -) 10 mg PO TIDAC [facility] Last Admin: 04/02/19 10:30 Dose: 10 mg Metoprolol Succinate (Toprol Xl -) 50 mg PO HS [facility] Last Admin: 04/01/19 21:24 Dose: Not Given Metoprolol Succinate (Toprol Xl -) 100 mg PO AM [facility] Last Admin: 04/02/19 06:12 Dose: 100 mg Pantoprazole Sodium (Protonix -) 40 mg PO DAILY@0800 [facility] Last Admin: 04/02/19 08:58 Dose: 40 mg Prednisone (Deltasone -) 5 mg PO AM [facility] Last Admin: 04/02/19 06:12 Dose: 5 mg Prednisone (Deltasone -) 2.5 mg PO HS [facility] Last Admin: 04/01/19 21:23 Dose: 2.5 mg Repaglinide (Prandin -) 1 mg PO BIDWM [facility] Last Admin: 04/02/19 08:58 Dose: 1 mg Rosuvastatin Calcium (Crestor -) 5 mg PO [facility] Last Admin: 04/01/19 21:23 Dose: 5 mg - Objective Vital Signs: Vital Signs Temperature 96.7 F L 04/02/19 06:17 Pulse Rate 87 04/02/19 09:25 Respiratory Rate 20 04/02/19 06:17 Blood Pressure 114/55 L 04/02/19 06:17 O2 Sat by Pulse Oximetry (%) 94 L 04/01/19 21:00 Constitutional: Yes: No Distress, Calm Cardiovascular: Yes: Regular Rate and Rhythm, S1, S2 Respiratory: Yes: Regular, CTA Bilaterally Gastrointestinal: Yes: Normal Bowel Sounds, Soft, Tenderness (minimal in LLQ). No: Palpable Mass, Pulsatile Mass, Tenderness, Rebound Neurological: Yes: Alert, Oriented Labs: CBC, BMP 04/02/19 06:36 04/02/19 06:36 INR, PTT INR 1.18 (0.83-1.09) H 04/02/19 06:36 Problem List - Problems (1) Atrial fibrillation with RVR Code(s): I48.91 - UNSPECIFIED ATRIAL FIBRILLATION (2) Near syncope Code(s): R55 - SYNCOPE AND COLLAPSE (3) Occult blood in stools Code(s): R19.5 - OTHER FECAL ABNORMALITIES (4) Anemia Code(s): D64.9 - ANEMIA, UNSPECIFIED Qualifiers: Anemia type: unspecified type Qualified Code(s): D64.9 - Anemia, unspecified (5) Dehydration Code(s): E86.0 - DEHYDRATION (6) Metastatic melanoma Code(s): C79.9 - SECONDARY MALIGNANT NEOPLASM OF UNSPECIFIED SITE (7) Abdominal abscess Code(s): NNL8495 - (8) Perforated bowel Code(s): K63.1 - PERFORATION OF INTESTINE (NONTRAUMATIC) Assessment/Plan Clear liquids IV abtx ID, GI, Onco, Surgical, IR consults are appreciated. Pt decided to go for Sx; Sx scheduled for AM AM labs
--- NOTE | 2019-04-02 15:06 | PN.GI ---
GI Progress Note Subjective: GI NOte: Cedrick has opted to have his abdominal mass surgically explored and hopefully resected. He anticipates that this is a recurrence of his melanoma and hopes that he will again respond to Keytruda. - Objective Vital Signs: Vital Signs Temperature 98.1 F 04/02/19 13:23 Pulse Rate 68 04/02/19 13:23 Respiratory Rate 16 04/02/19 13:23 Blood Pressure 110/57 L 04/02/19 13:23 O2 Sat by Pulse Oximetry (%) 95 04/02/19 10:00 Laboratory Tests 10/19/16 10/20/16 03/29/18 08:15 06:30 05:30 Hgb 14.5 12.8 D 10.8 L ESR 04/09/18 10/03/18 03/27/19 06:00 15:35 08:45 Hgb 11.0 L 11.7 10.1 L ESR 03/31/19 04/02/19 06:31 06:36 Hgb 9.4 L ESR 81 H Constitutional: Anxious ...Auscultate: Yes: Normoactive Bowel Sounds ...Palpate: Yes: Soft, Other (nontender) Labs: CBC, BMP 04/02/19 06:36 04/02/19 06:36 INR, PTT INR 1.18 (0.83-1.09) H 04/02/19 06:36 Assessment/Plan Assessment: - LLQ abdominal abscess recurrent melanoma vs. diverticular abscess Plan: -- Proceed with laparoscopy tomorrow to resect tumor vs abscess. Await results. Discussed case with Dr Amos Problem List - Problems (1) Abdominal abscess Code(s): DZX7455 - (2) Gastroenteritis Code(s): K52.9 - NONINFECTIVE GASTROENTERITIS AND COLITIS, UNSPECIFIED (3) Nausea Code(s): R11.0 - NAUSEA (4) Occult blood in stools Code(s): R19.5 - OTHER FECAL ABNORMALITIES (5) Hernia of abdominal wall Code(s): K43.9 - VENTRAL HERNIA WITHOUT OBSTRUCTION OR GANGRENE (6) Near syncope Code(s): R55 - SYNCOPE AND COLLAPSE (7) Dehydration Code(s): E86.0 - DEHYDRATION (8) Atrial fibrillation Code(s): I48.91 - UNSPECIFIED ATRIAL FIBRILLATION Qualifiers: Atrial fibrillation type: unspecified Qualified Code(s): I48.91 - Unspecified atrial fibrillation (9) COPD (chronic obstructive pulmonary disease) Code(s): J44.9 - CHRONIC OBSTRUCTIVE PULMONARY DISEASE, UNSPECIFIED (10) Diabetes Code(s): E11.9 - TYPE 2 DIABETES MELLITUS WITHOUT COMPLICATIONS (11) Headache Code(s): R51 - HEADACHE (12) Intracranial mass Code(s): R90.0 - INTCRN SPACE-OCCUPYING LESION FOUND ON DX IMAGING OF CNSL (13) Metastatic melanoma Code(s): C79.9 - SECONDARY MALIGNANT NEOPLASM OF UNSPECIFIED SITE (14) Atrial flutter Code(s): I48.92 - UNSPECIFIED ATRIAL FLUTTER Qualifiers: Atrial flutter type: unspecified Qualified Code(s): I48.92 - Unspecified atrial flutter (15) Metastatic melanoma Code(s): C79.9 - SECONDARY MALIGNANT NEOPLASM OF UNSPECIFIED SITE
--- NOTE | 2019-04-02 19:12 | PN ---
Progress Note (short form) - Note Progress Note: Patient seen. Off immunotherapy x 3+ years - Had 3 cycles of pembrolizumab and developed dermatitis as well as throat swelling requiring high dose steroids during last cycle. Scheduled for surgical exploration for abdominal mass and lymphadenopathy.
[2019-04-02] MEDS: ROSUVASTATIN CA 5 MG TABLET (FP) PO SCH (21:43)
[2019-04-03] MEDS: SODIUM CHLORIDE 1,000 ML IV SCH (01:25)
[2019-04-03 06:14] LABS: HEMATOCRIT 28.9 % (35.4-49); HEMOGLOBIN 9.3 GM/dL (11.7-16.9); MCH 27.6 pg (25.7-33.7); MCHC 32.3 g/dl (32.0-35.9); MEAN CELL VOLUME 85.6 fl (80-96); MEAN PLT VOLUME 7.8 fl (7.5-11.1); PLATELET COUNT 245 K/MM3 (134-434); RBC 3.37 M/mm3 (4.00-5.60); RDW 18.6 % (11.9-15.9); WHITE BLOOD COUNT 7.2 K/mm3 (4.0-10.0)
[2019-04-03] MEDS: METOCLOPRAMIDE HCL 10 MG TABLET (FP) PO SCH (06:16)
[2019-04-03] MEDS: predniSONE 5 MG TABLET (UD) PO SCH ×2 (06:16→22:21)
[2019-04-03] MEDS: GABAPENTIN 300 MG CAPSULE (FP) PO SCH ×3 (06:16→22:20)
[2019-04-03 06:36] LABS: INR 1.25 (0.83-1.09); PROTHROMBIN TIME (PATIENT) 14.8 SEC (9.7-13.0)
[2019-04-03 06:43] LABS: ALBUMIN 2.5 g/dl (3.4-5.0); BILIRUBIN,TOTAL 0.4 mg/dL (0.2-1); BLOOD UREA NITROGEN 5.5 mg/dL (7-18); CALCIUM 8.3 mg/dL (8.5-10.1); CREATININE 0.8 mg/dL (0.55-1.3); POTASSIUM 3.7 mmol/L (3.5-5.1)
[2019-04-03] MEDS ORDERED: PROPOFOL 20 ML ONE (07:22)
[2019-04-03] MEDS ORDERED: ROCURONIUM BROMIDE 50 MG/5 ML SYRINGE ONE ×2 (07:22→08:44)
[2019-04-03] MEDS ORDERED: MIDAZOLAM HCL 2 MG/2 ML SINGLE DOSE VIAL ONE ×2 (07:22)
[2019-04-03] MEDS ORDERED: SODIUM CHLORIDE 0.9% P/F 10 ML VIAL IJ ONE (07:23)
[2019-04-03] MEDS ORDERED: KETOROLAC TROMETHAMINE 30 MG/1 ML VIAL ONE (07:23)
[2019-04-03] MEDS ORDERED: ceFAZolin SODIUM 1 GM VIAL ONE (07:23)
[2019-04-03] MEDS ORDERED: LIDOCAINE HCL/PF 2% SDV 5ML VIAL ONE (07:23)
[2019-04-03] MEDS ORDERED: DEXAMETHASONE SOD PHOSPHATE 4 MG/1 ML VIAL ONE (07:23)
[2019-04-03] MEDS ORDERED: KETAMINE HCL 200 MG/20 ML VIAL ONE (07:23)
[2019-04-03] MEDS ORDERED: DEXAMETHASONE SOD PHOSPHATE/PF 10 MG/ML SDV ONE (07:29)
[2019-04-03] MEDS ORDERED: DEXMEDETOMIDINE HCL 200 MCG/2 ML IVPB ONE (07:29)
[2019-04-03] MEDS ORDERED: BUPIVACAINE HCL/PF 0.5% (5 MG/ML) 30 ML VIAL IJ ONE (07:29)
[2019-04-03] MEDS ORDERED: SUCCINYLCHOLINE CHLORIDE 200 MG/10 ML SYRINGE ONE (07:38)
[2019-04-03] MEDS ORDERED: ceFAZolin SODIUM 1 GM VIAL IVPB ONE (08:30)
[2019-04-03] MEDS ORDERED: EPHEDRINE SULFATE/0.9% NACL/PF 50 MG/10 ML SYRINGE NR ONE (08:40)
[2019-04-03] MEDS ORDERED: NEOSTIGMINE METHYLSULFATE 0.5 MG/ML - 10 ML MDV ONE (09:03)
[2019-04-03] MEDS ORDERED: GLYCOPYRROLATE 0.2 MG/1 ML VIAL ONE ×2 (09:04→10:07)
[2019-04-03] MEDS ORDERED: ESMOLOL HCL 100,000 MCG/10 ML VIAL ONE (09:14)
[2019-04-03] MEDS: REPAGLINIDE 0.5 MG TABLET (FP) PO SCH (10:02)
[2019-04-03] MEDS: PANTOPRAZOLE 40 MG TABLET (FP) PO SCH (10:02)
[2019-04-03] MEDS ORDERED: BENZOIN TINCTURE SWABSTICK TP ONE (10:07)
[2019-04-03] MEDS ORDERED: morphine CARPU-JECT 10 MG/1 ML DISP.SYRIN IVPB PRN (10:38)
[2019-04-03] MEDS ORDERED: ONDANSETRON 4 MG/2 ML VIAL IVPUSH PRN (10:38)
[2019-04-03] MEDS ORDERED: oxyCODONE HCL 5 MG TABLET PO PRN (10:38)
--- NOTE | 2019-04-03 10:50 | OP ---
Operative Note - Note: Operative Date: 04/03/19 Pre-Operative Diagnosis: abdominal mass Operation: exploratory laparotomy, en bloc resection abd mass with small bowel resection x 2, removal foreign body (mesh), primary repair recurrent incision hernia, primary repair epigastric hernia, exstensive lysis of adhesions, lavage Findings: mesenteric mass adhesed to retroperitoneum involving two loops of bowel, mass as mesteric root not involving bowel, abd wall hernia x 2 Post-Operative Diagnosis: Same as Pre-op Surgeon: Chad Wang Director Of Knowledge Management: Rodrigo Avalos Anesthesiologist/SPARE FIXER: Fransisca Meléndez Specimens Removed: enbloc tumor with sbr x 2, hernia mesh, hernia sac Estimated Blood Loss (mls): 150 Operative Report Dictated: Yes
[2019-04-03] MEDS ORDERED: ALBUTEROL SO4 8 GM HFA INHALER IH PRN (10:57)
[2019-04-03] MEDS ORDERED: ACETAMINOPHEN 325 MG TABLET (FP) PO PRN (10:57)
[2019-04-03] MEDS: ACETAMINOPHEN 1000 MG/100 ML VIAL (NON FORMULARY) IVPB SCH ×3 (11:35→23:24)
[2019-04-03] MEDS ORDERED: LACTATED RINGERS SOLUTION 1,000 ML IV SCH (11:45)
[2019-04-03] MEDS: DEXTROSE 5%-NORMAL SALINE 1,000 ML IV SCH (13:00)
[2019-04-03] MEDS: DIGOXIN 0.25 MG TABLET (FP) PO SCH (13:51)
[2019-04-03] MEDS: ASCORBIC ACID 500 MG/5 ML UNIT DOSE CUP PO SCH (13:52)
[2019-04-03] MEDS: CEFTRIAXONE 1 GM in DEXTROSE 5%-WATER - 50 ML IVPB SCH (13:52)
[2019-04-03] MEDS: BUDESONIDE/FORMETEROL FUMARATE 160/4.5 mcg INHALER IH SCH ×2 (13:52→22:21)
--- NOTE | 2019-04-03 14:15 | OP ---
DATE OF OPERATION: 04/03/2019 PREOPERATIVE DIAGNOSES: History of metastatic melanoma, suspected small bowel mass with perforation. POSTOPERATIVE DIAGNOSES: Recurrent chronically incarcerated ventral incisional hernia, epigastric hernia, large mass in the proximal mesentery, suspected liver metastasis. PROCEDURE: Exploratory laparotomy, resection of abdominal mass, small-bowel resection x2, removal of foreign body, repair of recurrent incisional hernia, repair of epigastric hernia, extensive lysis of adhesions, peritoneal lavage. SURGEON: Chad Wang MD MIXER OPERATOR RAW SALT: Rodrigo Avalos DO ANESTHESIA: Fransisca Meléndez MD (general) ESTIMATED BLOOD LOSS: 150 mL. SPECIMEN: Small bowel tumor, foreign body (old mesh), incarcerated, recurrent incisional hernia containing fat and hernia sac. INDICATION FOR PROCEDURE: This is a 63-year-old gentleman who was admitted with nonspecific findings. Ultimately, during the workup, he underwent a CAT scan that demonstrated a 10-cm+ mass in the small bowel with perforation, extravasation of contrast, air-fluid levels. Attempt at percutaneous drainage of this finding was contemplated, but not possible, and therefore, the patient is here today for an exploratory laparotomy. I do suspect that this patient has metastatic cancer given his history of multiple excisions and history of metastatic melanoma. OPERATIVE FINDINGS: 1. Large 10+-cm mass incorporating the small bowel at the level in 2 places, 1 is at the level approximately 6 inches distal to the ligament of Treitz and the other area that was densely incorporated of the small bowel was approximately 6 inches from the terminal ileum. There is a golf ball sized mass separate from this in the proximal mesentery near the root. 2. Recurrent, chronically incarcerated incisional hernia, primary epigastric hernia, diffuse adhesions, suspected liver metastasis. DESCRIPTION OF PROCEDURE: Patient identified and underwent placement of general anesthesia, and the abdomen was subsequently prepped and draped in the usual sterile fashion with ChloraPrep. A midline incision was made, deepened to the subcutaneous tissue. The fascia was divided in the midline. The peritoneum incised. The abdomen was entered. Upon entering the abdomen, there was a large, dense mass at the level of the umbilicus from this previous incisional hernia repair. This mass had dense adhesions around it and omentum, and small bowel was densely adherent to the mass. These adhesions were taken down sharply, the mass sharply excised with scissors. The mass consisted of the old mesh that was used for the hernia repair. In entering the abdomen, he was also noted to have a primary epigastric hernia, and this contained just fat. Exploration of the abdomen further ensued. Along with this small mass that was noted, small bowel was densely, intimately associated with this mass at 2 obvious places. The distal small bowel that was adherent to this mass was approximately 6 inches from the ileocecal valve, and the other loop of bowel that was adherent to this mass at this point could not be determined where it had emanated in terms of the bowel due to the mass itself being adherent to the mesentery of the bowel in the retroperitoneum and the way things were stuck. Adhesions of omentum from the previous surgery were taken down. There was also an adhesion noted to the liver just at the same plane where the falciform ligament would enter, and deep to this adhesion was firm; and therefore, I suspect a liver metastasis. This was very posterior on the liver and not able to be accessed well from my incision; and therefore, this adhesion was not taken down, and the liver metastasis was not biopsied nor addressed. At this point, the attempt was made to remove this large mass, which is the primary goal of this surgery. The mass was lifted towards the anterior abdominal wall allowing the mesentery junction to be identified, and where the mesentery entered the retroperitoneum, this peritoneum overlying this was sharply divided. This then subsequently ensued a plane that was then circumscribed around as much as possible. Using blunt dissection, the mass was mobilized out of the retroperitoneum. The mass itself there were no obvious vessels to address this mass, but there were multiple small branches of tributaries going into this mass; and therefore, those were taken with the LigaSure device. The mass was mobilized slowly out of the retroperitoneum bit by bit by using blunt and sharp dissection, and the tributaries were divided with the LigaSure device as needed. This patient had no obvious vessels bleeding but had diffuse oozing from the retroperitoneum and even from the skin incision and subcutaneous fat. He did not form clot well. Going from side to side and slowly dissecting this mass out of the retroperitoneum, it was eventually able to be lifted closer to the operative field, and in doing this maneuver, it allowed the obvious portion of the distal small bowel that was adherent to this mass to be identified both the loop going in and out; and therefore, a limited small-bowel resection was performed with a BINDU 80/3.8-mm stapler and the enterotomy closed with a TA 60/ 3.8-mm stapler. The bowel proximal and distal to the staple line was pink and viable. The staple lines were grossly intact. There was a good 2 fingerbreadths opening in the [id number] anastomosis. Next, the mesentery to the divided bowel was taken with a LigaSure device, and this divided segment of bowel was also part of the large mass, and this then was slowly more teased out of the retroperitoneum getting on the mass more superiorly. This allowed freeing of the mass 3/4 from patient's right lateral side towards the midline as well as superiorly. In doing this, the mass was then slowly teased, and it became obvious where the other loop of bowel a entering the mass on the patient's left side, and this loop of bowel turns out to be approximately 6 inches from the ligament of Treitz. But again, this mass was densely adherent to this bowel, and therefore, another bowel resection had to be performed approximately 4 inches from the ligament of Treitz. Again, it was done in a similar fashion with a BINDU 80/3.8-mm stapler to do a [id number] anastomosis and the enterotomy closed with a TA 60/3.8-mm stapler. This allowed freeing of the mass superiorly and the only portion that was still stuck was the left lateral side, and this mesentery was divided with LigaSure device. Therefore, the mass was subsequently removed. The operative field was noted to be hemostatic, but there was diffuse ooze from the retroperitoneum, and therefore, a lap sponge placed into this operative field. Examination of both anastomoses revealed the bowel proximal and distal to the anastomosis to be pack and viable. There are no gross breaks in the staple line , and both bowel anastomoses had at least a 2-fingerbreadth opening. The mesenteric defect of both loops were closed with a running 3-0 chromic suture, and both corners were oversewn with interrupted 3-0 silk Lembert sutures as a buttress to the TA staple line. At this point, the surgeon and 1st surgical assistant certified changed glove and gowns. During the anastomosis, the area was toweled off, and those towels were removed as well. The abdomen copiously irrigated with warm saline at this point. The irrigant retrieved and noted to be clear. Now, the bowel was completely eviscerated and run from ligament of Treitz to the terminal ileum. In doing this maneuver, the 1st anastomosis was as described approximately 4-6 inches from the ligament of Treitz, and then as the mesentery was mobilized and lifted out, there was an obvious new mass identified, and it was golf ball sized in the mesentery along the retroperitoneum. 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 There were no other findings in the mesentery of the small bowel. Palpation of the liver revealed no obvious findings, but there was an adhesion, and deep to the adhesion noted in the central aspect of the liver was a firm nodule. This could be related to the adhesion, but I suspect this is also a metastasis deep to the adhesion. It was far in the posterior lobe, and given the incision, I was unable to access this well; and therefore, the adhesion was not taken down and the mass not biopsied. The abdomen irrigated once again. The operative field hemostatic. The retroperitoneum where the mass was removed was noted to be hemostatic, but there was this raw ooze; and therefore, the area was then irrigated and FloSeal placed above this area. Once this was done, the operative field examined once again. Noted to be hemostatic. The bowel returned to its anatomic position. Omentum placed over the midline of the abdomen, and the midline incision was then subsequently enclosed with a running No. 1 PDS suture. The hernia at the epigastrium and recurrent hernia from the incisional hernia was closed primarily in this closure and repaired. The subcutaneous space irrigated and the skin closed with jeannie followed by Dermabond. At the conclusion of this case, sponge counts were correct. ATTESTATION: Brief operative note handwritten on the preprinted form. [facility] queried prior to giving narcotics. Marcela HAYWARD [id number] cc: MD Dejon Martin MD Orest Kozicky, MD Jose Lantin, MD [facility]
[2019-04-03] MEDS ORDERED: DEXTROSE 5%-WATER - 50 ML IVPB ONE (14:28)
[2019-04-03] MEDS ORDERED: cefTRIAXone SODIUM 1 GM VIAL ONE (14:28)
[2019-04-03] MEDS ORDERED: PANTOPRAZOLE SODIUM 40 MG VIAL IVPUSH ONE (14:30)
[2019-04-03] MEDS ORDERED: DIGOXIN 0.25 MG TABLET (FP) PO ONE (14:30)
[2019-04-03] MEDS ORDERED: CEFTRIAXONE 1 GM in DEXTROSE 5%-WATER - 50 ML IVPB ONE (14:30)
[2019-04-03] MEDS: HYDROmorphone HCl 2 MG/ML VIAL IVPB PRN ×2 (14:36→20:12)
[2019-04-03] MEDS: INSULIN SLIDING SCALE (NOVOLOG) 1 VIAL SQ SCH ×2 (18:10→23:24)
--- NOTE | 2019-04-03 19:04 | PN ---
Progress Note (short form) - Note Progress Note: Patient seen and examined Awake and alert with at bedside Aware of surgery with mass found and resected Path awaited Last Vital Signs Temp Pulse Resp BP Pulse Ox 98.8 F 83 16 117/57 L 100 04/03/19 16:32 04/03/19 16:32 04/03/19 16:32 04/03/19 16:32 04/03/19 15:[address] Lungs with diminished breath sounds RSR Surgical site - clear
--- NOTE | 2019-04-03 22:46 | PN ---
Progress Note, Physician History of Present Illness: Pt is s/p abd tumor resection and perforated SB repair. Pt w/o abd pain (s/p dialudid) Pt w/o fever, chills, SOB, CP, palpitations. Pt's at bedside. - Current Medication List Current Medications: Active Medications Acetaminophen (Tylenol -) 650 mg PO Q12H PRN PRN Reason: FEVER Acetaminophen (Ofirmev Injection -) 1,000 mg IVPB Q6H [facility] Stop: 04/04/19 05:46 Last Admin: 04/03/19 17:42 Dose: 1,000 mg Albuterol Sulfate (Ventolin Hfa Inhaler -) 2 puff IH Q4H PRN PRN Reason: SHORTNESS OF BREATH/WHEEZING Alprazolam (Xanax -) 0.25 mg PO Q6H PRN PRN Reason: ANXIETY Budesonide/Formoterol Fumarate (Symbicort 160/4.5mcg -) 1 puff IH BID [facility] Last Admin: 04/03/19 22:21 Dose: 1 puff Digoxin (Lanoxin -) 0.25 mg PO DAILY [facility] Fentanyl (Sublimaze Injection -) 50 mcg IVPUSH [id number] PRN PRN Reason: PAIN-PACU ORDER X 4 DOSES ONLY Last Admin: 04/03/19 11:55 Dose: 50 mcg Gabapentin (Neurontin -) 600 mg PO TID [facility] Last Admin: 04/03/19 22:20 Dose: 600 mg Hydromorphone HCl (Dilaudid Vial -) 2 mg IVPB Q3H PRN PRN Reason: PAIN LEVEL 7 - 10 Last Admin: 04/03/19 20:12 Dose: 2 mg Dextrose/Sodium Chloride (D5-Ns -) 1,000 mls @ 100 mls/hr IV [facility]IR [facility] Last Admin: 04/03/19 13:00 Dose: 0 mls Ceftriaxone Sodium 1 gm/ (Dextrose) 50 mls @ 100 mls/hr IVPB DAILY [facility]; Protocol Metronidazole (Flagyl 500mg Premixed Ivpb -) 500 mg in 100 mls @ 100 mls/hr IVPB Q8H-IV [facility] Last Admin: 04/03/19 18:11 Dose: 100 mls/hr Insulin Aspart (Novolog Vial Sliding Scale -) 1 vial SQ Q6H [facility]; Protocol Last Admin: 04/03/19 18:10 Dose: 6 units Metoprolol Succinate (Toprol Xl -) 50 mg PO HS [facility] Last Admin: 04/03/19 22:20 Dose: 50 mg Metoprolol Succinate (Toprol Xl -) 100 mg PO AM [facility] Ondansetron HCl (Zofran Injection) 4 mg IVPUSH Q6H PRN PRN Reason: NAUSEA Oxycodone HCl (Roxicodone -) 7.5 mg PO Q4H PRN PRN Reason: PAIN LEVEL 4 - 6 Pantoprazole Sodium (Protonix Iv) 40 mg IVPUSH DAILY [facility] Prednisone (Deltasone -) 5 mg PO AM [facility] Prednisone (Deltasone -) 2.5 mg PO HS [facility] Last Admin: 04/03/19 22:21 Dose: 2.5 mg - Objective Vital Signs: Vital Signs Temperature 98.0 F 04/03/19 18:00 Pulse Rate 82 04/03/19 18:00 Respiratory Rate 16 04/03/19 20:33 Blood Pressure 105/52 L 04/03/19 18:00 O2 Sat by Pulse Oximetry (%) 96 04/03/19 20:33 Constitutional: Yes: No Distress, Calm Cardiovascular: Yes: Regular Rate and Rhythm, S1, S2 Respiratory: Yes: Regular, Other (decreased BS bilat.) Gastrointestinal: Yes: Soft, Other (decreased BS) Edema: No Neurological: Yes: Alert, Oriented, Other (symmetric motor in UE/ LE.) Labs: CBC, BMP 04/03/19 05:40 04/03/19 05:40 INR, PTT INR 1.25 (0.83-1.09) H 04/03/19 05:40 Problem List - Problems (1) Atrial fibrillation with RVR Code(s): I48.91 - UNSPECIFIED ATRIAL FIBRILLATION (2) Near syncope Code(s): R55 - SYNCOPE AND COLLAPSE (3) Occult blood in stools Code(s): R19.5 - OTHER FECAL ABNORMALITIES (4) Anemia Code(s): D64.9 - ANEMIA, UNSPECIFIED Qualifiers: Anemia type: unspecified type Qualified Code(s): D64.9 - Anemia, unspecified (5) Dehydration Code(s): E86.0 - DEHYDRATION (6) Metastatic melanoma Code(s): C79.9 - SECONDARY MALIGNANT NEOPLASM OF UNSPECIFIED SITE (7) Abdominal abscess Code(s): PLJ2709 - (8) Perforated bowel Code(s): K63.1 - PERFORATION OF INTESTINE (NONTRAUMATIC) (9) Abdominal mass Code(s): R19.00 - INTRA-ABD AND PELVIC SWELLING, MASS AND LUMP, UNSP SITE Assessment/Plan s/p adb mass resection and perforated SB repair IV abtx ID, GI, Onco, Surgical, IR consults are appreciated. Incentive spirometry (pt's at bedside to remind pt to use it) SCD's AM labs
[2019-04-04] MEDS: INSULIN SLIDING SCALE (NOVOLOG) 1 VIAL SQ SCH ×5 (03:32→21:00)
[2019-04-04] MEDS: HYDROmorphone HCl 2 MG/ML VIAL IVPB PRN ×4 (03:57→20:18)
[2019-04-04] MEDS: GABAPENTIN 300 MG CAPSULE (FP) PO SCH ×3 (05:36→21:01)
[2019-04-04] MEDS: ACETAMINOPHEN 1000 MG/100 ML VIAL (NON FORMULARY) IVPB SCH (05:37)
[2019-04-04] MEDS: predniSONE 5 MG TABLET (UD) PO SCH ×2 (06:00→21:02)
[2019-04-04 07:01] LABS: HEMATOCRIT 26.3 % (35.4-49); HEMOGLOBIN 8.4 GM/dL (11.7-16.9); MCH 27.4 pg (25.7-33.7); MCHC 31.9 g/dl (32.0-35.9); MEAN CELL VOLUME 85.7 fl (80-96); MEAN PLT VOLUME 8.1 fl (7.5-11.1); PLATELET COUNT 289 K/MM3 (134-434); RBC 3.06 M/mm3 (4.00-5.60); RDW 18.1 % (11.9-15.9); WHITE BLOOD COUNT 11.6 K/mm3 (4.0-10.0)
[2019-04-04 07:02] LABS: INR 1.27 (0.83-1.09)
[2019-04-04 07:20] LABS: BLOOD UREA NITROGEN 16.9 mg/dL (7-18); CALCIUM 7.4 mg/dL (8.5-10.1); CREATININE 1.2 mg/dL (0.55-1.3); MAGNESIUM 1.8 mg/dL (1.8-2.4); POTASSIUM 4.4 mmol/L (3.5-5.1)
--- NOTE | 2019-04-04 08:30 | PN ---
Progress Note, Physician Chief Complaint: s.p laparotomy abd mass on 4s axox3 NAD afebrile VSS occ pain, no BM no gas; no N/V at bedside - Current Medication List Current Medications: Active Medications Acetaminophen (Tylenol -) 650 mg PO Q12H PRN PRN Reason: FEVER Albuterol Sulfate (Ventolin Hfa Inhaler -) 2 puff IH Q4H PRN PRN Reason: SHORTNESS OF BREATH/WHEEZING Alprazolam (Xanax -) 0.25 mg PO Q6H PRN PRN Reason: ANXIETY Budesonide/Formoterol Fumarate (Symbicort 160/4.5mcg -) 1 puff IH BID [facility] Last Admin: 04/03/19 22:21 Dose: 1 puff Digoxin (Lanoxin -) 0.25 mg PO DAILY [facility] Fentanyl (Sublimaze Injection -) 50 mcg IVPUSH [id number] PRN PRN Reason: PAIN-PACU ORDER X 4 DOSES ONLY Last Admin: 04/03/19 11:55 Dose: 50 mcg Gabapentin (Neurontin -) 600 mg PO TID [facility] Last Admin: 04/04/19 05:36 Dose: 600 mg Hydromorphone HCl (Dilaudid Vial -) 2 mg IVPB Q3H PRN PRN Reason: PAIN LEVEL 7 - 10 Last Admin: 04/04/19 03:57 Dose: 2 mg Dextrose/Sodium Chloride (D5-Ns -) 1,000 mls @ 100 mls/hr IV ASDIR [facility] Last Admin: 04/03/19 13:00 Dose: 0 mls Ceftriaxone Sodium 1 gm/ (Dextrose) 50 mls @ 100 mls/hr IVPB DAILY [facility]; Protocol Metronidazole (Flagyl 500mg Premixed Ivpb -) 500 mg in 100 mls @ 100 mls/hr IVPB Q8H-IV [facility] Last Admin: 04/04/19 00:59 Dose: 100 mls/hr Insulin Aspart (Novolog Vial Sliding Scale -) 1 vial SQ Q6H [facility]; Protocol Last Admin: 04/04/19 05:34 Dose: Not Given Metoprolol Succinate (Toprol Xl -) 50 mg PO HS [facility] Last Admin: 04/03/19 22:20 Dose: 50 mg Metoprolol Succinate (Toprol Xl -) 100 mg PO AM [facility] Last Admin: 04/04/19 06:00 Dose: 100 mg Ondansetron HCl (Zofran Injection) 4 mg IVPUSH Q6H PRN PRN Reason: NAUSEA Last Admin: 04/04/19 07:30 Dose: 4 mg Oxycodone HCl (Roxicodone -) 7.5 mg PO Q4H PRN PRN Reason: PAIN LEVEL 4 - 6 Pantoprazole Sodium (Protonix Iv) 40 mg IVPUSH DAILY [facility] Prednisone (Deltasone -) 5 mg PO AM [facility] Last Admin: 04/04/19 06:00 Dose: 5 mg Prednisone (Deltasone -) 2.5 mg PO HS [facility] Last Admin: 04/03/19 22:21 Dose: 2.5 mg - Objective Vital Signs: Vital Signs Temperature 98.3 F 04/04/19 06:00 Pulse Rate 67 04/04/19 06:00 Respiratory Rate 20 04/04/19 06:00 Blood Pressure 136/67 04/04/19 06:00 O2 Sat by Pulse Oximetry (%) 96 04/03/19 20:33 Constitutional: Yes: No Distress, Calm Eyes: Yes: Conjunctiva Clear HENT: Yes: Atraumatic Neck: Yes: Supple Cardiovascular: Yes: Regular Rate and Rhythm Respiratory: Yes: Diminished Gastrointestinal: Yes: Soft, Other (s.p surgery dressed no bleed) Genitourinary: No: Hematuria Musculoskeletal: No: Joint Stiffness, Joint Swelling Extremities: No: Cold, Cool Edema: No Integumentary: No: Rash, Venous Stasis Changes Neurological: Yes: WNL, Alert, Oriented ...Motor Strength: WNL Psychiatric: Yes: WNL, Alert, Oriented. No: Agitated, Suicidal Ideation Labs: CBC, BMP 04/04/19 05:40 04/04/19 05:40 INR, PTT INR 1.27 (0.83-1.09) H 04/04/19 05:40 - ....Imaging Other: Report Reviewed Assessment/Plan The patient is a 63 year old male with a PMH of HTN, HLD, DM, Afib (not on anticoagulation), and stage four melanoma with metastasis to the brain s/p craniotomy and mets to kidney s/p nephrectomy admitted with a pre-syncopal episode, some LLQ tenderness and anemia with guaiac + stools s/p laparotomy abdominal mass h/o melanoma NGT; IVF IV atb IV ATB per ID; path f/u cardio, GI and onc f/u check labs in am DVT pfx dw/ pt and sq heparin to start when OK with surgery (risk of bleeding > risk of DVT at this point per surgery) d.w pt and d/w staff
[2019-04-04] MEDS ORDERED: DEXTROSE 5%-WATER - 50 ML IVPB ONE (09:35)
[2019-04-04] MEDS ORDERED: cefTRIAXone SODIUM 1 GM VIAL ONE (09:35)
[2019-04-04] MEDS: CEFTRIAXONE 1 GM in DEXTROSE 5%-WATER - 50 ML IVPB SCH (09:42)
[2019-04-04] MEDS: PANTOPRAZOLE SODIUM 40 MG VIAL IVPUSH SCH (09:44)
[2019-04-04] MEDS: DIGOXIN 0.25 MG TABLET (FP) PO SCH (09:48)
[2019-04-04] MEDS: BUDESONIDE/FORMETEROL FUMARATE 160/4.5 mcg INHALER IH SCH ×2 (10:28→21:01)
--- NOTE | 2019-04-04 13:23 | PN ---
Progress Note (short form) - Note Progress Note: Anesthesia postop note 63 y/o M s/p GA/ tap blocks for exploratory laparotomy/ small bowel resection POD#1, vss, aaox3, no complaints. No anesthesia complications.
[2019-04-04] MEDS: DEXTROSE 5%-NORMAL SALINE 1,000 ML IV SCH (13:27)
--- NOTE | 2019-04-04 13:55 | PN ---
Progress Note (short form) - Note Progress Note: surgery pt seen and examined by Dr. Wang. feels well. minimal ngt output afebrile abd- soft, minimal tenderness, nd, incision clean, u/o 1300 Laboratory Tests 04/03/19 04/04/19 04/04/19 05:40 05:40 05:40 WBC 11.6 H Hgb 9.3 L 8.4 L Plt Count 289 INR 1.27 H A/P 1) pod#1- cont npo, cont ngt, d/c tinajero, cont ivf. will add kcl for physiolgic maintanence 2) prophylaxis- hold lovenox for risk of bleed despite dvt risk. may resume tomorrow if remains stable. cont protonix, oob, spirometer. 3) abd mass- appeared malignant. awaiting path. can likely stop abx when wbc normalizes 4) htn, dm, afib- on home meds per medical team. sliding scale until starts diet. 5) retrorectus block, morphine, oxycodone
--- NOTE | 2019-04-04 13:56 | PN ---
Progress Note (short form) - Note Progress Note: Subjective: Patient seen and examined at bedside. Patient OOB to chair. Patient c/o mild pain. Objective: Vital Signs Temperature 97.8 F 04/04/19 13:48 Pulse Rate 64 04/04/19 13:48 Respiratory Rate 16 04/04/19 13:48 Blood Pressure 121/61 04/04/19 13:48 O2 Sat by Pulse Oximetry (%) 96 04/03/19 20:33 Gen: Patient OOB to chair, awake and alert. Patient responds in one word sentences and falls asleep during the interview. Cardio: regular rate and rhythm. S1, S2 heard. No murmurs, gallops, rubs Pulm: Lungs CTA b/l down to the bases. Abdomen: patient declined exam 2/2 pain. CBC, BMP 04/04/19 05:40 04/04/19 05:40 Assessment & plan: The patient is a 63 y/o f w/ PMH metastatic melanoma who presented w/ dizziness , L chest pain and found to have a 10 cm X 9 cm X 5 cm mass in his abdomen w/ associated lymphadenopathy. #abdominal mass r/o disease recurrence -POD #1 mass resection -Post op mgmt per surgery -will await pathology results. #anemia -likely 2/2 AOCD -monitor CBC -maintain normal transfusion thresholds.
[2019-04-04] MEDS: D5-NS + 20 MEQ KCL - 20 MEQ/1,000 ML INFUS.BAG IV SCH (14:14)
[2019-04-04] MEDS: ALPRAZolam 0.25 MG TABLET PO PRN (21:01)
[2019-04-05] MEDS: D5-NS + 20 MEQ KCL - 20 MEQ/1,000 ML INFUS.BAG IV SCH (01:18)
[2019-04-05] MEDS: INSULIN SLIDING SCALE (NOVOLOG) 1 VIAL SQ SCH ×4 (03:15→22:08)
[2019-04-05] MEDS: predniSONE 5 MG TABLET (UD) PO SCH ×2 (06:09→22:08)
[2019-04-05] MEDS: GABAPENTIN 300 MG CAPSULE (FP) PO SCH ×3 (06:09→22:08)
[2019-04-05 06:31] LABS: BASO % 0.2 % (0-2.0); EOS % 0.1 % (0-4.5); HEMATOCRIT 23.5 % (35.4-49); HEMOGLOBIN 7.4 GM/dL (11.7-16.9); LYMPH % 8.8 % (8-40); MCH 27.3 pg (25.7-33.7); MCHC 31.6 g/dl (32.0-35.9); MEAN CELL VOLUME 86.4 fl (80-96); MONO % 6.5 % (3.8-10.2); NEUT % 84.4 % (42.8-82.8); PLATELET COUNT 253 K/MM3 (134-434); RBC 2.72 M/mm3 (4.00-5.60); RDW 18.1 % (11.9-15.9); WHITE BLOOD COUNT 8.6 K/mm3 (4.0-10.0)
[2019-04-05] MEDS: HYDROmorphone HCl 2 MG/ML VIAL IVPB PRN ×3 (06:38→19:50)
[2019-04-05 06:43] LABS: BILIRUBIN,TOTAL 0.2 mg/dL (0.2-1); CALCIUM 7.6 mg/dL (8.5-10.1); CREATININE 0.8 mg/dL (0.55-1.3); POTASSIUM 4.5 mmol/L (3.5-5.1); TOT PROT 4.3 g/dl (6.4-8.2)
--- NOTE | 2019-04-05 08:25 | PN ---
Progress Note, Physician Chief Complaint: in bed NGT in NAD VSS at bedside asked for FMLA papers did not pass stools or gas yet; NPO; ivf and iv ATB - Current Medication List Current Medications: Active Medications Acetaminophen (Tylenol -) 650 mg PO Q12H PRN PRN Reason: FEVER Albuterol Sulfate (Ventolin Hfa Inhaler -) 2 puff IH Q4H PRN PRN Reason: SHORTNESS OF BREATH/WHEEZING Alprazolam (Xanax -) 0.25 mg PO Q6H PRN PRN Reason: ANXIETY Last Admin: 04/04/19 21:01 Dose: 0.25 mg Budesonide/Formoterol Fumarate (Symbicort 160/4.5mcg -) 1 puff IH BID [facility] Last Admin: 04/04/19 21:01 Dose: 1 puff Digoxin (Lanoxin -) 0.25 mg PO DAILY [facility] Last Admin: 04/04/19 09:48 Dose: 0.25 mg Fentanyl (Sublimaze Injection -) 50 mcg IVPUSH [id number] PRN PRN Reason: PAIN-PACU ORDER X 4 DOSES ONLY Last Admin: 04/03/19 11:55 Dose: 50 mcg Gabapentin (Neurontin -) 600 mg PO TID [facility] Last Admin: 04/05/19 06:09 Dose: 600 mg Hydromorphone HCl (Dilaudid Vial -) 2 mg IVPB Q3H PRN PRN Reason: PAIN LEVEL 7 - 10 Last Admin: 04/05/19 06:38 Dose: 2 mg Ceftriaxone Sodium 1 gm/ (Dextrose) 50 mls @ 100 mls/hr IVPB DAILY [facility]; Protocol Last Admin: 04/04/19 09:42 Dose: 100 mls/hr Metronidazole (Flagyl 500mg Premixed Ivpb -) 500 mg in 100 mls @ 100 mls/hr IVPB Q8H-IV [facility] Last Admin: 04/05/19 01:18 Dose: 100 mls/hr Potassium Chloride/Dextrose/Sod Cl (D5-1/2ns+20 Meq Kcl -) 20 meq in 1,000 mls @ 100 mls/hr IV ASDIR [facility] Insulin Aspart (Novolog Vial Sliding Scale -) 1 vial SQ Q6H [facility]; Protocol Last Admin: 04/05/19 03:15 Dose: 2 units Metoprolol Succinate (Toprol Xl -) 50 mg PO HS [facility] Last Admin: 04/04/19 21:01 Dose: 50 mg Metoprolol Succinate (Toprol Xl -) 100 mg PO AM [facility] Last Admin: 04/05/19 06:11 Dose: Not Given Ondansetron HCl (Zofran Injection) 4 mg IVPUSH Q6H PRN PRN Reason: NAUSEA Last Admin: 04/04/19 07:30 Dose: 4 mg Oxycodone HCl (Roxicodone -) 7.5 mg PO Q4H PRN PRN Reason: PAIN LEVEL 4 - 6 Pantoprazole Sodium (Protonix Iv) 40 mg IVPUSH DAILY [facility] Last Admin: 04/04/19 09:44 Dose: 40 mg Prednisone (Deltasone -) 5 mg PO AM [facility] Last Admin: 04/05/19 06:09 Dose: 5 mg Prednisone (Deltasone -) 2.5 mg PO HS [facility] Last Admin: 04/04/19 21:02 Dose: 2.5 mg - Objective Vital Signs: Vital Signs Temperature 98.9 F 04/05/19 06:00 Pulse Rate 53 L 04/05/19 06:00 Respiratory Rate 18 04/05/19 06:00 Blood Pressure 112/65 04/05/19 06:00 O2 Sat by Pulse Oximetry (%) 94 L 04/04/19 21:00 Constitutional: Yes: No Distress, Calm Eyes: Yes: Conjunctiva Clear HENT: Yes: Atraumatic Neck: Yes: Supple Cardiovascular: No: Regular Rate and Rhythm Respiratory: Yes: Diminished Gastrointestinal: Yes: Soft, Tenderness (sec to surgery with palpation only) Genitourinary: No: Otero Present, Hematuria Musculoskeletal: No: Joint Stiffness, Joint Swelling Extremities: No: Cold, Cool Edema: No Integumentary: No: Rash, Venous Stasis Changes Neurological: Yes: WNL, Alert, Oriented ...Motor Strength: WNL Psychiatric: Yes: WNL, Alert, Oriented. No: Agitated, Suicidal Ideation Labs: CBC, BMP 04/05/19 05:59 04/05/19 05:59 INR, PTT INR 1.27 (0.83-1.09) H 04/04/19 05:40 - ....Imaging Other: Report Reviewed Assessment/Plan The patient is a 63 year old male with a PMH of HTN, HLD, DM, Afib (not on anticoagulation), and stage four melanoma with metastasis to the brain s/p craniotomy and mets to kidney s/p nephrectomy admitted with a pre-syncopal episode, s/p laparotomy abdominal mass h/o melanoma NGT; IVF IV atb; pain meds prn IV ATB per ID; path f/u cardio, GI and onc f/u check labs in am DVT pfx dw/ pt and sq heparin to start when OK with surgery (risk of bleeding > risk of DVT at this point per surgery) d.w pt and d/w staff
[2019-04-05] MEDS: D5-1/2NS+20 MEQ KCL - 20 MEQ/1,000 ML INFUS.BAG IV SCH (08:30)
[2019-04-05] MEDS ORDERED: cefTRIAXone SODIUM 1 GM VIAL ONE (08:41)
[2019-04-05] MEDS ORDERED: DEXTROSE 5%-WATER - 50 ML IVPB ONE (08:41)
[2019-04-05] MEDS: CEFTRIAXONE 1 GM in DEXTROSE 5%-WATER - 50 ML IVPB SCH (09:22)
[2019-04-05] MEDS: PANTOPRAZOLE SODIUM 40 MG VIAL IVPUSH SCH (09:22)
[2019-04-05] MEDS: BUDESONIDE/FORMETEROL FUMARATE 160/4.5 mcg INHALER IH SCH ×2 (09:23→22:11)
[2019-04-05] MEDS: DIGOXIN 0.25 MG TABLET (FP) PO SCH (11:22)
--- NOTE | 2019-04-05 13:51 | PN ---
Progress Note (short form) - Note Progress Note: Patient seen and examined Spoke with pathology- preliminary path reveals melanoma- special stains for confimation pending . Have asked for molecular studies if confirmed. Complains of aabdominal pains Last Vital Signs Temp Pulse Resp BP Pulse Ox 98.4 F 60 20 116/56 L 93 L 04/05/19 13:35 04/05/19 13:35 04/05/19 13:35 04/05/19 13:35 04/05/19 09:00 HEENT: KARENA, EOM Intact Oropharynx: No thrush, No mucositis Cor: RSR, No murmurs, No gallops Lungs: diminished breath sounds bilaterally Abd: Soft, srgical site intact Ext:No significant edema Skin: No rashes, Integument intact CBC, BMP 04/05/19 05:59 04/05/19 05:59 Current Medications Generic Name Dose Route Start Last Admin Trade Name Freq PRN Reason Stop Dose Admin Acetaminophen 650 mg 04/03/19 10:57 Tylenol - PO Q12H PRN FEVER Albuterol Sulfate 2 puff 04/03/19 10:57 Ventolin Hfa Inhaler - IH Q4H PRN SHORTNESS OF BREATH/WHEEZING Alprazolam 0.25 mg 04/03/19 10:57 04/04/19 21:01 Xanax - PO 0.25 mg Q6H PRN Administration ANXIETY Budesonide/Formoterol Fumarate 1 puff 04/03/19 22:00 04/05/19 09:23 Symbicort 160/4.5mcg - IH 1 puff BID [facility] Administration Digoxin 0.25 mg 04/04/19 10:00 04/05/19 11:22 Lanoxin - PO Not Given DAILY [facility] Fentanyl 50 mcg 04/03/19 11:35 04/03/19 11:55 Sublimaze Injection - IVPUSH 50 mcg [id number] PRN Administration PAIN-PACU ORDER X 4 DOSES ONLY Gabapentin 600 mg 04/03/19 14:00 04/05/19 13:37 Neurontin - PO 600 mg TID [facility] Administration Hydromorphone HCl 2 mg 04/03/19 10:43 04/05/19 06:38 Dilaudid Vial - IVPB 2 mg Q3H PRN Administration PAIN LEVEL 7 - 10 Ceftriaxone Sodium 1 gm/ 50 mls @ 100 mls/hr 04/04/19 10:00 04/05/19 09:22 Dextrose IVPB 100 mls/hr DAILY [facility] Administration Protocol Metronidazole 500 mg in 100 mls @ 100 mls/hr 04/03/19 18:00 04/05/19 09:37 Flagyl 500mg Premixed Ivpb - IVPB 100 mls/hr Q8H-IV [facility] Administration Potassium Chloride/Dextrose/Sod Cl 20 meq in 1,000 mls @ 100 mls/hr 04/05/19 08:15 04/05/19 08:30 D5-1/2ns+20 Meq Kcl - IV 100 mls/hr ASDIR [facility] Administration Insulin Aspart 1 vial 04/04/19 09:34 04/05/19 09:49 Novolog Vial Sliding Scale - SQ 2 units Q6H [facility] Administration Protocol Metoprolol Succinate 50 mg 04/03/19 22:00 04/04/19 21:01 Toprol Xl - PO 50 mg HS [facility] Administration Metoprolol Succinate 100 mg 04/04/19 07:00 04/05/19 06:11 Toprol Xl - PO Not Given AM [facility] Ondansetron HCl 4 mg 04/03/19 10:38 04/04/19 07:30 Zofran Injection IVPUSH 4 mg Q6H PRN Administration NAUSEA Oxycodone HCl 7.5 mg 04/03/19 10:38 Roxicodone - PO Q4H PRN PAIN LEVEL 4 - 6 Pantoprazole Sodium 40 mg 04/04/19 10:00 04/05/19 09:22 Protonix Iv IVPUSH 40 mg DAILY [facility] Administration Prednisone 5 mg 04/04/19 07:00 04/05/19 06:09 Deltasone - PO 5 mg AM [facility] Administration Prednisone 2.5 mg 04/03/19 22:00 04/04/19 21:02 Deltasone - PO 2.5 mg HS [facility] Administration Impression: S/p surgery for abdominal masses - preliminary path suggests melanoma-await special studies Molecular analysis requested Updated patient and . Anemia- receiving packed cell
--- NOTE | 2019-04-05 15:26 | PN.GI ---
GI Progress Note Subjective: GI NOte: Surgical efforts appreciated. NG removed this morning. No pathology yet. - Objective Vital Signs: Vital Signs Temperature 98.4 F 04/05/19 13:35 Pulse Rate 60 04/05/19 13:35 Respiratory Rate 20 04/05/19 13:35 Blood Pressure 116/56 L 04/05/19 13:35 O2 Sat by Pulse Oximetry (%) 93 L 04/05/19 09:00 ...Auscultate: Yes: Hypoactive Bowel Sounds ...Palpate: Yes: Soft, Other (healing incisions) Labs: CBC, BMP 04/05/19 05:59 04/05/19 05:59 INR, PTT INR 1.27 (0.83-1.09) H 04/04/19 05:40 Assessment/Plan Assessment: - Anticipate pathology will reveal recurrent melanoma. Residual tumor left in abdomen as was not amenable to excision without compromising bowel Plan: -- Await path and the Dr Collins's choice of therapy Dr Arleen Sofia will be covering this weekend Problem List - Problems (1) Metastatic melanoma Code(s): C79.9 - SECONDARY MALIGNANT NEOPLASM OF UNSPECIFIED SITE (2) Abdominal abscess Code(s): [id number] - (3) Gastroenteritis Code(s): K52.9 - NONINFECTIVE GASTROENTERITIS AND COLITIS, UNSPECIFIED (4) Nausea Code(s): R11.0 - NAUSEA (5) Occult blood in stools Code(s): R19.5 - OTHER FECAL ABNORMALITIES (6) Hernia of abdominal wall Code(s): K43.9 - VENTRAL HERNIA WITHOUT OBSTRUCTION OR GANGRENE (7) Near syncope Code(s): R55 - SYNCOPE AND COLLAPSE (8) Dehydration Code(s): E86.0 - DEHYDRATION (9) Atrial fibrillation Code(s): I48.91 - UNSPECIFIED ATRIAL FIBRILLATION Qualifiers: Atrial fibrillation type: unspecified Qualified Code(s): I48.91 - Unspecified atrial fibrillation (10) COPD (chronic obstructive pulmonary disease) Code(s): J44.9 - CHRONIC OBSTRUCTIVE PULMONARY DISEASE, UNSPECIFIED (11) Diabetes Code(s): E11.9 - TYPE 2 DIABETES MELLITUS WITHOUT COMPLICATIONS (12) Headache Code(s): R51 - HEADACHE (13) Intracranial mass Code(s): R90.0 - INTCRN SPACE-OCCUPYING LESION FOUND ON DX IMAGING OF CNSL (14) Atrial flutter Code(s): I48.92 - UNSPECIFIED ATRIAL FLUTTER Qualifiers: Atrial flutter type: unspecified Qualified Code(s): I48.92 - Unspecified atrial flutter (15) Metastatic melanoma Code(s): C79.9 - SECONDARY MALIGNANT NEOPLASM OF UNSPECIFIED SITE
[2019-04-06] MEDS: INSULIN SLIDING SCALE (NOVOLOG) 1 VIAL SQ SCH ×4 (03:59→22:56)
[2019-04-06] MEDS: ALPRAZolam 0.25 MG TABLET PO PRN (03:59)
[2019-04-06] MEDS: D5-1/2NS+20 MEQ KCL - 20 MEQ/1,000 ML INFUS.BAG IV SCH ×2 (04:02→09:55)
[2019-04-06] MEDS: HYDROmorphone HCl 2 MG/ML VIAL IVPB PRN ×4 (05:13→21:29)
[2019-04-06] MEDS: GABAPENTIN 300 MG CAPSULE (FP) PO SCH ×3 (06:45→22:55)
[2019-04-06] MEDS: predniSONE 5 MG TABLET (UD) PO SCH ×2 (07:06→22:56)
[2019-04-06 07:27] LABS: BASO % 0.9 % (0-2.0); EOS % 0.7 % (0-4.5); HEMATOCRIT 31.5 % (35.4-49); HEMOGLOBIN 10.3 GM/dL (11.7-16.9); LYMPH % 11.2 % (8-40); MCHC 32.6 g/dl (32.0-35.9); MEAN CELL VOLUME 85.7 fl (80-96); MEAN PLT VOLUME 8.3 fl (7.5-11.1); MONO % 6.9 % (3.8-10.2); NEUT % 80.3 % (42.8-82.8); PLATELET COUNT 226 K/MM3 (134-434); RBC 3.68 M/mm3 (4.00-5.60); WHITE BLOOD COUNT 7.4 K/mm3 (4.0-10.0)
--- NOTE | 2019-04-06 08:07 | PN ---
Progress Note (short form) - Note Progress Note: surgery pt seen and examined yesterday afternoon. has hiccups. no flatus. ngt removed. voiding afebrile abd- soft, minimal tenderness, incision clean Laboratory Tests 04/05/19 04/05/19 04/06/19 05:59 05:59 06:45 WBC 8.6 7.4 Hgb 7.4 L 10.3 L Sodium 146 H A/P 1) pod#2- cont npo, d/c ngt, cont ivf. change to 1/2 ns for rising na 2) prophylaxis- cont to hold ovenox for risk of bleed despite dvt risk. transfused monday for drop to 7. appropriate rise 3) abd mass- appeared malignant. awaiting path. no surgical need for abx. 4) htn, dm, afib- on home meds per medical team. sliding scale until starts diet. 5) retro-rectus block, morphine, oxycodone
[2019-04-06 08:08] LABS: ALBUMIN 2.1 g/dl (3.4-5.0); BILIRUBIN,TOTAL 0.6 mg/dL (0.2-1); BLOOD UREA NITROGEN 10.9 mg/dL (7-18); CALCIUM 7.8 mg/dL (8.5-10.1); CREATININE 0.7 mg/dL (0.55-1.3); MAGNESIUM 1.7 mg/dL (1.8-2.4); PHOSPHOROUS 2.1 mg/dL (2.5-4.9); POTASSIUM 4.5 mmol/L (3.5-5.1); TOT PROT 4.6 g/dl (6.4-8.2)
[2019-04-06] MEDS ORDERED: DEXTROSE 5%-WATER - 50 ML IVPB ONE (09:51)
[2019-04-06] MEDS ORDERED: cefTRIAXone SODIUM 1 GM VIAL ONE (09:51)
[2019-04-06] MEDS: PANTOPRAZOLE SODIUM 40 MG VIAL IVPUSH SCH (10:03)
[2019-04-06] MEDS: CEFTRIAXONE 1 GM in DEXTROSE 5%-WATER - 50 ML IVPB SCH (10:03)
[2019-04-06] MEDS: BUDESONIDE/FORMETEROL FUMARATE 160/4.5 mcg INHALER IH SCH ×2 (10:09→22:57)
[2019-04-06] MEDS ORDERED: SODIUM PHOSPHATE - 27 MM in DEXTROSE 5%-WATER - 250 ML IVPB ONE (12:03)
--- NOTE | 2019-04-06 12:09 | PN ---
Progress Note (short form) - Note Progress Note: surgery pt seen and examined. feels well. using dilaudid. minimal oob. no flatus. hiccups stopped. no nausea. max on spirometer Laboratory Tests 04/05/19 04/05/19 04/06/19 05:59 05:59 06:45 WBC 8.6 7.4 Hgb 7.4 L 10.3 L Sodium 146 H Laboratory Tests 04/06/19 06:45 Sodium 140 Phosphorus 2.1 L Magnesium 1.7 L A/P 1) pod#3- cont npo, cont ivf. expect ileus to last 1-3 more days. 2) prophylaxis- will resume lovenox as hgb stable after transfusion 3) abd mass- appeared malignant. awaiting path. stop abx. 4) htn, dm, afib- on home meds per medical team. sliding scale until starts diet. 5) retro-rectus block, dilaudid, oxycodone 6) hypernatremia- resolved 7) hypophosphatemia- will correct 8) hypomagnesemia- will correct
[2019-04-06] MEDS ORDERED: MAGNESIUM SULF 50% (8.12 MEQ/2 ML-1 GM VIAL) IVPB ONE ×2 (12:15)
[2019-04-06] MEDS: ENOXAPARIN NA (PORCINE) 40 MG/0.4 ML DISP.SYRIN SQ SCH (13:40)
[2019-04-06] MEDS: DIGOXIN 0.25 MG TABLET (FP) PO SCH (13:40)
--- NOTE | 2019-04-06 14:33 | PN ---
Progress Note, Physician History of Present Illness: Pt is s/p abd tumor resection and perforated SB repair, POD #3. Pt w abd pain , on and off, better than 1-st day postop. Pt w/o fever, chills, SOB, CP, palpitations. Pt's at bedside. - Current Medication List Current Medications: Active Medications Acetaminophen (Tylenol -) 650 mg PO Q12H PRN PRN Reason: FEVER Albuterol Sulfate (Ventolin Hfa Inhaler -) 2 puff IH Q4H PRN PRN Reason: SHORTNESS OF BREATH/WHEEZING Budesonide/Formoterol Fumarate (Symbicort 160/4.5mcg -) 1 puff IH BID [facility] Last Admin: 04/06/19 10:09 Dose: 1 puff Digoxin (Lanoxin -) 0.25 mg PO DAILY [facility] Last Admin: 04/06/19 13:40 Dose: 0.25 mg Enoxaparin Sodium (Lovenox -) 40 mg SQ DAILY [facility] Last Admin: 04/06/19 13:40 Dose: 40 mg Fentanyl (Sublimaze Injection -) 50 mcg IVPUSH [id number] PRN PRN Reason: PAIN-PACU ORDER X 4 DOSES ONLY Last Admin: 04/03/19 11:55 Dose: 50 mcg Gabapentin (Neurontin -) 600 mg PO TID [facility] Last Admin: 04/06/19 13:39 Dose: 600 mg Potassium Chloride/Dextrose/Sod Cl (D5-1/2ns+20 Meq Kcl -) 20 meq in 1,000 mls @ 100 mls/hr IV ASDIR [facility] Last Admin: 04/06/19 09:55 Dose: Not Given Sodium Phosphate 27 mm/ (Dextrose) 259 mls @ 64.75 mls/hr IVPB ONCE ONE Stop: 04/06/19 16:02 Insulin Aspart (Novolog Vial Sliding Scale -) 1 vial SQ Q6H [facility]; Protocol Last Admin: 04/06/19 10:00 Dose: Not Given Metoprolol Succinate (Toprol Xl -) 50 mg PO HS [facility] Last Admin: 04/05/19 22:08 Dose: 50 mg Metoprolol Succinate (Toprol Xl -) 100 mg PO AM [facility] Last Admin: 04/06/19 08:07 Dose: Not Given Ondansetron HCl (Zofran Injection) 4 mg IVPUSH Q6H PRN PRN Reason: NAUSEA Last Admin: 04/04/19 07:30 Dose: 4 mg Pantoprazole Sodium (Protonix Iv) 40 mg IVPUSH DAILY [facility] Last Admin: 04/06/19 10:03 Dose: 40 mg Prednisone (Deltasone -) 5 mg PO AM [facility] Last Admin: 04/06/19 07:06 Dose: 5 mg Prednisone (Deltasone -) 2.5 mg PO HS [facility] Last Admin: 04/05/19 22:08 Dose: 2.5 mg - Objective Vital Signs: Vital Signs Temperature 98.8 F 04/06/19 07:00 Pulse Rate 62 04/06/19 13:40 Respiratory Rate 18 04/06/19 07:00 Blood Pressure 114/53 L 04/06/19 07:00 O2 Sat by Pulse Oximetry (%) 92 L 04/05/19 21:00 Constitutional: Yes: No Distress, Calm Cardiovascular: Yes: Regular Rate and Rhythm, S1, S2 Respiratory: Yes: Regular, CTA Bilaterally, Other (coarse at bases) Gastrointestinal: Yes: Normal Bowel Sounds, Soft, Hypoactive Bowel Sounds, Other (surgical site w/o erytheme, discharge) Edema: No Neurological: Yes: Alert, Oriented Labs: CBC, BMP 04/06/19 06:45 04/06/19 06:45 INR, PTT INR 1.27 (0.83-1.09) H 04/04/19 05:40 Problem List - Problems (1) Atrial fibrillation with RVR Code(s): I48.91 - UNSPECIFIED ATRIAL FIBRILLATION (2) Near syncope Code(s): R55 - SYNCOPE AND COLLAPSE (3) Occult blood in stools Code(s): R19.5 - OTHER FECAL ABNORMALITIES (4) Anemia Code(s): D64.9 - ANEMIA, UNSPECIFIED Qualifiers: Anemia type: unspecified type Qualified Code(s): D64.9 - Anemia, unspecified (5) Dehydration Code(s): E86.0 - DEHYDRATION (6) Metastatic melanoma Code(s): C79.9 - SECONDARY MALIGNANT NEOPLASM OF UNSPECIFIED SITE (7) Abdominal abscess Code(s): TPR2834 - (8) Perforated bowel Code(s): K63.1 - PERFORATION OF INTESTINE (NONTRAUMATIC) (9) Abdominal mass Code(s): R19.00 - INTRA-ABD AND PELVIC SWELLING, MASS AND LUMP, UNSP SITE Assessment/Plan s/p adb mass resection and perforated SB repair IV abtx Still NPO ID, GI, Onco, Surgical, IR consults are appreciated. Incentive spirometry (pt's at bedside to remind pt to use it). To start Lovenox, per Sx SCD's OOB daily AM labs
--- NOTE | 2019-04-06 19:28 | PN ---
Progress Note, Physician History of Present Illness: No complaint Denies abd pain. No BM yet. - Current Medication List Current Medications: Active Medications Acetaminophen (Tylenol -) 650 mg PO Q12H PRN PRN Reason: FEVER Albuterol Sulfate (Ventolin Hfa Inhaler -) 2 puff IH Q4H PRN PRN Reason: SHORTNESS OF BREATH/WHEEZING Budesonide/Formoterol Fumarate (Symbicort 160/4.5mcg -) 1 puff IH BID [facility] Last Admin: 04/06/19 10:09 Dose: 1 puff Digoxin (Lanoxin -) 0.25 mg PO DAILY [facility] Last Admin: 04/06/19 13:40 Dose: 0.25 mg Enoxaparin Sodium (Lovenox -) 40 mg SQ DAILY [facility] Last Admin: 04/06/19 13:40 Dose: 40 mg Fentanyl (Sublimaze Injection -) 50 mcg IVPUSH [id number] PRN PRN Reason: PAIN-PACU ORDER X 4 DOSES ONLY Last Admin: 04/03/19 11:55 Dose: 50 mcg Gabapentin (Neurontin -) 600 mg PO TID [facility] Last Admin: 04/06/19 13:39 Dose: 600 mg Hydromorphone HCl (Dilaudid Vial -) 2 mg IVPB Q4H PRN PRN Reason: PAIN LEVEL 4 - 6 Last Admin: 04/06/19 15:23 Dose: 2 mg Potassium Chloride/Dextrose/Sod Cl (D5-1/2ns+20 Meq Kcl -) 20 meq in 1,000 mls @ 100 mls/hr IV ASDIR [facility] Last Admin: 04/06/19 09:55 Dose: Not Given Insulin Aspart (Novolog Vial Sliding Scale -) 1 vial SQ Q6H [facility]; Protocol Last Admin: 04/06/19 15:31 Dose: Not Given Metoprolol Succinate (Toprol Xl -) 50 mg PO HS [facility] Last Admin: 04/05/19 22:08 Dose: 50 mg Metoprolol Succinate (Toprol Xl -) 100 mg PO AM [facility] Last Admin: 04/06/19 08:07 Dose: Not Given Ondansetron HCl (Zofran Injection) 4 mg IVPUSH Q6H PRN PRN Reason: NAUSEA Last Admin: 04/04/19 07:30 Dose: 4 mg Pantoprazole Sodium (Protonix Iv) 40 mg IVPUSH DAILY [facility] Last Admin: 04/06/19 10:03 Dose: 40 mg Prednisone (Deltasone -) 5 mg PO AM [facility] Last Admin: 04/06/19 07:06 Dose: 5 mg Prednisone (Deltasone -) 2.5 mg PO HS [facility] Last Admin: 04/05/19 22:08 Dose: 2.5 mg - Objective Vital Signs: Vital Signs Temperature 98.1 F 04/06/19 18:00 Pulse Rate 55 L 04/06/19 18:00 Respiratory Rate 18 04/06/19 18:00 Blood Pressure 127/56 L 04/06/19 18:00 O2 Sat by Pulse Oximetry (%) 93 L 04/06/19 09:00 Constitutional: Yes: No Distress Eyes: Yes: Conjunctiva Clear Cardiovascular: Yes: Regular Rate and Rhythm Respiratory: Yes: Regular, CTA Bilaterally Gastrointestinal: Yes: Soft Edema: No Labs: CBC, BMP 04/06/19 06:45 04/06/19 06:45 INR, PTT INR 1.27 (0.83-1.09) H 04/04/19 05:40 Assessment/Plan 63M with DM, HLD, Afib, not on AC due to GI bleed and falls, stage 4 melanoma, s /p multiple prior surgeries including left kidney resection, craniotomy 12/2017, thoracic vertebral surgery in 01/2018 admitted 03/27/19, s/p Theresa and Carmita ( >3 years ago), admitted with near syncope. Found to have abdominal mass and lymphadenopathy s/p resection of abd mass and small bowel. Preliminary path reveals melanoma- special stains for confirmation pending .Molecular studies if confirmed.
[2019-04-07] MEDS: D5-1/2NS+20 MEQ KCL - 20 MEQ/1,000 ML INFUS.BAG IV SCH ×3 (00:27→11:25)
[2019-04-07] MEDS: INSULIN SLIDING SCALE (NOVOLOG) 1 VIAL SQ SCH ×4 (03:44→21:59)
[2019-04-07] MEDS: predniSONE 5 MG TABLET (UD) PO SCH ×2 (06:17→21:59)
[2019-04-07] MEDS: GABAPENTIN 300 MG CAPSULE (FP) PO SCH ×3 (06:17→21:58)
[2019-04-07 07:23] LABS: BASO % 0.4 % (0-2.0); EOS % 1.9 % (0-4.5); HEMATOCRIT 34.8 % (35.4-49); HEMOGLOBIN 11.3 GM/dL (11.7-16.9); LYMPH % 13.1 % (8-40); MCH 27.7 pg (25.7-33.7); MCHC 32.3 g/dl (32.0-35.9); MEAN CELL VOLUME 85.7 fl (80-96); MEAN PLT VOLUME 8.1 fl (7.5-11.1); MONO % 6.5 % (3.8-10.2); NEUT % 78.1 % (42.8-82.8); PLATELET COUNT 253 K/MM3 (134-434); RBC 4.07 M/mm3 (4.00-5.60); RDW 17.4 % (11.9-15.9); WHITE BLOOD COUNT 6.5 K/mm3 (4.0-10.0)
[2019-04-07 07:43] LABS: BLOOD UREA NITROGEN 8.2 mg/dL (7-18); CALCIUM 8.1 mg/dL (8.5-10.1); CREATININE 0.7 mg/dL (0.55-1.3); MAGNESIUM 1.9 mg/dL (1.8-2.4); PHOSPHOROUS 2.6 mg/dL (2.5-4.9); POTASSIUM 3.7 mmol/L (3.5-5.1)
[2019-04-07] MEDS: HYDROmorphone HCl 2 MG/ML VIAL IVPB PRN ×2 (09:35→16:27)
[2019-04-07] MEDS: ENOXAPARIN NA (PORCINE) 40 MG/0.4 ML DISP.SYRIN SQ SCH (09:35)
[2019-04-07] MEDS: PANTOPRAZOLE SODIUM 40 MG VIAL IVPUSH SCH (09:36)
[2019-04-07] MEDS: DIGOXIN 0.25 MG TABLET (FP) PO SCH (09:36)
[2019-04-07] MEDS: BUDESONIDE/FORMETEROL FUMARATE 160/4.5 mcg INHALER IH SCH ×2 (09:45→21:58)
--- NOTE | 2019-04-07 11:42 | PN ---
Progress Note (short form) - Note Progress Note: surgery pt seen and examined. continues to improve. now significant flatus. Laboratory Tests 04/04/19 04/07/19 04/07/19 05:40 06:00 06:44 WBC 6.5 Hgb 11.3 L Plt Count 253 INR 1.27 H Sodium 138 Potassium 3.7 Phosphorus 2.6 Magnesium 1.9 A/P 1) pod#4- clear liquids, stop ivf. ileus improving. can likely start full liquids tomorrow and d/c home on 1 week liquids if tolerates. 2) prophylaxis- lovenox, protonix, oob, spirometer 3) abd mass- appeared malignant. awaiting path. off abx. 4) htn, dm, afib- on home meds per medical team. sliding scale until starts diet. surgically stable for full anticoagulation for afib if indicated starting Monday. (pt had it held for gi bleed but now tumor removed should be ok) 5) retro-rectus block, dilaudid, oxycodone 6) hypernatremia- resolved 7) hypophosphatemia- resolved 8) hypomagnesemia- resolved
--- NOTE | 2019-04-07 14:44 | PN ---
Progress Note, Physician Chief Complaint: OOB to chair passed gas started fluids diet; BGT out tolerates OK no N/V afebrile no pain; no BM yet - Current Medication List Current Medications: Active Medications Acetaminophen (Tylenol -) 650 mg PO Q12H PRN PRN Reason: FEVER Albuterol Sulfate (Ventolin Hfa Inhaler -) 2 puff IH Q4H PRN PRN Reason: SHORTNESS OF BREATH/WHEEZING Budesonide/Formoterol Fumarate (Symbicort 160/4.5mcg -) 1 puff IH BID [facility] Last Admin: 04/07/19 09:45 Dose: 1 puff Digoxin (Lanoxin -) 0.25 mg PO DAILY [facility] Last Admin: 04/07/19 09:36 Dose: 0.25 mg Enoxaparin Sodium (Lovenox -) 40 mg SQ DAILY [facility] Last Admin: 04/07/19 09:35 Dose: 40 mg Fentanyl (Sublimaze Injection -) 50 mcg IVPUSH [id number] PRN PRN Reason: PAIN-PACU ORDER X 4 DOSES ONLY Last Admin: 04/03/19 11:55 Dose: 50 mcg Gabapentin (Neurontin -) 600 mg PO TID [facility] Last Admin: 04/07/19 06:17 Dose: 600 mg Hydromorphone HCl (Dilaudid Vial -) 2 mg IVPB Q4H PRN PRN Reason: PAIN LEVEL 4 - 6 Last Admin: 04/07/19 09:35 Dose: 2 mg Insulin Aspart (Novolog Vial Sliding Scale -) 1 vial SQ Q6H [facility]; Protocol Last Admin: 04/07/19 09:47 Dose: Not Given Metoprolol Succinate (Toprol Xl -) 50 mg PO HS [facility] Last Admin: 04/06/19 23:09 Dose: 50 mg Metoprolol Succinate (Toprol Xl -) 100 mg PO AM [facility] Last Admin: 04/07/19 06:17 Dose: 100 mg Ondansetron HCl (Zofran Injection) 4 mg IVPUSH Q6H PRN PRN Reason: NAUSEA Last Admin: 04/04/19 07:30 Dose: 4 mg Pantoprazole Sodium (Protonix -) 40 mg PO DAILY [facility] Prednisone (Deltasone -) 5 mg PO AM [facility] Last Admin: 04/07/19 06:17 Dose: 5 mg Prednisone (Deltasone -) 2.5 mg PO HS [facility] Last Admin: 04/06/19 22:56 Dose: 2.5 mg - Objective Vital Signs: Vital Signs Temperature 98.4 F 04/07/19 14:00 Pulse Rate 74 04/07/19 14:00 Respiratory Rate 18 04/07/19 14:00 Blood Pressure 126/71 04/07/19 14:00 O2 Sat by Pulse Oximetry (%) 97 04/07/19 09:00 Constitutional: Yes: No Distress, Calm Eyes: Yes: Conjunctiva Clear HENT: Yes: Atraumatic Neck: Yes: Supple Cardiovascular: No: Regular Rate and Rhythm Respiratory: Yes: Diminished Gastrointestinal: Yes: Soft. No: Tenderness (mild with palp only) Genitourinary: No: Hematuria Musculoskeletal: No: Joint Stiffness, Joint Swelling Extremities: No: Cold, Cool Edema: No Integumentary: No: Rash, Venous Stasis Changes Neurological: Yes: WNL, Alert, Oriented ...Motor Strength: WNL Psychiatric: Yes: WNL, Alert, Oriented. No: Agitated, Suicidal Ideation Labs: CBC, BMP 04/07/19 06:44 04/07/19 06:00 INR, PTT INR 1.27 (0.83-1.09) H 04/04/19 05:40 - ....Imaging Other: Report Reviewed Assessment/Plan The patient is a 63 year old male with a PMH of HTN, HLD, DM, Afib (not on anticoagulation), and stage four melanoma with metastasis to the brain s/p craniotomy and mets to kidney s/p nephrectomy admitted with a pre-syncopal episode, s/p laparotomy abdominal mass h/o melanoma po fluid diet; IVF IV atb; pain meds prn IV ATB per ID; path f/u hopefully tomorrow results cardio, GI and onc f/u check labs in am DVT pfx per surgery d.w pt and Tyrone at bedside d/w staff
[2019-04-07] MEDS: ALPRAZolam 0.25 MG TABLET PO PRN (16:57)
[2019-04-08] MEDS: INSULIN SLIDING SCALE (NOVOLOG) 1 VIAL SQ SCH ×4 (04:51→21:33)
[2019-04-08] MEDS: HYDROmorphone HCl 2 MG/ML VIAL IVPB PRN ×3 (04:51→12:38)
[2019-04-08] MEDS: predniSONE 5 MG TABLET (UD) PO SCH ×2 (06:08→21:33)
[2019-04-08] MEDS: GABAPENTIN 300 MG CAPSULE (FP) PO SCH ×3 (06:08→21:33)
--- NOTE | 2019-04-08 07:32 | PN ---
Progress Note, Physician Chief Complaint: in bed on clear fluids passed gas no BM yet some pain but controlled with meds - Current Medication List Current Medications: Active Medications Acetaminophen (Tylenol -) 650 mg PO Q12H PRN PRN Reason: FEVER Albuterol Sulfate (Ventolin Hfa Inhaler -) 2 puff IH Q4H PRN PRN Reason: SHORTNESS OF BREATH/WHEEZING Alprazolam (Xanax -) 0.25 mg PO Q12H PRN PRN Reason: ANXIETY Last Admin: 04/07/19 16:57 Dose: 0.25 mg Budesonide/Formoterol Fumarate (Symbicort 160/4.5mcg -) 1 puff IH BID [facility] Last Admin: 04/07/19 21:58 Dose: 1 puff Digoxin (Lanoxin -) 0.25 mg PO DAILY [facility] Last Admin: 04/07/19 09:36 Dose: 0.25 mg Enoxaparin Sodium (Lovenox -) 40 mg SQ DAILY [facility] Last Admin: 04/07/19 09:35 Dose: 40 mg Gabapentin (Neurontin -) 600 mg PO TID [facility] Last Admin: 04/08/19 06:08 Dose: 600 mg Hydromorphone HCl (Dilaudid Vial -) 2 mg IVPB Q4H PRN PRN Reason: PAIN LEVEL 4 - 6 Last Admin: 04/08/19 04:51 Dose: 2 mg Insulin Aspart (Novolog Vial Sliding Scale -) 1 vial SQ Q6H [facility]; Protocol Last Admin: 04/08/19 04:51 Dose: 2 units Metoprolol Succinate (Toprol Xl -) 50 mg PO HS [facility] Last Admin: 04/07/19 21:58 Dose: 50 mg Metoprolol Succinate (Toprol Xl -) 100 mg PO AM [facility] Last Admin: 04/08/19 06:08 Dose: 100 mg Ondansetron HCl (Zofran Injection) 4 mg IVPUSH Q6H PRN PRN Reason: NAUSEA Last Admin: 04/04/19 07:30 Dose: 4 mg Pantoprazole Sodium (Protonix -) 40 mg PO DAILY [facility] Prednisone (Deltasone -) 5 mg PO AM [facility] Last Admin: 04/08/19 06:08 Dose: 5 mg Prednisone (Deltasone -) 2.5 mg PO HS [facility] Last Admin: 04/07/19 21:59 Dose: 2.5 mg - Objective Vital Signs: Vital Signs Temperature 98.2 F 04/08/19 05:55 Pulse Rate 80 04/08/19 05:55 Respiratory Rate 18 04/08/19 05:55 Blood Pressure 104/51 L 04/08/19 05:55 O2 Sat by Pulse Oximetry (%) 97 04/07/19 21:00 Constitutional: Yes: No Distress, Calm Eyes: Yes: Conjunctiva Clear HENT: Yes: Atraumatic Neck: Yes: Supple Cardiovascular: Yes: Regular Rate and Rhythm Respiratory: Yes: CTA Bilaterally Gastrointestinal: Yes: Soft, Tenderness (on surgical site) Genitourinary: No: Hematuria Musculoskeletal: No: Joint Stiffness, Joint Swelling Extremities: No: Cold, Cool, Cyanosis Edema: No Integumentary: No: Rash, Venous Stasis Changes Neurological: Yes: WNL, Alert, Oriented ...Motor Strength: WNL Psychiatric: Yes: WNL, Alert, Oriented. No: Agitated, Suicidal Ideation Labs: CBC, BMP 04/07/19 06:44 04/07/19 06:00 INR, PTT INR 1.27 (0.83-1.09) H 04/04/19 05:40 - ....Imaging Other: Report Reviewed Assessment/Plan The patient is a 63 year old male with a PMH of HTN, HLD, DM, Afib (not on anticoagulation), and stage four melanoma with metastasis to the brain s/p craniotomy and mets to kidney s/p nephrectomy admitted with a pre-syncopal episode, s/p laparotomy abdominal mass h/o melanoma po fluid diet; advance as tolerated OOB to chair; PT rehab for ambulation; falls pfx d/w pt IVF IV atb; pain meds prn IV ATB per ID; path f/u cardio, GI and onc f/u check labs in am DVT pfx per surgery d.w pt and staff
[2019-04-08 08:19] LABS: BASO % 0.5 % (0-2.0); HEMATOCRIT 37.1 % (35.4-49); HEMOGLOBIN 12.2 GM/dL (11.7-16.9); LYMPH % 14.8 % (8-40); MCH 28.1 pg (25.7-33.7); MCHC 32.9 g/dl (32.0-35.9); MEAN CELL VOLUME 85.5 fl (80-96); MEAN PLT VOLUME 7.9 fl (7.5-11.1); MONO % 7.4 % (3.8-10.2); NEUT % 74.3 % (42.8-82.8); PLATELET COUNT 273 K/MM3 (134-434); RBC 4.34 M/mm3 (4.00-5.60); RDW 17.7 % (11.9-15.9); WHITE BLOOD COUNT 8.7 K/mm3 (4.0-10.0)
[2019-04-08 08:32] LABS: BLOOD UREA NITROGEN 8.3 mg/dL (7-18); CALCIUM 8.2 mg/dL (8.5-10.1); CREATININE 0.7 mg/dL (0.55-1.3); MAGNESIUM 1.8 mg/dL (1.8-2.4); PHOSPHOROUS 3.1 mg/dL (2.5-4.9)
--- NOTE | 2019-04-08 11:00 | PATH ---
Surgical Pathology Report Patient Name: BRANDON RECIO [facility]. Rec. #: [id number] /Age/Gender: 1955 (Age: 63) / M Account: [id number] Location: 4 SO PEDS/ADOL Taken: 04/03/2019 Received: 04/03/2019 Reported: 04/08/2019 Physicians: Chad Wang Specimen(s) Received A: FOREIGN BODY (OLD MESH) AND SOFT TISSUE B: PORTION OF SMALL BOWEL C: RECURRENT INCARCERATED INCISIONAL HERNIA SAC WITH CONTENTS Clinical History Abdominal mass Final Diagnosis A. FOREIGN BODY (OLD MESH) AND SOFT TISSUE, REMOVAL: FIBROADIPOSE TISSUE WITH PREDOMINANTLY CHRONIC AND FOCAL ACUTE INFLAMMATION, HISTIOCYTIC INFILTRATE, AND FOREIGN BODY GIANT CELL REACTION, ASSOCIATED WITH FOREIGN BODY MATERIAL (MESH). B. SMALL BOWEL, PORTION, RESECTION: MALIGNANT MELANOMA. TUMOR SHOWS TRANSMURAL INVOLVEMENT OF SMALL BOWEL. TUMOR MEASURES 10 X 11 X 1.5 CM (GROSS MEASUREMENT). FOCAL LYMPHOVASCULAR INVASION IDENTIFIED. SURGICAL MARGINS ARE NEGATIVE (PROXIMAL, DISTAL, MESENTERIC/RADIAL).ONE LYMPH NODE NEGATIVE FOR MELANOMA (0/1). SEE COMMENT. C. RECURRENT INCARCERATED INCISIONAL HERNIA SAC AND CONTENTS, REPAIR: HERNIA SAC AND CONTENTS. Comment: Part B, The tumor is comprised of malignant cells with nuclear pleomorphism, increased nucleus to cytoplasmic ratio, coarse chromatin, prominent eosinophilic nucleoli, dispersed as sheets and associated with extensive necrosis. The tumor appears to infiltrate and replace full thickness/transmural involvement of bowel wall. Immunohistochemical stains performed and interpreted at [facility] show the tumor is positive for S100; while negative for AE1/3, CD45, and chromogranin. Additional immunohistochemical stains performed at [place], [place] ([id number]) and interpreted at [facility] show the tumor is positive for SOX10, and Melan-A; while negative for HMB-45. Histomorphology and immunophenotype support the above diagnosis. Prior history of melanoma noted. Findings discussed with Dr. Collins. Positive and negative controls (internal if applicable) show appropriate results. Electronically Signed Arleen Aguiar M.D. Gross Description A. Received in formalin labeled "foreign body (abdomen), old mesh" is a foreign body material consistent with mesh with adherent soft tissue measuring 3 x 2.5 x 2 cm. Body Engineer sections are submitted in one cassette. B. Received in formalin labeled "portion of small bowel" is portion of small bowel measuring 15 cm in length with scanty nicol-intestinal fat. There is a long single suture designating the proximal end and 2 long sutures designating the distal end of bowel, as per surgeon. Luminal circumference varies from 2 cm to 11 cm. There is a 10 x 11 x 1.5 cm, circumferential mass continuous with the proximal bowel segment, but sectioned off from the distal segment. The mass is 10 cm from distal and proximal margins, and 2 cm from radial/mesenteric margin. Serosal surface is inked in blue. Sectioning shows the mass involves full thickness of bowel wall, with a nodular, ulcerated, and partially necrotic surface. Cut surface is solid-rivers and firm. Remainder of the proximal and distal bowel shows normal rugal folds. Scanty nicol-intestinal fat is dissected for lymph nodes. No definitive lymph nodes are identified. Body Engineer sections are submitted in 16 cassettes as follows: 1- Proximal margin; 2- distal margin; 3-5- mass, full section; 6-7- mass and adjacent proximal bowel; 8- Body Engineer section, proximal bowel; 9- payroll representative section, distal bowel; 10- radial margin; 11- mass and distal portion of bowel; 12-13- mass with serosal surface; 14-16- Body Engineer, nicol-intestinal adipose tissue. C. Received in formalin labeled "recurrent incarcerated incisional hernia sac and contents" is a pink-rivers to yellow-rivers fibromembranous tissue consistent with hernia sac and associated fibroadipose tissue. Body Engineer sections are submitted in one cassette. GAGE/04/03/2019 jerome/04/03/2019
[2019-04-08] MEDS: PANTOPRAZOLE 40 MG TABLET (FP) PO SCH (11:18)
[2019-04-08] MEDS: ENOXAPARIN NA (PORCINE) 40 MG/0.4 ML DISP.SYRIN SQ SCH (11:18)
[2019-04-08] MEDS: DIGOXIN 0.25 MG TABLET (FP) PO SCH (11:19)
[2019-04-08] MEDS: BUDESONIDE/FORMETEROL FUMARATE 160/4.5 mcg INHALER IH SCH ×2 (11:23→21:34)
--- NOTE | 2019-04-08 11:35 | PN ---
Progress Note (short form) - Note Progress Note: Subjective: Patient seen and examined at bedside. No events overnight. no new complaints. Objective: Vital Signs Temperature 98.2 F 04/08/19 05:55 Pulse Rate 88 04/08/19 11:19 Respiratory Rate 18 04/08/19 05:55 Blood Pressure 104/51 L 04/08/19 05:55 O2 Sat by Pulse Oximetry (%) 97 04/07/19 21:00 Gen: Patient OOB to chair, awake and alert. Cardio: regular rate and rhythm. S1, S2 heard. No murmurs, gallops, rubs Pulm: Lungs CTA b/l down to the bases. Abdomen: moderate tenderness to palpation. bowel sound sheard. . CBC, BMP 04/08/19 07:18 04/08/19 07:18 Assessment & plan: The patient is a 63 y/o f w/ PMH metastatic melanoma who presented w/ dizziness , L chest pain and found to have a 10 cm X 9 cm X 5 cm mass in his abdomen w/ associated lymphadenopathy. #abdominal mass r/o disease recurrence -POD #5 mass resection -Post op mgmt per surgery -preliminary pathology results show melanoma. -awaiting final path and tissue tests #anemia -likely 2/2 AOCD -monitor CBC -maintain normal transfusion thresholds.
[2019-04-08] MEDS: SIMETHICONE 80 MG TAB.CHEW (FP) PO PRN ×2 (12:38→19:48)
[2019-04-08] MEDS ORDERED: HYDROmorphone HCl 2 MG/ML VIAL IVPB PRN (12:53)
--- NOTE | 2019-04-08 12:55 | PN ---
Progress Note (short form) - Note Progress Note: POD#5 Pt states that he is tolerating clear liquids, No nausea or emesis. Small amount of flatus passed, no BM. Was oob to chair but became tachycardic with ambulating. Vital Signs Period Temp Pulse Resp BP Sys/Betancourt Pulse Ox Last 24 Hr 97.9 F-98.4 F 74-88 18-18 104-126/51-73 97 GEN: A&0x3, NAD ABD: soft, non-distended, inc tenderness. Inc c/d/i with jeannie LE: FRED/SCDS in place. No calf tenderness or swelling noted b/l CBC, BMP /30/ 07:18 // 07:18 A/P: 63 yo male s/p exploratory laparotomy, en bloc resection abd mass with small bowel resection x 2, removal foreign body (mesh), primary repair recurrent incision hernia, primary repair epigastric hernia, exstensive lysis of adhesions, lavage Pt on clears, wound continue as tolerated. D/w Dr. Wang may advance to fulls Added tylenol(standing for 24 hours) and decreased dilaudid dose, to decrease narcotics slowing bowel function Continue oob to chair, ambulate when clinically stable Problem List - Problems (1) Metastatic melanoma Code(s): C79.9 - SECONDARY MALIGNANT NEOPLASM OF UNSPECIFIED SITE
[2019-04-08] MEDS: ACETAMINOPHEN 1000 MG/100 ML VIAL (NON FORMULARY) IVPB SCH ×2 (14:04→19:39)
[2019-04-08] MEDS: ALPRAZolam 0.25 MG TABLET PO PRN (22:49)
[2019-04-09] MEDS: ACETAMINOPHEN 1000 MG/100 ML VIAL (NON FORMULARY) IVPB SCH ×2 (01:23→06:44)
[2019-04-09] MEDS: INSULIN SLIDING SCALE (NOVOLOG) 1 VIAL SQ SCH ×4 (03:40→22:39)
[2019-04-09] MEDS: predniSONE 5 MG TABLET (UD) PO SCH ×2 (06:44→22:40)
[2019-04-09] MEDS: GABAPENTIN 300 MG CAPSULE (FP) PO SCH ×3 (06:44→22:40)
[2019-04-09] MEDS: SIMETHICONE 80 MG TAB.CHEW (FP) PO PRN (07:05)
--- NOTE | 2019-04-09 08:47 | PN ---
Progress Note (short form) - Note Progress Note: POD#6 Pt had a BM x1 this am. Soft, without straining or blood. No nausea or emesis with fulls. Pain controlled overnight feels like the tylenol helped. Vital Signs Period Temp Pulse Resp BP Sys/Betancourt Pulse Ox Last 24 Hr 98.0 F-98.2 F 70-88 18-18 93-155/53-73 94-96 GEN: A&0x3, NAD ABD: soft, non-distended, non-tender. Inc c/d/i with jeannie. A/P: 63 yo male s/p exploratory laparotomy, en bloc resection abd mass with small bowel resection x 2, removal foreign body (mesh), primary repair recurrent incision hernia, primary repair epigastric hernia, exstensive lysis of adhesions, lavage Advance diet to diabetic diet Continue oob to chair/ambulate Tylenol as needed and change to oral pain medications D/w Dr. Wang Problem List - Problems (1) Metastatic melanoma Code(s): C79.9 - SECONDARY MALIGNANT NEOPLASM OF UNSPECIFIED SITE
[2019-04-09] MEDS: DIGOXIN 0.25 MG TABLET (FP) PO SCH (09:04)
[2019-04-09] MEDS: PANTOPRAZOLE 40 MG TABLET (FP) PO SCH (09:04)
[2019-04-09] MEDS: ENOXAPARIN NA (PORCINE) 40 MG/0.4 ML DISP.SYRIN SQ SCH (09:05)
[2019-04-09] MEDS ORDERED: HYDROmorphone HCL 2 MG TABLET PO PRN (09:11)
[2019-04-09] MEDS: BUDESONIDE/FORMETEROL FUMARATE 160/4.5 mcg INHALER IH SCH ×2 (10:08→22:40)
[2019-04-09] MEDS: ALPRAZolam 0.25 MG TABLET PO PRN (14:03)
[2019-04-09] MEDS ORDERED: ACETAMINOPHEN 325 MG TABLET (FP) PO PRN ×2 (16:00→22:00)
--- NOTE | 2019-04-09 17:40 | PN ---
Progress Note, Physician Chief Complaint: in bed no new c/o passed BM and gas; walked a little in hallway; pain controlled ; on clear fluids diet - Current Medication List Current Medications: Active Medications Acetaminophen (Tylenol -) 650 mg PO Q6H PRN PRN Reason: PAIN LEVEL 1-5 Albuterol Sulfate (Ventolin Hfa Inhaler -) 2 puff IH Q4H PRN PRN Reason: SHORTNESS OF BREATH/WHEEZING Alprazolam (Xanax -) 0.25 mg PO Q12H PRN PRN Reason: ANXIETY Last Admin: 04/09/19 14:03 Dose: 0.25 mg Budesonide/Formoterol Fumarate (Symbicort 160/4.5mcg -) 1 puff IH BID [facility] Last Admin: 04/09/19 10:08 Dose: 1 puff Digoxin (Lanoxin -) 0.25 mg PO DAILY [facility] Last Admin: 04/09/19 09:04 Dose: 0.25 mg Enoxaparin Sodium (Lovenox -) 40 mg SQ DAILY [facility] Last Admin: 04/09/19 09:05 Dose: 40 mg Gabapentin (Neurontin -) 600 mg PO TID [facility] Last Admin: 04/09/19 13:02 Dose: 600 mg Hydromorphone HCl (Dilaudid -) 2 mg PO Q8H PRN PRN Reason: PAIN LEVEL 6-10 Last Admin: 04/09/19 14:00 Dose: 2 mg Insulin Aspart (Novolog Vial Sliding Scale -) 1 vial SQ Q6H [facility]; Protocol Last Admin: 04/09/19 14:53 Dose: 2 units Metoprolol Succinate (Toprol Xl -) 50 mg PO HS [facility] Last Admin: 04/08/19 21:32 Dose: 50 mg Metoprolol Succinate (Toprol Xl -) 100 mg PO AM [facility] Last Admin: 04/09/19 06:45 Dose: 100 mg Ondansetron HCl (Zofran Injection) 4 mg IVPUSH Q6H PRN PRN Reason: NAUSEA Last Admin: 04/04/19 07:30 Dose: 4 mg Pantoprazole Sodium (Protonix -) 40 mg PO DAILY [facility] Last Admin: 04/09/19 09:04 Dose: 40 mg Prednisone (Deltasone -) 5 mg PO AM [facility] Last Admin: 04/09/19 06:44 Dose: 5 mg Prednisone (Deltasone -) 2.5 mg PO HS [facility] Last Admin: 04/08/19 21:33 Dose: 2.5 mg Simethicone (Mylicon -) 80 mg PO BID PRN PRN Reason: GAS Last Admin: 04/09/19 07:05 Dose: 80 mg - Objective Vital Signs: Vital Signs Temperature 98.3 F 04/09/19 14:30 Pulse Rate 96 H 04/09/19 14:30 Respiratory Rate 18 04/09/19 14:30 Blood Pressure 96/44 L 04/09/19 14:30 O2 Sat by Pulse Oximetry (%) 97 04/09/19 09:00 Constitutional: Yes: No Distress, Calm Eyes: Yes: Conjunctiva Clear HENT: Yes: Atraumatic Neck: Yes: Supple Cardiovascular: Yes: Regular Rate and Rhythm Respiratory: Yes: CTA Bilaterally Gastrointestinal: Yes: Soft, Tenderness (incision site only; wound not read no DC or bleed healing well) Genitourinary: No: [place] Present, Hematuria Musculoskeletal: No: Joint Stiffness, Joint Swelling Extremities: No: Cold, Cool, Cyanosis Edema: No Integumentary: No: Rash, Venous Stasis Changes Wound/Incision: Yes: Clean/Dry, Well Approximated Neurological: Yes: WNL, Alert, Oriented ...Motor Strength: WNL Psychiatric: Yes: WNL, Alert, Oriented. No: Agitated, Suicidal Ideation Labs: CBC, BMP 04/08/19 07:18 04/08/19 07:18 INR, PTT INR 1.27 (0.83-1.09) H 04/04/19 05:40 - ....Imaging Other: Report Reviewed Assessment/Plan The patient is a 63 year old male with a PMH of HTN, HLD, DM, Afib (not on anticoagulation), and stage four melanoma with metastasis to the brain s/p craniotomy and mets to kidney s/p nephrectomy admitted with a pre-syncopal episode, s/p laparotomy abdominal mass h/o melanoma po fluid diet; advance as tolerated OOB to chair; PT rehab for ambulation; falls pfx d/w pt IVF IV atb; pain meds prn IV ATB per ID; path c/w metastatic melanoma; d/w ONC dr Collins rec pt to go to [facility] for plan of treatment d/w pt and they are aware cardio, GI and onc f/u OOB to chair, ambulate with PT pain control DVT pfx per surgery d.w pt and staff DC planning home with VNS
[2019-04-10] MEDS: INSULIN SLIDING SCALE (NOVOLOG) 1 VIAL SQ SCH ×4 (03:49→21:51)
[2019-04-10] MEDS: ACETAMINOPHEN 325 MG TABLET (FP) PO PRN ×3 (03:53→15:52)
[2019-04-10] MEDS: ALPRAZolam 0.25 MG TABLET PO PRN ×2 (03:54→21:52)
[2019-04-10] MEDS: GABAPENTIN 300 MG CAPSULE (FP) PO SCH ×3 (06:40→21:53)
[2019-04-10] MEDS: predniSONE 5 MG TABLET (UD) PO SCH ×2 (07:11→21:52)
--- NOTE | 2019-04-10 07:23 | PN ---
Progress Note (short form) - Note Progress Note: GENERAL SURGERY POD #7 s/p exploratory laparotomy, en bloc resection abd mass with small bowel resection x 2, removal foreign body (mesh), primary repair recurrent incision hernia, primary repair epigastric hernia, exstensive lysis of adhesions, lavage --> pathology confirms metastatic melanoma Seen and examined at bedside. Patient supine in bed. Resting comfortably with mild incisional tenderness. Pain is 3/10. Passing flatus and stooling. Voiding spontaneously. Conts to be OOB and ambulating. Tolerating liquid diet. Denies n/v/f/c, CP, palpitations, SOB or YI. Last Vital Signs Temp Pulse Resp BP Pulse Ox 98.3 F 77 18 113/69 95 04/10/19 01:37 04/10/19 01:37 04/10/19 01:37 04/10/19 01:37 04/09/19 20:43 PE GEN: A&0x3, NAD ABD: soft, non-distended, non-tender. [place] intact without signs of infection LE: SCDs bilat. Soft. Nt. Neg edema/swelling. Problem List - Problems (1) Metastatic melanoma Assessment/Plan: A/P: 63 yo male s/p exploratory laparotomy, en bloc resection abd mass with small bowel resection x 2, removal foreign body (mesh), primary repair recurrent incision hernia, primary repair epigastric hernia, exstensive lysis of adhesions, lavage Keep patient on liquids x 1 week Cont OOB and ambulate PO pain management AC was stopped prior too surgery due to GI bleed (most likely secondary to mets melanoma to SB. If no contraindications can resume his AC for afib f/u in 1 week for staple removal Above plan discussed with my attending and agrees. Cleared for ga home from surgery standpoint On behalf of Kathleen Aguero and Lacho that n you for the opportunity to participate in your patient's care Code(s): C79.9 - SECONDARY MALIGNANT NEOPLASM OF UNSPECIFIED SITE (2) Atrial fibrillation Code(s): I48.91 - UNSPECIFIED ATRIAL FIBRILLATION Qualifiers: Atrial fibrillation type: unspecified Qualified Code(s): I48.91 - Unspecified atrial fibrillation (3) Hyperglycemia Code(s): R73.9 - HYPERGLYCEMIA, UNSPECIFIED
[2019-04-10] MEDS ORDERED: PT OWN MED DRAWER 7, Y5N ONE (09:41)
[2019-04-10] MEDS: PANTOPRAZOLE 40 MG TABLET (FP) PO SCH (09:46)
[2019-04-10] MEDS: ENOXAPARIN NA (PORCINE) 40 MG/0.4 ML DISP.SYRIN SQ SCH (09:47)
[2019-04-10] MEDS: BUDESONIDE/FORMETEROL FUMARATE 160/4.5 mcg INHALER IH SCH ×2 (09:48→21:53)
[2019-04-10] MEDS: DIGOXIN 0.25 MG TABLET (FP) PO SCH (10:13)
--- NOTE | 2019-04-10 11:10 | PN ---
Progress Note, Physician Chief Complaint: in bed NAD feels well; had BM; clear fluids - Current Medication List Current Medications: Active Medications Acetaminophen (Tylenol -) 650 mg PO Q6H PRN PRN Reason: PAIN LEVEL 1-5 Last Admin: 04/10/19 09:46 Dose: 650 mg Albuterol Sulfate (Ventolin Hfa Inhaler -) 2 puff IH Q4H PRN PRN Reason: SHORTNESS OF BREATH/WHEEZING Alprazolam (Xanax -) 0.25 mg PO Q12H PRN PRN Reason: ANXIETY Last Admin: 04/10/19 03:54 Dose: 0.25 mg Budesonide/Formoterol Fumarate (Symbicort 160/4.5mcg -) 1 puff IH BID [facility] Last Admin: 04/10/19 09:48 Dose: 1 puff Digoxin (Lanoxin -) 0.25 mg PO DAILY [facility] Last Admin: 04/10/19 10:13 Dose: 0.25 mg Enoxaparin Sodium (Lovenox -) 40 mg SQ DAILY [facility] Last Admin: 04/10/19 09:47 Dose: 40 mg Gabapentin (Neurontin -) 600 mg PO TID [facility] Last Admin: 04/10/19 06:40 Dose: 600 mg Hydromorphone HCl (Dilaudid -) 2 mg PO Q8H PRN PRN Reason: PAIN LEVEL 6-10 Last Admin: 04/09/19 14:00 Dose: 2 mg Insulin Aspart (Novolog Vial Sliding Scale -) 1 vial SQ Q6H [facility]; Protocol Last Admin: 04/10/19 09:45 Dose: 7 units Metoprolol Succinate (Toprol Xl -) 50 mg PO HS [facility] Last Admin: 04/09/19 22:40 Dose: 50 mg Metoprolol Succinate (Toprol Xl -) 100 mg PO AM [facility] Last Admin: 04/10/19 07:10 Dose: 100 mg Ondansetron HCl (Zofran Injection) 4 mg IVPUSH Q6H PRN PRN Reason: NAUSEA Last Admin: 04/04/19 07:30 Dose: 4 mg Pantoprazole Sodium (Protonix -) 40 mg PO DAILY [facility] Last Admin: 04/10/19 09:46 Dose: 40 mg Prednisone (Deltasone -) 5 mg PO AM [facility] Last Admin: 04/10/19 07:11 Dose: 5 mg Prednisone (Deltasone -) 2.5 mg PO HS [facility] Last Admin: 04/09/19 22:40 Dose: 2.5 mg Simethicone (Mylicon -) 80 mg PO BID PRN PRN Reason: GAS Last Admin: 04/09/19 07:05 Dose: 80 mg - Objective Vital Signs: Vital Signs Temperature 98.0 F 04/10/19 06:00 Pulse Rate 100 H 04/10/19 10:13 Respiratory Rate 18 04/10/19 06:00 Blood Pressure 108/56 L 04/10/19 06:00 O2 Sat by Pulse Oximetry (%) 95 04/09/19 20:43 Constitutional: Yes: No Distress, Calm Eyes: Yes: Conjunctiva Clear HENT: Yes: Atraumatic Neck: Yes: Supple Cardiovascular: Yes: Regular Rate and Rhythm Respiratory: Yes: CTA Bilaterally Gastrointestinal: Yes: Soft. No: Tenderness Genitourinary: No: Hematuria Musculoskeletal: No: Joint Stiffness, Joint Swelling Extremities: No: Cold, Cool Edema: No Integumentary: No: Rash, Venous Stasis Changes Wound/Incision: Yes: Clean/Dry, Well Approximated Neurological: Yes: WNL, Alert, Oriented ...Motor Strength: WNL Psychiatric: Yes: WNL, Alert, Oriented. 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
--- NOTE | 2019-04-10 12:10 | PN.GI ---
GI Progress Note Subjective: GI NOte: Tolerating liquids. Discussed the need for another round of therapy for recurrent metastatic melanoma - Objective Vital Signs: Vital Signs Temperature 98 F 04/10/19 10:00 Pulse Rate 100 H 04/10/19 10:13 Respiratory Rate 18 04/10/19 10:00 Blood Pressure 100/53 L 04/10/19 10:00 O2 Sat by Pulse Oximetry (%) 95 04/10/19 09:00 Constitutional: Calm ...Auscultate: Yes: Hypoactive Bowel Sounds ...Palpate: Yes: Soft, Other (nontender) Labs: CBC, BMP 04/08/19 07:18 04/08/19 07:18 INR, PTT INR 1.27 (0.83-1.09) H 04/04/19 05:40 Assessment/Plan Assessment: - Recurrent melanoma now s/p resection Plan: -- Anticipate diet advance by surgical team, discharge and followup with Dr Collins Problem List - Problems (1) Metastatic melanoma Code(s): C79.9 - SECONDARY MALIGNANT NEOPLASM OF UNSPECIFIED SITE (2) Abdominal abscess Code(s): MVY7203 - (3) Gastroenteritis Code(s): K52.9 - NONINFECTIVE GASTROENTERITIS AND COLITIS, UNSPECIFIED (4) Nausea Code(s): R11.0 - NAUSEA (5) Occult blood in stools Code(s): R19.5 - OTHER FECAL ABNORMALITIES (6) Hernia of abdominal wall Code(s): K43.9 - VENTRAL HERNIA WITHOUT OBSTRUCTION OR GANGRENE (7) Near syncope Code(s): R55 - SYNCOPE AND COLLAPSE (8) Dehydration Code(s): E86.0 - DEHYDRATION (9) Atrial fibrillation Code(s): I48.91 - UNSPECIFIED ATRIAL FIBRILLATION Qualifiers: Atrial fibrillation type: unspecified Qualified Code(s): I48.91 - Unspecified atrial fibrillation (10) COPD (chronic obstructive pulmonary disease) Code(s): J44.9 - CHRONIC OBSTRUCTIVE PULMONARY DISEASE, UNSPECIFIED (11) Diabetes Code(s): E11.9 - TYPE 2 DIABETES MELLITUS WITHOUT COMPLICATIONS (12) Headache Code(s): R51 - HEADACHE (13) Intracranial mass Code(s): R90.0 - INTCRN SPACE-OCCUPYING LESION FOUND ON DX IMAGING OF CNSL (14) Atrial flutter Code(s): I48.92 - UNSPECIFIED ATRIAL FLUTTER Qualifiers: Atrial flutter type: unspecified Qualified Code(s): I48.92 - Unspecified atrial flutter (15) Metastatic melanoma Code(s): C79.9 - SECONDARY MALIGNANT NEOPLASM OF UNSPECIFIED SITE
--- NOTE | 2019-04-10 16:59 | PN ---
Progress Note (short form) - Note Progress Note: Patient seen and examined Spoke with Dr. Avalos Large mesenteric mass removed - path- melanoma. Retroperitoneal mass wrapped around SMA remaining which was non resectable. Small liver lesion - not seen , but felt. Did not seem to be melanoma - according to Dr. Avalos. Tried contacting Dr. Myrick - patients oncologist at [facility]. Waiting for return call. In interim, when able to be discharged, will follow up as out patient. Will request [facility] 1 molecular studies on specimen to help direct future therapy.
[2019-04-11] MEDS: INSULIN SLIDING SCALE (NOVOLOG) 1 VIAL SQ SCH ×2 (06:24→10:17)
[2019-04-11] MEDS: predniSONE 5 MG TABLET (UD) PO SCH (06:25)
[2019-04-11] MEDS: GABAPENTIN 300 MG CAPSULE (FP) PO SCH (06:25)
[2019-04-11 08:31] VITALS: PULSE 68
[2019-04-11] MEDS: PANTOPRAZOLE 40 MG TABLET (FP) PO SCH (09:09)
[2019-04-11] MEDS: DIGOXIN 0.25 MG TABLET (FP) PO SCH (09:09)
[2019-04-11] MEDS: BUDESONIDE/FORMETEROL FUMARATE 160/4.5 mcg INHALER IH SCH (09:09)
[2019-04-11] MEDS: ENOXAPARIN NA (PORCINE) 40 MG/0.4 ML DISP.SYRIN SQ SCH (09:09)
[2019-04-11 09:41] VITALS: BP 96/66; TEMP 98.8
--- NOTE | 2019-04-11 11:59 | DS ---
Physical Examination Vital Signs: Vital Signs Temperature 98.8 F 04/11/19 09:40 Pulse Rate 68 04/11/19 09:40 Respiratory Rate 18 04/11/19 09:40 Blood Pressure 96/66 04/11/19 09:40 O2 Sat by Pulse Oximetry (%) 96 04/11/19 09:00 Findings/Remarks: in bed NAD VSS afebrile ate OK got OOB at bedside aware of f/u needed and instructions scripts done as needed Constitutional: Yes: No Distress, Calm Eyes: Yes: Conjunctiva Clear HENT: Yes: Atraumatic Neck: Yes: Supple Cardiovascular: Yes: Regular Rate and Rhythm Respiratory: Yes: CTA Bilaterally Gastrointestinal: Yes: Soft. No: Tenderness Renal/: No: Hematuria Musculoskeletal: No: Joint Stiffness, Joint Swelling Extremities: No: Cold, Cool Edema: No Integumentary: No: Rash, Venous Stasis Changes Wound/Incision: Yes: Clean/Dry, Well Approximated Neurological: Yes: WNL, Alert, Oriented ...Motor Strength: WNL Psychiatric: Yes: WNL, Alert, Oriented. No: Agitated, Suicidal Ideation Labs: CBC, BMP 04/08/19 07:18 04/08/19 07:18 Discharge Summary Problems reviewed: Yes Reason For Visit: GASTROINTESTINAL HEMORRHAGE Current Active Problems Abdominal abscess (Acute) Abdominal mass (Acute) Atrial flutter (Acute) Dehydration (Acute) Gastroenteritis (Acute) Gastrointestinal hemorrhage (Acute) Hernia of abdominal wall (Acute) Metastatic melanoma (Acute) Nausea (Acute) Near syncope (Acute) Near syncope (Acute) Neoplasm of small intestine (Acute) Occult blood in stools (Acute) Perforated bowel (Acute) Procedures: Principal: 63 YOM h/o stage 4 melanoma also HTN ASHD AFib (not on AC ) COPD DM admitted with presyncope and abd pain found to have large abdominal mass; surgery lap exporatory - c/w metastatic melanoma Other Procedures: seen by ONC, GI< cardiology; will need further treatment per ONC Hospital Course: stable postop; will need further w/u and treatment for melanoma; Health Concerns: melanoma, AFIB Plan of Treatment: melanoma treatment per ONC Goals: feels better Condition: Stable - Instructions Diet, Activity, Other Instructions: Post Operative Instructions f/u PCP, cardiology, GI, ONC and surgery as advised further treatment for melanoma per ONC RTER if worse or recurrent c/o Physical activity Resume your normal everyday activity as tolerated no heavy lifting or exercise until seen by your surgeon. You may walk unlimited amounts of and climb stairs. You may resume driving the car when you feel safe and comfortable behind the wheel. Wound care Call and make an appointment to have your jeannie removed 1 week after discharge form hospital Diet There are no dietary restrictions. Eat healthy, high-fiber foods. Drink 6 to 8 glasses of liquid each day. This will assist in keeping your bowels are regular. Pain management You may take Tylenol or acetaminophen or Ibuprofen (for example, Motrin, Advil etc.) Any pain prescription medication ordered should be taken as prescribed for moderate to severe pain. Call Dr. Avalos for any of the following: Severe pain not relieved by medication Fever of 101 or higher Excessive bleeding or drainage on dressing Inability to urinate Call the office for a post operative appointment in 7 days. Referrals: Brayden Amos MD [Staff Physician] - Ayla Aranda MD [Staff Physician] - Raji Cadet MD [Staff Physician] - Dejon Collins MD [Staff Physician] - Rodrigo Avalos MD [Staff Physician] - Disposition: VNS/HOME HEALTH CARE - Home Medications Comprehensive Discharge Medication List: Ambulatory Orders Budesonide/Formoterol Fumarate [Symbicort 160-4.5 Mcg Inhaler] 1 ih IH BID 11/07 Metoprolol Succinate [Toprol XL -] 50 mg PO HS 12/09/15 metFORMIN HCL [Metformin ER Osmotic] 500 mg PO DAILY 12/09/15 Ascorbic Acid [Vitamin C -] 100 mg PO DAILY 04/09/16 Ferrous Sulfate [Feosol] 325 mg PO DAILY 04/09/16 Gabapentin [Neurontin] 600 mg PO TID 04/09/16 Metoprolol Succinate [Toprol XL -] 100 mg PO AM 04/09/16 Digoxin [Lanoxin -] 0.25 mg PO DAILY #30 tablet 04/12/16 Prednisone 5 mg PO AM 10/18/16 Repaglinide [Prandin -] 1 mg PO BID 10/18/16 predniSONE [Deltasone -] 2.5 mg PO HS 10/18/16 Levalbuterol Tartrate [Xopenex Hfa] 15 gm IH PRN PRN 02/15/18 Alprazolam [Xanax] 0.25 mg PO Q8H PRN 03/27/19 Rosuvastatin Calcium [Crestor] 5 mg PO DAILY 03/27/19
== END 2019-04-11 13:28 | disposition home health service (06) | DRG 329 ==
LOC: JER 06:48 → JERBED 11:16 → J4S 13:14
PROVIDERS: ADMIT Specialist; ATTEND Specialist
PROC: 0DCU0ZZ Extirpation of Matter from Omentum, Open Approach (ICD-10-PCS; 2019-04-03)
PROC: 0WQF0ZZ Repair Abdominal Wall, Open Approach (ICD-10-PCS; 2019-04-03)
PROC: 0DNW0ZZ Release Peritoneum, Open Approach (ICD-10-PCS; 2019-04-03)
PROC: 3E1M38Z Irrigation of Peritoneal Cavity using Irrigating Substance, Percutaneous Approach (ICD-10-PCS; 2019-04-03)
PROC: 0DB80ZZ Excision of Small Intestine, Open Approach (ICD-10-PCS; principal; 2019-04-03 08:00)
PROC: 30233N1 Transfusion of Nonautologous Red Blood Cells into Peripheral Vein, Percutaneous Approach (ICD-10-PCS; 2019-04-05)
DX: D49.0 Neoplasm of unspecified behavior of digestive system (principal); K63.1 Perforation of intestine (nontraumatic); I48.92 Unspecified atrial flutter; K92.2 Gastrointestinal hemorrhage, unspecified; E27.40 Unspecified adrenocortical insufficiency; C79.31 Secondary malignant neoplasm of brain; C79.02 Secondary malignant neoplasm of left kidney and renal pelvis; I48.19 Other persistent atrial fibrillation; K43.0 Incisional hernia with obstruction, without gangrene; E87.0 Hyperosmolality and hypernatremia; E86.0 Dehydration; I95.1 Orthostatic hypotension; J44.9 Chronic obstructive pulmonary disease, unspecified; E11.9 Type 2 diabetes mellitus without complications; R56.9 Unspecified convulsions; K57.90 Diverticulosis of intestine, part unspecified, without perforation or abscess without bleeding; I48.91 Unspecified atrial fibrillation; M54.5 Low back pain; R19.5 Other fecal abnormalities; D64.9 Anemia, unspecified; C43.9 Malignant melanoma of skin, unspecified; E78.5 Hyperlipidemia, unspecified; Z90.5 Acquired absence of kidney; R50.9 Fever, unspecified; D72.829 Elevated white blood cell count, unspecified; K52.9 Noninfective gastroenteritis and colitis, unspecified; K43.9 Ventral hernia without obstruction or gangrene; R11.0 Nausea; R51 Headache; E83.42 Hypomagnesemia; E83.39 Other disorders of phosphorus metabolism; R00.0 Tachycardia, unspecified; C22.9 Malignant neoplasm of liver, not specified as primary or secondary
CPT/HCPCS: 36415; 36430; 70450-TC; 71045-TC-FY; 71250-TC; 74176-TC; 80048; 80053; 80162; 81003; 82272; 82550; 82962; 83735; 84100; 84484; 85025; 85027; 85610; 85651; 85730; 86140; 86850; 86900; 86901; 86922; 87040; 87086; 88302-TC; 88304-TC; 88309-TC; 88341-TC; 93005; 93010; 94760; 97116-GP; 97161-GP; 99284-25; J0131; J7030; P9038; P9058

== ENCOUNTER 2019-09-03 05:25 | Day surgery (SDC) | payer OTHER, BC ==
[2019-09-03] MEDS ORDERED: SODIUM CHLORIDE 500 ML IV ONE (09:00)
[2019-09-03] MEDS ORDERED: DEXAMETHASONE SODIUM PHOSPHATE 10 MG in SODIUM CHLORIDE 50 ML IVPB ONE (09:00)
[2019-09-03 09:14] LABS: BASO % 0.8 % (0-2.0); EOS % 3.6 % (0-4.5); HEMATOCRIT 43.7 % (35.4-49); HEMOGLOBIN 14.7 GM/dL (11.7-16.9); LYMPH % 23.6 % (8-40); MCH 32.2 pg (25.7-33.7); MCHC 33.5 g/dl (32.0-35.9); MEAN PLT VOLUME 8.4 fl (7.5-11.1); MONO % 7.3 % (3.8-10.2); NEUT % 64.7 % (42.8-82.8); PLATELET COUNT 159 K/MM3 (134-434); RBC 4.55 M/mm3 (4.00-5.60); RDW 16.7 % (11.9-15.9)
[2019-09-03 09:54] LABS: ALBUMIN 3.6 g/dl (3.4-5.0); BILIRUBIN,TOTAL 0.6 mg/dL (0.2-1); BLOOD UREA NITROGEN 20.5 mg/dL (7-18); POTASSIUM 4.1 mmol/L (3.5-5.1); TOT PROT 6.9 g/dl (6.4-8.2)
--- NOTE | 2019-09-03 11:16 | CONSULT ---
Consultation: REQUESTING PROVIDER: Dr. Collins CONSULT REQUEST: We have been asked to medically evaluate this patient for airway observation after chemo administration. HISTORY OF PRESENT ILLNESS: The patient is a 63 y/o m w/ PMH HTN, DM, HLD, Afib, not on AC due to GI bleed and falls, stage 4 melanoma, s/p multiple prior surgeries including left kidney resection, s/p craniotomy 12/2017, thoracic vertebral surgery 01/2018 who comes in today for Keytruda infusion. In the past, the patient had an anaphylactic reaction to keytruda requiring IV steroids and close monitoring in ICU. Patient in ICU today for close airway monitoring s/p Keytruda infusion. REVIEW OF SYSTEMS: CONSTITUTIONAL: Absent: fever, chills, diaphoresis, generalized weakness, malaise, loss of appetite, weight change HEENT: Absent: rhinorrhea, nasal congestion, throat pain, throat swelling, difficulty swallowing, mouth swelling, ear pain, eye pain, visual changes CARDIOVASCULAR: Absent: chest pain, syncope, palpitations, irregular heart rate, lightheadedness , peripheral edema RESPIRATORY: Absent: cough, shortness of breath, dyspnea with exertion, orthopnea, wheezing, stridor, hemoptysis GASTROINTESTINAL: Absent: abdominal pain, abdominal distension, nausea, vomiting, diarrhea, constipation, melena, hematochezia GENITOURINARY: Absent: dysuria, frequency, urgency, hesitancy, hematuria, flank pain, genital pain MUSCULOSKELETAL: Absent: myalgia, arthralgia, joint swelling, back pain, neck pain SKIN: Absent: rash, itching, pallor HEMATOLOGIC/IMMUNOLOGIC: Absent: easy bleeding, easy bruising, lymphadenopathy, frequent infections ENDOCRINE: Absent: unexplained weight gain, unexplained weight loss, heat intolerance, cold intolerance NEUROLOGIC: Absent: headache, focal weakness or paresthesias, dizziness, unsteady gait, seizure, mental status changes, bladder or bowel incontinence PSYCHIATRIC: Absent: anxiety, depression, suicidal or homicidal ideation, hallucinations. PHYSICAL EXAMINATION Vital Signs - 24 hr 09/03/19 10:00 Temperature 97.4 F L Pulse Rate 57 L Respiratory 12 Rate Blood Pressure 121/71 GENERAL: Awake, alert, and fully oriented, in no acute distress. HEAD: Normal with no signs of trauma. NECK: Normal range of motion, supple without lymphadenopathy, JVD, or masses. LUNGS: Breath sounds equal, clear to auscultation bilaterally. Scant expiratory wheezes noted throughout. HEART: Regular rate and rhythm, normal S1 and S2 without murmur, rub or gallop. ABDOMEN: Soft, nontender, not distended, normoactive bowel sounds, no guarding, no rebound, no masses. No hepatomegaly or splenomegaly. LOWER EXTREMITIES: 2+ pulses, warm, well-perfused. No calf tenderness. No peripheral edema. NEUROLOGICAL: Cranial nerves II-X intact. Normal speech. Laboratory Results - last 24 hr 09/03/19 09/03/19 08:40 08:40 WBC 6.0 RBC 4.55 Hgb 14.7 Hct 43.7 D MCV 96.0 MCH 32.2 D MCHC 33.5 RDW 16.7 H Plt Count 159 D MPV 8.4 Absolute Neuts (auto) 3.9 Neutrophils % 64.7 Lymphocytes % 23.6 D Monocytes % 7.3 Eosinophils % 3.6 Basophils % 0.8 Nucleated RBC % 0 Sodium 139 Potassium 4.1 Chloride 103 Carbon Dioxide 27 Anion Gap 9 BUN 20.5 H Creatinine 1.0 Est GFR (CKD-EPI)AfAm 91.78 Est GFR (CKD-EPI)NonAf 79.19 Random Glucose 221 H Calcium 9.0 Magnesium 2.0 Total Bilirubin 0.6 AST 29 ALT 35 Alkaline Phosphatase 119 H Total Protein 6.9 Albumin 3.6 TSH 1.36 D Free T4 0.93 Active Medications Generic Name Dose Route Start Last Admin Trade Name Freq PRN Reason Stop Dose Admin Acetaminophen 1,000 mg 09/03/19 13:00 Tylenol - PO 09/03/19 13:01 ONCE ONE Sodium Chloride 500 mls @ 125 mls/hr 09/03/19 09:00 Normal Saline - IV 09/03/19 12:59 ONCE ONE Dexamethasone 20 mg/ 103 mls @ 206 mls/hr 09/03/19 13:00 Diphenhydramine HCl 50 mg/ IVPB 09/03/19 13:29 Sodium Chloride ONCE ONE Pembrolizumab 200 mg/ Sodium 108 mls @ 54 mls/hr 09/03/19 13:30 Chloride IV 09/03/19 15:29 ONCE ONE Sodium Chloride 1,000 mls @ 75 mls/hr 09/03/19 13:00 Normal Saline - IV 09/03/19 23:00 ASDIR SEBASTIÁN Insulin Aspart 1 vial 09/03/19 11:00 Novolog Vial Sliding Scale - SQ ACHS [facility] Protocol ASSESSMENT/PLAN: The patient is a 63 y/o m w/ PMH HTN, DM, HLD, Afib, not on AC due to GI bleed and falls, stage 4 melanoma, s/p multiple prior surgeries including left kidney resection, s/p craniotomy 12/2017, thoracic vertebral surgery 01/2018 who comes in today for Keytruda infusion. Patient in ICU today for close airway monitoring. #Neuro -intact at this time #Heme -for keytruda infusion today -Will pre-medicate with dexamethasone and Benadryl prior to infusion #Pulmonary -scant wheezes on exam prior to chemo infusion -Duonebs standing -albuterol PRN -monitor airway closely during and after infusion -low threshold for intubation if patient begins to exhibit respiratory distress during infusion #dispo -observe airway in ICU overnight Visit type - Emergency Visit Emergency Visit: Yes Care time: The patient presented to the Emergency Department on the above date and was hospitalized for further evaluation of their emergent condition. - New Patient This patient is new to me today: Yes Date on this admission: 09/03/19 - Critical Care Critical Care patient: Yes Total Critical Care Time (in minutes): 40 Critical Care Statement: The care of this patient involved high complexity decision making to prevent further life threatening deterioration of the patient 's condition and/or to evaluate & treat vital organ system(s) failure or risk of failure. ATTENDING PHYSICIAN STATEMENT I saw and evaluated the patient. I reviewed the resident's note and discussed the case with the resident. I agree with the resident's findings and plan as documented. SUBJECTIVE: OBJECTIVE: ASSESSMENT AND PLAN:
[2019-09-03 11:24] LABS: ANISOCYTOSIS 1+; MACROCYTOSIS 0
[2019-09-03 11:44] LABS: PLATELET ESTIMATE ADEQUATE
[2019-09-03] MEDS: INSULIN SLIDING SCALE (NOVOLOG) 1 VIAL SQ SCH ×3 (12:47→22:46)
[2019-09-03] MEDS ORDERED: SODIUM CHLORIDE 1,000 ML IV SCH (13:00)
[2019-09-03] MEDS ORDERED: DEXAMETHASONE SODIUM PHOSPHATE 20 MG, DIPHENHYDRAMINE 50 MG in SODIUM CHLORIDE 100 ML IVPB ONE (13:00)
[2019-09-03] MEDS ORDERED: ACETAMINOPHEN 500 MG TABLET (FP) PO ONE (13:00)
[2019-09-03] MEDS ORDERED: PEMBROLIZUMAB 200 MG in SODIUM CHLORIDE 100 ML IV ONE (13:30)
--- NOTE | 2019-09-03 14:22 | PN ---
Teaching Attending Note Name of Resident: Tristin Fam ATTENDING PHYSICIAN STATEMENT I saw and evaluated the patient. I reviewed the resident's note and discussed the case with the resident. I agree with the resident's findings and plan as documented. SUBJECTIVE: 63 M, Stage 4 Melanoma, COPD, HTN, DM, HLD, Afib not on AC (due to GI bleed and falls), left kidney resection, s/p craniotomy 12/2017, thoracic vertebral surgery 01/2018. Previously had severe anaphylaxis due to Keytruda infusion. Transferred to ICU for pre-medication and close airway monitoring as he requires Keytruda infusion. Intake & Output 08/31/19 09/01/19 09/02/19 09/03/19 23:59 23:59 23:59 23:59 Weight 167 lb 1.766 oz Last Vital Signs Temp Pulse Resp BP Pulse Ox 97.4 F L 56 L 13 111/60 96 09/03/19 10:00 09/03/19 12:00 09/03/19 12:00 09/03/19 12:00 09/03/19 11:15 Active Medications Pembrolizumab 200 mg/ Sodium (Chloride) 108 mls @ 54 mls/hr IV ONCE ONE Stop: 09/03/19 15:29 Sodium Chloride (Normal Saline -) 1,000 mls @ 75 mls/hr IV ASDIR SEBASTIÁN Stop: 09/03/19 23:00 Insulin Aspart (Novolog Vial Sliding Scale -) 1 vial SQ ACHS [facility]; Protocol Last Admin: 09/03/19 12:47 Dose: 3 units PHYSICAL EXAMINATION GENERAL: Awake, alert, and fully oriented, in no acute distress. HEAD: Normal with no signs of trauma. NECK: Normal range of motion, supple without lymphadenopathy, JVD, or masses. LUNGS: Breath sounds equal, clear to auscultation bilaterally. Scattered expiratory wheeze. HEART: Regular rate and rhythm, normal S1 and S2 without murmur, rub or gallop. ABDOMEN: Soft, nontender, not distended, normoactive bowel sounds, no guarding, no rebound, no masses. No hepatomegaly or splenomegaly. LOWER EXTREMITIES: 2+ pulses, warm, well-perfused. No calf tenderness. No peripheral edema. NEUROLOGICAL: Non-focal Laboratory Results - last 24 hr 09/03/19 09/03/19 08:40 08:40 WBC 6.0 RBC 4.55 Hgb 14.7 Hct 43.7 D MCV 96.0 MCH 32.2 D MCHC 33.5 RDW 16.7 H Plt Count 159 D MPV 8.4 Absolute Neuts (auto) 3.9 Neutrophils % 64.7 Lymphocytes % 23.6 D Monocytes % 7.3 Eosinophils % 3.6 Basophils % 0.8 Nucleated RBC % 0 Sodium 139 Potassium 4.1 Chloride 103 Carbon Dioxide 27 Anion Gap 9 BUN 20.5 H Creatinine 1.0 Est GFR (CKD-EPI)AfAm 91.78 Est GFR (CKD-EPI)NonAf 79.19 Random Glucose 221 H Calcium 9.0 Magnesium 2.0 Total Bilirubin 0.6 AST 29 ALT 35 Alkaline Phosphatase 119 H Total Protein 6.9 Albumin 3.6 TSH 1.36 D Free T4 0.93 Active Medications Generic Name Dose Route Start Last Admin Trade Name Freq PRN Reason Stop Dose Admin Acetaminophen 1,000 mg 09/03/19 13:00 Tylenol - PO 09/03/19 13:01 ONCE ONE Sodium Chloride 500 mls @ 125 mls/hr 09/03/19 09:00 Normal Saline - IV 09/03/19 12:59 ONCE ONE Dexamethasone 20 mg/ 103 mls @ 206 mls/hr 09/03/19 13:00 Diphenhydramine HCl 50 mg/ IVPB 09/03/19 13:29 Sodium Chloride ONCE ONE Pembrolizumab 200 mg/ Sodium 108 mls @ 54 mls/hr 09/03/19 13:30 Chloride IV 09/03/19 15:29 ONCE ONE Sodium Chloride 1,000 mls @ 75 mls/hr 09/03/19 13:00 Normal Saline - IV 09/03/19 23:00 ASDIR [facility] Insulin Aspart 1 vial 09/03/19 11:00 Novolog Vial Sliding Scale - SQ ACHS [facility] Protocol ASSESSMENT/PLAN: Stage 4 Melanoma: for Keytruda infusion COPD HTN DM HLD Afib not on AC (due to GI bleed and falls) Left kidney resection S/P craniotomy 12/2017 (brain mets) Thoracic vertebral surgery 01/2018. Pre-medication with high dose Decadron and Benadryl Supplemental O2 as needed BD TX standing and PRN VTE prophylaxis Keytruda infusion per Oncology ICU monitoring for airway and anaphylaxis Dr Holder
[2019-09-03] MEDS ORDERED: ALBUTEROL SO4 2.5/IPRATROPIUM 0.5 INH SOL 3 ML VIAL.NEB. NEB PRN (14:26)
[2019-09-03] MEDS ORDERED: ALBUTEROL SO4 0.083% IH SOL 2.5 MG/3 ML VIAL.NEB. NEB PRN (14:27)
--- NOTE | 2019-09-03 17:19 | PN ---
Progress Note (short form) - Note Progress Note: Patient seen in clinic Metastatic melanoma for pembrolizumab. Prior treatment associated with angioedema occuring 7+ days post treatment. Past history of melanoma of chin, adjuvant interferon, nephrectomy, partial femur resection, immunotherapy with nivolumab and pembrolizumavb, s/p craniotomy and RT for OUTSIDE SALES EXECUTIVE mets, S/p OUTSIDE SALES EXECUTIVE infection./ S/P RT to femur. S/P melanoma with resection of small bowel PMH - HBP, HPL, DM, Asthma, COPD, psychosis with steroids, PAF, GI bleeding Last Vital Signs Temp Pulse Resp BP Pulse Ox 97.6 F 66 18 131/68 96 09/03/19 15:42 09/03/19 15:42 09/03/19 15:42 09/03/19 15:42 09/03/19 11:15 HEENT: KARENA, EOM Intact Oropharynx: No thrush, No mucositis Cor: RSR, No murmurs, No gallops Lungs: scattered rhonchi Abd: Soft, Normal bowel sounds, No organomegaly Ext:No significant edema Skin: No rashes, Integument intact CBC, BMP 09/03/19 08:40 09/03/19 08:40 Current Medications Generic Name Dose Route Start Last Admin Trade Name Freq PRN Reason Stop Dose Admin Albuterol Sulfate 1 amp 09/03/19 14:27 Ventolin 0.083% Nebulizer Soln - NEB Q4H PRN SHORT OF BREATH/WHEEZING Albuterol/Ipratropium 1 amp 09/03/19 14:26 Duoneb - NEB Q6H PRN SHORTNESS OF BREATH Sodium Chloride 1,000 mls @ 75 mls/hr 09/03/19 13:00 09/03/19 14:52 Normal Saline - IV 09/03/19 23:00 75 mls/hr ASDIR SEBASTIÁN Administration Insulin Aspart 1 vial 09/03/19 11:00 09/03/19 16:39 Novolog Vial Sliding Scale - SQ 5 units ACHS SEBASTIÁN Administration Protocol Impression: Metastatic melanoma to mesentery and retroperitneum Pembrolizumab S/P Grade IV adverse response to pembrolizumab in past For ICU monitoring. Can be discharged in AM if stable
[2019-09-03] MEDS ORDERED: LEVALBUTEROL HCL 0.31 MG/3 ML VIAL.NEB IH PRN (17:45)
[2019-09-03] MEDS: BUDESONIDE/FORMETEROL FUMARATE 160/4.5 mcg INHALER IH SCH (22:46)
[2019-09-04] MEDS: INSULIN SLIDING SCALE (NOVOLOG) 1 VIAL SQ SCH (07:47)
[2019-09-04] MEDS ORDERED: predniSONE 20 MG TABLET (UD) PO SCH (08:00)
[2019-09-04 08:36] LABS: HEMATOCRIT 41.7 % (35.4-49); HEMOGLOBIN 13.9 GM/dL (11.7-16.9); MCH 32.2 pg (25.7-33.7); MCHC 33.4 g/dl (32.0-35.9); MEAN CELL VOLUME 96.4 fl (80-96); MEAN PLT VOLUME 8.8 fl (7.5-11.1); PLATELET COUNT 189 K/MM3 (134-434); RBC 4.33 M/mm3 (4.00-5.60); RDW 16.1 % (11.9-15.9); WHITE BLOOD COUNT 9.4 K/mm3 (4.0-10.0)
[2019-09-04] MEDS: BUDESONIDE/FORMETEROL FUMARATE 160/4.5 mcg INHALER IH SCH (09:40)
[2019-09-04] MEDS ORDERED: DIGOXIN 0.125 MG TABLET (FP) PO SCH (10:00)
--- NOTE | 2019-09-04 11:40 | PN ---
Teaching Attending Note Name of Resident: Martin Montenegro ATTENDING PHYSICIAN STATEMENT I saw and evaluated the patient. I reviewed the resident's note and discussed the case with the resident. I agree with the resident's findings and plan as documented. SUBJECTIVE: Pt seen and examined in the ICU. Feels at baseline. No reaction noted from Keytruda. No shortness of breath, mouth swelling, dysphagia. OBJECTIVE: Vital Signs Period Temp Pulse Resp BP Sys/Betancourt Pulse Ox Last 24 Hr 97.6 F-97.9 F 56-88 12-21 111-144/54-71 97-99 Intake & Output 09/01/19 09/02/19 09/03/19 09/04/19 23:59 23:59 23:59 23:59 Intake Total 300 450 Output Total 500 325 Balance -200 125 Weight 75.8 kg Gen: NAD at rest Heart: RRR Lung: scattered wheezes Abd: soft, nontender Ext: no edema CBC, BMP 09/04/19 06:45 09/03/19 08:40 Active Medications Albuterol Sulfate (Ventolin 0.083% Nebulizer Soln -) 1 amp NEB Q4H PRN PRN Reason: SHORT OF BREATH/WHEEZING Albuterol/Ipratropium (Duoneb -) 1 amp NEB Q6H PRN PRN Reason: SHORTNESS OF BREATH Budesonide/Formoterol Fumarate (Symbicort 160/4.5mcg -) 1 puff IH BID [facility] Last Admin: 09/04/19 09:40 Dose: 1 puff Digoxin (Lanoxin -) 0.25 mg PO DAILY [facility] Last Admin: 09/04/19 09:38 Dose: 0.25 mg Insulin Aspart (Novolog Vial Sliding Scale -) 1 vial SQ ACHS [facility]; Protocol Last Admin: 09/04/19 07:47 Dose: 5 units Levalbuterol HCl (Xopenex) 0.31 mg IH Q8H PRN PRN Reason: ASTHMA Last Admin: 09/03/19 19:00 Dose: 0.31 mg Metoprolol Succinate (Toprol Xl -) 100 mg PO AM [facility] Last Admin: 09/04/19 09:33 Dose: 100 mg Prednisone (Deltasone -) 60 mg PO DAILY@0800 [facility] Last Admin: 09/04/19 09:33 Dose: 60 mg ASSESSMENT AND PLAN: Stage 4 Melanoma s/p Keytruda Infusion COPD HTN DM Hyperlipidemia Atrial Fibrillation h/o Left Nephrectomy s/p Craniotomy 12/2017 (brain mets) Thoracic vertebral surgery 01/2018. - inhaled bronchodilators as needed - O2 to keep Spo2 >90% - PO as tolerated - DVT prophylaxis - can d/c home or monitor on floor
[2019-09-04 14:12] VITALS: BP 126/58; PULSE 85
[2019-09-04 16:09] VITALS: TEMP 98
== END 2019-09-04 16:34 | disposition home or self-care (01) ==
LOC: JONCCHEMO 05:25 → JICU 10:00 → JONCCHEMO 09-04 16:00
PROVIDERS: ATTEND Internal Medicine Hematology & Oncology
DX: Z51.11 Encounter for antineoplastic chemotherapy (principal); C43.9 Malignant melanoma of skin, unspecified; C78.6 Secondary malignant neoplasm of retroperitoneum and peritoneum; Z88.8 Allergy status to other drugs, medicaments and biological substances; E11.9 Type 2 diabetes mellitus without complications; Z79.4 Long term (current) use of insulin; I10 Essential (primary) hypertension; J45.909 Unspecified asthma, uncomplicated
CPT/HCPCS: 36415; 80053; 82962; 83735; 84439; 84443; 85025; 85027; 96361; 96367; 96413; 96415; J7030; J9271

== ENCOUNTER 2020-01-23 07:15 | Day surgery (SDC) | payer OTHER, BC ==
--- NOTE | 2020-01-23 14:46 | CONSULT ---
Consultation: REQUESTING PROVIDER: Dr. Collins CONSULT REQUEST: We have been asked to medically evaluate and monitor this patient for post-infusion reaction given history of angioedema. HISTORY OF PRESENT ILLNESS: Pt is a 64 y/o male with metastatic melanoma (~15 years, last Keytruda infusion 08/2019), NIDDM2, COPD, HTN, HLD, afib (not on AC, hx of GI bleed and falls), anxiety, and craniotomies x3 with craniectomy who presents for infusion of Keytruda. Pt has been on this therapy for over 3 years with an infusion-related angioedema that occurred 2 months following a transfusion 3 years ago. He has been pre-medicated with dexamethasone and Benadryl in the pasta with good results. He will be observed for slow infusion of Keytruda. Today pt reports some anxiety that is improved with Xanax. He denies fever, chills, n/v/d, loss of appetite. REVIEW OF SYSTEMS: see HPI PHYSICAL EXAMINATION GENERAL: Awake, alert, and fully oriented, in no acute distress. HEAD: Normocephalic. Malar rash with telangictasias. EYES: Pupils equal, round and reactive to light, extraocular movements intact, conjunctiva clear. EARS, NOSE, THROAT: Ears normal, nares patent, moist mucous membranes. NECK: Normal range of motion. LUNGS: Clear to auscultation bilaterally. No wheezes, and no crackles. HEART: Regular rate and rhythm, no murmur. ABDOMEN: Soft, nontender, not distended, normoactive bowel sounds. MUSCULOSKELETAL: Normal range of motion at all joints. UPPER EXTREMITIES: Warm, well-perfused. No peripheral edema. LOWER EXTREMITIES: Warm, well-perfused. No peripheral edema. NEUROLOGICAL: Cranial nerves II-XII grossly intact. Normal speech. PSYCHIATRIC: Cooperative. Good eye contact. Appropriate mood and affect. SKIN: Warm, dry, normal turgor. ASSESSMENT/PLAN: Pt is a 64 y/o male with metastatic melanoma (~15 years, last Keytruda infusion 08/2019), NIDDM2, COPD, HTN, HLD, afib (not on AC, hx of GI bleed and falls), anxiety, and craniotomies x3 with craniectomy who presents for infusion of Keytruda. He has history of angioedema following infusion several years ago. He is being observed in ICU for infusion-related allergic reactions. #neuro/psych -A&Ox3 -monitor for mental status changes -Xanax PRN anxiety #cardio -hemodynamically stable -monitor for hypotension #pulm -continue home inhalers -monitor for throat swelling, difficulty breathing #heme/onc -Keytruda infused over 2 hours -CBC unremarkable -CT head -neurosurgery consult (Dr. Simmons) #allergy/immunology -hx angioedema -monitor for rashes, angioedema, anaphylaxis -Benadryl and Decadron administered prior to infusion #endo -BGM 300/400s today -endorsed eating sugary foods yesterday -Q2H BGMs and SSI DVT Ppx low risk/has hx GI bleed -TEDs FEN PO fluids monitor labs regular diet dispo: ICU We will continue to follow the patient. Thank you for this consultative opportunity. FULL CODE Visit type - Emergency Visit Emergency Visit: No - New Patient This patient is new to me today: Yes Date on this admission: 01/23/20 - Critical Care Critical Care patient: Yes Total Critical Care Time (in minutes): 36 Critical Care Statement: The care of this patient involved high complexity decision making to prevent further life threatening deterioration of the patient's condition and/or to evaluate & treat vital organ system(s) failure or risk of failure. ATTENDING PHYSICIAN STATEMENT I saw and evaluated the patient. I reviewed the resident's note and discussed the case with the resident. I agree with the resident's findings and plan as documented. SUBJECTIVE: OBJECTIVE: ASSESSMENT AND PLAN:
[2020-01-23] MEDS ORDERED: ACETAMINOPHEN 500 MG TABLET (FP) PO ONE (15:00)
[2020-01-23] MEDS ORDERED: DEXAMETHASONE SOD PHOSPHATE 10 MG/1 ML VIAL IVPB ONE (15:00)
[2020-01-23 15:03] LABS: ALBUMIN 3.2 g/dl (3.4-5.0); BILIRUBIN,DIRECT 0.2 mg/dL (0.0-0.2); BILIRUBIN,TOTAL 0.4 mg/dL (0.2-1); BLOOD UREA NITROGEN 23.4 mg/dL (7-18); CALCIUM 9.5 mg/dL (8.5-10.1); CREATININE 0.9 mg/dL (0.55-1.3); MAGNESIUM 1.9 mg/dL (1.8-2.4); POTASSIUM 4.1 mmol/L (3.5-5.1); TOT PROT 6.5 g/dl (6.4-8.2)
[2020-01-23 15:07] LABS: BASO % 0.7 % (0-2.0); EOS % 1.2 % (0-4.5); HEMATOCRIT 41.5 % (35.4-49); HEMOGLOBIN 13.9 GM/dL (11.7-16.9); LYMPH % 9.3 % (8-40); MCH 33.2 pg (25.7-33.7); MCHC 33.5 g/dl (32.0-35.9); MEAN CELL VOLUME 99.1 fl (80-96); MEAN PLT VOLUME 8.2 fl (7.5-11.1); MONO % 4.3 % (3.8-10.2); NEUT % 84.5 % (42.8-82.8); PLATELET COUNT 261 K/MM3 (134-434); RBC 4.19 M/mm3 (4.00-5.60); RDW 14.2 % (11.9-15.9); WHITE BLOOD COUNT 8.3 K/mm3 (4.0-10.0)
[2020-01-23] MEDS: INSULIN SLIDING SCALE (NOVOLOG) 1 VIAL SQ SCH ×4 (15:58→21:53)
[2020-01-23] MEDS ORDERED: PEMBROLIZUMAB 200 MG in SODIUM CHLORIDE 100 ML IV ONE (16:00)
[2020-01-23] MEDS ORDERED: DEXAMETHASONE INJECTION 20 MG, DIPHENHYDRAMINE 50 MG in SODIUM CHLORIDE 100 ML IVPB ONE (16:00)
--- NOTE | 2020-01-23 18:35 | CON.HO ---
Consult Consult Specialty:: Oncology Referred by:: ICU - History of Present Illness Chief Complaint: Chemotherapy with pembrolizumab. History of Present Illness: 64 yo M with stage IV melanoma. Intially dx'd in 2005 with local disease to chin. s/p resection. H/o adjuvant interferon tx. Subsequent metastatic disease to L. kidney, s/p L. nephrectomy. H/o brain mets in 2011, s/p R. frontal lobe tumor resection, and RTX. Resected L. femur met in 2014, and L. knee in 2014. Disease to spine and abd in 2015, tx'd with pembrolizumab and ipilimumab. 2018 resected abd mass with small bowel. H/o nivolumab maintenance tx. 2016 had received 3 cycles of pembrolizumab with complete response, however developed angioedema. 08/2019 re-challenged with pembrolizumab in ICU setting, no adverse reactions. Subsequent tx's delayed due to covid-19. Now admitted to ICU for next cycle of pembrolizumab under monitored setting. Has been feeliong fatigued. No ROBERTS, cp, sob, or n/v/d. 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) Cardio/Vascular: Yes: AFIB (not on AC), HTN Pulmonary: Yes: Asthma, COPD Gastrointestinal: Yes: Diverticulosis, Other (multiple hyperpigmented colonic lesions and diverticulosis on 12/23 colonoscopy biut biopsies did not confirm melanoma) Renal/: Yes: Other (L Nephrectomy) Musculoskeletal: Yes: Chronic low back pain Endocrine: Yes: Diabetes Mellitus, Other (Adrenal Insufficiency) Dermatology: Yes: Melanoma (diffuse and s/p multiple therapies) - Past Surgical History Past Surgical History: Yes: Cholecystectomy, Nephrectomy (Left) - Alcohol/Substance Use Hx Alcohol Use: No - Smoking History Smoking history: Unknown if ever smoked Have you smoked in the past 12 months: No Aproximately how many cigarettes per day: 0 If you are a former smoker, when did you quit?: 18 years ago - Social History Usual Living Arrangement: With Spouse ADL: Independent 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 History of Recent Travel: No Home Medications - Allergies Allergies/Adverse Reactions: Allergies Allergy/AdvReac Type Severity Reaction Status Date / Time codeine [Codeine] AdvReac Severe abd pain Verified 03/27/19 06:56 morphine AdvReac Severe Verified 03/27/19 06:56 - Home Medications Home Medications: Ambulatory Orders Budesonide/Formoterol Fumarate [Symbicort 160-4.5 Mcg Inhaler] 1 ih IH BID 11/08/11 Metoprolol Succinate [Toprol XL -] 50 mg PO HS 12/09/15 metFORMIN HCL [Metformin ER Osmotic] 500 mg PO DAILY 12/09/15 Ascorbic Acid [Vitamin C -] 100 mg PO DAILY 04/09/16 Ferrous Sulfate [Feosol] 325 mg PO DAILY 04/09/16 Gabapentin [Neurontin] 600 mg PO TID 04/09/16 Metoprolol Succinate [Toprol XL -] 100 mg PO AM 04/09/16 Digoxin [Lanoxin -] 0.25 mg PO DAILY #30 tablet 04/12/16 Prednisone 5 mg PO AM 10/18/16 Repaglinide [Prandin -] 4 mg PO BID 10/18/16 Levalbuterol Tartrate [Xopenex Hfa] 15 gm IH PRN PRN 02/15/18 Alprazolam [Xanax] 0.25 mg PO Q8H PRN 03/27/19 Rosuvastatin Calcium [Crestor] 5 mg PO DAILY 03/27/19 Acetaminophen [Tylenol .Regular Strength -] 650 mg PO Q6H PRN tablet 04/11/19 Levalbuterol Tartrate [Xopenex Hfa] 15 gm IH PRN 09/03/19 Omeprazole 20 mg PO DAILY 09/03/19 Insulin (Novolog) [Novolog -] 0 units SQ AC #2 vial 09/04/19 Review of Systems Findings/Remarks: Fatigue Physical Exam Vital Signs: Vital Signs Temperature 97.7 F 01/23/20 17:58 Pulse Rate 50 L 01/23/20 18:00 Respiratory Rate 18 01/23/20 18:00 Blood Pressure 141/69 01/23/20 18:00 O2 Sat by Pulse Oximetry (%) 97 01/23/20 18:00 Constitutional: Yes: No Distress Eyes: Yes: WNL HENT: Yes: WNL Neck: Yes: Supple Cardiovascular: Yes: Regular Rate and Rhythm Respiratory: Yes: CTA Bilaterally Gastrointestinal: Yes: Normal Bowel Sounds, Soft Extremities: Yes: WNL Edema: No Integumentary: Yes: WNL Psychiatric: Yes: Alert, Oriented Labs: CBC, BMP 01/23/20 13:30 01/23/20 13:30 Assessment/Plan 64 yo M with metastatic melanoma. h/o disease to bone, brain, and abd. S/p multiple surgeries, interferon, and immunotherapy. Prior delayed reaction, angioedema, to pembrolizumab. None when re-challenged in 08/2019. Admitted to ICU for next cycle of pembrolizumab in monitored setting. Relatively asymptomatic. -pembrolizumab over 2 hours as scheduled. -c/w ICU monitoring x 24 hours. -am labs: cbc, chem, lfts, LDH, TFTs. mg, phos. -c/w other meds. -d/w Dr. Collins, and Nursing.
[2020-01-23] MEDS: MUPIROCIN 2% TOPICAL OINTMENT FOR DECOLONIZATION NS SCH (21:02)
[2020-01-23] MEDS ORDERED: CHLORHEXIDINE GLUCONATE 4% CLEANSER FOR DECOLONIZATION TP SCH (22:00)
[2020-01-24] MEDS: INSULIN SLIDING SCALE (NOVOLOG) 1 VIAL SQ SCH ×8 (00:15→13:50)
[2020-01-24 07:01] LABS: BASO % 0.1 % (0-2.0); HEMATOCRIT 41.5 % (35.4-49); HEMOGLOBIN 13.9 GM/dL (11.7-16.9); MCH 32.2 pg (25.7-33.7); MCHC 33.4 g/dl (32.0-35.9); MEAN CELL VOLUME 96.4 fl (80-96); MEAN PLT VOLUME 7.6 fl (7.5-11.1); MONO % 0.6 % (3.8-10.2); NEUT % 91.3 % (42.8-82.8); PLATELET COUNT 257 K/MM3 (134-434); RBC 4.31 M/mm3 (4.00-5.60); RDW 14.1 % (11.9-15.9); WHITE BLOOD COUNT 7.1 K/mm3 (4.0-10.0)
[2020-01-24 07:43] LABS: ALBUMIN 2.9 g/dl (3.4-5.0); BILIRUBIN,TOTAL 0.5 mg/dL (0.2-1); BLOOD UREA NITROGEN 22.3 mg/dL (7-18); CALCIUM 8.8 mg/dL (8.5-10.1); CREATININE 0.8 mg/dL (0.55-1.3); POTASSIUM 3.6 mmol/L (3.5-5.1)
--- NOTE | 2020-01-24 09:10 | PN ---
Progress Note (short form) - Note Progress Note: NEUROSURGERY CONSULT DICTATED Pt well known to me H/o metastatic melanoma, NIDDM II, COPD, HTN, HLD, afib, anxiety, craniotomy earlier 2019 followed by gamma knife stereotactic radiosurgery to tumor bed presents for infusion of Keytruda. H/o infusion-related angioedema. He denies fever, chills, cough, n/v/d, loss of appetite. R costal pain better. No H/A, weakness, visual changes PE; AF, VSS General- healed R frontal incision CN- intact; Motor- 5/5 without drift; Sensation- intact LT; DTR- 1+ WBC 7.1, Hgb 13.9; Cr 0.8, albumin 2.9 Brain MRI (01/02)- R frontal encephalomalacia with ex-vacuo dilatation of lateral ventricle; craniotomy site noted; mild dural nodular enhancement with no significant associated edema Metastatic melanoma to R frontal lobe s/p surgical resection followed by gamma knife boost Small enhancing lesion could be post-surgical/post RT No further neurosurgical tx for this small lesion recommended at this time Follow-up brain MRI in 2-3 months (or 3 months after prior MRI, around mid to late March 2020) to assess stability of MRI lesion Cont chemo regimen per med onc Pt will report new or unusual symptoms
[2020-01-24] MEDS ORDERED: BUDESONIDE/FORMETEROL FUMARATE 160/4.5 mcg INHALER IH SCH (10:00)
[2020-01-24] MEDS ORDERED: PT OWN MED DRAWER 7, Y5N ONE (10:04)
[2020-01-24 11:11] LABS: ANISOCYTOSIS 1+; MACROCYTOSIS 1+; PLATELET ESTIMATE NORMAL
[2020-01-24] MEDS: MUPIROCIN 2% TOPICAL OINTMENT FOR DECOLONIZATION NS SCH (12:01)
--- NOTE | 2020-01-24 13:42 | PN ---
Teaching Attending Note Name of Resident: Mary Grace Arthur ATTENDING PHYSICIAN STATEMENT I saw and evaluated the patient. I reviewed the resident's note and discussed the case with the resident. I agree with the resident's findings and plan as documented. SUBJECTIVE: Patient seen and examined in the ICU. Awake and alert. Feels overall well. No CP or SOB. Intake & Output 01/21/20 01/22/20 01/23/20 01/24/20 23:59 23:59 23:59 23:59 Intake Total 358 Output Total 400 450 Balance -42 -450 Weight 165 lb 172 lb 2.896 oz Last Vital Signs Temp Pulse Resp BP Pulse Ox 98.3 F 82 20 123/65 94 L 01/24/20 10:00 01/24/20 12:00 01/24/20 12:00 01/24/20 12:00 01/24/20 12:00 Active Medications Budesonide/Formoterol Fumarate (Symbicort 160/4.5mcg -) 1 puff IH BID [facility] Last Admin: 01/24/20 12:00 Dose: 1 puff Documented by: Chlorhexidine Gluconate (Hibiclens For Decolonization -) 1 applic TP HS [facility]BA[facility] Last Admin: 01/23/20 21:02 Dose: 1 applic Documented by: Insulin Aspart (Novolog Vial Sliding Scale -) 1 vial SQ Q2H [facility]; Protocol Last Admin: 01/24/20 11:56 Dose: 3 units Documented by: Mupirocin (Bactroban Ointment (For Decolonization) -) 1 applic NS BID [facility] Stop: 01/28/20 21:59 Last Admin: 01/24/20 12:01 Dose: 1 applic Documented by: GENERAL: Awake, alert, and fully oriented, in no acute distress. HEAD: Normocephalic. Malar rash with telangictasias. EYES: Pupils equal, round and reactive to light, extraocular movements intact, conjunctiva clear. EARS, NOSE, THROAT: Ears normal, nares patent, moist mucous membranes. NECK: Normal range of motion. LUNGS: Clear to auscultation bilaterally. No wheezes, and no crackles. HEART: Regular rate and rhythm, no murmur. ABDOMEN: Soft, nontender, not distended, normoactive bowel sounds. MUSCULOSKELETAL: Normal range of motion at all joints. UPPER EXTREMITIES: Warm, well-perfused. No peripheral edema. LOWER EXTREMITIES: Warm, well-perfused. No peripheral edema. NEUROLOGICAL: Non-focal. PSYCHIATRIC: Cooperative. Good eye contact. Appropriate mood and affect. SKIN: Warm, dry, normal turgor. Laboratory Results - last 24 hr 01/23/20 01/23/20 01/23/20 13:30 13:30 15:54 WBC 8.3 RBC 4.19 Hgb 13.9 Hct 41.5 MCV 99.1 H MCH 33.2 MCHC 33.5 RDW 14.2 Plt Count 261 D MPV 8.2 Absolute Neuts (auto) 7.0 Neutrophils % 84.5 H Neutrophils % (Manual) Band Neutrophils % Lymphocytes % 9.3 D Lymphocytes % (Manual) Monocytes % 4.3 Monocytes % (Manual) Eosinophils % 1.2 Eosinophils % (Manual) Basophils % 0.7 Basophils % (Manual) Myelocytes % (Man) Promyelocytes % (Man) Blast Cells % (Manual) Nucleated RBC % 0 Metamyelocytes Hypochromia Platelet Estimate Polychromasia Poikilocytosis Anisocytosis Microcytosis Macrocytosis Sodium 137 Potassium 4.1 Chloride 102 Carbon Dioxide 26 Anion Gap 8 BUN 23.4 H Creatinine 0.9 Est GFR (CKD-EPI)AfAm 103.51 Est GFR (CKD-EPI)NonAf 89.31 POC Glucometer 403 Random Glucose 380 H Calcium 9.5 Magnesium 1.9 Total Bilirubin 0.4 Direct Bilirubin 0.2 AST 19 ALT 33 Alkaline Phosphatase 153 H Total Protein 6.5 Albumin 3.2 L Total Amylase 77 Lipase 993 H Free T4 0.99 01/23/20 01/23/20 01/23/20 17:49 20:11 21:52 WBC RBC Hgb Hct MCV MCH MCHC RDW Plt Count MPV Absolute Neuts (auto) Neutrophils % Neutrophils % (Manual) Band Neutrophils % Lymphocytes % Lymphocytes % (Manual) Monocytes % Monocytes % (Manual) Eosinophils % Eosinophils % (Manual) Basophils % Basophils % (Manual) Myelocytes % (Man) Promyelocytes % (Man) Blast Cells % (Manual) Nucleated RBC % Metamyelocytes Hypochromia Platelet Estimate Polychromasia Poikilocytosis Anisocytosis Microcytosis Macrocytosis Sodium Potassium Chloride Carbon Dioxide Anion Gap BUN Creatinine Est GFR (CKD-EPI)AfAm Est GFR (CKD-EPI)NonAf POC Glucometer 313 236 217 Random Glucose Calcium Magnesium Total Bilirubin Direct Bilirubin AST ALT Alkaline Phosphatase Total Protein Albumin Total Amylase Lipase Free T4 01/24/20 01/24/20 01/24/20 00:10 01:57 04:13 WBC RBC Hgb Hct MCV MCH MCHC RDW Plt Count MPV Absolute Neuts (auto) Neutrophils % Neutrophils % (Manual) Band Neutrophils % Lymphocytes % Lymphocytes % (Manual) Monocytes % Monocytes % (Manual) Eosinophils % Eosinophils % (Manual) Basophils % Basophils % (Manual) Myelocytes % (Man) Promyelocytes % (Man) Blast Cells % (Manual) Nucleated RBC % Metamyelocytes Hypochromia Platelet Estimate Polychromasia Poikilocytosis Anisocytosis Microcytosis Macrocytosis Sodium Potassium Chloride Carbon Dioxide Anion Gap BUN Creatinine Est GFR (CKD-EPI)Af Est GFR (CKD-EPI)NonAf POC Glucometer 228 235 247 Random Glucose Calcium Magnesium Total Bilirubin Direct Bilirubin AST ALT Alkaline Phosphatase Total Protein Albumin Total Amylase Lipase Free T4 01/24/20 01/24/20 01/24/20 06:18 06:18 06:31 WBC 7.1 RBC 4.31 Hgb 13.9 Hct 41.5 MCV 96.4 H MCH 32.2 MCHC 33.4 RDW 14.1 Plt Count 257 MPV 7.6 Absolute Neuts (auto) 6.5 Neutrophils % 91.3 H Neutrophils % (Manual) 85.1 H Band Neutrophils % 3.0 Lymphocytes % 8.0 Lymphocytes % (Manual) 9.9 D Monocytes % 0.6 L D Monocytes % (Manual) 1 L Eosinophils % 0.0 D Eosinophils % (Manual) 0.0 D Basophils % 0.1 Basophils % (Manual) 0.0 Myelocytes % (Man) 1 D Promyelocytes % (Man) 0 Blast Cells % (Manual) 0 Nucleated RBC % 0 Metamyelocytes 0 D Hypochromia 0 Platelet Estimate Normal Polychromasia 0 Poikilocytosis 0 Anisocytosis 1+ Microcytosis 0 Macrocytosis 1+ Sodium 140 Potassium 3.6 Chloride 102 Carbon Dioxide 29 Anion Gap 8 BUN 22.3 H Creatinine 0.8 Est GFR (CKD-EPI)AfAm 108.65 Est GFR (CKD-EPI)NonAf 93.74 POC Glucometer 209 Random Glucose 192 H Calcium 8.8 Magnesium Total Bilirubin 0.5 Direct Bilirubin AST 13 L ALT 26 Alkaline Phosphatase 121 H Total Protein 6.0 L Albumin 2.9 L Total Amylase Lipase Free T4 01/24/20 01/24/20 01/24/20 07:42 09:52 11:53 WBC RBC Hgb Hct MCV MCH MCHC RDW Plt Count MPV Absolute Neuts (auto) Neutrophils % Neutrophils % (Manual) Band Neutrophils % Lymphocytes % Lymphocytes % (Manual) Monocytes % Monocytes % (Manual) Eosinophils % Eosinophils % (Manual) Basophils % Basophils % (Manual) Myelocytes % (Man) Promyelocytes % (Man) Blast Cells % (Manual) Nucleated RBC % Metamyelocytes Hypochromia Platelet Estimate Polychromasia Poikilocytosis Anisocytosis Microcytosis Macrocytosis Sodium Potassium Chloride Carbon Dioxide Anion Gap BUN Creatinine Est GFR (CKD-EPI)AfAm Est GFR (CKD-EPI)NonAf POC Glucometer 187 210 205 Random Glucose Calcium Magnesium Total Bilirubin Direct Bilirubin AST ALT Alkaline Phosphatase Total Protein Albumin Total Amylase Lipase Free T4 ASSESSMENT/PLAN: S/P Keytruda infusion : Previous history of Angioedema Metastatic melanoma NIDDM2 COPD HTN HLD AFib (not on AC, hx of GI bleed and falls) Anxiety S/P craniotomies x3 with craniectomy OOB to chair Home meds to be continued PO as tolerated DC planning Dr Holder
[2020-01-24 14:02] VITALS: BP 135/65; PULSE 73; TEMP 98.1
[2020-01-24] MEDS ORDERED: predniSONE 10 MG TABLET (UD) PO ONE (14:49)
--- NOTE | 2020-01-25 05:27 | PN ---
Teaching Attending Note Name of Resident: Claudy Trevino ATTENDING PHYSICIAN STATEMENT I saw and evaluated the patient. I reviewed the resident's note and discussed the case with the resident. I agree with the resident's findings and plan as documented. ASSESSMENT AND PLAN: 64 yo M with metastatic melanoma. h/o disease to bone, brain, and abd. S/p multiple surgeries, interferon, and immunotherapy Brain MRI (01/02)- R frontal encephalomalacia with ex-vacuo dilatation of lateral ventricle; craniotomy site noted; mild dural nodular enhancement with no significant associated edema Metastatic melanoma to R frontal lobe s/p surgical resection followed by gamma knife boost Small enhancing lesion could be post-surgical/post RT No further neurosurgical tx for this small lesion recommended at this time Follow-up brain MRI in 2-3 months (or 3 months after prior MRI, around mid to late March 2020) to assess stability of MRI lesion Cont chemo regimen per med onc. Prior delayed reaction, angioedema, to pembrolizumab. None when re-challenged in 08/2019. Admitted to ICU for next cycle of pembrolizumab in monitored setting. 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 Collins and close follow up with him
--- NOTE | 2020-01-26 02:40 | CONS ---
DATE OF CONSULTATION: 01/24/2020 CHIEF COMPLAINT: Right frontal metastatic melanoma. HISTORY OF PRESENT ILLNESS: The patient is a 64-year-old, right-handed male with history of metastatic melanoma, with metastases to the lung and brain, who had presented to the hospital for chemotherapy treatment. He has a history of known type 2 diabetes, as well as COPD, hypertension, hypercholesterolemia, atrial fibrillation and anxiety. He underwent craniotomy in August 2019, followed by postoperative radiation boost with stereotactic radiosurgery to the right frontal tumor bed in September. He has done fairly well since. He denies significant headache and has no nausea, vomiting or visual changes. He has no increasing weakness. He had initially presented with right costal margin pain with pleural effusion but the costal margin pain has improved. He is being admitted for infusion of Keytruda. The patient has no recent seizure activity and has no fever or chills. He has had no other recent infection. He denies any cough and has tested positive for COVID by report. PAST MEDICAL HISTORY: Significant for metastatic melanoma, type 2 diabetes, COPD, hypercholesterolemia, atrial fibrillation not on anticoagulation, anxiety. CURRENT MEDICATIONS: Insulin coverage, Symbicort. ALLERGIES: CODEINE AND MORPHINE. SOCIAL HISTORY: He used to smoke but not any more. He lives at home with his . He does not work any more. REVIEW OF SYSTEMS: Otherwise negative for major constitutional, head, neck, cardiovascular, pulmonary, gastrointestinal, genitourinary, endocrinological, neurological or psychological problems except for the above. PHYSICAL EXAMINATION: Vital Signs: Temperature is 98.3; blood pressure is 130/63 with pulse rate of 65; O2 saturation is 96% on room air. HEENT: Examination shows him to be normocephalic, atraumatic. The right frontal scalp incision has healed. Neck: Supple with no carotid bruit. Coronary: Demonstrates regular rhythm. Lungs: Clear. Abdomen: Benign. Extremities: No obvious signs of DVT. Neurologic: The patient's speech is normal. His memory is intact. Cranial nerve examination is intact, II-XII. Motor examination shows 5/5 strength without drift. Sensory examination intact to light touch. Deep tendon reflexes are 1+ throughout. There is no pathological tract sign. Gait is not tested for safety reasons. LABORATORY EXAMINATION: White blood cell count of 7.1; hemoglobin is 13.9, hematocrit is 41.5; platelet count is 257,000. Serum sodium is 140 and potassium is 3.6; BUN is 22 and creatinine 0.8. Albumin is 2.9. LFTs are generally normal except for moderately elevated alkaline phosphatase of 121. IMAGING: The MRI of the brain performed on January 02 demonstrated stable postoperative appearance. There is encephalomalacia in the right frontal region after tumor resection and stereotactic radiosurgery treatment. There are some chronic blood products. There is a small extra-axial, 7 x 4-mm enhancement, which is nonspecific and could be epidural scarring. There is no significant brain edema or mass effect. IMPRESSION: 1. Status post craniotomy for resection of a right frontal malignant melanoma metastasis, followed by postoperative Gamma Knife stereotactic radiosurgery treatment. 2. Small right frontal dural/epidural enhancement, fibrosis and, less likely, tumor recurrence. 3. Type 2 diabetes. 4. Chronic obstructive pulmonary disease. 5. Hypertension with atrial fibrillation. 6. Hypercholesterolemia. 7. Anxiety. RECOMMENDATIONS: The patient presented for Keytruda infusion because of his nicol-infusion side effects and possible allergy. He has done well with this particular infusion. The patient denies any significant headache, nausea, vomiting or any signs of increased intracranial pressure. Neurologic examination is nonfocal. MRI demonstrated right frontal encephalomalacia. There is no clear return of tumor. There is this mild dural/epidural nodular enhancement with unclear significance. There is no associated parenchymal lesion. This lesion is small enough to be observed only. New MRI of the brain, with and without gadolinium, should be done in about 3 months from the time of his last MRI scan. The patient is to report any new neurological symptoms to his treating physicians right away if they were to occur. That is not the case at this point. No neurosurgical intervention is recommended at this time. The above MRI findings were discussed with the patient at bedside in detail in the ICU. All questions were answered. SOURAV SANCHEZ M.D. [facility]/[id number]
== END 2020-01-24 15:25 | disposition home or self-care (01) ==
LOC: JONCCHEMO 07:15 → JICU 14:04 → JONCCHEMO 01-24 15:25
PROVIDERS: ATTEND Internal Medicine Hematology & Oncology
DX: Z51.11 Encounter for antineoplastic chemotherapy (principal); C43.9 Malignant melanoma of skin, unspecified; C78.00 Secondary malignant neoplasm of unspecified lung; C79.31 Secondary malignant neoplasm of brain; E11.9 Type 2 diabetes mellitus without complications; Z79.4 Long term (current) use of insulin; J44.9 Chronic obstructive pulmonary disease, unspecified; Z87.891 Personal history of nicotine dependence; I48.91 Unspecified atrial fibrillation
CPT/HCPCS: 36415; 80048; 80053; 80076; 82150; 82962; 83690; 83735; 84439; 85025; 86705; 87350; 96367; 96375; 96413; 96415; J1100; J9271

== ENCOUNTER 2020-02-13 07:32 | Day surgery (SDC) | payer OTHER, BC ==
[2020-02-13] MEDS ORDERED: DEXAMETHASONE SODIUM PHOSPHATE 10 MG in SODIUM CHLORIDE 50 ML IVPB ONE (10:00)
[2020-02-13] MEDS ORDERED: SODIUM CHLORIDE 500 ML IV ONE (10:00)
[2020-02-13 11:33] LABS: BASO % 1.3 % (0-2.0); EOS % 1.1 % (0-4.5); HEMATOCRIT 41.3 % (35.4-49); HEMOGLOBIN 13.7 GM/dL (11.7-16.9); LYMPH % 9.7 % (8-40); MCH 32.1 pg (25.7-33.7); MCHC 33.1 g/dl (32.0-35.9); MONO % 5.6 % (3.8-10.2); NEUT % 82.3 % (42.8-82.8); PLATELET COUNT 147 K/MM3 (134-434); RBC 4.25 M/mm3 (4.00-5.60); RDW 14.6 % (11.9-15.9); WHITE BLOOD COUNT 6.6 K/mm3 (4.0-10.0)
[2020-02-13 12:02] LABS: AMYLASE 124 U/L (25-115)
[2020-02-13 12:03] LABS: LIPASE 1898 U/L (73-393)
[2020-02-13 12:10] LABS: ALBUMIN 3.6 g/dl (3.4-5.0); BILIRUBIN,DIRECT 0.3 mg/dL (0.0-0.2); BILIRUBIN,TOTAL 0.9 mg/dL (0.2-1); BLOOD UREA NITROGEN 22.3 mg/dL (7-18); CALCIUM 8.9 mg/dL (8.5-10.1); CREATININE 0.9 mg/dL (0.55-1.3); MAGNESIUM 2.2 mg/dL (1.8-2.4); POTASSIUM 4.6 mmol/L (3.5-5.1); TOT PROT 6.4 g/dl (6.4-8.2)
[2020-02-13] MEDS: INSULIN SLIDING SCALE (NOVOLOG) 1 VIAL SQ SCH ×3 (13:51→17:34)
[2020-02-13] MEDS ORDERED: ACETAMINOPHEN 500 MG TABLET (FP) PO ONE (14:00)
[2020-02-13] MEDS ORDERED: DEXAMETHASONE INJECTION 20 MG, DIPHENHYDRAMINE 50 MG in SODIUM CHLORIDE 100 ML IVPUSH ONE (14:00)
[2020-02-13] MEDS ORDERED: SODIUM CHLORIDE 1,000 ML IV ONE (14:30)
[2020-02-13] MEDS ORDERED: PEMBROLIZUMAB 200 MG in SODIUM CHLORIDE 100 ML IV ONE (14:30)
[2020-02-13 16:32] VITALS: TEMP 97.8
[2020-02-13 18:58] VITALS: BP 104/53; PULSE 62
== END 2020-02-13 18:05 | disposition home or self-care (01) ==
LOC: JONCCHEMO 07:32
PROVIDERS: ATTEND Internal Medicine Hematology & Oncology
DX: Z51.11 Encounter for antineoplastic chemotherapy (principal); C43.9 Malignant melanoma of skin, unspecified; C78.00 Secondary malignant neoplasm of unspecified lung; E11.9 Type 2 diabetes mellitus without complications
CPT/HCPCS: 36415; 80048; 80076; 82150; 82962; 83690; 83735; 84439; 84443; 85025; 96361; 96367; 96375; 96413; J1100; J9271

== ENCOUNTER 2020-03-26 06:27 | Day surgery (SDC) | payer OTHER, BC ==
[2020-03-26] MEDS ORDERED: DEXAMETHASONE SODIUM PHOSPHATE 10 MG in SODIUM CHLORIDE 50 ML IVPB ONE (09:00)
[2020-03-26] MEDS ORDERED: SODIUM CHLORIDE 500 ML IV ONE ×2 (09:00→15:00)
[2020-03-26] MEDS ORDERED: SODIUM CHLORIDE 1,000 ML IV ONE (10:00)
[2020-03-26 10:13] LABS: BASO % 1.2 % (0-2.0); EOS % 1.4 % (0-4.5); HEMOGLOBIN 13.5 GM/dL (11.7-16.9); LYMPH % 10.1 % (8-40); MCH 32.6 pg (25.7-33.7); MCHC 33.7 g/dl (32.0-35.9); MEAN CELL VOLUME 96.6 fl (80-96); MEAN PLT VOLUME 8.6 fl (7.5-11.1); MONO % 6.2 % (3.8-10.2); NEUT % 81.1 % (42.8-82.8); PLATELET COUNT 166 K/MM3 (134-434); RBC 4.14 M/mm3 (4.00-5.60); RDW 15.7 % (11.9-15.9); WHITE BLOOD COUNT 7.1 K/mm3 (4.0-10.0)
[2020-03-26 11:19] LABS: ALBUMIN 3.3 g/dl (3.4-5.0); CALCIUM 8.6 mg/dL (8.5-10.1); TOT PROT 6.2 g/dl (6.4-8.2)
[2020-03-26 11:20] LABS: BILIRUBIN,DIRECT 0.2 mg/dL (0.0-0.2); BLOOD UREA NITROGEN 16.5 mg/dL (7-18); CREATININE 0.9 mg/dL (0.55-1.3); MAGNESIUM 1.8 mg/dL (1.8-2.4); POTASSIUM 4.8 mmol/L (3.5-5.1)
[2020-03-26] MEDS ORDERED: DEXAMETHASONE SODIUM PHOSPHATE 20 MG, DIPHENHYDRAMINE 50 MG in SODIUM CHLORIDE 100 ML IVPB ONE (11:30)
[2020-03-26] MEDS ORDERED: PEMBROLIZUMAB 200 MG in SODIUM CHLORIDE 100 ML IV ONE (12:00)
[2020-03-26] MEDS ORDERED: ACETAMINOPHEN 500 MG TABLET (FP) PO ONE (13:00)
[2020-03-26] MEDS ORDERED: INSULIN (NOVOLOG) ASPART 100 UNITS/ML 10ML VIAL SQ ONE ×3 (13:30→17:45)
[2020-03-26] MEDS: INSULIN SLIDING SCALE (NOVOLOG) 1 VIAL SQ SCH ×2 (16:57→17:35)
[2020-03-26 17:46] VITALS: BP 143/59; PULSE 61; TEMP 98
== END 2020-03-26 18:10 | disposition home or self-care (01) ==
LOC: JONCCHEMO 06:27
PROVIDERS: ATTEND Internal Medicine Hematology & Oncology
DX: Z51.11 Encounter for antineoplastic chemotherapy (principal); C43.9 Malignant melanoma of skin, unspecified; C78.00 Secondary malignant neoplasm of unspecified lung; E11.9 Type 2 diabetes mellitus without complications
CPT/HCPCS: 36415; 80048; 80076; 82150; 82533; 82962; 83036; 83690; 83735; 84439; 84443; 85025; 96361; 96367; 96413; J9271

== ENCOUNTER 2020-05-27 06:50 | Day surgery (SDC) | payer OTHER, BC ==
[~2020-05-27 06:50] MED LIST: SODIUM CHLORIDE 1,000 ML IV ONE
[2020-05-27] MEDS ORDERED: SODIUM CHLORIDE 500 ML IV ONE ×2 (09:00)
[2020-05-27] MEDS ORDERED: DEXAMETHASONE SOD PHOSPHATE 20 MG/5 ML VIAL IVPB ONE (10:12)
[2020-05-27] MEDS ORDERED: DEXAMETHASONE SODIUM PHOSPHATE 20 MG, DIPHENHYDRAMINE 50 MG in SODIUM CHLORIDE 100 ML IVPB ONE (11:30)
[2020-05-27] MEDS ORDERED: ACETAMINOPHEN 500 MG TABLET (FP) PO ONE (11:30)
[2020-05-27 11:32] LABS: BASO % 0.6 % (0-2.0); EOS % 1.1 % (0-4.5); HEMATOCRIT 43.7 % (35.4-49); HEMOGLOBIN 14.6 GM/dL (11.7-16.9); LYMPH % 7.3 % (8-40); MCH 33.4 pg (25.7-33.7); MCHC 33.3 g/dl (32.0-35.9); MEAN CELL VOLUME 100.3 fl (80-96); PLATELET COUNT 198 K/MM3 (134-434); RBC 4.36 M/mm3 (4.00-5.60); RDW 14.4 % (11.9-15.9); WHITE BLOOD COUNT 8.5 K/mm3 (4.0-10.0)
[2020-05-27 11:35] LABS: CALCIUM 9.7 mg/dL (8.5-10.1)
[2020-05-27 11:36] LABS: ALBUMIN 3.7 g/dl (3.4-5.0); BLOOD UREA NITROGEN 23.7 mg/dL (7-18); MAGNESIUM 2.1 mg/dL (1.8-2.4)
[2020-05-27 11:38] LABS: BILIRUBIN,DIRECT 0.2 mg/dL (0.0-0.2); CREATININE 0.9 mg/dL (0.55-1.3)
[2020-05-27 11:40] LABS: BILIRUBIN,TOTAL 0.8 mg/dL (0.2-1); TOT PROT 6.7 g/dl (6.4-8.2)
[2020-05-27] MEDS ORDERED: PEMBROLIZUMAB 200 MG in SODIUM CHLORIDE 100 ML IV ONE (12:00)
[2020-05-27] MEDS ORDERED: INSULIN (NOVOLOG) ASPART 100 UNITS/ML 10ML VIAL SQ ONE ×2 (12:30→15:35)
[2020-05-27] MEDS ORDERED: SODIUM CHLORIDE 1,000 ML IV ONE (13:00)
[2020-05-27] MEDS ORDERED: DEXAMETHASONE INJECTION 10 MG in SODIUM CHLORIDE 50 ML IVPB ONE (13:00)
[2020-05-27] MEDS ORDERED: DIPHENHYDRAMINE 50 MG in SODIUM CHLORIDE 50 ML IVPB ONE (14:00)
[2020-05-27 16:46] VITALS: BP 108/50; PULSE 58; TEMP 98.5
== END 2020-05-27 16:00 | disposition home or self-care (01) ==
LOC: JONCCHEMO 06:50
PROVIDERS: ATTEND Internal Medicine Hematology & Oncology
DX: Z51.11 Encounter for antineoplastic chemotherapy (principal); C34.31 Malignant neoplasm of lower lobe, right bronchus or lung; C7A.8 Other malignant neuroendocrine tumors; E11.9 Type 2 diabetes mellitus without complications; Z79.4 Long term (current) use of insulin
CPT/HCPCS: 36415; 80048; 80076; 82150; 82962; 83690; 83735; 84436; 84439; 84443; 85025; 96361; 96367; 96375; 96413; J1100; J9271

== ENCOUNTER 2020-06-17 06:22 | Day surgery (SDC) | payer OTHER, BC ==
[2020-06-17] MEDS ORDERED: SODIUM CHLORIDE 500 ML IV ONE (09:00)
[2020-06-17] MEDS ORDERED: DEXAMETHASONE SODIUM PHOSPHATE 10 MG, DIPHENHYDRAMINE 50 MG in SODIUM CHLORIDE 100 ML IVPB ONE (10:00)
[2020-06-17] MEDS ORDERED: ACETAMINOPHEN 500 MG TABLET (FP) PO ONE (10:00)
[2020-06-17] MEDS ORDERED: PEMBROLIZUMAB 200 MG in SODIUM CHLORIDE 100 ML IV ONE (10:30)
[2020-06-17 11:24] LABS: BASO % 0.6 % (0-2.0); EOS % 1.5 % (0-4.5); HEMATOCRIT 41.9 % (35.4-49); HEMOGLOBIN 13.9 GM/dL (11.7-16.9); LYMPH % 8.9 % (8-40); MCH 33.2 pg (25.7-33.7); MCHC 33.1 g/dl (32.0-35.9); MEAN CELL VOLUME 100.3 fl (80-96); MEAN PLT VOLUME 7.8 fl (7.5-11.1); MONO % 5.5 % (3.8-10.2); NEUT % 83.5 % (42.8-82.8); PLATELET COUNT 189 K/MM3 (134-434); RBC 4.18 M/mm3 (4.00-5.60); RDW 14.4 % (11.9-15.9); WHITE BLOOD COUNT 8.8 K/mm3 (4.0-10.0)
[2020-06-17 11:40] LABS: POTASSIUM 4.3 mmol/L (3.5-5.1)
[2020-06-17 11:44] LABS: ALBUMIN 3.4 g/dl (3.4-5.0); BLOOD UREA NITROGEN 22.4 mg/dL (7-18); CALCIUM 8.7 mg/dL (8.5-10.1); MAGNESIUM 1.9 mg/dL (1.8-2.4)
[2020-06-17 11:47] LABS: BILIRUBIN,DIRECT 0.3 mg/dL (0.0-0.2); CREATININE 0.9 mg/dL (0.55-1.3)
[2020-06-17 11:48] LABS: BILIRUBIN,TOTAL 0.7 mg/dL (0.2-1); TOT PROT 6.2 g/dl (6.4-8.2)
[2020-06-17] MEDS: INSULIN SLIDING SCALE (NOVOLOG) 1 VIAL SQ SCH ×2 (13:27→15:26)
[2020-06-17 14:54] VITALS: TEMP 97.6
[2020-06-17 16:26] VITALS: BP 107/53; PULSE 54
== END 2020-06-17 16:10 | disposition home or self-care (01) ==
LOC: JONCCHEMO 06:22
PROVIDERS: ATTEND Internal Medicine Hematology & Oncology
DX: Z51.11 Encounter for antineoplastic chemotherapy (principal); C34.31 Malignant neoplasm of lower lobe, right bronchus or lung; C7A.8 Other malignant neuroendocrine tumors; E11.9 Type 2 diabetes mellitus without complications; Z79.4 Long term (current) use of insulin
CPT/HCPCS: 36415; 80048; 80076; 82150; 82962; 83690; 83735; 84439; 84443; 85025; 96361; 96367; 96413; J9271

== ENCOUNTER 2020-07-16 07:47 | Day surgery (SDC) | payer OTHER, BC ==
[~2020-07-16 07:47] MED LIST changes: -SODIUM CHLORIDE 1,000 ML IV ONE; +SODIUM CHLORIDE 500 ML IV ONE
[2020-07-16] MEDS ORDERED: SODIUM CHLORIDE 500 ML IV ONE (09:00)
[2020-07-16] MEDS ORDERED: ACETAMINOPHEN 500 MG TABLET (FP) PO ONE (10:30)
[2020-07-16] MEDS ORDERED: DEXAMETHASONE SODIUM PHOSPHATE 10 MG, DIPHENHYDRAMINE 50 MG in SODIUM CHLORIDE 100 ML IVPB ONE (10:30)
[2020-07-16] MEDS ORDERED: PEMBROLIZUMAB 200 MG in SODIUM CHLORIDE 100 ML IV ONE (11:00)
[2020-07-16 11:23] LABS: BASO % 0.9 % (0-2.0); EOS % 1.2 % (0-4.5); HEMATOCRIT 43.4 % (35.4-49); HEMOGLOBIN 14.9 GM/dL (11.7-16.9); LYMPH % 7.5 % (8-40); MCH 34.2 pg (25.7-33.7); MCHC 34.3 g/dl (32.0-35.9); MEAN CELL VOLUME 99.9 fl (80-96); MEAN PLT VOLUME 7.6 fl (7.5-11.1); MONO % 6.2 % (3.8-10.2); NEUT % 84.2 % (42.8-82.8); PLATELET COUNT 198 K/MM3 (134-434); RBC 4.35 M/mm3 (4.00-5.60); RDW 14.6 % (11.9-15.9); WHITE BLOOD COUNT 10.4 K/mm3 (4.0-10.0)
[2020-07-16 11:46] LABS: ALBUMIN 3.6 g/dl (3.4-5.0); BLOOD UREA NITROGEN 19.2 mg/dL (7-18)
[2020-07-16 11:48] LABS: BILIRUBIN,DIRECT 0.3 mg/dL (0.0-0.2)
[2020-07-16 11:49] LABS: CREATININE 0.8 mg/dL (0.55-1.3)
[2020-07-16 11:50] LABS: TOT PROT 6.4 g/dl (6.4-8.2)
[2020-07-16 12:00] LABS: MAGNESIUM 1.9 mg/dL (1.8-2.4)
[2020-07-16] MEDS: INSULIN SLIDING SCALE (NOVOLOG) 1 VIAL SQ SCH ×2 (12:28→15:49)
[2020-07-16 16:52] VITALS: TEMP 98.1
[2020-07-16 17:01] VITALS: BP 117/51; PULSE 57
== END 2020-07-16 16:15 | disposition home or self-care (01) ==
LOC: JONCCHEMO 07:47
PROVIDERS: ATTEND Internal Medicine Hematology & Oncology
DX: Z51.11 Encounter for antineoplastic chemotherapy (principal); C34.31 Malignant neoplasm of lower lobe, right bronchus or lung; C7A.8 Other malignant neuroendocrine tumors; E11.9 Type 2 diabetes mellitus without complications; Z79.4 Long term (current) use of insulin
CPT/HCPCS: 36415; 80048; 80076; 82150; 82962; 83690; 83735; 84439; 84443; 85025; 96361; 96375; 96413; J9271

== ENCOUNTER 2020-08-06 06:54 | Day surgery (SDC) | payer OTHER, BC ==
[2020-08-06] MEDS ORDERED: SODIUM CHLORIDE 500 ML IV ONE (09:00)
[2020-08-06] MEDS ORDERED: DEXAMETHASONE SODIUM PHOSPHATE 10 MG, DIPHENHYDRAMINE 50 MG in SODIUM CHLORIDE 100 ML IVPB ONE (10:00)
[2020-08-06] MEDS ORDERED: ACETAMINOPHEN 500 MG TABLET (FP) PO ONE (10:00)
[2020-08-06] MEDS ORDERED: PEMBROLIZUMAB 200 MG in SODIUM CHLORIDE 100 ML IV ONE (10:30)
[2020-08-06 11:33] LABS: BASO % 0.6 % (0-2.0); EOS % 1.9 % (0-4.5); HEMATOCRIT 42.8 % (35.4-49); HEMOGLOBIN 14.9 GM/dL (11.7-16.9); LYMPH % 11.9 % (8-40); MCH 34.5 pg (25.7-33.7); MCHC 34.8 g/dl (32.0-35.9); MEAN CELL VOLUME 99.2 fl (80-96); MEAN PLT VOLUME 7.7 fl (7.5-11.1); MONO % 6.2 % (3.8-10.2); NEUT % 79.4 % (42.8-82.8); PLATELET COUNT 178 K/MM3 (134-434); RBC 4.32 M/mm3 (4.00-5.60); WHITE BLOOD COUNT 9.4 K/mm3 (4.0-10.0)
[2020-08-06 12:01] LABS: POTASSIUM 3.9 mmol/L (3.5-5.1)
[2020-08-06 12:04] LABS: CALCIUM 9.3 mg/dL (8.5-10.1)
[2020-08-06 12:05] LABS: ALBUMIN 3.6 g/dl (3.4-5.0); BLOOD UREA NITROGEN 24.3 mg/dL (7-18)
[2020-08-06 12:07] LABS: BILIRUBIN,DIRECT 0.3 mg/dL (0.0-0.2); CREATININE 0.8 mg/dL (0.55-1.3)
[2020-08-06 12:08] LABS: TOT PROT 6.2 g/dl (6.4-8.2)
[2020-08-06 12:19] LABS: BILIRUBIN,TOTAL 0.9 mg/dL (0.2-1)
[2020-08-06 16:21] VITALS: TEMP 98.2
[2020-08-06 16:22] VITALS: BP 97/71; PULSE 57
== END 2020-08-06 14:45 | disposition home or self-care (01) ==
LOC: JONCCHEMO 06:54
PROVIDERS: ATTEND Internal Medicine Hematology & Oncology
DX: Z51.11 Encounter for antineoplastic chemotherapy (principal); C34.31 Malignant neoplasm of lower lobe, right bronchus or lung; C7A.8 Other malignant neuroendocrine tumors
CPT/HCPCS: 36415; 80048; 80076; 82150; 83690; 83735; 84439; 84443; 85025; 96361; 96367; 96413; J9271

== ENCOUNTER 2020-08-27 07:20 | Day surgery (SDC) | payer OTHER, BC ==
[2020-08-27] MEDS ORDERED: SODIUM CHLORIDE 250 ML IV ONE (09:00)
[2020-08-27] MEDS ORDERED: DEXAMETHASONE SODIUM PHOSPHATE 8 MG, DIPHENHYDRAMINE 50 MG in SODIUM CHLORIDE 100 ML IVPB ONE (09:00)
[2020-08-27] MEDS ORDERED: SODIUM CHLORIDE 500 ML IV ONE (09:00)
[2020-08-27] MEDS ORDERED: DEXAMETHASONE SODIUM PHOSPHATE 10 MG, DIPHENHYDRAMINE 50 MG in SODIUM CHLORIDE 100 ML IVPB ONE ×2 (10:30)
[2020-08-27] MEDS ORDERED: ACETAMINOPHEN 500 MG TABLET (FP) PO ONE (10:30)
[2020-08-27] MEDS ORDERED: PEMBROLIZUMAB 200 MG in SODIUM CHLORIDE 100 ML IV ONE (11:00)
[2020-08-27 11:05] LABS: BASO % 0.6 % (0-2.0); EOS % 1.1 % (0-4.5); HEMATOCRIT 42.5 % (35.4-49); HEMOGLOBIN 14.6 GM/dL (11.7-16.9); LYMPH % 8.1 % (8-40); MCH 34.2 pg (25.7-33.7); MCHC 34.3 g/dl (32.0-35.9); MEAN CELL VOLUME 99.9 fl (80-96); MEAN PLT VOLUME 7.8 fl (7.5-11.1); MONO % 5.9 % (3.8-10.2); NEUT % 84.3 % (42.8-82.8); PLATELET COUNT 172 K/MM3 (134-434); RBC 4.25 M/mm3 (4.00-5.60); RDW 14.4 % (11.9-15.9)
[2020-08-27 11:29] LABS: POTASSIUM 3.9 mmol/L (3.5-5.1)
[2020-08-27 11:32] LABS: ALBUMIN 3.6 g/dl (3.4-5.0); BLOOD UREA NITROGEN 19.4 mg/dL (7-18); MAGNESIUM 2.1 mg/dL (1.8-2.4)
[2020-08-27 11:34] LABS: BILIRUBIN,DIRECT 0.2 mg/dL (0.0-0.2)
[2020-08-27 11:35] LABS: CREATININE 0.8 mg/dL (0.55-1.3)
[2020-08-27 11:37] LABS: TOT PROT 6.3 g/dl (6.4-8.2)
[2020-08-27 13:20] VITALS: TEMP 98.5
[2020-08-27 14:06] VITALS: BP 103/52; PULSE 57
== END 2020-08-27 14:10 | disposition home or self-care (01) ==
LOC: JONCCHEMO 07:20
PROVIDERS: ATTEND Internal Medicine Hematology & Oncology
DX: Z51.11 Encounter for antineoplastic chemotherapy (principal); C79.31 Secondary malignant neoplasm of brain; C79.51 Secondary malignant neoplasm of bone; C78.7 Secondary malignant neoplasm of liver and intrahepatic bile duct; C78.6 Secondary malignant neoplasm of retroperitoneum and peritoneum; E11.9 Type 2 diabetes mellitus without complications; I48.91 Unspecified atrial fibrillation; I10 Essential (primary) hypertension; Z79.01 Long term (current) use of anticoagulants; Z79.4 Long term (current) use of insulin
CPT/HCPCS: 36415; 80048; 80076; 82150; 82378; 82533; 82962; 83036; 83690; 83735; 84439; 84443; 85025; 96361; 96367; 96413; J9271

== ENCOUNTER 2020-09-17 07:44 | Day surgery (SDC) | payer OTHER, BC ==
[2020-09-17] MEDS ORDERED: SODIUM CHLORIDE 250 ML IV ONE (09:00)
[2020-09-17] MEDS ORDERED: ACETAMINOPHEN 500 MG TABLET (FP) PO ONE (09:30)
[2020-09-17] MEDS ORDERED: DIPHENHYDRAMINE IVPB ONE (09:30)
[2020-09-17] MEDS ORDERED: DEXAMETHASONE SODIUM PHOSPHATE IVPB ONE (09:30)
[2020-09-17] MEDS ORDERED: SODIUM CHLORIDE IVPB ONE (09:30)
[2020-09-17 09:50] LABS: BASO % 0.5 % (0-2.0); EOS % 1.1 % (0-4.5); HEMATOCRIT 41.7 % (35.4-49); HEMOGLOBIN 14.4 GM/dL (11.7-16.9); LYMPH % 7.5 % (8-40); MCH 34.5 pg (25.7-33.7); MCHC 34.4 g/dl (32.0-35.9); MEAN CELL VOLUME 100.2 fl (80-96); MEAN PLT VOLUME 7.5 fl (7.5-11.1); MONO % 5.5 % (3.8-10.2); NEUT % 85.4 % (42.8-82.8); PLATELET COUNT 184 K/MM3 (134-434); RBC 4.16 M/mm3 (4.00-5.60); RDW 13.9 % (11.9-15.9); WHITE BLOOD COUNT 9.8 K/mm3 (4.0-10.0)
[2020-09-17] MEDS ORDERED: PEMBROLIZUMAB 200 MG in SODIUM CHLORIDE 100 ML IV ONE (10:00)
[2020-09-17 10:05] LABS: POTASSIUM 4.2 mmol/L (3.5-5.1)
[2020-09-17 10:08] LABS: ALBUMIN 3.6 g/dl (3.4-5.0); BLOOD UREA NITROGEN 22.3 mg/dL (7-18); CALCIUM 8.9 mg/dL (8.5-10.1); MAGNESIUM 1.9 mg/dL (1.8-2.4)
[2020-09-17 10:11] LABS: BILIRUBIN,DIRECT 0.2 mg/dL (0.0-0.2)
[2020-09-17 10:12] LABS: BILIRUBIN,TOTAL 0.6 mg/dL (0.2-1); TOT PROT 6.3 g/dl (6.4-8.2)
[2020-09-17] MEDS ORDERED: INSULIN (NOVOLOG) ASPART 100 UNITS/ML 10ML VIAL SQ ONE ×3 (11:00→14:00)
[2020-09-17 15:13] VITALS: BP 134/56; PULSE 57; TEMP 98.2
== END 2020-09-17 13:15 | disposition home or self-care (01) ==
LOC: JONCCHEMO 07:44
PROVIDERS: ATTEND Internal Medicine Hematology & Oncology
DX: Z51.11 Encounter for antineoplastic chemotherapy (principal); C79.31 Secondary malignant neoplasm of brain; C79.51 Secondary malignant neoplasm of bone; C78.7 Secondary malignant neoplasm of liver and intrahepatic bile duct; C78.6 Secondary malignant neoplasm of retroperitoneum and peritoneum; I12.0 Hypertensive chronic kidney disease with stage 5 chronic kidney disease or end stage renal disease; N18.6 End stage renal disease; E11.9 Type 2 diabetes mellitus without complications
CPT/HCPCS: 36415; 80048; 80076; 82150; 82962; 83690; 83735; 84439; 84443; 85025; 96361; 96367; 96413; J9271

== ENCOUNTER 2020-10-08 07:23 | Day surgery (SDC) | payer OTHER, BC ==
[2020-10-08] MEDS ORDERED: SODIUM CHLORIDE 250 ML IV ONE (09:00)
[2020-10-08] MEDS ORDERED: ACETAMINOPHEN 500 MG TABLET (FP) PO ONE (10:00)
[2020-10-08] MEDS ORDERED: SODIUM CHLORIDE IVPB ONE (10:00)
[2020-10-08] MEDS ORDERED: DEXAMETHASONE SODIUM PHOSPHATE IVPB ONE (10:00)
[2020-10-08] MEDS ORDERED: DIPHENHYDRAMINE IVPB ONE (10:00)
[2020-10-08] MEDS ORDERED: PEMBROLIZUMAB 200 MG in SODIUM CHLORIDE 100 ML IV ONE (10:30)
[2020-10-08 11:23] LABS: BASO % 0.5 % (0-2.0); EOS % 0.8 % (0-4.5); HEMATOCRIT 42.8 % (35.4-49); HEMOGLOBIN 14.5 GM/dL (11.7-16.9); LYMPH % 8.5 % (8-40); MCH 34.2 pg (25.7-33.7); MCHC 33.9 g/dl (32.0-35.9); MEAN CELL VOLUME 100.8 fl (80-96); MEAN PLT VOLUME 8.1 fl (7.5-11.1); MONO % 4.9 % (3.8-10.2); NEUT % 85.3 % (42.8-82.8); PLATELET COUNT 186 K/MM3 (134-434); RBC 4.24 M/mm3 (4.00-5.60); RDW 13.7 % (11.9-15.9); WHITE BLOOD COUNT 9.7 K/mm3 (4.0-10.0)
[2020-10-08 11:44] LABS: POTASSIUM 4.6 mmol/L (3.5-5.1)
[2020-10-08 11:49] LABS: ALBUMIN 3.6 g/dl (3.4-5.0); BLOOD UREA NITROGEN 21.1 mg/dL (7-18); CALCIUM 9.4 mg/dL (8.5-10.1)
[2020-10-08 11:50] LABS: MAGNESIUM 2.1 mg/dL (1.8-2.4)
[2020-10-08 11:52] LABS: BILIRUBIN,DIRECT 0.3 mg/dL (0.0-0.2); CREATININE 0.9 mg/dL (0.55-1.3)
[2020-10-08 11:53] LABS: BILIRUBIN,TOTAL 0.8 mg/dL (0.2-1)
[2020-10-08 11:54] LABS: TOT PROT 6.4 g/dl (6.4-8.2)
[2020-10-08] MEDS ORDERED: INSULIN (NOVOLOG) ASPART 100 UNITS/ML 10ML VIAL SQ ONE (11:57)
[2020-10-08 15:36] VITALS: TEMP 98.3
[2020-10-08 15:44] VITALS: BP 117/53; PULSE 59
== END 2020-10-08 14:00 | disposition home or self-care (01) ==
LOC: JONCCHEMO 07:23
PROVIDERS: ATTEND Internal Medicine Hematology & Oncology
DX: Z51.11 Encounter for antineoplastic chemotherapy (principal); C79.31 Secondary malignant neoplasm of brain; C78.7 Secondary malignant neoplasm of liver and intrahepatic bile duct; C78.6 Secondary malignant neoplasm of retroperitoneum and peritoneum; I12.0 Hypertensive chronic kidney disease with stage 5 chronic kidney disease or end stage renal disease; N18.6 End stage renal disease; E11.9 Type 2 diabetes mellitus without complications
CPT/HCPCS: 36415; 80048; 80076; 82150; 82378; 82962; 83690; 83735; 84439; 84443; 85025; 96361; 96367; 96413; J9271

== ENCOUNTER 2020-10-29 07:25 | Day surgery (SDC) | payer OTHER, BC ==
[2020-10-29] MEDS ORDERED: SODIUM CHLORIDE 250 ML IV ONE (09:00)
[2020-10-29] MEDS ORDERED: DEXAMETHASONE SODIUM PHOSPHATE 4 MG, DIPHENHYDRAMINE 25 MG in SODIUM CHLORIDE 100 ML IVPB ONE (09:30)
[2020-10-29] MEDS ORDERED: ACETAMINOPHEN 500 MG TABLET (FP) PO ONE (09:30)
[2020-10-29] MEDS ORDERED: PEMBROLIZUMAB 200 MG in SODIUM CHLORIDE 100 ML IV ONE (10:00)
[2020-10-29 18:11] VITALS: TEMP 98
[2020-10-29 18:21] VITALS: BP 105/46; PULSE 61
== END 2020-10-29 12:45 | disposition home or self-care (01) ==
LOC: JONCCHEMO 07:25
PROVIDERS: ATTEND Internal Medicine Hematology & Oncology
DX: Z51.11 Encounter for antineoplastic chemotherapy (principal); C43.9 Malignant melanoma of skin, unspecified; C78.00 Secondary malignant neoplasm of unspecified lung; C79.31 Secondary malignant neoplasm of brain; C78.7 Secondary malignant neoplasm of liver and intrahepatic bile duct; C78.6 Secondary malignant neoplasm of retroperitoneum and peritoneum; E11.9 Type 2 diabetes mellitus without complications; N18.6 End stage renal disease
CPT/HCPCS: 96361; 96367; 96413; J9271

== ENCOUNTER 2020-11-19 07:12 | Day surgery (SDC) | payer OTHER, BC ==
[2020-11-19] MEDS ORDERED: SODIUM CHLORIDE 250 ML IV ONE (09:00)
[2020-11-19] MEDS ORDERED: DEXAMETHASONE SODIUM PHOSPHATE 4 MG, DIPHENHYDRAMINE 25 MG in SODIUM CHLORIDE 100 ML IVPB ONE (10:00)
[2020-11-19] MEDS ORDERED: ACETAMINOPHEN 500 MG TABLET (FP) PO ONE (10:00)
[2020-11-19 10:12] LABS: BASO % 0.7 % (0-2.0); EOS % 1.7 % (0-4.5); HEMATOCRIT 41.6 % (35.4-49); HEMOGLOBIN 14.6 GM/dL (11.7-16.9); LYMPH % 8.8 % (8-40); MCH 34.4 pg (25.7-33.7); MEAN CELL VOLUME 98.3 fl (80-96); MEAN PLT VOLUME 7.4 fl (7.5-11.1); MONO % 6.3 % (3.8-10.2); NEUT % 82.5 % (42.8-82.8); PLATELET COUNT 188 K/MM3 (134-434); RBC 4.23 M/mm3 (4.00-5.60); WHITE BLOOD COUNT 10.3 K/mm3 (4.0-10.0)
[2020-11-19] MEDS ORDERED: PEMBROLIZUMAB 200 MG in SODIUM CHLORIDE 100 ML IV ONE (10:30)
[2020-11-19 11:11] LABS: ALBUMIN 3.5 g/dl (3.4-5.0); CALCIUM 8.7 mg/dL (8.5-10.1)
[2020-11-19 11:14] LABS: BILIRUBIN,DIRECT 0.3 mg/dL (0.0-0.2); BLOOD UREA NITROGEN 23.7 mg/dL (7-18); MAGNESIUM 1.8 mg/dL (1.8-2.4)
[2020-11-19 11:15] LABS: CREATININE 0.7 mg/dL (0.55-1.3)
[2020-11-19 11:20] LABS: BILIRUBIN,TOTAL 0.8 mg/dL (0.2-1); TOT PROT 6.2 g/dl (6.4-8.2)
[2020-11-19 11:53] VITALS: TEMP 97.9
[2020-11-19 13:00] VITALS: BP 106/55; PULSE 58
== END 2020-11-19 13:25 | disposition home or self-care (01) ==
LOC: JONCCHEMO 07:12
PROVIDERS: ATTEND Internal Medicine Hematology & Oncology
DX: Z51.11 Encounter for antineoplastic chemotherapy (principal); C43.9 Malignant melanoma of skin, unspecified; C78.00 Secondary malignant neoplasm of unspecified lung; C79.31 Secondary malignant neoplasm of brain; C78.7 Secondary malignant neoplasm of liver and intrahepatic bile duct; C78.6 Secondary malignant neoplasm of retroperitoneum and peritoneum; E11.9 Type 2 diabetes mellitus without complications; N18.6 End stage renal disease
CPT/HCPCS: 36415; 80048; 80076; 82150; 82533; 83690; 83735; 84439; 84443; 85025; 96361; 96367; 96413; J9271

== ENCOUNTER 2020-12-10 08:29 | Day surgery (SDC) | payer OTHER, BC ==
[2020-12-10] MEDS ORDERED: SODIUM CHLORIDE 250 ML IV ONE (09:00)
[2020-12-10] MEDS ORDERED: ACETAMINOPHEN 500 MG TABLET (FP) PO ONE (10:00)
[2020-12-10] MEDS ORDERED: DEXAMETHASONE SODIUM PHOSPHATE 4 MG, DIPHENHYDRAMINE 25 MG in SODIUM CHLORIDE 100 ML IVPB ONE (10:00)
[2020-12-10] MEDS ORDERED: PEMBROLIZUMAB 200 MG in SODIUM CHLORIDE 100 ML IV ONE (10:30)
[2020-12-10] MEDS ORDERED: KETOROLAC TROMETHAMINE 15 MG/ML VIAL IVPB ONE (10:45)
[2020-12-10] MEDS ORDERED: traMADol HCL 50 MG TABLET PO ONE (11:04)
[2020-12-10 12:34] LABS: BASO % 0.5 % (0-2.0); EOS % 0.9 % (0-4.5); HEMATOCRIT 42.5 % (35.4-49); HEMOGLOBIN 14.5 GM/dL (11.7-16.9); LYMPH % 8.3 % (8-40); MEAN PLT VOLUME 7.9 fl (7.5-11.1); MONO % 5.2 % (3.8-10.2); NEUT % 85.1 % (42.8-82.8); PLATELET COUNT 207 K/MM3 (134-434); RBC 4.25 M/mm3 (4.00-5.60); RDW 14.1 % (11.9-15.9); WHITE BLOOD COUNT 9.6 K/mm3 (4.0-10.0)
[2020-12-10 13:08] LABS: BLOOD UREA NITROGEN 26.3 mg/dL (7-18); CALCIUM 8.9 mg/dL (8.5-10.1)
[2020-12-10 13:09] LABS: ALBUMIN 3.8 g/dl (3.4-5.0)
[2020-12-10 13:11] LABS: BILIRUBIN,DIRECT 0.2 mg/dL (0.0-0.2); CREATININE 0.9 mg/dL (0.55-1.3)
[2020-12-10 13:12] LABS: BILIRUBIN,TOTAL 0.8 mg/dL (0.2-1); TOT PROT 6.7 g/dl (6.4-8.2)
[2020-12-10] MEDS ORDERED: Insulin (LOG) Aspart 100 UNITS/ML VIAL SQ ONE (13:30)
[2020-12-10 18:06] VITALS: TEMP 98.2
[2020-12-10 18:14] VITALS: BP 114/47; PULSE 57
== END 2020-12-10 15:40 | disposition home or self-care (01) ==
LOC: JONCCHEMO 08:29
PROVIDERS: ATTEND Internal Medicine Hematology & Oncology
DX: Z51.11 Encounter for antineoplastic chemotherapy (principal); C43.9 Malignant melanoma of skin, unspecified; C78.00 Secondary malignant neoplasm of unspecified lung; C79.31 Secondary malignant neoplasm of brain; C78.7 Secondary malignant neoplasm of liver and intrahepatic bile duct; E11.9 Type 2 diabetes mellitus without complications; N18.6 End stage renal disease
CPT/HCPCS: 36415; 80048; 80076; 82150; 82533; 83690; 83735; 84439; 84443; 85025; 96361; 96367; 96413; J9271

== ENCOUNTER 2020-12-31 07:24 | Day surgery (SDC) | payer BC, OTHER ==
[2020-12-31] MEDS ORDERED: SODIUM CHLORIDE 250 ML IV ONE (09:00)
[2020-12-31] MEDS ORDERED: DEXAMETHASONE SODIUM PHOSPHATE 4 MG, DIPHENHYDRAMINE 25 MG in SODIUM CHLORIDE 100 ML IVPB ONE (09:30)
[2020-12-31] MEDS ORDERED: ACETAMINOPHEN 500 MG TABLET (FP) PO ONE (09:30)
[2020-12-31] MEDS ORDERED: PEMBROLIZUMAB 200 MG in SODIUM CHLORIDE 100 ML IV ONE (10:00)
[2020-12-31 11:36] LABS: BASO % 0.8 % (0-2.0); EOS % 1.7 % (0-4.5); HEMATOCRIT 43.6 % (35.4-49); HEMOGLOBIN 14.9 GM/dL (11.7-16.9); LYMPH % 6.7 % (8-40); MCH 33.7 pg (25.7-33.7); MCHC 34.2 g/dl (32.0-35.9); MEAN CELL VOLUME 98.7 fl (80-96); MEAN PLT VOLUME 7.5 fl (7.5-11.1); MONO % 6.4 % (3.8-10.2); NEUT % 84.4 % (42.8-82.8); PLATELET COUNT 197 10^3/uL (134-434); RBC 4.42 M/mm3 (4.00-5.60); RDW 13.9 % (11.9-15.9)
[2020-12-31 12:05] LABS: ALBUMIN 3.9 g/dl (3.4-5.0); CALCIUM 9.5 mg/dL (8.5-10.1)
[2020-12-31 12:06] LABS: BLOOD UREA NITROGEN 21.7 mg/dL (7-18)
[2020-12-31 12:08] LABS: BILIRUBIN,DIRECT 0.3 mg/dL (0.0-0.2); CREATININE 0.9 mg/dL (0.55-1.3)
[2020-12-31 12:09] LABS: TOT PROT 6.5 g/dl (6.4-8.2)
[2020-12-31] MEDS ORDERED: INSULIN (NOVOLOG) ASPART 100 UNITS/ML 10ML VIAL SQ ONE (12:20)
[2020-12-31 16:33] VITALS: TEMP 98.5
[2020-12-31 16:50] VITALS: BP 131/88; PULSE 74
== END 2020-12-31 14:10 | disposition home or self-care (01) ==
LOC: JONCCHEMO 07:24
PROVIDERS: ATTEND Internal Medicine Hematology & Oncology
DX: Z51.11 Encounter for antineoplastic chemotherapy (principal); C43.9 Malignant melanoma of skin, unspecified; C78.00 Secondary malignant neoplasm of unspecified lung; C79.31 Secondary malignant neoplasm of brain; C78.7 Secondary malignant neoplasm of liver and intrahepatic bile duct; N18.6 End stage renal disease
CPT/HCPCS: 36415; 80048; 80076; 82150; 82533; 83690; 83735; 84439; 84443; 85025; 96361; 96367; 96413; J9271

== ENCOUNTER 2021-01-28 06:46 | Day surgery (SDC) | payer BC, OTHER ==
[2021-01-28] MEDS ORDERED: SODIUM CHLORIDE 250 ML IV ONE (09:00)
[2021-01-28] MEDS ORDERED: DEXAMETHASONE SODIUM PHOSPHATE 4 MG, DIPHENHYDRAMINE 25 MG in SODIUM CHLORIDE 100 ML IVPB ONE (10:00)
[2021-01-28] MEDS ORDERED: ACETAMINOPHEN 500 MG TABLET (FP) PO ONE (10:00)
[2021-01-28] MEDS ORDERED: PEMBROLIZUMAB 200 MG in SODIUM CHLORIDE 100 ML IV ONE (10:30)
[2021-01-28] MEDS ORDERED: traMADol HCL 50 MG TABLET PO ONE (10:57)
[2021-01-28 11:51] LABS: BASO % 0.6 % (0-2.0); EOS % 1.9 % (0-4.5); HEMATOCRIT 42.7 % (35.4-49); HEMOGLOBIN 14.6 GM/dL (11.7-16.9); LYMPH % 7.5 % (8-40); MCH 33.7 pg (25.7-33.7); MCHC 34.3 g/dl (32.0-35.9); MEAN CELL VOLUME 98.2 fl (80-96); MEAN PLT VOLUME 7.4 fl (7.5-11.1); MONO % 6.4 % (3.8-10.2); NEUT % 83.6 % (42.8-82.8); PLATELET COUNT 206 10^3/uL (134-434); RBC 4.34 M/mm3 (4.00-5.60); RDW 14.1 % (11.9-15.9)
[2021-01-28 12:18] LABS: BLOOD UREA NITROGEN 21.4 mg/dL (7-18); CALCIUM 9.1 mg/dL (8.5-10.1); MAGNESIUM 1.9 mg/dL (1.8-2.4)
[2021-01-28 12:19] LABS: ALBUMIN 3.6 g/dl (3.4-5.0)
[2021-01-28 12:21] LABS: BILIRUBIN,DIRECT 0.2 mg/dL (0.0-0.2); CREATININE 0.9 mg/dL (0.55-1.3)
[2021-01-28 12:22] LABS: TOT PROT 6.5 g/dl (6.4-8.2)
[2021-01-28 12:24] LABS: BILIRUBIN,TOTAL 0.9 mg/dL (0.2-1)
[2021-01-28] MEDS ORDERED: INSULIN (NOVOLOG) ASPART 100 UNITS/ML 10ML VIAL SQ ONE (13:12)
[2021-01-28 16:41] VITALS: TEMP 98.1
[2021-01-28 16:53] VITALS: BP 112/52; PULSE 62
== END 2021-01-28 14:45 | disposition home or self-care (01) ==
LOC: JONCCHEMO 06:46
PROVIDERS: ATTEND Internal Medicine Hematology & Oncology
DX: Z51.11 Encounter for antineoplastic chemotherapy (principal); C43.9 Malignant melanoma of skin, unspecified; C78.00 Secondary malignant neoplasm of unspecified lung; C79.31 Secondary malignant neoplasm of brain; C78.7 Secondary malignant neoplasm of liver and intrahepatic bile duct; N18.6 End stage renal disease
CPT/HCPCS: 36415; 80048; 80076; 82150; 82533; 83690; 83735; 84439; 84443; 85025; 96361; 96367; 96413; J9271

== ENCOUNTER 2021-02-18 07:13 | Day surgery (SDC) | payer BC, OTHER ==
[2021-02-18] MEDS ORDERED: SODIUM CHLORIDE 250 ML IV ONE (09:00)
[2021-02-18] MEDS ORDERED: ACETAMINOPHEN 500 MG TABLET (FP) PO ONE (09:30)
[2021-02-18] MEDS ORDERED: DEXAMETHASONE SODIUM PHOSPHATE 4 MG, DIPHENHYDRAMINE 25 MG in SODIUM CHLORIDE 100 ML IVPB ONE (09:30)
[2021-02-18] MEDS ORDERED: PEMBROLIZUMAB 200 MG in SODIUM CHLORIDE 100 ML IV ONE (10:00)
[2021-02-18 11:22] LABS: BASO % 0.8 % (0-2.0); EOS % 2.7 % (0-4.5); HEMATOCRIT 42.6 % (35.4-49); HEMOGLOBIN 14.6 GM/dL (11.7-16.9); LYMPH % 7.1 % (8-40); MCH 33.4 pg (25.7-33.7); MCHC 34.2 g/dl (32.0-35.9); MEAN CELL VOLUME 97.7 fl (80-96); MEAN PLT VOLUME 7.3 fl (7.5-11.1); NEUT % 82.4 % (42.8-82.8); PLATELET COUNT 228 10^3/uL (134-434); RBC 4.36 M/mm3 (4.00-5.60); RDW 13.9 % (11.9-15.9); WHITE BLOOD COUNT 13.2 K/mm3 (4.0-10.0)
[2021-02-18 11:37] LABS: ALBUMIN 3.6 g/dl (3.4-5.0); CALCIUM 8.9 mg/dL (8.5-10.1)
[2021-02-18 11:38] LABS: BLOOD UREA NITROGEN 24.9 mg/dL (7-18)
[2021-02-18 11:40] LABS: BILIRUBIN,DIRECT 0.2 mg/dL (0.0-0.2)
[2021-02-18 11:42] LABS: BILIRUBIN,TOTAL 0.9 mg/dL (0.2-1); TOT PROT 6.7 g/dl (6.4-8.2)
[2021-02-18] MEDS ORDERED: traMADol HCL 50 MG TABLET PO ONE (12:00)
[2021-02-18 12:40] LABS: ANISOCYTOSIS 0; HELMET CELLS 0; HOWELL-JOLLY BODIES 0; MACROCYTOSIS 0; OVALOCYTE 0; PLATELET ESTIMATE NORMAL; ROULEAU 0; SICKELED CELLS 0; TARGET CELLS 0; TEAR DROP CELLS 0; TOXIC GRANULATION 0
[2021-02-18 17:51] VITALS: BP 118/67; PULSE 72; TEMP 98.3
== END 2021-02-18 14:30 | disposition home or self-care (01) ==
LOC: JONCCHEMO 07:13
PROVIDERS: ATTEND Internal Medicine Hematology & Oncology
DX: Z51.11 Encounter for antineoplastic chemotherapy (principal); C43.9 Malignant melanoma of skin, unspecified; C78.00 Secondary malignant neoplasm of unspecified lung; C79.31 Secondary malignant neoplasm of brain; C78.7 Secondary malignant neoplasm of liver and intrahepatic bile duct; N18.6 End stage renal disease
CPT/HCPCS: 36415; 80048; 80076; 82150; 82533; 83690; 83735; 84439; 84443; 85025; 96361; 96367; 96413; J9271

== ENCOUNTER 2021-03-11 07:54 | Day surgery (SDC) | payer BC, OTHER ==
[2021-03-11] MEDS ORDERED: SODIUM CHLORIDE 250 ML IV ONE (09:00)
[2021-03-11] MEDS ORDERED: DEXAMETHASONE SODIUM PHOSPHATE 4 MG, DIPHENHYDRAMINE 25 MG in SODIUM CHLORIDE 100 ML IVPB ONE (10:00)
[2021-03-11] MEDS ORDERED: ACETAMINOPHEN 500 MG TABLET (FP) PO ONE (10:00)
[2021-03-11] MEDS ORDERED: traMADol HCL 50 MG TABLET PO PRN (10:15)
[2021-03-11] MEDS ORDERED: PEMBROLIZUMAB 200 MG in SODIUM CHLORIDE 100 ML IV ONE (10:30)
[2021-03-11 11:36] LABS: BASO % 0.7 % (0-2.0); EOS % 2.7 % (0-4.5); HEMATOCRIT 40.9 % (35.4-49); MCH 33.7 pg (25.7-33.7); MCHC 34.3 g/dl (32.0-35.9); MEAN CELL VOLUME 98.1 fl (80-96); MEAN PLT VOLUME 7.3 fl (7.5-11.1); MONO % 6.5 % (3.8-10.2); NEUT % 83.1 % (42.8-82.8); PLATELET COUNT 210 10^3/uL (134-434); RBC 4.17 M/mm3 (4.00-5.60)
[2021-03-11 12:03] LABS: CALCIUM 9.1 mg/dL (8.5-10.1)
[2021-03-11 12:04] LABS: ALBUMIN 3.6 g/dl (3.4-5.0); BLOOD UREA NITROGEN 18.8 mg/dL (7-18); MAGNESIUM 2.1 mg/dL (1.8-2.4)
[2021-03-11 12:06] LABS: BILIRUBIN,DIRECT 0.2 mg/dL (0.0-0.2)
[2021-03-11 12:07] LABS: CREATININE 0.7 mg/dL (0.55-1.3)
[2021-03-11 12:08] LABS: BILIRUBIN,TOTAL 0.7 mg/dL (0.2-1); TOT PROT 6.8 g/dl (6.4-8.2)
[2021-03-11 18:13] VITALS: BP 113/61; PULSE 61; TEMP 99
== END 2021-03-11 13:35 | disposition home or self-care (01) ==
LOC: JONCCHEMO 07:54
PROVIDERS: ATTEND Internal Medicine Hematology & Oncology
PROC: 3E03305 Introduction of Other Antineoplastic into Peripheral Vein, Percutaneous Approach (ICD-10-PCS; principal; 2021-03-11)
PROC: 3E033GC Introduction of Other Therapeutic Substance into Peripheral Vein, Percutaneous Approach (ICD-10-PCS; 2021-03-11)
PROC: 3E0337Z Introduction of Electrolytic and Water Balance Substance into Peripheral Vein, Percutaneous Approach (ICD-10-PCS; 2021-03-11)
DX: Z51.11 Encounter for antineoplastic chemotherapy (principal); C43.9 Malignant melanoma of skin, unspecified; I48.91 Unspecified atrial fibrillation; E11.9 Type 2 diabetes mellitus without complications; E78.00 Pure hypercholesterolemia, unspecified; Z79.84 Long term (current) use of oral hypoglycemic drugs
CPT/HCPCS: 36415; 80048; 80076; 82150; 82533; 83690; 83735; 84439; 84443; 85025; 96361; 96367; 96413; J9271

== ENCOUNTER 2021-04-01 07:41 | Day surgery (SDC) | payer BC, OTHER ==
[2021-04-01] MEDS ORDERED: DEXAMETHASONE SODIUM PHOSPHATE 4 MG, DIPHENHYDRAMINE 25 MG in SODIUM CHLORIDE 100 ML IVPB ONE (10:00)
[2021-04-01] MEDS ORDERED: ACETAMINOPHEN 500 MG TABLET (FP) PO ONE (10:00)
[2021-04-01] MEDS ORDERED: SODIUM CHLORIDE 250 ML IV ONE (10:00)
[2021-04-01] MEDS ORDERED: PEMBROLIZUMAB 200 MG in SODIUM CHLORIDE 100 ML IV ONE (10:30)
[2021-04-01 11:20] LABS: BASO % 0.7 % (0-2.0); EOS % 2.6 % (0-4.5); HEMATOCRIT 39.8 % (35.4-49); HEMOGLOBIN 13.7 GM/dL (11.7-16.9); LYMPH % 9.6 % (8-40); MCH 33.8 pg (25.7-33.7); MCHC 34.4 g/dl (32.0-35.9); MEAN CELL VOLUME 98.2 fl (80-96); MEAN PLT VOLUME 7.2 fl (7.5-11.1); MONO % 6.8 % (3.8-10.2); NEUT % 80.3 % (42.8-82.8); PLATELET COUNT 248 10^3/uL (134-434); RBC 4.05 M/mm3 (4.00-5.60); RDW 14.2 % (11.9-15.9); WHITE BLOOD COUNT 11.2 K/mm3 (4.0-10.0)
[2021-04-01 11:43] LABS: CALCIUM 8.9 mg/dL (8.5-10.1)
[2021-04-01 11:44] LABS: ALBUMIN 3.5 g/dl (3.4-5.0); BLOOD UREA NITROGEN 32.8 mg/dL (7-18); MAGNESIUM 1.9 mg/dL (1.8-2.4)
[2021-04-01 11:47] LABS: BILIRUBIN,DIRECT 0.1 mg/dL (0.0-0.2); CREATININE 0.8 mg/dL (0.55-1.3)
[2021-04-01 11:48] LABS: BILIRUBIN,TOTAL 0.6 mg/dL (0.2-1); TOT PROT 6.7 g/dl (6.4-8.2)
[2021-04-01 17:11] VITALS: BP 121/58; PULSE 64; TEMP 97.9
== END 2021-04-01 14:10 | disposition home or self-care (01) ==
LOC: JONCCHEMO 07:41
PROVIDERS: ATTEND Internal Medicine Hematology & Oncology
PROC: 3E03305 Introduction of Other Antineoplastic into Peripheral Vein, Percutaneous Approach (ICD-10-PCS; principal; 2021-04-01)
PROC: 3E033GC Introduction of Other Therapeutic Substance into Peripheral Vein, Percutaneous Approach (ICD-10-PCS; 2021-04-01)
PROC: 3E0337Z Introduction of Electrolytic and Water Balance Substance into Peripheral Vein, Percutaneous Approach (ICD-10-PCS; 2021-04-01)
DX: Z51.11 Encounter for antineoplastic chemotherapy (principal); C43.9 Malignant melanoma of skin, unspecified; E11.9 Type 2 diabetes mellitus without complications; E78.00 Pure hypercholesterolemia, unspecified
CPT/HCPCS: 36415; 80048; 80076; 82150; 82533; 82962; 83690; 83735; 84439; 84443; 85025; 96361; 96367; 96413; J9271

== ENCOUNTER 2021-04-22 07:31 | Day surgery (SDC) | payer BC, OTHER ==
[2021-04-22] MEDS ORDERED: SODIUM CHLORIDE 250 ML IV ONE (09:00)
[2021-04-22] MEDS ORDERED: ACETAMINOPHEN 500 MG TABLET (FP) PO ONE (09:30)
[2021-04-22] MEDS ORDERED: DEXAMETHASONE SODIUM PHOSPHATE 4 MG, DIPHENHYDRAMINE 25 MG in SODIUM CHLORIDE 100 ML IVPB ONE (09:30)
[2021-04-22] MEDS ORDERED: PEMBROLIZUMAB 200 MG in SODIUM CHLORIDE 100 ML IV ONE (10:00)
[2021-04-22 11:48] LABS: BASO % 0.7 % (0-2.0); EOS % 2.6 % (0-4.5); HEMOGLOBIN 14.2 GM/dL (11.7-16.9); LYMPH % 8.4 % (8-40); MCH 33.4 pg (25.7-33.7); MCHC 33.9 g/dl (32.0-35.9); MEAN CELL VOLUME 98.5 fl (80-96); MEAN PLT VOLUME 7.4 fl (7.5-11.1); MONO % 6.5 % (3.8-10.2); NEUT % 81.8 % (42.8-82.8); PLATELET COUNT 211 10^3/uL (134-434); RBC 4.26 M/mm3 (4.00-5.60); RDW 14.4 % (11.9-15.9); WHITE BLOOD COUNT 10.9 K/mm3 (4.0-10.0)
[2021-04-22 12:15] LABS: ALBUMIN 3.4 g/dl (3.4-5.0); CALCIUM 8.6 mg/dL (8.5-10.1)
[2021-04-22 12:16] LABS: BLOOD UREA NITROGEN 27.3 mg/dL (7-18); MAGNESIUM 1.6 mg/dL (1.8-2.4)
[2021-04-22 12:18] LABS: BILIRUBIN,DIRECT 0.2 mg/dL (0.0-0.2)
[2021-04-22 12:19] LABS: CREATININE 0.8 mg/dL (0.55-1.3)
[2021-04-22 12:20] LABS: BILIRUBIN,TOTAL 0.6 mg/dL (0.2-1); TOT PROT 6.7 g/dl (6.4-8.2)
[2021-04-22] MEDS ORDERED: MAGNESIUM SULF 50% (8.12 MEQ/2 ML-1 GM VIAL) IVPB ONE (12:38)
[2021-04-22] MEDS ORDERED: INSULIN (NOVOLOG) ASPART 100 UNITS/ML 10ML VIAL SQ ONE (12:49)
[2021-04-22] MEDS ORDERED: MAGNESIUM SULFATE IN WATER 2 GM/50 ML IVPB IVPB ONE (13:00)
[2021-04-22 16:44] VITALS: TEMP 97.9
[2021-04-22 16:45] VITALS: BP 112/60; PULSE 61
== END 2021-04-22 16:30 | disposition home or self-care (01) ==
LOC: JONCCHEMO 07:31
PROVIDERS: ATTEND Internal Medicine Hematology & Oncology
DX: Z51.11 Encounter for antineoplastic chemotherapy (principal); C43.9 Malignant melanoma of skin, unspecified; E11.9 Type 2 diabetes mellitus without complications
CPT/HCPCS: 36415; 80048; 80076; 82150; 82533; 82962; 83690; 83735; 84439; 84443; 85025; 96361; 96366; 96367; 96413; J9271

== ENCOUNTER 2021-05-13 08:10 | Day surgery (SDC) | payer BC, OTHER ==
[2021-05-13] MEDS ORDERED: SODIUM CHLORIDE 250 ML IV ONE (09:00)
[2021-05-13] MEDS ORDERED: ACETAMINOPHEN 500 MG TABLET (FP) PO ONE (09:30)
[2021-05-13] MEDS ORDERED: DEXAMETHASONE SODIUM PHOSPHATE 4 MG, DIPHENHYDRAMINE 25 MG in SODIUM CHLORIDE 100 ML IVPB ONE (09:30)
[2021-05-13] MEDS ORDERED: PEMBROLIZUMAB 200 MG in SODIUM CHLORIDE 100 ML IV ONE (10:00)
[2021-05-13] MEDS ORDERED: traMADol HCL 50 MG TABLET PO ONE (10:22)
[2021-05-13 11:33] LABS: BASO % 0.7 % (0-2.0); EOS % 3.3 % (0-4.5); HEMATOCRIT 41.2 % (35.4-49); HEMOGLOBIN 14.1 GM/dL (11.7-16.9); LYMPH % 7.2 % (8-40); MCH 33.2 pg (25.7-33.7); MCHC 34.1 g/dl (32.0-35.9); MEAN CELL VOLUME 97.3 fl (80-96); MONO % 6.2 % (3.8-10.2); NEUT % 82.6 % (42.8-82.8); PLATELET COUNT 222 10^3/uL (134-434); RBC 4.24 M/mm3 (4.00-5.60); RDW 14.1 % (11.9-15.9); WHITE BLOOD COUNT 12.1 K/mm3 (4.0-10.0)
[2021-05-13 11:59] LABS: CALCIUM 9.3 mg/dL (8.5-10.1)
[2021-05-13 12:00] LABS: ALBUMIN 3.4 g/dl (3.4-5.0); BLOOD UREA NITROGEN 19.7 mg/dL (7-18)
[2021-05-13 12:01] LABS: BILIRUBIN,DIRECT 0.2 mg/dL (0.0-0.2)
[2021-05-13 12:03] LABS: CREATININE 0.8 mg/dL (0.55-1.3)
[2021-05-13 12:04] LABS: BILIRUBIN,TOTAL 0.7 mg/dL (0.2-1); TOT PROT 6.8 g/dl (6.4-8.2)
[2021-05-13 12:10] LABS: MAGNESIUM 1.9 mg/dL (1.8-2.4)
[2021-05-13] MEDS ORDERED: Insulin (LOG) Aspart 100 UNITS/ML VIAL SQ ONE (13:05)
[2021-05-13] MEDS ORDERED: INSULIN (NOVOLOG) ASPART 100 UNITS/ML 10ML VIAL ONE ×2 (13:44→14:43)
[2021-05-13 16:14] VITALS: PULSE 62; TEMP 98.4
[2021-05-13 16:15] VITALS: BP 112/55
== END 2021-05-13 15:10 | disposition home or self-care (01) ==
LOC: JONCCHEMO 08:10
PROVIDERS: ATTEND Internal Medicine Hematology & Oncology
PROC: 3E03305 Introduction of Other Antineoplastic into Peripheral Vein, Percutaneous Approach (ICD-10-PCS; principal; 2021-05-13)
PROC: 3E013GC Introduction of Other Therapeutic Substance into Subcutaneous Tissue, Percutaneous Approach (ICD-10-PCS; 2021-05-13)
PROC: 3E013GC Introduction of Other Therapeutic Substance into Subcutaneous Tissue, Percutaneous Approach (ICD-10-PCS; 2021-05-13)
DX: Z51.11 Encounter for antineoplastic chemotherapy (principal); C43.9 Malignant melanoma of skin, unspecified; C78.00 Secondary malignant neoplasm of unspecified lung; E11.9 Type 2 diabetes mellitus without complications
CPT/HCPCS: 36415; 80048; 80076; 82150; 82378; 82530; 82962; 83690; 83735; 84439; 84443; 85025; 96361; 96367; 96372; 96413; J9271

== ENCOUNTER 2021-05-14 04:32 | Day surgery (SDC) | payer BC, OTHER ==
[2021-05-13 14:23] VITALS: BMI 24.3
[2021-05-14] MEDS ORDERED: TRIAMCINOLONE ACET 40MG/1ML VIAL ONE (07:17)
[2021-05-14] MEDS ORDERED: LIDOCAINE HCL/PF 1% SDV 5ML VIAL ONE (07:18)
[2021-05-14] MEDS ORDERED: BUPIVACAINE HCL/PF 0.5% (5MG/ML) 10 ML VIAL ONE (07:18)
[2021-05-14] MEDS ORDERED: BUPIVACAINE HCL/PF 0.25% (2.5MG/ML) 10 ML VIAL ONE (07:18)
[2021-05-14] MEDS ORDERED: DEXAMETHASONE SOD PHOSPHATE 10 MG/1 ML VIAL ONE (07:18)
[2021-05-14] MEDS ORDERED: LIDOCAINE HCL 1% PRESERVATIVE FREE - 30ML VIAL IJ ONE (11:50)
[2021-05-14 14:07] VITALS: BP 113/68; PULSE 65; TEMP 98.8
== END 2021-05-14 13:50 | disposition home or self-care (01) ==
LOC: JASU-SURG 04:32
PROVIDERS: ATTEND Pain Medicine Pain Medicine
PROC: 01HY3MZ Insertion of Neurostimulator Lead into Peripheral Nerve, Percutaneous Approach (ICD-10-PCS; principal; 2021-05-14 10:30)
DX: G89.4 Chronic pain syndrome (principal); M25.569 Pain in unspecified knee
CPT/HCPCS: 64555; C1897; J1100

== ENCOUNTER 2021-06-10 08:58 | Day surgery (SDC) | payer BC, OTHER ==
[2021-06-10] MEDS ORDERED: SODIUM CHLORIDE 250 ML IV ONE (10:00)
[2021-06-10] MEDS ORDERED: DEXAMETHASONE SODIUM PHOSPHATE 4 MG, DIPHENHYDRAMINE 25 MG in SODIUM CHLORIDE 100 ML IVPB ONE (10:30)
[2021-06-10] MEDS ORDERED: ACETAMINOPHEN 500 MG TABLET (FP) PO ONE (10:30)
[2021-06-10] MEDS ORDERED: PEMBROLIZUMAB 200 MG in SODIUM CHLORIDE 100 ML IV ONE (11:00)
[2021-06-10 13:36] LABS: BASO % 0.7 % (0-2.0); EOS % 2.5 % (0-4.5); HEMATOCRIT 40.5 % (35.4-49); HEMOGLOBIN 13.7 GM/dL (11.7-16.9); LYMPH % 11.8 % (8-40); MCHC 33.9 g/dl (32.0-35.9); MEAN CELL VOLUME 97.5 fl (80-96); MEAN PLT VOLUME 7.2 fl (7.5-11.1); PLATELET COUNT 223 10^3/uL (134-434); RBC 4.15 M/mm3 (4.00-5.60); RDW 14.1 % (11.9-15.9); WHITE BLOOD COUNT 9.5 K/mm3 (4.0-10.0)
[2021-06-10 14:24] LABS: BLOOD UREA NITROGEN 20.5 mg/dL (7-18); CALCIUM 9.2 mg/dL (8.5-10.1)
[2021-06-10 14:25] LABS: ALBUMIN 3.3 g/dl (3.4-5.0)
[2021-06-10 14:26] LABS: BILIRUBIN,DIRECT 0.2 mg/dL (0.0-0.2); CREATININE 0.8 mg/dL (0.55-1.3)
[2021-06-10 14:28] LABS: BILIRUBIN,TOTAL 0.6 mg/dL (0.2-1); TOT PROT 6.5 g/dl (6.4-8.2)
[2021-06-10 17:06] VITALS: TEMP 98.3
[2021-06-10 18:59] VITALS: BP 99/51; PULSE 61
== END 2021-06-10 17:09 | disposition home or self-care (01) ==
LOC: JONCCHEMO 08:58
PROVIDERS: ATTEND Internal Medicine Hematology & Oncology
DX: Z51.11 Encounter for antineoplastic chemotherapy (principal); C43.9 Malignant melanoma of skin, unspecified; C78.00 Secondary malignant neoplasm of unspecified lung; E11.9 Type 2 diabetes mellitus without complications
CPT/HCPCS: 36415; 80048; 80076; 82150; 82533; 83690; 83735; 84439; 84443; 85025; 96361; 96367; 96413; J9271

== ENCOUNTER 2021-07-28 10:21 | Inpatient (IN) | payer OTHER, BC ==
[2021-07-28] MEDS ORDERED: PIPERACILLIN/TAZOB 3.375 GM 3.375 GM in DEXTROSE 5%-WATER - 50 ML IVPB ONE (12:16)
[2021-07-28 12:45] LABS: INR 2.83 (0.83-1.09); PROTHROMBIN TIME (PATIENT) 32.9 SEC (9.7-13.0)
[2021-07-28 12:46] LABS: BASO % 0.5 % (0-2.0); HEMATOCRIT 36.9 % (35.4-49); HEMOGLOBIN 12.5 GM/dL (11.7-16.9); LYMPH % 5.7 % (8-40); MCH 32.5 pg (25.7-33.7); MEAN CELL VOLUME 95.8 fl (80-96); MEAN PLT VOLUME 7.3 fl (7.5-11.1); NEUT % 84.8 % (42.8-82.8); PLATELET COUNT 204 10^3/uL (134-434); RBC 3.85 M/mm3 (4.00-5.60); WHITE BLOOD COUNT 6.5 K/mm3 (4.0-10.0)
[2021-07-28] MEDS ORDERED: CEFEPIME HCL/D5W 1 GM/50 ML BAG IVPB ONE (12:53)
[2021-07-28 12:59] LABS: CALCIUM 9.1 mg/dL (8.5-10.1)
[2021-07-28 13:00] LABS: ALBUMIN 3.1 g/dl (3.4-5.0); BLOOD UREA NITROGEN 18.7 mg/dL (7-18)
[2021-07-28 13:02] LABS: CREATININE 0.9 mg/dL (0.55-1.3)
[2021-07-28 13:04] LABS: BILIRUBIN,TOTAL 0.7 mg/dL (0.2-1); TOT PROT 6.4 g/dl (6.4-8.2)
[2021-07-28] MEDS ORDERED: CEFEPIME 1 GM/100 ML BAG IVPB ONE (13:04)
[2021-07-28] MEDS ORDERED: PATIENT'S OWN MEDICATION (NON-FORMULARY) (Levalbuterol Tartrate [Xopenex Hfa] 15 GM Hfa.Ae IH PRN (13:52)
[2021-07-28] MEDS ORDERED: GABAPENTIN 300 MG CAPSULE PO SCH (14:00)
[2021-07-28] MEDS ORDERED: VANCOMYCIN 1 GM in D5W (PRE-DOCKED) 1,000 MG/250 ML IVPB SCH (17:15)
[2021-07-28] MEDS ORDERED: VANCOMYCIN 1 GRAM (PRE-DOCKED) 1,000 MG/250 ML BAG IVPB ONE (17:37)
[2021-07-28] MEDS: REPAGLINIDE 2 MG TABLET (FP) PO SCH (18:01)
[2021-07-28] MEDS: VANCOMYCIN 1 GRAM (PRE-DOCKED) 1,000 MG/250 ML BAG IVPB SCH (18:01)
[2021-07-28] MEDS: CEFEPIME 1 GM in DEXTROSE 5%-WATER 1 GM/100 ML BAG IVPB SCH (20:38)
[2021-07-28] MEDS ORDERED: predniSONE 2.5 MG TABLET PO SCH (22:00)
[2021-07-28] MEDS: GABAPENTIN 300 MG CAPSULE PO SCH (23:45)
[2021-07-28] MEDS: BUDESONIDE/FORMETEROL FUMARATE 160/4.5 mcg INHALER IH SCH (23:46)
[2021-07-29 00:55] VITALS: BMI 25.3
[2021-07-29] MEDS ORDERED: DEXTROSE 5%-WATER 100 ML IVPB ONE ×3 (02:09→17:01)
[2021-07-29] MEDS ORDERED: CEFEPIME HCL 1 GM VIAL (RESTRICTED TO ID) ONE ×3 (02:09→17:01)
[2021-07-29] MEDS: CEFEPIME 1 GM in DEXTROSE 5%-WATER 1 GM/100 ML BAG IVPB SCH ×3 (02:13→17:08)
[2021-07-29] MEDS: ACETAMINOPHEN 325 MG TABLET (FP) PO PRN (02:53)
[2021-07-29] MEDS: GABAPENTIN 300 MG CAPSULE PO SCH ×3 (06:02→21:34)
[2021-07-29] MEDS: predniSONE 5 MG TABLET (UD) PO SCH ×2 (06:02→21:35)
[2021-07-29] MEDS: metFORMIN HCL 500 MG TABLET (FP) PO SCH (06:02)
[2021-07-29] MEDS: REPAGLINIDE 2 MG TABLET (FP) PO SCH ×2 (06:30→17:08)
[2021-07-29] MEDS: BUDESONIDE/FORMETEROL FUMARATE 160/4.5 mcg INHALER IH SCH ×2 (10:01→21:36)
[2021-07-29] MEDS: ASCORBIC ACID 500 MG TABLET (FP) PO SCH (10:01)
[2021-07-29] MEDS: DIGOXIN 0.25 MG TABLET PO SCH (10:01)
[2021-07-29] MEDS: PANTOPRAZOLE 40 MG TABLET PO SCH (10:01)
[2021-07-29 10:11] LABS: BASO % 0.9 % (0-2.0); EOS % 2.7 % (0-4.5); HEMATOCRIT 35.1 % (35.4-49); HEMOGLOBIN 11.6 GM/dL (11.7-16.9); LYMPH % 10.1 % (8-40); MCH 31.8 pg (25.7-33.7); MCHC 33.2 g/dl (32.0-35.9); MEAN CELL VOLUME 95.8 fl (80-96); MEAN PLT VOLUME 7.6 fl (7.5-11.1); MONO % 10.3 % (3.8-10.2); PLATELET COUNT 217 10^3/uL (134-434); RBC 3.66 M/mm3 (4.00-5.60); RDW 14.1 % (11.9-15.9); WHITE BLOOD COUNT 6.8 K/mm3 (4.0-10.0)
[2021-07-29] MEDS: oxyCODONE HCL 5 MG TABLET PO PRN ×2 (10:32→19:39)
[2021-07-29 10:47] LABS: BILIRUBIN,TOTAL 0.6 mg/dL (0.2-1); CREATININE 0.8 mg/dL (0.55-1.3); TOT PROT 5.8 g/dl (6.4-8.2)
[2021-07-29 11:04] LABS: CALCIUM 8.9 mg/dL (8.5-10.1)
[2021-07-29 11:05] LABS: ALBUMIN 2.7 g/dl (3.4-5.0); BLOOD UREA NITROGEN 19.8 mg/dL (7-18)
[2021-07-29 11:16] LABS: ERYTHROCYTE SEDIMENTATION RATE 93 mm/hr (0-20)
[2021-07-29] MEDS: RIVAROXABAN 20 MG TABLET PO SCH (17:08)
[2021-07-29] MEDS: VANCOMYCIN 1 GRAM (PRE-DOCKED) 1,000 MG/250 ML BAG IVPB SCH (18:30)
[2021-07-29] MEDS: ALPRAZolam 0.25 MG TABLET PO PRN (18:33)
[2021-07-29] MEDS: ROSUVASTATIN CA 5 MG TABLET PO SCH (21:35)
[2021-07-30] MEDS ORDERED: CEFEPIME HCL 1 GM VIAL (RESTRICTED TO ID) ONE ×3 (00:59→16:39)
[2021-07-30] MEDS ORDERED: DEXTROSE 5%-WATER 100 ML IVPB ONE ×3 (00:59→16:39)
[2021-07-30] MEDS: CEFEPIME 1 GM in DEXTROSE 5%-WATER 1 GM/100 ML BAG IVPB SCH ×3 (01:04→17:54)
[2021-07-30] MEDS: GABAPENTIN 300 MG CAPSULE PO SCH ×3 (06:01→21:03)
[2021-07-30] MEDS: predniSONE 5 MG TABLET (UD) PO SCH ×2 (06:02→21:03)
[2021-07-30] MEDS: REPAGLINIDE 2 MG TABLET (FP) PO SCH ×2 (06:02→17:51)
[2021-07-30] MEDS: metFORMIN HCL 500 MG TABLET (FP) PO SCH (06:02)
[2021-07-30] MEDS: DIGOXIN 0.25 MG TABLET PO SCH (09:19)
[2021-07-30] MEDS: PANTOPRAZOLE 40 MG TABLET PO SCH (09:19)
[2021-07-30] MEDS: ASCORBIC ACID 500 MG TABLET (FP) PO SCH (09:19)
[2021-07-30] MEDS: BUDESONIDE/FORMETEROL FUMARATE 160/4.5 mcg INHALER IH SCH ×2 (09:20→21:03)
[2021-07-30] MEDS: oxyCODONE HCL 5 MG TABLET PO PRN (09:49)
[2021-07-30] MEDS: RIVAROXABAN 20 MG TABLET PO SCH (17:51)
[2021-07-30] MEDS: VANCOMYCIN 1 GRAM (PRE-DOCKED) 1,000 MG/250 ML BAG IVPB SCH (17:53)
[2021-07-30] MEDS: ROSUVASTATIN CA 5 MG TABLET PO SCH (21:03)
[2021-07-30] MEDS: ALPRAZolam 0.25 MG TABLET PO PRN (21:03)
[2021-07-31] MEDS ORDERED: DEXTROSE 5%-WATER 100 ML IVPB ONE ×3 (01:18→17:23)
[2021-07-31] MEDS ORDERED: CEFEPIME HCL 1 GM VIAL (RESTRICTED TO ID) ONE ×3 (01:18→17:23)
[2021-07-31] MEDS: CEFEPIME 1 GM in DEXTROSE 5%-WATER 1 GM/100 ML BAG IVPB SCH ×3 (01:21→17:58)
[2021-07-31] MEDS: metFORMIN HCL 500 MG TABLET (FP) PO SCH (06:03)
[2021-07-31] MEDS: REPAGLINIDE 2 MG TABLET (FP) PO SCH ×2 (06:04→17:01)
[2021-07-31] MEDS: predniSONE 5 MG TABLET (UD) PO SCH ×2 (06:04→21:58)
[2021-07-31] MEDS: GABAPENTIN 300 MG CAPSULE PO SCH ×3 (06:04→21:57)
[2021-07-31] MEDS: oxyCODONE HCL 5 MG TABLET PO PRN ×2 (09:14→20:14)
[2021-07-31] MEDS: ASCORBIC ACID 500 MG TABLET (FP) PO SCH (09:15)
[2021-07-31] MEDS: PANTOPRAZOLE 40 MG TABLET PO SCH (09:15)
[2021-07-31] MEDS: DIGOXIN 0.25 MG TABLET PO SCH (09:18)
[2021-07-31] MEDS: BUDESONIDE/FORMETEROL FUMARATE 160/4.5 mcg INHALER IH SCH ×2 (09:23→22:01)
[2021-07-31] MEDS: RIVAROXABAN 20 MG TABLET PO SCH (17:57)
[2021-07-31] MEDS: VANCOMYCIN 1 GRAM (PRE-DOCKED) 1,000 MG/250 ML BAG IVPB SCH (18:03)
[2021-07-31] MEDS: ROSUVASTATIN CA 5 MG TABLET PO SCH (21:57)
[2021-08-01] MEDS ORDERED: DEXTROSE 5%-WATER 100 ML IVPB ONE ×2 (00:39→09:27)
[2021-08-01] MEDS ORDERED: CEFEPIME HCL 1 GM VIAL (RESTRICTED TO ID) ONE ×2 (00:39→09:26)
[2021-08-01] MEDS: CEFEPIME 1 GM in DEXTROSE 5%-WATER 1 GM/100 ML BAG IVPB SCH ×2 (01:12→09:40)
[2021-08-01] MEDS: oxyCODONE HCL 5 MG TABLET PO PRN ×3 (06:00→21:40)
[2021-08-01] MEDS: metFORMIN HCL 500 MG TABLET (FP) PO SCH (06:01)
[2021-08-01] MEDS: GABAPENTIN 300 MG CAPSULE PO SCH ×3 (06:01→21:37)
[2021-08-01] MEDS: REPAGLINIDE 1 MG TABLET PO SCH ×2 (06:20→17:06)
[2021-08-01] MEDS: predniSONE 5 MG TABLET (UD) PO SCH ×2 (06:21→21:37)
[2021-08-01 09:37] LABS: HEMATOCRIT 36.6 % (35.4-49); MCHC 32.7 g/dl (32.0-35.9); MEAN CELL VOLUME 94.8 fl (80-96); MEAN PLT VOLUME 7.4 fl (7.5-11.1); PLATELET COUNT 295 10^3/uL (134-434); RBC 3.85 M/mm3 (4.00-5.60); RDW 14.1 % (11.9-15.9); WHITE BLOOD COUNT 8.3 K/mm3 (4.0-10.0)
[2021-08-01] MEDS: PANTOPRAZOLE 40 MG TABLET PO SCH (09:40)
[2021-08-01] MEDS: DIGOXIN 0.25 MG TABLET PO SCH (09:40)
[2021-08-01] MEDS: ASCORBIC ACID 500 MG TABLET (FP) PO SCH (09:41)
[2021-08-01] MEDS: BUDESONIDE/FORMETEROL FUMARATE 160/4.5 mcg INHALER IH SCH ×2 (09:44→22:10)
[2021-08-01 10:10] LABS: CALCIUM 9.4 mg/dL (8.5-10.1)
[2021-08-01 10:11] LABS: ALBUMIN 2.9 g/dl (3.4-5.0); BLOOD UREA NITROGEN 22.6 mg/dL (7-18)
[2021-08-01 10:14] LABS: CREATININE 0.8 mg/dL (0.55-1.3)
[2021-08-01 10:15] LABS: TOT PROT 6.2 g/dl (6.4-8.2)
[2021-08-01 11:46] LABS: ANISOCYTOSIS 0; HELMET CELLS 0; HOWELL-JOLLY BODIES 0; MACROCYTOSIS 0; OVALOCYTE 0; PLATELET ESTIMATE NORMAL; ROULEAU 0; SICKELED CELLS 0; TARGET CELLS 0; TEAR DROP CELLS 0; TOXIC GRANULATION 0
[2021-08-01] MEDS ORDERED: AMPICILLIN NA/SULBACTAM NA 1.5 GM VIAL ONE ×2 (14:27→21:33)
[2021-08-01] MEDS ORDERED: SODIUM CHLORIDE 100 ML IVPB ONE ×2 (14:27→21:33)
[2021-08-01] MEDS: AMPICILLIN NA/SULBACTAM NA 1.5 GM in SODIUM CHLORIDE 100 ML IVPB SCH ×2 (15:03→21:37)
[2021-08-01] MEDS: ACETAMINOPHEN 325 MG TABLET (FP) PO PRN ×2 (15:47→21:41)
[2021-08-01] MEDS: RIVAROXABAN 20 MG TABLET PO SCH (17:08)
[2021-08-01] MEDS ORDERED: ALPRAZolam 0.25 MG TABLET PO PRN (19:26)
[2021-08-01] MEDS: ROSUVASTATIN CA 5 MG TABLET PO SCH (21:37)
[2021-08-02] MEDS ORDERED: AMPICILLIN NA/SULBACTAM NA 1.5 GM VIAL ONE ×2 (02:52→08:21)
[2021-08-02] MEDS ORDERED: SODIUM CHLORIDE 100 ML IVPB ONE ×3 (02:52→14:55)
[2021-08-02] MEDS: AMPICILLIN NA/SULBACTAM NA 1.5 GM in SODIUM CHLORIDE 100 ML IVPB SCH ×2 (03:04→08:42)
[2021-08-02] MEDS: GABAPENTIN 300 MG CAPSULE PO SCH ×3 (06:40→21:35)
[2021-08-02] MEDS: metFORMIN HCL 500 MG TABLET (FP) PO SCH (06:40)
[2021-08-02] MEDS: predniSONE 5 MG TABLET (UD) PO SCH ×2 (06:40→21:37)
[2021-08-02] MEDS: REPAGLINIDE 1 MG TABLET PO SCH ×2 (06:40→17:47)
[2021-08-02] MEDS: ASCORBIC ACID 500 MG TABLET (FP) PO SCH (09:07)
[2021-08-02] MEDS: BUDESONIDE/FORMETEROL FUMARATE 160/4.5 mcg INHALER IH SCH ×2 (09:07→21:43)
[2021-08-02] MEDS: PANTOPRAZOLE 40 MG TABLET PO SCH (09:07)
[2021-08-02] MEDS: oxyCODONE HCL 5 MG TABLET PO PRN (09:08)
[2021-08-02] MEDS: DIGOXIN 0.25 MG TABLET PO SCH (09:09)
[2021-08-02 09:20] LABS: BASO % 0.8 % (0-2.0); EOS % 5.2 % (0-4.5); HEMATOCRIT 33.9 % (35.4-49); HEMOGLOBIN 11.5 GM/dL (11.7-16.9); LYMPH % 10.8 % (8-40); MCH 32.1 pg (25.7-33.7); MCHC 33.9 g/dl (32.0-35.9); MEAN CELL VOLUME 94.8 fl (80-96); NEUT % 75.2 % (42.8-82.8); PLATELET COUNT 277 10^3/uL (134-434); RBC 3.58 M/mm3 (4.00-5.60); WHITE BLOOD COUNT 8.2 K/mm3 (4.0-10.0)
[2021-08-02 10:02] LABS: ALBUMIN 2.7 g/dl (3.4-5.0); BLOOD UREA NITROGEN 20.6 mg/dL (7-18); CALCIUM 8.8 mg/dL (8.5-10.1)
[2021-08-02 10:06] LABS: CREATININE 0.8 mg/dL (0.55-1.3)
[2021-08-02 10:07] LABS: BILIRUBIN,TOTAL 0.7 mg/dL (0.2-1); TOT PROT 5.9 g/dl (6.4-8.2)
[2021-08-02 10:14] LABS: ANISOCYTOSIS 1+; MACROCYTOSIS 0; PLATELET ESTIMATE NORMAL
[2021-08-02] MEDS: ALPRAZolam 0.25 MG TABLET PO SCH ×2 (13:46→21:36)
[2021-08-02] MEDS ORDERED: AMPICILLIN NA/SULBACTAM NA 3 GM VIAL ONE (14:55)
[2021-08-02] MEDS ORDERED: AMPICILLIN NA/SULBACTAM NA 3 GM in SODIUM CHLORIDE 100 ML IVPB SCH (15:00)
[2021-08-02] MEDS: INSULIN SLIDING SCALE (NOVOLOG) 1 VIAL SQ SCH ×2 (16:42→21:38)
[2021-08-02] MEDS: RIVAROXABAN 20 MG TABLET PO SCH (17:47)
[2021-08-02] MEDS ORDERED: DEXTROSE 5%-WATER 100 ML IVPB ONE (20:25)
[2021-08-02] MEDS: CEFTRIAXONE 2 GM in DEXTROSE 5%-WATER 2 GM/100 ML BAG IVPB SCH (20:41)
[2021-08-02] MEDS: ROSUVASTATIN CA 5 MG TABLET PO SCH (21:36)
[2021-08-03] MEDS: metFORMIN HCL 500 MG TABLET (FP) PO SCH (06:47)
[2021-08-03] MEDS: REPAGLINIDE 1 MG TABLET PO SCH ×2 (06:47→17:13)
[2021-08-03] MEDS: predniSONE 5 MG TABLET (UD) PO SCH ×2 (06:47→21:27)
[2021-08-03] MEDS: INSULIN SLIDING SCALE (NOVOLOG) 1 VIAL SQ SCH ×4 (06:49→21:32)
[2021-08-03] MEDS: GABAPENTIN 300 MG CAPSULE PO SCH ×3 (06:49→21:28)
[2021-08-03] MEDS ORDERED: DEXTROSE 5%-WATER 100 ML IVPB ONE (09:12)
[2021-08-03] MEDS: PANTOPRAZOLE 40 MG TABLET PO SCH (09:24)
[2021-08-03] MEDS: BUDESONIDE/FORMETEROL FUMARATE 160/4.5 mcg INHALER IH SCH ×2 (09:24→21:32)
[2021-08-03] MEDS: ALPRAZolam 0.25 MG TABLET PO SCH ×2 (09:24→21:27)
[2021-08-03] MEDS: DIGOXIN 0.25 MG TABLET PO SCH (09:24)
[2021-08-03] MEDS: ASCORBIC ACID 500 MG TABLET (FP) PO SCH (09:24)
[2021-08-03] MEDS: CEFTRIAXONE 2 GM in DEXTROSE 5%-WATER 2 GM/100 ML BAG IVPB SCH (09:25)
[2021-08-03] MEDS: oxyCODONE HCL 5 MG TABLET PO PRN (10:22)
[2021-08-03 11:43] LABS: HEMATOCRIT 33.8 % (35.4-49); HEMOGLOBIN 11.6 GM/dL (11.7-16.9); MCH 32.5 pg (25.7-33.7); MCHC 34.2 g/dl (32.0-35.9); MEAN CELL VOLUME 94.9 fl (80-96); MEAN PLT VOLUME 7.2 fl (7.5-11.1); PLATELET COUNT 299 10^3/uL (134-434); RBC 3.57 M/mm3 (4.00-5.60); RDW 14.1 % (11.9-15.9); WHITE BLOOD COUNT 9.8 K/mm3 (4.0-10.0)
[2021-08-03 12:08] LABS: BLOOD UREA NITROGEN 17.6 mg/dL (7-18); CALCIUM 8.8 mg/dL (8.5-10.1)
[2021-08-03 12:09] LABS: ALBUMIN 2.6 g/dl (3.4-5.0)
[2021-08-03 12:12] LABS: CREATININE 0.8 mg/dL (0.55-1.3)
[2021-08-03 12:13] LABS: BILIRUBIN,TOTAL 0.3 mg/dL (0.2-1)
[2021-08-03 12:27] LABS: ANISOCYTOSIS 0; HELMET CELLS 0; HOWELL-JOLLY BODIES 0; MACROCYTOSIS 0; OVALOCYTE 0; PLATELET ESTIMATE NORMAL; ROULEAU 0; SICKELED CELLS 0; TARGET CELLS 0; TEAR DROP CELLS 0; TOXIC GRANULATION 0
[2021-08-03 12:39] LABS: ERYTHROCYTE SEDIMENTATION RATE 102 mm/hr (0-20)
[2021-08-03] MEDS: ACETAMINOPHEN 325 MG TABLET (FP) PO PRN (13:22)
[2021-08-03] MEDS: RIVAROXABAN 20 MG TABLET PO SCH (17:13)
[2021-08-03] MEDS: ROSUVASTATIN CA 5 MG TABLET PO SCH (21:26)
[2021-08-04 05:17] VITALS: BP 125/56; TEMP 98.3
[2021-08-04] MEDS: REPAGLINIDE 1 MG TABLET PO SCH (06:30)
[2021-08-04] MEDS: GABAPENTIN 300 MG CAPSULE PO SCH (06:30)
[2021-08-04] MEDS: metFORMIN HCL 500 MG TABLET (FP) PO SCH (06:31)
[2021-08-04] MEDS: predniSONE 5 MG TABLET (UD) PO SCH (06:31)
[2021-08-04] MEDS: INSULIN SLIDING SCALE (NOVOLOG) 1 VIAL SQ SCH ×2 (06:34→11:44)
[2021-08-04 09:40] LABS: HEMATOCRIT 35.9 % (35.4-49); HEMOGLOBIN 12.2 GM/dL (11.7-16.9); MCHC 33.9 g/dl (32.0-35.9); MEAN CELL VOLUME 94.2 fl (80-96); MEAN PLT VOLUME 6.9 fl (7.5-11.1); PLATELET COUNT 339 10^3/uL (134-434); RBC 3.81 M/mm3 (4.00-5.60); RDW 14.3 % (11.9-15.9); WHITE BLOOD COUNT 10.1 K/mm3 (4.0-10.0)
[2021-08-04 10:05] LABS: ALBUMIN 2.8 g/dl (3.4-5.0); BLOOD UREA NITROGEN 16.2 mg/dL (7-18)
[2021-08-04 10:08] LABS: CREATININE 0.9 mg/dL (0.55-1.3)
[2021-08-04 10:10] LABS: BILIRUBIN,TOTAL 0.5 mg/dL (0.2-1); TOT PROT 6.3 g/dl (6.4-8.2)
[2021-08-04] MEDS ORDERED: DEXTROSE 5%-WATER 100 ML IVPB ONE (10:10)
[2021-08-04] MEDS: ASCORBIC ACID 500 MG TABLET (FP) PO SCH (10:14)
[2021-08-04] MEDS: ALPRAZolam 0.25 MG TABLET PO SCH (10:14)
[2021-08-04] MEDS: PANTOPRAZOLE 40 MG TABLET PO SCH (10:14)
[2021-08-04] MEDS: DIGOXIN 0.25 MG TABLET PO SCH (10:14)
[2021-08-04] MEDS: BUDESONIDE/FORMETEROL FUMARATE 160/4.5 mcg INHALER IH SCH (10:15)
[2021-08-04] MEDS: CEFTRIAXONE 2 GM in DEXTROSE 5%-WATER 2 GM/100 ML BAG IVPB SCH (10:15)
[2021-08-04 10:16] VITALS: PULSE 72
[2021-08-04 10:37] LABS: ANISOCYTOSIS 0; MACROCYTOSIS 0; PLATELET ESTIMATE NORMAL
[2021-08-04] MEDS: oxyCODONE HCL 5 MG TABLET PO PRN (12:09)
[2021-08-04] MEDS: ACETAMINOPHEN 325 MG TABLET (FP) PO PRN (12:10)
== END 2021-08-04 14:45 | disposition home health service (06) | DRG 920 ==
LOC: JER 10:21 → JERBED 12:41 → J6S 21:32
PROVIDERS: ADMIT Internal Medicine; ATTEND Internal Medicine
PROC: 02HV33Z Insertion of Infusion Device into Superior Vena Cava, Percutaneous Approach (ICD-10-PCS; principal; 2021-08-03)
PROC: B518ZZA Fluoroscopy of Superior Vena Cava, Guidance (ICD-10-PCS; 2021-08-03)
DX: T81.31XA Disruption of external operation (surgical) wound, not elsewhere classified, initial encounter (principal); T81.49XA Infection following a procedure, other surgical site, initial encounter; E27.40 Unspecified adrenocortical insufficiency; C79.9 Secondary malignant neoplasm of unspecified site; M00.9 Pyogenic arthritis, unspecified; Y83.8 Other surgical procedures as the cause of abnormal reaction of the patient, or of later complication, without mention of misadventure at the time of the procedure; B96.1 Klebsiella pneumoniae [K. pneumoniae] as the cause of diseases classified elsewhere; J44.9 Chronic obstructive pulmonary disease, unspecified; I48.91 Unspecified atrial fibrillation; I10 Essential (primary) hypertension; K57.90 Diverticulosis of intestine, part unspecified, without perforation or abscess without bleeding; E11.9 Type 2 diabetes mellitus without complications; M54.50 Low back pain, unspecified; R56.9 Unspecified convulsions; R94.5 Abnormal results of liver function studies; Z96.652 Presence of left artificial knee joint; Z90.5 Acquired absence of kidney
CPT/HCPCS: 36415; 36569; 71045-TC-FY; 73562-TC-LT-FY; 73718-TC-LT; 76700-TC; 80053; 82962; 85025; 85610; 85651; 86140; 86850; 86900; 86901; 87040; 87070; 87186; 87205; 93005; 93010; 93971-TC; 97116-GP; 97162-GP; 99285-25; C9803; G0480; U0003; U0005

== ENCOUNTER 2021-08-04 19:11 | Inpatient (IN) | payer OTHER, BC ==
[2021-08-04] MEDS ORDERED: VANCOMYCIN 1 GM in D5W (PRE-DOCKED) 1,000 MG/250 ML IVPB ONE (20:04)
[2021-08-04] MEDS ORDERED: PIPERACILLIN/TAZOB 3.375 GM 3.375 GM in DEXTROSE 5%-WATER - 50 ML IVPB ONE (20:05)
[2021-08-04] MEDS ORDERED: VANCOMYCIN 1 GRAM (PRE-DOCKED) 1,000 MG/250 ML BAG IVPB ONE (20:34)
[2021-08-04] MEDS ORDERED: PIPERACILLIN/TAZOB 3.375 GM 3.375 GM/50 ML BAG IVPB ONE (20:35)
[2021-08-04 21:01] LABS: BASO % 0.7 % (0-2.0); EOS % 2.4 % (0-4.5); HEMATOCRIT 38.8 % (35.4-49); HEMOGLOBIN 13.1 GM/dL (11.7-16.9); LYMPH % 7.4 % (8-40); MCH 31.9 pg (25.7-33.7); MCHC 33.7 g/dl (32.0-35.9); MEAN CELL VOLUME 94.5 fl (80-96); MEAN PLT VOLUME 6.8 fl (7.5-11.1); MONO % 3.5 % (3.8-10.2); PLATELET COUNT 313 10^3/uL (134-434); RBC 4.11 M/mm3 (4.00-5.60); RDW 14.3 % (11.9-15.9); WHITE BLOOD COUNT 9.8 K/mm3 (4.0-10.0)
[2021-08-04 21:12] LABS: CHLORIDE 98 mmol/L (98-107); SODIUM 137 mmol/L (136-145)
[2021-08-04 21:15] LABS: ALBUMIN 3.1 g/dl (3.4-5.0); ANION GAP 8 MMOL/L (8-16); CALCIUM 9.4 mg/dL (8.5-10.1); CO2 31 mmol/L (21-32); GLUCOSE,RANDOM 110 mg/dL (74-106)
[2021-08-04 21:18] LABS: SGOT/AST 47 U/L (15-37); SGPT/ALT 71 U/L (13-61)
[2021-08-04 21:20] LABS: BILIRUBIN,TOTAL 0.6 mg/dL (0.2-1); TOT PROT 6.7 g/dl (6.4-8.2)
[2021-08-04 21:21] LABS: ALK PHOS 145 U/L (45-117)
[2021-08-04 21:22] LABS: LACTIC ACID 2.4 mmol/L (0.4-2.0)
[2021-08-04] MEDS ORDERED: oxyCODONE HCL 5 MG TABLET PO PRN (22:47)
[2021-08-04] MEDS ORDERED: PATIENT'S OWN MEDICATION (NON-FORMULARY) (Levalbuterol Tartrate [Xopenex Hfa] 15 GM Hfa.Ae IH PRN (22:47)
[2021-08-04] MEDS ORDERED: SODIUM CHLORIDE 0.9% 500 ML INFUS.BAG IV ONE (23:01)
[2021-08-05] MEDS: NYSTATIN 500,000 UNITS/5 ML SUSPENSION PO SCH ×4 (01:02→17:12)
[2021-08-05 02:05] LABS: LACTIC ACID 3.8 mmol/L (0.4-2.0)
[2021-08-05] MEDS ORDERED: SODIUM CHLORIDE 0.9% 500 ML INFUS.BAG IV ONE ×2 (02:30→02:39)
[2021-08-05 03:10] LABS: EPI CELLS 4 /uL (0-25.1); HYALINE CASTS 1 /uL (0-3.1); URINE APPEARANCE CLEAR; URINE BACTERIA 1 /uL (0-1359); URINE BILIRUBIN NEGATIVE (NEGATIVE); URINE COLOR YELLOW; URINE GLUCOSE (UA) TRACE (NEGATIVE); URINE KETONE TRACE (NEGATIVE); URINE LEUK ESTERASE NEGATIVE (NEGATIVE); URINE NITRITE NEGATIVE (NEGATIVE); URINE PROTEIN 1+ (NEGATIVE); URINE RBC 19 /uL (0-23.9); URINE WBC 30 /uL (0-25.8)
[2021-08-05] MEDS ORDERED: GABAPENTIN 100 MG CAPSULE ONE (06:02)
[2021-08-05] MEDS ORDERED: ACETAMINOPHEN 325 MG TABLET (FP) ONE (06:02)
[2021-08-05] MEDS: GABAPENTIN 300 MG CAPSULE PO SCH ×3 (06:07→21:39)
[2021-08-05] MEDS: ACETAMINOPHEN 325 MG TABLET (FP) PO PRN ×3 (06:07→21:37)
[2021-08-05] MEDS ORDERED: metFORMIN HCL 500 MG TABLET (FP) ONE (06:11)
[2021-08-05] MEDS ORDERED: metoPROLOL SUCCINATE 25 MG TAB.SR.24H (FP) ONE (06:12)
[2021-08-05] MEDS: metFORMIN HCL 500 MG TABLET (FP) PO SCH (06:16)
[2021-08-05] MEDS ORDERED: predniSONE 5 MG TABLET (UD) PO SCH (07:00)
[2021-08-05] MEDS: REPAGLINIDE 2 MG TABLET (FP) PO SCH ×2 (08:00→17:09)
[2021-08-05] MEDS ORDERED: ASCORBIC ACID 500 MG TABLET (FP) ONE (08:02)
[2021-08-05] MEDS ORDERED: DIGOXIN 0.25 MG TABLET ONE (08:02)
[2021-08-05] MEDS ORDERED: CEFTRIAXONE 2 GM/100 ML BAG IVPB ONE (08:03)
[2021-08-05] MEDS ORDERED: PANTOPRAZOLE 40 MG TABLET ONE (08:03)
[2021-08-05] MEDS ORDERED: PATIENT'S OWN MEDICATION (NON-FORMULARY) (Ceftriaxone 2 GM Vial) IVPB SCH (10:00)
[2021-08-05] MEDS ORDERED: oxyCODONE HCL 5 MG TABLET ONE (10:30)
[2021-08-05] MEDS: oxyCODONE HCL 5 MG TABLET PO PRN ×3 (10:30→21:37)
[2021-08-05] MEDS: ASCORBIC ACID 500 MG TABLET (FP) PO SCH (10:35)
[2021-08-05] MEDS: PANTOPRAZOLE 40 MG TABLET PO SCH (10:35)
[2021-08-05] MEDS: LACTOBACILLUS ACIDOPHILUS 1 TABLET PO SCH (10:35)
[2021-08-05] MEDS: CEFTRIAXONE 2 GM in SODIUM CHLORIDE 100 ML IVPB SCH (10:35)
[2021-08-05] MEDS: DIGOXIN 0.25 MG TABLET PO SCH (10:35)
[2021-08-05] MEDS: INSULIN SLIDING SCALE (NOVOLOG) 1 VIAL SQ SCH ×3 (12:32→21:42)
[2021-08-05] MEDS: BUDESONIDE/FORMETEROL FUMARATE 160/4.5 mcg INHALER IH SCH ×3 (12:33→21:43)
[2021-08-05 16:12] VITALS: BMI 25.1
[2021-08-05] MEDS ORDERED: REPAGLINIDE 1 MG TABLET PO SCH (16:58)
[2021-08-05] MEDS: RIVAROXABAN 20 MG TABLET PO SCH (17:15)
[2021-08-05] MEDS: ROSUVASTATIN CA 5 MG TABLET PO SCH (21:38)
[2021-08-05] MEDS: ALPRAZolam 0.25 MG TABLET PO PRN (21:38)
[2021-08-05] MEDS: NYSTATIN 100000 UNIT/GM TOPICAL OINTMENT 15 GM TUBE TP SCH (21:42)
[2021-08-05] MEDS: predniSONE 2.5 MG TABLET PO SCH (22:34)
[2021-08-06] MEDS: metFORMIN HCL 500 MG TABLET (FP) PO SCH (06:15)
[2021-08-06] MEDS: INSULIN SLIDING SCALE (NOVOLOG) 1 VIAL SQ SCH ×4 (06:15→21:31)
[2021-08-06] MEDS: GABAPENTIN 300 MG CAPSULE PO SCH ×3 (06:15→21:29)
[2021-08-06] MEDS: predniSONE 10 MG TABLET (UD) PO SCH (06:16)
[2021-08-06] MEDS: oxyCODONE HCL 5 MG TABLET PO PRN ×3 (06:24→21:31)
[2021-08-06] MEDS: REPAGLINIDE 1 MG TABLET PO SCH ×2 (07:13→16:56)
[2021-08-06] MEDS ORDERED: SODIUM CHLORIDE 100 ML IVPB ONE (10:35)
[2021-08-06] MEDS: ASCORBIC ACID 500 MG TABLET (FP) PO SCH (10:44)
[2021-08-06] MEDS: NYSTATIN 100000 UNIT/GM TOPICAL OINTMENT 15 GM TUBE TP SCH ×2 (10:44→21:29)
[2021-08-06] MEDS: CEFTRIAXONE 2 GM in SODIUM CHLORIDE 100 ML IVPB SCH (10:44)
[2021-08-06] MEDS: BUDESONIDE/FORMETEROL FUMARATE 160/4.5 mcg INHALER IH SCH ×2 (10:44→21:29)
[2021-08-06] MEDS: PANTOPRAZOLE 40 MG TABLET PO SCH (10:44)
[2021-08-06] MEDS: LACTOBACILLUS ACIDOPHILUS 1 TABLET PO SCH (10:44)
[2021-08-06] MEDS: DIGOXIN 0.25 MG TABLET PO SCH (11:34)
[2021-08-06] MEDS: RIVAROXABAN 20 MG TABLET PO SCH (17:02)
[2021-08-06] MEDS: ALPRAZolam 0.25 MG TABLET PO PRN (21:28)
[2021-08-06] MEDS: ROSUVASTATIN CA 5 MG TABLET PO SCH (21:28)
[2021-08-06] MEDS: predniSONE 2.5 MG TABLET PO SCH (21:29)
[2021-08-06] MEDS: ACETAMINOPHEN 325 MG TABLET (FP) PO PRN (21:30)
[2021-08-06] MEDS: INSULIN (LEVEMIR) 100 UNITS/ML UNITS SQ SCH (21:31)
[2021-08-07] MEDS: GABAPENTIN 300 MG CAPSULE PO SCH ×3 (06:37→21:31)
[2021-08-07] MEDS: predniSONE 10 MG TABLET (UD) PO SCH (06:38)
[2021-08-07] MEDS: INSULIN SLIDING SCALE (NOVOLOG) 1 VIAL SQ SCH ×4 (06:38→21:35)
[2021-08-07] MEDS: metFORMIN HCL 500 MG TABLET (FP) PO SCH (06:38)
[2021-08-07] MEDS: REPAGLINIDE 1 MG TABLET PO SCH ×2 (06:56→17:54)
[2021-08-07] MEDS ORDERED: SODIUM CHLORIDE 100 ML IVPB ONE (10:08)
[2021-08-07] MEDS: LACTOBACILLUS ACIDOPHILUS 1 TABLET PO SCH (10:11)
[2021-08-07] MEDS: PANTOPRAZOLE 40 MG TABLET PO SCH (10:11)
[2021-08-07] MEDS: ASCORBIC ACID 500 MG TABLET (FP) PO SCH (10:11)
[2021-08-07] MEDS: CEFTRIAXONE 2 GM in SODIUM CHLORIDE 100 ML IVPB SCH (10:12)
[2021-08-07] MEDS: DIGOXIN 0.25 MG TABLET PO SCH (10:13)
[2021-08-07] MEDS: BUDESONIDE/FORMETEROL FUMARATE 160/4.5 mcg INHALER IH SCH ×2 (10:14→21:31)
[2021-08-07 10:39] LABS: BASO % 0.6 % (0-2.0); EOS % 3.6 % (0-4.5); HEMATOCRIT 33.1 % (35.4-49); HEMOGLOBIN 11.3 GM/dL (11.7-16.9); LYMPH % 8.4 % (8-40); MCH 32.2 pg (25.7-33.7); MCHC 34.3 g/dl (32.0-35.9); MEAN CELL VOLUME 93.8 fl (80-96); MEAN PLT VOLUME 7.1 fl (7.5-11.1); MONO % 6.1 % (3.8-10.2); NEUT % 81.3 % (42.8-82.8); PLATELET COUNT 308 10^3/uL (134-434); RBC 3.52 M/mm3 (4.00-5.60); RDW 13.7 % (11.9-15.9); WHITE BLOOD COUNT 7.8 K/mm3 (4.0-10.0)
[2021-08-07 10:51] LABS: ALBUMIN 2.6 g/dl (3.4-5.0)
[2021-08-07 10:52] LABS: BLOOD UREA NITROGEN 12.9 mg/dL (7-18)
[2021-08-07 10:55] LABS: CREATININE 0.8 mg/dL (0.55-1.3)
[2021-08-07 10:56] LABS: BILIRUBIN,TOTAL 0.4 mg/dL (0.2-1); TOT PROT 5.8 g/dl (6.4-8.2)
[2021-08-07] MEDS: oxyCODONE HCL 5 MG TABLET PO PRN ×2 (12:04→22:49)
[2021-08-07] MEDS: NYSTATIN 100000 UNIT/GM TOPICAL OINTMENT 15 GM TUBE TP SCH ×2 (16:41→21:31)
[2021-08-07] MEDS: RIVAROXABAN 20 MG TABLET PO SCH (17:54)
[2021-08-07] MEDS: INSULIN (LEVEMIR) 100 UNITS/ML UNITS SQ SCH (21:32)
[2021-08-07] MEDS: ROSUVASTATIN CA 5 MG TABLET PO SCH (21:34)
[2021-08-07] MEDS ORDERED: INSULIN (LEVEMIR) 100 UNITS/ML UNITS SQ SCH (22:00)
[2021-08-07] MEDS: ALPRAZolam 0.25 MG TABLET PO PRN (22:49)
[2021-08-07] MEDS: predniSONE 5 MG TABLET (UD) PO SCH (22:50)
[2021-08-08] MEDS: oxyCODONE HCL 5 MG TABLET PO PRN ×4 (05:14→23:46)
[2021-08-08] MEDS: GABAPENTIN 300 MG CAPSULE PO SCH ×3 (05:15→21:58)
[2021-08-08] MEDS: predniSONE 10 MG TABLET (UD) PO SCH (06:17)
[2021-08-08] MEDS: metFORMIN HCL 500 MG TABLET (FP) PO SCH (06:17)
[2021-08-08] MEDS: REPAGLINIDE 1 MG TABLET PO SCH ×2 (06:18→17:06)
[2021-08-08] MEDS: INSULIN SLIDING SCALE (NOVOLOG) 1 VIAL SQ SCH ×4 (06:18→22:10)
[2021-08-08] MEDS ORDERED: SODIUM CHLORIDE 100 ML IVPB ONE (09:04)
[2021-08-08] MEDS: ASCORBIC ACID 500 MG TABLET (FP) PO SCH (09:22)
[2021-08-08] MEDS: CEFTRIAXONE 2 GM in SODIUM CHLORIDE 100 ML IVPB SCH (09:22)
[2021-08-08] MEDS: PANTOPRAZOLE 40 MG TABLET PO SCH (09:22)
[2021-08-08] MEDS: LACTOBACILLUS ACIDOPHILUS 1 TABLET PO SCH (09:22)
[2021-08-08] MEDS: ACETAMINOPHEN 325 MG TABLET (FP) PO PRN (09:28)
[2021-08-08] MEDS: DIGOXIN 0.25 MG TABLET PO SCH (09:30)
[2021-08-08] MEDS: POLYETHYLENE GLYCOL (HEALTHYLAX) 3350 17 GM PACKET PO PRN (09:30)
[2021-08-08] MEDS: NYSTATIN 100000 UNIT/GM TOPICAL OINTMENT 15 GM TUBE TP SCH ×2 (09:31→21:58)
[2021-08-08] MEDS: BUDESONIDE/FORMETEROL FUMARATE 160/4.5 mcg INHALER IH SCH ×2 (09:32→21:58)
[2021-08-08] MEDS: RIVAROXABAN 20 MG TABLET PO SCH (17:04)
[2021-08-08] MEDS: ROSUVASTATIN CA 5 MG TABLET PO SCH (21:57)
[2021-08-08] MEDS: ALPRAZolam 0.25 MG TABLET PO PRN (21:58)
[2021-08-08] MEDS: predniSONE 5 MG TABLET (UD) PO SCH (21:59)
[2021-08-08] MEDS ORDERED: DOCUSATE SODIUM 100 MG CAPSULE (FP) PO SCH (22:00)
[2021-08-08] MEDS: INSULIN (LEVEMIR) 100 UNITS/ML UNITS SQ SCH (22:10)
[2021-08-09] MEDS: predniSONE 10 MG TABLET (UD) PO SCH (06:10)
[2021-08-09] MEDS: GABAPENTIN 300 MG CAPSULE PO SCH ×2 (06:10→14:31)
[2021-08-09] MEDS: metFORMIN HCL 500 MG TABLET (FP) PO SCH (06:11)
[2021-08-09] MEDS: INSULIN SLIDING SCALE (NOVOLOG) 1 VIAL SQ SCH ×3 (06:11→16:56)
[2021-08-09] MEDS: REPAGLINIDE 1 MG TABLET PO SCH ×2 (06:12→17:04)
[2021-08-09] MEDS ORDERED: SODIUM CHLORIDE 100 ML IVPB ONE (08:56)
[2021-08-09] MEDS: CEFTRIAXONE 2 GM in SODIUM CHLORIDE 100 ML IVPB SCH (09:11)
[2021-08-09] MEDS: POLYETHYLENE GLYCOL (HEALTHYLAX) 3350 17 GM PACKET PO PRN (09:12)
[2021-08-09] MEDS: oxyCODONE HCL 5 MG TABLET PO PRN ×2 (09:12→20:05)
[2021-08-09] MEDS: ASCORBIC ACID 500 MG TABLET (FP) PO SCH (09:13)
[2021-08-09] MEDS: DIGOXIN 0.25 MG TABLET PO SCH (09:13)
[2021-08-09] MEDS: LACTOBACILLUS ACIDOPHILUS 1 TABLET PO SCH (09:13)
[2021-08-09] MEDS: PANTOPRAZOLE 40 MG TABLET PO SCH (09:13)
[2021-08-09] MEDS: BUDESONIDE/FORMETEROL FUMARATE 160/4.5 mcg INHALER IH SCH (09:14)
[2021-08-09] MEDS: NYSTATIN 100000 UNIT/GM TOPICAL OINTMENT 15 GM TUBE TP SCH (09:14)
[2021-08-09 15:12] VITALS: BP 113/59; PULSE 72; TEMP 98.2
[2021-08-09] MEDS: RIVAROXABAN 20 MG TABLET PO SCH (17:03)
[2021-08-09] MEDS: ALPRAZolam 0.25 MG TABLET PO PRN (20:06)
== END 2021-08-09 20:23 | disposition short-term general hospital (02) | DRG 560 ==
LOC: JER 19:11 → JERBED 20:06 → J5S 08-05 11:11
PROVIDERS: ADMIT Internal Medicine; ATTEND Internal Medicine
DX: T84.59XA Infection and inflammatory reaction due to other internal joint prosthesis, initial encounter (principal); R65.10 Systemic inflammatory response syndrome (SIRS) of non-infectious origin without acute organ dysfunction; M00.9 Pyogenic arthritis, unspecified; J44.9 Chronic obstructive pulmonary disease, unspecified; J45.909 Unspecified asthma, uncomplicated; I10 Essential (primary) hypertension; E11.9 Type 2 diabetes mellitus without complications; E78.5 Hyperlipidemia, unspecified; K57.90 Diverticulosis of intestine, part unspecified, without perforation or abscess without bleeding; Y83.9 Surgical procedure, unspecified as the cause of abnormal reaction of the patient, or of later complication, without mention of misadventure at the time of the procedure
CPT/HCPCS: 36415; 71045-TC-FY; 80053; 80162; 81003; 82550; 82962; 83605; 84484; 85025; 87040; 87070; 87086; 87186; 87205; 87804; 93005; 93010; 97116-GP; 97162-GP; 99285-25; C9803; U0003; U0005